=== PATIENT | female | born 1960 | race Caucasian/White ===

== ENCOUNTER → 2020-08-11 14:23 | Outpatient (BNV) | payer MEDICARE, MEDICAID, SELFPAY | PROVIDERS: PCP Internal Medicine; Visit Provider Internal Medicine | DX: C7A.00 Malignant carcinoid tumor of unspecified site (principal) | CPT/HCPCS: 99213; 99214; G2211 ==

== ENCOUNTER → 2020-09-01 15:14 | Outpatient (BNVA) | payer MEDICARE, MEDICAID, SELFPAY | PROVIDERS: PCP Internal Medicine; Referring Provider Internal Medicine; Visit Provider Internal Medicine Cardiovascular Disease | DX: B35.1 Tinea unguium (principal); M79.672 Pain in left foot; M79.671 Pain in right foot | CPT/HCPCS: 93005 ==

== ENCOUNTER 2020-09-09 13:19 | Outpatient (REF) | payer MEDICARE, MEDICAID, SELFPAY ==
[2020-09-09 17:18] LABS: Anion Gap 15 (12-20); Blood Urea Nitrogen 23 mg/dL (9-16); Calcium 8.1 mg/dL (8.4-10.2); Carbon Dioxide 27 mmol/L (22-29); Chloride 104 mmol/L (96-108); Estimated Glomerular Filt Rate > 60; Glucose Random 106 mg/dL (60-115); Sodium 141 mmol/L (135-145)
== END 2020-09-09 13:20 | disposition home or self-care (01) ==
LOC: HO.HMGCLDS 13:19
PROVIDERS: Absent Provider Internal Medicine; PCP Internal Medicine; Visit Provider Internal Medicine
DX: Z20.828 Contact with and (suspected) exposure to other viral communicable diseases (principal)
CPT/HCPCS: 80048; C9803; U0003

== ENCOUNTER 2020-09-09 23:33 | Emergency (ER) | payer MEDICARE, MEDICAID, SELFPAY ==
[2020-09-09 23:51] VITALS: BP 113/61; PULSE 72; RESP 16; TEMP 37.1; O2SAT 97; BMI 23.5
[2020-09-10] VITALS: PULSE 78; RESP 16; O2SAT 100
--- NOTE | 2020-09-10 00:23 | PC.NURSE ---
PT TO ROOM, CHG INTO GOWN AND MD AT BEDSIDE WITH PT. PT ARRIVES ALERT, RESPIRATIONS EASY, N/L. SKIN W/D. PT C/O TIGHTNESS TO MID STERNAL CHEST AREA, RATING PAIN 4/10. VS OBTAINED. PT WAS TESTED FOR COVID TODAY WITH RESULTS PENDING.
--- NOTE | 2020-09-10 00:25 | ECG_ITS ---
Test Reason : CHEST PAIN Blood Pressure : / mmHG Vent. Rate : 073 BPM Atrial Rate : 073 BPM P-R Int : 228 ms QRS Dur : 070 ms QT Int : 380 ms P-R-T Axes : 090 042 076 degrees QTc Int : 418 ms Sinus rhythm with 1st degree A-V block Otherwise normal ECG When compared with ECG of 25-JUL-2020 19:11, Premature atrial complexes are no longer Present Referred By: Maria Guadalupe Menchaca Electronically Signed By:EDUARDO LARKIN MD
--- NOTE | 2020-09-10 00:25 | XR_ITS ---
EXAMINATION: CHEST 1 VIEW CLINICAL INFORMATION: Chest pain. COMPARISON: 07/25/2020. TECHNIQUE: An AP view of the chest is provided. FINDINGS: The cardiac silhouette is not enlarged. The mediastinal and hilar contours are unremarkable. There are neither pleural effusions nor pneumothoraces. There are no consolidations. The osseous structures are stable. XR/XR chest 1V IMPRESSION: No evidence for acute disease.
--- NOTE | 2020-09-10 00:33 | ED.CHESTPAIN ---
HPI - Chest Pain General Chief Complaint: Chest Pain Stated Complaint: burning senstation in chest after covid testing Time Seen by Provider: 09/10/20 00:24 History of Present Illness HPI narrative: 60 years old history of high cholesterol presents today with having chest pain. The chest pain is sharp in nature is over middle of the chest. This been ongoing for about the last 2-1/2 hours. Patient denies any shortness of breath. No diaphoresis. No nausea no vomiting. Had not had a stress test in over last 5 years. Has not have any fever chills. No coughing. Related Data Home Medications Medication Instructions Recorded Confirmed albuterol mcg INHALATION 08/11/20 09/08/20 apixaban [Eliquis] 5 mg PO BID 08/11/20 09/08/20 cholecalciferol (vitamin D3) 25 mcg PO DAILY 08/11/20 09/08/20 [Vitamin D3] clonazepam 0.5 mg PO BID 08/11/20 09/08/20 docusate sodium [Colace] 100 mg PO DAILY 08/11/20 09/08/20 loperamide [Imodium] 2 mg PO Q6H PRN 08/11/20 09/08/20 omeprazole 20 mg PO DAILY 08/11/20 09/08/20 oxybutynin chloride 10 mg PO DAILY 08/11/20 09/08/20 oxycodone 5 mg PO Q4H PRN 08/11/20 09/08/20 simvastatin 20 mg PO QPM 08/11/20 09/08/20 dicyclomine 10 mg capsule 20 mg PO QID cap 09/08/20 09/08/20 meclizine 25 mg tablet 25 mg PO DAILY 09/08/20 09/08/20 Previous Rx's Medication Instructions Recorded loratadine 10 mg tablet 10 mg PO DAILY 90 Days #90 tab 08/25/20 montelukast 10 mg tablet 10 mg PO DAILY 90 Days #90 tab 08/25/20 dronedarone 400 mg tablet 400 mg PO BID 30 Days #60 tab 09/04/20 Allergies Allergy/AdvReac Type Severity Reaction Status Date / Time Erythromycin Allergy Unknown GI upset, Verified 08/19/20 11:03 increases pain erythromycin base AdvReac Intermediate GI UPSET Unverified 07/16/20 17:48 [Erythromycin Base] Motrin AdvReac Unknown GI Upset, Verified 08/19/20 11:03 increases pain Chocolate Allergy Mild RASH Uncoded 07/16/20 17:48 Environmental Allergy Unknown Unknown Uncoded 08/19/20 11:03 Review of Systems Review of Systems: Constitutional: No Weight loss, No Fever, No Chills, No Night Sweats, No Fatigue, No Malaise ENT/Mouth: No Hearing loss, No Ear Pain, No Nasal Congestion, No Sinus Pain, No Hoarseness, No sore throat, No Rhinorrhea, No Swallowing Difficulty Eyes: No Eye Pain, No Swelling, No Redness, No Foreign Body, No Discharge, No Vision Changes Cardiovascular: Positive Chest Pain, No SOB, No Dyspnea on Exertion, No Orthopnea, No Edema, No Palpitations Respiratory: No Cough, No Sputum, No Wheezing, No Smoke Exposure, No Dyspnea Gastrointestinal: No Nausea, No Vomiting, No Diarrhea, No Constipation, No abdominal Pain, No Hematochezia, No Melena Genitourinary: no irregular bleeding, No Dysuria, No Urinary Frequency, No Hematuria, No Urinary Incontinence, No Urgency, No Flank Pain, No Urinary Flow Changes, No Hesitancy Musculoskeletal: No joint pain, No Myalgias, No Joint Swelling Skin: No Skin Lesions, No rash Neuro: No Weakness, No Numbness, No Paresthesias, No Loss of Consciousness, No Dizziness, No Headache Psych: No Anxiety/Panic, No Depression, No SI/HI/AH/VH, No Social Issues, Heme/Lymph: No Bruising, No Bleeding,No Lymphadenopathy Endocrine: No Polyuria, No Polydipsia, No Temperature Intolerance Yes all other systems are reviewed and are negative [facility] Past Medical History Attestation statement: The following information was validated with the patient. Medical History Afib Anemia Arthritis Asthma Colon polyp Diabetes Environmental allergies Gastric polyp GERD (gastroesophageal reflux disease) Hyperlipemia IBS (irritable bowel syndrome) Lipid disorder Neuroendocrine neoplasm of gastrointestinal tract Overactive bladder Vitamin D deficiency Surgical History History of colonoscopy History of esophagogastroduodenoscopy Family History Family History Father Afib Pneumonia Brother Afib Heart disease Brother Heart disease Mother Unknown family medical history Social History Social History Housing: Assisted Living Facility Alcohol intake: never Smoking Status: Never smoker Advance Directives: No Advance Directives Information Provided: No Physical Exam Vital Signs: Vital Signs: Last Vital Signs Temp 98.8 F 09/09/20 23:51 Pulse 78 09/10/20 00:00 Resp 16 09/10/20 00:00 BP 113/61 09/09/20 23:51 Pulse Ox 100 09/10/20 00:00 Body Mass Index 23.5 Appearance: Alert. Oriented X3. No acute distress. Eyes: Pupils equal, round and reactive to light. ENT: Pharynx normal. Neck: Normal inspection. Neck supple. No lymph nodes noted. No crepitus CVS: Normal heart rate and rhythm. Pulses normal. Normal S1 and S2 Respiratory: No respiratory distress. Breath sounds normal. No Wheezing. No rales Abdomen: Soft and nontender. No rigidity. No distention. good BS x4 Skin: Skin warm and dry. Normal skin color. Normal skin turgor. Extremities: No lower extremity edema. Neurovascular intact to all extremities. No Lacerations. No Rash Neuro: Oriented X 3. No motor deficit. No sensory deficit. Moving all extermities. No slurred speech Discharge Plan Discharge Prescriptions: No Action montelukast [Singulair] 10 mg tablet 10 mg PO DAILY 90 Days Qty: 90 RF: 3 loratadine 10 mg tablet 10 mg PO DAILY 90 Days Qty: 90 RF: 3 Multaq 400 mg tablet 400 mg PO BID 30 Days Qty: 60 RF: 5 oxybutynin chloride 10 mg Tablet Extended Release 24hr 10 mg PO DAILY RF: 0 simvastatin 20 mg Tablet 20 mg PO QPM RF: 0 docusate sodium [Colace] 100 mg Capsule 100 mg PO DAILY RF: 0 albuterol 90 mcg/actuation Aerosol INHALATION RF: 0 cholecalciferol (vitamin D3) [Vitamin D3] 25 mcg (1,000 unit) Capsule 25 mcg PO DAILY RF: 0 omeprazole 20 mg Tablet,Delayed Release (Dr/Ec) 20 mg PO DAILY RF: 0 loperamide [Imodium] 2 mg Capsule 2 mg PO Q6H PRN (Reason: Diarrhea) RF: 0 clonazepam 0.5 mg Tablet 0.5 mg PO BID RF: 0 oxycodone 5 mg Capsule 5 mg PO Q4H PRN (Reason: Pain) RF: 0 Eliquis 5 mg Tablet 5 mg PO BID RF: 0 dicyclomine 10 mg capsule 20 mg PO QID RF: 0 meclizine 25 mg tablet 25 mg PO DAILY RF: 0
[2020-09-10 01:45] LABS: MANUAL DIFF FLAG NO
[2020-09-10 01:49] LABS: Basophils Percent Auto 0.3 % (0-2); Eosinophils Absolute Auto 0.1 X10*3/uL (0.0-0.4); Eosinophils Percent Auto 0.9 % (0-4); Hematocrit 33.8 % (37-47); Hemoglobin 10.8 g/dl (12.0-16.0); Imm Gran Abs Auto 0.02 X10*3/uL (0.00-0.03); Imm Gran Pct Auto 0.3 % (0.0-0.4); Lymphocytes Absolute Auto 2.1 X10*3/uL (1.2-4.9); Mean Corpuscular Hemoglobin 30.9 pg (27.0-33.0); Mean Corpuscular Volume 96.6 fL (80-98); Mean Platelet Volume 10.2 fL (9.4-12.3); Monocytes Absolute Auto 0.6 X10*3/uL (0.1-1.2); Monocytes Percent Auto 7.3 % (2-11); Neutrophils Percent Auto 64.2 % (45-73); Platelet Count 231 X10*3/uL (160-400); Red Cell Distribution Width 13.6 % (11.0-16.0); White Blood Count 7.7 X10*3/uL (4.8-10.8)
[2020-09-10 01:58] LABS: D Dimer < 200 NG/ML
[2020-09-10 02:13] LABS: Anion Gap 12 (12-20); Blood Urea Nitrogen 22 mg/dL (9-16); COVID-19 Test Negative (Negative); Calcium 8.2 mg/dL (8.4-10.2); Carbon Dioxide 28 mmol/L (22-29); Chloride 106 mmol/L (96-108); Creatinine Clr Calc Pharmacy 47.6; Estimated Glomerular Filt Rate > 60; Glucose Random 165 mg/dL (60-115); Potassium 4.5 mmol/l (3.3-5.1); Sodium 141 mmol/L (135-145)
[2020-09-10 02:14] LABS: Alanine Aminotransferase 12 U/L (0-31); Alkaline Phosphatase 59 U/L (39-117); Aspartate Amino Transferase 12 U/L (5-31); Bilirubin Direct < 0.2 mg/dL (0.0-0.5); Bilirubin Total 0.2 mg/dL (0.0-1.0); Lipase 54 U/L (8-78); Total Protein 6.5 g/dL (6.5-8.0)
[2020-09-10 02:21] LABS: Troponin-I High Sensitivity < 3.5 ng/L (<3.5-17.0)
[2020-09-10 04:00] VITALS: BP 107/53; PULSE 81; RESP 16
[2020-09-10 06:00] VITALS: BP 107/53; PULSE 67; RESP 16
[2020-09-10 07:11] LABS: Troponin-I High Sensitivity < 3.5 ng/L (<3.5-17.0)
--- NOTE | 2020-09-10 07:16 | PC.NURSE ---
PT RESTING IN THE STRETCHER ALERT AND ORIENTED, SKIN PWD, RESPIRATIONS EVEN AND UNLABORED, LS CLEAR. PT DENIES CHEST PAIN/SOB, AWAITING FOR BLOOD TEST RESULTS
--- NOTE | 2020-09-10 07:27 | PC.NURSE ---
PT'S WORKER FROM [facility] CALLED REQUESTING THAT THE HOSPITAL TRANSPORTS THE PT BACK [facility] THEY ARE UNABLE TO PICK THE PT UP AT THIS TIME, PT DOES HAVE SOME DEVELOPMENTAL DELAYS.
== END 2020-09-10 07:57 | disposition home or self-care (01) ==
PROVIDERS: Emergency Medicine Emergency Medical Services; Emergency Provider Emergency Medicine
DX: R07.9 Chest pain, unspecified (principal); E78.00 Pure hypercholesterolemia, unspecified; Z79.899 Other long term (current) drug therapy
CPT/HCPCS: 36415; 71045; 80048; 80076; 83690; 84484; 85025; 85379; 87635; 93005; 99284

== ENCOUNTER 2020-10-03 01:20 | Emergency (ER) | payer MEDICARE, MEDICAID, SELFPAY ==
[2020-10-03 01:23] VITALS: BP 116/67; PULSE 80; PULSE 82; RESP 18; TEMP 37.2; O2SAT 97; BMI 32.4
[2020-10-03 01:42] LABS: OBS Int Ctl Valid YES; OBS1 NEG (NEG)
--- NOTE | 2020-10-03 01:48 | ED.GENADULT ---
HPI - General Adult General Chief complaint: General Medical Stated complaint: BLOOD IN STOOL Time Seen by Provider: 10/03/20 01:34 Source: patient Mode of arrival: EMS Limitations: no limitations History of Present Illness HPI narrative: patient came in ambulance for seeing whitish stuff in the stool thought has a worm and slight reddish of thinking blood in the stool no abdominal pain stool was brown in color patient brought the stool sample which is well-formed brown color and with small whitish tissue no blood was seen Related Data Home Medications Medication Instructions Recorded Confirmed albuterol mcg INHALATION 08/11/20 09/19/20 cholecalciferol (vitamin D3) 25 mcg PO DAILY 08/11/20 09/19/20 [Vitamin D3] docusate sodium [Colace] 100 mg PO DAILY 08/11/20 09/19/20 loperamide [Imodium] 2 mg PO Q6H PRN 08/11/20 09/19/20 omeprazole 20 mg PO DAILY 08/11/20 09/19/20 oxybutynin chloride 10 mg PO DAILY 08/11/20 09/19/20 oxycodone 5 mg PO Q4H PRN 08/11/20 09/19/20 simvastatin 20 mg PO QPM 08/11/20 09/19/20 meclizine 25 mg tablet 25 mg PO DAILY 09/08/20 09/19/20 dicyclomine 20 mg tablet 20 mg PO TID PRN 09/18/20 09/19/20 loperamide 2 mg capsule 2 mg PO Q6H PRN 09/18/20 09/19/20 Previous Rx's Medication Instructions Recorded loratadine 10 mg tablet 10 mg PO DAILY 90 Days #90 tab 08/25/20 montelukast 10 mg tablet 10 mg PO DAILY 90 Days #90 tab 08/25/20 dronedarone 400 mg tablet 400 mg PO BID 30 Days #60 tab 09/04/20 apixaban 5 mg tablet 5 mg PO BID #60 tab 10/02/20 Allergies Allergy/AdvReac Type Severity Reaction Status Date / Time Erythromycin Allergy Unknown GI upset, Verified 09/18/20 14:28 increases pain erythromycin base AdvReac Intermediate GI UPSET Verified 09/18/20 14:28 [Erythromycin Base] Motrin AdvReac Unknown GI Upset, Verified 09/18/20 14:28 increases pain Chocolate Allergy Mild RASH Uncoded 07/16/20 17:48 Environmental Allergy Unknown Unknown Uncoded 08/19/20 11:03 Review of Systems Review of Systems: REVIEW OF SYSTEMS: Pertinent positives and negatives are stated above in the history. GEN: no fevers, chills, fatigue HEENT: no nasal congestion, sore throat, ear pain NEURO: no headache, dizziness, focal weakness PULM: no cough, shortness of breath CV: no chest pain, palpitations, LE edema ABD: no abdominal pain, nausea, vomiting, diarrhea : no dysuria, urgency, frequency SKIN: no rash ROS otherwise negative x 10 PMFSH Past Medical History Medical History Afib Anemia Arthritis Asthma Colon polyp Diabetes Environmental allergies Gastric polyp GERD (gastroesophageal reflux disease) Hyperlipemia IBS (irritable bowel syndrome) Lipid disorder Neuroendocrine neoplasm of gastrointestinal tract Overactive bladder Vitamin D deficiency Surgical History History of colonoscopy History of esophagogastroduodenoscopy Family History Family History Father Afib Pneumonia Brother Afib Heart disease Brother Heart disease Mother Unknown family medical history Social History Social History Housing: Assisted Living Facility Alcohol intake: never Smoking Status: Former smoker Smoked in Last 30 Days: No Use of substances other than those prescribed or required for medical reasons: No Any prior treatment program specific to substance use: No Advance Directives: No Advance Directives Information Provided: No Physical Exam Vital Signs: Vital Signs: Last Vital Signs Temp 99 F 10/03/20 01:23 Pulse 82 10/03/20 01:23 Resp 18 10/03/20 01:23 BP 116/67 10/03/20 01:23 Pulse Ox 97 10/03/20 01:23 Body Mass Index 32.4 Appearance: Alert. Oriented X3. No acute distress. Eyes: Pupils equal, round and reactive to light. ENT: Pharynx normal. Neck: Normal inspection. Neck supple. CVS: Normal heart rate and rhythm. Pulses normal. Respiratory: No respiratory distress. Breath sounds normal. Abdomen: Soft and nontender. rectal exam: brown stool Hemoccult negative no worm seen Skin: Skin warm and dry. Normal skin color. Normal skin turgor. Extremities: No lower extremity edema. Good range of movement Neuro: Oriented X 3. No motor deficit. No sensory deficit. Medical Decision Making Lab Data Lab results reviewed: Yes I reviewed the patient's lab results. Labs: Lab Results 10/03/20 Range/Units 01:34 Stool Occult Blood NEG (NEG) Discharge Plan Discharge Clinical Impression: Normal exam Patient Disposition: Home, Self-Care Instructions: Normal Exam (ED) Additional Instructions: no blood or worm seen in your stool today follow-up with PCP Prescriptions: No Action montelukast [Singulair] 10 mg tablet 10 mg PO DAILY 90 Days Qty: 90 RF: 3 loratadine 10 mg tablet 10 mg PO DAILY 90 Days Qty: 90 RF: 3 Multaq 400 mg tablet 400 mg PO BID 30 Days Qty: 60 RF: 5 apixaban [Eliquis] 5 mg tablet 5 mg PO BID Qty: 60 RF: 5 oxybutynin chloride 10 mg Tablet Extended Release 24hr 10 mg PO DAILY RF: 0 simvastatin 20 mg Tablet 20 mg PO QPM RF: 0 docusate sodium [Colace] 100 mg Capsule 100 mg PO DAILY RF: 0 albuterol 90 mcg/actuation Aerosol INHALATION RF: 0 cholecalciferol (vitamin D3) [Vitamin D3] 25 mcg (1,000 unit) Capsule 25 mcg PO DAILY RF: 0 omeprazole 20 mg Tablet,Delayed Release (Dr/Ec) 20 mg PO DAILY RF: 0 loperamide [Imodium] 2 mg Capsule 2 mg PO Q6H PRN (Reason: Diarrhea) RF: 0 oxycodone 5 mg Capsule 5 mg PO Q4H PRN (Reason: Pain) RF: 0 meclizine 25 mg tablet 25 mg PO DAILY RF: 0 dicyclomine 20 mg tablet 20 mg PO TID PRNRF: 0 loperamide [Imodium A-D] 2 mg capsule 2 mg PO Q6H PRNRF: 0
== END 2020-10-03 02:00 | disposition home or self-care (01) ==
LOC: HO.ED 01:52
PROVIDERS: Emergency Provider Internal Medicine
DX: Z03.89 Encounter for observation for other suspected diseases and conditions ruled out (principal); R19.5 Other fecal abnormalities; E11.9 Type 2 diabetes mellitus without complications; I48.91 Unspecified atrial fibrillation
CPT/HCPCS: 82272; 99283

== ENCOUNTER 2020-12-01 15:22 | Outpatient (REF) | payer MEDICARE, MEDICAID, SELFPAY ==
--- NOTE | 2020-12-01 15:25 | MM_ITS ---
EXAMINATION: MM SCREENING DIGITAL BREAST TOMOSYNTHESIS, BILATERAL CLINICAL INFORMATION: Screening. Asymptomatic. The lifetime risk of breast cancer based on the Tyrer-Cuzick Model is 8.3%. COMPARISON: Mammography: November 26, 2019 and studies dating back to May 17, 2012 TECHNIQUE: Digital breast tomosynthesis is performed in both the craniocaudal and mediolateral oblique views along with computer-aided detection (CAD). Synthesized 2D images are generated from the tomosynthesis. Bilateral exaggerated craniocaudal views performed. FINDINGS: There are scattered areas of fibroglandular density (ACR BI-RADS breast composition Category b). There are no significant masses, abnormal calcifications, or other abnormalities. MM/MM tomosynthesis screening BI IMPRESSION: There are no significant changes from prior study. ASSESSMENT: BI-RADS 1: Negative RECOMMENDATION: Routine annual mammography screening. This patient's information was entered into a reminder system with a target due date for their next mammogram.
== END 2020-12-01 15:23 | disposition home or self-care (01) ==
LOC: HO.MAMMO 15:22
PROVIDERS: PCP Internal Medicine; Visit Provider Internal Medicine
DX: Z12.31 Encounter for screening mammogram for malignant neoplasm of breast (principal)
CPT/HCPCS: 77063; 77067

== ENCOUNTER → 2020-12-10 15:15 | Outpatient (BNVA) | payer MEDICARE, MEDICAID, SELFPAY | PROVIDERS: PCP Internal Medicine; Visit Provider Internal Medicine Cardiovascular Disease | DX: I48.0 Paroxysmal atrial fibrillation (principal) | CPT/HCPCS: 93005; 99212 ==

== ENCOUNTER → 2021-03-09 15:02 | Outpatient (BNVA) | payer MEDICARE, MEDICAID, SELFPAY | PROVIDERS: PCP Internal Medicine; Visit Provider Internal Medicine Cardiovascular Disease | DX: I44.0 Atrioventricular block, first degree (principal) | CPT/HCPCS: 93005 ==

== ENCOUNTER 2021-03-16 16:18 | Emergency (ER) | payer MEDICARE, MEDICAID, SELFPAY ==
--- NOTE | ~2021-03-16 | XR_ITS ---
EXAMINATION: CR CHEST CLINICAL INFORMATION: Weakness. COMPARISON: Chest x-ray dated 09/10/2020, and 04/05/2019.. TECHNIQUE: AP portable upright view of the chest was obtained. FINDINGS: The cardiomediastinal silhouette is within normal limits in size. Lungs bilaterally are symmetrically hyperinflated. No focal consolidation, effusion or pneumothorax is seen. Bony structures are unremarkable. XR/XR chest 1V IMPRESSION: No acute cardiopulmonary process seen.
[2021-03-16 16:43] VITALS: BP 117/59; PULSE 74; RESP 18; TEMP 37.1; O2SAT 96; BMI 27.6
--- NOTE | 2021-03-16 21:36 | ED_ITS ---
HPI - Weakness General Chief complaint: Recheck/Abnormal Lab/Rx Stated complaint: low bp Time Seen by Provider: 03/16/21 21:36 Source: patient Mode of arrival: ambulatory Limitations: no limitations History of Present Illness Complaint: generalized weakness Onset (ago): day(s) (today at oncology clinic) Duration: constant Location: generalized Migration: none Severity: mild Quality: dull Relieving factors: rest Exacerbating factors: movement Context: history of similar Associated symptoms: denies other symptoms Related Data Home Medications Medication Instructions Recorded Confirmed albuterol 90 mcg INHALATION NEEDED PRN 08/11/20 01/05/21 docusate sodium [Colace] 100 mg PO DAILY 08/11/20 01/05/21 loperamide [Imodium] 2 mg PO Q6H PRN 08/11/20 01/05/21 meclizine 25 mg tablet 25 mg PO DAILY PRN 09/08/20 01/05/21 dicyclomine 20 mg tablet 20 mg PO QID PRN 09/18/20 01/12/21 dicyclomine 1 cap PO TID 12/15/20 01/05/21 ferrous sulfate 1 tab PO DAILY 12/15/20 01/05/21 Previous Rx's Medication Instructions Recorded loratadine 10 mg tablet 10 mg PO DAILY 90 Days #90 tab 08/25/20 montelukast 10 mg tablet 10 mg PO DAILY 90 Days #90 tab 08/25/20 apixaban 5 mg tablet 5 mg PO BID #60 tab 10/02/20 cholecalciferol (vitamin D3) 25 1,000 unit PO DAILY 90 Days #90 cap 11/20/20 mcg (1,000 unit) capsule oxybutynin chloride 10 mg 10 mg PO DAILY #90 tab 01/12/21 tablet,extended release 24 hr omeprazole 20 mg capsule,delayed 20 mg PO DAILY #30 cap 02/19/21 release simvastatin 20 mg tablet 20 mg PO QPM 90 Days #90 tab 03/02/21 dronedarone 400 mg tablet 400 mg PO BID 30 Days #60 tab 03/03/21 Allergies Allergy/AdvReac Type Severity Reaction Status Date / Time Erythromycin Allergy Unknown GI upset, Verified 03/16/21 16:43 increases pain erythromycin base AdvReac Intermediate GI UPSET Verified 03/16/21 16:43 [Erythromycin Base] Motrin AdvReac Unknown GI Upset, Verified 03/16/21 16:43 increases pain Chocolate Allergy Mild RASH Uncoded 07/16/20 17:48 Environmental Allergy Unknown Unknown Uncoded 08/19/20 11:03 Review of Systems Review of Systems: Constitutional : No Weight loss, No Fever, No Chills, No Fatigue, No Malaise ENT/Mouth : No sore throat, No Rhinorrhea Eyes: No Eye Pain, No Swelling, No Redness Cardiovascular : No Chest Pain, No SOB, No Dyspnea on Exertion, No Orthopnea, No Edema, No Palpitations Respiratory : No Cough, No Sputum, No Wheezing Gastrointestinal : No Nausea, No Vomiting, No Diarrhea, No Constipation, No abdominal Pain, No Hematochezia, No Melena Genitourinary : No Dysuria, No Urinary Frequency, No Hematuria, Musculoskeletal : No joint pain, No Myalgias, No Joint Swelling Skin : No Skin Lesions, No rash Neuro : pos Weakness, No Numbness, pos Dizziness, No Headache Psych : No Anxiety/Panic, No Depression Heme/Lymph: No Bruising, No Bleeding,No Lymphadenopathy Endocrine : No Polyuria, No Polydipsia All other systems reviewed and are negative [facility] Past Medical History Attestation statement: The following information was validated with the patient. Medical History Anemia Arthritis Asthma Colon polyp Diabetes Environmental allergies Gastric polyp GERD (gastroesophageal reflux disease) Hyperlipemia IBS (irritable bowel syndrome) Lipid disorder Neuroendocrine neoplasm of gastrointestinal tract Overactive bladder Paroxysmal atrial fibrillation Vitamin D deficiency Surgical History History of colonoscopy History of esophagogastroduodenoscopy Family History Family History Father Afib Pneumonia Brother Afib Heart disease Brother Heart disease Mother Unknown family medical history Social History Social History Housing: Assisted Living Facility Alcohol intake: never Smoking Status: Former smoker Advance Directives: No Advance Directives Information Provided: No Physical Exam Vital Signs: Vital Signs: Last Vital Signs Temp 98.1 F 03/16/21 22:32 Pulse 66 03/16/21 23:36 Resp 16 03/16/21 23:36 BP 160/67 H 03/16/21 23:36 Pulse Ox 97 03/16/21 23:36 Body Mass Index 27.6 Appearance: Alert. Oriented X3. No acute distress. Eyes: Pupils equal, round and reactive to light. ENT: Pharynx normal. Neck: Normal inspection. Neck supple. CVS: Normal heart rate and rhythm. Pulses normal. Respiratory: No respiratory distress. Breath sounds normal. Abdomen: Soft and non-tender. Skin: Skin warm and dry. pale skin color. Normal skin turgor. Extremities: No lower extremity edema. No calf ttp Neuro: Oriented X 3. No motor deficit. No sensory deficit. Course Course Course Narrative: no UTI, BP up, stable h/h can be DC at this time, feels much better no acute findings at this time BP resolved MDM - Weakness MDM Narrative Medical decision making narrative: 60 yo female hx of carcinoid tumor receiving injections for it, PAF on AC therapy here with dizziness upon standing only and low BP at onc clinic 90s/60s no GIB symptoms, denies fevers will need labs, hydration, CXR and UA - possible poor PO intake vs anemia, dispo per results and findings Lab Data Result diagrams: 03/16/21 23:17 03/16/21 23:17 Labs: Lab Results 03/16/21 03/16/21 03/16/21 Range/Units 22:50 23:17 23:17 WBC 6.5 (4.8-10.8) X10*3/uL RBC 3.55 L (4.20-5.50) X10*6/uL Hgb 10.9 L (12.0-16.0) g/dl Hct 34.2 L (37-47) % MCV 96.3 (80-98) fL MCH 30.7 (27.0-33.0) pg MCHC 31.9 (31.0-35.0) g/dl RDW 14.3 (11.0-16.0) % Plt Count 243 (160-400) X10*3/uL MPV 9.9 (9.4-12.3) fL Immature Gran % (Auto) 0.3 (0.0-0.4) % Neut % (Auto) 55.5 (45-73) % Lymph % (Auto) 34.3 (20-40) % [place] % (Auto) 8.5 (2-11) % Eos % (Auto) 0.9 (0-4) % Baso % (Auto) 0.5 (0-2) % Lymph # (Auto) 2.2 (1.2-4.9) X10*3/uL [place] # (Auto) 0.6 (0.1-1.2) X10*3/uL Eos # (Auto) 0.1 (0.0-0.4) X10*3/uL Baso # (Auto) 0.0 (0.0-0.2) X10*3/uL Abs Immat Gran (auto) 0.02 (0.00-0.03) X10*3/uL Absolute Neuts (auto) 3.6 (2.0-8.3) X10*3/uL Absolute Nucleated RBC 0.000 (0.0-0.012) X10*3/uL Nucleated RBC % (auto) 0.0 (0.0-0.2) /100WBC Hold Blue Top SEE NOTE Sodium (135-145) mmol/L Potassium (3.3-5.1) mmol/L Chloride (96-108) mmol/L Carbon Dioxide (22-29) mmol/L Anion Gap (12-20) BUN (9-16) mg/dL Creatinine (0.5-1.4) mg/dL Estim Creat Clear Calc Estimated GFR Random Glucose (60-115) mg/dL Lactic Acid (0.5-2.0) mmol/L Calcium (8.4-10.2) mg/dL Magnesium (1.6-2.6) mg/dL Total Bilirubin (0.0-1.0) mg/dL Direct Bilirubin (0.0-0.5) mg/dL AST (5-31) U/L ALT (0-31) U/L Alkaline Phosphatase (39-117) U/L Total Protein (6.5-8.0) g/dL Albumin (3.5-5.0) g/dL Lipase (8-78) U/L Urine Color YELLOW Urine Appearance CLEAR Urine pH 5.5 (5.0-8.0) Ur Specific [place] 1.025 (1.005-1.025) Urine Protein NEG (NEG-TRACE) MG/DL Urine Glucose (UA) NEG (NEG) MG/DL Urine Ketones NEG (NEG) MG/DL Urine Blood NEG (NEG) Urine Nitrite NEG (NEG) Ur Leukocyte Esterase 1+ H (NEG) Urine RBC 1-4 (0) /HPF Urine WBC 1-4 (0-4) /HPF Ur Squamous Epith Cells 1+ /LPF Urine Bacteria 1+ /LPF 03/16/21 03/16/21 Range/Units 23:17 23:17 WBC (4.8-10.8) X10*3/uL RBC (4.20-5.50) X10*6/uL Hgb (12.0-16.0) g/dl Hct (37-47) % MCV (80-98) fL MCH (27.0-33.0) pg MCHC (31.0-35.0) g/dl RDW (11.0-16.0) % Plt Count (160-400) X10*3/uL MPV (9.4-12.3) fL Immature Gran % (Auto) (0.0-0.4) % Neut % (Auto) (45-73) % Lymph % (Auto) (20-40) % [place] % (Auto) (2-11) % Eos % (Auto) (0-4) % Baso % (Auto) (0-2) % Lymph # (Auto) (1.2-4.9) X10*3/uL [place] # (Auto) (0.1-1.2) X10*3/uL Eos # (Auto) (0.0-0.4) X10*3/uL Baso # (Auto) (0.0-0.2) X10*3/uL Abs Immat Gran (auto) (0.00-0.03) X10*3/uL Absolute Neuts (auto) (2.0-8.3) X10*3/uL Absolute Nucleated RBC (0.0-0.012) X10*3/uL Nucleated RBC % (auto) (0.0-0.2) /100WBC Hold Blue Top Sodium 143 (135-145) mmol/L Potassium 4.5 (3.3-5.1) mmol/L Chloride 106 (96-108) mmol/L Carbon Dioxide 29 (22-29) mmol/L Anion Gap 13 (12-20) BUN 20 H (9-16) mg/dL Creatinine 0.84 (0.5-1.4) mg/dL Estim Creat Clear Calc 53.9 Estimated GFR > 60 Random Glucose 114 (60-115) mg/dL Lactic Acid 1.9 (0.5-2.0) mmol/L Calcium 8.8 (8.4-10.2) mg/dL Magnesium 2.1 (1.6-2.6) mg/dL Total Bilirubin 0.3 (0.0-1.0) mg/dL Direct Bilirubin 0.2 (0.0-0.5) mg/dL AST 14 (5-31) U/L ALT 14 (0-31) U/L Alkaline Phosphatase 65 (39-117) U/L Total Protein 7.0 (6.5-8.0) g/dL Albumin 4.1 (3.5-5.0) g/dL Lipase 32 (8-78) U/L Urine Color Urine Appearance Urine pH (5.0-8.0) Ur Specific [place] (1.005-1.025) Urine Protein (NEG-TRACE) MG/DL Urine Glucose (UA) (NEG) MG/DL Urine Ketones (NEG) MG/DL Urine Blood (NEG) Urine Nitrite (NEG) Ur Leukocyte Esterase (NEG) Urine RBC (0) /HPF Urine WBC (0-4) /HPF Ur Squamous Epith Cells /LPF Urine Bacteria /LPF ECG Data Attestation: I personally reviewed and interpreted this ECG as follows: ECG interpretation date: 03/16/21 ECG interpretation time: 21:58 Interpretation: Rate: 78 Rhythm: NSR [place]: normal Normal P waves. 1st degree AVB Normal QRS complex. ST T wave : normal no ALIN qTC: normal prior studies: lin cute ischemia The study has been interpreted contemporaneously by me. . Discharge Plan Discharge Clinical Impression: Dizziness Hypotension Qualifiers: Hypotension type: other hypotension type Qualified Code(s): I95.89 - Other hypotension Patient Disposition: Home, Self-Care Instructions: Dizziness (ED), Hypotension (ED) Additional Instructions: return to ED for any worsening symptoms or concerns your blood work looked normal today Prescriptions: No Action montelukast [Singulair] 10 mg tablet 10 mg PO DAILY 90 Days Qty: 90 RF: 3 loratadine 10 mg tablet 10 mg PO DAILY 90 Days Qty: 90 RF: 3 apixaban [Eliquis] 5 mg tablet 5 mg PO BID Qty: 60 RF: 5 cholecalciferol (vitamin D3) 25 mcg (1,000 unit) capsule 1,000 unit PO DAILY 90 Days Qty: 90 RF: 3 oxybutynin chloride 10 mg tablet extended release 24hr 10 mg PO DAILY Qty: 90 RF: 0 omeprazole 20 mg capsule,delayed release(DR/EC) 20 mg PO DAILY Qty: 30 RF: 3 simvastatin 20 mg tablet 20 mg PO QPM 90 Days Qty: 90 RF: 1 Multaq 400 mg tablet 400 mg PO BID 30 Days Qty: 60 RF: 5 docusate sodium [Colace] 100 mg Capsule 100 mg PO DAILY RF: 0 albuterol 90 mcg/actuation Aerosol 90 mcg INHALATION NEEDED PRN (Reason: Bronchospasm) RF: 0 loperamide [Imodium] 2 mg Capsule 2 mg PO Q6H PRN (Reason: Diarrhea) RF: 0 dicyclomine 10 mg capsule 1 cap PO TID RF: 0 ferrous sulfate 324 mg (65 mg iron) tablet,delayed release (DR/EC) 1 tab PO DAILY RF: 0 meclizine 25 mg tablet 25 mg PO DAILY PRN (Reason: Dizziness) RF: 0 dicyclomine 20 mg tablet 20 mg PO QID PRN (Reason: Diarrhea) RF: 0 Referrals: Patti Crabtree MD [Primary Care Provider] - 2 days (if not better)
--- NOTE | 2021-03-16 21:40 | ECG_ITS ---
Test Reason : WEAKNESS Blood Pressure : / mmHG Vent. Rate : 078 BPM Atrial Rate : 078 BPM P-R Int : 244 ms QRS Dur : 060 ms QT Int : 384 ms P-R-T Axes : 081 023 059 degrees QTc Int : 437 ms Sinus rhythm with 1st degree A-V block Otherwise normal ECG When compared with ECG of 10-SEP-2020 01:32, No significant change was found Referred By: Paris Rodarte Electronically Signed By:ANIKA NIÑO MD
[2021-03-16 22:32] VITALS: BP 131/74; PULSE 72; RESP 18; TEMP 36.7; O2SAT 100
[2021-03-16 22:44] VITALS: BP 146/65; PULSE 66
[2021-03-16 22:47] VITALS: BP 160/67; PULSE 66
[2021-03-16 22:58] LABS: Glucose Urine UA NEG (NEG); Leukocyte Esterase Urine 1+ (NEG); Nitrite Urine NEG (NEG); PH 5.5 (5.0-8.0); Specific Gravity - Urine 1.025 (1.005-1.025); UACC Culture Trigger YES; Urine Blood NEG (NEG); Urine Ketones NEG (NEG); Urine Protein NEG (NEG-TRACE)
[2021-03-16 23:05] LABS: Appearance Urine CLEAR; Color Urine YELLOW
[2021-03-16 23:08] LABS: Bacteria Urine 1+ /LPF; Squamous Epithelial Cell Urine 1+ /LPF
[2021-03-16 23:26] LABS: MANUAL DIFF FLAG NO
[2021-03-16 23:28] LABS: Basophils Percent Auto 0.5 % (0-2); Eosinophils Absolute Auto 0.1 X10*3/uL (0.0-0.4); Eosinophils Percent Auto 0.9 % (0-4); Hematocrit 34.2 % (37-47); Hemoglobin 10.9 g/dl (12.0-16.0); Imm Gran Abs Auto 0.02 X10*3/uL (0.00-0.03); Imm Gran Pct Auto 0.3 % (0.0-0.4); Lymphocytes Absolute Auto 2.2 X10*3/uL (1.2-4.9); Lymphocytes Percent Auto 34.3 % (20-40); Mean Corpuscular HGB Conc 31.9 g/dl (31.0-35.0); Mean Corpuscular Hemoglobin 30.7 pg (27.0-33.0); Mean Corpuscular Volume 96.3 fL (80-98); Mean Platelet Volume 9.9 fL (9.4-12.3); Monocytes Absolute Auto 0.6 X10*3/uL (0.1-1.2); Monocytes Percent Auto 8.5 % (2-11); Neutrophils Absolute Auto 3.6 X10*3/uL (2.0-8.3); Neutrophils Percent Auto 55.5 % (45-73); Platelet Count 243 X10*3/uL (160-400); Red Blood Count 3.55 X10*6/uL (4.20-5.50); Red Cell Distribution Width 14.3 % (11.0-16.0); White Blood Count 6.5 X10*3/uL (4.8-10.8)
[2021-03-16 23:36] VITALS: BP 160/67; PULSE 66; RESP 16; O2SAT 97
[2021-03-16] MEDS: 0.9 % Sodium Chloride 1,000 ML 999 ML IVCONT (23:37)
[2021-03-16 23:49] LABS: Lactic Acid 1.9 mmol/L (0.5-2.0)
[2021-03-16 23:53] LABS: Alanine Aminotransferase 14 U/L (0-31); Albumin Level 4.1 g/dL (3.5-5.0); Alkaline Phosphatase 65 U/L (39-117); Anion Gap 13 (12-20); Aspartate Amino Transferase 14 U/L (5-31); Bilirubin Direct 0.2 mg/dL (0.0-0.5); Bilirubin Total 0.3 mg/dL (0.0-1.0); Blood Urea Nitrogen 20 mg/dL (9-16); Calcium 8.8 mg/dL (8.4-10.2); Carbon Dioxide 29 mmol/L (22-29); Chloride 106 mmol/L (96-108); Creatinine Clr Calc Pharmacy 53.9; Estimated Glomerular Filt Rate > 60; Glucose Random 114 mg/dL (60-115); Lipase 32 U/L (8-78); Magnesium 2.1 mg/dL (1.6-2.6); Potassium 4.5 mmol/L (3.3-5.1); Sodium 143 mmol/L (135-145)
== END 2021-03-17 01:59 | disposition home or self-care (01) ==
PROVIDERS: Emergency Provider Emergency Medicine; PCP Internal Medicine
DX: R42 Dizziness and giddiness (principal); I95.89 Other hypotension; R53.1 Weakness; D3A.8 Other benign 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 tumors; I48.0 Paroxysmal atrial fibrillation; E78.5 Hyperlipidemia, unspecified; E11.9 Type 2 diabetes mellitus without complications; K21.9 Gastro-esophageal reflux disease without esophagitis; Z79.01 Long term (current) use of anticoagulants; Z79.02 Long term (current) use of antithrombotics/antiplatelets; Z79.899 Other long term (current) drug therapy
CPT/HCPCS: 36415; 71045; 80048; 80076; 81001; 81003; 83605; 83690; 83735; 85025; 87040; 87086; 93005; 96360; 99284

== ENCOUNTER → 2021-04-08 15:30 | Outpatient (BNVA) | payer MEDICARE, MEDICAID, SELFPAY | PROVIDERS: PCP Internal Medicine; Referring Provider Internal Medicine; Visit Provider Nurse Practitioner Family | DX: I95.1 Orthostatic hypotension (principal); I48.0 Paroxysmal atrial fibrillation; R42 Dizziness and giddiness | CPT/HCPCS: 99212 ==

== ENCOUNTER 2021-05-13 14:28 | Emergency (ER) | payer MEDICARE, MEDICAID, SELFPAY ==
[2021-05-13 14:31] VITALS: BP 114/45; PULSE 88; RESP 16; TEMP 36.1; O2SAT 98; BMI 29.2
--- NOTE | 2021-05-13 16:35 | ECG_ITS ---
Test Reason : DIZZINESS Blood Pressure : / mmHG Vent. Rate : 056 BPM Atrial Rate : 056 BPM P-R Int : 220 ms QRS Dur : 078 ms QT Int : 418 ms P-R-T Axes : 093 016 054 degrees QTc Int : 403 ms Sinus bradycardia with 1st degree A-V block Otherwise normal ECG When compared with ECG of 16-MAR-2021 21:54, No significant change was found Referred By: Generic ED Physician Electronically Signed By:David Gomez
--- NOTE | 2021-05-13 18:11 | ED_ITS ---
HPI - Chest Pain General Chief Complaint: Dizziness Stated Complaint: cp Time Seen by Provider: 05/13/21 18:10 Source: patient Mode of arrival: ambulatory Limitations: no limitations History of Present Illness HPI narrative: Patient history of atrial fibrillation on Eliquis , diabetes, carcinoid tumor frequent chest pains been complaining of chest pain since yesterday night continues feels like pressure get worse on palpation feels anxious pain is similar to that in the past Related Data Home Medications Medication Instructions Recorded Confirmed albuterol 90 mcg INHALATION NEEDED PRN 08/11/20 04/20/21 docusate sodium [Colace] 100 mg PO DAILY 08/11/20 04/20/21 loperamide [Imodium] 2 mg PO Q6H PRN 08/11/20 04/20/21 meclizine 25 mg tablet 25 mg PO DAILY PRN 09/08/20 04/20/21 dicyclomine 20 mg tablet 20 mg PO QID PRN 09/18/20 04/20/21 dicyclomine 1 cap PO TID 12/15/20 04/20/21 ferrous sulfate 1 tab PO DAILY 12/15/20 04/20/21 Previous Rx's Medication Instructions Recorded loratadine 10 mg tablet 10 mg PO DAILY 90 Days #90 tab 08/25/20 montelukast 10 mg tablet 10 mg PO DAILY 90 Days #90 tab 08/25/20 cholecalciferol (vitamin D3) 25 1,000 unit PO DAILY 90 Days #90 cap 11/20/20 mcg (1,000 unit) capsule omeprazole 20 mg capsule,delayed 20 mg PO DAILY #30 cap 02/19/21 release simvastatin 20 mg tablet 20 mg PO QPM 90 Days #90 tab 03/02/21 dronedarone 400 mg tablet 400 mg PO BID 30 Days #60 tab 03/03/21 apixaban 5 mg tablet 5 mg PO BID #60 tab 03/22/21 oxybutynin chloride 10 mg 10 mg PO DAILY #90 tab 03/23/21 tablet,extended release 24 hr Allergies Allergy/AdvReac Type Severity Reaction Status Date / Time Erythromycin Allergy Unknown GI upset, Verified 03/30/21 14:04 increases pain erythromycin base AdvReac Intermediate GI UPSET Verified 03/30/21 14:04 [Erythromycin Base] Motrin AdvReac Unknown GI Upset, Verified 03/30/21 14:04 increases pain Chocolate Allergy Mild RASH Uncoded 03/30/21 14:04 Environmental Allergy Unknown Unknown Uncoded 03/30/21 14:04 Review of Systems Review of Systems: Yes all other systems are reviewed and are negative [facility] Past Medical History Medical History Anemia Arthritis Asthma Colon polyp Diabetes Environmental allergies Gastric polyp GERD (gastroesophageal reflux disease) Hyperlipemia IBS (irritable bowel syndrome) Lipid disorder Neuroendocrine neoplasm of gastrointestinal tract Overactive bladder Paroxysmal atrial fibrillation Vitamin D deficiency Surgical History History of colonoscopy History of esophagogastroduodenoscopy Family History Family History Father Afib Pneumonia Brother Afib Heart disease Brother Heart disease Mother Unknown family medical history Social History Social History Housing: Assisted Living Facility Housing Other:: [facility] Alcohol intake: never Advance Directives: No Advance Directives Information Provided: Yes Physical Exam Vital Signs: Vital Signs: Last Vital Signs Temp 97.0 F 05/13/21 14:31 Pulse 79 05/13/21 20:15 Resp 15 05/13/21 18:13 BP 124/69 05/13/21 20:15 Pulse Ox 99 05/13/21 18:13 Body Mass Index 29.2 Appearance: Alert. Oriented X3. No acute distress. Eyes: PERRLA, No Nystagmus ENT: Pharynx normal. Oral Mucosa moist Neck: Normal inspection. Neck supple. CVS: Normal heart rate and rhythm. Pulses normal. Chest wall tender to touch Respiratory: No respiratory distress. Equal air entry bilateral, no wheezing/rales/rhonchi Abdomen: Soft and nontender. Bowel sounds are present, no mass palpable, no CVA tenderness Skin: Skin warm and dry. Normal skin color. Normal skin turgor. Extremities: No lower extremity edema. No calf tenderness Neuro: Oriented X 3. No motor deficit. MDM - Chest Pain MDM Narrative Medical decision making narrative: Patient with atypical chest pain for longer than 24 hours negative high sensitive troponin EKG without any acute ischemic changes normal orthostatic will discharge patient home advised to follow with home office claims examiner as scheduled Medical Records Data Attestation: I reviewed the patient's medical records. Lab Data Attestation: I reviewed the patient's lab results. Result diagrams: 05/13/21 18:13 05/13/21 18:13 Labs: Lab Results 05/13/21 05/13/21 05/13/21 Range/Units 18:13 18:13 18:58 WBC 7.0 (4.8-10.8) X10*3/uL RBC 3.63 L (4.20-5.50) X10*6/uL Hgb 11.2 L (12.0-16.0) g/dl Hct 34.8 L (37-47) % MCV 95.9 (80-98) fL MCH 30.9 (27.0-33.0) pg MCHC 32.2 (31.0-35.0) g/dl RDW 13.4 (11.0-16.0) % Plt Count 271 (160-400) X10*3/uL MPV 9.9 (9.4-12.3) fL Immature Gran % (Auto) 0.3 (0.0-0.4) % Neut % (Auto) 52.3 (45-73) % Lymph % (Auto) 38.1 (20-40) % [place] % (Auto) 8.3 (2-11) % Eos % (Auto) 0.7 (0-4) % Baso % (Auto) 0.3 (0-2) % Lymph # (Auto) 2.7 (1.2-4.9) X10*3/uL [place] # (Auto) 0.6 (0.1-1.2) X10*3/uL Eos # (Auto) 0.1 (0.0-0.4) X10*3/uL Baso # (Auto) 0.0 (0.0-0.2) X10*3/uL Abs Immat Gran (auto) 0.02 (0.00-0.03) X10*3/uL Absolute Neuts (auto) 3.7 (2.0-8.3) X10*3/uL Absolute Nucleated RBC 0.000 (0.0-0.012) X10*3/uL Nucleated RBC % (auto) 0.0 (0.0-0.2) /100WBC PT 19.6 H (9.9-13.0) SEC INR 1.7 H (0.9-1.1) Sodium 141 (135-145) mmol/L Potassium 5.3 H (3.3-5.1) mmol/L Chloride 106 (96-108) mmol/L Carbon Dioxide 28 (22-29) mmol/L Anion Gap 12 (12-20) BUN 24 H (9-16) mg/dL Creatinine 1.04 (0.5-1.4) mg/dL Estim Creat Clear Calc 44.7 Estimated GFR 54 Random Glucose 139 H (60-115) mg/dL Calcium 9.1 (8.4-10.2) mg/dL Troponin I High Sens (<3.5-17.0) ng/L 05/13/21 Range/Units 18:58 WBC (4.8-10.8) X10*3/uL RBC (4.20-5.50) X10*6/uL Hgb (12.0-16.0) g/dl Hct (37-47) % MCV (80-98) fL MCH (27.0-33.0) pg MCHC (31.0-35.0) g/dl RDW (11.0-16.0) % Plt Count (160-400) X10*3/uL MPV (9.4-12.3) fL Immature Gran % (Auto) (0.0-0.4) % Neut % (Auto) (45-73) % Lymph % (Auto) (20-40) % [place] % (Auto) (2-11) % Eos % (Auto) (0-4) % Baso % (Auto) (0-2) % Lymph # (Auto) (1.2-4.9) X10*3/uL [place] # (Auto) (0.1-1.2) X10*3/uL Eos # (Auto) (0.0-0.4) X10*3/uL Baso # (Auto) (0.0-0.2) X10*3/uL Abs Immat Gran (auto) (0.00-0.03) X10*3/uL Absolute Neuts (auto) (2.0-8.3) X10*3/uL Absolute Nucleated RBC (0.0-0.012) X10*3/uL Nucleated RBC % (auto) (0.0-0.2) /100WBC PT (9.9-13.0) SEC INR (0.9-1.1) Sodium (135-145) mmol/L Potassium (3.3-5.1) mmol/L Chloride (96-108) mmol/L Carbon Dioxide (22-29) mmol/L Anion Gap (12-20) BUN (9-16) mg/dL Creatinine (0.5-1.4) mg/dL Estim Creat Clear Calc Estimated GFR Random Glucose (60-115) mg/dL Calcium (8.4-10.2) mg/dL Troponin I High Sens < 3.5 (<3.5-17.0) ng/L ECG Data ECG #1: Attestation: I personally reviewed and interpreted this ECG as follows: Interpretation: Sinus bradycardia with first-degree heart block heart rate 56 beats per minute no acute ST T wave changes no acute ischemia Discharge Plan Discharge Clinical Impression: Hyperkalemia Chest pain Qualifiers: Chest pain type: precordial pain Qualified Code(s): R07.2 - Precordial pain Patient Disposition: Home, Self-Care Instructions: Chest Pain (ED), Hyperkalemia (ED) Additional Instructions: Take Tylenol for pain Report to ER if worsening of chest pain avoid eating bananas /oranges Prescriptions: No Action montelukast [Singulair] 10 mg tablet 10 mg PO DAILY 90 Days Qty: 90 RF: 3 loratadine 10 mg tablet 10 mg PO DAILY 90 Days Qty: 90 RF: 3 cholecalciferol (vitamin D3) 25 mcg (1,000 unit) capsule 1,000 unit PO DAILY 90 Days Qty: 90 RF: 3 omeprazole 20 mg capsule,delayed release(DR/EC) 20 mg PO DAILY Qty: 30 RF: 3 simvastatin 20 mg tablet 20 mg PO QPM 90 Days Qty: 90 RF: 1 Multaq 400 mg tablet 400 mg PO BID 30 Days Qty: 60 RF: 5 Eliquis 5 mg tablet 5 mg PO BID Qty: 60 RF: 5 oxybutynin chloride 10 mg tablet extended release 24hr 10 mg PO DAILY Qty: 90 RF: 3 docusate sodium [Colace] 100 mg Capsule 100 mg PO DAILY RF: 0 albuterol 90 mcg/actuation Aerosol 90 mcg INHALATION NEEDED PRN (Reason: Bronchospasm) RF: 0 loperamide [Imodium] 2 mg Capsule 2 mg PO Q6H PRN (Reason: Diarrhea) RF: 0 dicyclomine 10 mg capsule 1 cap PO TID RF: 0 ferrous sulfate 324 mg (65 mg iron) tablet,delayed release (DR/EC) 1 tab PO DAILY RF: 0 meclizine 25 mg tablet 25 mg PO DAILY PRN (Reason: Dizziness) RF: 0 dicyclomine 20 mg tablet 20 mg PO QID PRN (Reason: Diarrhea) RF: 0 Interventions: ED Discharge Assessment Last Done: 05/13/21 20:23 Discharge Date/Time: 05/13/21 20:37
[2021-05-13 18:13] VITALS: BP 109/59; PULSE 61; RESP 15; O2SAT 99
[2021-05-13 18:24] LABS: MANUAL DIFF FLAG NO
[2021-05-13 18:29] LABS: Basophils Percent Auto 0.3 % (0-2); Eosinophils Absolute Auto 0.1 X10*3/uL (0.0-0.4); Eosinophils Percent Auto 0.7 % (0-4); Hematocrit 34.8 % (37-47); Hemoglobin 11.2 g/dl (12.0-16.0); Imm Gran Abs Auto 0.02 X10*3/uL (0.00-0.03); Imm Gran Pct Auto 0.3 % (0.0-0.4); Lymphocytes Absolute Auto 2.7 X10*3/uL (1.2-4.9); Lymphocytes Percent Auto 38.1 % (20-40); Mean Corpuscular HGB Conc 32.2 g/dl (31.0-35.0); Mean Corpuscular Hemoglobin 30.9 pg (27.0-33.0); Mean Corpuscular Volume 95.9 fL (80-98); Mean Platelet Volume 9.9 fL (9.4-12.3); Monocytes Absolute Auto 0.6 X10*3/uL (0.1-1.2); Monocytes Percent Auto 8.3 % (2-11); Neutrophils Absolute Auto 3.7 X10*3/uL (2.0-8.3); Neutrophils Percent Auto 52.3 % (45-73); Platelet Count 271 X10*3/uL (160-400); Red Blood Count 3.63 X10*6/uL (4.20-5.50); Red Cell Distribution Width 13.4 % (11.0-16.0)
[2021-05-13 18:50] LABS: Anion Gap 12 (12-20); Blood Urea Nitrogen 24 mg/dL (9-16); Calcium 9.1 mg/dL (8.4-10.2); Carbon Dioxide 28 mmol/L (22-29); Chloride 106 mmol/L (96-108); Creatinine Clr Calc Pharmacy 44.7; Estimated Glomerular Filt Rate 54; Glucose Random 139 mg/dL (60-115); Potassium 5.3 mmol/L (3.3-5.1); Sodium 141 mmol/L (135-145)
[2021-05-13 19:21] LABS: INTERNATIONAL NORM RATIO 1.7 (0.9-1.1); Prothrombin Time 19.6 SEC (9.9-13.0)
[2021-05-13 19:31] LABS: Troponin-I High Sensitivity < 3.5 ng/L (<3.5-17.0)
[2021-05-13 20:12] VITALS: BP 123/70; PULSE 65
[2021-05-13 20:13] VITALS: BP 137/76; PULSE 75
[2021-05-13 20:15] VITALS: BP 124/69; PULSE 79
[2021-05-13] MEDS: Sodium Polystyrene Sulfon/Sorb 15 GM/60 ML ORAL.SUSP 30 GM PO (20:19)
== END 2021-05-13 20:37 | disposition home or self-care (01) ==
PROVIDERS: Emergency Provider Internal Medicine; PCP Internal Medicine
DX: R07.2 Precordial pain (principal); E87.5 Hyperkalemia; I48.0 Paroxysmal atrial fibrillation; E11.9 Type 2 diabetes mellitus without complications; J45.909 Unspecified asthma, uncomplicated; Z79.01 Long term (current) use of anticoagulants; Z79.899 Other long term (current) drug therapy
CPT/HCPCS: 36415; 80048; 84484; 85025; 85610; 93005; 99284

== ENCOUNTER → 2021-06-10 15:04 | Outpatient (BNVA) | payer MEDICARE, MEDICAID, SELFPAY | PROVIDERS: PCP Internal Medicine; Visit Provider Nurse Practitioner Family | DX: R07.89 Other chest pain (principal); I95.1 Orthostatic hypotension; R42 Dizziness and giddiness; I48.0 Paroxysmal atrial fibrillation; E11.9 Type 2 diabetes mellitus without complications; E78.5 Hyperlipidemia, unspecified; E55.9 Vitamin D deficiency, unspecified | CPT/HCPCS: 93005; 99212 ==

== ENCOUNTER 2021-06-24 15:52 | Emergency (ER) | payer MEDICARE, MEDICAID, SELFPAY ==
[2021-06-24 15:56] VITALS: BP 108/51; PULSE 64; RESP 16; TEMP 36.6; O2SAT 98; BMI 27.1
--- NOTE | 2021-06-24 18:02 | ECG_ITS ---
Test Reason : DIZZY Blood Pressure : / mmHG Vent. Rate : 071 BPM Atrial Rate : 071 BPM P-R Int : 206 ms QRS Dur : 062 ms QT Int : 398 ms P-R-T Axes : 089 017 052 degrees QTc Int : 432 ms Sinus rhythm with occasional Premature ventricular complexes Otherwise normal ECG When compared with ECG of 13-MAY-2021 18:22, Premature ventricular complexes are now Present Referred By: Lacey Rubin Electronically Signed By:MIRELLA HATCH
--- NOTE | 2021-06-24 18:11 | ED_ITS ---
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 Admits to similar symptoms in the past. Also reports generalized fatigue/weakness. Wander es CP/SOB, headache, visual changes, nausea/vomiting, dysuria/hematuria, abdominal pain <RAVINDER Madrigal - Last Filed: 06/24/21 21:07> MD elicited complaint: dizziness <RAVINDER Madrigal - Last Filed: 06/24/21 21:07> Related Data Home Medications: Home Medications Medication Instructions Recorded Confirmed albuterol 90 mcg/actuation aerosol 90 mcg INHALATION NEEDED PRN 08/11/20 06/15/21 inhaler docusate sodium 100 mg capsule 100 mg PO DAILY 08/11/20 06/15/21 (Colace) loperamide 2 mg capsule 2 mg PO Q6H PRN 08/11/20 06/15/21 meclizine 25 mg tablet 25 mg PO DAILY PRN 09/08/20 06/15/21 dicyclomine 20 mg tablet 20 mg PO QID PRN 09/18/20 06/15/21 dicyclomine 10 mg capsule 1 cap PO TID 12/15/20 06/15/21 ferrous sulfate 324 mg (65 mg 1 tab PO DAILY 12/15/20 06/15/21 iron) tablet,delayed release dicyclomine 20 mg tablet 20 mg PO BID 06/15/21 06/15/21 Previous Rx's Medication Instructions Recorded loratadine 10 mg tablet 10 mg PO DAILY 90 Days #90 tab 08/25/20 montelukast 10 mg tablet 10 mg PO DAILY 90 Days #90 tab 08/25/20 (Singulair) cholecalciferol (vitamin D3) 25 1,000 unit PO DAILY 90 Days #90 cap 11/20/20 mcg (1,000 unit) capsule simvastatin 20 mg tablet 20 mg PO QPM 90 Days #90 tab 03/02/21 dronedarone 400 mg tablet (Multaq) 400 mg PO BID 30 Days #60 tab 03/03/21 apixaban 5 mg tablet (Eliquis) 5 mg PO BID #60 tab 03/22/21 oxybutynin chloride 10 mg 10 mg PO DAILY #90 tab 03/23/21 tablet,extended release 24 hr omeprazole 20 mg capsule,delayed 20 mg PO DAILY #90 cap 05/18/21 release cefuroxime axetil 250 mg tablet 250 mg PO BID 7 Days #14 tab 06/24/21 meclizine 25 mg tablet 25 mg PO TID PRN #14 tab 06/24/21 <RAVINDER Madrigal - Last Filed: 06/24/21 21:07> Allergies/Adverse Reactions: Allergies Allergy/AdvReac Type Severity Reaction Status Date / Time Erythromycin Allergy Unknown GI upset, Verified 06/10/21 15:17 increases pain erythromycin base AdvReac Intermediate GI UPSET Verified 06/10/21 15:17 [Erythromycin Base] Motrin AdvReac Unknown GI Upset, Verified 06/10/21 15:17 increases pain Chocolate Allergy Mild RASH Uncoded 03/30/21 14:04 Environmental Allergy Unknown Unknown Uncoded 03/30/21 14:04 <RAVINDER Madrigal - Last Filed: 06/24/21 21:07> Review of Systems Review of Systems: Constitutional: No Fever, No Chills, +Fatigue, No Malaise ENT/Mouth: No Ear Pain, No Nasal Congestion, No sore throat, No Rhinorrhea Eyes: No Eye Pain, No Vision Changes Cardiovascular: No Chest Pain, No SOB Respiratory: No Cough, No Sputum, No Dyspnea Gastrointestinal: No Nausea, No Vomiting, No Diarrhea, No Abdominal pain Genitourinary: No Dysuria, No Urinary Frequency, No Hematuria, No Urgency, No Flank Pain Musculoskeletal: No joint pain, No Myalgias Skin: No Skin Lesions, No rash Neuro: No Weakness, No Numbness, No Loss of Consciousness, + Dizziness, No Headache <RAVINDER Madrigal - Last Filed: 06/24/21 21:07> Yes all other systems are reviewed and are negative <RAVINDER Madrigal - Last Filed: 06/24/21 21:07> FORMERLY [facility] Past Medical History Attestation statement: The following information was validated with the patient. <RAVINDER Madrigal - Last Filed: 06/24/21 21:07> Medical History: Medical History Anemia Arthritis Asthma Colon polyp Diabetes Environmental allergies Gastric polyp GERD (gastroesophageal reflux disease) Hyperlipemia IBS (irritable bowel syndrome) Lipid disorder Neuroendocrine neoplasm of gastrointestinal tract Overactive bladder Paroxysmal atrial fibrillation Vitamin D deficiency <RAVINDER Madrigal - Last Filed: 06/24/21 21:07> Surgical History: Surgical History History of colonoscopy History of esophagogastroduodenoscopy <RAVINDER Madrigal - Last Filed: 06/24/21 21:07> Family History Family History: Family History Father Afib Pneumonia Brother Afib Heart disease Brother Heart disease Mother Unknown family medical history <RAVINDER Madrigal - Last Filed: 06/24/21 21:07> Social History Social History: Social History Housing: Assisted Living Facility Housing Other:: [facility] Alcohol intake: never Patient Tobacco Use Status: Never used Tobacco Advance Directives: No Advance Directives Information Provided: No <RAVINDER Madrigal - Last Filed: 06/24/21 21:07> Physical Exam Vital Signs: Vital Signs: Last Vital Signs Temp 97.9 F 06/24/21 23:17 Pulse 75 06/24/21 23:17 Resp 14 06/24/21 23:17 BP 113/70 06/24/21 23:17 Pulse Ox 97 06/24/21 23:17 Body Mass Index 27.1 <RAVINDER Madrigal Last Filed: 06/24/21 21:07> Vital Signs: Last Vital Signs Temp 97.9 F 06/24/21 23:17 Pulse 75 06/24/21 23:17 Resp 14 06/24/21 23:17 BP 113/70 06/24/21 23:17 Pulse Ox 97 06/24/21 23:17 Body Mass Index 27.1 <Rhiannon Cohen PA-C - Last Filed: 06/25/21 00:38> Course Course Course Narrative: -no leukocytosis, H&H to patient baseline, labs otherwise unremarkable -2029--on re-evaluation patient reports mild symptomatic improvement however got up for orthostatic vital signs felt dizzy upon position change, IV Benadryl/Ativan ordered >> orthostatic vital signs negative -UA infected > IV Rocephin given XR chest 1V IMPRESSION: No acute cardiopulmonary process seen. --2100--ED care transferred to RAVINDER John pending re-evaluation and anticipated discharge home <RAVINDER Madrigal Last Filed: 06/24/21 21:07> Reevaluation(s) Reevaluation #1: Ambulation trial performed, patient was able to take a few short steps but did not feel safe or stable per patient and per tech who performed the ambulation trial. Will give another 25 mg meclizine and reassess. <Rhiannon Cohen PA-C - Last Filed: 06/25/21 00:38> Time: 22:54 <Rhiannon Cohen PA-C - Last Filed: 06/25/21 00:38> Reevaluation #2: Patient did well with her ambulation trial and feels comfortable and safe to be discharged. She is requesting recall her worker to come pick her up. Will discharge. <Rhiannon Cohen PA-C - Last Filed: 06/25/21 00:38> Time: 00:38 <ARMAND Haywood Last Filed: 06/25/21 00:38> MDM - Dizziness Lab Data Result diagrams: : 06/24/21 18:47 06/24/21 18:47 <RAVINDER Madrigal Last Filed: 06/24/21 21:07> Labs: Lab Results 06/24/21 06/24/21 06/24/21 Range/Units 18:32 18:47 18:47 WBC 7.2 (4.8-10.8) X10*3/uL RBC 3.67 L (4.20-5.50) X10*6/uL Hgb 11.3 L (12.0-16.0) g/dl Hct 35.2 L (37-47) % MCV 95.9 (80-98) fL MCH 30.8 (27.0-33.0) pg MCHC 32.1 (31.0-35.0) g/dl RDW 13.2 (11.0-16.0) % Plt Count 222 (160-400) X10*3/uL MPV 10.5 (9.4-12.3) fL Immature Gran % (Auto) 0.4 (0.0-0.4) % Neut % (Auto) 53.9 (45-73) % Lymph % (Auto) 34.9 (20-40) % [place] % (Auto) 9.4 (2-11) % Eos % (Auto) 1.1 (0-4) % Baso % (Auto) 0.3 (0-2) % Lymph # (Auto) 2.5 (1.2-4.9) X10*3/uL [place] # (Auto) 0.7 (0.1-1.2) X10*3/uL Eos # (Auto) 0.1 (0.0-0.4) X10*3/uL Baso # (Auto) 0.0 (0.0-0.2) X10*3/uL Abs Immat Gran (auto) 0.03 (0.00-0.03) X10*3/uL Absolute Neuts (auto) 3.9 (2.0-8.3) X10*3/uL Absolute Nucleated RBC 0.000 (0.0-0.012) X10*3/uL Nucleated RBC % (auto) 0.0 (0.0-0.2) /100WBC Sodium 144 (135-145) mmol/L Potassium 5.0 (3.3-5.1) mmol/L Chloride 109 H (96-108) mmol/L Carbon Dioxide 26 (22-29) mmol/L Anion Gap 14 (12-20) BUN 23 H (9-16) mg/dL Creatinine 0.86 (0.5-1.4) mg/dL Estim Creat Clear Calc 52.2 Estimated GFR > 60 Random Glucose 107 (60-115) mg/dL Calcium 8.5 D (8.4-10.2) mg/dL Magnesium 2.2 (1.6-2.6) mg/dL Total Bilirubin 0.4 (0.0-1.0) mg/dL Direct Bilirubin < 0.2 (0.0-0.5) mg/dL AST 13 (5-31) U/L ALT 8 (0-31) U/L Alkaline Phosphatase 66 (39-117) U/L Troponin I High Sens (<3.5-17.0) ng/L Total Protein 7.0 (6.5-8.0) g/dL Albumin 4.1 (3.5-5.0) g/dL Urine Color YELLOW Urine Appearance CLEAR Urine pH 5.5 (5.0-8.0) Ur Specific [place] 1.010 (1.005-1.025) Urine Protein NEG (NEG-TRACE) MG/DL Urine Glucose (UA) NEG (NEG) MG/DL Urine Ketones NEG (NEG) MG/DL Urine Blood NEG (NEG) Urine Nitrite NEG (NEG) Ur Leukocyte Esterase 1+ H (NEG) Urine RBC 0 (0) /HPF Urine WBC 5-9 H (0-4) /HPF Ur Squamous Epith Cells TRACE /LPF Urine Bacteria TRACE /LPF 06/24/21 Range/Units 18:47 WBC (4.8-10.8) X10*3/uL RBC (4.20-5.50) X10*6/uL Hgb (12.0-16.0) g/dl Hct (37-47) % MCV (80-98) fL MCH (27.0-33.0) pg MCHC (31.0-35.0) g/dl RDW (11.0-16.0) % Plt Count (160-400) X10*3/uL MPV (9.4-12.3) fL Immature Gran % (Auto) (0.0-0.4) % Neut % (Auto) (45-73) % Lymph % (Auto) (20-40) % Carson % (Auto) (2-11) % Eos % (Auto) (0-4) % Baso % (Auto) (0-2) % Lymph # (Auto) (1.2-4.9) X10*3/uL Carson # (Auto) (0.1-1.2) X10*3/uL Eos # (Auto) (0.0-0.4) X10*3/uL Baso # (Auto) (0.0-0.2) X10*3/uL Abs Immat Gran (auto) (0.00-0.03) X10*3/uL Absolute Neuts (auto) (2.0-8.3) X10*3/uL Absolute Nucleated RBC (0.0-0.012) X10*3/uL Nucleated RBC % (auto) (0.0-0.2) /100WBC Sodium (135-145) mmol/L Potassium (3.3-5.1) mmol/L Chloride (96-108) mmol/L Carbon Dioxide (22-29) mmol/L Anion Gap (12-20) BUN (9-16) mg/dL Creatinine (0.5-1.4) mg/dL Estim Creat Clear Calc Estimated GFR Random Glucose (60-115) mg/dL Calcium (8.4-10.2) mg/dL Magnesium (1.6-2.6) mg/dL Total Bilirubin (0.0-1.0) mg/dL Direct Bilirubin (0.0-0.5) mg/dL AST (5-31) U/L ALT (0-31) U/L Alkaline Phosphatase (39-117) U/L Troponin I High Sens < 3.5 (<3.5-17.0) ng/L Total Protein (6.5-8.0) g/dL Albumin (3.5-5.0) g/dL Urine Color Urine Appearance Urine pH (5.0-8.0) Ur Specific [place] (1.005-1.025) Urine Protein (NEG-TRACE) MG/DL Urine Glucose (UA) (NEG) MG/DL Urine Ketones (NEG) MG/DL Urine Blood (NEG) Urine Nitrite (NEG) Ur Leukocyte Esterase (NEG) Urine RBC (0) /HPF Urine WBC (0-4) /HPF Ur Squamous Epith Cells /LPF Urine Bacteria /LPF <RAVINDER Madrigal - Last Filed: 06/24/21 21:07> Lab Results 06/24/21 06/24/21 06/24/21 Range/Units 18:32 18:47 18:47 WBC 7.2 (4.8-10.8) X10*3/uL RBC 3.67 L (4.20-5.50) X10*6/uL Hgb 11.3 L (12.0-16.0) g/dl Hct 35.2 L (37-47) % MCV 95.9 (80-98) fL MCH 30.8 (27.0-33.0) pg MCHC 32.1 (31.0-35.0) g/dl RDW 13.2 (11.0-16.0) % Plt Count 222 (160-400) X10*3/uL MPV 10.5 (9.4-12.3) fL Immature Gran % (Auto) 0.4 (0.0-0.4) % Neut % (Auto) 53.9 (45-73) % Lymph % (Auto) 34.9 (20-40) % Carson % (Auto) 9.4 (2-11) % Eos % (Auto) 1.1 (0-4) % Baso % (Auto) 0.3 (0-2) % Lymph # (Auto) 2.5 (1.2-4.9) X10*3/uL [place] # (Auto) 0.7 (0.1-1.2) X10*3/uL Eos # (Auto) 0.1 (0.0-0.4) X10*3/uL Baso # (Auto) 0.0 (0.0-0.2) X10*3/uL Abs Immat Gran (auto) 0.03 (0.00-0.03) X10*3/uL Absolute Neuts (auto) 3.9 (2.0-8.3) X10*3/uL Absolute Nucleated RBC 0.000 (0.0-0.012) X10*3/uL Nucleated RBC % (auto) 0.0 (0.0-0.2) /100WBC Sodium 144 (135-145) mmol/L Potassium 5.0 (3.3-5.1) mmol/L Chloride 109 H (96-108) mmol/L Carbon Dioxide 26 (22-29) mmol/L Anion Gap 14 (12-20) BUN 23 H (9-16) mg/dL Creatinine 0.86 (0.5-1.4) mg/dL Estim Creat Clear Calc 52.2 Estimated GFR > 60 Random Glucose 107 (60-115) mg/dL Calcium 8.5 D (8.4-10.2) mg/dL Magnesium 2.2 (1.6-2.6) mg/dL Total Bilirubin 0.4 (0.0-1.0) mg/dL Direct Bilirubin < 0.2 (0.0-0.5) mg/dL AST 13 (5-31) U/L ALT 8 (0-31) U/L Alkaline Phosphatase 66 (39-117) U/L Troponin I High Sens (<3.5-17.0) ng/L Total Protein 7.0 (6.5-8.0) g/dL Albumin 4.1 (3.5-5.0) g/dL Urine Color YELLOW Urine Appearance CLEAR Urine pH 5.5 (5.0-8.0) Ur Specific [place] 1.010 (1.005-1.025) Urine Protein NEG (NEG-TRACE) MG/DL Urine Glucose (UA) NEG (NEG) MG/DL Urine Ketones NEG (NEG) MG/DL Urine Blood NEG (NEG) Urine Nitrite NEG (NEG) Ur Leukocyte Esterase 1+ H (NEG) Urine RBC 0 (0) /HPF Urine WBC 5-9 H (0-4) /HPF Ur Squamous Epith Cells TRACE /LPF Urine Bacteria TRACE /LPF 06/24/21 Range/Units 18:47 WBC (4.8-10.8) X10*3/uL RBC (4.20-5.50) X10*6/uL Hgb (12.0-16.0) g/dl Hct (37-47) % MCV (80-98) fL MCH (27.0-33.0) pg MCHC (31.0-35.0) g/dl RDW (11.0-16.0) % Plt Count (160-400) X10*3/uL MPV (9.4-12.3) fL Immature Gran % (Auto) (0.0-0.4) % Neut % (Auto) (45-73) % Lymph % (Auto) (20-40) % [place] % (Auto) (2-11) % Eos % (Auto) (0-4) % Baso % (Auto) (0-2) % Lymph # (Auto) (1.2-4.9) X10*3/uL [place] # (Auto) (0.1-1.2) X10*3/uL Eos # (Auto) (0.0-0.4) X10*3/uL Baso # (Auto) (0.0-0.2) X10*3/uL Abs Immat Gran (auto) (0.00-0.03) X10*3/uL Absolute Neuts (auto) (2.0-8.3) X10*3/uL Absolute Nucleated RBC (0.0-0.012) X10*3/uL Nucleated RBC % (auto) (0.0-0.2) /100WBC Sodium (135-145) mmol/L Potassium (3.3-5.1) mmol/L Chloride (96-108) mmol/L Carbon Dioxide (22-29) mmol/L Anion Gap (12-20) BUN (9-16) mg/dL Creatinine (0.5-1.4) mg/dL Estim Creat Clear Calc Estimated GFR Random Glucose (60-115) mg/dL Calcium (8.4-10.2) mg/dL Magnesium (1.6-2.6) mg/dL Total Bilirubin (0.0-1.0) mg/dL Direct Bilirubin (0.0-0.5) mg/dL AST (5-31) U/L ALT (0-31) U/L Alkaline Phosphatase (39-117) U/L Troponin I High Sens < 3.5 (<3.5-17.0) ng/L Total Protein (6.5-8.0) g/dL Albumin (3.5-5.0) g/dL Urine Color Urine Appearance Urine pH (5.0-8.0) Ur Specific [place] (1.005-1.025) Urine Protein (NEG-TRACE) MG/DL Urine Glucose (UA) (NEG) MG/DL Urine Ketones (NEG) MG/DL Urine Blood (NEG) Urine Nitrite (NEG) Ur Leukocyte Esterase (NEG) Urine RBC (0) /HPF Urine WBC (0-4) /HPF Ur Squamous Epith Cells /LPF Urine Bacteria /LPF <Rhiannon Cohen PA-C - Last Filed: 06/25/21 00:38> Discharge Plan Discharge Clinical Impression: UTI (urinary tract infection), Dizziness <RAVINDER Madrigal - Last Filed: 06/24/21 21:07> Instructions: Dizziness (ED), Urinary Tract Infection in Older Adults (ED) <RAVINDER Madrigal - Last Filed: 06/24/21 21:07> Additional Instructions: Your blood work was reassuring today in the emergency department You do have a urinary tract infection, Ceftin as an antibiotic, was please take as prescribed Meclizine will help with dizziness Please stay hydrated at home If her symptoms persist or worsen, dizziness becomes unbearable or constant, high fevers, abdominal pain, on unable to eat or drink please return to the ED Please follow-up with your doctor <RAVINDER Madrigal - Last Filed: 06/24/21 21:07> Prescriptions: New cefuroxime axetil 250 mg tablet 250 mg PO BID 7 Days Qty: 14 RF: 0 meclizine 25 mg tablet 25 mg PO TID PRN (Reason: dizziness) Qty: 14 RF: 0 No Action montelukast [Singulair] 10 mg tablet 10 mg PO DAILY 90 Days Qty: 90 RF: 3 loratadine 10 mg tablet 10 mg PO DAILY 90 Days Qty: 90 RF: 3 cholecalciferol (vitamin D3) 25 mcg (1,000 unit) capsule 1,000 unit PO DAILY 90 Days Qty: 90 RF: 3 simvastatin 20 mg tablet 20 mg PO QPM 90 Days Qty: 90 RF: 1 Multaq 400 mg tablet 400 mg PO BID 30 Days Qty: 60 RF: 5 Eliquis 5 mg tablet 5 mg PO BID Qty: 60 RF: 5 oxybutynin chloride 10 mg tablet extended release 24hr 10 mg PO DAILY Qty: 90 RF: 3 omeprazole 20 mg capsule,delayed release(DR/EC) 20 mg PO DAILY Qty: 90 RF: 1 docusate sodium [Colace] 100 mg Capsule 100 mg PO DAILY RF: 0 albuterol 90 mcg/actuation Aerosol 90 mcg INHALATION NEEDED PRN (Reason: Bronchospasm) RF: 0 loperamide [Imodium] 2 mg Capsule 2 mg PO Q6H PRN (Reason: Diarrhea) RF: 0 dicyclomine 10 mg capsule 1 cap PO TID RF: 0 ferrous sulfate 324 mg (65 mg iron) tablet,delayed release (DR/EC) 1 tab PO DAILY RF: 0 dicyclomine [Bentyl] 20 mg Tablet 20 mg PO BID RF: 0 meclizine 25 mg tablet 25 mg PO DAILY PRN (Reason: Dizziness) RF: 0 dicyclomine 20 mg tablet 20 mg PO QID PRN (Reason: Diarrhea) RF: 0 <RAVINDER Madrigal - Last Filed: 06/24/21 21:07> Referrals: Patti Crabtree MD [Primary Care Provider] - 2 days <RAVINDER Madrigal - Last Filed: 06/24/21 21:07>
[2021-06-24 18:43] LABS: Glucose Urine UA NEG (NEG); Leukocyte Esterase Urine 1+ (NEG); Nitrite Urine NEG (NEG); PH 5.5 (5.0-8.0); UACC Culture Trigger YES; Urine Blood NEG (NEG); Urine Ketones NEG (NEG); Urine Protein NEG (NEG-TRACE)
[2021-06-24 18:44] LABS: Appearance Urine CLEAR; Color Urine YELLOW
[2021-06-24] MEDS: 0.9 % Sodium Chloride 1,000 ML 999 ML IVCONT (18:45)
[2021-06-24] MEDS: Meclizine HCl 25 MG TABLET PO ×2 (18:45→23:16)
[2021-06-24] MEDS: ondansetron HCL 4 MG/2 ML VIAL IVPUSH (18:45)
[2021-06-24 18:54] LABS: MANUAL DIFF FLAG NO
[2021-06-24 18:55] LABS: Basophils Percent Auto 0.3 % (0-2); Eosinophils Absolute Auto 0.1 X10*3/uL (0.0-0.4); Eosinophils Percent Auto 1.1 % (0-4); Hematocrit 35.2 % (37-47); Hemoglobin 11.3 g/dl (12.0-16.0); Imm Gran Abs Auto 0.03 X10*3/uL (0.00-0.03); Imm Gran Pct Auto 0.4 % (0.0-0.4); Lymphocytes Absolute Auto 2.5 X10*3/uL (1.2-4.9); Lymphocytes Percent Auto 34.9 % (20-40); Mean Corpuscular HGB Conc 32.1 g/dl (31.0-35.0); Mean Corpuscular Hemoglobin 30.8 pg (27.0-33.0); Mean Corpuscular Volume 95.9 fL (80-98); Mean Platelet Volume 10.5 fL (9.4-12.3); Monocytes Absolute Auto 0.7 X10*3/uL (0.1-1.2); Monocytes Percent Auto 9.4 % (2-11); Neutrophils Absolute Auto 3.9 X10*3/uL (2.0-8.3); Neutrophils Percent Auto 53.9 % (45-73); Platelet Count 222 X10*3/uL (160-400); Red Blood Count 3.67 X10*6/uL (4.20-5.50); Red Cell Distribution Width 13.2 % (11.0-16.0); White Blood Count 7.2 X10*3/uL (4.8-10.8)
[2021-06-24 18:55] LABS: Bacteria Urine TRACE /LPF; RBC Urine 0 /HPF (0); Squamous Epithelial Cell Urine TRACE /LPF
[2021-06-24 19:23] LABS: Alanine Aminotransferase 8 U/L (0-31); Albumin Level 4.1 g/dL (3.5-5.0); Alkaline Phosphatase 66 U/L (39-117); Anion Gap 14 (12-20); Aspartate Amino Transferase 13 U/L (5-31); Bilirubin Direct < 0.2 mg/dL (0.0-0.5); Bilirubin Total 0.4 mg/dL (0.0-1.0); Blood Urea Nitrogen 23 mg/dL (9-16); Calcium 8.5 mg/dL (8.4-10.2); Carbon Dioxide 26 mmol/L (22-29); Chloride 109 mmol/L (96-108); Creatinine Clr Calc Pharmacy 52.2; Estimated Glomerular Filt Rate > 60; Glucose Random 107 mg/dL (60-115); Magnesium 2.2 mg/dL (1.6-2.6); Sodium 144 mmol/L (135-145)
[2021-06-24 19:33] LABS: Troponin-I High Sensitivity < 3.5 ng/L (<3.5-17.0)
[2021-06-24 20:08] VITALS: BP 117/66; PULSE 68
[2021-06-24 20:10] VITALS: BP 136/81; PULSE 70
[2021-06-24 20:11] VITALS: BP 134/73; PULSE 70
[2021-06-24 20:13] VITALS: BP 117/68; PULSE 72; RESP 16; TEMP 36.6; O2SAT 99
[2021-06-24] MEDS: cefTRIAXone sodium 1 GM in 0.9 % Sodium Chloride 50 ML IV (21:12)
[2021-06-24] MEDS: diphenhydrAMINE HCL 50 MG/ML VIAL 12.5 MG IVPUSH (21:12)
[2021-06-24] MEDS: LORazepam 2 MG/ML VIAL 1 MG IVPUSH (21:13)
--- NOTE | 2021-06-24 21:16 | PC.NURSE ---
PT MEDICATED PER MAR, FOOD AND DRINK PROVIDED PER REQUEST. OFFERS NO COMPLAINTS AT THIS TIME. AWAITING IMPROVEMENT IN SYMPTOMS AND MD REEVAL.
[2021-06-24 23:17] VITALS: BP 113/70; PULSE 75; RESP 14; TEMP 36.6; O2SAT 97
--- NOTE | 2021-06-25 00:41 | PC.NURSE ---
PT REPORTS FEELING BETTER, CLEARED FOR DC HOME. ATTEMPTED TO CALL CONTACT, NO ANSWER. VOICEMAIL LEFT.
== END 2021-06-25 07:44 | disposition home or self-care (01) ==
PROVIDERS: Physician Assistant; Emergency Provider Emergency Medicine; PCP Internal Medicine
DX: N39.0 Urinary tract infection, site not specified (principal); R42 Dizziness and giddiness; R53.83 Other fatigue; E11.9 Type 2 diabetes mellitus without complications; E78.5 Hyperlipidemia, unspecified; I48.91 Unspecified atrial fibrillation; Z79.02 Long term (current) use of antithrombotics/antiplatelets; Z79.899 Other long term (current) drug therapy; Z79.01 Long term (current) use of anticoagulants
CPT/HCPCS: 36415; 80048; 80076; 81001; 83735; 84484; 85025; 87086; 93005; 96361; 96365; 96375; 99284; J0696; J1200; J2060; J2405

== ENCOUNTER → 2021-07-01 13:15 | Outpatient (BNVA) | payer MEDICARE, MEDICAID, SELFPAY | PROVIDERS: PCP Internal Medicine; Referring Provider Internal Medicine; Visit Provider Physician Assistant ==

== ENCOUNTER 2021-08-26 21:50 | Emergency (ER) | payer MEDICARE, MEDICAID, SELFPAY ==
--- NOTE | ~2021-08-26 | XR_ITS ---
EXAMINATION: XR CHEST CLINICAL INFORMATION: Chest pain. COMPARISON: Chest radiograph dated from 03/16/2021. TECHNIQUE: AP view of the chest was obtained. FINDINGS: Normal appearance of the cardiomediastinal silhouette. Clear lungs. No pleural effusion or pneumothorax. No acute osseous findings. XR/XR chest 1V IMPRESSION: No acute cardiopulmonary findings.
[2021-08-26 21:56] VITALS: BP 148/75; PULSE 78; RESP 20; TEMP 36.6; O2SAT 97; BMI 31.3
--- NOTE | 2021-08-26 22:06 | ECG_ITS ---
Test Reason : cp Blood Pressure : / mmHG Vent. Rate : 076 BPM Atrial Rate : 076 BPM P-R Int : 206 ms QRS Dur : 066 ms QT Int : 390 ms P-R-T Axes : 097 021 065 degrees QTc Int : 438 ms Sinus rhythm with sinus arrhythmia with occasional Premature ventricular complexes RSR' or QR pattern in V1 suggests right ventricular conduction delay Borderline ECG When compared with ECG of 24-JUN-2021 18:25, No significant change was found Referred By: Lacey Rubin Electronically Signed By:EDUARDO LARKIN MD
--- NOTE | 2021-08-26 22:13 | ED.CHESTPAIN ---
HPI - Chest Pain General Chief Complaint: Chest Pain Stated Complaint: chest pain Time Seen by Provider: 08/26/21 21:53 Source: patient and EMS Mode of arrival: EMS History of Present Illness HPI narrative: 61-year-old female with a past medical history of anemia, arthritis, asthma, diabetes, GERD, hyperlipidemia, IBS, carcinoid tumor, AFib on AC, presenting to the ED complaining of chest tightness waking her from sleep a couple hours ago with associated nausea. Admits CP mildly improved at present. Admits to similar symptoms in the past. Denies SOB, numbness, tingling, vomiting, abdominal pain, LE edema MD complaint: chest heaviness Related Data Home Medications Medication Instructions Recorded Confirmed albuterol 90 mcg/actuation aerosol 90 mcg INHALATION NEEDED PRN 08/11/20 07/01/21 inhaler loperamide 2 mg capsule 2 mg PO Q6H PRN 08/11/20 06/30/21 meclizine 25 mg tablet 25 mg PO DAILY PRN 09/08/20 07/01/21 dicyclomine 10 mg capsule 1 cap PO TID 12/15/20 06/30/21 ferrous sulfate 324 mg (65 mg 1 tab PO DAILY 12/15/20 07/01/21 iron) tablet,delayed release dicyclomine 20 mg tablet 20 mg PO BID 06/15/21 06/30/21 fluticasone propionate 50 1 spray INTRANASAL DAILY 07/01/21 07/13/21 mcg/actuation nasal spray,suspension Previous Rx's Medication Instructions Recorded loratadine 10 mg tablet 10 mg PO DAILY 90 Days #90 tab 08/25/20 cholecalciferol (vitamin D3) 25 1,000 unit PO DAILY 90 Days #90 cap 11/20/20 mcg (1,000 unit) capsule dronedarone 400 mg tablet (Multaq) 400 mg PO BID 30 Days #60 tab 03/03/21 apixaban 5 mg tablet (Eliquis) 5 mg PO BID #60 tab 03/22/21 oxybutynin chloride 10 mg 10 mg PO DAILY #90 tab 03/23/21 tablet,extended release 24 hr omeprazole 20 mg capsule,delayed 20 mg PO DAILY #90 cap 05/18/21 release docusate sodium 100 mg capsule 100 mg PO DAILY 30 Days #30 cap 07/01/21 (Colace) sennosides 8.6 mg-docusate sodium 2 tab-cap PO BEDTIME 14 Days #28 07/01/21 50 mg tablet (Senna with Docusate tab Sodium) montelukast 10 mg tablet 10 mg PO DAILY 90 Days #90 tab 08/18/21 (Singulair) simvastatin 20 mg tablet 20 mg PO QPM 90 Days #90 tab 08/18/21 Allergies Allergy/AdvReac Type Severity Reaction Status Date / Time Erythromycin Allergy Unknown GI upset, Verified 08/26/21 22:01 increases pain erythromycin base AdvReac Intermediate GI UPSET Verified 08/26/21 22:01 [Erythromycin Base] Motrin AdvReac Unknown GI Upset, Verified 08/26/21 22:01 increases pain Chocolate Allergy Mild RASH Uncoded 08/26/21 22:01 Environmental Allergy Unknown Unknown Uncoded 08/26/21 22:01 Review of Systems Review of Systems: Constitutional: No Fever, No Fatigue, No Malaise ENT/Mouth: No Ear Pain, No Nasal Congestion, No Hoarseness, No sore throat Eyes: No Eye Pain, No Swelling, No Redness, No Discharge Cardiovascular: + Chest Pain, No SOB, No Dyspnea on Exertion, No Edema, No Palpitations Respiratory: No Cough, No Sputum, No Dyspnea Gastrointestinal: + Nausea, No Vomiting, No Diarrhea, No Constipation, No Abdominal pain Genitourinary:No Dysuria, No Urinary Frequency, No Hematuria Musculoskeletal: No joint pain, No Myalgias, No Joint Swelling Skin: No Skin Lesions, No rash Neuro: No Weakness, No Numbness, No Paresthesias, No Dizziness, No Headache Yes all other systems are reviewed and are negative [facility] Past Medical History Attestation statement: The following information was validated with the patient. Medical History (Updated 08/27/21 @ 00:12 by RAVINDER Madrigal) Afib Anemia Arthritis Asthma Colon polyp Diabetes Environmental allergies Gastric polyp GERD (gastroesophageal reflux disease) Hyperlipemia IBS (irritable bowel syndrome) Lipid disorder Neuroendocrine neoplasm of gastrointestinal tract Overactive bladder Paroxysmal atrial fibrillation Vitamin D deficiency Surgical History History of colonoscopy History of esophagogastroduodenoscopy Family History Family History Father Afib Pneumonia Brother Afib Heart disease Brother Heart disease Mother Unknown family medical history Social History Social History Housing: Assisted Living Facility Housing Other:: [facility] Alcohol intake: never Patient Tobacco Use Status: Never used Tobacco Advance Directives: No Advance Directives Information Provided: No Patient : No Physical Exam Vital Signs: Vital Signs: Last Vital Signs Temp 98 F 08/26/21 21:56 Pulse 70 08/26/21 23:55 Resp 16 08/26/21 23:55 BP 140/74 H 08/26/21 23:55 Pulse Ox 97 08/26/21 21:56 Body Mass Index 31.3 Const: General: cooperative, healthy appearing and no acute distress Orientation/consciousness: patient oriented x3 Limitations: no limitations HENMT: Head: Yes normal to inspection Ears: hearing grossly normal bilaterally General nose exam: Normal external nose present Face and sinus: Yes normal facial exam Eyes: General: appearance normal, both eyes and all related structures EOM: EOMs intact bilaterally Neck: Neck: Yes normal visual inspection and Yes no meningeal signs Resp: Effort & Inspection: normal respiratory effort Auscultation: clear to auscultation bilaterally, no rales, no rhonchi and no wheezes Cardio: Rate: regular rate Heart sounds: S1 normal heart sound present and S2 normal heart sound present GI: Inspection: Yes normal to inspection Palpation (GI): Soft to palpation, nontender, no guarding and not rigid Skin: Rashes: no rashes Wounds: no wounds Neuro: General: patient oriented x3 and no meningeal signs Gait exam (Neuro): Normal gait present Extrem: General: Yes normal to inspection, Yes no pedal edema and Yes no calf tenderness Course Course Course Narrative: -0009--no leukocytosis, H&H stable, initial troponin negative > will obtain 3 hour repeat at 0130 XR chest 1V IMPRESSION: No acute cardiopulmonary findings -ED care transferred to Dr. Rodarte pending repeat troponin and anticipated DC MDM - Chest Pain MDM Narrative Medical decision making narrative: 61-year-old female with a past medical history of anemia, arthritis, asthma, diabetes, GERD, hyperlipidemia, IBS, carcinoid tumor, AFib on AC, presenting to the ED complaining of chest tightness waking her from sleep a couple hours ago with associated nausea. On exam vital signs stable, NAD, nontoxic appearing, lungs CTA, no pedal edema/calf tenderness. Concern for ACS. Lower concern for pneumonia, PE, CHF Plan: EKG, labs, CXR, troponin x2 Medical Records Data Attestation: I reviewed the patient's medical records. Lab Data Attestation: I reviewed the patient's lab results. Result diagrams: 08/26/21 22:30 08/26/21 22:30 Labs: Lab Results 08/26/21 08/26/21 08/26/21 Range/Units 22:30 22:30 22:30 WBC 7.0 (4.8-10.8) X10*3/uL RBC 3.55 L (4.20-5.50) X10*6/uL Hgb 11.1 L (12.0-16.0) g/dl Hct 33.9 L (37-47) % MCV 95.5 (80-98) fL MCH 31.3 (27.0-33.0) pg MCHC 32.7 (31.0-35.0) g/dl RDW 14.3 (11.0-16.0) % Plt Count 276 (160-400) X10*3/uL MPV 10.1 (9.4-12.3) fL Immature Gran % (Auto) 0.3 (0.0-0.4) % Neut % (Auto) 57.8 (45-73) % Lymph % (Auto) 30.7 (20-40) % [place] % (Auto) 9.2 (2-11) % Eos % (Auto) 1.7 (0-4) % Baso % (Auto) 0.3 (0-2) % Lymph # (Auto) 2.2 (1.2-4.9) X10*3/uL [place] # (Auto) 0.7 (0.1-1.2) X10*3/uL Eos # (Auto) 0.1 (0.0-0.4) X10*3/uL Baso # (Auto) 0.0 (0.0-0.2) X10*3/uL Abs Immat Gran (auto) 0.02 (0.00-0.03) X10*3/uL Absolute Neuts (auto) 4.1 (2.0-8.3) X10*3/uL Absolute Nucleated RBC 0.000 (0.0-0.012) X10*3/uL Nucleated RBC % (auto) 0.0 (0.0-0.2) /100WBC Sodium 142 (135-145) mmol/L Potassium 4.5 (3.3-5.1) mmol/L Chloride 110 H (96-108) mmol/L Carbon Dioxide 23 (22-29) mmol/L Anion Gap 14 (12-20) BUN 19 H (9-16) mg/dL Creatinine 0.85 (0.5-1.4) mg/dL Estim Creat Clear Calc 56.0 Estimated GFR > 60 Random Glucose 107 (60-115) mg/dL Calcium 8.3 L (8.4-10.2) mg/dL Magnesium 1.9 (1.6-2.6) mg/dL Total Bilirubin 0.2 (0.0-1.0) mg/dL Direct Bilirubin < 0.2 (0.0-0.5) mg/dL AST 16 D (5-31) U/L ALT 12 (0-31) U/L Alkaline Phosphatase 67 (39-117) U/L Troponin I High Sens < 3.5 (<3.5-17.0) ng/L B-Natriuretic Peptide 209 H (<100) pg/mL Total Protein 6.8 (6.5-8.0) g/dL Albumin 4.0 (3.5-5.0) g/dL ECG Data ECG #1: Attestation: I personally reviewed and interpreted this ECG as follows: ECG interpretation date: 08/27/21 ECG interpretation time: 22:20 Prior ECG tracings: available for review Interpretation: EKG normal sinus rhythm with sinus arrhythmia. Occasional PVCs. Rate of 77. QTC 438. No STEMI/nonischemic Discharge Plan Discharge Clinical Impression: Chest discomfort Instructions: Chest Pain (ED) Additional Instructions: Your blood work and chest x-ray were reassuring today in the ED Please follow-up with her doctor, and your contracts representative If your symptoms persist or worsen, chest pain becomes more constant, you develop shortness of breath, fever, or chills please return to the ED Prescriptions: No Action loratadine 10 mg tablet 10 mg PO DAILY 90 Days Qty: 90 RF: 3 cholecalciferol (vitamin D3) 25 mcg (1,000 unit) capsule 1,000 unit PO DAILY 90 Days Qty: 90 RF: 3 Multaq 400 mg tablet 400 mg PO BID 30 Days Qty: 60 RF: 5 Eliquis 5 mg tablet 5 mg PO BID Qty: 60 RF: 5 oxybutynin chloride 10 mg tablet extended release 24hr 10 mg PO DAILY Qty: 90 RF: 3 omeprazole 20 mg capsule,delayed release(DR/EC) 20 mg PO DAILY Qty: 90 RF: 1 montelukast [Singulair] 10 mg tablet 10 mg PO DAILY 90 Days Qty: 90 RF: 3 simvastatin 20 mg tablet 20 mg PO QPM 90 Days Qty: 90 RF: 1 albuterol 90 mcg/actuation Aerosol 90 mcg INHALATION NEEDED PRN (Reason: Bronchospasm) RF: 0 loperamide [Imodium] 2 mg Capsule 2 mg PO Q6H PRN (Reason: Diarrhea) RF: 0 dicyclomine 10 mg capsule 1 cap PO TID RF: 0 ferrous sulfate 324 mg (65 mg iron) tablet,delayed release (DR/EC) 1 tab PO DAILY RF: 0 dicyclomine [Bentyl] 20 mg Tablet 20 mg PO BID RF: 0 meclizine 25 mg tablet 25 mg PO DAILY PRN (Reason: Dizziness) RF: 0 fluticasone propionate 50 mcg/actuation spray,suspension 1 spray intranasal DAILY RF: 0 sennosides-docusate sodium [Senna with Docusate Sodium] 8.6-50 mg tablet 2 tab-cap PO BEDTIME 14 Days Qty: 28 RF: 0 docusate sodium [Colace] 100 mg capsule 100 mg PO DAILY 30 Days Qty: 30 RF: 1 Referrals: Destini Marie, PARLOR MAID-C [Nurse Practitioner] - 2 days Physician,Humza J [Primary Care Provider] - 2 days
[2021-08-26 22:36] LABS: Basophils Percent Auto 0.3 % (0-2); Eosinophils Absolute Auto 0.1 X10*3/uL (0.0-0.4); Eosinophils Percent Auto 1.7 % (0-4); Hematocrit 33.9 % (37-47); Hemoglobin 11.1 g/dl (12.0-16.0); Imm Gran Abs Auto 0.02 X10*3/uL (0.00-0.03); Imm Gran Pct Auto 0.3 % (0.0-0.4); Lymphocytes Absolute Auto 2.2 X10*3/uL (1.2-4.9); Lymphocytes Percent Auto 30.7 % (20-40); MANUAL DIFF FLAG NO; Mean Corpuscular HGB Conc 32.7 g/dl (31.0-35.0); Mean Corpuscular Hemoglobin 31.3 pg (27.0-33.0); Mean Corpuscular Volume 95.5 fL (80-98); Mean Platelet Volume 10.1 fL (9.4-12.3); Monocytes Absolute Auto 0.7 X10*3/uL (0.1-1.2); Monocytes Percent Auto 9.2 % (2-11); Neutrophils Absolute Auto 4.1 X10*3/uL (2.0-8.3); Neutrophils Percent Auto 57.8 % (45-73); Platelet Count 276 X10*3/uL (160-400); Red Blood Count 3.55 X10*6/uL (4.20-5.50); Red Cell Distribution Width 14.3 % (11.0-16.0)
[2021-08-26 22:52] LABS: Alanine Aminotransferase 12 U/L (0-31); Alkaline Phosphatase 67 U/L (39-117); Anion Gap 14 (12-20); Aspartate Amino Transferase 16 U/L (5-31); Bilirubin Direct < 0.2 mg/dL (0.0-0.5); Bilirubin Total 0.2 mg/dL (0.0-1.0); Blood Urea Nitrogen 19 mg/dL (9-16); Calcium 8.3 mg/dL (8.4-10.2); Carbon Dioxide 23 mmol/L (22-29); Chloride 110 mmol/L (96-108); Estimated Glomerular Filt Rate > 60; Glucose Random 107 mg/dL (60-115); Magnesium 1.9 mg/dL (1.6-2.6); Potassium 4.5 mmol/L (3.3-5.1); Sodium 142 mmol/L (135-145); Total Protein 6.8 g/dL (6.5-8.0)
[2021-08-26 22:58] LABS: B Type Natriuretic Peptide 209 pg/mL (<100); Troponin-I High Sensitivity < 3.5 ng/L (<3.5-17.0)
--- NOTE | 2021-08-26 23:15 | PC.NURSE ---
Report taken from mellissa Kearns RN resuming care. Pt resting in bed in POC, lights dim per request. Pt aware of plan to repeat Troponin @ 0130.
[2021-08-26 23:55] VITALS: BP 140/74; PULSE 70; RESP 16
[2021-08-27 01:34] VITALS: BP 123/71; PULSE 62; RESP 16; O2SAT 99
--- NOTE | 2021-08-27 01:42 | PC.NURSE ---
Hospitalist at bedside for primary eval.
--- NOTE | 2021-08-27 01:48 | PC.NURSE ---
Repeat Troponin obtained and sent by animal care technician. Plan to await results prior to discharge.
[2021-08-27 02:08] LABS: Troponin-I High Sensitivity < 3.5 ng/L (<3.5-17.0)
--- NOTE | 2021-08-27 02:53 | PC.NURSE ---
Discharge paperwork ready. Awaiting EMS transport home.
[2021-08-27 03:28] VITALS: BP 120/84; PULSE 64; RESP 16; O2SAT 98
--- NOTE | 2021-08-27 03:28 | PC.NURSE ---
EMS at bedside for transportation home.
== END 2021-08-27 03:32 | disposition home or self-care (01) ==
PROVIDERS: Physician Assistant; Emergency Provider Emergency Medicine
DX: R07.89 Other chest pain (principal); E11.9 Type 2 diabetes mellitus without complications; E78.5 Hyperlipidemia, unspecified; I48.0 Paroxysmal atrial fibrillation; Z79.01 Long term (current) use of anticoagulants
CPT/HCPCS: 36415; 71045; 80048; 80076; 83735; 83880; 84484; 85025; 93005; 99283; 99284

== ENCOUNTER → 2021-09-09 14:32 | Outpatient (BNVA) | payer MEDICARE, MEDICAID, SELFPAY | PROVIDERS: Referring Provider Internal Medicine; Visit Provider Internal Medicine Cardiovascular Disease | DX: I95.1 Orthostatic hypotension (principal); I48.0 Paroxysmal atrial fibrillation; R07.89 Other chest pain; R42 Dizziness and giddiness | CPT/HCPCS: 99212 ==

== ENCOUNTER → 2021-09-28 13:53 | Outpatient (BNVA) | payer MEDICARE, MEDICAID, SELFPAY | PROVIDERS: PCP Internal Medicine; Referring Provider Internal Medicine; Visit Provider Nurse Practitioner Family | DX: I95.1 Orthostatic hypotension (principal); I48.0 Paroxysmal atrial fibrillation; R07.89 Other chest pain; R42 Dizziness and giddiness | CPT/HCPCS: 99212 ==

== ENCOUNTER → 2021-10-05 10:30 | Outpatient (REF) | payer MEDICARE, MEDICAID, SELFPAY ==
--- NOTE | ~2021-10-05 | NM_ITS ---
Lexiscan Myocardial perfusion study Indication: Abnormal EKG, chest pain, assess for ischemia Technique: The patient was brought in for a Lexiscan perfusion study on 10/05/2021 and was injected 0.4 mg of Lexiscan intravenously. Within a minute of this injection 25 mCi of sestamibi was given intravenously. Images were obtained using the SPECT gamma camera interlaced with the gating device. Images were obtained in supine position. Resting perfusion study was performed on 10/06/2021. Patient was administered 25 mCi of sestamibi intravenously at rest. Images were then obtained in supine position. Total DLP 102mGy-cm. Images were processed with the software and compared side to side in short axis, horizontal long axis and vertical long axis views. Findings: Raw acquisition reviewed. Arms by the patient's side. The stress perfusion study showed mildly diminished tracer uptake in the distal part of anterolateral wall, lateral wall. With CT attenuation correction, there is improvement in the lateral aspect but there is perfusion defect in the distal part of anterior wall. The gated study shows normal LV systolic function with calculated LVEF of 66%. LV cavity is normal in size. The gated study shows normal wall thickening and contraction of segments. Resting study shows no significant perfusion abnormality. With CT attenuation correction, there is diminished uptake in the distal part of anterior wall. Gating at rest reveals normal wall motion with ejection fraction at > 70%. The findings are consistent with slight reversible defect in the distal part of anterolateral wall, lateral wall. NM/NM leroy perf SPECT rest & str Impression: 1. Myocardial perfusion imaging study shows mild reversible defect in the distal part of lateral wall and anterolateral wall. However, normal wall thickening and contractility. Hence likely artifactual. Less likely to be from ischemia. 2. Gated LVEF is 66% during stress and > 70% during rest. 3. Transient ischemic dilatation not present. EKG component of the test reported separately.
--- NOTE | 2021-10-05 10:33 | CA_ITS ---
Acquisition Time: 2021-10-05 11:30:44 Total Exercise Time: 00:02:00 Test Indications: Abnormal ECG Medications: ALBUTEROL ELIQUIS DOXYCYCLINE MULTAQ FLONASE LORATADINE Protocol: LEXISCAN Max HR: 122 BPM 77% of Pred: 158 BPM Max BP: 134/060 mmHG Max Work Load: 1.0 METS Pharmacological stress test with Lexiscan injection, while sitting and kicking her legs, with mild mid chest discomfort at baseline and no change during test, with isolated PVC and occassional ventricular cuplets, with normotensive response to injection, with nondiagnostic EKG for ischemia. At 4 min 30 sec recovery she reported lightheadedness and headache and was treated with Aminophylline 75mg IVP to reverse Lexiscan with resolution of symptoms. Nuclear images pending. Test reiewed with Dr Gomez. Referred By: Destini Marie Overread By: DESTINI MARIE
== END ==
LOC: HO.CARD 10:30
PROVIDERS: Visit Provider Nurse Practitioner Family
DX: R07.89 Other chest pain (principal); I48.0 Paroxysmal atrial fibrillation
CPT/HCPCS: 78452; 93017; A9500; J0280; J2785

== ENCOUNTER 2021-12-10 12:39 | Outpatient (REF) | payer MEDICARE, MEDICAID, SELFPAY ==
--- NOTE | ~2021-12-10 | MM_ITS ---
EXAMINATION: MM SCREENING DIGITAL BREAST TOMOSYNTHESIS, BILATERAL CLINICAL INFORMATION: Screening. Asymptomatic. The lifetime risk of breast cancer based on the Tyrer-Cuzick Model is 8%. COMPARISON: Mammography: 08/18/2021, 11/26/2019, 10/05/2018 TECHNIQUE: Digital breast tomosynthesis is performed in both the craniocaudal and mediolateral oblique views along with computer-aided detection (CAD). Synthesized 2D images are generated from the tomosynthesis. FINDINGS: There are scattered areas of fibroglandular density (ACR BI-RADS breast composition Category b). There are no significant masses, abnormal calcifications, or other abnormalities. Parenchymal pattern is similar to prior studies. There is no developing density or architectural abnormality. The axilla and skin contours are unremarkable. No significant changes. MM/MM tomosynthesis screening BI IMPRESSION: No mammographic evidence of malignancy. ASSESSMENT: BI-RADS 2: Benign RECOMMENDATION: Routine annual mammography screening. This patient's information was entered into a reminder system with a target due date for their next mammogram.
== END 2021-12-10 12:40 | disposition home or self-care (01) ==
LOC: HO.MAMMO 12:39
PROVIDERS: PCP Internal Medicine; Visit Provider Internal Medicine
DX: Z12.31 Encounter for screening mammogram for malignant neoplasm of breast (principal)
CPT/HCPCS: 77063; 77067

== ENCOUNTER → 2021-12-14 13:50 | Outpatient (BNVA) | payer MEDICARE, MEDICAID, SELFPAY | PROVIDERS: PCP Internal Medicine; Referring Provider Internal Medicine; Visit Provider Internal Medicine Cardiovascular Disease | DX: I48.0 Paroxysmal atrial fibrillation (principal) | CPT/HCPCS: 93005; 99212 ==

== ENCOUNTER 2021-12-23 13:33 | Outpatient (REF) | payer MEDICARE, MEDICAID, SELFPAY ==
--- NOTE | ~2021-12-23 | CT_ITS ---
EXAMINATION: CT ABDOMEN AND PELVIS WITH CONTRAST CLINICAL INFORMATION: Neuroendocrine tumor. Assess response to treatment. COMPARISON: Previous CT of the abdomen and pelvis 07/21/2020. TECHNIQUE: Multidetector volumetric images were obtained from the superior aspect of the liver through the pubic symphysis following administration 85 mL of Omnipaque 350 intravenous contrast. Sagittal and coronal reformatted images were obtained on the technologist's workstation. Oral contrast: Yes This CT examination was performed using dose optimization techniques as appropriate, variously including the following: *Automated exposure control. *Adjustment of mA and/or kV according to patient size (this includes techniques or standardized protocols for targeted exams where dose is matched to indication/reason for exam; i.e. extremities or head). *Use of iterative reconstruction technique. DLP: 311 mGy-cm FINDINGS: LUNG BASES: The visualized lung bases are unremarkable. LIVER, GALLBLADDER, AND BILIARY TREE: The liver is normal in size, shape, and attenuation. No focal hepatic lesion or biliary ductal dilatation is present. The gallbladder is unremarkable with no evidence of radiopaque gallstones, gallbladder wall thickening, or obvious pericholecystic inflammatory changes. PANCREAS: Unremarkable. SPLEEN: Unremarkable. ADRENAL GLANDS: Unremarkable. KIDNEYS AND URETERS: The kidneys are normal in size, shape, and attenuation. No hydronephrosis, hydroureter, or calculi seen. No perinephric stranding. BLADDER: Not optimally distended. GASTROINTESTINAL TRACT: Post right colectomy. The small and large bowel are otherwise unremarkable. Stable soft tissue around the SMA and SMV and its branches in the small bowel mesentery. ABDOMINAL WALL: Subcutaneous nodules in the buttock are stable probably representing injection sites. LYMPH NODES: Normal. VASCULAR: Unremarkable. PELVIC VISCERA: OSSEOUS STRUCTURES: Degenerative changes of the spine. CT/CT abdomen pelvis w con IMPRESSION: Postsurgical changes following right hemicolectomy. Stable abnormal soft tissue in the small bowel mesentery surrounding the SMA and SMV and its branches. Fleischner guidelines were followed.
[2021-12-23] MEDS: iohexoL 350 MG/ML 100 ML INFUS..BTL IV (14:28)
== END 2021-12-23 13:34 | disposition home or self-care (01) ==
LOC: HO.CT 13:33
PROVIDERS: PCP Internal Medicine; Visit Provider Internal Medicine
DX: D3A.8 Other benign 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 tumors (principal); Z90.49 Acquired absence of other specified parts of digestive tract
CPT/HCPCS: 74177; Q9967

== ENCOUNTER → 2021-12-30 13:49 | Outpatient (BNVA) | payer MEDICARE, MEDICAID, SELFPAY | PROVIDERS: PCP Internal Medicine; Referring Provider Internal Medicine; Visit Provider Physician Assistant | DX: K21.9 Gastro-esophageal reflux disease without esophagitis (principal); K59.00 Constipation, unspecified; C7B.00 Secondary carcinoid tumors, unspecified site | CPT/HCPCS: 99212 ==

== ENCOUNTER → 2022-03-17 14:59 | Outpatient (BNVA) | payer MEDICARE, MEDICAID, SELFPAY | PROVIDERS: PCP Internal Medicine; Referring Provider Internal Medicine; Visit Provider Internal Medicine Cardiovascular Disease | DX: Z13.89 Encounter for screening for other disorder (principal) | CPT/HCPCS: 93005 ==

== ENCOUNTER → 2022-03-24 12:39 | Outpatient (BNVA) | payer MEDICARE, MEDICAID, SELFPAY | PROVIDERS: PCP Internal Medicine; Visit Provider Physician Assistant | DX: K59.00 Constipation, unspecified (principal); K21.9 Gastro-esophageal reflux disease without esophagitis; D3A.8 Other benign 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 tumors | CPT/HCPCS: 99212 ==

== ENCOUNTER → 2022-06-21 14:45 | Outpatient (BNVA) | payer MEDICARE, MEDICAID, SELFPAY | PROVIDERS: PCP Internal Medicine; Referring Provider Internal Medicine; Visit Provider Internal Medicine Cardiovascular Disease | DX: R94.31 Abnormal electrocardiogram [ECG] [EKG] (principal) | CPT/HCPCS: 93005 ==

== ENCOUNTER → 2022-07-14 12:33 | Outpatient (BNVA) | payer MEDICARE, MEDICAID, SELFPAY | PROVIDERS: PCP Internal Medicine; Referring Provider Internal Medicine; Visit Provider Physician Assistant | DX: Z01.818 Encounter for other preprocedural examination (principal); C7B.00 Secondary carcinoid tumors, unspecified site; K58.1 Irritable bowel syndrome with constipation | CPT/HCPCS: 99212 ==

== ENCOUNTER 2022-09-17 20:28 | Inpatient (IN) | payer MEDICARE, MEDICAID, SELFPAY ==
--- NOTE | ~2022-09-17 | XR_ITS ---
EXAMINATION: XR ABDOMEN KUB CLINICAL INDICATION: Incorrect OR count COMPARISON: None TECHNIQUE: AP view of the abdomen. FINDINGS: There are no unexpected radiopaque foreign bodies. Surgical clips at the mid abdomen. Enteric tube in distal stomach. Surgical sutures peripheral at the right midabdomen. Mild gaseous distention of bowel loops. Nonobstructive bowel pattern. Multilevel degenerative spondylosis lumbar spine. Degenerative joint disease of hips. XR/XR abdomen 1V IMPRESSION: 1. No unexpected radiopaque foreign bodies. 2. Nonobstructive bowel pattern.
--- NOTE | ~2022-09-17 | XR_ITS ---
EXAMINATION: XR ABDOMEN KUB CLINICAL INDICATION: Nausea, postop COMPARISON: None TECHNIQUE: AP view of the abdomen. FINDINGS: There are postsurgical luther along the anterior abdominal wall. Scattered stool and gas seen in the colon without distention. Gaseous prominence of small bowel loops likely postop ileus. There is no organomegaly. No gross bony abnormality. The SI joints are symmetrical and normal. XR/XR KUB IMPRESSION: Postsurgical changes with stool in right colon nonspecific gas in the small bowel loops likely early postop ileus.
--- NOTE | ~2022-09-17 | FL_ITS ---
EXAMINATION: FL SMALL BOWEL SERIES CLINICAL INFORMATION: Postop ileus. COMPARISON: None TECHNIQUE: Following a pickling operator image of the abdomen, deviated Gastrografin contrast was administered orally, and interval abdominal radiographs were performed to assess for contrast progression through the small bowel. Following contrast transit through the small bowel and into the colon, the patient was placed on the fluoroscopy table, and multiple spot images were obtained. FINDINGS: [employer] image of the abdomen demonstrates a normal bowel gas pattern. There is normal transit time of Gastrografin contrast material through the small bowel, with contrast present in the colon by 1 hour 30 minutes. Small bowel loops are of normal caliber throughout the abdomen and pelvis. The jejunal and ileal fold patterns are normal, without evidence of abnormal thickening. No fixed regions of luminal narrowing are seen to suggest stricturing. The terminal ileum demonstrates a normal appearance. FLUOROSCOPY TIME: None DOSE AREA PRODUCT: None uGy-m2 (microgray-meter squared) FL/FL small bowel follow through IMPRESSION: Normal small bowel series.
--- NOTE | ~2022-09-17 | XR_ITS ---
EXAMINATION: XR ABDOMEN KUB CLINICAL INDICATION: NGTube placement verification COMPARISON: CT from the same date TECHNIQUE: AP view of the abdomen. FINDINGS: Enteric tube tip terminates in the stomach. Side-port is situated at the diaphragmatic hiatus. Multiple dilated loops of small bowel are present in the central abdomen. Contrast material is present within the renal collecting systems bilaterally. No pneumatosis or pneumoperitoneum. Lung bases are clear. XR/XR KUB IMPRESSION: 1. Enteric tube tip terminates in the stomach with side-port at the diaphragmatic hiatus. Consider advancing another 3 cm. 2. Dilated loops of small bowel in the central abdomen.
--- NOTE | ~2022-09-17 | XR_ITS ---
EXAMINATION: XR CHEST CLINICAL INFORMATION: NG tube placement. COMPARISON: 09/18/2022 (KUB and CT abdomen pelvis) TECHNIQUE: Frontal view of the chest was obtained. FINDINGS: NG tube tip terminates in the region of the gastric antrum in the right upper quadrant. Side-port is distal to the GE junction. Lungs are clear with normal lung volumes. No consolidation, pneumothorax, or pleural effusion. Cardiac and mediastinal contours are normal. No acute osseous findings. Pulmonary vasculature is normal. XR/XR chest 1V IMPRESSION: NG tube tip terminates in the region of the gastric antrum.
--- NOTE | ~2022-09-17 | CT_ITS ---
EXAMINATION: CT ABDOMEN AND PELVIS WITH CONTRAST CLINICAL INFORMATION: diffuse abd pain, hx carcinoid tumor COMPARISON: 12/23/2021 TECHNIQUE: Multidetector volumetric images were obtained from the superior aspect of the liver through the pubic symphysis following administration 85 mL of Omnipaque 350 intravenous contrast. Sagittal and coronal reformatted images were obtained on the technologist's workstation. Oral contrast: No This CT examination was performed using dose optimization techniques as appropriate, variously including the following: *Automated exposure control *Adjustment of mA and/or kV according to patient size (this includes techniques or standardized protocols for targeted exams where dose is matched to indication/reason for exam; i.e. extremities or head) *Use of iterative reconstruction technique DLP: 553 mGy-cm FINDINGS: LUNG BASES: Mild calcific at the sclerosis in the coronary arteries. There is a small 3 mm subpleural round solid pulmonary nodule in the anterobasal segment of the left lower lobe laterally near the major fissure (image 29 of series 502). This region was not included on multiple CTs of the abdomen and pelvis dating back to 2018. Lung bases are otherwise clear. Small sliding-type hiatal hernia. LIVER, GALLBLADDER, AND BILIARY TREE: The liver is normal in size, shape, and attenuation. No focal hepatic lesion or biliary ductal dilatation is present. The gallbladder is unremarkable with no evidence of radiopaque gallstones, gallbladder wall thickening, or obvious pericholecystic inflammatory changes. PANCREAS: Moderate fatty atrophy. No focal lesions. No pancreatic ductal dilatation. SPLEEN: Unremarkable. ADRENAL GLANDS: Unremarkable. KIDNEYS AND URETERS: The kidneys are normal in size, shape, and attenuation. No hydronephrosis, hydroureter, or calculi seen. No perinephric stranding. BLADDER: Unremarkable. GASTROINTESTINAL TRACT: There is marked small bowel dilatation in the central abdomen where small bowel loop passes the region of abnormal soft tissue in the central small bowel mesentery, possibly due to local tumor involvement or adhesions. The bowel in this region is dilated up to 4 cm in diameter with fecalization. Nearby anastomotic luther are present within the small bowel in the right upper quadrant, also adjacent to the region of abnormal soft tissue thickening in the central mesentery. The distal small bowel is decompressed. As seen in a loop of small bowel in the right upper quadrant on image 25/ of series 5 and /85 of series 3, there is a 1.5 x 2 cm focus of nodular wall thickening which may correspond to a small bowel lesion. Remaining left hemicolon is unremarkable. Trace amount of free fluid in the pelvis. Small hiatal hernia. ABDOMINAL WALL: Small fat-containing incisional hernias in the anterior abdomen without significant bowel involvement. LYMPH NODES: Normal. VASCULAR: As previously noted on prior studies, there is abnormal soft tissue surrounding the small bowel mesentery in the central abdomen involving the SMA, SMV, and the branches. No occlusion, though the SMV is markedly narrowed in this region. Upper s calcifications are present in the abdominal aorta. No aneurysmal dilatation. PELVIC VISCERA: The uterus and adnexa are unremarkable. OSSEOUS STRUCTURES: Mild multilevel degenerative spondylosis in the thoracolumbar spine. Mild osteoarthritis in the hips. No acute osseous findings. CT/CT abdomen pelvis w IV con IMPRESSION: 1. High-grade small bowel obstruction in the central abdomen where a loop of small bowel passes the region of abnormal soft tissue thickening in the central small bowel mesentery, potentially due to local tumor involvement or adhesions. 2. A 1.5 x 2 cm focus of nodular wall thickening in the small bowel in the right upper quadrant, potentially corresponding to a small bowel lesion. 3. A 3 mm solid pulmonary nodule in the left lower lobe. This region was not included on multiple CTs of the abdomen and pelvis dating back to 2018. Consider follow-up per oncology protocol. 4. Small sliding-type hiatal hernia. Fleischner guidelines were followed.
[2022-09-17 20:30] VITALS: BP 118/74; PULSE 96; RESP 18; TEMP 36.6; O2SAT 94; BMI 27.1
--- NOTE | 2022-09-17 20:32 | ED_ITS ---
HPI - Abdominal Pain General Chief Complaint: Abdominal Pain <RAVINDER Noonan - Last Filed: 09/17/22 20:37> Stated Complaint: nausea, abdominal pain <RAVINDER Noonan - Last Filed: 09/17/22 20:37> Time Seen by Provider: 09/17/22 21:52 <RAVINDER Noonan - Last Filed: 09/17/22 20:37> Related Data Home Medications: Home Medications Medication Instructions Recorded Confirmed albuterol 90 mcg/actuation aerosol 90 mcg inhalation NEEDED PRN 08/11/20 08/02/22 inhaler Bronchospasm loperamide 2 mg capsule 2 mg PO Q6H PRN Diarrhea 08/11/20 08/02/22 triamcinolone acetonide 0.1 % 1 appl dental QID 03/30/22 08/02/22 dental paste lorazepam 0.5 mg tablet 0.5 mg PO DIRECTED 07/14/22 08/02/22 Previous Rx's Medication Instructions Recorded meclizine 25 mg tablet 25 mg PO DAILY PRN motion sickness 10/26/21 90 days #90 tabs cholecalciferol (vitamin D3) 25 1,000 unit PO DAILY 90 days #90 12/03/21 mcg (1,000 unit) capsule caps loratadine 10 mg tablet 10 mg PO DAILY 90 days #90 tabs 12/24/21 tramadol 50 mg tablet 50 mg PO DAILY PRN Pain #30 tabs 02/08/22 sennosides 8.6 mg-docusate sodium 2 tab-cap PO BEDTIME 60 days #120 03/13/22 50 mg capsule (Senna Plus) caps oxybutynin chloride 10 mg 10 mg PO DAILY #90 tabs 03/17/22 tablet,extended release 24 hr omeprazole 20 mg capsule,delayed 20 mg PO DAILY #90 caps 06/14/22 release ferrous sulfate 325 mg (65 mg 325 mg PO BID #60 tabs 07/04/22 iron) tablet dicyclomine 20 mg tablet 20 mg PO TID PRN abdominal pain 30 07/07/22 days #60 tabs bisacodyl 5 mg tablet,delayed 10 mg PO ONCE colonoscopy prep 1 07/14/22 release (Dulcolax (bisacodyl)) day #2 tabs docusate sodium 100 mg capsule 200 mg PO BEDTIME PRN constipation 07/14/22 (Colace) 30 days #60 caps polyethylene glycol 3350 17 238 g PO ONCE 1 day #238 grams 07/14/22 gram/dose oral powder (Miralax) apixaban 5 mg tablet (Eliquis) 5 mg PO BID #60 tabs 08/03/22 simvastatin 20 mg tablet 20 mg PO QPM 90 days #90 tabs 08/29/22 montelukast 10 mg tablet 10 mg PO DAILY #90 tabs 09/07/22 dronedarone 400 mg tablet (Multaq) 400 mg PO BID 30 days #60 tabs 09/09/22 <RAVINDER Noonan - Last Filed: 09/17/22 20:37> Allergies/Adverse Reactions: Allergies Allergy/AdvReac Type Severity Reaction Status Date / Time Erythromycin Allergy Unknown GI upset, Verified 09/17/22 20:30 increases pain erythromycin base AdvReac Intermediate GI UPSET Verified 09/17/22 20:30 [Erythromycin Base] Motrin AdvReac Unknown GI Upset, Verified 09/17/22 20:30 increases pain Chocolate Allergy Mild RASH Uncoded 06/07/22 13:04 Environmental Allergy Unknown Unknown Uncoded 06/07/22 13:04 <RAVINDER Noonan - Last Filed: 09/17/22 20:37> [facility] Past Medical History Medical History: Medical History Afib Anemia Arthritis Asthma Colon polyp Constipation Diabetes Environmental allergies Gastric polyp GERD (gastroesophageal reflux disease) Hyperlipemia IBS (irritable bowel syndrome) Lipid disorder Neuroendocrine neoplasm of gastrointestinal tract Overactive bladder Paroxysmal atrial fibrillation Vitamin D deficiency <RAVINDER Noonan - Last Filed: 09/17/22 20:37> Surgical History: Surgical History History of colonoscopy History of esophagogastroduodenoscopy <RAVINDER Noonan - Last Filed: 09/17/22 20:37> Family History Family History: Family History Father Afib Pneumonia Brother Afib Heart disease Brother Heart disease Mother Unknown family medical history <RAVINDER Noonan - Last Filed: 09/17/22 20:37> Social History Social History: Social History Household Members: None Housing: House Housing Other:: [facility] Alcohol intake: never Patient Tobacco Use Status: Never used Tobacco e-Cigarette/Vaping Use: Never Used Advance Directives: No Advance Directives Information Provided: Yes service: No Current occupational status: disabled Cognitive needs: No Hearing needs: No Vision needs: Yes <RAVINDER Noonan - Last Filed: 09/17/22 20:37> Physical Exam ED Vital Signs: Vital Signs - 24 hr 09/17/22 20:30 09/18/22 01:31 Temperature 97.9 F 97.7 F Pulse Rate 96 89 Respiratory Rate 18 14 Blood Pressure 118/74 129/67 Pulse Oximetry 94 97 Oxygen Delivery Method Room Air Room Air BMI result Body Mass Index 27.1 <RAVINDER Noonan - Last Filed: 09/17/22 20:37> Vital Signs - 24 hr 09/17/22 20:30 09/18/22 01:31 Temperature 97.9 F 97.7 F Pulse Rate 96 89 Respiratory Rate 18 14 Blood Pressure 118/74 129/67 Pulse Oximetry 94 97 Oxygen Delivery Method Room Air Room Air BMI result Body Mass Index 27.1 <Trang Jean-Baptiste MD - Last Filed: 09/18/22 02:06> Course Course Course Narrative: RME--62yoF w/PMHx asthma, Afib, constipation, GERD, HLD, Neuroendocrine neoplasm c/o Abd pain & nausea x last night. Last BM last night. denies fever, chills, urinary sx, vomiting, diarrhea Abdomen is soft & nontender Labs, UA & SL Zofran ordered in triage <RAVINDER Noonan - Last Filed: 09/17/22 20:37> RME--62yoF w/PMHx asthma, Afib, constipation, GERD, HLD, Neuroendocrine neoplasm c/o Abd pain & nausea x last night. Last BM last night. denies fever, chills, urinary sx, vomiting, diarrhea Abdomen is soft & nontender Labs, UA & SL Zofran ordered in triage Patient's CT scan shows a high-grade small-bowel obstruction in the central abdomen. Patient currently vomiting, nausea gastric tube will be inserted. I discussed the patient with Dr. Johnson, who requests that internal medicine admit the patient and request to be consulted in the morning <Trang Jean-Baptiste MD - Last Filed: 09/18/22 02:06> Medications Administered Generic Name Dose Route Start Last Admin Trade Name Freq PRN Reason Stop Dose Admin Calcium Gluconate 2 gm in 100 mls @ 50 mls/hr 09/18/22 00:24 09/18/22 01:21 Calcium Gluconate IV 09/18/22 02:23 400 mls/hr ONCE ONE Administration Discontinued Medications Generic Name Dose Route Start Last Admin Trade Name Freq PRN Reason Stop Dose Admin Dextrose 50 gm 09/18/22 00:22 09/18/22 01:17 Dextrose 50 % 25 Gm/50 Ml Syringe IVPUSH 09/18/22 00:23 50 gm ONCE ONE Administration Insulin Human Regular 5 unit 09/18/22 00:22 09/18/22 01:15 Insulin Regular, Human 100 Unit/Ml 3 Ml Vial IVPUSH 09/18/22 00:23 5 unit ONCE ONE Administration Iohexol 85 ml 09/18/22 01:00 09/18/22 01:01 Iohexol 350 Mg/Ml 100 Ml Infus..Btl IV 09/18/22 01:01 85 ml ONCE ONE Administration Ondansetron HCl 4 mg 09/17/22 20:36 09/17/22 22:18 Ondansetron Odt 4 Mg Tab.Rapdis TRANSLINGU 09/17/22 20:37 4 mg ONCE ONE Administration Sodium Zirconium Cyclosilicate 10 gm 09/18/22 00:22 09/18/22 01:12 Sodium Zirconium Cyclosilicate 10 Gm Powd.Pack PO 09/18/22 00:23 10 gm ONCE ONE Administration <RAVINDER Noonan - Last Filed: 09/17/22 20:37> Medications Administered Generic Name Dose Route Start Last Admin Trade Name Freq PRN Reason Stop Dose Admin Calcium Gluconate 2 gm in 100 mls @ 50 mls/hr 09/18/22 00:24 09/18/22 01:21 Calcium Gluconate IV 09/18/22 02:23 400 mls/hr ONCE ONE Administration Discontinued Medications Generic Name Dose Route Start Last Admin Trade Name Freq PRN Reason Stop Dose Admin Dextrose 50 gm 09/18/22 00:22 09/18/22 01:17 Dextrose 50 % 25 Gm/50 Ml Syringe IVPUSH 09/18/22 00:23 50 gm ONCE ONE Administration Insulin Human Regular 5 unit 09/18/22 00:22 09/18/22 01:15 Insulin Regular, Human 100 Unit/Ml 3 Ml Vial IVPUSH 09/18/22 00:23 5 unit ONCE ONE Administration Iohexol 85 ml 09/18/22 01:00 09/18/22 01:01 Iohexol 350 Mg/Ml 100 Ml Infus..Btl IV 09/18/22 01:01 85 ml ONCE ONE Administration Ondansetron HCl 4 mg 09/17/22 20:36 09/17/22 22:18 Ondansetron Odt 4 Mg Tab.Rapdis TRANSLINGU 09/17/22 20:37 4 mg ONCE ONE Administration Sodium Zirconium Cyclosilicate 10 gm 09/18/22 00:22 09/18/22 01:12 Sodium Zirconium Cyclosilicate 10 Gm Powd.Pack PO 09/18/22 00:23 10 gm ONCE ONE Administration <Trang Jean-Baptiste MD - Last Filed: 09/18/22 02:06> MDM - Abdominal Pain Lab Data Result diagrams: : 09/17/22 20:39 09/17/22 22:32 <RAVINDER Noonan - Last Filed: 09/17/22 20:37> Labs: Lab Results 09/17/22 09/17/22 09/17/22 Range/Units 20:39 20:39 22:32 WBC 11.8 H (4.8-10.8) X10*3/uL RBC 4.02 L (4.20-5.50) X10*6/uL Hgb 12.0 (12.0-16.0) g/dl Hct 37.3 (37.0-47.0) % MCV 92.8 (80.0-98.0) fL MCH 29.9 (27.0-33.0) pg MCHC 32.2 (31.0-35.0) g/dl RDW 14.6 (11.0-16.0) % Plt Count 312 D (160-400) X10*3/uL MPV 10.2 (9.4-12.3) fL Immature Gran % (Auto) 0.5 H (0.0-0.4) % Neut % (Auto) 75.4 H (45-73) % Lymph % (Auto) 17.0 L (20-40) % [place] % (Auto) 6.5 (2-11) % Eos % (Auto) 0.3 (0-4) % Baso % (Auto) 0.3 (0-2) % Lymph # (Auto) 2.0 (1.2-4.9) X10*3/uL [place] # (Auto) 0.8 (0.1-1.2) X10*3/uL Eos # (Auto) 0.0 (0.0-0.4) X10*3/uL Baso # (Auto) 0.0 (0.0-0.2) X10*3/uL Abs Immat Gran (auto) 0.06 H (0.00-0.03) X10*3/uL Absolute Neuts (auto) 8.9 H (2.0-8.3) x10*3/uL Absolute Nucleated RBC 0.000 (0.0-0.012) X10*3/uL Nucleated RBC % (auto) 0.0 (0.0-0.2) /100WBC Sodium 141 (135-145) mmol/L Potassium 5.9 H D 5.7 H (3.3-5.1) mmol/L Chloride 105 (96-108) mmol/L Carbon Dioxide 24 (22-29) mmol/L Anion Gap 18 (12-20) BUN 22 H (9-16) mg/dL Creatinine 1.21 (0.5-1.4) mg/dL Estim Creat Clear Calc 36.1 Estimated GFR 45 Random Glucose 136 H (60-115) mg/dL Calcium 9.8 D (8.4-10.2) mg/dL Magnesium 2.1 (1.6-2.6) mg/dL Total Bilirubin 0.4 (0.0-1.0) mg/dL Direct Bilirubin 0.2 (0.0-0.5) mg/dL AST 17 D (5-31) U/L ALT 9 (0-31) U/L Alkaline Phosphatase 70 (39-117) U/L Total Protein 7.5 (6.5-8.0) g/dL Albumin 4.6 (3.5-5.0) g/dL Lipase 27 (8-78) U/L Urine Color Urine Appearance Urine pH (5.0-9.0) Ur Specific [place] (1.005-1.025) Urine Protein (Neg-Trace) mg/dL Urine Glucose (UA) (Negative) mg/dL Urine Ketones (Negative) mg/dL Urine Blood (Negative) Urine Nitrite (Negative) Ur Leukocyte Esterase (Negative) 09/18/22 Range/Units 00:15 WBC (4.8-10.8) X10*3/uL RBC (4.20-5.50) X10*6/uL Hgb (12.0-16.0) g/dl Hct (37.0-47.0) % MCV (80.0-98.0) fL MCH (27.0-33.0) pg MCHC (31.0-35.0) g/dl RDW (11.0-16.0) % Plt Count (160-400) X10*3/uL MPV (9.4-12.3) fL Immature Gran % (Auto) (0.0-0.4) % Neut % (Auto) (45-73) % Lymph % (Auto) (20-40) % [place] % (Auto) (2-11) % Eos % (Auto) (0-4) % Baso % (Auto) (0-2) % Lymph # (Auto) (1.2-4.9) X10*3/uL [place] # (Auto) (0.1-1.2) X10*3/uL Eos # (Auto) (0.0-0.4) X10*3/uL Baso # (Auto) (0.0-0.2) X10*3/uL Abs Immat Gran (auto) (0.00-0.03) X10*3/uL Absolute Neuts (auto) (2.0-8.3) x10*3/uL Absolute Nucleated RBC (0.0-0.012) X10*3/uL Nucleated RBC % (auto) (0.0-0.2) /100WBC Sodium (135-145) mmol/L Potassium (3.3-5.1) mmol/L Chloride (96-108) mmol/L Carbon Dioxide (22-29) mmol/L Anion Gap (12-20) BUN (9-16) mg/dL Creatinine (0.5-1.4) mg/dL Estim Creat Clear Calc Estimated GFR Random Glucose (60-115) mg/dL Calcium (8.4-10.2) mg/dL Magnesium (1.6-2.6) mg/dL Total Bilirubin (0.0-1.0) mg/dL Direct Bilirubin (0.0-0.5) mg/dL AST (5-31) U/L ALT (0-31) U/L Alkaline Phosphatase (39-117) U/L Total Protein (6.5-8.0) g/dL Albumin (3.5-5.0) g/dL Lipase (8-78) U/L Urine Color Yellow Urine Appearance Clear Urine pH 5.0 (5.0-9.0) Ur Specific [place] 1.025 (1.005-1.025) Urine Protein Negative (Neg-Trace) mg/dL Urine Glucose (UA) Negative (Negative) mg/dL Urine Ketones Trace (Negative) mg/dL Urine Blood Negative (Negative) Urine Nitrite Negative (Negative) Ur Leukocyte Esterase Negative (Negative) <RAVINDER Noonan - Last Filed: 09/17/22 20:37> Lab Results 09/17/22 09/17/22 09/17/22 Range/Units 20:39 20:39 22:32 WBC 11.8 H (4.8-10.8) X10*3/uL RBC 4.02 L (4.20-5.50) X10*6/uL Hgb 12.0 (12.0-16.0) g/dl Hct 37.3 (37.0-47.0) % MCV 92.8 (80.0-98.0) fL MCH 29.9 (27.0-33.0) pg MCHC 32.2 (31.0-35.0) g/dl RDW 14.6 (11.0-16.0) % Plt Count 312 D (160-400) X10*3/uL MPV 10.2 (9.4-12.3) fL Immature Gran % (Auto) 0.5 H (0.0-0.4) % Neut % (Auto) 75.4 H (45-73) % Lymph % (Auto) 17.0 L (20-40) % [place] % (Auto) 6.5 (2-11) % Eos % (Auto) 0.3 (0-4) % Baso % (Auto) 0.3 (0-2) % Lymph # (Auto) 2.0 (1.2-4.9) X10*3/uL [place] # (Auto) 0.8 (0.1-1.2) X10*3/uL Eos # (Auto) 0.0 (0.0-0.4) X10*3/uL Baso # (Auto) 0.0 (0.0-0.2) X10*3/uL Abs Immat Gran (auto) 0.06 H (0.00-0.03) X10*3/uL Absolute Neuts (auto) 8.9 H (2.0-8.3) x10*3/uL Absolute Nucleated RBC 0.000 (0.0-0.012) X10*3/uL Nucleated RBC % (auto) 0.0 (0.0-0.2) /100WBC Sodium 141 (135-145) mmol/L Potassium 5.9 H D 5.7 H (3.3-5.1) mmol/L Chloride 105 (96-108) mmol/L Carbon Dioxide 24 (22-29) mmol/L Anion Gap 18 (12-20) BUN 22 H (9-16) mg/dL Creatinine 1.21 (0.5-1.4) mg/dL Estim Creat Clear Calc 36.1 Estimated GFR 45 Random Glucose 136 H (60-115) mg/dL Calcium 9.8 D (8.4-10.2) mg/dL Magnesium 2.1 (1.6-2.6) mg/dL Total Bilirubin 0.4 (0.0-1.0) mg/dL Direct Bilirubin 0.2 (0.0-0.5) mg/dL AST 17 D (5-31) U/L ALT 9 (0-31) U/L Alkaline Phosphatase 70 (39-117) U/L Total Protein 7.5 (6.5-8.0) g/dL Albumin 4.6 (3.5-5.0) g/dL Lipase 27 (8-78) U/L Urine Color Urine Appearance Urine pH (5.0-9.0) Ur Specific [place] (1.005-1.025) Urine Protein (Neg-Trace) mg/dL Urine Glucose (UA) (Negative) mg/dL Urine Ketones (Negative) mg/dL Urine Blood (Negative) Urine Nitrite (Negative) Ur Leukocyte Esterase (Negative) 09/18/22 Range/Units 00:15 WBC (4.8-10.8) X10*3/uL RBC (4.20-5.50) X10*6/uL Hgb (12.0-16.0) g/dl Hct (37.0-47.0) % MCV (80.0-98.0) fL MCH (27.0-33.0) pg MCHC (31.0-35.0) g/dl RDW (11.0-16.0) % Plt Count (160-400) X10*3/uL MPV (9.4-12.3) fL Immature Gran % (Auto) (0.0-0.4) % Neut % (Auto) (45-73) % Lymph % (Auto) (20-40) % [place] % (Auto) (2-11) % Eos % (Auto) (0-4) % Baso % (Auto) (0-2) % Lymph # (Auto) (1.2-4.9) X10*3/uL [place] # (Auto) (0.1-1.2) X10*3/uL Eos # (Auto) (0.0-0.4) X10*3/uL Baso # (Auto) (0.0-0.2) X10*3/uL Abs Immat Gran (auto) (0.00-0.03) X10*3/uL Absolute Neuts (auto) (2.0-8.3) x10*3/uL Absolute Nucleated RBC (0.0-0.012) X10*3/uL Nucleated RBC % (auto) (0.0-0.2) /100WBC Sodium (135-145) mmol/L Potassium (3.3-5.1) mmol/L Chloride (96-108) mmol/L Carbon Dioxide (22-29) mmol/L Anion Gap (12-20) BUN (9-16) mg/dL Creatinine (0.5-1.4) mg/dL Estim Creat Clear Calc Estimated GFR Random Glucose (60-115) mg/dL Calcium (8.4-10.2) mg/dL Magnesium (1.6-2.6) mg/dL Total Bilirubin (0.0-1.0) mg/dL Direct Bilirubin (0.0-0.5) mg/dL AST (5-31) U/L ALT (0-31) U/L Alkaline Phosphatase (39-117) U/L Total Protein (6.5-8.0) g/dL Albumin (3.5-5.0) g/dL Lipase (8-78) U/L Urine Color Yellow Urine Appearance Clear Urine pH 5.0 (5.0-9.0) Ur Specific [place] 1.025 (1.005-1.025) Urine Protein Negative (Neg-Trace) mg/dL Urine Glucose (UA) Negative (Negative) mg/dL Urine Ketones Trace (Negative) mg/dL Urine Blood Negative (Negative) Urine Nitrite Negative (Negative) Ur Leukocyte Esterase Negative (Negative) <Trang Jean-Baptiste MD - Last Filed: 09/18/22 02:06> Imaging Data CT scan - abdomen: Radiologist's impression: FINDINGS: LUNG BASES: Mild calcific at the sclerosis in the coronary arteries. There is a small 3 mm subpleural round solid pulmonary nodule in the anterobasal segment of the left lower lobe laterally near the major fissure (image 29 of series 502). This region was not included on multiple CTs of the abdomen and pelvis dating back to 2018. Lung bases are otherwise clear. Small sliding-type hiatal hernia. LIVER, GALLBLADDER, AND BILIARY TREE: The liver is normal in size, shape, and attenuation. No focal hepatic lesion or biliary ductal dilatation is present. The gallbladder is unremarkable with no evidence of radiopaque gallstones, gallbladder wall thickening, or obvious pericholecystic inflammatory changes.? PANCREAS: Moderate fatty atrophy. No focal lesions. No pancreatic ductal dilatation. SPLEEN: Unremarkable.? ADRENAL GLANDS: Unremarkable.? KIDNEYS AND URETERS: The kidneys are normal in size, shape, and attenuation. No hydronephrosis, hydroureter, or calculi seen. No perinephric stranding. ? BLADDER: Unremarkable.? GASTROINTESTINAL TRACT: There is marked small bowel dilatation in the central abdomen where small bowel loop passes the region of abnormal soft tissue in the central small bowel mesentery, possibly due to local tumor involvement or adhesions. The bowel in this region is dilated up to 4 cm in diameter with fecalization. Nearby anastomotic luther are present within the small bowel in the right upper quadrant, also adjacent to the region of abnormal soft tissue thickening in the central mesentery. The distal small bowel is decompressed. As seen in a loop of small bowel in the right upper quadrant on image 25/ of series 5 and / of series 3, there is a 1.5 x 2 cm focus of nodular wall thickening which may correspond to a small bowel lesion. Remaining left hemicolon is unremarkable. Trace amount of free fluid in the pelvis. Small hiatal hernia. ABDOMINAL WALL: Small fat-containing incisional hernias in the anterior abdomen without significant bowel involvement.? LYMPH NODES: Normal. VASCULAR: As previously noted on prior studies, there is abnormal soft tissue surrounding the small bowel mesentery in the central abdomen involving the SMA, SMV, and the branches. No occlusion, though the SMV is markedly narrowed in this region. Upper s calcifications are present in the abdominal aorta. No aneurysmal dilatation. PELVIC VISCERA: The uterus and adnexa are unremarkable.? OSSEOUS STRUCTURES: Mild multilevel degenerative spondylosis in the thoracolumbar spine. Mild osteoarthritis in the hips. No acute osseous findings.? CT/CT abdomen pelvis w IV con IMPRESSION: 1.? High-grade small bowel obstruction in the central abdomen where a loop of small bowel passes the region of abnormal soft tissue thickening in the central small bowel mesentery, potentially due to local tumor involvement or adhesions. 2.? A 1.5 x 2 cm focus of nodular wall thickening in the small bowel in the right upper quadrant, potentially corresponding to a small bowel lesion. 3.? A 3 mm solid pulmonary nodule in the left lower lobe. This region was not included on multiple CTs of the abdomen and pelvis dating back to 2018. Consider follow-up per oncology protocol. 4.? Small sliding-type hiatal hernia. ? Fleischner guidelines were followed. <Trang Jean-Baptiste MD - Last Filed: 09/18/22 02:06> Discharge Plan Discharge Clinical Impression: Small bowel obstruction, Acute hyperkalemia <RAVINDER Noonan - Last Filed: 09/17/22 20:37> Patient Disposition: Admitted As Inpatient <RAVINDER Noonan - Last Filed: 09/17/22 20:37> Prescriptions: No Action meclizine 25 mg tablet 25 mg PO DAILY PRN (Reason: motion sickness) 90 Days Qty: 90 3RF cholecalciferol (vitamin D3) 25 mcg (1,000 unit) capsule 1,000 unit PO DAILY 90 Days Qty: 90 3RF loratadine 10 mg tablet 10 mg PO DAILY 90 Days Qty: 90 3RF Senna Plus 8.6-50 mg capsule 2 tab-cap PO BEDTIME 60 Days Qty: 120 3RF oxybutynin chloride 10 mg tablet extended release 24 hr 10 mg PO DAILY Qty: 90 3RF omeprazole 20 mg capsule,delayed release(DR/EC) 20 mg PO DAILY Qty: 90 1RF ferrous sulfate 325 mg (65 mg iron) Tablet 325 mg PO BID Qty: 60 4RF dicyclomine 20 mg tablet 20 mg PO TID PRN (Reason: abdominal pain) 30 Days Qty: 60 0RF Eliquis 5 mg tablet 5 mg PO BID Qty: 60 5RF simvastatin 20 mg tablet 20 mg PO QPM 90 Days Qty: 90 1RF montelukast 10 mg tablet 10 mg PO DAILY Qty: 90 0RF Multaq 400 mg tablet 400 mg PO BID 30 Days Qty: 60 5RF albuterol 90 mcg/actuation Aerosol 90 mcg INHALATION NEEDED PRN (Reason: Bronchospasm) loperamide [Imodium] 2 mg Capsule 2 mg PO Q6H PRN (Reason: Diarrhea) tramadol 50 mg Tablet 50 mg PO DAILY PRN (Reason: Pain) Qty: 30 0RF triamcinolone acetonide 0.1 % paste 1 appl dental QID lorazepam 0.5 mg tablet 0.5 mg PO DIRECTED bisacodyl [Dulcolax (bisacodyl)] 5 mg tablet,delayed release (DR/EC) 10 mg PO ONCE 1 Days Qty: 2 0RF Rx Instructions: Take 2 tablets by mouth at 12:00pm the day before your procedure. polyethylene glycol 3350 [Miralax] 17 gram/dose powder 238 g PO ONCE 1 Days Qty: 238 0RF Rx Instructions: Take as directed by mouth the day before your procedure. docusate sodium [Colace] 100 mg capsule 200 mg PO BEDTIME PRN (Reason: constipation) 30 Days Qty: 60 3RF Rx Instructions: as need for constipation- stop if diarrhea <RAVINDER Noonan - Last Filed: 09/17/22 20:37>
[2022-09-17 20:43] LABS: MANUAL DIFF FLAG NO
[2022-09-17 20:48] LABS: Basophils Percent Auto 0.3 % (0-2); Eosinophils Percent Auto 0.3 % (0-4); Hematocrit 37.3 % (37.0-47.0); Imm Gran Abs Auto 0.06 X10*3/uL (0.00-0.03); Imm Gran Pct Auto 0.5 % (0.0-0.4); Mean Corpuscular HGB Conc 32.2 g/dl (31.0-35.0); Mean Corpuscular Hemoglobin 29.9 pg (27.0-33.0); Mean Corpuscular Volume 92.8 fL (80.0-98.0); Mean Platelet Volume 10.2 fL (9.4-12.3); Monocytes Absolute Auto 0.8 X10*3/uL (0.1-1.2); Monocytes Percent Auto 6.5 % (2-11); Neutrophils Absolute Auto 8.9 x10*3/uL (2.0-8.3); Neutrophils Percent Auto 75.4 % (45-73); Platelet Count 312 X10*3/uL (160-400); Red Blood Count 4.02 X10*6/uL (4.20-5.50); Red Cell Distribution Width 14.6 % (11.0-16.0); White Blood Count 11.8 X10*3/uL (4.8-10.8)
[2022-09-17 21:41] LABS: Alanine Aminotransferase 9 U/L (0-31); Albumin Level 4.6 g/dL (3.5-5.0); Alkaline Phosphatase 70 U/L (39-117); Anion Gap 18 (12-20); Aspartate Amino Transferase 17 U/L (5-31); Bilirubin Direct 0.2 mg/dL (0.0-0.5); Bilirubin Total 0.4 mg/dL (0.0-1.0); Blood Urea Nitrogen 22 mg/dL (9-16); Calcium 9.8 mg/dL (8.4-10.2); Carbon Dioxide 24 mmol/L (22-29); Chloride 105 mmol/L (96-108); Creatinine Clr Calc Pharmacy 36.1; Estimated Glomerular Filt Rate 45; Glucose Random 136 mg/dL (60-115); Lipase 27 U/L (8-78); Magnesium 2.1 mg/dL (1.6-2.6); Potassium 5.9 mmol/L (3.3-5.1); Sodium 141 mmol/L (135-145); Total Protein 7.5 g/dL (6.5-8.0)
--- NOTE | 2022-09-17 22:01 | ECG_ITS ---
Test Reason : pain Blood Pressure : / mmHG Vent. Rate : 068 BPM Atrial Rate : 068 BPM P-R Int : 188 ms QRS Dur : 062 ms QT Int : 388 ms P-R-T Axes : 097 055 083 degrees QTc Int : 412 ms Sinus rhythm with occasional Premature ventricular complexes Nonspecific ST abnormality Abnormal ECG When compared with ECG of 26-AUG-2021 22:20, Non-specific change in ST segment in Lateral leads Referred By: Trang Jean-Baptiste Electronically Signed By:EDUARDO LARKIN MD
[2022-09-17] MEDS: Ondansetron ODT 4 MG TAB.RAPDIS TRANSLINGU (22:18)
--- OUTSIDE RECORDS SUMMARY | 2022-09-17 22:19 | XMS_ITS | Continuity of Care Document ---
:1960 Author Organization [facility] [address] Address [address] [place] [address]- Care Team Providers Name Role Phone Bro QUISPE, Asma Primary Care Physician Encounter [facility] Date(s): 02/12/20 - 02/22/20 [facility] [address] [place] [address]- [facility] Attending Physician: Jesu Negron Admitting Physician: Jesu Negron Referring Physician: AdmtrJesu Allergies, Adverse Reactions, Alerts Substance Reaction Severity Status Motrin gi upset Active Lipitor estion of Active Bactrim GI upset Active erythromycin ethylsuccinate gi upset Acti ve Chocolate rash Active Other Environmental Allergy Acti ve Immunizations Given and Recorded Vaccine Date Status Refusal Reason Pneumococcal Vaccine (oldterm) 12/28/06 Given Pneumococcal Vaccine (oldterm)1 12/28/06 Given 1Result Comment: lot # [id number] exp. date 07/23/08. Medications Amiodarone 200, mg, By Mouth, 2 times a day, 0, 0, 0, 12/26/06 17:50:58, [id number], Constant Indicator Start Date: 12/26/06 Status: OrderedEliquis 5 mg oral tablet 1 tablet = 5 mg, By Mouth, 2 times a day, # 60 tablet, 0 Refills, Maintenance, 02/12/20 18:03:00 EDT, Tablet Start Date: 02/12/20 Status: OrderedHycodan oral syrup 5, mL, By Mouth, Every 4 hours, 120, mL, 0, 0, 12/28/06 9:57:00, Print FAY Number, ADS OPPTHS, 51, Constant Indicator Start Date: 12/28/06 Status: OrderedImodium A-D EZ Chews 2 mg oral tablet, chewable 0.5 tablet = 1 mg, Chew, 2 times a day, PRN for loose stool, # 20 tablet, 0 Refills, Maintenance, 02/12/20 18:04:00 EDT, Chew Tablet Start Date: 02/12/20 Status: OrderedLevaquin 500 mg oral tablet 500, mg, 1, tablet, By Mouth, Every 24 hours, 8, tablet, 12/28/06 7:45:05, ADS OPPTHS, 46 Start Date: 12/28/06 Stop Date: 01/05/07 Status: Orderedloratadine 10 mg oral tablet 10, mg, 1, tablet, By Mouth, Daily, 0, 0, 01/12/06 11:42:11, Print FAY Number, [id number], Constant Indicator Start Date: 01/12/06 Status: Orderedmeclizine 25 mg oral tablet 1 tablet = 25 mg, By Mouth, Daily, # 60 tablet, 0 Refills, Maintenance, 02/12/20 18:03:00 EDT, Tablet Start Date: 02/12/20 Status: Orderedoxybutynin 10 mg/24 hr oral tablet, extended release 1 tablet = 10 mg, By Mouth, Daily, # 30 tablet, 0 Refills, Maintenance, 02/12/20 18:03:00 EDT, ER Tablet Start Date: 02/12/20 Status: OrderedoxyCODONE 5 mg oral capsule 1 capsule = 5 mg, By Mouth, Every 4 hours, PRN as needed for pain, 0 Refills, Maintenance, 02/12/20 18:05:00 EDT, Capsule, Partial fill upon patient request Start Date: 02/12/20 Status: OrderedPrilosec OTC 20 mg oral enteric coated tablet 20, mg, 1, tablet, By Mouth, Daily, 0, 0, 12/27/06 12:10:34, Print FAY Number, [id number], Constant Indicator Start Date: 12/27/06 Status: OrderedVytorin 10 mg-20 mg oral tablet 1, tablet, By Mouth, Daily, 0, 0, 12/27/06 12:10:55, Print FYA Number, [id number], Constant Indicator Start Date: 12/27/06 Status: OrderedWarfarin Tablet 1.5, mg, By Mouth, Daily, 0, 0, 12/27/06 19:56:36, Print FAY Number, [id number], Constant Indicator Start Date: 12/27/06 Status: Ordered Problem List Condition Effective Dates Status Health Status Informant Atrial fibrillation(Confirmed) Active Depression(Confirmed) Active Diabetes mellitus(Confirmed) Active Hyperlipidemia(Confirmed) Active Menstrual disorder(Confirmed) Active Vulvovaginitis(Confirmed) Active Social History Social History Type Response Smoking Status Never (less than 100 in life time) entered on: 02/12/20 Sex
--- OUTSIDE RECORDS SUMMARY | 2022-09-17 22:19 | XMS_ITS | Continuity of Care Document ---
:1960 Author Organization [facility] [place] Address [address] [place] [address]- Care Team Providers Name Role Phone Bro QUISPE, Patti Primary Care Physician En[place] [facility] [place]): 02/12/20 - 02/19/20 [facility] [address] [place] [address]- [facility] Attending Physician: Lacey Davies MD Referring Physician: Patti Crabtree MD Allergies, Adverse Reactions, Alerts Substance Reaction Severity Status Motrin gi upset Active Lipitor estion of Active Bactrim GI upset Active erythromycin ethylsuccinate gi upset Acti ve Chocolate rash Active Other Environmental Allergy Acti ve Immunizations Given and Recorded Vaccine Date Status Refusal Reason Pneumococcal Vaccine (oldterm) 12/28/06 Given Pneumococcal Vaccine (oldterm)1 12/28/06 Given 1Result Comment: lot # [id number] exp. date 07/23/08. Medications Amiodarone 200, mg, By Mouth, 2 times a day, 0, 0, 0, 12/26/06 17:50:58, [id number], Constant Indicator Start Date: 12/26/06 Status: OrderedEliquis [...] 0, 0, 01/12/06 11:42:11, Print FAY Number, [id number], Constant Indicator Start Date: 01/12/06 Status: Orderedmeclizine [...] 0, 0, 12/27/06 12:10:34, Print FAY Number, [id number], Constant Indicator Start Date: 12/27/06 Status: OrderedVytorin 10 mg-20 mg oral tablet 1, tablet, By Mouth, Daily, 0, 0, 12/27/06 12:10:55, Print FAY Number, [id number], Constant Indicator Start Date: 12/27/06 Status: OrderedWarfarin Tablet 1.5, mg, By Mouth, Daily, 0, 0, 12/27/06 19:56:36, Print FAY Number, [id number], Constant Indicator Start Date: 12/27/06 Status: Ordered Problem List Condition Effective Dates Status Health Status Informant Atrial fibrillation(Confirmed) Active Depression(Confirmed) Active Diabetes mellitus(Confirmed) Active Hyperlipidemia(Confirmed) Active Menstrual disorder(Confirmed) Active Vulvovaginitis(Confirmed) Active Vital Signs Most recent to oldest [Reference Range]: 1 Height 149.00 cm (02/12/20 6:00 PM) Weight 46.5 kg (02/12/20 6:00 PM) Oxygen Saturation [94-100 %] 98 % (02/12/20 6:00 PM) Pulse Rate [55-90 bpm] 78 bpm (02/12/20 6:00 PM) Body Mass Index [18.5-24.99] 20.95 (02/12/20 6:00 PM) Blood Pressure [90-138/55-84 mm Hg] 97/55 mm Hg (02/12/20 6:00 PM) Temperature [96.8-100.4 DegF] 98.8 DegF (02/12/20 6:00 PM) Blood pressure sites Arm, left (02/12/20 6:00 PM) Temperature Route Temporal (02/12/20 6:00 PM) Weight Obtained Via Standing scale (02/12/20 6:00 PM) Social History Social History Type Response Smoking Status Never (less than 100 in life time) entered on: 02/12/20 Sex
--- NOTE | 2022-09-17 22:25 | ED.ABDPAIN ---
HPI - Abdominal Pain General Chief Complaint: Abdominal Pain Stated Complaint: nausea, abdominal pain Time Seen by Provider: 09/17/22 21:52 Source: patient Mode of arrival: ambulatory Limitations: no limitations History of Present Illness HPI narrative: Patient comes to the emergency room complaining of diffuse abdominal pain. Patient states that the pain has been present for about 1 day, complaining of nausea, no vomiting or diarrhea, complaining of constipation, states she had a bowel movement yesterday but not today. Patient tried taking Colace without any affect. Patient has history of a carcinoid tumor. Patient is currently undergoing treatment with monthly IM injections. Patient denies URI or UTI symptoms. Related Data Home Medications Medication Instructions Recorded Confirmed albuterol 90 mcg/actuation aerosol 90 mcg inhalation NEEDED PRN 08/11/20 08/02/22 inhaler Bronchospasm loperamide 2 mg capsule 2 mg PO Q6H PRN Diarrhea 08/11/20 08/02/22 triamcinolone acetonide 0.1 % 1 appl dental QID 03/30/22 08/02/22 dental paste lorazepam 0.5 mg tablet 0.5 mg PO DIRECTED 07/14/22 08/02/22 Previous Rx's Medication Instructions Recorded meclizine 25 mg tablet 25 mg PO DAILY PRN motion sickness 10/26/21 90 days #90 tabs cholecalciferol (vitamin D3) 25 1,000 unit PO DAILY 90 days #90 12/03/21 mcg (1,000 unit) capsule caps loratadine 10 mg tablet 10 mg PO DAILY 90 days #90 tabs 12/24/21 tramadol 50 mg tablet 50 mg PO DAILY PRN Pain #30 tabs 02/08/22 sennosides 8.6 mg-docusate sodium 2 tab-cap PO BEDTIME 60 days #120 03/13/22 50 mg capsule (Senna Plus) caps oxybutynin chloride 10 mg 10 mg PO DAILY #90 tabs 03/17/22 tablet,extended release 24 hr omeprazole 20 mg capsule,delayed 20 mg PO DAILY #90 caps 06/14/22 release ferrous sulfate 325 mg (65 mg 325 mg PO BID #60 tabs 07/04/22 iron) tablet dicyclomine 20 mg tablet 20 mg PO TID PRN abdominal pain 30 07/07/22 days #60 tabs bisacodyl 5 mg tablet,delayed 10 mg PO ONCE colonoscopy prep 1 07/14/22 release (Dulcolax (bisacodyl)) day #2 tabs docusate sodium 100 mg capsule 200 mg PO BEDTIME PRN constipation 07/14/22 (Colace) 30 days #60 caps polyethylene glycol 3350 17 238 g PO ONCE 1 day #238 grams 07/14/22 gram/dose oral powder (Miralax) apixaban 5 mg tablet (Eliquis) 5 mg PO BID #60 tabs 08/03/22 simvastatin 20 mg tablet 20 mg PO QPM 90 days #90 tabs 08/29/22 montelukast 10 mg tablet 10 mg PO DAILY #90 tabs 09/07/22 dronedarone 400 mg tablet (Multaq) 400 mg PO BID 30 days #60 tabs 09/09/22 Allergies Allergy/AdvReac Type Severity Reaction Status Date / Time Erythromycin Allergy Unknown GI upset, Verified 09/17/22 20:30 increases pain erythromycin base AdvReac Intermediate GI UPSET Verified 09/17/22 20:30 [Erythromycin Base] Motrin AdvReac Unknown GI Upset, Verified 09/17/22 20:30 increases pain Chocolate Allergy Mild RASH Uncoded 06/07/22 13:04 Environmental Allergy Unknown Unknown Uncoded 06/07/22 13:04 Review of Systems Review of Systems Constitutional : No Weight loss, No Fever, No Chills, No Night Sweats, No Fatigue, No Malaise ENT/Mouth : No Hearing loss, No Ear Pain, No Nasal Congestion, No Sinus Pain, No Hoarseness, No sore throat, No Rhinorrhea, No Swallowing Difficulty Eyes: No Eye Pain, No Swelling, No Redness, No Foreign Body, No Discharge, No Vision Changes Cardiovascular : No Chest Pain, No SOB, No Dyspnea on Exertion, No Orthopnea, No Edema, No Palpitations Respiratory : No Cough, No Sputum, No Wheezing, No Smoke Exposure, No Dyspnea Gastrointestinal : Complaining of nausea, no vomiting or diarrhea, [place] of constipation, complaining of diffuse abdominal pain Genitourinary : no irregular bleeding, No Dysuria, No Urinary Frequency, No Hematuria, No Urinary Incontinence, No Urgency, No Flank Pain, No Urinary Flow Changes, No Hesitancy Musculoskeletal : No joint pain, No Myalgias, No Joint Swelling Skin : No Skin Lesions, No rash Neuro : No Weakness, No Numbness, No Paresthesias, No Loss of Consciousness, No Dizziness, No Headache Psych : No Anxiety/Panic, No Depression, No SI/HI/AH/VH, No Social Issues, Heme/Lymph: No Bruising, No Bleeding,No Lymphadenopathy Endocrine : No Polyuria, No Polydipsia, No Temperature Intolerance [facility] Past Medical History Medical History Afib Anemia Arthritis Asthma Colon polyp Constipation Diabetes Environmental allergies Gastric polyp GERD (gastroesophageal reflux disease) Hyperlipemia IBS (irritable bowel syndrome) Lipid disorder Neuroendocrine neoplasm of gastrointestinal tract Overactive bladder Paroxysmal atrial fibrillation Vitamin D deficiency Surgical History History of colonoscopy History of esophagogastroduodenoscopy Family History Family History Father Afib Pneumonia Brother Afib Heart disease Brother Heart disease Mother Unknown family medical history Social History Social History Household Members: None Housing: House Housing Other:: [facility] health [facility] Alcohol intake: never Patient Tobacco Use Status: Never used Tobacco e-Cigarette/Vaping Use: Never Used Advance Directives: No Advance Directives Information Provided: Yes service: No Current occupational status: disabled Cognitive needs: No Hearing needs: No Vision needs: Yes Physical Exam ED Vital Signs: Vital Signs - 24 hr 09/17/22 20:30 09/18/22 01:31 Temperature 97.9 F 97.7 F Pulse Rate 96 89 Respiratory Rate 18 14 Blood Pressure 118/74 129/67 Pulse Oximetry 94 97 Oxygen Delivery Method Room Air Room Air BMI result Body Mass Index 27.1 Const Other: Appearance: Alert. Oriented X3. No acute distress. Eyes: Pupils equal, round and reactive to light. ENT: Pharynx normal. Neck: Normal inspection. Neck supple. No lymph nodes noted. No crepitus CVS: Normal heart rate and rhythm. Pulses normal. Normal S1 and S2 Respiratory: No respiratory distress. Breath sounds normal. No Wheezing. No rales Abdomen: Soft normally distended, does not seem to be tender in any quadrant on deep palpation Skin: Skin warm and dry. Normal skin color. Normal skin turgor. Extremities: No lower extremity edema. No Lacerations. No Rash Neuro: Oriented X 3. No motor deficit. No sensory deficit. Moving all extremities. No slurred speech. CN 2 through 12 grossly intact Psych: calm, cooperative, normal affect Course Course Course Narrative: Patient's potassium was recheck, it is elevated, EKG does not show any peaked T-waves. Patient given D50 2 doses, insulin 5 units, Lokelma and calcium gluconate. CT scan pending CT scans shows a high-grade small-bowel obstruction in the center abdomen. I discussed the CT scan and labs with Dr. Johnson, who requests that the patient gets admitted by the medicine service. Requesting to be consulted in the morning Patient started vomiting, NG tube in place. Morphine given. Repeat labs to assess for hyperkalemia are pending Medications Administered Generic Name Dose Route Start Last Admin Trade Name Freq PRN Reason Stop Dose Admin Calcium Gluconate 2 gm in 100 mls @ 50 mls/hr 09/18/22 00:24 09/18/22 01:21 Calcium Gluconate IV 09/18/22 02:23 400 mls/hr ONCE ONE Administration Discontinued Medications Generic Name Dose Route Start Last Admin Trade Name Freq PRN Reason Stop Dose Admin Dextrose 50 gm 09/18/22 00:22 09/18/22 01:17 Dextrose 50 % 25 Gm/50 Ml Syringe IVPUSH 09/18/22 00:23 50 gm ONCE ONE Administration Insulin Human Regular 5 unit 09/18/22 00:22 09/18/22 01:15 Insulin Regular, Human 100 Unit/Ml 3 Ml Vial IVPUSH 09/18/22 00:23 5 unit ONCE ONE Administration Iohexol 85 ml 09/18/22 01:00 09/18/22 01:01 Iohexol 350 Mg/Ml 100 Ml Infus..Btl IV 09/18/22 01:01 85 ml ONCE ONE Administration Ondansetron HCl 4 mg 09/17/22 20:36 09/17/22 22:18 Ondansetron Odt 4 Mg Tab.Rapdis TRANSLINGU 09/17/22 20:37 4 mg ONCE ONE Administration Sodium Zirconium Cyclosilicate 10 gm 09/18/22 00:22 09/18/22 01:12 Sodium Zirconium Cyclosilicate 10 Gm Powd.Pack PO 09/18/22 00:23 10 gm ONCE ONE Administration MDM - Abdominal Pain Lab Data Result diagrams: 09/17/22 20:39 09/17/22 22:32 Labs: Lab Results 09/17/22 09/17/22 09/17/22 Range/Units 20:39 20:39 22:32 WBC 11.8 H (4.8-10.8) X10*3/uL RBC 4.02 L (4.20-5.50) X10*6/uL Hgb 12.0 (12.0-16.0) g/dl Hct 37.3 (37.0-47.0) % MCV 92.8 (80.0-98.0) fL MCH 29.9 (27.0-33.0) pg MCHC 32.2 (31.0-35.0) g/dl RDW 14.6 (11.0-16.0) % Plt Count 312 D (160-400) X10*3/uL MPV 10.2 (9.4-12.3) fL Immature Gran % (Auto) 0.5 H (0.0-0.4) % Neut % (Auto) 75.4 H (45-73) % Lymph % (Auto) 17.0 L (20-40) % Parmer % (Auto) 6.5 (2-11) % Eos % (Auto) 0.3 (0-4) % Baso % (Auto) 0.3 (0-2) % Lymph # (Auto) 2.0 (1.2-4.9) X10*3/uL Parmer # (Auto) 0.8 (0.1-1.2) X10*3/uL Eos # (Auto) 0.0 (0.0-0.4) X10*3/uL Baso # (Auto) 0.0 (0.0-0.2) X10*3/uL Abs Immat Gran (auto) 0.06 H (0.00-0.03) X10*3/uL Absolute Neuts (auto) 8.9 H (2.0-8.3) x10*3/uL Absolute Nucleated RBC 0.000 (0.0-0.012) X10*3/uL Nucleated RBC % (auto) 0.0 (0.0-0.2) /100WBC Sodium 141 (135-145) mmol/L Potassium 5.9 H D 5.7 H (3.3-5.1) mmol/L Chloride 105 (96-108) mmol/L Carbon Dioxide 24 (22-29) mmol/L Anion Gap 18 (12-20) BUN 22 H (9-16) mg/dL Creatinine 1.21 (0.5-1.4) mg/dL Estim Creat Clear Calc 36.1 Estimated GFR 45 Random Glucose 136 H (60-115) mg/dL Calcium 9.8 D (8.4-10.2) mg/dL Magnesium 2.1 (1.6-2.6) mg/dL Total Bilirubin 0.4 (0.0-1.0) mg/dL Direct Bilirubin 0.2 (0.0-0.5) mg/dL AST 17 D (5-31) U/L ALT 9 (0-31) U/L Alkaline Phosphatase 70 (39-117) U/L Total Protein 7.5 (6.5-8.0) g/dL Albumin 4.6 (3.5-5.0) g/dL Lipase 27 (8-78) U/L Urine Color Urine Appearance Urine pH (5.0-9.0) Ur Specific [place] (1.005-1.025) Urine Protein (Neg-Trace) mg/dL Urine Glucose (UA) (Negative) mg/dL Urine Ketones (Negative) mg/dL Urine Blood (Negative) Urine Nitrite (Negative) Ur Leukocyte Esterase (Negative) 09/18/22 Range/Units 00:15 WBC (4.8-10.8) X10*3/uL RBC (4.20-5.50) X10*6/uL Hgb (12.0-16.0) g/dl Hct (37.0-47.0) % MCV (80.0-98.0) fL MCH (27.0-33.0) pg MCHC (31.0-35.0) g/dl RDW (11.0-16.0) % Plt Count (160-400) X10*3/uL MPV (9.4-12.3) fL Immature Gran % (Auto) (0.0-0.4) % Neut % (Auto) (45-73) % Lymph % (Auto) (20-40) % Parmer % (Auto) (2-11) % Eos % (Auto) (0-4) % Baso % (Auto) (0-2) % Lymph # (Auto) (1.2-4.9) X10*3/uL Parmer # (Auto) (0.1-1.2) X10*3/uL Eos # (Auto) (0.0-0.4) X10*3/uL Baso # (Auto) (0.0-0.2) X10*3/uL Abs Immat Gran (auto) (0.00-0.03) X10*3/uL Absolute Neuts (auto) (2.0-8.3) x10*3/uL Absolute Nucleated RBC (0.0-0.012) X10*3/uL Nucleated RBC % (auto) (0.0-0.2) /100WBC Sodium (135-145) mmol/L Potassium (3.3-5.1) mmol/L Chloride (96-108) mmol/L Carbon Dioxide (22-29) mmol/L Anion Gap (12-20) BUN (9-16) mg/dL Creatinine (0.5-1.4) mg/dL Estim Creat Clear Calc Estimated GFR Random Glucose (60-115) mg/dL Calcium (8.4-10.2) mg/dL Magnesium (1.6-2.6) mg/dL Total Bilirubin (0.0-1.0) mg/dL Direct Bilirubin (0.0-0.5) mg/dL AST (5-31) U/L ALT (0-31) U/L Alkaline Phosphatase (39-117) U/L Total Protein (6.5-8.0) g/dL Albumin (3.5-5.0) g/dL Lipase (8-78) U/L Urine Color Yellow Urine Appearance Clear Urine pH 5.0 (5.0-9.0) Ur Specific [place] 1.025 (1.005-1.025) Urine Protein Negative (Neg-Trace) mg/dL Urine Glucose (UA) Negative (Negative) mg/dL Urine Ketones Trace (Negative) mg/dL Urine Blood Negative (Negative) Urine Nitrite Negative (Negative) Ur Leukocyte Esterase Negative (Negative) Imaging Data CT scan - abdomen: Radiologist's impression: FINDINGS: LUNG BASES: Mild calcific at the sclerosis in the coronary arteries. There is a small 3 mm subpleural round solid pulmonary nodule in the anterobasal segment of the left lower lobe laterally near the major fissure (image 29 of series 502). This region was not included on multiple CTs of the abdomen and pelvis dating back to 2018. Lung bases are otherwise clear. Small sliding-type hiatal hernia. LIVER, GALLBLADDER, AND BILIARY TREE: The liver is normal in size, shape, and attenuation. No focal hepatic lesion or biliary ductal dilatation is present. The gallbladder is unremarkable with no evidence of radiopaque gallstones, gallbladder wall thickening, or obvious pericholecystic inflammatory changes.? PANCREAS: Moderate fatty atrophy. No focal lesions. No pancreatic ductal dilatation. SPLEEN: Unremarkable.? ADRENAL GLANDS: Unremarkable.? KIDNEYS AND URETERS: The kidneys are normal in size, shape, and attenuation. No hydronephrosis, hydroureter, or calculi seen. No perinephric stranding. ? BLADDER: Unremarkable.? GASTROINTESTINAL TRACT: There is marked small bowel dilatation in the central abdomen where small bowel loop passes the region of abnormal soft tissue in the central small bowel mesentery, possibly due to local tumor involvement or adhesions. The bowel in this region is dilated up to 4 cm in diameter with fecalization. Nearby anastomotic luther are present within the small bowel in the right upper quadrant, also adjacent to the region of abnormal soft tissue thickening in the central mesentery. The distal small bowel is decompressed. As seen in a loop of small bowel in the right upper quadrant on image 25/ of series 5 and / of series 3, there is a 1.5 x 2 cm focus of nodular wall thickening which may correspond to a small bowel lesion. Remaining left hemicolon is unremarkable. Trace amount of free fluid in the pelvis. Small hiatal hernia. ABDOMINAL WALL: Small fat-containing incisional hernias in the anterior abdomen without significant bowel involvement.? LYMPH NODES: Normal. VASCULAR: As previously noted on prior studies, there is abnormal soft tissue surrounding the small bowel mesentery in the central abdomen involving the SMA, SMV, and the branches. No occlusion, though the SMV is markedly narrowed in this region. Upper s calcifications are present in the abdominal aorta. No aneurysmal dilatation. PELVIC VISCERA: The uterus and adnexa are unremarkable.? OSSEOUS STRUCTURES: Mild multilevel degenerative spondylosis in the thoracolumbar spine. Mild osteoarthritis in the hips. No acute osseous findings.? CT/CT abdomen pelvis w IV con IMPRESSION: 1.? High-grade small bowel obstruction in the central abdomen where a loop of small bowel passes the region of abnormal soft tissue thickening in the central small bowel mesentery, potentially due to local tumor involvement or adhesions. 2.? A 1.5 x 2 cm focus of nodular wall thickening in the small bowel in the right upper quadrant, potentially corresponding to a small bowel lesion. 3.? A 3 mm solid pulmonary nodule in the left lower lobe. This region was not included on multiple CTs of the abdomen and pelvis dating back to 2018. Consider follow-up per oncology protocol. 4.? Small sliding-type hiatal hernia. ? Fleischner guidelines were followed. Critical Care Time Critical Care Time Critical Care Time: Yes Total Critical Care Time: 60 Attestation: I have personally provided critical care time. Time includes review of lab data, radiology results, discussion with consultants, and monitoring for potential decompensation. Intervention performed as documented. Discharge Plan Discharge Clinical Impression: Small bowel obstruction, Acute hyperkalemia Patient Disposition: Admitted As Inpatient
[2022-09-17 22:50] LABS: Potassium 5.7 mmol/L (3.3-5.1)
[2022-09-18] VITALS (7 sets, daily range): BP systolic 122–135; BP diastolic 60–73; PULSE 66–94; RESP 13–20; TEMP 36.4–37.2; O2SAT 96–98
[2022-09-18 00:25] LABS: Appearance Urine Clear; Color Urine Yellow; Glucose Urine UA Negative (Negative); Leukocyte Esterase Urine Negative (Negative); Nitrite Urine Negative (Negative); Specific Gravity - Urine 1.025 (1.005-1.025); Urine Blood Negative (Negative); Urine Ketones Trace mg/dL (Negative); Urine Protein Negative (Neg-Trace)
[2022-09-18] MEDS: iohexoL 350 MG/ML 100 ML INFUS..BTL 85 ML IV (01:01)
[2022-09-18] MEDS: Sodium Zirconium Cyclosilicate 10 GM POWD.PACK PO (01:12)
[2022-09-18] MEDS: Insulin Regular, Human 100 UNIT/ML 3 ML VIAL IVPUSH (01:15)
[2022-09-18] MEDS: Dextrose 50 % 25 GM/50 ML SYRINGE IVPUSH (01:17)
[2022-09-18] MEDS: Calcium Gluconate/NaCl,Iso-Osm 2 GM/100 ML PLAST..BAG IV (01:21)
[2022-09-18] MEDS: Morphine Sulfate 4 MG/ML CARTRIDGE IVPUSH (01:59)
[2022-09-18] MEDS: ondansetron HCL 4 MG/2 ML VIAL IVPUSH (01:59)
[2022-09-18] MEDS: Prochlorperazine Edisylate 10 MG/2 ML VIAL IVPUSH (02:10)
--- NOTE | 2022-09-18 02:51 | PC.NURSE ---
p a&ox3, vss, med rec completed w pt at bedside.
[2022-09-18] MEDS: Lidocaine HCl 4 % MPF w/MADgic 5 ML AMPUL 1 APPL TOPICAL (02:58)
[2022-09-18] MEDS: Lactated Ringers 1,000 ML 100 ML IVCONT ×3 (02:59→23:43)
[2022-09-18 03:04] LABS: Potassium 4.1 mmol/L (3.3-5.1)
[2022-09-18 03:06] LABS: Lactic Acid 2.8 mmol/L (0.5-2.0)
--- NOTE | 2022-09-18 04:04 | PC.NURSE ---
NGTube placed at this mickie. Pt tolerated procedure well. Initial placement verified by xray and it was noted that the NGTube need ed to be advanced, per Dr. Jean-Baptiste. NGTube was advanced approximately 8 inches. Placement was re-verified by Xray and NGTube placed to low wall suctions, continuous.
[2022-09-18 04:46] LABS: Reflex Lactate? Lactic Acid Added
[2022-09-18 05:46] LABS: MANUAL DIFF FLAG NO
[2022-09-18 05:50] LABS: Basophils Percent Auto 0.1 % (0-2); Eosinophils Percent Auto 0.1 % (0-4); Hematocrit 36.8 % (37.0-47.0); Hemoglobin 11.6 g/dl (12.0-16.0); Imm Gran Abs Auto 0.04 X10*3/uL (0.00-0.03); Imm Gran Pct Auto 0.4 % (0.0-0.4); Lymphocytes Absolute Auto 0.8 X10*3/uL (1.2-4.9); Mean Corpuscular HGB Conc 31.5 g/dl (31.0-35.0); Mean Corpuscular Hemoglobin 30.2 pg (27.0-33.0); Mean Corpuscular Volume 95.8 fL (80.0-98.0); Mean Platelet Volume 11.1 fL (9.4-12.3); Monocytes Absolute Auto 0.4 X10*3/uL (0.1-1.2); Monocytes Percent Auto 4.3 % (2-11); Neutrophils Absolute Auto 8.9 x10*3/uL (2.0-8.3); Neutrophils Percent Auto 87.1 % (45-73); Platelet Count 284 X10*3/uL (160-400); Red Blood Count 3.84 X10*6/uL (4.20-5.50); Red Cell Distribution Width 14.6 % (11.0-16.0); White Blood Count 10.2 X10*3/uL (4.8-10.8)
[2022-09-18 05:58] LABS: ~Lactic Acid-LAB USE ONLY 1.8 mmol/L (0.5-2.0)
[2022-09-18 06:03] LABS: Anion Gap 19 (12-20); Blood Urea Nitrogen 18 mg/dL (9-16); Calcium 10.3 mg/dL (8.4-10.2); Carbon Dioxide 24 mmol/L (22-29); Chloride 103 mmol/L (96-108); Creatinine Clr Calc Pharmacy 42.8; Estimated Glomerular Filt Rate 55; Glucose Random 214 mg/dL (60-115); Potassium 5.3 mmol/L (3.3-5.1); Sodium 141 mmol/L (135-145)
[2022-09-18 06:06] LABS: COVID-19 Test Negative (Negative); IDNOW Serial# BCCEAD1C
--- NOTE | 2022-09-18 06:28 | PM.IMHP ---
History of Present Illness Date of Service: 09/18/22 Chief Complaint: Abdominal pain 62-year-old female with past medical history of metastatic carcinoid tumor/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 status post surgical intervention and currently on medications, GERD, paroxysmal AFib on Eliquis,-D deficiency, among others who presents to the hospital with complaints of significant abdominal pain that started the night prior. Patient reports severe, diffuse abdominal pain associated with nausea, vomiting, nonradiating. reports no fever no chills. Reports last BM was night prior,with no flatus. Denies any chest pain, no headache, no change in vision, no chest pain, no shortness of breath, no urinary symptoms and no lower extremity edema. On arrival to the ED patient hemodynamically stable to significant abnormal vitals Labs are significant for hemoglobin of 11.6, hematocrit of 36.8, potassium 5.9 with no EKG changes, lactic acid of 2.8 repeat of 1.8 after IV fluid. UA negative. Abdomen pelvic CT shows high-grade small-bowel obstruction in the central abdomen potentially due to local tumor involvement or adhesions. A 1.5 x 2 cm focus of nodular wall thickening in the small bowel in the right upper quadrant potentially corresponding to a small bowel lesion. Yaritza 3 mm solid pulmonary nodule in the left upper lobe Case was discussed with General surgery, recommends admitting to Medicine, place an NG tube and they will follow in consult Review of Systems Review of Systems: Yes all other systems are reviewed and are negative [facility] Medical History Afib Anemia Arthritis Asthma Colon polyp Constipation Diabetes Environmental allergies Gastric polyp GERD (gastroesophageal reflux disease) Hyperlipemia IBS (irritable bowel syndrome) Lipid disorder Neuroendocrine neoplasm of gastrointestinal tract Overactive bladder Paroxysmal atrial fibrillation Vitamin D deficiency Family History Father Afib Pneumonia Brother Afib Heart disease Brother Heart disease Mother Unknown family medical history Surgical History History of colonoscopy History of esophagogastroduodenoscopy Social History Household Members: None Housing: House Housing Other:: [facility] Alcohol intake: never Patient Tobacco Use Status: Never used Tobacco e-Cigarette/Vaping Use: Never Used Advance Directives: No Advance Directives Information Provided: Yes service: No Current occupational status: disabled Cognitive needs: No Hearing needs: No Vision needs: Yes Meds Allergies Allergy/AdvReac Type Severity Reaction Status Date / Time Erythromycin Allergy Unknown GI upset, Verified 09/17/22 20:30 increases pain erythromycin base AdvReac Intermediate GI UPSET Verified 09/17/22 20:30 [Erythromycin Base] Motrin AdvReac Unknown GI Upset, Verified 09/17/22 20:30 increases pain Chocolate Allergy Mild RASH Uncoded 06/07/22 13:04 Environmental Allergy Unknown Unknown Uncoded 06/07/22 13:04 Active Medications: Current Medications Acetaminophen (Acetaminophen Supp 650 Mg Supp.Rect) 650 mg NC Q6H PRN PRN Reason: Pain, Mild (Pain Scale 1-3) Lactated Ringer's (Lr) 1,000 mls @ 100 mls/hr IVCONT .Q10H [facility] Last Admin: 09/18/22 02:59 Dose: 100 mls/hr Morphine Sulfate (Morphine Sulfate 4 Mg/Ml Cartridge) 4 mg IVPUSH Q4H PRN; Protocol PRN Reason: Pain, Severe (Pain Scale 7-10) Ondansetron HCl (Ondansetron Hcl 4 Mg/2 Ml Vial) 4 mg IVPUSH Q8H PRN PRN Reason: Nausea and Vomiting Sodium Chloride (0.9 % Sodium Chloride Flush 3 Ml Syringe) 3 ml IVFLUSH QSHIFT [facility] Home Medications Medication Instructions Recorded Confirmed Last Taken Type albuterol 90 mcg/actuation aerosol 90 mcg inhalation NEEDED PRN 08/11/20 09/18/22 Unknown History inhaler Bronchospasm loperamide 2 mg capsule 2 mg PO Q6H PRN Diarrhea 08/11/20 09/18/22 Unknown History triamcinolone acetonide 0.1 % 1 appl dental QID 03/30/22 08/02/22 Unknown History dental paste lorazepam 0.5 mg tablet 0.5 mg PO DIRECTED 07/14/22 08/02/22 Unknown History Physical Exam Vital Signs and Narrative: Vital Signs: Last Vital Signs Temp 97.5 F 09/18/22 05:29 Pulse 66 09/18/22 05:29 Resp 13 09/18/22 05:29 BP 125/65 09/18/22 05:29 Pulse Ox 97 09/18/22 05:29 O2 Del Method 09/18/22 05:29 BMI result Body Mass Index 27.1 Const: General: cooperative and no acute distress Orientation/consciousness: patient oriented x3 Eyes: General: appearance normal, both eyes and all related structures Resp: Effort & Inspection: normal respiratory effort Auscultation: clear to auscultation bilaterally Cardio: Rate: regular rate Rhythm: regular rhythm GI: Other: Abdomen is soft, slightly distended, tender to palpation, hyperactive bowel sounds Palpation (GI): Soft to palpation Skin: General skin exam: no rashes or lesions noted Neuro: General: patient oriented x3 Cognition (Neuro): normal cognition Extrem: General: Yes normal to inspection and Yes no pedal edema Results Labs CBC and Chem 7: 09/18/22 05:09 09/18/22 05:09 Labs: Laboratory Results - last 24 hr 09/17/22 09/17/22 09/18/22 20:39 20:39 00:15 MCV 92.8 MCH 29.9 MCHC 32.2 RDW 14.6 Plt Count 312 D MPV 10.2 Immature Gran % (Auto) 0.5 H Neut % (Auto) 75.4 H Lymph % (Auto) 17.0 L [place] % (Auto) 6.5 Eos % (Auto) 0.3 Baso % (Auto) 0.3 Lymph # (Auto) 2.0 [place] # (Auto) 0.8 Eos # (Auto) 0.0 Baso # (Auto) 0.0 Abs Immat Gran (auto) 0.06 H Absolute Neuts (auto) 8.9 H Absolute Nucleated RBC 0.000 Nucleated RBC % (auto) 0.0 Anion Gap 18 Estim Creat Clear Calc 36.1 Estimated GFR 45 Random Glucose 136 H Lactic Acid Lactic Acid F/U @ 2Hr Calcium 9.8 D Magnesium 2.1 Total Bilirubin 0.4 Direct Bilirubin 0.2 AST 17 D ALT 9 Alkaline Phosphatase 70 Total Protein 7.5 Albumin 4.6 Lipase 27 Urine Color Yellow Urine Appearance Clear Urine pH 5.0 Ur Specific [place] 1.025 Urine Protein Negative Urine Glucose (UA) Negative Urine Ketones Trace Urine Blood Negative Urine Nitrite Negative Ur Leukocyte Esterase Negative COVID-19 (JANET) COVID-19 Clin Com 09/18/22 09/18/2209/18/22 02:39 05:09 05:09 MCV 95.8 MCH 30.2 MCHC 31.5 RDW 14.6 Plt Count 284 MPV 11.1 Immature Gran % (Auto) 0.4 Neut % (Auto) 87.1 H Lymph % (Auto) 8.0 L [place] % (Auto) 4.3 Eos % (Auto) 0.1 Baso % (Auto) 0.1 Lymph # (Auto) 0.8 L [place] # (Auto) 0.4 Eos # (Auto) 0.0 Baso # (Auto) 0.0 Abs Immat Gran (auto) 0.04 H Absolute Neuts (auto) 8.9 H Absolute Nucleated RBC 0.000 Nucleated RBC % (auto) 0.0 Anion Gap 19 Estim Creat Clear Calc 42.8 Estimated GFR 55 Random Glucose 214 H Lactic Acid 2.8 H* Lactic Acid F/U @ 2Hr Calcium 10.3 H Magnesium Total Bilirubin Direct Bilirubin AST ALT Alkaline Phosphatase Total Protein Albumin Lipase Urine Color Urine Appearance Urine pH Ur Specific [place] Urine Protein Urine Glucose (UA) Urine Ketones Urine Blood Urine Nitrite Ur Leukocyte Esterase COVID-19 (JANET) COVID-[employer] 09/18/22 09/18/22 05:09 05:48 MCV MCH MCHC RDW Plt Count MPV Immature Gran % (Auto) Neut % (Auto) Lymph % (Auto) [place] % (Auto) Eos % (Auto) Baso % (Auto) Lymph # (Auto) [place] # (Auto) Eos # (Auto) Baso # (Auto) Abs Immat Gran (auto) Absolute Neuts (auto) Absolute Nucleated RBC Nucleated RBC % (auto) Anion Gap Estim Creat Clear Calc Estimated GFR Random Glucose Lactic Acid Lactic Acid F/U @ 2Hr 1.8 Calcium Magnesium Total Bilirubin Direct Bilirubin AST ALT Alkaline Phosphatase Total Protein Albumin Lipase Urine Color Urine Appearance Urine pH Ur Specific [place] Urine Protein Urine Glucose (UA) Urine Ketones Urine Blood Urine Nitrite Ur Leukocyte Esterase COVID-19 (JANET) Negative COVID-19 [facility] Com See Note Imaging Radiologist's Impressions: Impressions Abdomen/Pelvis CT 09/18/22 01:00 IMPRESSION: 1. High-grade small bowel obstruction in the central abdomen where a loop of small bowel passes the region of abnormal soft tissue thickening in the central small bowel mesentery, potentially due to local tumor involvement or adhesions. 2. A 1.5 x 2 cm focus of nodular wall thickening in the small bowel in the right upper quadrant, potentially corresponding to a small bowel lesion. 3. A 3 mm solid pulmonary nodule in the left lower lobe. This region was not included on multiple CTs of the abdomen and pelvis dating back to 2018. Consider follow-up per oncology protocol. 4. Small sliding-type hiatal hernia. Fleischner guidelines were followed. KUB X-Ray 09/18/22 03:56 IMPRESSION: 1. Enteric tube tip terminates in the stomach with side-port at the diaphragmatic hiatus. Consider advancing another 3 cm. 2. Dilated loops of small bowel in the central abdomen. Assessment and Plan (1) Small bowel obstruction: Status: Acute (2) Acute hyperkalemia: Status: Acute Plan This is a 62-year-old female with past medical history of paroxysmal AFib, 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 of log chipper tract, history of carcinoid tumor presents to the hospital with complaints of abdominal pain found to have small-bowel obstruction # small-bowel obstruction - high-grade small-bowel obstruction likely in the setting of underlying gastrointestinal tumor - will make patient NPO - NG tube - general surgery consulted - antiemetics # acute hyperkalemia - asymptomatic, no EKG changes - treated in the ED - follow BMP # P. Afib - rate controlled - hold Eliquis for potential surgical intervention Will continue all her other chronic medications DVT prophylaxis: SCDs Given patient's small-bowel obstruction patient will be admitted require minimum 2 night inpatient hospital stay for further management and monitoring Quality Stroke Does the patient have a stroke diagnosis?: No VTE Prior VTE?: No VTE Risk Level:: Medical - moderate - high VTE Device Contraindication: N/A - Device Ordered VTE Drug Contraindication: Treatment Not Indicated
--- NOTE | 2022-09-18 08:01 | PM.CNGS ---
History of Present Illness Consult details Consult date: 09/18/22 Reason for consult: abdominal pain Narrative: The patient is a 62-year-old woman who underwent operative resection of a well-differentiated 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 tumor by Dr. Sanchez on 04/15/2019 that involved the small bowel mesentery and required a small bowel resection due to expected devascularization during resection of the mesentery. She has been followed by Dr. Ellis and having increasing issues of constipation and presented to the emergency room several hours ago with abdominal pain. CT showed a small-bowel obstruction and a nasogastric tube was placed. I was consulted to help coordinate her care. The patient reports chronic bowel issues and noted that they worsened yesterday and she began to experience severe cramping abdominal pain. While waiting in the emergency room and during her evaluation, she reports vomit. She notes her last bowel movement was on Monday and is unable to remember when she passed any gas. She notes that her pain is improved with NG tube drainage and otherwise denies any chest pain, difficulty breathing or shortness of breath. Review of Systems Review of Systems: Yes all other systems are reviewed and are negative Constitutional: Constitutional: Reports as per HPI [facility] Past Medical History Medical History Afib Anemia Arthritis Asthma Colon polyp Constipation Diabetes Environmental allergies Gastric polyp GERD (gastroesophageal reflux disease) Hyperlipemia IBS (irritable bowel syndrome) Lipid disorder Neuroendocrine neoplasm of gastrointestinal tract Overactive bladder Paroxysmal atrial fibrillation Vitamin D deficiency Family History Family History Father Afib Pneumonia Brother Afib Heart disease Brother Heart disease Mother Unknown family medical history Surgical History Surgical History History of colonoscopy History of esophagogastroduodenoscopy Social History Social History Household Members: None Housing: Apartment Housing Other:: [facility] Do you presently have 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 or 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 ([employer] for [employer] for laundry, and cleaning. [employer] for meal delivery.) Alcohol intake: never Patient Tobacco Use Status: Never used Tobacco e-Cigarette/Vaping Use: Never Used Second Hand Smoke Exposure: No service: No Current occupational status: disabled Cognitive needs: No Hearing needs: No Vision needs: Yes Meds Allergies Allergy/AdvReac Type Severity Reaction Status Date / Time Erythromycin Allergy Unknown GI upset, Verified 09/17/22 20:30 increases pain erythromycin base AdvReac Intermediate GI UPSET Verified 09/17/22 20:30 [Erythromycin Base] Motrin AdvReac Unknown GI Upset, Verified 09/17/22 20:30 increases pain Chocolate Allergy Mild RASH Uncoded 06/07/22 13:04 Environmental Allergy Unknown Unknown Uncoded 06/07/22 13:04 Active Medications: Current Medications Acetaminophen (Acetaminophen Supp 650 Mg Supp.Rect) 650 mg MS Q6H PRN PRN Reason: Pain, Mild (Pain Scale 1-3) Lactated Ringer's (Lr) 1,000 mls @ 100 mls/hr IVCONT .Q10H [facility] Last Admin: 09/18/22 02:59 Dose: 100 mls/hr Morphine Sulfate (Morphine Sulfate 4 Mg/Ml Cartridge) 4 mg IVPUSH Q4H PRN; Protocol PRN Reason: Pain, Severe (Pain Scale 7-10) Ondansetron HCl (Ondansetron Hcl 4 Mg/2 Ml Vial) 4 mg IVPUSH Q8H PRN PRN Reason: Nausea and Vomiting Sodium Chloride (0.9 % Sodium Chloride Flush 3 Ml Syringe) 3 ml IVFLUSH QSHIFT [facility] Home Medications Medication Instructions Recorded Confirmed Last Taken Type loperamide 2 mg capsule 2 mg PO Q6H PRN Diarrhea 08/11/20 09/18/22 Unknown History albuterol sulfate 90 mcg/actuation 2 puff inhalation Q4-6H PRN 09/18/22 09/18/22 Unknown History aerosol inhaler Shortness Of Breath Or Wheezing cholecalciferol (vitamin D3) 25 1,000 unit PO BEDTIME 09/18/22 09/18/22 09/16/22 History mcg (1,000 unit) capsule ferrous sulfate 325 mg (65 mg 325 mg PO BID 09/18/22 09/18/22 09/17/22 History iron) tablet loratadine 10 mg tablet 10 mg PO BEDTIME 09/18/22 09/18/22 09/16/22 History montelukast 10 mg tablet 10 mg PO BEDTIME 09/18/22 09/18/22 09/16/22 History omeprazole 20 mg capsule,delayed 20 mg PO DAILY@0630 09/18/22 09/18/22 09/16/22 History release oxybutynin chloride 10 mg 10 mg PO BEDTIME 09/18/22 09/18/22 09/16/22 History tablet,extended release 24 hr simvastatin 20 mg tablet 20 mg PO BEDTIME 09/18/22 09/18/22 09/16/22 History Physical Exam Vital Signs: Vital Signs: Last Vital Signs Temp 97.5 F 09/18/22 05:29 Pulse 66 09/18/22 05:29 Resp 13 09/18/22 05:29 BP 125/65 09/18/22 05:29 Pulse Ox 97 09/18/22 05:29 O2 Del Method 09/18/22 05:29 BMI result Body Mass Index 27.1 The patient is non-toxic & in good spirits NC/AT, PERRLA, EOMI Mood, affect & judgment all appear appropriate Sclera anicteric conjunctiva pink and moist Oropharynx is clear with no aphthous ulcers, Mallampati class 4, mucous membranes moist Neck is supple with no obvious adenopathy and no supraclavicular adenopathy is noted Heart is regular, normal S1-S2 no rubs or murmurs Lungs are clear and equal anteriorly with no audible wheezing, rubs or dullness to percussion Abdomen is overweight with no demonstrable hernias, no R/R/G is present, but diffuse tympany is noted with no peritoneal sign t percussion. No HSM, rebound, rigidity, guarding, masses or bruits are present. Rectal exam is deferred Skin has good turgor and is free of rashes Extremities free of cyanosis clubbing edema Results Labs Result diagrams: 09/18/22 05:09 09/18/22 05:09 Labs: Abnormal lab results 09/17/22 09/17/22 09/17/22 Range/Units 20:39 20:39 22:32 WBC 11.8 H (4.8-10.8) X10*3/uL RBC 4.02 L (4.20-5.50) X10*6/uL Hgb (12.0-16.0) g/dl Hct (37.0-47.0) % Immature Gran % (Auto) 0.5 H (0.0-0.4) % Neut % (Auto) 75.4 H (45-73) % Lymph % (Auto) 17.0 L (20-40) % Lymph # (Auto) (1.2-4.9) X10*3/uL Abs Immat Gran (auto) 0.06 H (0.00-0.03) X10*3/uL Absolute Neuts (auto) 8.9 H (2.0-8.3) x10*3/uL Potassium 5.9 H D 5.7 H (3.3-5.1) mmol/L BUN 22 H (9-16) mg/dL Random Glucose 136 H (60-115) mg/dL Lactic Acid (0.5-2.0) mmol/L Calcium (8.4-10.2) mg/dL 09/18/22 09/18/22 09/18/22 Range/Units 02:39 05:09 05:09 WBC (4.8-10.8) X10*3/uL RBC 3.84 L (4.20-5.50) X10*6/uL Hgb 11.6 L (12.0-16.0) g/dl Hct 36.8 L (37.0-47.0) % Immature Gran % (Auto) (0.0-0.4) % Neut % (Auto) 87.1 H (45-73) % Lymph % (Auto) 8.0 L (20-40) % Lymph # (Auto) 0.8 L (1.2-4.9) X10*3/uL Abs Immat Gran (auto) 0.04 H (0.00-0.03) X10*3/uL Absolute Neuts (auto) 8.9 H (2.0-8.3) x10*3/uL Potassium 5.3 H D (3.3-5.1) mmol/L BUN 18 H (9-16) mg/dL Random Glucose 214 H (60-115) mg/dL Lactic Acid 2.8 H* (0.5-2.0) mmol/L Calcium 10.3 H (8.4-10.2) mg/dL Short CBC 09/17/22 09/18/22 Range/Units 20:39 05:09 WBC 11.8 H 10.2 (4.8-10.8) X10*3/uL Hgb 12.0 11.6 L (12.0-16.0) g/dl Hct 37.3 36.8 L (37.0-47.0) % Plt Count 312 D 284 (160-400) X10*3/uL BMP 09/17/22 09/17/22 09/18/22 20:39 22:32 02:40 Sodium 141 Potassium 5.9 H D 5.7 H 4.1 D Chloride 105 Carbon Dioxide 24 BUN 22 H Creatinine 1.21 Calcium 9.8 D 09/18/22 05:09 Sodium 141 Potassium 5.3 H D Chloride 103 Carbon Dioxide 24 BUN 18 H Creatinine 1.02 Calcium 10.3 H Liver Function 09/17/22 Range/Units 20:39 Total Bilirubin 0.4 (0.0-1.0) mg/dL Direct Bilirubin 0.2 (0.0-0.5) mg/dL AST 17 D (5-31) U/L ALT 9 (0-31) U/L Alkaline Phosphatase 70 (39-117) U/L Albumin 4.6 (3.5-5.0) g/dL Urine 09/18/22 Range/Units 00:15 Urine Color Yellow Urine Appearance Clear Urine pH 5.0 (5.0-9.0) Ur Specific [place] 1.025 (1.005-1.025) Urine Protein Negative (Neg-Trace) mg/dL Urine Glucose (UA) Negative (Negative) mg/dL All other labs normal. Imaging Abdomen CT scan report/results: report reviewed and image reviewed CT scan - pelvis: report reviewed and image reviewed Additional studies: The patient has a high-grade partial small-bowel obstruction with feculization of stomach and small bowel contents and masses that likely represent recurrent and metastatic carcinoid in the mesentery & bowel. At this time, the NG is not draining much, so I have written an order for it to be advance and challenged regarding output to decompress the stomach and small bowel. There are findings on CT concerning for metastatic recurrence and the patient may require exploration and resection. Recommend getting input from Oncology and case there is an unexpected medical oncology option, but I believe this is unlikely. Will follow. Assessment and Plan (1) Metastatic carcinoid tumor: Status: Chronic (2) Small bowel obstruction: Status: Acute (3) Paroxysmal atrial fibrillation: Status: Acute (4) Neuroendocrine neoplasm of gastrointestinal tract: Status: Acute (5) Lipid disorder: Status: Acute Procedures Date of Service Date of Service: 09/18/22
--- NOTE | 2022-09-18 10:12 | PHA.MEDREC ---
Pharmacy Consult ? Medication Reconciliation Pharmacy has completed the medication reconciliation.
[2022-09-18] MEDS: Acetaminophen Supp 650 MG SUPP.RECT PR (11:41)
--- NOTE | 2022-09-18 15:40 | P.DS_ITS ---
DS: Providers Provider Date of admission: 09/18/22 02:26 Primary care physician: Unknown Physician Consults: 09/18/22 02:26 Consult to General Surgery Routine Consulting Provider: Manuel Johnson Reason for consultation: SBO Has provider been notified: Yes 09/18/22 15:16 Consult to Hematology / Oncology Routine Consulting Provider: Joshua Quinonez Reason for consultation: recurrent metastatic carcinoid Has provider been notified: No DS: Diagnosis Discharge Diagnosis (1) Metastatic carcinoid tumor: Status: Chronic (2) Small bowel obstruction: Status: Acute (3) Paroxysmal atrial fibrillation: Status: Acute (4) Neuroendocrine neoplasm of gastrointestinal tract: Status: Acute (5) Lipid disorder: Status: Acute DS: Summary Hospital Course Hospital Course: Chief Complaint: Abdominal pain 62-year-old female with past medical history of metastatic carcinoid tumor/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 status post surgical intervention and currently on medications, GERD, paroxysmal AFib on Eliquis,-D deficiency, among others who presents to the hospital with complaints of significant abdominal pain that started the night prior.? Patient reports severe, diffuse abdominal pain associated with nausea, vomiting, nonradiating.? reports no fever no chills.? Reports last BM was night prior,with no flatus. Denies any chest pain, no headache, no change in vision, no chest pain, no shortness of breath, no urinary symptoms and no lower extremity edema.? On arrival to the ED patient hemodynamically stable to significant abnormal vitals Labs are significant for hemoglobin of 11.6, hematocrit of 36.8, potassium 5.9 with no EKG changes, lactic acid of 2.8 repeat of 1.8 after IV fluid.? UA negative.? Abdomen pelvic CT shows high-grade small-bowel obstruction in the central abdomen potentially due to local tumor involvement or adhesions.? A 1.5 x 2 cm focus of nodular wall thickening in the small bowel in the right upper quadrant potentially corresponding to a small bowel lesion.? Yaritza 3 mm solid pulmonary nodule in the left upper lobe Case was discussed with General surgery, recommends admitting to Medicine, place an NG tube and they will follow in consult Hospital course: Time Spent with Patient Time attestation: Total time spent providing and/or coordinating discharge services: Discharge coordination time: Greater than 30 minutes Quality: Safe Use of Opioids Does Pt have an Active Cancer Diagnosis on the Problem List?: Yes Opioid Measure Date for [facility] Report: 08/19/22 Opioid Measure Time for [facility] Report: 16:22 Quality: Stroke Does the patient have a stroke diagnosis?: No Physical Exam Vital Signs: Vital Signs: Last Vital Signs Temp 99.0 F 09/18/22 15:29 Pulse 91 09/18/22 15:29 Resp 18 09/18/22 15:29 BP 125/66 09/18/22 15:29 Pulse Ox 96 09/18/22 15:29 O2 Del Method 09/18/22 15:29 BMI result Body Mass Index 27.1 DS: Data Data Completed and Pending Labs on day of discharge: Laboratory Results - last 24 hr 09/17/22 09/17/22 09/17/22 20:39 20:39 22:32 WBC 11.8 H RBC 4.02 L Hgb 12.0 Hct 37.3 MCV 92.8 MCH 29.9 MCHC 32.2 RDW 14.6 Plt Count 312 D MPV 10.2 Immature Gran % (Auto) 0.5 H Neut % (Auto) 75.4 H Lymph % (Auto) 17.0 L [place] % (Auto) 6.5 Eos % (Auto) 0.3 Baso % (Auto) 0.3 Lymph # (Auto) 2.0 [place] # (Auto) 0.8 Eos # (Auto) 0.0 Baso # (Auto) 0.0 Abs Immat Gran (auto) 0.06 H Absolute Neuts (auto) 8.9 H Absolute Nucleated RBC 0.000 Nucleated RBC % (auto) 0.0 Sodium 141 Potassium 5.9 H D 5.7 H Chloride 105 Carbon Dioxide 24 Anion Gap 18 BUN 22 H Creatinine 1.21 Estim Creat Clear Calc 36.1 Estimated GFR 45 Random Glucose 136 H Lactic Acid Lactic Acid F/U @ 2Hr Calcium 9.8 D Magnesium 2.1 Total Bilirubin 0.4 Direct Bilirubin 0.2 AST 17 D ALT 9 Alkaline Phosphatase 70 Total Protein 7.5 Albumin 4.6 Lipase 27 Urine Color Urine Appearance Urine pH Ur Specific Tensed Urine Protein Urine Glucose (UA) Urine Ketones Urine Blood Urine Nitrite Ur Leukocyte Esterase COVID-19 (JANET) COVID-19 Clin Com 09/18/22 09/18/22 09/18/22 00:15 02:39 02:40 WBC RBC Hgb Hct MCV MCH MCHC RDW Plt Count MPV Immature Gran % (Auto) Neut % (Auto) Lymph % (Auto) [place] % (Auto) Eos % (Auto) Baso % (Auto) Lymph # (Auto) [place] # (Auto) Eos # (Auto) Baso # (Auto) Abs Immat Gran (auto) Absolute Neuts (auto) Absolute Nucleated RBC Nucleated RBC % (auto) Sodium Potassium 4.1 D Chloride Carbon Dioxide Anion Gap BUN Creatinine Estim Creat Clear Calc Estimated GFR Random Glucose Lactic Acid 2.8 H* Lactic Acid F/U @ 2Hr Calcium Magnesium Total Bilirubin Direct Bilirubin AST ALT Alkaline Phosphatase Total Protein Albumin Lipase Urine Color Yellow Urine Appearance Clear Urine pH 5.0 Ur Specific Tensed 1.025 Urine Protein Negative Urine Glucose (UA) Negative Urine Ketones Trace Urine Blood Negative Urine Nitrite Negative Ur Leukocyte Esterase Negative COVID-19 (JANET) [employer] 09/18/22 09/18/22 09/18/22 05:09 05:09 05:09 WBC 10.2 RBC 3.84 L Hgb 11.6 L Hct 36.8 L MCV 95.8 MCH 30.2 MCHC 31.5 RDW 14.6 Plt Count 284 MPV 11.1 Immature Gran % (Auto) 0.4 Neut % (Auto) 87.1 H Lymph % (Auto) 8.0 L [place] % (Auto) 4.3 Eos % (Auto) 0.1 Baso % (Auto) 0.1 Lymph # (Auto) 0.8 L [place] # (Auto) 0.4 Eos # (Auto) 0.0 Baso # (Auto) 0.0 Abs Immat Gran (auto) 0.04 H Absolute Neuts (auto) 8.9 H Absolute Nucleated RBC 0.000 Nucleated RBC % (auto) 0.0 Sodium 141 Potassium 5.3 H D Chloride 103 Carbon Dioxide 24 Anion Gap 19 BUN 18 H Creatinine 1.02 Estim Creat Clear Calc 42.8 Estimated GFR 55 Random Glucose 214 H Lactic Acid Lactic Acid F/U @ 2Hr 1.8 Calcium 10.3 H Magnesium Total Bilirubin Direct Bilirubin AST ALT Alkaline Phosphatase Total Protein Albumin Lipase Urine Color Urine Appearance Urine pH Ur Specific Tensed Urine Protein Urine Glucose (UA) Urine Ketones Urine Blood Urine Nitrite Ur Leukocyte Esterase COVID-19 (JANET) [employer] 09/18/22 05:48 WBC RBC Hgb Hct MCV MCH MCHC RDW Plt Count MPV Immature Gran % (Auto) Neut % (Auto) Lymph % (Auto) [place] % (Auto) Eos % (Auto) Baso % (Auto) Lymph # (Auto) [place] # (Auto) Eos # (Auto) Baso # (Auto) Abs Immat Gran (auto) Absolute Neuts (auto) Absolute Nucleated RBC Nucleated RBC % (auto) Sodium Potassium Chloride Carbon Dioxide Anion Gap BUN Creatinine Estim Creat Clear Calc Estimated GFR Random Glucose Lactic Acid Lactic Acid F/U @ 2Hr Calcium Magnesium Total Bilirubin Direct Bilirubin AST ALT Alkaline Phosphatase Total Protein Albumin Lipase Urine Color Urine Appearance Urine pH Ur Specific Tensed Urine Protein Urine Glucose (UA) Urine Ketones Urine Blood Urine Nitrite Ur Leukocyte Esterase COVID-19 (JANET) Negative COVID-19 Clin Com See Note Imaging CT scan - abdomen: Radiologist's impression: ITS Impressions Abdomen/Pelvis CT 09/18/22 01:00 IMPRESSION: 1. High-grade small bowel obstruction in the central abdomen where a loop of small bowel passes the region of abnormal soft tissue thickening in the central small bowel mesentery, potentially due to local tumor involvement or adhesions. 2. A 1.5 x 2 cm focus of nodular wall thickening in the small bowel in the right upper quadrant, potentially corresponding to a small bowel lesion. 3. A 3 mm solid pulmonary nodule in the left lower lobe. This region was not included on multiple CTs of the abdomen and pelvis dating back to 2018. Consider follow-up per oncology protocol. 4. Small sliding-type hiatal hernia. Fleischner guidelines were followed. KUB X-Ray 09/18/22 03:56 IMPRESSION: 1. Enteric tube tip terminates in the stomach with side-port at the diaphragmatic hiatus. Consider advancing another 3 cm. 2. Dilated loops of small bowel in the central abdomen. Discharge Plan Discharge Anticipated Discharge Date/Time: 09/18/22 15:19 Patient Disposition: Xfer Acute Care Hospital Discharge Diagnosis: Small bowel obstruction, recurrent carcinoid tumor Referrals: Physician,Unknown J [Primary Care Provider] - 1 Week Discharge Medications: Continued albuterol sulfate 90 mcg/actuation Hfa Aerosol Inhaler 2 puff INHALATION Q4-6H PRN (Reason: Shortness Of Breath Or Wheezing) Held meclizine 25 mg tablet 25 mg PO DAILY PRN (Reason: motion sickness) 90 Days Qty: 90 3RF Hold Instructions: Resume on 09/21/22. dicyclomine 20 mg tablet 20 mg PO TID PRN (Reason: abdominal pain) 30 Days Qty: 60 0RF Hold Instructions: Resume on 09/21/22. Eliquis 5 mg tablet 5 mg PO BID Qty: 60 5RF Hold Instructions: Resume on 09/21/22. Multaq 400 mg tablet 400 mg PO BID 30 Days Qty: 60 5RF Hold Instructions: Resume on 09/21/22. loperamide 2 mg Capsule 2 mg PO Q6H PRN (Reason: Diarrhea) Hold Instructions: Resume on 09/21/22. tramadol 50 mg Tablet 50 mg PO DAILY PRN (Reason: Pain) Qty: 30 0RF Hold Instructions: Resume on 09/21/22. omeprazole 20 mg capsule,delayed release(DR/EC) 20 mg PO DAILY@0630 Hold Instructions: Resume on 09/21/22. oxybutynin chloride 10 mg tablet extended release 24hr 10 mg PO BEDTIME Hold Instructions: Resume on 09/21/22. simvastatin 20 mg tablet 20 mg PO BEDTIME Hold Instructions: Resume on 09/21/22. ferrous sulfate 325 mg (65 mg iron) tablet 325 mg PO BID Hold Instructions: Resume on 09/21/22. montelukast 10 mg tablet 10 mg PO BEDTIME Hold Instructions: Resume on 09/21/22. loratadine 10 mg tablet 10 mg PO BEDTIME Hold Instructions: Resume on 09/21/22. cholecalciferol (vitamin D3) 25 mcg (1,000 unit) capsule 1,000 unit PO BEDTIME Hold Instructions: Resume on 09/21/22. docusate sodium [Colace] 100 mg capsule 200 mg PO BEDTIME PRN (Reason: constipation) 30 Days Qty: 60 3RF Hold Instructions: Resume on 09/21/22. Rx Instructions: as need for constipation- stop if diarrhea Diet: NPO Activity on Discharge: Bedrest Stand Alone Forms: Patient Portal Discharge page
[2022-09-18 15:49] LABS: Estimated Average Glucose 131 mg/dL; Hemoglobin A1c % 6.2 %
--- NOTE | 2022-09-18 16:10 | PC.NURSE ---
advanced NG tube 10CM per order, flushed/irrigated with 30cc sterile water, returned to low wall suction intermittent.
[2022-09-19 03:54] VITALS: BP 128/67; PULSE 92; RESP 18; TEMP 37.1; O2SAT 97
[2022-09-19] MEDS: Morphine Sulfate 2 MG/ML CARTRIDGE 4 MG IVPUSH ×2 (04:31→15:25)
[2022-09-19 07:27] VITALS: BP 131/71; PULSE 85; RESP 17; TEMP 36.4; O2SAT 94
--- NOTE | 2022-09-19 07:45 | PM.HEMONCCN ---
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 She has had significant weight loss over the last year. No facial flushing, bronchospasm, cough or wheezing. A CT abdomen/pelvis in February 2019 showed mesenteric mass, measuring 4.4 x 3.6 x 3.6 cm encircling the superior mesenteric artery over a length of 4-5 cm. Tethering of the small bowel mesentery surrounding the mass with engorgement or infiltration along the vasa recta. Mild associated small bowel thickening, no obstruction. Chest x-ray was negative. Urine 24 hour showed no elevation of 5 HIAA, 2.5 mg/24 hours. Workup for normocytic anemia- Normal iron studies, vitamin B12 and folate levels. Retic count, serum protein electrophoresis and immunofixation in February 2020 showed no monoclonal protein. Initial chromogranin a level elevated at 11 78 NG/mL. She had symptoms of diarrhea/carcinoid symptoms. She started octreotide LAR 30 mg IM once a month from March 2019. HPI - Consult Narrative Reason for consult: history of carcinoid, small-bowel obstruction Narrative: Jack Urrutia is a 62 year old female who is admitted with symptoms of bowel obstruction. She says she developed symptoms of abdominal pain and constipation since Monday, this worsened over the weekend and she presented to the emergency department. She denies fever or chills. No headache or dizziness. No chest pain. Workup in the emergency department revealed a potassium of 5.9, CT of abdomen showed high-grade small bowel obstruction in the central abdomen, 1.5 x 2 cm focus of nodular wall thickening in the small bowel in the right upper quadrant potentially corresponding to a small bowel lesion. She has had an NG-tube placed and has been seen by surgeon. Review of Systems - Constitutional Reports as per HPI, Reports malaise, Reports poor appetite - Cardiovascular Reports no additional cardiovascular complaints - Respiratory Reports no additional respiratory complaints - Gastrointestinal Reports abdominal pain PMFSH Medical History: Medical History (Last Reviewed 09/18/22 @ 14:43 by Manuel Johnson MD) Afib Anemia Arthritis Asthma Colon polyp Constipation Diabetes Environmental allergies Gastric polyp GERD (gastroesophageal reflux disease) Hyperlipemia IBS (irritable bowel syndrome) Lipid disorder Neuroendocrine neoplasm of gastrointestinal tract Overactive bladder Paroxysmal atrial fibrillation Vitamin D deficiency Family History: Family History (Last Reviewed 09/18/22 @ 14:43 by Manuel Johnson MD) Father Afib Pneumonia Brother Afib Heart disease Brother Heart disease Mother Unknown family medical history Surgical History: Surgical History (Last Reviewed 09/18/22 @ 14:43 by Manuel Johnson MD) History of colonoscopy History of esophagogastroduodenoscopy Social History: Social History (Last Reviewed 09/18/22 @ 14:43 by Manuel Johnson MD) Living Situation History: Household Members: None Housing: Apartment Housing Other:: [facility] Do you presently have 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 or 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 Do you presently have 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 or other home services comment: [employer] for [employer] for laundry, and cleaning. 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 Tobacco History: Patient Tobacco Use Status: Never used Tobacco e-Cigarette/Vaping Use: Never Used Second Hand Smoke Exposure: No Occupation Assessmet: service: No Current occupational status: disabled Home Medications and Allergies Current Medications: Current Medications Acetaminophen (Acetaminophen Supp 650 Mg Supp.Rect) 650 mg DE Q6H PRN PRN Reason: Pain, Mild (Pain Scale 1-3) Last Admin: 09/18/22 11:41 Dose: 650 mg Lactated Ringer's (Lr) 1,000 mls @ 100 mls/hr IVCONT .Q10H HERBERT Last Admin: 09/18/22 23:43 Dose: 100 mls/hr Morphine Sulfate (Morphine Sulfate 2 Mg/Ml Cartridge) 4 mg IVPUSH Q4H PRN; Protocol PRN Reason: Pain, Severe (Pain Scale 7-10) Last Admin: 09/19/22 04:31 Dose: 4 mg Ondansetron HCl (Ondansetron Hcl 4 Mg/2 Ml Vial) 4 mg IVPUSH Q8H PRN PRN Reason: Nausea and Vomiting Sodium Chloride (0.9 % Sodium Chloride Flush 3 Ml Syringe) 3 ml IVFLUSH QSHIFT HERBERT Last Admin: 09/18/22 23:44 Dose: Not Given Home Medications Medication Instructions Recorded Confirmed Type loperamide 2 mg capsule 2 mg PO Q6H PRN Diarrhea 08/11/20 09/18/22 History albuterol sulfate 90 mcg/actuation 2 puff inhalation Q4-6H PRN 09/18/22 09/18/22 History aerosol inhaler Shortness Of Breath Or Wheezing cholecalciferol (vitamin D3) 25 1,000 unit PO BEDTIME 09/18/22 09/18/22 History mcg (1,000 unit) capsule ferrous sulfate 325 mg (65 mg 325 mg PO BID 09/18/22 09/18/22 History iron) tablet loratadine 10 mg tablet 10 mg PO BEDTIME 09/18/22 09/18/22 History montelukast 10 mg tablet 10 mg PO BEDTIME 09/18/22 09/18/22 History omeprazole 20 mg capsule,delayed 20 mg PO DAILY@0630 09/18/22 09/18/22 History release oxybutynin chloride 10 mg 10 mg PO BEDTIME 09/18/22 09/18/22 History tablet,extended release 24 hr simvastatin 20 mg tablet 20 mg PO BEDTIME 09/18/22 09/18/22 History Allergies Allergy/AdvReac Type Severity Reaction Status Date / Time Erythromycin Allergy Unknown GI upset, Verified 09/17/22 20:30 increases pain erythromycin base AdvReac Intermediate GI UPSET Verified 09/17/22 20:30 [Erythromycin Base] Motrin AdvReac Unknown GI Upset, Verified 09/17/22 20:30 increases pain Chocolate Allergy Mild RASH Uncoded 06/07/22 13:04 Environmental Allergy Unknown Unknown Uncoded 06/07/22 13:04 Physical Exam Vital signs: Vital Signs Temp 97.5 F 09/19/22 07:27 Pulse 85 09/19/22 07:27 Resp 17 09/19/22 07:27 BP 131/71 09/19/22 07:27 Pulse Ox 94 09/19/22 07:27 O2 Del Method 09/19/22 07:27 Intake & Output 09/18/22 09/19/22 09/19/22 18:59 06:59 18:59 Intake Total 1000 / 1600 600 / 1600 Output Total 200 / 200 Balance 1000 / 1400 400 / 1400 Intake: Intake, Oral Amount 0 / 0 Intake, IV Amount 1000 / 1600 600 / 1600 Lactated Ringers 1,000 ml @ 100 1000 / 1600 600 / 1600 mls/hr IVCONT .Q10H HERBERT Rx#: [id number] Output: Output, Gastric Drainage Amount 200 / 200 Right Nare 200 / 200 Other: NPO Yes Yes Number of Unmeasured Voids 1 3 Number of Bowel Movements 0 Urine Bedside Commode Bedside Commode Urine Color Yellow Last Bowel Movement 09/16/22 09/16/22 Weight 58.967 kg - Constitutional Present: no acute distress - Routine HEENT Exam Head: Present: normal inspection Eye: Present: EOMI - Routine Neck Exam Present: supple. Absent: lymphadenopathy - Routine Respiratory Exam Absent: accessory muscle use - Routine Cardiovascular Exam Cardiovascular: Present: S1, S2 - Routine Abdominal Exam Present: distended, hypoactive bowel sounds Hem/Onc Consult Result - Labs CBC & Chem 7: 09/18/22 05:09 09/18/22 05:09 Assessment and Plan Patient Active problem list reviewed?: Yes (1) Neuroendocrine neoplasm of gastrointestinal tract Status: Chronic Assessment and plan: 1. 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 Soft tissue mass in the small bowel mesentry measuring 4.4 x 3.6 x 3.6 cm encircling the superior mesenteric artery. Partial excision was performed 04/15/2019, well-differentiated 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 tumor extending to tissue margins. Tumor could not be entirely resected as it was encircling and adherent to superior mesenteric artery. Chromogranin a was elevated at 1178 NG/mL. She had symptoms of diarrhea, carcinoid symptoms. She is on octreotide LAR 30 mg IM once a month since March 2019. Her last CT scan in November 2021 showed no progression of disease. She was doing well until this past weekend when she presented with acute symptoms of bowel obstruction. I reviewed CT scans with radiologist, although the November CT scan images could not be pulled up, scan from 2019 was compared to the current scan and there has been no significant progression of tumor compared to the 2019 scan. However, even if there is tumor progression with symptoms of bowel obstruction from carcinoid tumor, surgical intervention would be necessary. Carcinoid tumors are not sensitive to chemotherapy, next available option would be a radiolabeled somatostatin analogs which cannot be administered in this setting of bowel obstruction. They do not shrink the tumor rapidly either. I thank you for this consultation, will follow with you. - Time Spent With Patient Time Spent with Patient (in minutes): 15
--- NOTE | 2022-09-19 07:53 | P.PNGS_ITS ---
Subjective Subjective Date of Service: 09/19/22 Patient reports: no new complaints and still having pain Interval history: Patient reports no changed. She is passing low but gas but is still having crampy abdominal pain. She expressed concern regarding her history of carcinoid in whether not there is no carcinoid on whether not she will require an operation. She otherwise denies chest pain, difficulty breathing or shortness of breath. Physical Exam Vital Signs: Vital Signs: Last Vital Signs Temp 97.5 F 09/19/22 07:27 Pulse 85 09/19/22 07:27 Resp 17 09/19/22 07:27 BP 131/71 09/19/22 07:27 Pulse Ox 94 09/19/22 07:27 O2 Del Method 09/19/22 07:27 BMI result Body Mass Index 27.1 On exam she is nontoxic NG aspirate appears as old stagnant bile PERRLA, EOMI Sclera remain anicteric Abdomen is soft with minimal lower abdominal tenderness with no rebound, rigidity or guarding. No peritoneal sign is present Objective Data Active Medications Acetaminophen (Acetaminophen Supp 650 Mg Supp.Rect) 650 mg [place] Q6H PRN PRN Reason: Pain, Mild (Pain Scale 1-3) Last Admin: 09/18/22 11:41 Dose: 650 mg Documented By: ANDREAS Lactated Ringer's (Lr) 1,000 mls @ 100 mls/hr IVCONT .Q10H HERBERT Last Admin: 09/18/22 23:43 Dose: 100 mls/hr Documented By: RICHY Morphine Sulfate (Morphine Sulfate 2 Mg/Ml Cartridge) 4 mg IVPUSH Q4H PRN; Pr otocol PRN Reason: Pain, Severe (Pain Scale 7-10) Last Admin: 09/19/22 04:31 Dose: 4 mg Documented By: RICHY Ondansetron HCl (Ondansetron Hcl 4 Mg/2 Ml Vial) 4 mg IVPUSH Q8H PRN PRN Reason: Nausea and Vomiting Sodium Chloride (0.9 % Sodium Chloride Flush 3 Ml Syringe) 3 ml IVFLUSH QSHIFT HERBERT Last Admin: 09/18/22 23:44 Dose: Not Given Documented By: RICHY Non-Admin Reason: IV Running Labs CBC & Chem 7: 09/18/22 05:09 09/18/22 05:09 Labs: Laboratory Results - last 24 hr 09/18/22 15:10 Estimat Average Glucose 131 Hemoglobin A1c % 6.2 Microbiology Microbiology Results: Microbiology 09/18/22 02:41 Blood Culture - Preliminary Blood - Venous No growth after 24 hours. 09/18/22 02:41 Blood Culture - Preliminary Blood - Venous No growth after 24 hours. Procedures Date of Service Date of Service: 09/19/22 Progress Note: A&P Assessment and plan (1) Small bowel obstruction: Status: Acute (2) Metastatic carcinoid tumor: Status: Chronic (3) Paroxysmal atrial fibrillation: Status: Acute (4) Neuroendocrine neoplasm of gastrointestinal tract: Status: Chronic (5) Lipid disorder: Status: Acute (6) Hogan syndrome: Status: Acute Plan Continue NPO, NGT, IV hydration Encourage incentive spirometry Trend labs Await oncology input. Concern re: possible carcinoid recurrence based on CT findings verses adhesive obstruction. 09/19/22 0920 Oncology input reviewed and appreciated. Will discuss timing of exploratory laparotomy with patient. Time Spent With Patient Time: Total time spent is greater than 50% in coordination of care (as documented) at patient's floor/unit and/or counseling patient: Quality Stroke Does the patient have a stroke diagnosis?: No VTE Prior VTE?: No VTE Risk Level:: Medical - moderate - high VTE Device Contraindication: N/A - Device Ordered VTE Drug Contraindication: Treatment Not Indicated
--- NOTE | 2022-09-19 09:27 | P.PNIM_ITS ---
Subjective Subjective Date of Service: 09/19/22 Interval History: Seen in f/u sbo, concern for recurrent carcinoid interval history: abd still distendended, NGT draining, no pain Review of Systems no fever +abd distention, Physical Exam Vital Signs: Vital Signs: Last Vital Signs Temp 97.5 F 09/19/22 07:27 Pulse 85 09/19/22 07:27 Resp 17 09/19/22 07:27 BP 131/71 09/19/22 07:27 Pulse Ox 94 09/19/22 07:27 O2 Del Method 09/19/22 07:27 BMI result Body Mass Index 27.1 Const: Other: General: AO X 3, no acute distress Resp: CTA bilateral CVS: S1,S2,RRR GI: -BS, NT, + distention Skin: No rash Neuro: motor grossly intact Psych: appropriate affect Objective Data Active Medications Acetaminophen (Acetaminophen Supp 650 Mg Supp.Rect) 650 mg ID Q6H PRN PRN Reason: Pain, Mild (Pain Scale 1-3) Last Admin: 09/18/22 11:41 Dose: 650 mg Documented By: ANDREAS Lactated Ringer's (Lr) 1,000 mls @ 100 mls/hr IVCONT .Q10H HERBERT Last Admin: 09/19/22 09:18 Dose: Not Given Documented By: PILLO Non-Admin Reason: previous bag running Morphine Sulfate (Morphine Sulfate 2 Mg/Ml Cartridge) 4 mg IVPUSH Q4H PRN; Protocol PRN Reason: Pain, Severe (Pain Scale 7-10) Last Admin: 09/19/22 04:31 Dose: 4 mg Documented By: RICHY Ondansetron HCl (Ondansetron Hcl 4 Mg/2 Ml Vial) 4 mg IVPUSH Q8H PRN PRN Reason: Nausea and Vomiting Sodium Chloride (0.9 % Sodium Chloride Flush 3 Ml Syringe) 3 ml IVFLUSH QSHIFT HERBERT Last Admin: 09/19/22 09:10 Dose: Not Given Documented By: PILLO Non-Admin Reason: IV Running Labs CBC & Chem 7: 09/18/22 05:09 09/18/22 05:09 Labs: Laboratory Results - last 24 hr 09/18/22 15:10 Estimat Average Glucose 131 Hemoglobin A1c % 6.2 Microbiology Microbiology Results: Microbiology 09/18/22 02:41 Blood Culture - Preliminary Blood - Venous No growth after 24 hours. 09/18/22 02:41 Blood Culture - Preliminary Blood - Venous No growth after 24 hours. Assessment and Plan (1) Small bowel obstruction: Status: Acute (2) Acute hyperkalemia: Status: Acute (3) Carcinoid tumor: Status: Acute Plan 62-year-old female with past medical history of paroxysmal AFib,? 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 of site medical director tract, history of carcinoid tumor presents to the hospital with complaints of abdominal pain found to have small-bowel obstruction # high grade small-bowel obstruction with concern scar vs recurrent carcinoid related. -continue NGT, NPO, and surgery considering exploration # acute hyperkalemia, last K 5.4, recheck # Permanent AFIB--rate controlled, holding eliquis in the event of intervention Will continue all her other chronic medications DVT prophylaxis:? SCDs Need for inpaitent: active high grade SBO that might need surgery Quality Stroke Does the patient have a stroke diagnosis?: No VTE Prior VTE?: No VTE Risk Level:: Medical - moderate - high VTE Device Contraindication: N/A - Device Ordered VTE Drug Contraindication: Treatment Not Indicated
[2022-09-19 10:15] LABS: Anion Gap 16 (12-20); Blood Urea Nitrogen 11 mg/dL (9-16); Carbon Dioxide 29 mmol/L (22-29); Chloride 102 mmol/L (96-108); Creatinine Clr Calc Pharmacy 54.7; Estimated Glomerular Filt Rate > 60; Glucose Random 124 mg/dL (60-115); Potassium 4.6 mmol/L (3.3-5.1); Sodium 142 mmol/L (135-145)
[2022-09-19 10:24] LABS: Calcium 8.9 mg/dL (8.4-10.2)
[2022-09-19 11:41] VITALS: BP 136/66; PULSE 75; RESP 18; TEMP 36.6; O2SAT 97
[2022-09-19] MEDS: Lactated Ringers 1,000 ML 100 ML IVCONT ×2 (12:03→22:28)
--- NOTE | 2022-09-19 13:29 | MHC.CM.PN ---
PT REPORTS SHE LIVES ALONE AND IS INDEPENDENT WITH SELF CARE PT REPORTS SHE HAS MEALS ON WHEELS AND A SUPPORT PERSON THROUGH A SHE REPORTS SHE HAS A CANE AND A WALKER SHE USES PRN OUTDOORS ONLY SHE SAYS SHE HAS HAD THE [employer] FOR COVID, NO BOOSTERS HCP ON FILE PCP: BOYD PATEL IMM DELIVERED CURRENT DC PLAN IS HOME WITH RESUMPTION OF SERVICES A SUPPORT PERSON VS SHUTTLE FOR TRANSPORT
--- NOTE | 2022-09-19 14:17 | PM.PNGS ---
Subjective Subjective Date of Service: 09/19/22 Interval history: 62-year-old female patient well known to me with a known carcinoid tumor involving the root of the mesentery now with small-bowel obstruction. Symptoms started on Monday and progressed over the weekend, necessitating a visit to the emergency department. CT abdomen and pelvis revealed markedly distended stomach and small bowel with evidence of a high-grade obstruction and decompressed distal small bowel. A 1.5 x 2 cm focus of nodular wall thickening is identified which may correspond to a small-bowel lesion. Physical Exam Vital Signs: Vital Signs: Last Vital Signs Temp 97.9 F 09/19/22 11:41 Pulse 75 09/19/22 11:41 Resp 18 09/19/22 11:41 BP 136/66 09/19/22 11:41 Pulse Ox 97 09/19/22 11:41 O2 Del Method 09/19/22 11:41 BMI result Body Mass Index 27.1 Const: General: cooperative and no acute distress Nutritional Appearance: well nourished Orientation/consciousness: patient oriented x3 Limitations: no limitations HEENT: Head: Yes normal to inspection, Yes normocephalic and Yes atraumatic Resp: Effort & Inspection: normal respiratory effort GI: Palpation (GI): Soft to palpation, nontender, no guarding and not rigid Percussion: Yes tympanic to percussion Auscultation: Absent bowel sounds Rectal Exam - Female: deferred Skin: General skin exam: no rashes or lesions noted Neuro: General: patient oriented x3 Extrem: General: Yes no clubbing, cyanosis or edema Objective Data Active Medications Acetaminophen (Acetaminophen Supp 650 Mg Supp.Rect) 650 mg DC Q6H PRN PRN Reason: Pain, Mild (Pain Scale 1-3) Last Admin: 09/18/22 11:41 Dose: 650 mg Documented By: ANDREAS Lactated Ringer's (Lr) 1,000 mls @ 100 mls/hr IVCONT .Q10H HERBERT Last Admin: 09/19/22 12:03 Dose: 100 mls/hr Documented By: PILLO Morphine Sulfate (Morphine Sulfate 2 Mg/Ml Cartridge) 4 mg IVPUSH Q4H PRN; Protocol PRN Reason: Pain, Severe (Pain Scale 7-10) Last Admin: 09/19/22 04:31 Dose: 4 mg Documented By: RICHY Ondansetron HCl (Ondansetron Hcl 4 Mg/2 Ml Vial) 4 mg IVPUSH Q8H PRN PRN Reason: Nausea and Vomiting Sodium Chloride (0.9 % Sodium Chloride Flush 3 Ml Syringe) 3 ml IVFLUSH QSHIFT [facility] Last Admin: 09/19/22 09:10 Dose: Not Given Documented By: PILLO Non-Admin Reason: IV Running Labs CBC & Chem 7: 09/18/22 05:09 09/19/22 09:45 Labs: Laboratory Results - last 24 hr 09/18/22 09/19/22 15:10 09:45 Anion Gap 16 Estim Creat Clear Calc 54.7 Estimated GFR > 60 Random Glucose 124 H Estimat Average Glucose 131 Hemoglobin A1c % 6.2 Calcium 8.9 D Microbiology Microbiology Results: Microbiology 09/18/22 02:41 Blood Culture - Preliminary Blood - Venous No growth after 24 hours. 09/18/22 02:41 Blood Culture - Preliminary Blood - Venous No growth after 24 hours. Procedures Date of Service Date of Service: 09/19/22 Progress Note: A&P Assessment and plan (1) Carcinoid tumor: Status: Acute (2) Hogan syndrome: Status: Acute (3) Small bowel obstruction: Status: Acute Plan 62-year-old female patient with a known history of carcinoid tumor now presenting with small-bowel obstruction presumably from carcinoid tumor invading the wall of the small bowel verses adhesions from prior surgery. Obstruction seems unlikely to improve without surgical exploration. She may require small-bowel resection or bypass. I reviewed the procedure, risks, and alternatives with the patient and her healthcare proxy (Lissa Urrutia [phone]). I recommended exploratory laparotomy, lysis of adhesions, possible bowel resection and they consent to the surgery. She will be added onto the OR schedule for tomorrow. Discussed with Dr. Durant Time Spent With Patient Time: Total time spent is greater than 50% in coordination of care (as documented) at patient's floor/unit and/or counseling patient: Quality Stroke Does the patient have a stroke diagnosis?: No VTE Prior VTE?: No VTE Risk Level:: Medical - moderate - high VTE Device Contraindication: N/A - Device Ordered VTE Drug Contraindication: Treatment Not Indicated
[2022-09-19 15:10] VITALS: BP 93/53; PULSE 89; RESP 17; TEMP 36.9; O2SAT 94
[2022-09-19 19:00] VITALS: BP 100/68; PULSE 74; RESP 17; TEMP 36.6; O2SAT 96
[2022-09-19 23:19] VITALS: BP 141/66; PULSE 84; RESP 14; TEMP 36.8; O2SAT 97
[2022-09-19] MEDS: 0.9 % Sodium Chloride Flush 3 ML SYRINGE IVFLUSH (23:25)
[2022-09-20] VITALS (15 sets, daily range): BP systolic 105–159; BP diastolic 56–78; PULSE 72–100; RESP 14–18; TEMP 36.4–37.3; O2SAT 95–100
[2022-09-20] MEDS: Acetaminophen Supp 650 MG SUPP.RECT PR (06:51)
[2022-09-20] MEDS: 0.9 % Sodium Chloride Flush 3 ML SYRINGE IVFLUSH ×2 (08:40→19:47)
--- NOTE | 2022-09-20 08:58 | HO.PM.IMPN ---
Subjective Subjective Date of Service: 09/20/22 Interval History: Seen in f/u sbo, concern for recurrent carcinoid interval history: persistent abdominal distention, NGT still draining Review of Systems no fever +abd distention, Physical Exam Vital Signs: Vital Signs: Last Vital Signs Temp 98.6 F 09/20/22 07:26 Pulse 86 09/20/22 07:26 Resp 16 09/20/22 07:26 BP 122/62 09/20/22 07:26 Pulse Ox 95 09/20/22 07:26 O2 Del Method 09/20/22 07:26 BMI result Body Mass Index 27.1 Const: Other: General: AO X 3, no acute distress Resp: CTA bilateral CVS: S1,S2,RRR GI: -BS, NT, + distention Skin: No rash Neuro: motor grossly intact Psych: appropriate affect Objective Data Active Medications Acetaminophen (Acetaminophen Supp 650 Mg Supp.Rect) 650 mg [place] Q6H PRN PRN Reason: Pain, Mild (Pain Scale 1-3) Last Admin: 09/20/22 06:51 Dose: 650 mg Documented By: BRAEDEN Cefazolin Sodium/Dextrose (Ancef) 2 gm in 50 mls @ 100 mls/hr IV PREOP ONE Stop: 09/20/22 15:14 Morphine Sulfate (Morphine Sulfate 2 Mg/Ml Cartridge) 4 mg IVPUSH Q4H PRN; Protocol PRN Reason: Pain, Severe (Pain Scale 7-10) Last Admin: 09/19/22 15:25 Dose: 4 mg Documented By: PILLO Ondansetron HCl (Ondansetron Hcl 4 Mg/2 Ml Vial) 4 mg IVPUSH Q8H PRN PRN Reason: Nausea and Vomiting Sodium Chloride (0.9 % Sodium Chloride Flush 3 Ml Syringe) [facility] Last Admin: 09/20/22 08:40 Dose: 3 ml Documented By: SANJUANITA Labs CBC & Chem 7: 09/18/22 05:09 09/19/22 09:45 Labs: Laboratory Results - last 24 hr 09/19/22 09:45 Anion Gap 16 Estim Creat Clear Calc 54.7 Estimated GFR > 60 Random Glucose 124 H Calcium 8.9 D Microbiology Microbiology Results: Microbiology 09/18/22 02:41 Blood Culture - Preliminary Blood - Venous No growth after 48 hours. 09/18/22 02:41 Blood Culture - Preliminary Blood - Venous No growth after 48 hours. Assessment and Plan (1) Small bowel obstruction: Status: Acute (2) Acute hyperkalemia: Status: Acute (3) Carcinoid tumor: Status: Acute Plan 62-year-old female with past medical history of paroxysmal AFib,? 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 -continue NGT, NPO, for ex-lap and possible lysis of adhesions today # acute hyperkalemia, last K 5.4, recheck # Permanent AFIB--rate controlled, holding eliquis in the event of intervention Will continue all her other chronic medications DVT prophylaxis:? SCDs Need for inpaitent: active high grade SBO that might need surgery Quality Stroke Does the patient have a stroke diagnosis?: No VTE Prior VTE?: No VTE Risk Level:: Medical - moderate - high VTE Device Contraindication: N/A - Device Ordered VTE Drug Contraindication: Treatment Not Indicated
[2022-09-20] MEDS: Lactated Ringers 1,000 ML 50 ML IVCONT (13:04)
--- NOTE | 2022-09-20 13:12 | P.CONAN_ITS ---
HPI - Anesthesia Eval Consult details Narrative: 62 F for ex lap paroxysmal AFib,? 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, history of carcinoid tumor , small-bowel obstruction , eliquis being held [facility] Active Problems Active Problems: All Active Problems (Updated 09/19/22 @ 09:33 by Dave Durant MD) Carcinoid tumor (Acute) Hogan syndrome (Acute) Small bowel obstruction (Acute) Acute hyperkalemia (Acute) IBS (irritable bowel syndrome) (Acute) Constipation (Acute) Upper respiratory tract infection (Acute) Non-cardiac chest pain (Acute) Hospital discharge follow-up (Acute) Metastatic carcinoid tumor (Chronic) Hyperkalemia (Acute) Vitamin D deficiency (Acute) Chronic vertigo (Acute) Hospital discharge follow-up (Acute) Orthostatic hypotension (Acute) Dizziness (Acute) Chest discomfort (Acute) Stomach upset (Acute) GERD (gastroesophageal reflux disease) (Acute) Paroxysmal atrial fibrillation (Acute) Overactive bladder (Acute) Environmental allergies (Acute) Neuroendocrine neoplasm of gastrointestinal tract (Chronic) Lipid disorder (Acute) Past Medical History Medical History Afib Anemia Arthritis Asthma Colon polyp Constipation Diabetes Environmental allergies Gastric polyp GERD (gastroesophageal reflux disease) Hyperlipemia IBS (irritable bowel syndrome) Lipid disorder Neuroendocrine neoplasm of gastrointestinal tract Overactive bladder Paroxysmal atrial fibrillation Vitamin D deficiency Functional capacity: uses cane/walker Family History Family History Father Afib Pneumonia Brother Afib Heart disease Brother Heart disease Mother Unknown family medical history Family history of problems with anesthesia: No Surgical History Surgical History History of colonoscopy History of esophagogastroduodenoscopy History of Problems with Anesthesia: No Social History Social History Household Members: None Housing: Apartment Housing Other:: mental health association [facility] Do you presently have 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 or 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 ([employer] for laundry, and cleaning. Me[employer] on Wheels for meal delivery.) Alcohol intake: never Patient Tobacco Use Status: Never used Tobacco e-Cigarette/Vaping Use: Never Used Second Hand Smoke Exposure: No service: No Current occupational status: disabled Cognitive needs: No Hearing needs: No Vision needs: Yes Meds Allergies Allergy/AdvReac Type Severity Reaction Status Date / Time Erythromycin Allergy Unknown GI upset, Verified 09/17/22 20:30 increases pain erythromycin base AdvReac Intermediate GI UPSET Verified 09/17/22 20:30 [Erythromycin Base] Motrin AdvReac Unknown GI Upset, Verified 09/17/22 20:30 increases pain Chocolate Allergy Mild RASH Uncoded 06/07/22 13:04 Environmental Allergy Unknown Unknown Uncoded 06/07/22 13:04 Active Medications: Current Medications Acetaminophen (Acetaminophen Supp 650 Mg Supp.Rect) 650 mg ND Q6H PRN PRN Reason: Pain, Mild (Pain Scale 1-3) Last Admin: 09/20/22 06:51 Dose: 650 mg Cefazolin Sodium/Dextrose (Ancef) 2 gm in 50 mls @ 100 mls/hr IV PREOP ONE Stop: 09/20/22 15:14 Lactated Ringer's (Lr) 1,000 mls @ 50 mls/hr IVCONT .Q20H HERBERT Last Admin: 09/20/22 13:04 Dose: 50 mls/hr Morphine Sulfate (Morphine Sulfate 2 Mg/Ml Cartridge) 4 mg IVPUSH Q4H PRN; Protocol PRN Reason: Pain, Severe (Pain Scale 7-10) Last Admin: 09/19/22 15:25 Dose: 4 mg Ondansetron HCl (Ondansetron Hcl 4 Mg/2 Ml Vial) 4 mg IVPUSH Q8H PRN PRN Reason: Nausea and Vomiting Sodium Chloride (0.9 % Sodium Chloride Flush 3 Ml Syringe) 3 ml IVFLUSH QSHIFT [facility] Last Admin: 09/20/22 08:40 Dose: 3 ml Home Medications Medication Instructions Recorded Confirmed Last Taken Type loperamide 2 mg capsule 2 mg PO Q6H PRN Diarrhea 08/11/20 09/18/22 Unknown History albuterol sulfate 90 mcg/actuation 2 puff inhalation Q4-6H PRN 09/18/22 09/18/22 Unknown History aerosol inhaler Shortness Of Breath Or Wheezing cholecalciferol (vitamin D3) 25 1,000 unit PO BEDTIME 09/18/22 09/18/22 09/16/22 History mcg (1,000 unit) capsule ferrous sulfate 325 mg (65 mg 325 mg PO BID 09/18/22 09/18/22 09/17/22 History iron) tablet loratadine 10 mg tablet 10 mg PO BEDTIME 09/18/22 09/18/22 09/16/22 History montelukast 10 mg tablet 10 mg PO BEDTIME 09/18/22 09/18/22 09/16/22 History omeprazole 20 mg capsule,delayed 20 mg PO DAILY@0630 09/18/22 09/18/22 09/16/22 History release oxybutynin chloride 10 mg 10 mg PO BEDTIME 09/18/22 09/18/22 09/16/22 History tablet,extended release 24 hr simvastatin 20 mg tablet 20 mg PO BEDTIME 09/18/22 09/18/22 09/16/22 History Exam Exam Date and Time: September 20, 2022 131 Height,Weight and Vital Signs: Height 4 ft 10 in Weight 58.967 kg Last Vital Signs Temp 98.6 F 09/20/22 12:49 Pulse 83 09/20/22 12:49 Resp 18 09/20/22 12:49 BP 105/57 L 09/20/22 12:49 Pulse Ox 95 09/20/22 12:49 O2 Del Method 09/20/22 12:49 Pertinent Lab Results Pertinent Lab Results: Laboratory Tests 09/17/22 09/17/22 09/17/22 20:39 20:39 22:32 WBC 11.8 H RBC 4.02 L Hgb 12.0 Hct 37.3 MCV 92.8 MCH 29.9 MCHC 32.2 RDW 14.6 Plt Count 312 D MPV 10.2 Immature Gran % (Auto) 0.5 H Neut % (Auto) 75.4 H Lymph % (Auto) 17.0 L [place] % (Auto) 6.5 Eos % (Auto) 0.3 Baso % (Auto) 0.3 Lymph # (Auto) 2.0 [place] # (Auto) 0.8 Eos # (Auto) 0.0 Baso # (Auto) 0.0 Abs Immat Gran (auto) 0.06 H Absolute Neuts (auto) 8.9 H Absolute Nucleated RBC 0.000 Nucleated RBC % (auto) 0.0 Sodium 141 Potassium 5.9 H D 5.7 H Chloride 105 Carbon Dioxide 24 Anion Gap 18 BUN 22 H Creatinine 1.21 Estim Creat Clear Calc 36.1 Estimated GFR 45 Random Glucose 136 H Estimat Average Glucose Hemoglobin A1c % Lactic Acid Lactic Acid F/U @ 2Hr Calcium 9.8 D Magnesium 2.1 Total Bilirubin 0.4 Direct Bilirubin 0.2 AST 17 D ALT 9 Alkaline Phosphatase 70 Total Protein 7.5 Albumin 4.6 Lipase 27 Urine Color Urine Appearance Urine pH Ur Specific [place] Urine Protein Urine Glucose (UA) Urine Ketones Urine Blood Urine Nitrite Ur Leukocyte Esterase COVID-19 (JANET) COVID-19 Clin Com 09/18/22 09/18/22 09/18/22 00:15 02:39 02:40 WBC RBC Hgb Hct MCV MCH MCHC RDW Plt Count MPV Immature Gran % (Auto) Neut % (Auto) Lymph % (Auto) [place] % (Auto) Eos % (Auto) Baso % (Auto) Lymph # (Auto) [place] # (Auto) Eos # (Auto) Baso # (Auto) Abs Immat Gran (auto) Absolute Neuts (auto) Absolute Nucleated RBC Nucleated RBC % (auto) Sodium Potassium 4.1 D Chloride Carbon Dioxide Anion Gap BUN Creatinine Estim Creat Clear Calc Estimated GFR Random Glucose Estimat Average Glucose Hemoglobin A1c % Lactic Acid 2.8 H* Lactic Acid F/U @ 2Hr Calcium Magnesium Total Bilirubin Direct Bilirubin AST ALT Alkaline Phosphatase Total Protein Albumin Lipase Urine Color Yellow Urine Appearance Clear Urine pH 5.0 Ur Specific [place] 1.025 Urine Protein Negative Urine Glucose (UA) Negative Urine Ketones Trace Urine Blood Negative Urine Nitrite Negative Ur Leukocyte Esterase Negative COVID-19 (JANET) COVID-19 Clin Com 09/18/22 09/18/22 09/18/22 05:09 05:09 05:09 WBC 10.2 RBC 3.84 L Hgb 11.6 L Hct 36.8 L MCV 95.8 MCH 30.2 MCHC 31.5 RDW 14.6 Plt Count 284 MPV 11.1 Immature Gran % (Auto) 0.4 Neut % (Auto) 87.1 H Lymph % (Auto) 8.0 L [place] % (Auto) 4.3 Eos % (Auto) 0.1 Baso % (Auto) 0.1 Lymph # (Auto) 0.8 L [place] # (Auto) 0.4 Eos # (Auto) 0.0 Baso # (Auto) 0.0 Abs Immat Gran (auto) 0.04 H Absolute Neuts (auto) 8.9 H Absolute Nucleated RBC 0.000 Nucleated RBC % (auto) 0.0 Sodium 141 Potassium 5.3 H D Chloride 103 Carbon Dioxide 24 Anion Gap 19 BUN 18 H Creatinine 1.02 Estim Creat Clear Calc 42.8 Estimated GFR 55 Random Glucose 214 H Estimat Average Glucose Hemoglobin A1c % Lactic Acid Lactic Acid F/U @ 2Hr 1.8 Calcium 10.3 H Magnesium Total Bilirubin Direct Bilirubin AST ALT Alkaline Phosphatase Total Protein Albumin Lipase Urine Color Urine Appearance Urine pH Ur Specific [place] Urine Protein Urine Glucose (UA) Urine Ketones Urine Blood Urine Nitrite Ur Leukocyte Esterase COVID-19 (JANET) COVID-19 [employer] 09/18/22 09/18/22 09/19/22 05:48 15:10 09:45 WBC RBC Hgb Hct MCV MCH MCHC RDW Plt Count MPV Immature Gran % (Auto) Neut % (Auto) Lymph % (Auto) [place] % (Auto) Eos % (Auto) Baso % (Auto) Lymph # (Auto) [place] # (Auto) Eos # (Auto) Baso # (Auto) Abs Immat Gran (auto) Absolute Neuts (auto) Absolute Nucleated RBC Nucleated RBC % (auto) Sodium 142 Potassium 4.6 Chloride 102 Carbon Dioxide 29 Anion Gap 16 BUN 11 Creatinine 0.80 Estim Creat Clear Calc 54.7 Estimated GFR > 60 Random Glucose 124 H Estimat Average Glucose 131 Hemoglobin A1c % 6.2 Lactic Acid Lactic Acid F/U @ 2Hr Calcium 8.9 D Magnesium Total Bilirubin Direct Bilirubin AST ALT Alkaline Phosphatase Total Protein Albumin Lipase Urine Color Urine Appearance Urine pH Ur Specific [place] Urine Protein Urine Glucose (UA) Urine Ketones Urine Blood Urine Nitrite Ur Leukocyte Esterase COVID-19 (JANET) Negative COVID-19 Clin Com See Note Airway Mallampati Class: IV TM Dist: <=3cm Neck ROM: Limited Loose/Missing/Broken Teeth: Yes (Poor dentition overall ) Heart: S1,S2 Lungs: b/l breath sounds Assessment and Plan Assessment Anesthesia Assessment: Anesthesia Plan Discussed and Chart Reviewed Final Anesthetic Review Family History of Problems with Anesthesia: No History of Problems with Anesthesia: No NPO: Yes ASA Class: Emergency Final Preanesthetic Review: Meds/Allgs Chart Reviewed, Consent Obtained/Reviewed and Anes Risks/Benef Reviewed Patient Risk: High Procedure Risk: Intermediate Anesthetic Plan Anesthetic Plan: GA Disposition: Inp. Admit - Standard Bed
[2022-09-20] MEDS: Acetaminophen 1,000 MG/100 ML PIGGYBACK 400 MG IV (15:27)
--- NOTE | 2022-09-20 15:28 | P.OP_ITS ---
Operative Note Operative Note Date of Service: 09/20/22 Narrative: Preoperative diagnosis: Small-bowel obstruction, history of carcinoid tumor Postoperative diagnosis: Small-bowel obstruction, history of carcinoid tumor Procedure: Exploratory laparotomy, lysis of adhesions Surgeon: Parish Sanchez MD Barrel Lathe Operator Inside: Lizbet Yee PA-C, B[employer]IR Power Anesthesia: General, endotracheal Indications for procedure: 62-year-old female patient with a prior carcinoid t umor involving small bowel mesentery, status post resection with small-bowel resection now presenting with small-bowel obstruction. Operative findings: Small-bowel obstruction due to adhesions adjacent to prior resection. Specimen: None Estimated blood loss: 10 mL Complications: None Procedure details: Patient was brought to the OR placed in a supine position. After administering general anesthesia the patient's abdomen was prepped with ChloraPrep and draped in a sterile fashion. A periumbilical midline incision was then created with a scalpel measuring approximately 7 cm. This was carried out through subcutaneous tissue, through linea alba into the peritoneum. A small umbilical hernia was noted in this location. Dilated small bowel was noted suggestive of a small-bowel obstruction. The cecum was identified which appeared normal with stool within it. Terminal ileum was then identified and run proximally. An area of adhesion was immediately found in the distal ileum which appeared to be adjacent to the prior area of small-bowel resection. A lysis of adhesions was performed using Metzenbaum scissors free the adherent loop. An area of narrowing was identified suggestive of the site of obstruction. No bowel resection was required however. The remainder of the small bowel was run from ligament Treitz down to the terminal ileum and no other area of obstruction could be identified. No evidence of carcinoid tumor was noted as a source of obstruction. A separation of the mesentery in the region of the previous bowel anastomosis was identified and reapproximated using interrupted 2 0 Surgilon sutures. The bowel was returned to the abdominal cavity. Fascia was then closed in the midline using a running looped 0 PDS suture. Dermis was then reapproximated using interrupted 3-0 Polysorb sutures. Skin was closed using skin luther. Sterile dressings were then applied. The patient tolerated the procedure well. An abdominal x-ray was performed due to a discrepancy in the surgical count. This x-ray was normal without evidence of a foreign body. The patient was transferred to PACU in stable condition.
[2022-09-20] MEDS: ondansetron HCL 4 MG/2 ML VIAL IVPUSH (15:40)
[2022-09-20] MEDS: HYDROmorphone HCl 1 MG/ML SYRINGE 0.25 MG IVPUSH ×2 (15:41→15:53)
[2022-09-20] MEDS: Morphine Sulfate 2 MG/ML CARTRIDGE 4 MG IVPUSH (18:23)
[2022-09-21] MEDS: Morphine Sulfate 2 MG/ML CARTRIDGE 4 MG IVPUSH ×4 (00:17→15:53)
[2022-09-21 03:48] VITALS: BP 122/60; PULSE 75; RESP 15; TEMP 36; O2SAT 97
[2022-09-21] MEDS: Acetaminophen 1,000 MG/100 ML PIGGYBACK 400 MG IV ×3 (08:13→20:38)
[2022-09-21] MEDS: Lactated Ringers 1,000 ML 50 ML IVCONT ×2 (08:13→20:45)
--- NOTE | 2022-09-21 08:20 | HO.POSTANES ---
Post Anesthesia Evaluation Post Anesthesia Evaluation Vital Signs: Vital Signs Temp Pulse Resp BP Pulse Ox O2 Del Method 09/21/22 03:48 96.8 F 75 15 122/60 97 Room Air 09/20/22 23:27 98.0 F 100 15 122/71 95 Room Air Anesthesia: General Endotracheal-GETA Mental Status: Awake Pain Control: Satisfactory Nausea/Vomiting: None Hydration: Adequate Anesthesia-Related Issues: No Anes. Related Issues
--- NOTE | 2022-09-21 08:29 | P.PNGS_ITS ---
Subjective Subjective Date of Service: 09/21/22 Interval history: She is feeling ok this morning. Has pain on and off that is relieved by medications but states it takes long to start working. She denies nausea, vomiting. Denies passing flatus. Has not been OOB yet. She c/o that the NGT tape is near her mouth and she cannot do the IS. Physical Exam Vital Signs: Vital Signs: Last Vital Signs Temp 96.8 F 09/21/22 03:48 Pulse 75 09/21/22 03:48 Resp 15 09/21/22 03:48 BP 122/60 09/21/22 03:48 Pulse Ox 97 09/21/22 03:48 O2 Del Method 09/21/22 03:48 O2 Flow Rate 2 09/20/22 16:07 BMI result Body Mass Index 27.1 Const: General: comfortable, no acute distress and alert Or ientation/consciousness: patient oriented x3 HEENT: Other: NGT in place right nare Resp: Effort & Inspection: normal respiratory effort GI: Inspection: Yes distended (minimal) and Yes incision (dressing intact) Palpation (GI): Soft to palpation and Tenderness to palpation present (GI) (mild, incisional) Percussion: Yes normal to percussion Skin: General skin exam: no rashes or lesions noted Neuro: General: patient oriented x3 Extrem: General: Yes no clubbing, cyanosis or edema Objective Data Active Medications Lactated Ringer's (Lr) 1,000 mls @ 80 mls/hr IVCONT .[id number] [facility] Last Admin: 09/21/22 08:13 Dose: 50 mls/hr Documented By: SANJUANITA Acetaminophen (Ofirmev) 1,000 mg in 100 mls @ 400 mls/hr IV Q6H [facility] Last Admin: 09/21/22 08:13 Dose: 400 mls/hr Documented By: SANJUANITA Morphine Sulfate (Morphine Sulfate 2 Mg/Ml Cartridge) 4 mg IVPUSH Q4H PRN; Protocol PRN Reason: Pain, Severe (Pain Scale 7-10) Last Admin: 09/21/22 08:25 Dose: 4 mg Documented By: SANJUANITA Ondansetron HCl (Ondansetron Hcl 4 Mg/2 Ml Vial) 4 mg IVPUSH Q8H PRN PRN Reason: Nausea and Vomiting Last Admin: 09/20/22 15:40 Dose: 4 mg Documented By: CALEB Sodium Chloride (0.9 % Sodium Chloride Flush 3 Ml Syringe) [facility] Admin: 09/21/22 08:28 Dose: Not Given Documented By: SANJUANITA Non-Admin Reason: IV Running Labs CBC & Chem 7: 09/18/22 05:09 09/19/22 09:45 Microbiology Microbiology Results: Microbiology 09/18/22 02:41 Blood Culture - Preliminary Blood - Venous No growth after 48 hours. 09/18/22 02:41 Blood Culture - Preliminary Blood - Venous No growth after 48 hours. Procedures Date of Service Date of Service: 09/21/22 Progress Note: A&P Assessment and plan (1) Carcinoid tumor: Status: Acute (2) Small bowel obstruction: Status: Acute (3) S/P exploratory laparotomy: Status: Acute Plan 62 year old female with hx of carcinoid tumor admitted with SBO now POD #1 s/p ex lap, lysis of adhesions. Found to have small bowel obstruction due to adhesions adjacent to prior resection. She is doing well this morning. NGT has had scanty output overnight. Her abdomen is soft with minimal distention, appropriate post op tenderness. Dressings c/d/i. Will clamp NGT this am for 4 hrs, check residual. Unclamp sooner if develops worsening abd pain, n/v. Possible d/c later today. Encouraged to get OOB today to recliner. Will continue IVF while NPO for now. She is comfortable with plan. Ofirmev added for analgesia. Time Spent With Patient Time: Total time spent is greater than 50% in coordination of care (as documented) at patient's floor/unit and/or counseling patient: Quality Stroke Does the patient have a stroke diagnosis?: No VTE Prior VTE?: No VTE Risk Level:: Medical - moderate - high VTE Device Contraindication: N/A - Device Ordered VTE Drug Contraindication: Treatment Not Indicated
--- NOTE | 2022-09-21 08:32 | HO.PM.IMPN ---
Subjective Subjective Date of Service: 09/21/22 Interval History: Seen in f/u sbo, concern for recurrent carcinoid interval history: doesn't feel worse , NGT in some abd discomfort. No BM, no flatus Review of Systems no fever +abd distention, Physical Exam Vital Signs: Vital Signs: Last Vital Signs Temp 96.8 F 09/21/22 03:48 Pulse 75 09/21/22 03:48 Resp 15 09/21/22 03:48 BP 122/60 09/21/22 03:48 Pulse Ox 97 09/21/22 03:48 O2 Del Method 09/21/22 03:48 O2 Flow Rate 2 09/20/22 16:07 BMI result Body Mass Index 27.1 Const: Other: General: AO X 3, no acute distress Resp: CTA bilateral CVS: S1,S2,RRR GI: -no BS, minimal tenderness Skin: No rash Neuro: motor grossly intact Psych: appropriate affect Objective Data Active Medications Lactated Ringer's (Lr) 1,000 mls @ 80 mls/hr IVCONT .[id number] [facility] Last Admin: 09/21/22 08:13 Dose: 50 mls/hr Documented By: SANJUANITA Acetaminophen (Ofirmev) 1,000 mg in 100 mls @ 400 mls/hr IV Q6H [facility] Last Infusion: 09/21/22 08:29 Dose: 0 mls/hr Documented By: SANJUANITA Morphine Sulfate (Morphine Sulfate 2 Mg/Ml Cartridge) 4 mg IVPUSH Q4H PRN; Protocol PRN Reason: Pain, Severe (Pain Scale 7-10) Last Admin: 09/21/22 08:25 Dose: 4 mg Documented By: SANJUANITA Ondansetron HCl (Ondansetron Hcl 4 Mg/2 Ml Vial) 4 mg IVPUSH Q8H PRN PRN Reason: Nausea and Vomiting Last Admin: 09/20/22 15:40 Dose: 4 mg Documented By: CALEB Sodium Chloride (0.9 % Sodium Chloride Flush 3 Ml Syringe) 3 ml IVFLUSH QSHIFT [facility] Last Admin: 09/21/22 08:28 Dose: Not Given Documented By: SANJUANITA Non-Admin Reason: IV Running Labs CBC & Chem 7: 09/18/22 05:09 09/19/22 09:45 Microbiology Microbiology Results: Microbiology 09/18/22 02:41 Blood Culture - Preliminary Blood - Venous No growth after 48 hours. 09/18/22 02:41 Blood Culture - Preliminary Blood - Venous No growth after 48 hours. Assessment and Plan (1) S/P exploratory laparotomy: Status: Acute (2) Small bowel obstruction: Status: Acute Plan 62-year-old female with past medical history of paroxysmal AFib,? 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 of funeral home associate tract, history of carcinoid tumor presents to the hospital with complaints of abdominal pain found to have small-bowel obstruction # high grade small-bowel obstruction d/t adhesion -s/p Exploratory laparotomy, lysis of adhesions on 09/20 -NGT stil in place -further management and diet advancement per surgery # acute hyperkalemia, recheck labs today # Permanent AFIB--rate controlled, holding eliquis for surgery. Will check with surgery when to restart DVT prophylaxis:? SCDs Need for inpaitent:Post of care after small bowell surgery Quality Stroke Does the patient have a stroke diagnosis?: No VTE Prior VTE?: No VTE Risk Level:: Medical - moderate - high VTE Device Contraindication: N/A - Device Ordered VTE Drug Contraindication: Treatment Not Indicated
--- NOTE | 2022-09-21 11:10 | PC.NURSE ---
Assessed proper placement by injecting air and auscultating + sounds over abdomen. Less than 5cc of gastric fluids aspirated. Intermittent suction reapplied
[2022-09-21 12:20] VITALS: BP 130/63; PULSE 76; RESP 16; TEMP 36.3; O2SAT 98
--- NOTE | 2022-09-21 12:44 | P.PNHO-ONC_ITS ---
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 She has had significant weight loss over the last year. No facial flushing, bronchospasm, cough or wheezing. A CT abdomen/pelvis in February 2019 showed mesenteric mass, measuring 4.4 x 3.6 x 3.6 cm encircling the superior mesenteric artery over a length of 4-5 cm. Tethering of the small bowel mesentery surrounding the mass with engorgement or infiltration along the vasa recta. Mild associated small bowel thickening, no obstruction. Chest x-ray was negative. Urine 24 hour showed no elevation of 5 HIAA, 2.5 mg/24 hours. Workup for normocytic anemia- Normal iron studies, vitamin B12 and folate levels. Retic count, serum protein electrophoresis and immunofixation in February 2020 showed no monoclonal protein. Initial chromogranin a level elevated at 11 78 NG/mL. She had symptoms of diarrhea/carcinoid symptoms. She started octreotide LAR 30 mg IM once a month from March 2019. Interval History Interval history: she is feeling better overall today. NG tube has been removed, she is going to try clear liquids. She has not yet passed gas. No fever or chills. Review of Systems - Constitutional Reports as per HPI, Reports no additional constitutional complaints [facility] Medical History: Medical History (Last Reviewed 09/20/22 @ 12:50 by Nia Jennings RN) Afib Anemia Arthritis Asthma Colon polyp Constipation Diabetes Environmental allergies Gastric polyp GERD (gastroesophageal reflux disease) Hyperlipemia IBS (irritable bowel syndrome) Lipid disorder Neuroendocrine neoplasm of gastrointestinal tract Overactive bladder Paroxysmal atrial fibrillation Vitamin D deficiency Functional capacity: uses cane/walker Family History: Family History (Last Reviewed 09/18/22 @ 14:43 by Manuel Johnson MD) Father Afib Pneumonia Brother Afib Heart disease Brother Heart disease Mother Unknown family medical history Surgical History: Surgical History (Last Reviewed 09/20/22 @ 12:50 by Nia Jennings RN) History of colonoscopy History of esophagogastroduodenoscopy Social History: Social History (Last Reviewed 09/18/22 @ 14:43 by Manuel Johnson MD) Living Situation History: Household Members: None Housing: Apartment Housing Other:: mental health association [facility] Do you presently have 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 or 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 Do you presently have 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 or other home services comment: [employer] for [employer] for laundry, and cleaning. 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 Tobacco History: Patient Tobacco Use Status: Never used Tobacco e-Cigarette/Vaping Use: Never Used Second Hand Smoke Exposure: No Occupation Assessmet: service: No Current occupational status: disabled Home Medications and Allergies Current Medications: Current Medications Lactated Ringer's (Lr) 1,000 mls @ 80 mls/hr IVCONT .[id number] [facility] Last Admin: 09/21/22 08:13 Dose: 50 mls/hr Acetaminophen (Ofirmev) 1,000 mg in 100 mls @ 400 mls/hr IV Q6H [facility] Last Infusion: 09/21/22 08:29 Dose: Infused Morphine Sulfate (Morphine Sulfate 2 Mg/Ml Cartridge) 4 mg IVPUSH Q4H PRN; Protocol PRN Reason: Pain, Severe (Pain Scale 7-10) Last Admin: 09/21/22 08:25 Dose: 4 mg Ondansetron HCl (Ondansetron Hcl 4 Mg/2 Ml Vial) 4 mg IVPUSH Q8H PRN PRN Reason: Nausea and Vomiting Last Admin: 09/20/22 15:40 Dose: 4 mg Oxycodone HCl (Oxycodone Hcl Immed Release 5 Mg Tablet) 5 mg PO Q4H PRN PRN Reason: Pain, Moderate (Pain Scale 4-6 Sodium Chloride (0.9 % Sodium Chloride Flush 3 Ml Syringe) 3 ml IVFLUSH QSHIFT [facility] Last Admin: 09/21/22 08:28 Dose: Not Given Home Medications Medication Instructions Recorded Confirmed Type loperamide 2 mg capsule 2 mg PO Q6H PRN Diarrhea 08/11/20 09/18/22 History albuterol sulfate 90 mcg/actuation 2 puff inhalation Q4-6H PRN 09/18/22 09/18/22 History aerosol inhaler Shortness Of Breath Or Wheezing cholecalciferol (vitamin D3) 25 1,000 unit PO BEDTIME 09/18/22 09/18/22 History mcg (1,000 unit) capsule ferrous sulfate 325 mg (65 mg 325 mg PO BID 09/18/22 09/18/22 History iron) tablet loratadine 10 mg tablet 10 mg PO BEDTIME 09/18/22 09/18/22 History montelukast 10 mg tablet 10 mg PO BEDTIME 09/18/22 09/18/22 History omeprazole 20 mg capsule,delayed 20 mg PO DAILY@0630 09/18/22 09/18/22 History release oxybutynin chloride 10 mg 10 mg PO BEDTIME 09/18/22 09/18/22 History tablet,extended release 24 hr simvastatin 20 mg tablet 20 mg PO BEDTIME 09/18/22 09/18/22 History Allergies Allergy/AdvReac Type Severity Reaction Status Date / Time Erythromycin Allergy Unknown GI upset, Verified 09/17/22 20:30 increases pain erythromycin base AdvReac Intermediate GI UPSET Verified 09/17/22 20:30 [Erythromycin Base] Motrin AdvReac Unknown GI Upset, Verified 09/17/22 20:30 increases pain Chocolate Allergy Mild RASH Uncoded 06/07/22 13:04 Environmental Allergy Unknown Unknown Uncoded 06/07/22 13:04 Exam Vital signs: Vital Signs Temp 97.3 F 09/21/22 12:20 Pulse 76 09/21/22 12:20 Resp 16 09/21/22 12:20 BP 130/63 09/21/22 12:20 Pulse Ox 98 09/21/22 12:20 O2 Del Method 09/21/22 12:20 O2 Flow Rate 2 09/20/22 16:07 Intake & Output 09/20/22 09/21/22 09/21/22 18:59 06:59 18:59 Intake Total 1100 / 1100 0 / 1100 1057.5 / 1057.5 Output Total 600 / 900 300 / 900 Balance 500 / 200 -300 / 200 1057.5 / 1057.5 Urine Output (Average ml/kg/hr) 0.42 0.42 Intake: Intake, Oral Amount 0 / 0 Intake, IV Amount 1100 / 1100 1057.5 / 1057.5 Acetaminophen 1,000 mg In 100 100 / 100 100 / 100 ml @ 400 mls/hr IV Q6H [facility] Rx#: [id number] Lactated Ringers 1,000 ml @ 50 1000 / 1000 957.5 / 957.5 mls/hr IVCONT .Q20H [facility] Rx#: [id number] Output: Output, Urine Amount 300 / 300 Output, Stool Amount 0 / 0 Output, Gastric Drainage Amount 600 / 600 Right Nare 600 / 600 Other: NPO Yes Yes Number of Incontinent Voids 1 Number of Unmeasured Voids 1 Urine Color Yellow Weight 58.967 kg BMI result Body Mass Index 27.1 - Constitutional Present: no acute distress - Routine HEENT Exam Head: Present: normal inspection - Routine Respiratory Exam Absent: accessory muscle use - Routine Cardiovascular Exam Cardiovascular: Present: S1, S2 - Routine Abdominal Exam Present: distended, hypoactive bowel sounds Data - Labs CBC & Chem 7: 09/18/22 05:09 09/19/22 09:45 Labs: 09/17/22 20:36 Ondansetron ODT [Zofran ODT] 4 mg TRANSLINGU ONCE ONE 09/17/22 20:39 Basic Metabolic Panel Stat Complete Blood Count Auto Diff Stat Lipase Stat Liver Panel Stat Magnesium Stat 09/17/22 22:01 ECG 12 lead EKG Stat EKG Documentation DIRECTED 09/17/22 22:16 ondansetron HCL [Zofran] 4 mg IVPUSH ONCE ONE 09/17/22 22:32 Potassium Stat 09/18/22 XR KUB Stat 09/18/22 00:03 CT abdomen pelvis w IV con Stat 09/18/22 00:15 UA CC w/rflx Micro + Cult Stat 09/18/22 00:22 Dextrose 50 % [D50] 50 gm IVPUSH ONCE ONE Insulin Regular, Human [Humulin R] 5 unit IVPUSH ONCE ONE Sodium Zirconium Cyclosilicate [Lokelma] 10 gm PO ONCE ONE 09/18/22 00:24 Calcium Gluconate/NaCl,Iso-Osm [Calcium Gluconate] 2 gm in 100 ml IV ONCE 09/18/22 01:00 iohexoL 350 MG/ML [Omnipaque 350 MG/ML] 85 ml IV ONCE ONE 09/18/22 01:27 Acetaminophen [Tylenol] 650 mg PO ONCE ONE 09/18/22 01:47 Morphine Sulfate 4 mg IVPUSH ONCE ONE 09/18/22 01:54 Lidocaine HCl 4 % MPF w/MADgic [Xylocaine 4 % MPF w/MADgic] 1 appl TOPICAL ONCE ONE Prochlorperazine Edisylate [Compazine] 10 mg IVPUSH ONCE ONE 09/18/22 02:25 Lidocaine HCl 2 % Urojet [Xylocaine 2 % Urojet] 10 ml .ROUTE .STK-MED ONE 09/18/22 02:26 Acetaminophen Supp [Tylenol Supp] 650 mg UT Q6H PRN Morphine Sulfate 4 mg IVPUSH Q4H PRN 09/18/22 02:30 NPO Diet 09/18/22 02:39 Lactic Acid Stat 09/18/22 02:40 Potassium Stat 09/18/22 02:45 Lactated Ringers [Lr] 1,000 ml IVCONT 100 mls/hr 09/18/22 05:09 Basic Metabolic Panel DAILY@0600 Complete Blood Count Auto Diff DAILY@0600 ~Lactic Acid-LAB USE ONLY Stat 09/18/22 05:48 COVID-19 ID NOW ([employer]) Stat 09/18/22 15:02 Nursing Notification [Communication Order] NOW 09/18/22 15:10 Hemoglobin A1c Routine 09/19/22 XR chest 1V Stat 09/19/22 09:45 BMP [Basic Metabolic Panel] Routine 09/20/22 XR abdomen 1V Stat 09/20/22 14:05 Rocuronium [place] [Zemuron] 100 mg IV .STK-MED ONE dexAMETHasone sod phosphate [Decadron] 4 mg .ROUTE .STK-MED ONE ondansetron HCL [Zofran] 4 mg .ROUTE .STK-MED ONE propofoL [Diprivan] 200 mg IVPUSH .STK-MED ONE 09/20/22 14:23 fentaNYL citrate/PF [Sublimaze] 100 mcg .ROUTE .STK-MED ONE 09/20/22 14:45 ceFAZolin Sodium/Dextrose,Iso [Ancef] 2 gm in 50 ml IV PREOP 09/20/22 14:51 Transfer Order Routine 09/20/22 15:04 Sugammadex Sodium [[place]] 200 mg IVPUSH .STK-MED ONE 09/20/22 15:20 Vital Signs Q1H Vital Signs Q5MIN 09/20/22 15:23 Acetaminophen [Ofirmev] 1,000 mg in 100 ml IV ONCE 09/20/22 15:25 HYDROmorphone HCl [Dilaudid] 0.25 mg IVPUSH Q5M PRN Laboratory Last Values WBC 10.2 X10*3/uL (4.8-10.8) 09/18/22 05:09 RBC 3.84 X10*6/uL (4.20-5.50) L 09/18/22 05:09 Hgb 11.6 g/dl (12.0-16.0) L 09/18/22 05:09 Hct 36.8 % (37.0-47.0) L 09/18/22 05:09 MCV 95.8 fL (80.0-98.0) 09/18/22 05:09 MCH 30.2 pg (27.0-33.0) 09/18/22 05:09 MCHC 31.5 g/dl (31.0-35.0) 09/18/22 05:09 RDW 14.6 % (11.0-16.0) 09/18/22 05:09 Plt Count 284 X10*3/uL (160-400) 09/18/22 05:09 MPV 11.1 fL (9.4-12.3) 09/18/22 05:09 Immature Gran % (Auto) 0.4 % (0.0-0.4) 09/18/22 05:09 Neut % (Auto) 87.1 % (45-73) H 09/18/22 05:09 Lymph % (Auto) 8.0 % (20-40) L 09/18/22 05:09 [place] % (Auto) 4.3 % (2-11) 09/18/22 05:09 Eos % (Auto) 0.1 % (0-4) 09/18/22 05:09 Baso % (Auto) 0.1 % (0-2) 09/18/22 05:09 Lymph # (Auto) 0.8 X10*3/uL (1.2-4.9) L 09/18/22 05:09 [place] # (Auto) 0.4 X10*3/uL (0.1-1.2) 09/18/22 05:09 Eos # (Auto) 0.0 X10*3/uL (0.0-0.4) 09/18/22 05:09 Baso # (Auto) 0.0 X10*3/uL (0.0-0.2) 09/18/22 05:09 Abs Immat Gran (auto) 0.04 X10*3/uL (0.00-0.03) H 09/18/22 05:09 Absolute Neuts (auto) 8.9 x10*3/uL (2.0-8.3) H 09/18/22 05:09 Absolute Nucleated RBC 0.000 X10*3/uL (0.0-0.012) 09/18/22 05:09 Nucleated RBC % (auto) 0.0 /100WBC (0.0-0.2) 09/18/22 05:09 Sodium 142 mmol/L (135-145) 09/19/22 09:45 Potassium 4.6 mmol/L (3.3-5.1) 09/19/22 09:45 Chloride 102 mmol/L (96-108) 09/19/22 09:45 Carbon Dioxide 29 mmol/L (22-29) 09/19/22 09:45 Anion Gap 16 (12-20) 09/19/22 09:45 BUN 11 mg/dL (9-16) 09/19/22 09:45 Creatinine 0.80 mg/dL (0.5-1.4) 09/19/22 09:45 Estim Creat Clear Calc 54.7 09/19/22 09:45 Estimated GFR > 60 09/19/22 09:45 Random Glucose 124 mg/dL (60-115) H 09/19/22 09:45 Estimat Average Glucose 131 mg/dL 09/18/22 15:10 Hemoglobin A1c % 6.2 % 09/18/22 15:10 Lactic Acid 2.8 mmol/L (0.5-2.0) H* 09/18/22 02:39 Lactic Acid F/U @ 2Hr 1.8 mmol/L (0.5-2.0) 09/18/22 05:09 Calcium 8.9 mg/dL (8.4-10.2) D 09/19/22 09:45 Magnesium 2.1 mg/dL (1.6-2.6) 09/17/22 20:39 Total Bilirubin 0.4 mg/dL (0.0-1.0) 09/17/22 20:39 Direct Bilirubin 0.2 mg/dL (0.0-0.5) 09/17/22 20:39 AST 17 U/L (5-31) D 09/17/22 20:39 ALT 9 U/L (0-31) 09/17/22 20:39 Alkaline Phosphatase 70 U/L (39-117) 09/17/22 20:39 Total Protein 7.5 g/dL (6.5-8.0) 09/17/22 20:39 Albumin 4.6 g/dL (3.5-5.0) 09/17/22 20:39 Lipase 27 U/L (8-78) 09/17/22 20:39 Urine Color Yellow 09/18/22 00:15 Urine Appearance Clear 09/18/22 00:15 Urine pH 5.0 (5.0-9.0) 09/18/22 00:15 Ur Specific [place] 1.025 (1.005-1.025) 09/18/22 00:15 Urine Protein Negative mg/dL (Neg-Trace) 09/18/22 00:15 Urine Glucose (UA) Negative mg/dL (Negative) 09/18/22 00:15 Urine Ketones Trace mg/dL (Negative) 09/18/22 00:15 Urine Blood Negative (Negative) 09/18/22 00:15 Urine Nitrite Negative (Negative) 09/18/22 00:15 Ur Leukocyte Esterase Negative (Negative) 09/18/22 00:15 COVID-19 (JANET) Negative (Negative) 09/18/22 05:48 COVID-19 Clin Com See Note 09/18/22 05:48 - Imaging Radiologist's impression: ITS Impressions Abdomen/Pelvis CT 09/18/22 01:00 IMPRESSION: 1. High-grade small bowel obstruction in the central abdomen where a loop of small bowel passes the region of abnormal soft tissue thickening in the central small bowel mesentery, potentially due to local tumor involvement or adhesions. 2. A 1.5 x 2 cm focus of nodular wall thickening in the small bowel in the right upper quadrant, potentially corresponding to a small bowel lesion. 3. A 3 mm solid pulmonary nodule in the left lower lobe. This region was not included on multiple CTs of the abdomen and pelvis dating back to 2018. Consider follow-up per oncology protocol. 4. Small sliding-type hiatal hernia. Fleischner guidelines were followed. KUB X-Ray 09/18/22 03:56 IMPRESSION: 1. Enteric tube tip terminates in the stomach with side-port at the diaphragmatic hiatus. Consider advancing another 3 cm. 2. Dilated loops of small bowel in the central abdomen. Chest X-Ray 09/19/22 05:03 IMPRESSION: NG tube tip terminates in the region of the gastric antrum. Abdomen X-Ray 09/20/22 15:19 IMPRESSION: 1. No unexpected radiopaque foreign bodies. 2. Nonobstructive bowel pattern. Assessment and Plan Patient Active problem list reviewed?: Yes (1) Neuroendocrine neoplasm of gastrointestinal tract Status: Chronic Assessment and plan: 1. 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 Soft tissue mass in the small bowel mese ntry measuring 4.4 x 3.6 x 3.6 cm encircling the superior mesenteric artery. Partial excision was performed 04/15/2019, well-differentiated 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 tumor extending to tissue margins. Tumor could not be entirely resected as it was encircling and adherent to superior mesenteric artery. Chromogranin a was elevated at 1178 NG/mL. She had symptoms of diarrhea, carcinoid symptoms. She is on octreotide LAR 30 mg IM once a month since March 2019. Her last CT scan in November 2021 showed no progression of disease. She was doing well until this past weekend when she presented with acute symptoms of bowel obstruction. Patient has undergone laparoscopic surgery and lysis of adhesions. No tumor progression noted. NG tube has been removed and clear liquid diet has been recommended. She follow-up with Oncology upon discharge. Thank you - Time Spent With Patient Time Spent with Patient (in minutes): 8
[2022-09-21 15:04] VITALS: BP 138/82; PULSE 68; RESP 18; TEMP 36.7; O2SAT 95
[2022-09-21] MEDS: 0.9 % Sodium Chloride Flush 3 ML SYRINGE IVFLUSH (15:55)
[2022-09-21 20:44] VITALS: BP 136/76; PULSE 86; RESP 16; TEMP 36.7; O2SAT 97
[2022-09-21 23:33] VITALS: BP 113/53; PULSE 82; RESP 18; TEMP 36.8; O2SAT 94
[2022-09-22] MEDS: Acetaminophen 1,000 MG/100 ML PIGGYBACK 400 MG IV ×4 (01:54→20:02)
[2022-09-22 03:51] VITALS: BP 112/57; PULSE 73; RESP 18; TEMP 36.3; O2SAT 95
[2022-09-22 08:00] VITALS: BP 120/59; PULSE 75; RESP 18; TEMP 36.4; O2SAT 96
--- NOTE | 2022-09-22 08:06 | P.PNGS_ITS ---
Subjective Subjective Date of Service: 09/22/22 Interval history: Jack reports no change in her symptoms; denies nausea or vomiting. Took some liquids yesterday but does not feel she could advance to solids today however. Reports maybe passing some flatus but denies any bowel movement. Physical Exam Vital Signs: Vital Signs: Last Vital Signs Temp 97.6 F 09/22/22 08:00 Pulse 75 09/22/22 08:00 Resp 18 09/22/22 08:00 BP 120/59 L 09/22/22 08:00 Pulse Ox 96 09/22/22 08:00 O2 Del Method 09/22/22 08:00 O2 Flow Rate 2 09/20/22 16:07 BMI result Body Mass Index 27.1 Const: General: comfortable Nutritional Appearance: well nourished Orientation/consciousness: patient oriented x3 Limitations: no limitations Resp: Other: Breathing comfortably on room air, no respiratory distress GI: Other: abdomen is soft and minimally distended. Bowel sounds are hypoactive. Midline incision is clean, dry, and intact without redness or discharge. Neuro: General: patient oriented x3 Extrem: General: No edema Objective Data Active Medications Lactated Ringer's (Lr) 1,000 mls @ 80 mls/hr IVCONT .[id number] [facility] Last Admin: 09/21/22 20:45 Dose: 50 mls/hr Documented By: GRIFFIN Acetaminophen (Ofirmev) 1,000 mg in 100 mls @ 400 mls/hr IV Q6H [facility] Last Infusion: 09/22/22 07:58 Dose: 0 mls/hr Documented By: PILLO Morphine Sulfate (Morphine Sulfate 2 Mg/Ml Cartridge) 4 mg IVPUSH Q4H PRN; Protocol PRN Reason: Pain, Severe (Pain Scale 7-10) Last Admin: 09/21/22 15:53 Dose: 4 mg Documented By: SANJUANITA Ondansetron HCl (Ondansetron Hcl 4 Mg/2 Ml Vial) 4 mg IVPUSH Q8H PRN PRN Reason: Nausea and Vomiting Last Admin: 09/20/22 15:40 Dose: 4 mg Documented By: CALEB Oxycodone HCl (Oxycodone Hcl Immed Release 5 Mg Tablet) 5 mg PO Q4H PRN PRN Reason: Pain, Moderate (Pain Scale 4-6 Sodium Chloride (0.9 % Sodium Chloride Flush 3 Ml Syringe) 3 ml IVFLUSH QSHIFT [facility] Last Admin: 09/22/22 07:39 Dose: Not Given Documented By: PILLO Non-Admin Reason: IV Running Labs CBC & Chem 7: 09/18/22 05:09 09/19/22 09:45 Procedures Date of Service Date of Service: 09/22/22 Progress Note: A&P Assessment and plan (1) S/P exploratory laparotomy: Status: Acute (2) Carcinoid tumor: Status: Acute (3) Small bowel obstruction: Status: Acute Plan POD#2 s/p Exploratory laparotomy and lysis of adhesions for small-bowel obstruction. She reports passing some flatus but no bowel movement. Nasogastric tube was removed yesterday and she was started on clear liquids. I will keep her on clear liquids for now and possibly advanced over the next several days if this is tolerated. She was encouraged to get out of bed and ambulate a performed breathing exercises. She expressed understanding and agrees with the plan. Time Spent With Patient Time: Total time spent is greater than 50% in coordination of care (as documented) at patient's floor/unit and/or counseling patient: Quality Stroke Does the patient have a stroke diagnosis?: No VTE Prior VTE?: No VTE Risk Level:: Medical - moderate - high VTE Device Contraindication: N/A - Device Ordered VTE Drug Contraindication: Treatment Not Indicated
--- NOTE | 2022-09-22 08:09 | HO.PM.IMPN ---
Subjective Subjective Date of Service: 09/22/22 Interval History: Seen in f/u sbo, concern for recurrent carcinoid interval history: feels better, tolerating liquid diet, pain is controlled Review of Systems no fever +mild abd pain Physical Exam Vital Signs: Vital Signs: Last Vital Signs Temp 97.6 F 09/22/22 08:00 Pulse 75 09/22/22 08:00 Resp 18 09/22/22 08:00 BP 120/59 L 09/22/22 08:00 Pulse Ox 96 09/22/22 08:00 O2 Del Method 09/22/22 08:00 O2 Flow Rate 2 09/20/22 16:07 BMI result Body Mass Index 27.1 Const: Other: General: AO X 3, no acute distress Resp: CTA bilateral CVS: S1,S2,RRR GI: + BS, minimal tenderness, no distention Skin: No rash Neuro: motor grossly intact Psych: appropriate affect Objective Data Active Medications Lactated Ringer's (Lr) 1,000 mls @ 80 mls/hr IVCONT .[id number] [facility] Last Admin: 09/21/22 20:45 Dose: 50 mls/hr Documented By: GRIFFIN Acetaminophen (Ofirmev) 1,000 mg in 100 mls @ 400 mls/hr IV Q6H [facility] Last Infusion: 09/22/22 07:58 Dose: 0 mls/hr Documented By: PILLO Morphine Sulfate (Morphine Sulfate 2 Mg/Ml Cartridge) 4 mg IVPUSH Q4H PRN; Protocol PRN Reason: Pain, Severe (Pain Scale 7-10) Last Admin: 09/21/22 15:53 Dose: 4 mg Documented By: SANJUANITA Ondansetron HCl (Ondansetron Hcl 4 Mg/2 Ml Vial) 4 mg IVPUSH Q8H PRN PRN Reason: Nausea and Vomiting Last Admin: 09/20/22 15:40 Dose: 4 mg Documented By: CALEB Oxycodone HCl (Oxycodone Hcl Immed Release 5 Mg Tablet) 5 mg PO Q4H PRN PRN Reason: Pain, Moderate (Pain Scale 4-6 Sodium Chloride (0.9 % Sodium Chloride Flush 3 Ml Syringe) 3 ml IVFLUSH QSHIFT [facility] Last Admin: 09/22/22 07:39 Dose: Not Given Documented By: PILLO Non-Admin Reason: IV Running Labs CBC & Chem 7: 09/18/22 05:09 09/19/22 09:45 Assessment and Plan (1) S/P exploratory laparotomy: Status: Acute (2) Small bowel obstruction: Status: Acute Plan 62-year-old female with past medical history of paroxysmal AFib,? 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 SCDs, eliquis as above Need for inpaitent:Post of care after small bowell surgery Quality Stroke Does the patient have a stroke diagnosis?: No VTE Prior VTE?: No VTE Risk Level:: Medical - moderate - high VTE Device Contraindication: N/A - Device Ordered VTE Drug Contraindication: Treatment Not Indicated
[2022-09-22] MEDS: Dronedarone HCl 400 MG TABLET PO ×2 (10:09→20:02)
[2022-09-22] MEDS: Omeprazole 20 MG CAPSULE.DR PO (10:09)
[2022-09-22] MEDS: Ferrous Sulfate 324 MG TABLET.DR PO ×2 (10:10→20:01)
[2022-09-22] MEDS: Apixaban 5 MG TABLET PO ×2 (10:10→20:01)
[2022-09-22] MEDS: Lactated Ringers 1,000 ML 50 ML IVCONT (10:11)
[2022-09-22] MEDS: Morphine Sulfate 2 MG/ML CARTRIDGE 4 MG IVPUSH ×2 (10:28→21:51)
--- NOTE | 2022-09-22 10:45 | PM.HEMONCPN ---
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 She has had significant weight loss over the last year. No facial flushing, bronchospasm, cough or wheezing. A CT abdomen/pelvis in February 2019 showed mesenteric mass, measuring 4.4 x 3.6 x 3.6 cm encircling the superior mesenteric artery over a length of 4-5 cm. Tethering of the small bowel mesentery surrounding the mass with engorgement or infiltration along the vasa recta. Mild associated small bowel thickening, no obstruction. Chest x-ray was negative. Urine 24 hour showed no elevation of 5 HIAA, 2.5 mg/24 hours. Workup for normocytic anemia- Normal iron studies, vitamin B12 and folate levels. Retic count, serum protein electrophoresis and immunofixation in February 2020 showed no monoclonal protein. Initial chromogranin a level elevated at 11 78 NG/mL. She had symptoms of diarrhea/carcinoid symptoms. She started octreotide LAR 30 mg IM once a month from March 2019. Interval History Interval history: She seems muh more comfortable. She is eating and conversing with ease. Review of Systems - Constitutional Reports anorexia - Eyes Reports irritation - ENT Reports system reviewed and no additional complaints, except as documented - Cardiovascular Reports fast heart rate - Respiratory Reports cough - Gastrointestinal Reports change in stools - Genitourinary Reports absent period - Musculoskeletal Reports muscle weakness PMF Medical History: Medical History (Last Reviewed 09/20/22 @ 12:50 by Nia Jennings RN) Afib Anemia Arthritis Asthma Colon polyp Constipation Diabetes Environmental allergies Gastric polyp GERD (gastroesophageal reflux disease) Hyperlipemia IBS (irritable bowel syndrome) Lipid disorder Neuroendocrine neoplasm of gastrointestinal tract Overactive bladder Paroxysmal atrial fibrillation Vitamin D deficiency Functional capacity: uses cane/walker Family History: Family History (Last Reviewed 09/18/22 @ 14:43 by Manuel Johnson MD) Father Afib Pneumonia Brother Afib Heart disease Brother Heart disease Mother Unknown family medical history Surgical History: Surgical History (Last Reviewed 09/20/22 @ 12:50 by Nia Jennings RN) History of colonoscopy History of esophagogastroduodenoscopy Social History: Social History (Last Reviewed 09/18/22 @ 14:43 by Manuel Johnson MD) Living Situation History: Household Members: None Housing: Apartment Housing Other:: [facility] health [facility] Do you presently have 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 or 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 Do you presently have 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 or other home services comment: [employer] for [employer] for laundry, and cleaning. 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 Tobacco History: Patient Tobacco Use Status: Never used Tobacco e-Cigarette/Vaping Use: Never Used Second Hand Smoke Exposure: No Occupation Assessmet: service: No Current occupational status: disabled Home Medications and Allergies Current Medications: Current Medications Albuterol Sulfate (Albuterol Sulfate 90 Mcg 8 Gm Inhaler) 2 puff INHALE Q4H PRN PRN Reason: Shortness Of Breath Or Wheezing Apixaban (Apixaban 5 Mg Tablet) 5 mg PO BID [facility] Last Admin: 09/22/22 10:10 Dose: 5 mg Atorvastatin Calcium (Atorvastatin Calcium 10 Mg Tablet) 10 mg PO BEDTIME [facility] Dicyclomine HCl (Dicyclomine Hcl 10 Mg Capsule) 20 mg PO TID PRN PRN Reason: abdominal pain Docusate Sodium (Docusate Sodium 100 Mg Capsule) 200 mg PO BEDTIME PRN PRN Reason: constipation Dronedarone (Dronedarone Hcl 400 Mg Tablet) 400 mg PO BID [facility] Last Admin: 09/22/22 10:09 Dose: 400 mg Ferrous Sulfate (Ferrous Sulfate 324 Mg Tablet.Dr) 324 mg PO BID [facility] Last Admin: 09/22/22 10:10 Dose: 324 mg Lactated Ringer's (Lr) 1,000 mls @ 80 mls/hr IVCONT .[id number] [facility] Last Infusion: 09/22/22 10:31 Dose: 0 mls/hr Acetaminophen (Ofirmev) 1,000 mg in 100 mls @ 400 mls/hr IV Q6H [facility] Last Infusion: 09/22/22 07:58 Dose: Infused Loperamide HCl (Loperamide Hcl 2 Mg Capsule) 2 mg PO Q6H PRN PRN Reason: Diarrhea Loratadine (Loratadine 10 Mg Tablet) 10 mg PO BEDTIME [facility] Meclizine HCl (Meclizine Hcl 25 Mg Tablet) 25 mg PO DAILY PRN PRN Reason: motion sickness Montelukast Sodium (Montelukast Sodium 10 Mg Tablet) 10 mg PO BEDTIME [facility] Morphine Sulfate (Morphine Sulfate 2 Mg/Ml Cartridge) 4 mg IVPUSH Q4H PRN; Protocol PRN Reason: Pain, Severe (Pain Scale 7-10) Last Admin: 09/22/22 10:28 Dose: 4 mg Omeprazole (Omeprazole 20 Mg Capsule.Dr) 20 mg PO DAILY@0630 [facility] Last Admin: 09/22/22 10:09 Dose: 20 mg Ondansetron HCl (Ondansetron Hcl 4 Mg/2 Ml Vial) 4 mg IVPUSH Q8H PRN PRN Reason: Nausea and Vomiting Last Admin: 09/20/22 15:40 Dose: 4 mg Oxybutynin Chloride (Oxybutynin Chloride Er 5 Mg Tab.Er.24) 10 mg PO BEDTIME [facility] Oxycodone HCl (Oxycodone Hcl Immed Release 5 Mg Tablet) 5 mg PO Q4H PRN PRN Reason: Pain, Moderate (Pain Scale 4-6 Sodium Chloride (0.9 % Sodium Chloride Flush 3 Ml Syringe) 3 ml IVFLUSH QSHIFT [facility] Last Admin: 09/22/22 07:39 Dose: Not Given Vitamin D (Cholecalciferol (Vitamin D3) 25 Mcg Tablet) 25 mcg PO BEDTIME [facility] Home Medications Medication Instructions Recorded Confirmed Type loperamide 2 mg capsule 2 mg PO Q6H PRN Diarrhea 08/11/20 09/18/22 History albuterol sulfate 90 mcg/actuation 2 puff inhalation Q4-6H PRN 09/18/22 09/18/22 History aerosol inhaler Shortness Of Breath Or Wheezing cholecalciferol (vitamin D3) 25 1,000 unit PO BEDTIME 09/18/22 09/18/22 History mcg (1,000 unit) capsule ferrous sulfate 325 mg (65 mg 325 mg PO BID 09/18/22 09/18/22 History iron) tablet loratadine 10 mg tablet 10 mg PO BEDTIME 09/18/22 09/18/22 History montelukast 10 mg tablet 10 mg PO BEDTIME 09/18/22 09/18/22 History omeprazole 20 mg capsule,delayed 20 mg PO DAILY@0630 09/18/22 09/18/22 History release oxybutynin chloride 10 mg 10 mg PO BEDTIME 09/18/22 09/18/22 History tablet,extended release 24 hr simvastatin 20 mg tablet 20 mg PO BEDTIME 09/18/22 09/18/22 History Allergies Allergy/AdvReac Type Severity Reaction Status Date / Time Erythromycin Allergy Unknown GI upset, Verified 09/17/22 20:30 increases pain erythromycin base AdvReac Intermediate GI UPSET Verified 09/17/22 20:30 [Erythromycin Base] Motrin AdvReac Unknown GI Upset, Verified 09/17/22 20:30 increases pain Chocolate Allergy Mild RASH Uncoded 06/07/22 13:04 Environmental Allergy Unknown Unknown Uncoded 06/07/22 13:04 Exam Vital signs: Vital Signs Temp 97.6 F 09/22/22 08:00 Pulse 75 09/22/22 08:00 Resp 18 09/22/22 08:00 BP 120/59 L 09/22/22 08:00 Pulse Ox 96 09/22/22 08:00 O2 Del Method 09/22/22 08:00 O2 Flow Rate 2 09/20/22 16:07 Intake & Output 09/21/22 09/22/22 09/22/22 18:59 06:59 18:59 Intake Total 1517.5 / 2704.167 1186.667 / 2704.167 788.334 / 788.334 Output Total 550 / 550 Balance 1517.5 / 2154.167 636.667 / 2154.167 788.334 / 788.334 Urine Output (Average ml/kg/hr) 0.78 0.78 Intake: Intake, Oral Amount 360 / 720 360 / 720 Intake, IV Amount 1157.5 / 1984.167 826.667 / 1983.167 788.334 / 788.334 Acetaminophen 1,000 mg In 100 200 / 400 200 / 400 100 / 100 ml @ 400 mls/hr IV Q6H [facility] Rx#: [id number] Lactated Ringers 1,000 ml @ 80 957.5 / 1584.167 626.667 / 1584.167 688.334 / 688.334 mls/hr IVCONT .[id number] [facility] Rx#: [id number] Output: Output, Urine Amount 0 / 0 Output, Urine Amount (Catheter) 550 / 550 Purewick 550 / 550 Other: Meal Refused No NPO No Lunch % Eaten <25 Dinner % Eaten 50% Number of Unmeasured Voids 1 Urine Bedpan Urine Color Yellow Yellow Weight 58.967 kg BMI result Body Mass Index 27.1 - Constitutional Present: no acute distress - Routine HEENT Exam Head: Present: atraumatic, normal inspection ENT: Present: mucous membranes moist - Routine Neck Exam Present: full ROM - Routine Respiratory Exam Present: decreased breath sounds. Absent: accessory muscle use - Routine Cardiovascular Exam Cardiovascular: Present: RRR, S1, S2 - Routine Abdominal Exam Present: diminished bowel sounds, distended, hypoactive bowel sounds - Routine Extremities Exam Present: nontender Data - Labs CBC & Chem 7: 09/18/22 05:09 09/19/22 09:45 - Imaging Radiologist's impression: ITS Impressions Abdomen/Pelvis CT 09/18/22 01:00 IMPRESSION: 1. High-grade small bowel obstruction in the central abdomen where a loop of small bowel passes the region of abnormal soft tissue thickening in the central small bowel mesentery, potentially due to local tumor involvement or adhesions. 2. A 1.5 x 2 cm focus of nodular wall thickening in the small bowel in the right upper quadrant, potentially corresponding to a small bowel lesion. 3. A 3 mm solid pulmonary nodule in the left lower lobe. This region was not included on multiple CTs of the abdomen and pelvis dating back to 2018. Consider follow-up per oncology protocol. 4. Small sliding-type hiatal hernia. Fleischner guidelines were followed. KUB X-Ray 09/18/22 03:56 IMPRESSION: 1. Enteric tube tip terminates in the stomach with side-port at the diaphragmatic hiatus. Consider advancing another 3 cm. 2. Dilated loops of small bowel in the central abdomen. Chest X-Ray 09/19/22 05:03 IMPRESSION: NG tube tip terminates in the region of the gastric antrum. Abdomen X-Ray 09/20/22 15:19 IMPRESSION: 1. No unexpected radiopaque foreign bodies. 2. Nonobstructive bowel pattern. Assessment and Plan Patient Active problem list reviewed?: Yes - Time Spent With Patient Time Spent with Patient (in minutes): 15
[2022-09-22 11:23] VITALS: BP 142/75; PULSE 66; RESP 18; TEMP 36.4; O2SAT 96
[2022-09-22 15:22] VITALS: BP 131/62; PULSE 65; RESP 18; TEMP 36.9; O2SAT 97
[2022-09-22 19:28] VITALS: BP 140/73; PULSE 82; RESP 18; TEMP 36.4; O2SAT 96
[2022-09-22] MEDS: Loratadine 10 MG TABLET PO (20:01)
[2022-09-22] MEDS: Atorvastatin Calcium 10 MG TABLET PO (20:01)
[2022-09-22] MEDS: Cholecalciferol (Vitamin D3) 25 MCG TABLET PO (20:01)
[2022-09-22] MEDS: Montelukast Sodium 10 MG TABLET PO (20:01)
[2022-09-22 23:28] VITALS: BP 134/75; PULSE 86; RESP 16; TEMP 36.8; O2SAT 97
[2022-09-23 02:37] VITALS: BP 150/85; PULSE 75; RESP 18; TEMP 36; O2SAT 96
[2022-09-23] MEDS: Omeprazole 20 MG CAPSULE.DR PO (05:53)
[2022-09-23] MEDS: Morphine Sulfate 2 MG/ML CARTRIDGE 4 MG IVPUSH ×2 (05:54→13:43)
[2022-09-23] MEDS: ondansetron HCL 4 MG/2 ML VIAL IVPUSH ×3 (06:32→22:54)
[2022-09-23 07:48] VITALS: BP 138/68; PULSE 67; RESP 18; TEMP 36.7; O2SAT 95
[2022-09-23] MEDS: Acetaminophen 1,000 MG/100 ML PIGGYBACK 400 MG IV ×3 (08:37→19:59)
[2022-09-23] MEDS: 0.9 % Sodium Chloride Flush 3 ML SYRINGE IVFLUSH ×3 (08:39→20:00)
[2022-09-23] MEDS: Apixaban 5 MG TABLET PO ×2 (08:41→19:59)
[2022-09-23] MEDS: Ferrous Sulfate 324 MG TABLET.DR PO ×2 (08:41→19:59)
[2022-09-23] MEDS: Dronedarone HCl 400 MG TABLET PO ×2 (08:41→19:59)
--- NOTE | 2022-09-23 08:43 | PM.PNGS ---
Subjective Subjective Date of Service: 09/23/22 Interval history: says she is some nausea, no vomitting states she does not recall passing flatus today incisional pain better Physical Exam Vital Signs: Vital Signs: Last Vital Signs Temp 98.1 F 09/23/22 07:48 Pulse 67 09/23/22 07:48 Resp 18 09/23/22 07:48 BP 138/68 09/23/22 07:48 Pulse Ox 95 09/23/22 07:48 O2 Del Method 09/23/22 07:48 O2 Flow Rate 2 09/20/22 16:07 BMI result Body Mass Index 27.1 Const: General: comfortable and no acute distress Resp: Effort & Inspection: normal respiratory effort Cardio: Rate: regular rate GI: Other: incision clean, no redness, with appropriate tenderness Palpation (GI): Soft to palpation, not firm and no guarding Objective Data Active Medications Albuterol Sulfate (Albuterol Sulfate 90 Mcg 8 Gm Inhaler) 2 puff INHALE Q4H PRN PRN Reason: Shortness Of Breath Or Wheezing Apixaban (Apixaban 5 Mg Tablet) 5 mg PO BID [facility] Last Admin: 09/22/22 20:01 Dose: 5 mg Documented By: URIEL Atorvastatin Calcium (Atorvastatin Calcium 10 Mg Tablet) 10 mg PO BEDTIME [facility] Last Admin: 09/22/22 20:01 Dose: 10 mg Documented By: URIEL Dicyclomine HCl (Dicyclomine Hcl 10 Mg Capsule) 20 mg PO TID PRN PRN Reason: abdominal pain Docusate Sodium (Docusate Sodium 100 Mg Capsule) 200 mg PO BEDTIME PRN PRN Reason: constipation Dronedarone (Dronedarone Hcl 400 Mg Tablet) 400 mg PO BID [facility] Last Admin: 09/22/22 20:02 Dose: 400 mg Documented By: URIEL Ferrous Sulfate (Ferrous Sulfate 324 Mg Tablet.Dr) 324 mg PO BID [facility] Last Admin: 09/22/22 20:01 Dose: 324 mg Documented By: URIEL Acetaminophen (Ofirmev) 1,000 mg in 100 mls @ 400 mls/hr IV Q6H [facility] Last Admin: 09/23/22 02:46 Dose: Not Given Documented By: URIEL Non-Admin Reason: over by max due Loperamide HCl (Loperamide Hcl 2 Mg Capsule) 2 mg PO Q6H PRN PRN Reason: Diarrhea Loratadine (Loratadine 10 Mg Tablet) 10 mg PO BEDTIME [facility] Last Admin: 09/22/22 20:01 Dose: 10 mg Documented By: URIEL Meclizine HCl (Meclizine Hcl 25 Mg Tablet) 25 mg PO DAILY PRN PRN Reason: motion sickness Montelukast Sodium (Montelukast Sodium 10 Mg Tablet) 10 mg PO BEDTIME [facility] Last Admin: 09/22/22 20:01 Dose: 10 mg Documented By: URIEL Morphine Sulfate (Morphine Sulfate 2 Mg/Ml Cartridge) 4 mg IVPUSH Q4H PRN; Protocol PRN Reason: Pain, Severe (Pain Scale 7-10) Last Admin: 09/23/22 05:54 Dose: 4 mg Documented By: URIEL Omeprazole (Omeprazole 20 Mg Capsule.Dr) 20 mg PO DAILY@0630 [facility] Last Admin: 09/23/22 05:53 Dose: 20 mg Documented By: URIEL Ondansetron HCl (Ondansetron Hcl 4 Mg/2 Ml Vial) 4 mg IVPUSH Q8H PRN PRN Reason: Nausea and Vomiting Last Admin: 09/23/22 06:32 Dose: 4 mg Documented By: URIEL Oxybutynin Chloride (Oxybutynin Chloride Er 5 Mg Tab.Er.24) 10 mg PO BEDTIME [facility] Last Admin: 09/22/22 20:01 Dose: 10 mg Documented By: URIEL Oxycodone HCl (Oxycodone Hcl Immed Release 5 Mg Tablet) 5 mg PO Q4H PRN PRN Reason: Pain, Moderate (Pain Scale 4-6 Sodium Chloride (0.9 % Sodium Chloride Flush 3 Ml Syringe) 3 ml IVFLUSH QSHIFT [facility] Last Admin: 09/22/22 23:06 Dose: Not Given Documented By: URIEL Non-Admin Reason: IV Running Vitamin D (Cholecalciferol (Vitamin D3) 25 Mcg Tablet) 25 mcg PO BEDTIME [facility] Last Admin: 09/22/22 20:01 Dose: 25 mcg Documented By: URIEL Labs CBC & Chem 7: 09/18/22 05:09 09/19/22 09:45 Microbiology Microbiology Results: Microbiology 09/18/22 02:41 Blood Culture - Final Blood - Venous No growth after 5 days. 09/18/22 02:41 Blood Culture - Final Blood - Venous No growth after 5 days. Procedures Date of Service Date of Service: 09/23/22 Progress Note: A&P Assessment and plan (1) S/P exploratory laparotomy: Status: Acute Assessment and Plan: keep on clears for today because of some nausea OOB to chair IVF pain mgt looks well otherwise Time Spent With Patient Time: Total time spent is greater than 50% in coordination of care (as documented) at patient's floor/unit and/or counseling patient: Quality Stroke Does the patient have a stroke diagnosis?: No VTE Prior VTE?: No VTE Risk Level:: Medical - moderate - high VTE Device Contraindication: N/A - Device Ordered VTE Drug Contraindication: Treatment Not Indicated
--- NOTE | 2022-09-23 09:11 | P.PNIM_ITS ---
Subjective Subjective Date of Service: 09/23/22 Interval History: Seen in f/u sbo, concern for recurrent carcinoid interval history: still on liquid diet, no bm or flatus, pain is controlled Review of Systems no fever +mild abd pain Physical Exam Vital Signs: Vital Signs: Last Vital Signs Temp 98.1 F 09/23/22 07:48 Pulse 67 09/23/22 07:48 Resp 18 09/23/22 07:48 BP 138/68 09/23/22 07:48 Pulse Ox 95 09/23/22 07:48 O2 Del Method 09/23/22 07:48 O2 Flow Rate 2 09/20/22 16:07 BMI result Body Mass Index 27.1 Const: Other: General: AO X 3, no acute distress Resp: CTA bilateral CVS: S1,S2,RRR GI: + BS, minimal tenderness, no distention Skin: No rash Neuro: motor grossly intact Psych: appropriate affect Objective Data Active Medications Albuterol Sulfate (Albuterol Sulfate 90 Mcg 8 Gm Inhaler) 2 puff INHALE Q4H PRN PRN Reason: Shortness Of Breath Or Wheezing Apixaban (Apixaban 5 Mg Tablet) 5 mg PO BID [facility] Last Admin: 09/23/22 08:41 Dose: 5 mg Documented By: TATIANA Atorvastatin Calcium (Atorvastatin Calcium 10 Mg Tablet) 10 mg PO BEDTIME [facility] Last Admin: 09/22/22 20:01 Dose: 10 mg Documented By: URIEL Dicyclomine HCl (Dicyclomine Hcl 10 Mg Capsule) 20 mg PO TID PRN PRN Reason: abdominal pain Docusate Sodium (Docusate Sodium 100 Mg Capsule) 200 mg PO BEDTIME PRN PRN Reason: constipation Dronedarone (Dronedarone Hcl 400 Mg Tablet) 400 mg PO BID [facility] Last Admin: 09/23/22 08:41 Dose: 400 mg Documented By: TATIANA Ferrous Sulfate (Ferrous Sulfate 324 Mg Tablet.Dr) 324 mg PO BID [facility] Last Admin: 09/23/22 08:41 Dose: 324 mg Documented By: TATIANA Acetaminophen (Ofirmev) 1,000 mg in 100 mls @ 400 mls/hr IV Q6H [facility] Last Admin: 09/23/22 08:37 Dose: 400 mls/hr Documented By: TATIANA Loperamide HCl (Loperamide Hcl 2 Mg Capsule) 2 mg PO Q6H PRN PRN Reason: Diarrhea Loratadine (Loratadine 10 Mg Tablet) 10 mg PO BEDTIME [facility] Last Admin: 09/22/22 20:01 Dose: 10 mg Documented By: URIEL Meclizine HCl (Meclizine Hcl 25 Mg Tablet) 25 mg PO DAILY PRN PRN Reason: motion sickness Montelukast Sodium (Montelukast Sodium 10 Mg Tablet) 10 mg PO BEDTIME [facility] Last Admin: 09/22/22 20:01 Dose: 10 mg Documented By: URIEL Morphine Sulfate (Morphine Sulfate 2 Mg/Ml Cartridge) 4 mg IVPUSH Q4H PRN; Protocol PRN Reason: Pain, Severe (Pain Scale 7-10) Last Admin: 09/23/22 05:54 Dose: 4 mg Documented By: URIEL Omeprazole (Omeprazole 20 Mg Capsule.Dr) 20 mg PO DAILY@0630 [facility] Last Admin: 09/23/22 05:53 Dose: 20 mg Documented By: URIEL Ondansetron HCl (Ondansetron Hcl 4 Mg/2 Ml Vial) 4 mg IVPUSH Q8H PRN PRN Reason: Nausea and Vomiting Last Admin: 09/23/22 06:32 Dose: 4 mg Documented By: URIEL Oxybutynin Chloride (Oxybutynin Chloride Er 5 Mg Tab.Er.24) 10 mg PO BEDTIME [facility] Last Admin: 09/22/22 20:01 Dose: 10 mg Documented By: URIEL Oxycodone HCl (Oxycodone Hcl Immed Release 5 Mg Tablet) 5 mg PO Q4H PRN PRN Reason: Pain, Moderate (Pain Scale 4-6 Sodium Chloride (0.9 % Sodium Chloride Flush 3 Ml Syringe) 3 ml IVFLUSH QSHIFT [facility] Last Admin: 09/23/22 08:39 Dose: 3 ml Documented By: TATIANA Vitamin D (Cholecalciferol (Vitamin D3) 25 Mcg Tablet) 25 mcg PO BEDTIME [facility] Last Admin: 09/22/22 20:01 Dose: 25 mcg Documented By: URIEL Labs CBC & Chem 7: 09/18/22 05:09 09/19/22 09:45 Microbiology Microbiology Results: Microbiology 09/18/22 02:41 Blood Culture - Final Blood - Venous No growth after 5 days. 09/18/22 02:41 Blood Culture - Final Blood - Venous No growth after 5 days. Assessment and Plan (1) S/P exploratory laparotomy: Status: Acute (2) Small bowel obstruction: Status: Acute Plan 62-year-old female with past medical history of paroxysmal AFib,? 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 SCDs, eliquis as above Need for inpaitent:Post of care after small bowell surgery Quality Stroke Does the patient have a stroke diagnosis?: No VTE Prior VTE?: No VTE Risk Level:: Medical - moderate - high VTE Device Contraindication: N/A - Device Ordered VTE Drug Contraindication: Treatment Not Indicated
--- NOTE | 2022-09-23 11:20 | P.PNHO-ONC_ITS ---
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 She has had significant weight loss over the last year. No facial flushing, bronchospasm, cough or wheezing. A CT abdomen/pelvis in February 2019 showed mesenteric mass, measuring 4.4 x 3.6 x 3.6 cm encircling the superior mesenteric artery over a length of 4-5 cm. Tethering of the small bowel mesentery surrounding the mass with engorgement or infiltration along the vasa recta. Mild associated small bowel thickening, no obstruction. Chest x-ray was negative. Urine 24 hour showed no elevation of 5 HIAA, 2.5 mg/24 hours. Workup for normocytic anemia- Normal iron studies, vitamin B12 and folate levels. Retic count, serum protein electrophoresis and immunofixation in February 2020 showed no monoclonal protein. Initial chromogranin a level elevated at 11 78 NG/mL. She had symptoms of diarrhea/carcinoid symptoms. She started octreotide LAR 30 mg IM once a month from March 2019. Interval History Interval history: She seems muh more comfortable. She is eating and conversing with ease.She states the pain is gone and she feels stronger. [facility] Medical History: Medical History (Last Reviewed 09/20/22 @ 12:50 by Nia Jennings RN) Afib Anemia Arthritis Asthma Colon polyp Constipation Diabetes Environmental allergies Gastric polyp GERD (gastroesophageal reflux disease) Hyperlipemia IBS (irritable bowel syndrome) Lipid disorder Neuroendocrine neoplasm of gastrointestinal tract Overactive bladder Paroxysmal atrial fibrillation Vitamin D deficiency Functional capacity: uses cane/walker Family History: Family History (Last Reviewed 09/18/22 @ 14:43 by Manuel Johnson MD) Father Afib Pneumonia Brother Afib Heart disease Brother Heart disease Mother Unknown family medical history Surgical History: Surgical History (Last Reviewed 09/20/22 @ 12:50 by Nia Jenninsg RN) History of colonoscopy History of esophagogastroduodenoscopy Social History: Social History (Last Reviewed 09/18/22 @ 14:43 by Manuel Johnson MD) Living Situation History: Household Members: None Housing: Apartment Housing Other:: [facility] Do you presently have 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 or 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 Do you presently have 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 or other home services comment: [employer] for [employer] for laundry, and cleaning. 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 Tobacco History: Patient Tobacco Use Status: Never used Tobacco e-Cigarette/Vaping Use: Never Used Second Hand Smoke Exposure: No Occupation Assessmet: service: No Current occupational status: disabled Home Medications and Allergies Current Medications: Current Medications Albuterol Sulfate (Albuterol Sulfate 90 Mcg 8 Gm Inhaler) 2 puff INHALE Q4H PRN PRN Reason: Shortness Of Breath Or Wheezing Apixaban (Apixaban 5 Mg Tablet) 5 mg PO BID [facility] Last Admin: 09/23/22 08:41 Dose: 5 mg Atorvastatin Calcium (Atorvastatin Calcium 10 Mg Tablet) 10 mg PO BEDTIME [facility] Last Admin: 09/22/22 20:01 Dose: 10 mg Dicyclomine HCl (Dicyclomine Hcl 10 Mg Capsule) 20 mg PO TID PRN PRN Reason: abdominal pain Docusate Sodium (Docusate Sodium 100 Mg Capsule) 200 mg PO BEDTIME PRN PRN Reason: constipation Dronedarone (Dronedarone Hcl 400 Mg Tablet) 400 mg PO BID [facility] Last Admin: 09/23/22 08:41 Dose: 400 mg Ferrous Sulfate (Ferrous Sulfate 324 Mg Tablet.Dr) 324 mg PO BID [facility] Last Admin: 09/23/22 08:41 Dose: 324 mg Acetaminophen (Ofirmev) 1,000 mg in 100 mls @ 400 mls/hr IV Q6H [facility] Last Infusion: 09/23/22 08:52 Dose: Infused Loperamide HCl (Loperamide Hcl 2 Mg Capsule) 2 mg PO Q6H PRN PRN Reason: Diarrhea Loratadine (Loratadine 10 Mg Tablet) 10 mg PO BEDTIME [facility] Last Admin: 09/22/22 20:01 Dose: 10 mg Meclizine HCl (Meclizine Hcl 25 Mg Tablet) 25 mg PO DAILY PRN PRN Reason: motion sickness Montelukast Sodium (Montelukast Sodium 10 Mg Tablet) 10 mg PO BEDTIME [facility] Last Admin: 09/22/22 20:01 Dose: 10 mg Morphine Sulfate (Morphine Sulfate 2 Mg/Ml Cartridge) 4 mg IVPUSH Q4H PRN; Protocol PRN Reason: Pain, Severe (Pain Scale 7-10) Last Admin: 09/23/22 05:54 Dose: 4 mg Omeprazole (Omeprazole 20 Mg Capsule.Dr) 20 mg PO DAILY@0630 [facility] Last Admin: 09/23/22 05:53 Dose: 20 mg Ondansetron HCl (Ondansetron Hcl 4 Mg/2 Ml Vial) 4 mg IVPUSH Q8H PRN PRN Reason: Nausea and Vomiting Last Admin: 09/23/22 06:32 Dose: 4 mg Oxybutynin Chloride (Oxybutynin Chloride Er 5 Mg Tab.Er.24) 10 mg PO BEDTIME [facility] Last Admin: 09/22/22 20:01 Dose: 10 mg Oxycodone HCl (Oxycodone Hcl Immed Release 5 Mg Tablet) 5 mg PO Q4H PRN PRN Reason: Pain, Moderate (Pain Scale 4-6 Sodium Chloride (0.9 % Sodium Chloride Flush 3 Ml Syringe) 3 ml IVFLUSH QSHIFT [facility] Last Admin: 09/23/22 08:39 Dose: 3 ml Vitamin D (Cholecalciferol (Vitamin D3) 25 Mcg Tablet) 25 mcg PO BEDTIME [facility] Last Admin: 09/22/22 20:01 Dose: 25 mcg Home Medications Medication Instructions Recorded Confirmed Type loperamide 2 mg capsule 2 mg PO Q6H PRN Diarrhea 08/11/20 09/18/22 History albuterol sulfate 90 mcg/actuation 2 puff inhalation Q4-6H PRN 09/18/22 09/18/22 History aerosol inhaler Shortness Of Breath Or Wheezing cholecalciferol (vitamin D3) 25 1,000 unit PO BEDTIME 09/18/22 09/18/22 History mcg (1,000 unit) capsule ferrous sulfate 325 mg (65 mg 325 mg PO BID 09/18/22 09/18/22 History iron) tablet loratadine 10 mg tablet 10 mg PO BEDTIME 09/18/22 09/18/22 History montelukast 10 mg tablet 10 mg PO BEDTIME 09/18/22 09/18/22 History omeprazole 20 mg capsule,delayed 20 mg PO DAILY@0630 09/18/22 09/18/22 History release oxybutynin chloride 10 mg 10 mg PO BEDTIME 09/18/22 09/18/22 History tablet,extended release 24 hr simvastatin 20 mg tablet 20 mg PO BEDTIME 09/18/22 09/18/22 History Allergies Allergy/AdvReac Type Severity Reaction Status Date / Time Erythromycin Allergy Unknown GI upset, Verified 09/17/22 20:30 increases pain erythromycin base AdvReac Intermediate GI UPSET Verified 09/17/22 20:30 [Erythromycin Base] Motrin AdvReac Unknown GI Upset, Verified 09/17/22 20:30 increases pain Chocolate Allergy Mild RASH Uncoded 06/07/22 13:04 Environmental Allergy Unknown Unknown Uncoded 06/07/22 13:04 Exam Vital signs: Vital Signs Temp 98.1 F 09/23/22 07:48 Pulse 67 09/23/22 07:48 Resp 18 09/23/22 07:48 BP 138/68 09/23/22 07:48 Pulse Ox 95 09/23/22 07:48 O2 Del Method 09/23/22 07:48 O2 Flow Rate 2 09/20/22 16:07 Intake & Output 09/22/22 09/23/22 09/23/22 18:59 06:59 18:59 Intake Total 1288.334 / 2587.667 1299.333 / 2587.667 100 / 100 Output Total 1500 / 1500 Balance 1288.334 / 1087.667 -200.667 / 1087.667 100 / 100 Urine Output (Average ml/kg/hr) 2.12 2.12 Intake: Intake, Oral Amount 400 / 880 480 / 880 Intake, IV Amount 888.334 / 1707.667 819.333 / 1707.667 100 / 100 Acetaminophen 1,000 mg In 100 200 / 300 100 / 300 100 / 100 ml @ 400 mls/hr IV Q6H [facility] Rx#: [id number] Lactated Ringers 1,000 ml @ 80 688.334 / 1407.667 719.333 / 1407.667 mls/hr IVCONT .[id number] [facility] Rx#: [id number] Output: Output, Urine Amount 1000 / 1000 Output, Urine Amount (Catheter) 500 / 500 Purewick 500 / 500 Other: Meal Refused No NPO No Dinner % Eaten 100% Urine purewhick Urine Color Yellow Last Bowel Movement 09/17/22 09/17/22 Weight 58.967 kg BMI result Body Mass Index 27.1 - Constitutional Present: no acute distress - Routine HEENT Exam Head: Present: atraumatic, normal inspection - Routine Neck Exam Present: full ROM - Routine Respiratory Exam Present: decreased breath sounds. Absent: accessory muscle use - Routine Cardiovascular Exam Cardiovascular: Present: RRR, S1, S2 - Routine Abdominal Exam Present: diminished bowel sounds, distended, hypoactive bowel sounds - Routine Extremities Exam Present: nontender Data - Labs CBC & Chem 7: 09/18/22 05:09 09/19/22 09:45 - Imaging Radiologist's impression: ITS Impressions Abdomen/Pelvis CT 09/18/22 01:00 IMPRESSION: 1. High-grade small bowel obstruction in the central abdomen where a loop of small bowel passes the region of abnormal soft tissue thickening in the central small bowel mesentery, potentially due to local tumor involvement or adhesions. 2. A 1.5 x 2 cm focus of nodular wall thickening in the small bowel in the right upper quadrant, potentially corresponding to a small bowel lesion. 3. A 3 mm solid pulmonary nodule in the left lower lobe. This region was not included on multiple CTs of the abdomen and pelvis dating back to 2018. Consider follow-up per oncology protocol. 4. Small sliding-type hiatal hernia. Fleischner guidelines were followed. KUB X-Ray 09/18/22 03:56 IMPRESSION: 1. Enteric tube tip terminates in the stomach with side-port at the diaphragmatic hiatus. Consider advancing another 3 cm. 2. Dilated loops of small bowel in the central abdomen. Chest X-Ray 09/19/22 05:03 IMPRESSION: NG tube tip terminates in the region of the gastric antrum. Abdomen X-Ray 09/20/22 15:19 IMPRESSION: 1. No unexpected radiopaque foreign bodies. 2. Nonobstructive bowel pattern. Assessment and Plan Patient Active problem list reviewed?: Yes (1) Carcinoid tumor Status: Acute Assessment and plan: I agree with current therapy and will follow over the long weekend - Time Spent With Patient Time Spent with Patient (in minutes): 15
[2022-09-23 11:40] VITALS: BP 141/60; PULSE 68; RESP 18; TEMP 36.7; O2SAT 95
--- NOTE | 2022-09-23 13:22 | MHC.CM.PN ---
DP: PER MD ROUNDS, PT NOT MEDICALLY CLEARED FOR DC(ADVANCING DIET, POST OP CARE SBO) CM WILL CONTINUE TO FOLLOW
[2022-09-23 15:15] VITALS: BP 126/71; PULSE 71; RESP 18; TEMP 36.4; O2SAT 96
[2022-09-23 19:13] VITALS: BP 117/66; PULSE 78; RESP 18; TEMP 36.6; O2SAT 93
[2022-09-23] MEDS: Montelukast Sodium 10 MG TABLET PO (19:59)
[2022-09-23] MEDS: Cholecalciferol (Vitamin D3) 25 MCG TABLET PO (19:59)
[2022-09-23] MEDS: Loratadine 10 MG TABLET PO (19:59)
[2022-09-23] MEDS: Atorvastatin Calcium 10 MG TABLET PO (19:59)
[2022-09-23] MEDS: oxyCODONE HCl Immed Release 5 MG TABLET PO (22:54)
[2022-09-24] VITALS: BP 142/76; PULSE 58; RESP 17; TEMP 36.8; O2SAT 95
[2022-09-24] MEDS: Acetaminophen 1,000 MG/100 ML PIGGYBACK 400 MG IV (02:01)
[2022-09-24 03:44] VITALS: BP 134/68; PULSE 56; RESP 17; TEMP 36.7; O2SAT 95
[2022-09-24] MEDS: Omeprazole 20 MG CAPSULE.DR PO (06:05)
[2022-09-24 07:47] VITALS: BP 146/78; PULSE 64; RESP 17; TEMP 36.4; O2SAT 96
[2022-09-24] MEDS: Apixaban 5 MG TABLET PO ×2 (08:35→20:25)
[2022-09-24] MEDS: Ferrous Sulfate 324 MG TABLET.DR PO ×2 (08:35→20:25)
[2022-09-24] MEDS: oxyCODONE HCl Immed Release 5 MG TABLET PO ×2 (08:35→19:16)
[2022-09-24] MEDS: ondansetron HCL 4 MG/2 ML VIAL IVPUSH ×2 (08:35→19:16)
[2022-09-24] MEDS: 0.9 % Sodium Chloride Flush 3 ML SYRINGE IVFLUSH ×3 (08:35→20:25)
[2022-09-24] MEDS: Dronedarone HCl 400 MG TABLET PO ×2 (08:35→20:25)
--- NOTE | 2022-09-24 08:50 | P.PNIM_ITS ---
Subjective Subjective Date of Service: 09/24/22 Interval History: Seen in f/u sbo, concern for recurrent carcinoid interval history: still on liquid diet, no bm or flatus, has nausea Review of Systems no fever +mild abd pain +nausea Physical Exam Vital Signs: Vital Signs: Last Vital Signs Temp 97.5 F 09/24/22 07:47 Pulse 64 09/24/22 07:47 Resp 17 09/24/22 07:47 BP 146/78 H 09/24/22 07:47 Pulse Ox 96 09/24/22 07:47 O2 Del Method 09/24/22 07:47 O2 Flow Rate 2 09/20/22 16:07 BMI result Body Mass Index 27.1 Const: Other: General: AO X 3, no acute distress Resp: CTA bilateral CVS: S1,S2,RRR GI: + BS, minimal tenderness, no distention Skin: No rash Neuro: motor grossly intact Psych: appropriate affect Objective Data Active Medications Albuterol Sulfate (Albuterol Sulfate 90 Mcg 8 Gm Inhaler) 2 puff INHALE Q4H PRN PRN Reason: Shortness Of Breath Or Wheezing Apixaban (Apixaban 5 Mg Tablet) 5 mg PO BID [facility] Last Admin: 09/24/22 08:35 Dose: 5 mg Documented By: FLEX Atorvastatin Calcium (Atorvastatin Calcium 10 Mg Tablet) 10 mg PO BEDTIME [facility] Last Admin: 09/23/22 19:59 Dose: 10 mg Documented By: ODRISM Dicyclomine HCl (Dicyclomine Hcl 10 Mg Capsule) 20 mg PO TID PRN PRN Reason: abdominal pain Docusate Sodium (Docusate Sodium 100 Mg Capsule) 200 mg PO BEDTIME PRN PRN Reason: constipation Dronedarone (Dronedarone Hcl 400 Mg Tablet) 400 mg PO BID [facility] Last Admin: 09/24/22 08:35 Dose: 400 mg Documented By: FLEX Ferrous Sulfate (Ferrous Sulfate 324 Mg Tablet.Dr) 324 mg PO BID [facility] Last Admin: 09/24/22 08:35 Dose: 324 mg Documented By: FLEX Loperamide HCl (Loperamide Hcl 2 Mg Capsule) 2 mg PO Q6H PRN PRN Reason: Diarrhea Loratadine (Loratadine 10 Mg Tablet) 10 mg PO BEDTIME [facility] Last Admin: 09/23/22 19:59 Dose: 10 mg Documented By: MINDY Meclizine HCl (Meclizine Hcl 25 Mg Tablet) 25 mg PO DAILY PRN PRN Reason: motion sickness Montelukast Sodium (Montelukast Sodium 10 Mg Tablet) 10 mg PO BEDTIME [facility] Last Admin: 09/23/22 19:59 Dose: 10 mg Documented By: MINDY Omeprazole (Omeprazole 20 Mg Capsule.Dr) 20 mg PO DAILY@0630 [facility] Last Admin: 09/24/22 06:05 Dose: 20 mg Documented By: MINDY Ondansetron HCl (Ondansetron Hcl 4 Mg/2 Ml Vial) 4 mg IVPUSH Q8H PRN PRN Reason: Nausea and Vomiting Last Admin: 09/24/22 08:35 Dose: 4 mg Documented By: FLEX Oxybutynin Chloride (Oxybutynin Chloride Er 5 Mg Tab.Er.24) 10 mg PO BEDTIME [facility] Last Admin: 09/23/22 19:59 Dose: 10 mg Documented By: MINDY Oxycodone HCl (Oxycodone Hcl Immed Release 5 Mg Tablet) 5 mg PO Q4H PRN PRN Reason: Pain, Moderate (Pain Scale 4-6 Last Admin: 09/24/22 08:35 Dose: 5 mg Documented By: FLEX Sodium Chloride (0.9 % Sodium Chloride Flush 3 Ml Syringe) 3 ml IVFLUSH QSHIFT [facility] Last Admin: 09/24/22 08:35 Dose: 3 ml Documented By: FLEX Vitamin D (Cholecalciferol (Vitamin D3) 25 Mcg Tablet) 25 mcg PO BEDTIME [facility] Last Admin: 09/23/22 19:59 Dose: 25 mcg Documented By: MINDY Labs CBC & Chem 7: 09/18/22 05:09 09/19/22 09:45 Microbiology Microbiology Results: Microbiology 09/18/22 02:41 Blood Culture - Final Blood - Venous No growth after 5 days. 09/18/22 02:41 Blood Culture - Final Blood - Venous No growth after 5 days. Assessment and Plan (1) S/P exploratory laparotomy: Status: Acute (2) Small bowel obstruction: Status: Acute Plan 62-year-old female with past medical history of paroxysmal AFib,? 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 SCDs, eliquis as above Need for inpaitent:Post of care after small bowell surgery Quality Stroke Does the patient have a stroke diagnosis?: No VTE Prior VTE?: No VTE Risk Level:: Medical - moderate - high VTE Device Contraindication: N/A - Device Ordered VTE Drug Contraindication: Treatment Not Indicated
--- NOTE | 2022-09-24 09:32 | PM.PNGS ---
Subjective Subjective Date of Service: 09/25/22 Interval history: states that she still has some nausea says she is not ready to eat denies recall in flatus has some pain, 03/08 Physical Exam Vital Signs: Vital Signs: Last Vital Signs Temp 97.5 F 09/24/22 07:47 Pulse 64 09/24/22 07:47 Resp 17 09/24/22 07:47 BP 146/78 H 09/24/22 07:47 Pulse Ox 96 09/24/22 07:47 O2 Del Method 09/24/22 07:47 O2 Flow Rate 2 09/20/22 16:07 BMI result Body Mass Index 27.1 Const: General: comfortable and no acute distress Resp: Effort & Inspection: normal respiratory effort Cardio: Rate: regular rate GI: Other: soft, mildly distended, no guarding rebound, incision clean and dry mild tenderness mostly on the incision Objective Data Active Medications Albuterol Sulfate (Albuterol Sulfate 90 Mcg 8 Gm Inhaler) 2 puff INHALE Q4H PRN PRN Reason: Shortness Of Breath Or Wheezing Apixaban (Apixaban 5 Mg Tablet) 5 mg PO BID [facility] Last Admin: 09/24/22 08:35 Dose: 5 mg Documented By: FLEX Atorvastatin Calcium (Atorvastatin Calcium 10 Mg Tablet) 10 mg PO BEDTIME [facility] Last Admin: 09/23/22 19:59 Dose: 10 mg Documented By: MINDY Dicyclomine HCl (Dicyclomine Hcl 10 Mg Capsule) 20 mg PO TID PRN PRN Reason: abdominal pain Docusate Sodium (Docusate Sodium 100 Mg Capsule) 200 mg PO BEDTIME PRN PRN Reason: constipation Dronedarone (Dronedarone Hcl 400 Mg Tablet) 400 mg PO BID [facility] Last Admin: 09/24/22 08:35 Dose: 400 mg Documented By: FLEX Ferrous Sulfate (Ferrous Sulfate 324 Mg Tablet.Dr) 324 mg PO BID [facility] Last Admin: 09/24/22 08:35 Dose: 324 mg Documented By: FLEX Loperamide HCl (Loperamide Hcl 2 Mg Capsule) 2 mg PO Q6H PRN PRN Reason: Diarrhea Loratadine (Loratadine 10 Mg Tablet) 10 mg PO BEDTIME [facility] Last Admin: 09/23/22 19:59 Dose: 10 mg Documented By: MINDY Meclizine HCl (Meclizine Hcl 25 Mg Tablet) 25 mg PO DAILY PRN PRN Reason: motion sickness Montelukast Sodium (Montelukast Sodium 10 Mg Tablet) 10 mg PO BEDTIME [facility] Last Admin: 09/23/22 19:59 Dose: 10 mg Documented By: MINDY Omeprazole (Omeprazole 20 Mg Capsule.Dr) 20 mg PO DAILY@0630 [facility] Last Admin: 09/24/22 06:05 Dose: 20 mg Documented By: MINDY Ondansetron HCl (Ondansetron Hcl 4 Mg/2 Ml Vial) 4 mg IVPUSH Q8H PRN PRN Reason: Nausea and Vomiting Last Admin: 09/24/22 08:35 Dose: 4 mg Documented By: FLEX Oxybutynin Chloride (Oxybutynin Chloride Er 5 Mg Tab.Er.24) 10 mg PO BEDTIME [facility] Last Admin: 09/23/22 19:59 Dose: 10 mg Documented By: MINDY Oxycodone HCl (Oxycodone Hcl Immed Release 5 Mg Tablet) 5 mg PO Q4H PRN PRN Reason: Pain, Moderate (Pain Scale 4-6 Last Admin: 09/24/22 08:35 Dose: 5 mg Documented By: FLEX Sodium Chloride (0.9 % Sodium Chloride Flush 3 Ml Syringe) 3 ml IVFLUSH QSHIFT [facility] Last Admin: 09/24/22 08:35 Dose: 3 ml Documented By: FLEX Vitamin D (Cholecalciferol (Vitamin D3) 25 Mcg Tablet) 25 mcg PO BEDTIME [facility] Last Admin: 09/23/22 19:59 Dose: 25 mcg Documented By: MINDY Labs CBC & Chem 7: 09/18/22 05:09 09/19/22 09:45 Microbiology Microbiology Results: Microbiology 09/18/22 02:41 Blood Culture - Final Blood - Venous No growth after 5 days. 09/18/22 02:41 Blood Culture - Final Blood - Venous No growth after 5 days. Procedures Date of Service Date of Service: 09/24/22 Progress Note: A&P Assessment and plan (1) S/P exploratory laparotomy: Status: Acute Assessment and Plan: still with some nausea likely from postop ileus will check KUB keep on clear liquids only for now encouraged to get out of bed, increased activity looks well otherwise Time Spent With Patient Time: Total time spent is greater than 50% in coordination of care (as documented) at patient's floor/unit and/or counseling patient: Quality Stroke Does the patient have a stroke diagnosis?: No VTE Prior VTE?: No VTE Risk Level:: Medical - moderate - high VTE Device Contraindication: N/A - Device Ordered VTE Drug Contraindication: Treatment Not Indicated
[2022-09-24 11:48] VITALS: BP 101/56; PULSE 94; RESP 17; TEMP 36.7; O2SAT 94
--- NOTE | 2022-09-24 12:48 | PM.HEMONCPN ---
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 She has had significant weight loss over the last year. No facial flushing, bronchospasm, cough or wheezing. A CT abdomen/pelvis in February 2019 showed mesenteric mass, measuring 4.4 x 3.6 x 3.6 cm encircling the superior mesenteric artery over a length of 4-5 cm. Tethering of the small bowel mesentery surrounding the mass with engorgement or infiltration along the vasa recta. Mild associated small bowel thickening, no obstruction. Chest x-ray was negative. Urine 24 hour showed no elevation of 5 HIAA, 2.5 mg/24 hours. Workup for normocytic anemia- Normal iron studies, vitamin B12 and folate levels. Retic count, serum protein electrophoresis and immunofixation in February 2020 showed no monoclonal protein. Initial chromogranin a level elevated at 11 78 NG/mL. She had symptoms of diarrhea/carcinoid symptoms. She started octreotide LAR 30 mg IM once a month from March 2019. Interval History Interval history: She seems muh more comfortable. She is eating and conversing with ease.She states the pain is gone and she feels stronger.She denies nausea, vomiting, diarrhea or anorexia. [facility] Medical History: Medical History (Last Reviewed 09/20/22 @ 12:50 by Nia Jennings RN) Afib Anemia Arthritis Asthma Colon polyp Constipation Diabetes Environmental allergies Gastric polyp GERD (gastroesophageal reflux disease) Hyperlipemia IBS (irritable bowel syndrome) Lipid disorder Neuroendocrine neoplasm of gastrointestinal tract Overactive bladder Paroxysmal atrial fibrillation Vitamin D deficiency Functional capacity: uses cane/walker Family History: Family History (Last Reviewed 09/18/22 @ 14:43 by Manuel Johnson MD) Father Afib Pneumonia Brother Afib Heart disease Brother Heart disease Mother Unknown family medical history Surgical History: Surgical History (Last Reviewed 09/20/22 @ 12:50 by Nia Jennings RN) History of colonoscopy History of esophagogastroduodenoscopy Social History: Social History (Last Reviewed 09/18/22 @ 14:43 by Manuel Johnson MD) Living Situation History: Household Members: None Housing: Apartment Housing Other:: [facility] health [facility] Do you presently have 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 or 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 Do you presently have 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 or other home services comment: [employer] for [employer] for laundry, and cleaning. 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 Tobacco History: Patient Tobacco Use Status: Never used Tobacco e-Cigarette/Vaping Use: Never Used Second Hand Smoke Exposure: No Occupation Assessmet: service: No Current occupational status: disabled Home Medications and Allergies Current Medications: Current Medications Albuterol Sulfate (Albuterol Sulfate 90 Mcg 8 Gm Inhaler) 2 puff INHALE Q4H PRN PRN Reason: Shortness Of Breath Or Wheezing Apixaban (Apixaban 5 Mg Tablet) 5 mg PO BID [facility] Last Admin: 09/24/22 08:35 Dose: 5 mg Atorvastatin Calcium (Atorvastatin Calcium 10 Mg Tablet) 10 mg PO BEDTIME [facility] Last Admin: 09/23/22 19:59 Dose: 10 mg Dicyclomine HCl (Dicyclomine Hcl 10 Mg Capsule) 20 mg PO TID PRN PRN Reason: abdominal pain Docusate Sodium (Docusate Sodium 100 Mg Capsule) 200 mg PO BEDTIME PRN PRN Reason: constipation Dronedarone (Dronedarone Hcl 400 Mg Tablet) 400 mg PO BID [facility] Last Admin: 09/24/22 08:35 Dose: 400 mg Ferrous Sulfate (Ferrous Sulfate 324 Mg Tablet.) 324 mg PO BID [facility] Last Admin: 09/24/22 08:35 Dose: 324 mg Loperamide HCl (Loperamide Hcl 2 Mg Capsule) 2 mg PO Q6H PRN PRN Reason: Diarrhea Loratadine (Loratadine 10 Mg Tablet) 10 mg PO BEDTIME [facility] Last Admin: 09/23/22 19:59 Dose: 10 mg Meclizine HCl (Meclizine Hcl 25 Mg Tablet) 25 mg PO DAILY PRN PRN Reason: motion sickness Montelukast Sodium (Montelukast Sodium 10 Mg Tablet) 10 mg PO BEDTIME [facility] Last Admin: 09/23/22 19:59 Dose: 10 mg Omeprazole (Omeprazole 20 Mg Capsule.) 20 mg PO DAILY@0630 [facility] Last Admin: 09/24/22 06:05 Dose: 20 mg Ondansetron HCl (Ondansetron Hcl 4 Mg/2 Ml Vial) 4 mg IVPUSH Q8H PRN PRN Reason: Nausea and Vomiting Last Admin: 09/24/22 08:35 Dose: 4 mg Oxybutynin Chloride (Oxybutynin Chloride Er 5 Mg Tab.Er.24) 10 mg PO BEDTIME [facility] Last Admin: 09/23/22 19:59 Dose: 10 mg Oxycodone HCl (Oxycodone Hcl Immed Release 5 Mg Tablet) 5 mg PO Q4H PRN PRN Reason: Pain, Moderate (Pain Scale 4-6 Last Admin: 09/24/22 08:35 Dose: 5 mg Sodium Chloride (0.9 % Sodium Chloride Flush 3 Ml Syringe) 3 ml IVFLUSH QSHIFT [facility] Last Admin: 09/24/22 08:35 Dose: 3 ml Vitamin D (Cholecalciferol (Vitamin D3) 25 Mcg Tablet) 25 mcg PO BEDTIME [facility] Last Admin: 09/23/22 19:59 Dose: 25 mcg Home Medications Medication Instructions Recorded Confirmed Type loperamide 2 mg capsule 2 mg PO Q6H PRN Diarrhea 08/11/20 09/18/22 History albuterol sulfate 90 mcg/actuation 2 puff inhalation Q4-6H PRN 09/18/22 09/18/22 History aerosol inhaler Shortness Of Breath Or Wheezing cholecalciferol (vitamin D3) 25 1,000 unit PO BEDTIME 09/18/22 09/18/22 History mcg (1,000 unit) capsule ferrous sulfate 325 mg (65 mg 325 mg PO BID 09/18/22 09/18/22 History iron) tablet loratadine 10 mg tablet 10 mg PO BEDTIME 09/18/22 09/18/22 History montelukast 10 mg tablet 10 mg PO BEDTIME 09/18/22 09/18/22 History omeprazole 20 mg capsule,delayed 20 mg PO DAILY@0630 09/18/22 09/18/22 History release oxybutynin chloride 10 mg 10 mg PO BEDTIME 09/18/22 09/18/22 History tablet,extended release 24 hr simvastatin 20 mg tablet 20 mg PO BEDTIME 09/18/22 09/18/22 History Allergies Allergy/AdvReac Type Severity Reaction Status Date / Time Erythromycin Allergy Unknown GI upset, Verified 09/17/22 20:30 increases pain erythromycin base AdvReac Intermediate GI UPSET Verified 09/17/22 20:30 [Erythromycin Base] Motrin AdvReac Unknown GI Upset, Verified 09/17/22 20:30 increases pain Chocolate Allergy Mild RASH Uncoded 06/07/22 13:04 Environmental Allergy Unknown Unknown Uncoded 06/07/22 13:04 Exam Vital signs: Vital Signs Temp 98.0 F 09/24/22 11:48 Pulse 94 09/24/22 11:48 Resp 17 09/24/22 11:48 BP 101/56 L 09/24/22 11:48 Pulse Ox 94 09/24/22 11:48 O2 Del Method 09/24/22 11:48 O2 Flow Rate 2 09/20/22 16:07 Intake & Output 09/23/22 09/24/22 09/24/22 18:59 06:59 18:59 Intake Total 680 / 1360 680 / 1360 Output Total 800 / 800 Balance 680 / 560 -120 / 560 Urine Output (Average ml/kg/hr) 1.13 1.13 Intake: Intake, Oral Amount 480 / 960 480 / 960 Intake, IV Amount 200 / 400 200 / 400 Acetaminophen 1,000 mg In 100 200 / 400 200 / 400 ml @ 400 mls/hr IV Q6H [facility] Rx#: [id number] Output: Output, Urine Amount (Catheter) 800 / 800 Purewick 800 / 800 Other: Meal Refused No NPO No Breakfast % Eaten 50% Lunch % Eaten 75% Number of Incontinent Voids 2 Urine Color Yellow Yellow Last Bowel Movement 09/17/22 09/17/22 Continuous Bladder Irrigation Fluid - Amount Drained Purewick 250 Weight 58.967 kg BMI result Body Mass Index 27.1 - Constitutional Present: no acute distress - Routine HEENT Exam Head: Present: atraumatic, normal inspection - Routine Neck Exam Present: full ROM - Routine Respiratory Exam Present: decreased breath sounds. Absent: accessory muscle use - Routine Cardiovascular Exam Cardiovascular: Present: RRR, S1, S2 - Routine Abdominal Exam Present: diminished bowel sounds, distended, hypoactive bowel sounds - Routine Extremities Exam Present: nontender Data - Labs CBC & Chem 7: 09/18/22 05:09 09/19/22 09:45 - Imaging Radiologist's impression: ITS Impressions Abdomen/Pelvis CT 09/18/22 01:00 IMPRESSION: 1. High-grade small bowel obstruction in the central abdomen where a loop of small bowel passes the region of abnormal soft tissue thickening in the central small bowel mesentery, potentially due to local tumor involvement or adhesions. 2. A 1.5 x 2 cm focus of nodular wall thickening in the small bowel in the right upper quadrant, potentially corresponding to a small bowel lesion. 3. A 3 mm solid pulmonary nodule in the left lower lobe. This region was not included on multiple CTs of the abdomen and pelvis dating back to 2018. Consider follow-up per oncology protocol. 4. Small sliding-type hiatal hernia. Fleischner guidelines were followed. KUB X-Ray 09/18/22 03:56 IMPRESSION: 1. Enteric tube tip terminates in the stomach with side-port at the diaphragmatic hiatus. Consider advancing another 3 cm. 2. Dilated loops of small bowel in the central abdomen. Chest X-Ray 09/19/22 05:03 IMPRESSION: NG tube tip terminates in the region of the gastric antrum. Abdomen X-Ray 09/20/22 15:19 IMPRESSION: 1. No unexpected radiopaque foreign bodies. 2. Nonobstructive bowel pattern. KUB X-Ray 09/24/22 10:43 IMPRESSION: Postsurgical changes with stool in right colon nonspecific gas in the small bowel loops likely early postop ileus. Assessment and Plan Patient Active problem list reviewed?: Yes (1) Carcinoid tumor Status: Acute Assessment and plan: I agree with current therapy and will follow over the long weekend She continues to improve. No changes indicated. - Time Spent With Patient Time Spent with Patient (in minutes): 15
[2022-09-24 15:22] VITALS: BP 104/63; PULSE 106; RESP 18; TEMP 36.7; O2SAT 94
[2022-09-24 19:15] VITALS: BP 98/56; PULSE 91; RESP 18; TEMP 36.8; O2SAT 95
[2022-09-24] MEDS: Atorvastatin Calcium 10 MG TABLET PO (20:25)
[2022-09-24] MEDS: Montelukast Sodium 10 MG TABLET PO (20:25)
[2022-09-24] MEDS: Loratadine 10 MG TABLET PO (20:25)
[2022-09-24] MEDS: Cholecalciferol (Vitamin D3) 25 MCG TABLET PO (20:25)
[2022-09-25] VITALS (8 sets, daily range): BP systolic 92–101; BP diastolic 55–62; PULSE 70–96; RESP 14–18; TEMP 36.2–36.9; O2SAT 93–98
[2022-09-25] MEDS: Omeprazole 20 MG CAPSULE.DR PO (06:01)
[2022-09-25] MEDS: oxyCODONE HCl Immed Release 5 MG TABLET PO ×3 (07:02→18:24)
[2022-09-25] MEDS: Ferrous Sulfate 324 MG TABLET.DR PO ×2 (07:03→19:43)
[2022-09-25] MEDS: Apixaban 5 MG TABLET PO ×2 (07:03→19:43)
[2022-09-25] MEDS: Dronedarone HCl 400 MG TABLET PO ×2 (07:03→19:42)
[2022-09-25] MEDS: 0.9 % Sodium Chloride Flush 3 ML SYRINGE IVFLUSH ×2 (07:06→15:49)
--- NOTE | 2022-09-25 08:41 | HO.PM.IMPN ---
Subjective Subjective Date of Service: 09/25/22 Interval History: Seen in f/u sbo, concern for recurrent carcinoid interval history: no bm, no flatus, tolerating liquid diet Review of Systems no fever +mild abd pain +nausea Physical Exam Vital Signs: Vital Signs: Last Vital Signs Temp 98.4 F 09/25/22 07:24 Pulse 80 09/25/22 07:24 Resp 17 09/25/22 07:24 BP 101/59 L 09/25/22 07:24 Pulse Ox 96 09/25/22 07:24 O2 Del Method 09/25/22 07:24 O2 Flow Rate 2 09/20/22 16:07 BMI result Body Mass Index 27.1 Const: Other: General: AO X 3, no acute distress Resp: CTA bilateral CVS: S1,S2,RRR GI: + BS, minimal tenderness, no distention Skin: No rash Neuro: motor grossly intact Psych: appropriate affect Objective Data Active Medications Albuterol Sulfate (Albuterol Sulfate 90 Mcg 8 Gm Inhaler) 2 puff INHALE Q4H PRN PRN Reason: Shortness Of Breath Or Wheezing Apixaban (Apixaban 5 Mg Tablet) 5 mg PO BID [facility] Last Admin: 09/25/22 07:03 Dose: 5 mg Documented By: ADAM Atorvastatin Calcium (Atorvastatin Calcium 10 Mg Tablet) 10 mg PO BEDTIME [facility] Last Admin: 09/24/22 20:25 Dose: 10 mg Documented By: ODRISFlori Dicyclomine HCl (Dicyclomine Hcl 10 Mg Capsule) 20 mg PO TID PRN PRN Reason: abdominal pain Docusate Sodium (Docusate Sodium 100 Mg Capsule) 200 mg PO BEDTIME PRN PRN Reason: constipation Dronedarone (Dronedarone Hcl 400 Mg Tablet) 400 mg PO BID [facility] Last Admin: 09/25/22 07:03 Dose: 400 mg Documented By: ADAM Ferrous Sulfate (Ferrous Sulfate 324 Mg Tablet.Dr) 324 mg PO BID [facility] Last Admin: 09/25/22 07:03 Dose: 324 mg Documented By: ADAM Loperamide HCl (Loperamide Hcl 2 Mg Capsule) 2 mg PO Q6H PRN PRN Reason: Diarrhea Loratadine (Loratadine 10 Mg Tablet) 10 mg PO BEDTIME [facility] Last Admin: 09/24/22 20:25 Dose: 10 mg Documented By: MINDY Meclizine HCl (Meclizine Hcl 25 Mg Tablet) 25 mg PO DAILY PRN PRN Reason: motion sickness Montelukast Sodium (Montelukast Sodium 10 Mg Tablet) 10 mg PO BEDTIME [facility] Last Admin: 09/24/22 20:25 Dose: 10 mg Documented By: MINDY Omeprazole (Omeprazole 20 Mg Capsule.Dr) 20 mg PO DAILY@0630 [facility] Last Admin: 09/25/22 06:01 Dose: 20 mg Documented By: MINDY Ondansetron HCl (Ondansetron Hcl 4 Mg/2 Ml Vial) 4 mg IVPUSH Q8H PRN PRN Reason: Nausea and Vomiting Last Admin: 09/24/22 19:16 Dose: 4 mg Documented By: MINDY Oxybutynin Chloride (Oxybutynin Chloride Er 5 Mg Tab.Er.24) 10 mg PO BEDTIME [facility] Last Admin: 09/24/22 20:25 Dose: 10 mg Documented By: MINDY Oxycodone HCl (Oxycodone Hcl Immed Release 5 Mg Tablet) 5 mg PO Q4H PRN PRN Reason: Pain, Moderate (Pain Scale 4-6 Last Admin: 09/25/22 07:02 Dose: 5 mg Documented By: ADAM Sodium Chloride (0.9 % Sodium Chloride Flush 3 Ml Syringe) 3 ml IVFLUSH QSHIFT [facility] Last Admin: 09/25/22 07:06 Dose: 3 ml Documented By: ADAM Vitamin D (Cholecalciferol (Vitamin D3) 25 Mcg Tablet) 25 mcg PO BEDTIME [facility] Last Admin: 09/24/22 20:25 Dose: 25 mcg Documented By: MINDY Labs CBC & Chem 7: 09/18/22 05:09 09/19/22 09:45 Assessment and Plan (1) S/P exploratory laparotomy: Status: Acute (2) Small bowel obstruction: Status: Acute Plan 62-year-old female with past medical history of paroxysmal AFib,? 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 of spray cementer tract, history of carcinoid tumor presents to the hospital with complaints of abdominal pain found to have small-bowel obstruction # high grade small-bowel obstruction d/t adhesion -s/p Exploratory laparotomy, lysis of adhesions on 09/20 -NGT removed 09/21 and diet advanced to liquid and so far tolerating to be advanced by surgery -further management and diet advancement per surgery # acute hyperkalemia, resolved # Permanent AFIB--rate controlled, eliquis DVT prophylaxis:? SCDs, eliquis as above Need for inpaitent:Post of care after small bowell surgery Quality Stroke Does the patient have a stroke diagnosis?: No VTE Prior VTE?: No VTE Risk Level:: Medical - moderate - high VTE Device Contraindication: N/A - Device Ordered VTE Drug Contraindication: Treatment Not Indicated
[2022-09-25] MEDS: ondansetron HCL 4 MG/2 ML VIAL IVPUSH ×2 (08:51→16:51)
--- NOTE | 2022-09-25 10:34 | PM.PNGS ---
Subjective Subjective Date of Service: 09/25/22 Interval history: has been tolerating liquids well denies vomiting she does state that she still has a little bit of nausea no significant abdominal pain she denies recall of flatus Physical Exam Vital Signs: Vital Signs: Last Vital Signs Temp 98.4 F 09/25/22 07:24 Pulse 80 09/25/22 07:24 Resp 17 09/25/22 07:24 BP 101/59 L 09/25/22 07:24 Pulse Ox 96 09/25/22 07:24 O2 Del Method 09/25/22 07:24 O2 Flow Rate 2 09/20/22 16:07 BMI result Body Mass Index 27.1 Const: General: comfortable and no acute distress Resp: Effort & Inspection: normal respiratory effort Cardio: Rate: regular rate GI: Other: incision clean and dry, well healing Inspection: No distended Palpation (GI): Soft to palpation, not firm and nontender Objective Data Active Medications Albuterol Sulfate (Albuterol Sulfate 90 Mcg 8 Gm Inhaler) 2 puff INHALE Q4H PRN PRN Reason: Shortness Of Breath Or Wheezing Apixaban (Apixaban 5 Mg Tablet) 5 mg PO BID [facility] Last Admin: 09/25/22 07:03 Dose: 5 mg Documented By: ADAM Atorvastatin Calcium (Atorvastatin Calcium 10 Mg Tablet) 10 mg PO BEDTIME [facility] Last Admin: 09/24/22 20:25 Dose: 10 mg Documented By: OLGA LIDIARISFlori Dicyclomine HCl (Dicyclomine Hcl 10 Mg Capsule) 20 mg PO TID PRN PRN Reason: abdominal pain Docusate Sodium (Docusate Sodium 100 Mg Capsule) 200 mg PO BEDTIME PRN PRN Reason: constipation Dronedarone (Dronedarone Hcl 400 Mg Tablet) 400 mg PO BID [facility] Last Admin: 09/25/22 07:03 Dose: 400 mg Documented By: ADAM Ferrous Sulfate (Ferrous Sulfate 324 Mg Tablet.Dr) 324 mg PO BID [facility] Last Admin: 09/25/22 07:03 Dose: 324 mg Documented By: ADAM Loperamide HCl (Loperamide Hcl 2 Mg Capsule) 2 mg PO Q6H PRN PRN Reason: Diarrhea Loratadine (Loratadine 10 Mg Tablet) 10 mg PO BEDTIME [facility] Last Admin: 09/24/22 20:25 Dose: 10 mg Documented By: MINDY Meclizine HCl (Meclizine Hcl 25 Mg Tablet) 25 mg PO DAILY PRN PRN Reason: motion sickness Montelukast Sodium (Montelukast Sodium 10 Mg Tablet) 10 mg PO BEDTIME [facility] Last Admin: 09/24/22 20:25 Dose: 10 mg Documented By: MINDY Omeprazole (Omeprazole 20 Mg Capsule.Dr) 20 mg PO DAILY@0630 [facility] Last Admin: 09/25/22 06:01 Dose: 20 mg Documented By: MINDY Ondansetron HCl (Ondansetron Hcl 4 Mg/2 Ml Vial) 4 mg IVPUSH Q8H PRN PRN Reason: Nausea and Vomiting Last Admin: 09/25/22 08:51 Dose: 4 mg Documented By: ADAM Oxybutynin Chloride (Oxybutynin Chloride Er 5 Mg Tab.Er.24) 10 mg PO BEDTIME [facility] [place] Last Admin: 09/24/22 20:25 Dose: 10 mg Documented By: MINDY Oxycodone HCl (Oxycodone Hcl Immed Release 5 Mg Tablet) 5 mg PO Q4H PRN PRN Reason: Pain, Moderate (Pain Scale 4-6 Last Admin: 09/25/22 07:02 Dose: 5 mg Documented By: ADAM Sodium Chloride (0.9 % Sodium Chloride Flush 3 Ml Syringe) 3 ml IVFLUSH QSHIFT [facility] [place] Last Admin: 09/25/22 07:06 Dose: 3 ml Documented By: ADAM Vitamin D (Cholecalciferol (Vitamin D3) 25 Mcg Tablet) 25 mcg PO BEDTIME [facility] Last Admin: 09/24/22 20:25 Dose: 25 mcg Documented By: MINDY Labs CBC & Chem 7: 09/18/22 05:09 09/19/22 09:45 Procedures Date of Service Date of Service: 09/25/22 Progress Note: A&P Assessment and plan (1) S/P exploratory laparotomy: Status: Acute Assessment and Plan: she describes a little nausea but has no vomiting tolerating clear liquids well does not recall flatus I am uncertain how reliable she is as a historian she looks well otherwise so okay to advance diet slowly as tolerated KUB be from yesterday does not suggest obstruction Time Spent With Patient Time: Total time spent is greater than 50% in coordination of care (as documented) at patient's floor/unit and/or counseling patient: Quality Stroke Does the patient have a stroke diagnosis?: No VTE Prior VTE?: No VTE Risk Level:: Medical - moderate - high VTE Device Contraindication: N/A - Device Ordered VTE Drug Contraindication: Treatment Not Indicated
--- NOTE | 2022-09-25 11:56 | P.PNHO-ONC_ITS ---
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 She has had significant weight loss over the last year. No facial flushing, bronchospasm, cough or wheezing. A CT abdomen/pelvis in February 2019 showed mesenteric mass, measuring 4.4 x 3.6 x 3.6 cm encircling the superior mesenteric artery over a length of 4-5 cm. Tethering of the small bowel mesentery surrounding the mass with engorgement or infiltration along the vasa recta. Mild associated small bowel thickening, no obstruction. Chest x-ray was negative. Urine 24 hour showed no elevation of 5 HIAA, 2.5 mg/24 hours. Workup for normocytic anemia- Normal iron studies, vitamin B12 and folate levels. Retic count, serum protein electrophoresis and immunofixation in February 2020 showed no monoclonal protein. Initial chromogranin a level elevated at 11 78 NG/mL. She had symptoms of diarrhea/carcinoid symptoms. She started octreotide LAR 30 mg IM once a month from March 2019. Interval History Interval history: She seems much more comfortable. She is eating and conversing with ease. She states the pain is gone and she feels stronger.She denies nausea, vomiting, diarrhea or anorexia. She was very loquacious today tell me all about her nurses and the iv's and the food here. [facility] Medical History: Medical History (Last Reviewed 09/20/22 @ 12:50 by Nia Jennings RN) Afib Anemia Arthritis Asthma Colon polyp Constipation Diabetes Environmental allergies Gastric polyp GERD (gastroesophageal reflux disease) Hyperlipemia IBS (irritable bowel syndrome) Lipid disorder Neuroendocrine neoplasm of gastrointestinal tract Overactive bladder Paroxysmal atrial fibrillation Vitamin D deficiency Functional capacity: uses cane/walker Family History: Family History (Last Reviewed 09/18/22 @ 14:43 by Manuel Johnson MD) Father Afib Pneumonia Brother Afib Heart disease Brother Heart disease Mother Unknown family medical history Surgical History: Surgical History (Last Reviewed 09/20/22 @ 12:50 by Nia Jennings RN) History of colonoscopy History of esophagogastroduodenoscopy Social History: Social History (Last Reviewed 09/18/22 @ 14:43 by Manuel Johnson MD) Living Situation History: Household Members: None Housing: Apartment Housing Other:: [facility] Do you presently have 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 or 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 Do you presently have 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 or other home services comment: [employer] for laundry, and cleaning. 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 Tobacco History: Patient Tobacco Use Status: Never used Tobacco e-Cigarette/Vaping Use: Never Used Second Hand Smoke Exposure: No Occupation Assessmet: service: No Current occupational status: disabled Home Medications and Allergies Current Medications: Current Medications Albuterol Sulfate (Albuterol Sulfate 90 Mcg 8 Gm Inhaler) 2 puff INHALE Q4H PRN PRN Reason: Shortness Of Breath Or Wheezing Apixaban (Apixaban 5 Mg Tablet) 5 mg PO BID REPLACED BY [facility] Last Admin: 09/25/22 07:03 Dose: 5 mg Atorvastatin Calcium (Atorvastatin Calcium 10 Mg Tablet) 10 mg PO BEDTIME REPLACED BY [facility] Last Admin: 09/24/22 20:25 Dose: 10 mg Dicyclomine HCl (Dicyclomine Hcl 10 Mg Capsule) 20 mg PO TID PRN PRN Reason: abdominal pain Docusate Sodium (Docusate Sodium 100 Mg Capsule) 200 mg PO BEDTIME PRN PRN Reason: constipation Dronedarone (Dronedarone Hcl 400 Mg Tablet) 400 mg PO BID REPLACED BY [facility] Last Admin: 09/25/22 07:03 Dose: 400 mg Ferrous Sulfate (Ferrous Sulfate 324 Mg Tablet.) 324 mg PO BID REPLACED BY [facility] Last Admin: 09/25/22 07:03 Dose: 324 mg Loperamide HCl (Loperamide Hcl 2 Mg Capsule) 2 mg PO Q6H PRN PRN Reason: Diarrhea Loratadine (Loratadine 10 Mg Tablet) 10 mg PO BEDTIME REPLACED BY [facility] Last Admin: 09/24/22 20:25 Dose: 10 mg Meclizine HCl (Meclizine Hcl 25 Mg Tablet) 25 mg PO DAILY PRN PRN Reason: motion sickness Montelukast Sodium (Montelukast Sodium 10 Mg Tablet) 10 mg PO BEDTIME REPLACED BY [facility] Last Admin: 09/24/22 20:25 Dose: 10 mg Omeprazole (Omeprazole 20 Mg Capsule.) 20 mg PO DAILY@0630 REPLACED BY [facility] Last Admin: 09/25/22 06:01 Dose: 20 mg Ondansetron HCl (Ondansetron Hcl 4 Mg/2 Ml Vial) 4 mg IVPUSH Q8H PRN PRN Reason: Nausea and Vomiting Last Admin: 09/25/22 08:51 Dose: 4 mg Oxybutynin Chloride (Oxybutynin Chloride Er 5 Mg Tab.Er.24) 10 mg PO BEDTIME REPLACED BY [facility] Last Admin: 09/24/22 20:25 Dose: 10 mg Oxycodone HCl (Oxycodone Hcl Immed Release 5 Mg Tablet) 5 mg PO Q4H PRN PRN Reason: Pain, Moderate (Pain Scale 4-6 Last Admin: 09/25/22 07:02 Dose: 5 mg Sodium Chloride (0.9 % Sodium Chloride Flush 3 Ml Syringe) 3 ml IVFLUSH QSHIFT REPLACED BY [facility] Last Admin: 09/25/22 07:06 Dose: 3 ml Vitamin D (Cholecalciferol (Vitamin D3) 25 Mcg Tablet) 25 mcg PO BEDTIME REPLACED BY [facility] Last Admin: 09/24/22 20:25 Dose: 25 mcg Home Medications Medication Instructions Recorded Confirmed Type loperamide 2 mg capsule 2 mg PO Q6H PRN Diarrhea 08/11/20 09/18/22 History albuterol sulfate 90 mcg/actuation 2 puff inhalation Q4-6H PRN 09/18/22 09/18/22 History aerosol inhaler Shortness Of Breath Or Wheezing cholecalciferol (vitamin D3) 25 1,000 unit PO BEDTIME 09/18/22 09/18/22 History mcg (1,000 unit) capsule ferrous sulfate 325 mg (65 mg 325 mg PO BID 09/18/22 09/18/22 History iron) tablet loratadine 10 mg tablet 10 mg PO BEDTIME 09/18/22 09/18/22 History montelukast 10 mg tablet 10 mg PO BEDTIME 09/18/22 09/18/22 History omeprazole 20 mg capsule,delayed 20 mg PO DAILY@0630 09/18/22 09/18/22 History release oxybutynin chloride 10 mg 10 mg PO BEDTIME 09/18/22 09/18/22 History tablet,extended release 24 hr simvastatin 20 mg tablet 20 mg PO BEDTIME 09/18/22 09/18/22 History Allergies Allergy/AdvReac Type Severity Reaction Status Date / Time Erythromycin Allergy Unknown GI upset, Verified 09/17/22 20:30 increases pain erythromycin base AdvReac Intermediate GI UPSET Verified 09/17/22 20:30 [Erythromycin Base] Motrin AdvReac Unknown GI Upset, Verified 09/17/22 20:30 increases pain Chocolate Allergy Mild RASH Uncoded 06/07/22 13:04 Environmental Allergy Unknown Unknown Uncoded 06/07/22 13:04 Exam Vital signs: Vital Signs Temp 98.0 F 09/25/22 11:49 Pulse 96 09/25/22 11:49 Resp 16 09/25/22 11:49 BP 82/56 L 09/25/22 11:49 Pulse Ox 93 09/25/22 11:49 O2 Del Method 09/25/22 11:49 O2 Flow Rate 2 09/20/22 16:07 Intake & Output 09/24/22 09/25/22 09/25/22 18:59 06:59 18:59 Intake Total 480 / 1080 600 / 1080 Output Total 400 / 400 Balance 480 / 680 200 / 680 Urine Output (Average ml/kg/hr) 0.57 0.57 Intake: Intake, Oral Amount 480 / 1080 600 / 1080 Output: Output, Urine Amount 400 / 400 Other: Meal Refused No NPO No Breakfast % Eaten 25% Lunch % Eaten 50% Dinner % Eaten 50% Number of Incontinent Voids 1 Urine purewick Urine Color Yellow Yellow Last Bowel Movement 09/17/22 09/17/22 Continuous Bladder Irrigation Fluid - Amount Drained Purewick 200 Weight 58.967 kg BMI result Body Mass Index 27.1 - Constitutional Present: no acute distress - Routine HEENT Exam Head: Present: atraumatic, normal inspection - Routine Neck Exam Present: full ROM - Routine Respiratory Exam Present: decreased breath sounds. Absent: accessory muscle use - Routine Cardiovascular Exam Cardiovascular: Present: RRR, S1, S2 - Routine Abdominal Exam Present: diminished bowel sounds, distended, hypoactive bowel sounds - Routine Extremities Exam Present: nontender Data - Labs CBC & Chem 7: 09/18/22 05:09 09/19/22 09:45 - Imaging Radiologist's impression: ITS Impressions Abdomen/Pelvis CT 09/18/22 01:00 IMPRESSION: 1. High-grade small bowel obstruction in the central abdomen where a loop of small bowel passes the region of abnormal soft tissue thickening in the central small bowel mesentery, potentially due to local tumor involvement or adhesions. 2. A 1.5 x 2 cm focus of nodular wall thickening in the small bowel in the right upper quadrant, potentially corresponding to a small bowel lesion. 3. A 3 mm solid pulmonary nodule in the left lower lobe. This region was not included on multiple CTs of the abdomen and pelvis dating back to 2018. Consider follow-up per oncology protocol. 4. Small sliding-type hiatal hernia. Fleischner guidelines were followed. KUB X-Ray 09/18/22 03:56 IMPRESSION: 1. Enteric tube tip terminates in the stomach with side-port at the diaphragmatic hiatus. Consider advancing another 3 cm. 2. Dilated loops of small bowel in the central abdomen. Chest X-Ray 09/19/22 05:03 IMPRESSION: NG tube tip terminates in the region of the gastric antrum. Abdomen X-Ray 09/20/22 15:19 IMPRESSION: 1. No unexpected radiopaque foreign bodies. 2. Nonobstructive bowel pattern. KUB X-Ray 09/24/22 10:43 IMPRESSION: Postsurgical changes with stool in right colon nonspecific gas in the small bowel loops likely early postop ileus. Assessment and Plan Patient Active problem list reviewed?: Yes (1) Carcinoid tumor Status: Acute Assessment and plan: I agree with current therapy and will follow over the long weekend She continues to improve. No changes indicated.She seems to be slowly but steadily improving. - Time Spent With Patient Time Spent with Patient (in minutes): 15
--- NOTE | 2022-09-25 16:20 | PC.NURSE ---
Addendum entered by Lilia Laird RN 09/25/22 17:33: Dr Durant notified, IV fluids ordered, no other action is required. Patient states no pressure discomfort. Original Note: patient did not void since morning. bladder scan for 165 ml. no discomfort stated by patient
[2022-09-25] MEDS: Dicyclomine HCl 10 MG CAPSULE 20 MG PO (17:15)
[2022-09-25] MEDS: Dextrose 5 % and 0.45 % NaCl 1,000 ML 125 ML IVCONT (17:44)
[2022-09-25] MEDS: Loratadine 10 MG TABLET PO (19:42)
[2022-09-25] MEDS: Cholecalciferol (Vitamin D3) 25 MCG TABLET PO (19:42)
[2022-09-25] MEDS: Montelukast Sodium 10 MG TABLET PO (19:43)
[2022-09-25] MEDS: Atorvastatin Calcium 10 MG TABLET PO (19:43)
[2022-09-26] VITALS (7 sets, daily range): BP systolic 103–121; BP diastolic 52–71; PULSE 71–97; RESP 16–18; TEMP 36.1–37; O2SAT 96–98
[2022-09-26] MEDS: oxyCODONE HCl Immed Release 5 MG TABLET PO ×2 (00:14→05:37)
[2022-09-26] MEDS: ondansetron HCL 4 MG/2 ML VIAL IVPUSH ×2 (00:15→19:50)
[2022-09-26] MEDS: Dextrose 5 % and 0.45 % NaCl 1,000 ML 125 ML IVCONT ×3 (00:17→15:30)
[2022-09-26] MEDS: Omeprazole 20 MG CAPSULE.DR PO (05:37)
--- NOTE | 2022-09-26 07:53 | P.PNGS_ITS ---
Subjective Subjective Date of Service: 09/26/22 Interval history: Reports some nausea after taking pain meds; has not ambulated. Physical Exam Vital Signs: Vital Signs: Last Vital Signs Temp 97.5 F 09/26/22 03:05 Pulse 74 09/26/22 03:05 Resp 16 09/26/22 03:05 BP 103/52 L 09/26/22 03:05 Pulse Ox 97 09/26/22 03:05 O2 Del Method 09/26/22 03:05 O2 Flow Rate 2 09/20/22 16:07 BMI result Body Mass Index 27.1 Const: General: comfortable Nutritional Appearance: well nourished Orientation/consciousness: patient oriented x3 Resp: Effort & Inspection: normal respiratory effort GI: Other: midline incision is clean, dry and intact without redness or discharge Inspection: Yes normal to inspection Palpation (GI): Soft to palpation, nontender and no guarding Neuro: General: patient oriented x3 Extrem: Other: no edema Objective Data Active Medications Albuterol Sulfate (Albuterol Sulfate 90 Mcg 8 Gm Inhaler) 2 puff INHALE Q4H PRN PRN Reason: Shortness Of Breath Or Wheezing Apixaban (Apixaban 5 Mg Tablet) 5 mg PO BID [facility] Last Admin: 09/25/22 19:43 Dose: 5 mg Documented By: CAROLEE Atorvastatin Calcium (Atorvastatin Calcium 10 Mg Tablet) 10 mg PO BEDTIME [facility] Last Admin: 09/25/22 19:43 Dose: 10 mg Documented By: CAROLEE Dicyclomine HCl (Dicyclomine Hcl 10 Mg Capsule) 20 mg PO TID PRN PRN Reason: abdominal pain Last Admin: 09/25/22 17:15 Dose: 20 mg Documented By: ADAM Docusate Sodium (Docusate Sodium 100 Mg Capsule) 200 mg PO BEDTIME PRN PRN Reason: constipation Dronedarone (Dronedarone Hcl 400 Mg Tablet) 400 mg PO BID [facility] Last Admin: 09/25/22 19:42 Dose: 400 mg Documented By: CAROLEE Ferrous Sulfate (Ferrous Sulfate 324 Mg Tablet.Dr) 324 mg PO BID [facility] Last Admin: 09/25/22 19:43 Dose: 324 mg Documented By: CAROLEE Dextrose/Sodium Chloride (D51/2ns) 1,000 mls @ 125 mls/hr IVCONT .Q8H [facility] Last Admin: 09/26/22 00:17 Dose: 125 mls/hr Documented By: CAROLEE Loperamide HCl (Loperamide Hcl 2 Mg Capsule) 2 mg PO Q6H PRN PRN Reason: Diarrhea Loratadine (Loratadine 10 Mg Tablet) 10 mg PO BEDTIME [facility] Last Admin: 09/25/22 19:42 Dose: 10 mg Documented By: CAROLEE Meclizine HCl (Meclizine Hcl 25 Mg Tablet) 25 mg PO DAILY PRN PRN Reason: motion sickness Montelukast Sodium (Montelukast Sodium 10 Mg Tablet) 10 mg PO BEDTIME [facility] Last Admin: 09/25/22 19:43 Dose: 10 mg Documented By: CAROLEE Omeprazole (Omeprazole 20 Mg Capsule.Dr) 20 mg PO DAILY@0630 [facility] Last Admin: 09/26/22 05:37 Dose: 20 mg Documented By: CAROLEE Ondansetron HCl (Ondansetron Hcl 4 Mg/2 Ml Vial) 4 mg IVPUSH Q8H PRN PRN Reason: Nausea and Vomiting Last Admin: 09/26/22 00:15 Dose: 4 mg Documented By: CAROLEE Oxybutynin Chloride (Oxybutynin Chloride Er 5 Mg Tab.Er.24) 10 mg PO BEDTIME [facility] Last Admin: 09/25/22 19:42 Dose: 10 mg Documented By: CAROLEE Sodium Chloride (0.9 % Sodium Chloride Flush 3 Ml Syringe) 3 ml IVFLUSH QSHIFT [facility] Last Admin: 09/26/22 07:13 Dose: Not Given Documented By: ABDON Non-Admin Reason: See Note Tramadol HCl (Tramadol Hcl 50 Mg Tablet) 25 mg PO Q6H PRN PRN Reason: Pain, Moderate (Pain Scale 4-6 Vitamin D (Cholecalciferol (Vitamin D3) 25 Mcg Tablet) 25 mcg PO BEDTIME [facility] Last Admin: 09/25/22 19:42 Dose: 25 mcg Documented By: CAROLEE Labs CBC & Chem 7: 09/18/22 05:09 09/19/22 09:45 Procedures Date of Service Date of Service: 09/26/22 Progress Note: A&P Assessment and plan (1) S/P exploratory laparotomy: Status: Acute (2) Small bowel obstruction: Status: Acute Plan SBO, s/p enterolysis, now with post op ileus. Stool in right colon noted on X- ray. Will need to ambulate in hallways. PT consulted. Time Spent With Patient Time: Total time spent is greater than 50% in coordination of care (as documented) at patient's floor/unit and/or counseling patient: Quality Stroke Does the patient have a stroke diagnosis?: No VTE Prior VTE?: No VTE Risk Level:: Medical - moderate - high VTE Device Contraindication: N/A - Device Ordered VTE Drug Contraindication: Treatment Not Indicated
--- NOTE | 2022-09-26 08:13 | P.PNIM_ITS ---
Subjective Subjective Date of Service: 09/26/22 Interval History: Seen in f/u sbo, concern for recurrent carcinoid interval history: no bm, no flatus, tolerating full liquid diet Review of Systems no fever +mild abd pain +nausea Physical Exam Vital Signs: Vital Signs: Last Vital Signs Temp 97.1 F 09/26/22 07:54 Pulse 89 09/26/22 07:54 Resp 18 09/26/22 07:54 BP 121/62 09/26/22 07:54 Pulse Ox 97 09/26/22 07:54 O2 Del Method 09/26/22 07:54 O2 Flow Rate 2 09/20/22 16:07 BMI result Body Mass Index 27.1 Const: Other: General: AO X 3, no acute distress Resp: CTA bilateral CVS: S1,S2,RRR GI: + BS, minimal tenderness, no distention Skin: No rash Neuro: motor grossly intact Psych: appropriate affect Objective Data Active Medications Albuterol Sulfate (Albuterol Sulfate 90 Mcg 8 Gm Inhaler) 2 puff INHALE Q4H PRN PRN Reason: Shortness Of Breath Or Wheezing Apixaban (Apixaban 5 Mg Tablet) 5 mg PO BID [facility] Last Admin: 09/25/22 19:43 Dose: 5 mg Documented By: CAROLEE Atorvastatin Calcium (Atorvastatin Calcium 10 Mg Tablet) 10 mg PO BEDTIME [facility] Last Admin: 09/25/22 19:43 Dose: 10 mg Documented By: CAROLEE Dicyclomine HCl (Dicyclomine Hcl 10 Mg Capsule) 20 mg PO TID PRN PRN Reason: abdominal pain Last Admin: 09/25/22 17:15 Dose: 20 mg Documented By: ADAM Docusate Sodium (Docusate Sodium 100 Mg Capsule) 200 mg PO BEDTIME PRN PRN Reason: constipation Dronedarone (Dronedarone Hcl 400 Mg Tablet) 400 mg PO BID [facility] Last Admin: 09/25/22 19:42 Dose: 400 mg Documented By: CAROLEE Ferrous Sulfate (Ferrous Sulfate 324 Mg Tablet.Dr) 324 mg PO BID [facility] Last Admin: 09/25/22 19:43 Dose: 324 mg Documented By: CAROLEE Dextrose/Sodium Chloride (D51/2ns) 1,000 mls @ 125 mls/hr IVCONT .Q8H [facility] Last Admin: 09/26/22 00:17 Dose: 125 mls/hr Documented By: CAROLEE Loperamide HCl (Loperamide Hcl 2 Mg Capsule) 2 mg PO Q6H PRN PRN Reason: Diarrhea Loratadine (Loratadine 10 Mg Tablet) 10 mg PO BEDTIME [facility] Last Admin: 09/25/22 19:42 Dose: 10 mg Documented By: CAROLEE Meclizine HCl (Meclizine Hcl 25 Mg Tablet) 25 mg PO DAILY PRN PRN Reason: motion sickness Montelukast Sodium (Montelukast Sodium 10 Mg Tablet) 10 mg PO BEDTIME [facility] Last Admin: 09/25/22 19:43 Dose: 10 mg Documented By: CAROLEE Omeprazole (Omeprazole 20 Mg Capsule.Dr) 20 mg PO DAILY@0630 [facility] Last Admin: 09/26/22 05:37 Dose: 20 mg Documented By: CAROLEE Ondansetron HCl (Ondansetron Hcl 4 Mg/2 Ml Vial) 4 mg IVPUSH Q8H PRN PRN Reason: Nausea and Vomiting Last Admin: 09/26/22 00:15 Dose: 4 mg Documented By: CAROLEE Oxybutynin Chloride (Oxybutynin Chloride Er 5 Mg Tab.Er.24) 10 mg PO BEDTIME [facility] Last Admin: 09/25/22 19:42 Dose: 10 mg Documented By: CAROLEE Sodium Chloride (0.9 % Sodium Chloride Flush 3 Ml Syringe) 3 ml IVFLUSH QSHIFT [facility] Last Admin: 09/26/22 07:13 Dose: Not Given Documented By: ABDON Non-Admin Reason: See Note Tramadol HCl (Tramadol Hcl 50 Mg Tablet) 25 mg PO Q6H PRN PRN Reason: Pain, Moderate (Pain Scale 4-6 Vitamin D (Cholecalciferol (Vitamin D3) 25 Mcg Tablet) 25 mcg PO BEDTIME [facility] Last Admin: 09/25/22 19:42 Dose: 25 mcg Documented By: CAROLEE Labs CBC & Chem 7: 09/18/22 05:09 09/19/22 09:45 Assessment and Plan (1) S/P exploratory laparotomy: Status: Acute (2) Small bowel obstruction: Status: Acute Plan 62-year-old female with past medical history of paroxysmal AFib,? 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 of kier pleater tract, history of carcinoid tumor presents to the hospital with complaints of abdominal pain found to have small-bowel obstruction # high grade small-bowel obstruction d/t adhesion -s/p Exploratory laparotomy, lysis of adhesions on 09/20 -NGT removed 09/21 and diet advanced to liquid and so far tolerating to be advanced by surgery -further management and diet advancement per surgery # acute hyperkalemia, resolved # Permanent AFIB--rate controlled, eliquis DVT prophylaxis:? SCDs, eliquis as above Need for inpaitent:Post of care after small bowell surgery out of bed, ambulate Quality Stroke Does the patient have a stroke diagnosis?: No VTE Prior VTE?: No VTE Risk Level:: Medical - moderate - high VTE Device Contraindication: N/A - Device Ordered VTE Drug Contraindication: Treatment Not Indicated
[2022-09-26] MEDS: Ferrous Sulfate 324 MG TABLET.DR PO ×2 (08:33→19:40)
[2022-09-26] MEDS: Apixaban 5 MG TABLET PO ×2 (08:33→19:40)
[2022-09-26] MEDS: Dronedarone HCl 400 MG TABLET PO ×2 (08:33→19:41)
--- NOTE | 2022-09-26 09:25 | MHC.CLN ---
NUTRITION DIET ADVANCED TO FULL LIQUIDS 09/25. ADDING ENSURE TID TO INCREASE NUTRITIONAL INTAKE. PROVIDES 1050 KCALS, 60 G PROTEIN.
--- NOTE | 2022-09-26 14:27 | MHC.CM.PN ---
EMR REVIEWED. PER MD ROUNDS, PT NOT MEDICALLY CLEARED FOR DISCHARGE (POST OP CARE S/P SMALL BOWEL SURGERY)CM WILL CONTINUE TO FOLLOW
--- NOTE | 2022-09-26 14:28 | PC.NURSE ---
Addendum entered by Eddie Antunez RN 09/26/22 18:09: pt bladder scan around noon was 200cc Original Note: pt encouraged to void, ambulating to restroom, bladder scan Q6 performed. pt noted to be retaining but emptying bladder down to 100-200cc of urine. informed pt is not passing gas, hasnt had BM and has hypoactive BSx4. PT at bedside evaluating pt.
[2022-09-26] MEDS: traMADoL HCL 50 MG TABLET 25 MG PO (15:29)
[2022-09-26] MEDS: Dicyclomine HCl 10 MG CAPSULE 20 MG PO (15:29)
[2022-09-26] MEDS: Atorvastatin Calcium 10 MG TABLET PO (19:41)
[2022-09-26] MEDS: Loratadine 10 MG TABLET PO (19:41)
[2022-09-26] MEDS: Cholecalciferol (Vitamin D3) 25 MCG TABLET PO (19:41)
[2022-09-26] MEDS: Montelukast Sodium 10 MG TABLET PO (19:41)
[2022-09-27] VITALS (7 sets, daily range): BP systolic 104–119; BP diastolic 49–74; PULSE 72–91; RESP 15–18; TEMP 36–36.7; O2SAT 96–98
[2022-09-27] MEDS: Dextrose 5 % and 0.45 % NaCl 1,000 ML 125 ML IVCONT ×2 (01:26→09:29)
[2022-09-27] MEDS: Dronedarone HCl 400 MG TABLET PO ×2 (07:11→20:25)
[2022-09-27] MEDS: Apixaban 5 MG TABLET PO ×2 (07:11→20:25)
[2022-09-27] MEDS: Omeprazole 20 MG CAPSULE.DR PO (07:11)
[2022-09-27] MEDS: Ferrous Sulfate 324 MG TABLET.DR PO ×2 (07:11→20:25)
--- NOTE | 2022-09-27 07:19 | HO.PM.IMPN ---
Subjective Subjective Date of Service: 09/27/22 Interval History: Seen in f/u sbo, concern for recurrent carcinoid interval history: feels the same no bm, up and ambulating Review of Systems no fever +mild abd pain +nausea Physical Exam Vital Signs: Vital Signs: Last Vital Signs Temp 96.8 F 09/27/22 07:13 Pulse 78 09/27/22 07:13 Resp 15 09/27/22 07:13 BP 104/49 L 09/27/22 07:13 Pulse Ox 98 09/27/22 07:13 O2 Del Method 09/27/22 07:13 O2 Flow Rate 2 09/27/22 07:13 BMI result Body Mass Index 27.1 Const: Other: General: AO X 3, no acute distress Resp: CTA bilateral CVS: S1,S2,RRR GI: hypoactive sounds, minimal tenderness, no distention Skin: No rash Neuro: motor grossly intact Psych: appropriate affect Objective Data Active Medications Albuterol Sulfate (Albuterol Sulfate 90 Mcg 8 Gm Inhaler) 2 puff INHALE Q4H PRN PRN Reason: Shortness Of Breath Or Wheezing Apixaban (Apixaban 5 Mg Tablet) 5 mg PO BID [facility] Last Admin: 09/27/22 07:11 Dose: 5 mg Documented By: PIETRO Atorvastatin Calcium (Atorvastatin Calcium 10 Mg Tablet) 10 mg PO BEDTIME [facility] Last Admin: 09/26/22 19:41 Dose: 10 mg Documented By: CAROLEE Dicyclomine HCl (Dicyclomine Hcl 10 Mg Capsule) 20 mg PO TID PRN PRN Reason: abdominal pain Last Admin: 09/26/22 15:29 Dose: 20 mg Documented By: SHADE-SOFFA Docusate Sodium (Docusate Sodium 100 Mg Capsule) 200 mg PO BEDTIME PRN PRN Reason: constipation Dronedarone (Dronedarone Hcl 400 Mg Tablet) 400 mg PO BID [facility] Last Admin: 09/27/22 07:11 Dose: 400 mg Documented By: PIETRO Ferrous Sulfate (Ferrous Sulfate 324 Mg Tablet.) 324 mg PO BID [facility] Last Admin: 09/27/22 07:11 Dose: 324 mg Documented By: PIETRO Dextrose/Sodium Chloride (D51/2ns) 1,000 mls @ 125 mls/hr IVCONT .Q8H [facility] Last Admin: 09/27/22 01:26 Dose: 125 mls/hr Documented By: CAROLEE Loperamide HCl (Loperamide Hcl 2 Mg Capsule) 2 mg PO Q6H PRN PRN Reason: Diarrhea Loratadine (Loratadine 10 Mg Tablet) 10 mg PO BEDTIME [facility] Last Admin: 09/26/22 19:41 Dose: 10 mg Documented By: CAROLEE Meclizine HCl (Meclizine Hcl 25 Mg Tablet) 25 mg PO DAILY PRN PRN Reason: motion sickness Montelukast Sodium (Montelukast Sodium 10 Mg Tablet) 10 mg PO BEDTIME [facility] Last Admin: 09/26/22 19:41 Dose: 10 mg Documented By: CAROLEE Omeprazole (Omeprazole 20 Mg Capsule.Dr) 20 mg PO DAILY@0630 [facility] Last Admin: 09/27/22 07:11 Dose: 20 mg Documented By: PIETRO Ondansetron HCl (Ondansetron Hcl 4 Mg/2 Ml Vial) 4 mg IVPUSH Q8H PRN PRN Reason: Nausea and Vomiting Last Admin: 09/26/22 19:50 Dose: 4 mg Documented By: CAROLEE Oxybutynin Chloride (Oxybutynin Chloride Er 5 Mg Tab.Er.24) 10 mg PO BEDTIME [facility] Last Admin: 09/26/22 19:40 Dose: 10 mg Documented By: CAROLEE Sodium Chloride (0.9 % Sodium Chloride Flush 3 Ml Syringe) 3 ml IVFLUSH QSHIFT [facility] Last Admin: 09/27/22 07:15 Dose: Not Given Documented By: PIETRO Non-Admin Reason: IV Running Tramadol HCl (Tramadol Hcl 50 Mg Tablet) 25 mg PO Q6H PRN PRN Reason: Pain, Moderate (Pain Scale 4-6 Last Admin: 09/26/22 15:29 Dose: 25 mg Documented By: SHADE-OLGA Vitamin D (Cholecalciferol (Vitamin D3) 25 Mcg Tablet) 25 mcg PO BEDTIME [facility] Last Admin: 09/26/22 19:41 Dose: 25 mcg Documented By: CAROLEE Labs CBC & Chem 7: 09/18/22 05:09 09/19/22 09:45 Assessment and Plan (1) S/P exploratory laparotomy: Status: Acute (2) Small bowel obstruction: Status: Acute Plan 62-year-old female with past medical history of paroxysmal AFib,? 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 of teaching pastor tract, history of carcinoid tumor presents to the hospital with complaints of abdominal pain found to have small-bowel obstruction # high grade small-bowel obstruction d/t adhesion -s/p Exploratory laparotomy, lysis of adhesions on 09/20, bm yet -NGT removed 09/21 and diet advanced to full liquid and so far tolerating to be advanced by surgery -further management and diet advancement per surgery # Acute hyperkalemia, resolved # Permanent AFIB--rate controlled, eliquis DVT prophylaxis:? SCDs, eliquis as above Need for inpaitent:Post of care after small bowell surgery out of bed, ambulate Quality Stroke Does the patient have a stroke diagnosis?: No VTE Prior VTE?: No VTE Risk Level:: Medical - moderate - high VTE Device Contraindication: N/A - Device Ordered VTE Drug Contraindication: Treatment Not Indicated
[2022-09-27] MEDS: traMADoL HCL 50 MG TABLET 25 MG PO ×3 (07:34→20:33)
--- NOTE | 2022-09-27 08:10 | P.PNGS_ITS ---
Subjective Subjective Date of Service: 09/27/22 Interval history: Patient reports ambulating yesterday with a walker. She continues to pass flatus in urine but denies a bowel movement. Her nausea is slightly improved with the change of pain medications. Physical Exam Vital Signs: Vital Signs: Last Vital Signs Temp 96.8 F 09/27/22 07:13 Pulse 78 09/27/22 07:13 Resp 15 09/27/22 07:13 BP 104/49 L 09/27/22 07:13 Pulse Ox 98 09/27/22 07:13 O2 Del Method 09/27/22 07:13 O2 Flow Rate 2 09/27/22 07:13 BMI result Body Mass Index 27.1 Const: General: no acute distress Nutritional Appearance: well nourished Orientation/consciousness: patient oriented x3 Resp: Effort & Inspection: normal respiratory effort GI: Other: Distended, midline incision is clean and intact. Few bowel sounds are audible. Alana-incisional tenderness. Tympany to percussion. Skin: General skin exam: no rashes or lesions noted Neuro: General: patient oriented x3 Extrem: General: No edema Objective Data Active Medications Albuterol Sulfate (Albuterol Sulfate 90 Mcg 8 Gm Inhaler) 2 puff INHALE Q4H PRN PRN Reason: Shortness Of Breath Or Wheezing Apixaban (Apixaban 5 Mg Tablet) 5 mg PO BID [facility] Last Admin: 09/27/22 07:11 Dose: 5 mg Documented By: PIETRO Atorvastatin Calcium (Atorvastatin Calcium 10 Mg Tablet) 10 mg PO BEDTIME [facility] Last Admin: 09/26/22 19:41 Dose: 10 mg Documented By: CAROLEE Dicyclomine HCl (Dicyclomine Hcl 10 Mg Capsule) 20 mg PO TID PRN PRN Reason: abdominal pain Last Admin: 09/26/22 15:29 Dose: 20 mg Documented By: SHADE-SOFFA Docusate Sodium (Docusate Sodium 100 Mg Capsule) 200 mg PO BEDTIME PRN PRN Reason: constipation Dronedarone (Dronedarone Hcl 400 Mg Tablet) 400 mg PO BID [facility] Last Admin: 09/27/22 07:11 Dose: 400 mg Documented By: PIETRO Ferrous Sulfate (Ferrous Sulfate 324 Mg Tablet.) 324 mg PO BID [facility] Last Admin: 09/27/22 07:11 Dose: 324 mg Documented By: PIETRO Dextrose/Sodium Chloride (D51/2ns) 1,000 mls @ 125 mls/hr IVCONT .Q8H [facility] Last Admin: 09/27/22 01:26 Dose: 125 mls/hr Documented By: CAROLEE Loperamide HCl (Loperamide Hcl 2 Mg Capsule) 2 mg PO Q6H PRN PRN Reason: Diarrhea Loratadine (Loratadine 10 Mg Tablet) 10 mg PO BEDTIME [facility] Last Admin: 09/26/22 19:41 Dose: 10 mg Documented By: CAROLEE Meclizine HCl (Meclizine Hcl 25 Mg Tablet) 25 mg PO DAILY PRN PRN Reason: motion sickness Montelukast Sodium (Montelukast Sodium 10 Mg Tablet) 10 mg PO BEDTIME [facility] Last Admin: 09/26/22 19:41 Dose: 10 mg Documented By: CAROLEE Omeprazole (Omeprazole 20 Mg Capsule.Dr) 20 mg PO DAILY@0630 [facility] Last Admin: 09/27/22 07:11 Dose: 20 mg Documented By: PIETRO Ondansetron HCl (Ondansetron Hcl 4 Mg/2 Ml Vial) 4 mg IVPUSH Q8H PRN PRN Reason: Nausea and Vomiting Last Admin: 09/26/22 19:50 Dose: 4 mg Documented By: CAROLEE Oxybutynin Chloride (Oxybutynin Chloride Er 5 Mg Tab.Er.24) 10 mg PO BEDTIME [facility] Last Admin: 09/26/22 19:40 Dose: 10 mg Documented By: CAROLEE Sodium Chloride (0.9 % Sodium Chloride Flush 3 Ml Syringe) 3 ml IVFLUSH QSHIFT [facility] Last Admin: 09/27/22 07:15 Dose: Not Given Documented By: PIETRO Non-Admin Reason: IV Running Tramadol HCl (Tramadol Hcl 50 Mg Tablet) 25 mg PO Q6H PRN PRN Reason: Pain, Moderate (Pain Scale 4-6 Last Admin: 09/27/22 07:34 Dose: 25 mg Documented By: PIETRO Vitamin D (Cholecalciferol (Vitamin D3) 25 Mcg Tablet) 25 mcg PO BEDTIME [facility] Last Admin: 09/26/22 19:41 Dose: 25 mcg Documented By: CAROLEE Labs CBC & Chem 7: 09/18/22 05:09 09/19/22 09:45 Procedures Date of Service Date of Service: 09/27/22 Progress Note: A&P Assessment and plan (1) S/P exploratory laparotomy: Status: Acute (2) Carcinoid tumor: Status: Acute (3) Small bowel obstruction: Status: Acute Plan 62-year-old female patient with prior history of carcinoid tumor, recently admitted with small-bowel obstruction. She is 1 week post exploratory laparotomy and lysis of adhesions. She continues to have a postoperative ileus although she is passing flatus. Continue liquid diet; encouraged continued ambulation. Small-bowel follow-through may be helpful. Time Spent With Patient Time: Total time spent is greater than 50% in coordination of care (as documented) at patient's floor/unit and/or counseling patient: Quality Stroke Does the patient have a stroke diagnosis?: No VTE Prior VTE?: No VTE Risk Level:: Medical - moderate - high VTE Device Contraindication: N/A - Device Ordered VTE Drug Contraindication: Treatment Not Indicated
[2022-09-27] MEDS: ondansetron HCL 4 MG/2 ML VIAL IVPUSH (13:46)
--- NOTE | 2022-09-27 15:32 | MHC.CM.ED ---
P.T. REC STR, REFERRALS SENT. CM WILL CONTINUE TO FOLLOW.
[2022-09-27] MEDS: Atorvastatin Calcium 10 MG TABLET PO (20:25)
[2022-09-27] MEDS: Montelukast Sodium 10 MG TABLET PO (20:25)
[2022-09-27] MEDS: Cholecalciferol (Vitamin D3) 25 MCG TABLET PO (20:25)
[2022-09-27] MEDS: Loratadine 10 MG TABLET PO (20:25)
[2022-09-27] MEDS: 0.9 % Sodium Chloride Flush 3 ML SYRINGE IVFLUSH (20:25)
[2022-09-28 04:00] VITALS: BP 104/55; PULSE 83; RESP 18; TEMP 36.5; O2SAT 96
[2022-09-28] MEDS: Omeprazole 20 MG CAPSULE.DR PO (05:45)
[2022-09-28 07:57] VITALS: BP 107/65; PULSE 86; RESP 17; TEMP 36.3; O2SAT 97
[2022-09-28] MEDS: Ferrous Sulfate 324 MG TABLET.DR PO ×2 (07:58→19:14)
[2022-09-28] MEDS: Dronedarone HCl 400 MG TABLET PO ×2 (07:58→19:14)
[2022-09-28] MEDS: 0.9 % Sodium Chloride Flush 3 ML SYRINGE IVFLUSH ×3 (07:58→19:15)
[2022-09-28] MEDS: Apixaban 5 MG TABLET PO ×2 (07:58→19:14)
--- NOTE | 2022-09-28 09:20 | P.PNGS_ITS ---
Subjective Subjective Date of Service: 09/28/22 Interval history: Says she is fair this morning. Denies pain. Reports occasional nausea. Tolerating full liquids. Does not think she has passed flatus. Ambulated in halls yesterday multiple times. Physical Exam Vital Signs: Vital Signs: Last Vital Signs Temp 97.3 F 09/28/22 07:57 Pulse 86 09/28/22 07:57 Resp 17 09/28/22 07:57 BP 107/65 09/28/22 07:57 Pulse Ox 97 09/28/22 07:57 O2 Del Method 09/28/22 07:57 O2 Flow Rate 2 09/27/22 07:13 BMI result Body Mass Index 27.1 Const: General: comfortable, no acute distress and alert Orientation/consciousness: patient oriented x3 Resp: Effort & Inspection: normal respiratory effort GI: Inspection: Yes distended and Yes incision (clean) Palpation (GI): Soft to palpation, Tenderness to palpation present (GI) (mild, incisional), no guarding and not rigid Percussion: Yes tympanic to percussion Skin: General skin exam: no rashes or lesions noted Neuro: General: patient oriented x3 and moves all extremities Objective Data Active Medications Albuterol Sulfate (Albuterol Sulfate 90 Mcg 8 Gm Inhaler) 2 puff INHALE Q4H PRN PRN Reason: Shortness Of Breath Or Wheezing Apixaban (Apixaban 5 Mg Tablet) 5 mg PO BID [facility] Last Admin: 09/28/22 07:58 Dose: 5 mg Documented By: PIETRO Atorvastatin Calcium (Atorvastatin Calcium 10 Mg Tablet) 10 mg PO BEDTIME [facility] Last Admin: 09/27/22 20:25 Dose: 10 mg Documented By: TALI Dicyclomine HCl (Dicyclomine Hcl 10 Mg Capsule) 20 mg PO TID PRN PRN Reason: abdominal pain Last Admin: 09/26/22 15:29 Dose: 20 mg Documented By: SHADE-SOFFA Docusate Sodium (Docusate Sodium 100 Mg Capsule) 200 mg PO BEDTIME PRN PRN Reason: constipation Dronedarone (Dronedarone Hcl 400 Mg Tablet) 400 mg PO BID [facility] Last Admin: 09/28/22 07:58 Dose: 400 mg Documented By: PIETRO Ferrous Sulfate (Ferrous Sulfate 324 Mg Tablet.Dr) 324 mg PO BID [facility] Last Admin: 09/28/22 07:58 Dose: 324 mg Documented By: PIETRO Loperamide HCl (Loperamide Hcl 2 Mg Capsule) 2 mg PO Q6H PRN PRN Reason: Diarrhea Loratadine (Loratadine 10 Mg Tablet) 10 mg PO BEDTIME [facility] Last Admin: 09/27/22 20:25 Dose: 10 mg Documented By: TALI Meclizine HCl (Meclizine Hcl 25 Mg Tablet) 25 mg PO DAILY PRN PRN Reason: motion sickness Montelukast Sodium (Montelukast Sodium 10 Mg Tablet) 10 mg PO BEDTIME [facility] Last Admin: 09/27/22 20:25 Dose: 10 mg Documented By: TALI Omeprazole (Omeprazole 20 Mg Capsule.) 20 mg PO DAILY@0630 [facility] Last Admin: 09/28/22 05:45 Dose: 20 mg Documented By: TALI Comments: downtime Ondansetron HCl (Ondansetron Hcl 4 Mg/2 Ml Vial) 4 mg IVPUSH Q8H PRN PRN Reason: Nausea and Vomiting Last Admin: 09/27/22 13:46 Dose: 4 mg Documented By: PIETRO Oxybutynin Chloride (Oxybutynin Chloride Er 5 Mg Tab.Er.24) 10 mg PO BEDTIME [facility] Last Admin: 09/27/22 20:25 Dose: 10 mg Documented By: TALI Sodium Chloride (0.9 % Sodium Chloride Flush 3 Ml Syringe) [facility] Last Admin: 09/28/22 07:58 Dose: 3 ml Documented By: PIETRO Tramadol HCl (Tramadol Hcl 50 Mg Tablet) 25 mg PO Q6H PRN PRN Reason: Pain, Moderate (Pain Scale 4-6 Last Admin: 09/27/22 20:33 Dose: 25 mg Documented By: TALI Vitamin D (Cholecalciferol (Vitamin D3) 25 Mcg Tablet) 25 mcg PO BEDTIME [facility] Last Admin: 09/27/22 20:25 Dose: 25 mcg Documented By: TALI Labs CBC & Chem 7: 09/18/22 05:09 09/19/22 09:45 Procedures Date of Service Date of Service: 09/28/22 Progress Note: A&P Assessment and plan (1) S/P exploratory laparotomy: Status: Acute (2) Carcinoid tumor: Status: Acute (3) Small bowel obstruction: Status: Acute Plan 62-year-old female patient with prior history of carcinoid tumor, recently admitted with small-bowel obstruction. She is 1 week post exploratory laparotomy and lysis of adhesions. Has persistent post op ileus, abd remains distended. Continue liquid diet; encouraged continued ambulation. Will order small bowel follow through today. Await GI function. Time Spent With Patient Time: Total time spent is greater than 50% in coordination of care (as documented) at patient's floor/unit and/or counseling patient: Quality Stroke Does the patient have a stroke diagnosis?: No VTE Prior VTE?: No VTE Risk Level:: Medical - moderate - high VTE Device Contraindication: N/A - Device Ordered VTE Drug Contraindication: Treatment Not Indicated
--- NOTE | 2022-09-28 09:43 | P.PNIM_ITS ---
Subjective Subjective Date of Service: 09/28/22 Interval History: Seen in f/u sbo, concern for recurrent carcinoid interval history:Still no BM, no pain Review of Systems no fever +mild abd pain +nausea Physical Exam Vital Signs: Vital Signs: Last Vital Signs Temp 97.3 F 09/28/22 07:57 Pulse 86 09/28/22 07:57 Resp 17 09/28/22 07:57 BP 107/65 09/28/22 07:57 Pulse Ox 97 09/28/22 07:57 O2 Del Method 09/28/22 07:57 O2 Flow Rate 2 09/27/22 07:13 BMI result Body Mass Index 27.1 Const: Other: General: AO X 3, no acute distress Resp: CTA bilateral CVS: S1,S2,RRR GI: hypoactive sounds, minimal tenderness, no distention Skin: No rash Neuro: motor grossly intact Psych: appropriate affect Objective Data Active Medications Albuterol Sulfate (Albuterol Sulfate 90 Mcg 8 Gm Inhaler) 2 puff INHALE Q4H PRN PRN Reason: Shortness Of Breath Or Wheezing Apixaban (Apixaban 5 Mg Tablet) 5 mg PO BID [facility] Last Admin: 09/28/22 07:58 Dose: 5 mg Documented By: PIETRO Atorvastatin Calcium (Atorvastatin Calcium 10 Mg Tablet) 10 mg PO BEDTIME [facility] Last Admin: 09/27/22 20:25 Dose: 10 mg Documented By: TALI Dicyclomine HCl (Dicyclomine Hcl 10 Mg Capsule) 20 mg PO TID PRN PRN Reason: abdominal pain Last Admin: 09/26/22 15:29 Dose: 20 mg Documented By: SHADE-SOFFA Docusate Sodium (Docusate Sodium 100 Mg Capsule) 200 mg PO BEDTIME PRN PRN Reason: constipation Dronedarone (Dronedarone Hcl 400 Mg Tablet) 400 mg PO BID [facility] Last Admin: 09/28/22 07:58 Dose: 400 mg Documented By: PIETRO Ferrous Sulfate (Ferrous Sulfate 324 Mg Tablet.Dr) 324 mg PO BID [facility] Last Admin: 09/28/22 07:58 Dose: 324 mg Documented By: PIETRO Loperamide HCl (Loperamide Hcl 2 Mg Capsule) 2 mg PO Q6H PRN PRN Reason: Diarrhea Loratadine (Loratadine 10 Mg Tablet) 10 mg PO BEDTIME [facility] Last Admin: 09/27/22 20:25 Dose: 10 mg Documented By: TALI Meclizine HCl (Meclizine Hcl 25 Mg Tablet) 25 mg PO DAILY PRN PRN Reason: motion sickness Montelukast Sodium (Montelukast Sodium 10 Mg Tablet) 10 mg PO BEDTIME [facility] Last Admin: 09/27/22 20:25 Dose: 10 mg Documented By: TALI Omeprazole (Omeprazole 20 Mg Capsule.Dr) 20 mg PO DAILY@0630 [facility] Last Admin: 09/28/22 05:45 Dose: 20 mg Documented By: TALI Comments: downtime Ondansetron HCl (Ondansetron Hcl 4 Mg/2 Ml Vial) 4 mg IVPUSH Q8H PRN PRN Reason: Nausea and Vomiting Last Admin: 09/27/22 13:46 Dose: 4 mg Documented By: PIETRO Oxybutynin Chloride (Oxybutynin Chloride Er 5 Mg Tab.Er.24) 10 mg PO BEDTIME S Last Admin: 09/27/22 20:25 Dose: 10 mg Documented By: TALI Sodium Chloride (0.9 % Sodium Chloride Flush 3 Ml Syringe) 3 ml IVFLUSH QSHIFT [facility] Last Admin: 09/28/22 07:58 Dose: 3 ml Documented By: PIETRO Tramadol HCl (Tramadol Hcl 50 Mg Tablet) 25 mg PO Q6H PRN PRN Reason: Pain, Moderate (Pain Scale 4-6 Last Admin: 09/27/22 20:33 Dose: 25 mg Documented By: TALI Vitamin D (Cholecalciferol (Vitamin D3) 25 Mcg Tablet) 25 mcg PO BEDTIME [facility] Last Admin: 09/27/22 20:25 Dose: 25 mcg Documented By: TLAI Labs CBC & Chem 7: 09/18/22 05:09 09/19/22 09:45 Assessment and Plan (1) S/P exploratory laparotomy: Status: Acute (2) Small bowel obstruction: Status: Acute Plan 62-year-old female with past medical history of paroxysmal AFib,? 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 of blacksmith assistant tract, history of carcinoid tumor presents to the hospital with complaints of abdominal pain found to have small-bowel obstruction # high grade small-bowel obstruction d/t adhesion--no BM yet, maybe developping ileus -s/p Exploratory laparotomy, lysis of adhesions on 09/20, bm yet -NGT removed 09/21 and diet advanced to full liquid and so far tolerating to be advanced by surgery -further management and diet advancement per surgery -CT today to rule ileus -Check CBC and BMP # Acute hyperkalemia, resolved # Permanent AFIB--rate controlled, eliquis DVT prophylaxis:? SCDs, eliquis as above Need for inpaitent:Post of care after small bowell surgery out of bed, ambulate Quality Stroke Does the patient have a stroke diagnosis?: No VTE Prior VTE?: No VTE Risk Level:: Medical - moderate - high VTE Device Contraindication: N/A - Device Ordered VTE Drug Contraindication: Treatment Not Indicated
[2022-09-28 10:13] LABS: Hematocrit 32.2 % (37.0-47.0); Hemoglobin 10.5 g/dl (12.0-16.0); Mean Corpuscular HGB Conc 32.6 g/dl (31.0-35.0); Mean Corpuscular Hemoglobin 30.3 pg (27.0-33.0); Mean Corpuscular Volume 92.8 fL (80.0-98.0); Mean Platelet Volume 9.8 fL (9.4-12.3); Platelet Count 314 X10*3/uL (160-400); Red Blood Count 3.47 X10*6/uL (4.20-5.50); Red Cell Distribution Width 16.3 % (11.0-16.0); White Blood Count 7.2 X10*3/uL (4.8-10.8)
[2022-09-28 10:29] LABS: Anion Gap 17 (12-20); Blood Urea Nitrogen 8 mg/dL (9-16); Calcium 7.9 mg/dL (8.4-10.2); Carbon Dioxide 28 mmol/L (22-29); Chloride 103 mmol/L (96-108); Estimated Glomerular Filt Rate > 60; Glucose Random 184 mg/dL (60-115); Potassium 4.8 mmol/L (3.3-5.1); Sodium 143 mmol/L (135-145)
[2022-09-28 10:59] VITALS: BP 109/68; PULSE 89; RESP 17; TEMP 36.3; O2SAT 96
[2022-09-28] MEDS: traMADoL HCL 50 MG TABLET 25 MG PO ×2 (11:33→20:21)
--- NOTE | 2022-09-28 14:11 | MHC.CM.PN ---
PER PREVIOUS CM PT/FAMILY PREFER [facility] FOR STR ONCE PT IS MEDICALLY CLEARED.
[2022-09-28] MEDS: Diatrizoate Meglumine, Sodium 120 ML SOLUTION 100 ML PO (15:20)
[2022-09-28] MEDS: ondansetron HCL 4 MG/2 ML VIAL IVPUSH (15:41)
[2022-09-28 15:44] VITALS: BP 130/73; PULSE 95; RESP 18; TEMP 36.2; O2SAT 97
[2022-09-28] MEDS: Montelukast Sodium 10 MG TABLET PO (19:14)
[2022-09-28] MEDS: Loratadine 10 MG TABLET PO (19:14)
[2022-09-28] MEDS: Cholecalciferol (Vitamin D3) 25 MCG TABLET PO (19:14)
[2022-09-28] MEDS: Atorvastatin Calcium 10 MG TABLET PO (19:14)
[2022-09-28 20:00] VITALS: BP 136/72; PULSE 95; RESP 18; TEMP 36.5; O2SAT 98
[2022-09-29] VITALS (7 sets, daily range): BP systolic 108–125; BP diastolic 60–77; PULSE 73–91; RESP 16–18; TEMP 36–36.6; O2SAT 94–99
[2022-09-29] MEDS: Omeprazole 20 MG CAPSULE.DR PO (05:36)
[2022-09-29] MEDS: 0.9 % Sodium Chloride Flush 3 ML SYRINGE IVFLUSH ×3 (07:43→19:32)
[2022-09-29] MEDS: Dronedarone HCl 400 MG TABLET PO ×2 (07:44→19:31)
[2022-09-29] MEDS: Ferrous Sulfate 324 MG TABLET.DR PO ×2 (07:44→19:32)
[2022-09-29] MEDS: Apixaban 5 MG TABLET PO ×2 (07:44→19:31)
--- NOTE | 2022-09-29 08:55 | HO.PM.IMPN ---
Subjective Subjective Date of Service: 09/29/22 Interval History: Seen in f/u sbo, concern for recurrent carcinoid interval history:Doing well, finally has had a BM , no pain Review of Systems no fever +mild abd pain +nausea Physical Exam Vital Signs: Vital Signs: Last Vital Signs Temp 97.7 F 09/29/22 08:00 Pulse 91 09/29/22 08:19 Resp 18 09/29/22 08:00 BP 125/68 09/29/22 08:19 Pulse Ox 98 09/29/22 08:19 O2 Del Method 09/29/22 08:00 O2 Flow Rate 2 09/27/22 07:13 BMI result Body Mass Index 27.1 Const: Other: General: AO X 3, no acute distress Resp: CTA bilateral CVS: S1,S2,RRR GI: hypoactive sounds, minimal tenderness, no distention Skin: No rash Neuro: motor grossly intact Psych: appropriate affect Objective Data Active Medications Albuterol Sulfate (Albuterol Sulfate 90 Mcg 8 Gm Inhaler) 2 puff INHALE Q4H PRN PRN Reason: Shortness Of Breath Or Wheezing Apixaban (Apixaban 5 Mg Tablet) 5 mg PO BID [facility] Last Admin: 09/29/22 07:44 Dose: 5 mg Documented By: PIETRO Atorvastatin Calcium (Atorvastatin Calcium 10 Mg Tablet) 10 mg PO BEDTIME [facility] Last Admin: 09/28/22 19:14 Dose: 10 mg Documented By: TALI Dicyclomine HCl (Dicyclomine Hcl 10 Mg Capsule) 20 mg PO TID PRN PRN Reason: abdominal pain Last Admin: 09/26/22 15:29 Dose: 20 mg Documented By: SHADE-SOFFA Docusate Sodium (Docusate Sodium 100 Mg Capsule) 200 mg PO BEDTIME PRN PRN Reason: constipation Dronedarone (Dronedarone Hcl 400 Mg Tablet) 400 mg PO BID [facility] Last Admin: 09/29/22 07:44 Dose: 400 mg Documented By: PIETRO Ferrous Sulfate (Ferrous Sulfate 324 Mg Tablet.) 324 mg PO BID [facility] Last Admin: 09/29/22 07:44 Dose: 324 mg Documented By: PIETRO Loperamide HCl (Loperamide Hcl 2 Mg Capsule) 2 mg PO Q6H PRN PRN Reason: Diarrhea Loratadine (Loratadine 10 Mg Tablet) 10 mg PO BEDTIME [facility] Last Admin: 09/28/22 19:14 Dose: 10 mg Documented By: TALI Meclizine HCl (Meclizine Hcl 25 Mg Tablet) 25 mg PO DAILY PRN PRN Reason: motion sickness Montelukast Sodium (Montelukast Sodium 10 Mg Tablet) 10 mg PO BEDTIME [facility] Last Admin: 09/28/22 19:14 Dose: 10 mg Documented By: TALI Omeprazole (Omeprazole 20 Mg Capsule.Dr) 20 mg PO DAILY@0630 [facility] Last Admin: 09/29/22 05:36 Dose: 20 mg Documented By: TALI Ondansetron HCl (Ondansetron Hcl 4 Mg/2 Ml Vial) 4 mg IVPUSH Q8H PRN PRN Reason: Nausea and Vomiting Last Admin: 09/28/22 15:41 Dose: 4 mg Documented By: PIETRO Oxybutynin Chloride (Oxybutynin Chloride Er 5 Mg Tab.Er.24) 10 mg PO BEDTIME [facility] Last Admin: 09/28/22 19:14 Dose: 10 mg Documented By: TALI Sodium Chloride (0.9 % Sodium Chloride Flush 3 Ml Syringe) 3 ml IVFLUSH QSHI Last Admin: 09/29/22 07:43 Dose: 3 ml Documented By: PIETRO Tramadol HCl (Tramadol Hcl 50 Mg Tablet) 25 mg PO Q6H PRN PRN Reason: Pain, Moderate (Pain Scale 4-6 Last Admin: 09/28/22 20:21 Dose: 25 mg Documented By: TALI Vitamin D (Cholecalciferol (Vitamin D3) 25 Mcg Tablet) 25 mcg PO BEDTIME [facility] Last Admin: 09/28/22 19:14 Dose: 25 mcg Documented By: TALI Labs CBC & Chem 7: 09/28/22 09:52 09/28/22 09:52 Labs: Laboratory Results - last 24 hr 09/28/22 09/28/22 09:52 09:52 MCV 92.8 MCH 30.3 MCHC 32.6 RDW 16.3 H Plt Count 314 MPV 9.8 Absolute Nucleated RBC 0.000 Nucleated RBC % (auto) 0.0 Anion Gap 17 Estim Creat Clear Calc 48.0 Estimated GFR > 60 Random Glucose 184 H Calcium 7.9 L D Assessment and Plan (1) Small bowel obstruction: Status: Acute Plan 62-year-old female with past medical history of paroxysmal AFib,? 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 SCDs, eliquis as above Need for inpaitent:Post of care after small bowell surgery out of bed, ambulate Quality Stroke Does the patient have a stroke diagnosis?: No VTE Prior VTE?: No VTE Risk Level:: Medical - moderate - high VTE Device Contraindication: N/A - Device Ordered VTE Drug Contraindication: Treatment Not Indicated
--- NOTE | 2022-09-29 10:51 | PM.PNGS ---
Subjective Subjective Date of Service: 09/29/22 <Lizbet Yee PA-C - Last Filed: 09/29/22 10:55> 09/29/22 <Parish Sanchez MD - Last Filed: 09/29/22 14:43> Interval history: Feels pretty good this morning, no complaints. Had BM and passed some flatus. Tolerating fulls, denies nausea. Continues to ambulate in halls multiple times per day. <Lizbet Yee PA-C - Last Filed: 09/29/22 10:55> Physical Exam Vital Signs: Vital Signs: Last Vital Signs Temp 97.7 F 09/29/22 08:00 Pulse 91 09/29/22 08:19 Resp 18 09/29/22 08:00 BP 125/68 09/29/22 08:19 Pulse Ox 98 09/29/22 08:19 O2 Del Method 09/29/22 08:00 O2 Flow Rate 2 09/27/22 07:13 BMI result Body Mass Index 27.1 <Lizbet Yee PA-C - Last Filed: 09/29/22 10:55> Const: General: comfortable, no acute distress and alert <Lizbet Yee PA-C - Last Filed: 09/29/22 10:55> Orientation/consciousness: patient oriented x3 <Lizbet Yee PA-C - Last Filed: 09/29/22 10:55> Resp: Effort & Inspection: normal respiratory effort <Lizbet Yee PA-C - Last Filed: 09/29/22 10:55> GI: Inspection: Yes distended (mild) and Yes incision (clean, luther intact) <Lizbet Yee PA-C - Last Filed: 09/29/22 10:55> Palpation (GI): Soft to palpation, nontender, no guarding and not rigid <ARMAND Basilio Last Filed: 09/29/22 10:55> Skin: General skin exam: no rashes or lesions noted <ARMAND Basilio Last Filed: 09/29/22 10:55> Neuro: General: patient oriented x3 and moves all extremities <ARMAND Basilio Last Filed: 09/29/22 10:55> Objective Data Active Medications Albuterol Sulfate (Albuterol Sulfate 90 Mcg 8 Gm Inhaler) 2 puff INHALE Q4H PRN PRN Reason: Shortness Of Breath Or Wheezing Apixaban (Apixaban 5 Mg Tablet) 5 mg PO BID [facility] Last Admin: 09/29/22 07:44 Dose: 5 mg Documented By: PIETRO Atorvastatin Calcium (Atorvastatin Calcium 10 Mg Tablet) 10 mg PO BEDTIME [facility] Last Admin: 09/28/22 19:14 Dose: 10 mg Documented By: TALI Dicyclomine HCl (Dicyclomine Hcl 10 Mg Capsule) 20 mg PO TID PRN PRN Reason: abdominal pain Last Admin: 09/26/22 15:29 Dose: 20 mg Documented By: SHADE-SOFFA Docusate Sodium (Docusate Sodium 100 Mg Capsule) 200 mg PO BEDTIME PRN PRN Reason: constipation Dronedarone (Dronedarone Hcl 400 Mg Tablet) 400 mg PO BID [facility] Last Admin: 09/29/22 07:44 Dose: 400 mg Documented By: PIETRO Ferrous Sulfate (Ferrous Sulfate 324 Mg Tablet.) 324 mg PO BID [facility] Last Admin: 09/29/22 07:44 Dose: 324 mg Documented By: PIETRO Loperamide HCl (Loperamide Hcl 2 Mg Capsule) 2 mg PO Q6H PRN PRN Reason: Diarrhea Loratadine (Loratadine 10 Mg Tablet) 10 mg PO BEDTIME [facility] Last Admin: 09/28/22 19:14 Dose: 10 mg Documented By: TALI Meclizine HCl (Meclizine Hcl 25 Mg Tablet) 25 mg PO DAILY PRN PRN Reason: motion sickness Montelukast Sodium (Montelukast Sodium 10 Mg Tablet) 10 mg PO BEDTIME [facility] Last Admin: 09/28/22 19:14 Dose: 10 mg Documented By: TALI Omeprazole (Omeprazole 20 Mg Capsule.) 20 mg PO DAILY@0630 [facility] Last Admin: 09/29/22 05:36 Dose: 20 mg Documented By: TALI Ondansetron HCl (Ondansetron Hcl 4 Mg/2 Ml Vial) 4 mg IVPUSH Q8H PRN PRN Reason: Nausea and Vomiting Last Admin: 09/28/22 15:41 Dose: 4 mg Documented By: PIETRO Oxybutynin Chloride (Oxybutynin Chloride Er 5 Mg Tab.Er.24) 10 mg PO BEDTIME [facility] Last Admin: 09/28/22 19:14 Dose: 10 mg Documented By: TALI Sodium Chloride (0.9 % Sodium Chloride Flush 3 Ml Syringe) 3 ml IVFLUSH QSHIFT [facility] Last Admin: 09/29/22 07:43 Dose: 3 ml Documented By: PIETRO Tramadol HCl (Tramadol Hcl 50 Mg Tablet) 25 mg PO Q6H PRN PRN Reason: Pain, Moderate (Pain Scale 4-6 Last Admin: 09/28/22 20:21 Dose: 25 mg Documented By: TALI Vitamin D (Cholecalciferol (Vitamin D3) 25 Mcg Tablet) 25 mcg PO BEDTIME [facility] Last Admin: 09/28/22 19:14 Dose: 25 mcg Documented By: TLAI <Lizbet Yee PA-C - Last Filed: 09/29/22 10:55> Labs CBC & Chem 7: : 09/28/22 09:52 09/28/22 09:52 <Lizbet Yee PA-C - Last Filed: 09/29/22 10:55> Procedures Date of Service Date of Service: 09/29/22 <Lizbet Yee PA-C - Last Filed: 09/29/22 10:55> Progress Note: A&P Assessment and plan (1) S/P exploratory laparotomy: Status: Acute <ARMAND Basilio Last Filed: 09/29/22 10:55> (2) Small bowel obstruction: Status: Acute <ARMAND Basilio Last Filed: 09/29/22 10:55> Assessment and Plan: 62-year-old female patient with prior history of carcinoid tumor, recently admitted with small-bowel obstruction. She is over 1 week status post exploratory laparotomy and lysis of adhesions. SB follow through yesterday was normal and she is now moving her bowels. Abd remains softly distended with clean incision. Will advance to solid diet, if tolerating, stable for discharge from surgical standpoint. Can f/u with Dr. Sanchez in 1 week in office. <Lizbet Yee PA-C - Last Filed: 09/29/22 10:55> 62-year-old female patient with prior history of carcinoid tumor, recently admitted with small-bowel obstruction. She is over 1 week status post exploratory laparotomy and lysis of adhesions. SB follow through yesterday was normal and she is now moving her bowels. Abd remains softly distended with clean incision. Will advance to solid diet, if tolerating, stable for discharge from surgical standpoint. Can f/u with Dr. Sanchez in 1 week in office. Agree with the above assessment and plan, postoperative ileus is now resolved. Small-bowel follow-through shows prompt passage of contrast into colon without obstruction. Agree with advancing to a solid diet and discharge if tolerated. <Parish Sanchez MD - Last Filed: 09/29/22 14:43> Time Spent With Patient Time: Total time spent is greater than 50% in coordination of care (as documented) at patient's floor/unit and/or counseling patient: <Lizbet Yee PA-C - Last Filed: 09/29/22 10:55> Quality Stroke Does the patient have a stroke diagnosis?: No <Lizbet Yee PA-C - Last Filed: 09/29/22 10:55> VTE Prior VTE?: No <Lizbet Yee PA-C - Last Filed: 09/29/22 10:55> VTE Risk Level:: Medical - moderate - high <Lizbet Yee PA-C - Last Filed: 09/29/22 10:55> VTE Device Contraindication: N/A - Device Ordered <Lizbet Yee PA-C - Last Filed: 09/29/22 10:55> VTE Drug Contraindication: Treatment Not Indicated <Lizbet Yee PA-C - Last Filed: 09/29/22 10:55>
[2022-09-29] MEDS: traMADoL HCL 50 MG TABLET 25 MG PO (19:31)
[2022-09-29] MEDS: Loratadine 10 MG TABLET PO (19:32)
[2022-09-29] MEDS: Atorvastatin Calcium 10 MG TABLET PO (19:32)
[2022-09-29] MEDS: Cholecalciferol (Vitamin D3) 25 MCG TABLET PO (19:32)
[2022-09-29] MEDS: Montelukast Sodium 10 MG TABLET PO (19:32)
[2022-09-30 03:16] VITALS: BP 117/67; PULSE 85; RESP 16; TEMP 36.5; O2SAT 95
[2022-09-30] MEDS: Omeprazole 20 MG CAPSULE.DR PO (05:39)
[2022-09-30 07:47] VITALS: BP 109/64; PULSE 85; RESP 18; TEMP 37.7; O2SAT 96
[2022-09-30] MEDS: Apixaban 5 MG TABLET PO (08:18)
[2022-09-30] MEDS: Ferrous Sulfate 324 MG TABLET.DR PO (08:18)
[2022-09-30] MEDS: Dronedarone HCl 400 MG TABLET PO (08:18)
[2022-09-30] MEDS: 0.9 % Sodium Chloride Flush 3 ML SYRINGE IVFLUSH (08:19)
--- NOTE | 2022-09-30 08:24 | HO.PM.IMPN ---
Subjective Subjective Date of Service: 09/30/22 Interval History: Seen in f/u sbo, concern for recurrent carcinoid interval history:Doing well, finally has had a BM , toelerating regular diet Review of Systems no fever +mild abd pain +nausea Physical Exam Vital Signs: Vital Signs: Last Vital Signs Temp 99.8 F 09/30/22 07:47 Pulse 85 09/30/22 07:47 Resp 18 09/30/22 07:47 BP 109/64 09/30/22 07:47 Pulse Ox 96 09/30/22 07:47 O2 Del Method 09/30/22 07:47 O2 Flow Rate 2 09/27/22 07:13 BMI result Body Mass Index 27.1 Objective Data Active Medications Albuterol Sulfate (Albuterol Sulfate 90 Mcg 8 Gm Inhaler) 2 puff INHALE Q4H PRN PRN Reason: Shortness Of Breath Or Wheezing Apixaban (Apixaban 5 Mg Tablet) 5 mg PO BID [facility] Last Admin: 09/29/22 19:31 Dose: 5 mg Documented By: TALI Atorvastatin Calcium (Atorvastatin Calcium 10 Mg Tablet) 10 mg PO BEDTIME [facility] Last Admin: 09/29/22 19:32 Dose: 10 mg Documented By: TALI Dicyclomine HCl (Dicyclomine Hcl 10 Mg Capsule) 20 mg PO TID PRN PRN Reason: abdominal pain Last Admin: 09/26/22 15:29 Dose: 20 mg Documented By: ABDON Docusate Sodium (Docusate Sodium 100 Mg Capsule) 200 mg PO BEDTIME PRN PRN Reason: constipation Dronedarone (Dronedarone Hcl 400 Mg Tablet) 400 mg PO BID [facility] Last Admin: 09/29/22 19:31 Dose: 400 mg Documented By: TALI Ferrous Sulfate (Ferrous Sulfate 324 Mg Tablet.Dr) 324 mg PO BID [facility] Last Admin: 09/29/22 19:32 Dose: 324 mg Documented By: TALI Loperamide HCl (Loperamide Hcl 2 Mg Capsule) 2 mg PO Q6H PRN PRN Reason: Diarrhea Loratadine (Loratadine 10 Mg Tablet) 10 mg PO BEDTIME [facility] Last Admin: 09/29/22 19:32 Dose: 10 mg Documented By: TALI Meclizine HCl (Meclizine Hcl 25 Mg Tablet) 25 mg PO DAILY PRN PRN Reason: motion sickness Montelukast Sodium (Montelukast Sodium 10 Mg Tablet) 10 mg PO BEDTIME [facility] Last Admin: 09/29/22 19:32 Dose: 10 mg Documented By: TALI Omeprazole (Omeprazole 20 Mg Capsule.Dr) 20 mg PO DAILY@0630 [facility] Last Admin: 09/30/22 05:39 Dose: 20 mg Documented By: TALI Ondansetron HCl (Ondansetron Hcl 4 Mg/2 Ml Vial) 4 mg IVPUSH Q8H PRN PRN Reason: Nausea and Vomiting Last Admin: 09/28/22 15:41 Dose: 4 mg Documented By: PIETRO Oxybutynin Chloride (Oxybutynin Chloride Er 5 Mg Tab.Er.24) 10 mg PO BEDTIME [facility] Last Admin: 09/29/22 19:32 Dose: 10 mg Documented By: TALI Sodium Chloride (0.9 % Sodium Chloride Flush 3 Ml Syringe) 3 ml IVFLUSH QSHIFT [facility] Last Admin: 09/29/22 19:32 Dose: 3 ml Documented By: TALI Tramadol HCl (Tramadol Hcl 50 Mg Tablet) 25 mg PO Q6H PRN PRN Reason: Pain, Moderate (Pain Scale 4-6 Last Admin: 09/29/22 19:31 Dose: 25 mg Documented By: TALI Vitamin D (Cholecalciferol (Vitamin D3) 25 Mcg Tablet) 25 mcg PO BEDTIME [facility] Last Admin: 09/29/22 19:32 Dose: 25 mcg Documented By: TALI Labs CBC & Chem 7: 09/28/22 09:52 09/28/22 09:52 Assessment and Plan (1) Small bowel obstruction: Status: Acute Plan 62-year-old female with past medical history of paroxysmal AFib,? 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 SCDs, eliquis as above Need for inpaitent:Post of care after small bowell surgery out of bed, ambulate Discharge when ok with surgery Quality Stroke Does the patient have a stroke diagnosis?: No VTE Prior VTE?: No VTE Risk Level:: Medical - moderate - high VTE Device Contraindication: N/A - Device Ordered VTE Drug Contraindication: Treatment Not Indicated
--- NOTE | 2022-09-30 10:07 | P.PNGS_ITS ---
Subjective Subjective Date of Service: 09/30/22 Interval history: Feels much better. Had some discomfort with BM/gas but tolerating solid diet without worsening pain, nausea or vomiting. Has had multiple bowel movements and passing continuous flatus now. Has some mild toe pain but ambulating with walker without difficulty. Feels ready for discharge. Physical Exam Vital Signs: Vital Signs: Last Vital Signs Temp 99.8 F 09/30/22 07:47 Pulse 85 09/30/22 07:47 Resp 18 09/30/22 07:47 BP 109/64 09/30/22 07:47 Pulse Ox 96 09/30/22 07:47 O2 Del Method 09/30/22 07:47 O2 Flow Rate 2 09/27/22 07:13 BMI result Body Mass Index 27.1 Const: General: comfortable, no acute distress and alert Orientation/consciousness: patient oriented x3 Resp: Effort & Inspection: normal respiratory effort GI: Inspection: Yes distended (mild, decreasing) and Yes incision (clean) Palpation (GI): Soft to palpation, nontender, no guarding and not rigid Percussion: Yes normal to percussion Skin: General skin exam: no rashes or lesions noted Neuro: General: patient oriented x3 and moves all extremities Objective Data Active Medications Albuterol Sulfate (Albuterol Sulfate 90 Mcg 8 Gm Inhaler) 2 puff INHALE Q4H PRN PRN Reason: Shortness Of Breath Or Wheezing Apixaban (Apixaban 5 Mg Tablet) 5 mg PO BID [facility] Last Admin: 09/30/22 08:18 Dose: 5 mg Documented By: BEULAH Atorvastatin Calcium (Atorvastatin Calcium 10 Mg Tablet) 10 mg PO BEDTIME [facility] Last Admin: 09/29/22 19:32 Dose: 10 mg Documented By: TALI Dicyclomine HCl (Dicyclomine Hcl 10 Mg Capsule) 20 mg PO TID PRN PRN Reason: abdominal pain Last Admin: 09/26/22 15:29 Dose: 20 mg Documented By: SHADE-SOFFA Docusate Sodium (Docusate Sodium 100 Mg Capsule) 200 mg PO BEDTIME PRN PRN Reason: constipation Dronedarone (Dronedarone Hcl 400 Mg Tablet) 400 mg PO BID [facility] Last Admin: 09/30/22 08:18 Dose: 400 mg Documented By: BEULAH Ferrous Sulfate (Ferrous Sulfate 324 Mg Tablet.) 324 mg PO BID [facility] Last Admin: 09/30/22 08:18 Dose: 324 mg Documented By: BEULAH Loperamide HCl (Loperamide Hcl 2 Mg Capsule) 2 mg PO Q6H PRN PRN Reason: Diarrhea Loratadine (Loratadine 10 Mg Tablet) 10 mg PO BEDTIME [facility] Last Admin: 09/29/22 19:32 Dose: 10 mg Documented By: TALI Meclizine HCl (Meclizine Hcl 25 Mg Tablet) 25 mg PO DAILY PRN PRN Reason: motion sickness Montelukast Sodium (Montelukast Sodium 10 Mg Tablet) 10 mg PO BEDTIME [facility] Last Admin: 09/29/22 19:32 Dose: 10 mg Documented By: TALI Omeprazole (Omeprazole 20 Mg Capsule.) 20 mg PO DAILY@0630 [facility] Last Admin: 09/30/22 05:39 Dose: 20 mg Documented By: TALI Ondansetron HCl (Ondansetron Hcl 4 Mg/2 Ml Vial) 4 mg IVPUSH Q8H PRN PRN Reason: Nausea and Vomiting Last Admin: 09/28/22 15:41 Dose: 4 mg Documented By: PIETRO Oxybutynin Chloride (Oxybutynin Chloride Er 5 Mg Tab.Er.24) 10 mg PO BEDTIME [facility] Last Admin: 09/29/22 19:32 Dose: 10 mg Documented By: TALI Sodium Chloride (0.9 % Sodium Chloride Flush 3 Ml Syringe) 3 ml IVFLUSH [facility] Last Admin: 09/30/22 08:19 Dose: 3 ml Documented By: BEULAH Tramadol HCl (Tramadol Hcl 50 Mg Tablet) 25 mg PO Q6H PRN PRN Reason: Pain, Moderate (Pain Scale 4-6 Last Admin: 09/29/22 19:31 Dose: 25 mg Documented By: TALI Vitamin D (Cholecalciferol (Vitamin D3) 25 Mcg Tablet) 25 mcg PO BEDTIME [facility] Last Admin: 09/29/22 19:32 Dose: 25 mcg Documented By: TALI Labs CBC & Chem 7: 09/28/22 09:52 09/28/22 09:52 Procedures Date of Service Date of Service: 09/30/22 Progress Note: A&P Assessment and plan (1) S/P exploratory laparotomy: Status: Acute (2) Small bowel obstruction: Status: Acute Plan 62-year-old female patient with prior history of carcinoid tumor, recently admitted with small-bowel obstruction. She is status post exploratory laparotomy and lysis of adhesions. She is tolerating solid diet without nausea or vomiting and has good GI function. Abd remains softly distended with clean incision. She is ready for discharge to [facility] today. Can f/u with Dr. Sanchez in 1 week in office. Time Spent With Patient Time: Total time spent is greater than 50% in coordination of care (as documented) at patient's floor/unit and/or counseling patient: Quality Stroke Does the patient have a stroke diagnosis?: No VTE Prior VTE?: No VTE Risk Level:: Medical - moderate - high VTE Device Contraindication: N/A - Device Ordered VTE Drug Contraindication: Treatment Not Indicated
--- NOTE | 2022-09-30 10:11 | PM.DS ---
DS: Providers Provider Date of Service: 09/30/22 Date of admission: 09/18/22 02:26 Primary care physician: Patti Crabtree MD Attending physician on admission: Julián Rangel Consults: 09/18/22 02:26 Consult to General Surgery Routine Consulting Provider: Manuel Johnson Reason for consultation: SBO Has provider been notified: Yes 09/18/22 15:16 Consult to Hematology / Oncology Routine Consulting Provider: Joshua Quinonez Reason for consultation: recurrent metastatic carcinoid Has provider been notified: No Attending physician on discharge: Parish Sanchez DS: Transfer Hospital Acceptance Reason for Transfer: s/p exploratory laparotomy for SBO; deconditioned Name of Facility: [facility] DS: Diagnosis Discharge Diagnosis (1) S/P exploratory laparotomy: Status: Acute (2) Small bowel obstruction: Status: Acute DS: Summary Hospital Course Hospital Course: HPI from day of admission: 62-year-old female with past medical history of metastatic carcinoid tumor/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 status post surgical intervention and currently followed by oncology, GERD, paroxysmal AFib on Eliquis,-D deficiency, among others who presents to the hospital with complaints of significant abdominal pain that started the night prior.? Patient reports severe, diffuse abdominal pain associated with nausea, vomiting, nonradiating.? reports no fever no chills.? Reports last BM was night prior,with no flatus. Denies any chest pain, no headache, no change in vision, no chest pain, no shortness of breath, no urinary symptoms and no lower extremity edema.? On arrival to the ED patient hemodynamically stable to significant abnormal vitals Labs are significant for hemoglobin of 11.6, hematocrit of 36.8, potassium 5.9 with no EKG changes, lactic acid of 2.8 repeat of 1.8 after IV fluid.? UA negative.? Abdomen pelvic CT shows high-grade small-bowel obstruction in the central abdomen potentially due to local tumor involvement or adhesions.? A 1.5 x 2 cm focus of nodular wall thickening in the small bowel in the right upper quadrant potentially corresponding to a small bowel lesion.? Yaritza 3 mm solid pulmonary nodule in the left upper lobe Hospital course: The patient was admitted to the medical service. Her surgical history included operative resection of a well-differentiated 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 tumor by Dr. Sanchez on 04/15/2019 that involved the small bowel mesentery and required a small bowel resection due to expected devascularization during resection of the mesentery.?An NGT was inserted in the ED for treatment of the SBO and surgery was consulted. Her reynaquis was helf for possible surgical intervention. Her symptoms did not improve over the first few days and the obstruction seemed unlikely to improve without surgical exploration. It was therefore recommended to proceed with exploratory laparotomy, lysis of adhesions, possible bowel resection or bypass. She was added onto the OR schedule for the following day. On 09/20/22, a exploratory laparotomy lysis of adhesions was performed by Dr. Sanchez without complication. Operative findings included small bowel obstruction due to adhesions adjacent to prior small bowel resection. She tolerated the procedure well and was admitted back to the medical/surgical floor. She had an uncomplicated but lengthy post operative course due to a post op ileus. On POD #1, she felt fairly well with only mild incisional pain. She had very scanty NGT output. Her abdomen was not very distended and the small bowel was not significantly distended intraoperatively. The NGT was therefore clamped. She remained without nausea/vomiting or increasing abd pain and the NGT was removed. She was started on clear liquids which she tolerated. She was advanced to full liquids a couple days later. She was ambulated and PT was consulted for dispo planning who recommended STR. She was very slow to regain bowel function due to a prolonged ileus. A small bowel follow through was obtained when she was a week post op which showed normal passage of contrast into the colon. She began moving her bowels and passing continuous flatus following this. Her diet was advanced to solid. She was seen the following day and was tolerating the solid diet without nausea or vomiting. She continued to have good bowel function. Her pain was minimal. Her abdomen was benign and mildly distended with a clean incision, luther intact. She was surgically and medically stable for transfer to STR today, 09/30/22. She is to follow up in 1 week in office with Dr. Sanchez. She is to resume all home meds. Eliquis was resumed on post operative day 2 (09/22/22). Status at Discharge Functional status at discharge: uses cane/walker Overall status at discharge: patient is progressing back to baseline Time Spent with Patient Time attestation: Total time spent providing and/or coordinating discharge services: Discharge coordination time: Greater than 30 minutes Quality: Safe Use of Opioids Does Pt have an Active Cancer Diagnosis on the Problem List?: Yes Opioid Measure Date for [facility] Report: 08/31/22 Opioid Measure Time for [facility] Report: 10:34 Quality: Stroke Does the patient have a stroke diagnosis?: No Physical Exam Vital Signs: Vital Signs: Last Vital Signs Temp 99.8 F 09/30/22 07:47 Pulse 85 09/30/22 07:47 Resp 18 09/30/22 07:47 BP 109/64 09/30/22 07:47 Pulse Ox 96 09/30/22 07:47 O2 Del Method 09/30/22 07:47 O2 Flow Rate 2 09/27/22 07:13 BMI result Body Mass Index 27.1 Const: General: comfortable, no acute distress and alert Orientation/consciousness: patient oriented x3 Resp: Effort & Inspection: normal respiratory effort Cardio: Rate: regular rate GI: Inspection: Yes distended (mild, softly) and Yes incision (clean, luther intact) Palpation (GI): Soft to palpation, nontender, no guarding and not rigid Percussion: Yes normal to percussion Skin: General skin exam: no rashes or lesions noted Neuro: General: patient oriented x3 and moves all extremities Discharge Plan Discharge Anticipated Discharge Date/Time: 09/30/22 08:27 Patient Disposition: er [facility] Discharge Diagnosis: Small bowel obstruction, recurrent carcinoid tumor Referrals: Parish Sanchez MD [Physician] - 1 Week Physician,Humza Adam [Physician] - 1 Week Discharge Medications: Continued meclizine 25 mg tablet 25 mg PO DAILY PRN (Reason: motion sickness) 90 Days Qty: 90 3RF Hold Instructions: Resume on 09/21/22. dicyclomine 20 mg tablet 20 mg PO TID PRN (Reason: abdominal pain) 30 Days Qty: 60 0RF Hold Instructions: Resume on 09/21/22. Eliquis 5 mg tablet 5 mg PO BID Qty: 60 5RF Hold Instructions: Resume on 09/21/22. Multaq 400 mg tablet 400 mg PO BID 30 Days Qty: 60 5RF Hold Instructions: Resume on 09/21/22. loperamide 2 mg Capsule 2 mg PO Q6H PRN (Reason: Diarrhea) Hold Instructions: Resume on 09/21/22. tramadol 50 mg Tablet 50 mg PO DAILY PRN (Reason: Pain) Qty: 30 0RF Hold Instructions: Resume on 09/21/22. albuterol sulfate 90 mcg/actuation Hfa Aerosol Inhaler 2 puff INHALATION Q4-6H PRN (Reason: Shortness Of Breath Or Wheezing) omeprazole 20 mg capsule,delayed release(DR/EC) 20 mg PO DAILY@0630 Hold Instructions: Resume on 09/21/22. oxybutynin chloride 10 mg tablet extended release 24hr 10 mg PO BEDTIME Hold Instructions: Resume on 09/21/22. simvastatin 20 mg tablet 20 mg PO BEDTIME Hold Instructions: Resume on 09/21/22. ferrous sulfate 325 mg (65 mg iron) tablet 325 mg PO BID Hold Instructions: Resume on 09/21/22. montelukast 10 mg tablet 10 mg PO BEDTIME Hold Instructions: Resume on 09/21/22. loratadine 10 mg tablet 10 mg PO BEDTIME Hold Instructions: Resume on 09/21/22. cholecalciferol (vitamin D3) 25 mcg (1,000 unit) capsule 1,000 unit PO BEDTIME Hold Instructions: Resume on 09/21/22. docusate sodium [Colace] 100 mg capsule 200 mg PO BEDTIME PRN (Reason: constipation) 30 Days Qty: 60 3RF Hold Instructions: Resume on 09/21/22. Rx Instructions: as need for constipation- stop if diarrhea Discharge Orders: Discharge Order (Routine); Ordered 09/30/22 Ordered By: Lizbet Yee Diet: Advance to usual diet Activity on Discharge: As tolerated Stand Alone Forms: Patient Portal Discharge page Activity Restrictions/Additional Instructions: If the incision area is tender, you may apply an ice pack for short intervals (No more than 20 minutes on, followed by at least 20 minutes off). Do not apply heat. Do not use creams, lotions, or topical antibiotics unless instructed to do so by your surgeon. These can cause infection or allergic reaction. Ok to shower. You have luther closing your incision and these will be removed approximately 10-14 days after surgery. NO HEAVY LIFTING (>10lbs) or strenuous activity. Follow up in office with Dr. Sanchez in 1 week. ([phone]) Call Your Doctor If: -Your temperature exceeds 101.5? F -You experience excessive pain or swelling -You have an unexpected reaction to medication -You have excessive bleeding -You experience continued vomiting/nausea -Your incision begins to separate -Your incision shows signs of infection such as increased redness, swelling, excessive pain, drainage (light blood or clear fluid is normal) or heat Care Plan Goals: Return to baseline health and gradual return to activity following recovery period. Health Concerns: carcinoid tumor SBO afib Plan of Treatment: s/p ex lap, QI Assessment: DOing well post op
--- NOTE | 2022-09-30 11:49 | MHC.CM.PN ---
PT MEDICALLY CLEARED FOR D/C TO [facility] FOR STR, GREG FOR BLS TRANPORT
[2022-09-30 12:41] LABS: COVID-19 Test Negative (Negative); IDNOW Serial# 16C4AD1C
--- NOTE | 2022-09-30 14:13 | MHC.CM.PN ---
CM MET W/PT'S MHA WORKER CRYSTAL AFTER PT DISCHARGED FROM UNIT AND SHE REPORTED PT RECEIVES A MONTHLY SHOT W/COOLING PERIOD FOR ENDOMETRIAL NUERO SARCOMA AND IS NEXT DUE ON Sep AT 1PM, PER EAMON PT WILL BE THERE FOR APPROX 4HRS. PT HAD ALREADY LEFT BUILDING AND LIAISON AT [facility] MADE AWARE VIA PHONE CALL AT 2:12PM.
== END 2022-09-30 14:00 | disposition skilled nursing facility (03) | DRG 336 ==
LOC: HO.ED 22:18 → HO.EDOVER 09-18 02:06 → HO.S3 09-18 06:26
PROVIDERS: Physician Assistant; Surgery; Admitting Provider Internal Medicine; Emergency Provider Emergency Medicine; PCP Internal Medicine; Visit Provider Internal Medicine
PROC: 0DNW0ZZ Release Peritoneum, Open Approach (ICD-10-PCS; CPT 49000; principal; 2022-09-20 12:10)
DX: K56.50 Intestinal adhesions [bands], unspecified as to partial versus complete obstruction (principal); C7A.092 Malignant carcinoid tumor of the stomach; I48.21 Permanent atrial fibrillation; K56.7 Ileus, unspecified; E87.5 Hyperkalemia; I48.0 Paroxysmal atrial fibrillation; D63.0 Anemia in neoplastic disease; K21.9 Gastro-esophageal reflux disease without esophagitis; Q96.9 Turner's syndrome, unspecified; Z20.822 Contact with and (suspected) exposure to COVID-19; Z79.01 Long term (current) use of anticoagulants; Z79.899 Other long term (current) drug therapy
CPT/HCPCS: 36415; 71045; 74018; 74177; 74250; 80048; 80076; 81003; 83036; 83605; 83690; 83735; 84132; 85025; 85027; 87040; 87635; 93005; 97110; 97116; 97162; 99285; J0131; J0610; J0690; J1100; J1170; J2250; J2270; J2405; J2795; J3010; Q9967

== ENCOUNTER → 2022-10-07 14:28 | Outpatient (BNVA) | payer MEDICARE, MEDICAID, SELFPAY | PROVIDERS: PCP Internal Medicine; Visit Provider Surgery | DX: Z98.890 Other specified postprocedural states (principal); Z87.19 Personal history of other diseases of the digestive system | CPT/HCPCS: 99212 ==

== ENCOUNTER 2022-11-18 10:47 | Day surgery (SDC) | payer MEDICARE, MEDICAID, SELFPAY ==
[2022-11-04 12:28] VITALS: BMI 25.2
[2022-11-04 12:39] VITALS: BP 99/58; PULSE 70; RESP 20; O2SAT 97
[2022-11-18 13:03] VITALS: BP 112/60; PULSE 78; RESP 18; TEMP 36.1; O2SAT 99; BMI 26.7
[2022-11-18] MEDS: Lactated Ringers 1,000 ML 100 ML IVCONT (13:30)
--- NOTE | 2022-11-18 13:37 | HO.ANESPROP2 ---
HPI - Anesthesia Eval Consult details Narrative: 62 yr old for colon screen PMFSH Active Problems Active Problems: All Active Problems (Updated 11/04/22 @ 12:45 by Zuleyka Bourne RN) Metastatic carcinoid tumor (Chronic) Hyperkalemia (Acute) Vitamin D deficiency (Acute) Chronic vertigo (Acute) Hospital discharge follow-up (Acute) Orthostatic hypotension (Acute) Dizziness (Acute) Chest discomfort (Acute) Stomach upset (Acute) GERD (gastroesophageal reflux disease) (Acute) Hospital discharge follow-up (Acute) Non-cardiac chest pain (Acute) Upper respiratory tract infection (Acute) Small bowel obstruction (Acute) Hogan syndrome (Acute) Carcinoid tumor (Acute) S/P exploratory laparotomy (Acute) IBS (irritable bowel syndrome) (Acute) Constipation (Acute) Overactive bladder (Acute) Environmental allergies (Acute) Neuroendocrine neoplasm of gastrointestinal tract (Chronic) Past Medical History Medical History (Updated 11/04/22 @ 12:45 by Zuleyka Bourne RN) Afib Anemia Arthritis Asthma Colon polyp Constipation COVID-19 vaccine administered Diabetes Environmental allergies Gastric polyp GERD (gastroesophageal reflux disease) History of COVID-19 Hyperlipemia IBS (irritable bowel syndrome) Lipid disorder Neuroendocrine neoplasm of gastrointestinal tract Overactive bladder Vitamin D deficiency Family History Family History Father Afib Pneumonia Brother Afib Heart disease Brother Heart disease Mother Unknown family medical history Family history of problems with anesthesia: No Surgical History Surgical History (Updated 11/04/22 @ 12:26 by Zuleyka Bourne RN) H/O exploratory laparotomy (09/20/22) History of colonoscopy History of esophagogastroduodenoscopy Hx of resection of small bowel History of Problems with Anesthesia: No Social History Social History Household Members: None Housing: Apartment Housing Other:: mental health association [facility] Are you a primary healthcare technician to a significant other at home: No Do you presently have 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 or 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 (cleaning person, 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) Alcohol intake: never Patient Tobacco Use Status: Never used Tobacco e-Cigarette/Vaping Use: Never Used Second Hand Smoke Exposure: No Use of substances other than those prescribed or required for medical reasons: No Have you been hit, kicked, punched, or otherwise hurt by someone within the past year? If so, by whom?: No Advance Directives: Yes Advance Directives Information Provided: Yes Advance Directives on File: Yes Advance Directives Date on File: 12/01/21 Recently lost weight without trying: No Eating poorly because of decreased appetite: No Nutrition Risks: No Nutritional Risk Poor oral hygiene: No service: No Current occupational status: disabled Cognitive needs: No Hearing needs: No Vision needs: Yes Meds Allergies Allergy/AdvReac Type Severity Reaction Status Date / Time Chocolate Allergy Mild Rash Verified 11/03/22 10:01 erythromycin base AdvReac Intermediate GI UPSET Verified 10/07/22 14:41 [Erythromycin Base] Motrin AdvReac Intermediate GI Upset, Verified 11/03/22 10:00 increases pain Environmental Allergy Mild Itchy Eyes Uncoded 11/04/22 12:19 Active Medications: Current Medications Lactated Ringer's (Lr) 1,000 mls @ 100 mls/hr IVCONT .Q10H HERBERT Last Admin: 11/18/22 13:30 Dose: 100 mls/hr Home Medications Medication Instructions Recorded Confirmed Last Taken Type loperamide 2 mg capsule 2 mg PO Q6H PRN Diarrhea 08/11/20 11/04/22 Unknown History albuterol sulfate 90 mcg/actuation 2 puff inhalation Q4-6H PRN 09/18/22 11/04/22 Unknown History aerosol inhaler Shortness Of Breath Or Wheezing ferrous sulfate 325 mg (65 mg 325 mg PO BID 09/18/22 11/04/22 09/17/22 History iron) tablet loratadine 10 mg tablet 10 mg PO BEDTIME 09/18/22 11/04/22 09/16/22 History montelukast 10 mg tablet 10 mg PO BEDTIME 09/18/22 11/04/22 09/16/22 History omeprazole 20 mg capsule,delayed 20 mg PO DAILY@0630 09/18/22 11/04/22 11/18/22 History release oxybutynin chloride 10 mg 10 mg PO BEDTIME 09/18/22 11/04/22 09/16/22 History tablet,extended release 24 hr simvastatin 20 mg tablet 20 mg PO BEDTIME 09/18/22 11/04/22 09/16/22 History Exam Exam Date and Time: November 18, 2022 1337 Height,Weight and Vital Signs: Height 4 ft 10 in Weight 58.06 kg Last Vital Signs Temp 97.0 F 11/18/22 13:03 Pulse 78 11/18/22 13:03 Resp 18 11/18/22 13:03 BP 112/60 11/18/22 13:03 Pulse Ox 99 11/18/22 13:03 O2 Del Method 11/18/22 13:03 Airway Mallampati Class: II TM Dist: >3cm Neck ROM: Full Heart: rrr Lungs: cta Assessment and Plan Assessment Anesthesia Assessment: Anesthesia Plan Discussed and Chart Reviewed Final Anesthetic Review Family History of Problems with Anesthesia: No History of Problems with Anesthesia: No Final Preanesthetic Review: No Changes in Pt Med Stat, Meds/Allgs Chart Reviewed, Consent Obtained/Reviewed and Anes Risks/Benef Reviewed Patient Risk: Low Procedure Risk: Low Anesthetic Plan Anesthetic Plan: MAC: and Agree w/ Assess. and Plan Disposition: Standard PACU
--- NOTE | 2022-11-18 14:11 | P.HPSUR_ITS ---
Pre-Procedural Eval Section A Date of Service: 11/18/22 The patient is an INPATIENT: No The History & Physical has been completed within 30 days and I have reviewed it.: No Section B Chief Complaint: Irritable bowel syndrome without diarrhea Details of Present Illness: Colon cancer screening, IBS Relevant Family History (Specify if Yes): No Relevant Social History: None Present Medications: see Short Stay Collaborative assessment Medical History: Significant History (Afib Anemia Arthritis Asthma Colon polyp Constipation Diabetes Environmental allergies Gastric polyp GERD (gastroesophageal reflux disease) Hyperlipemia IBS (irritable bowel syndrome) Lipid disorder Neuroendocrine neoplasm of gastrointestinal tract Overactive b ladder Paroxysmal atrial fibrillation V) History of Previous Operations: Relevant previous surgery/procedure and date(s) (History of colonoscopy History of esophagogastroduodenoscopy) Allergies: Allergies Allergy/AdvReac Type Severity Reaction Status Date / Time Chocolate Allergy Mild Rash Verified 11/03/22 10:01 erythromycin base AdvReac Intermediate GI UPSET Verified 10/07/22 14:41 [Erythromycin Base] Motrin AdvReac Intermediate GI Upset, Verified 11/03/22 10:00 increases pain Environmental Allergy Mild Itchy Eyes Uncoded 11/04/22 12:19 Review of Systems Sugical H&P ROS: Negative: Constitution, Cardiovascular, Respiratory and Gastrointestinal Exam Surgical H&P Exam: Normal: Heart, Normal: Lungs, Normal: Extremities and Normal: Abdomen Plan Diagnosis/Plan: Unchanged I have reviewed the history and physical and performed a pertinent physical examination on my patient. No changes have occurred unless specified. Time Spent With Patient Time: Total time managing care of this patient today ____ minutes.
--- NOTE | 2022-11-18 14:24 | PM.OP ---
Brief Operative Note Date of Service: 11/18/22 Pre-op diagnosis: Colon cancer screening, IBS Post-op diagnosis: other (Diverticulosis) Procedure: COLONOSCOPY TO CECUM WITH BIOPSIES Surgeon: Samuel Watters MD Anesthesia: MAC Was an Neonatal Pediatric Nurse used for this Procedure?: Yes Neonatal Pediatric Nurse: Anahi Chavarria Estimated blood loss (mL): 0 Pathology: other ( A. random right colon bxs, R/O microscopic colitis B. random left colon bxs, R/O microscopic colitis) Condition: stable Disposition: PACU
--- NOTE | 2022-11-18 14:25 | W.PM.OPN ---
Operative Note Operative Note Date of Service: 11/18/22 Narrative: Pre-op diagnosis: Colon cancer screening, IBS Post-op diagnosis:?other (Diverticulosis) Surgeon: Samuel Watters MD Anesthesia:?MAC COLONOSCOPY TILL CECUM WITH BIOPSIES Consent: Indications for the procedure and potential complications of bleeding, perforation, reaction to medications and missed diagnosis were discussed with the patient and informed consent was obtained. Instrument: Olympus PCF H 190 L variable stiffness pediatric colonoscope Monitoring: Vital signs and clinical assessment, intermittent blood pressure monitoring, continuous EKG monitoring, Pulse oximetry and Carbon Dioxide monitoring were done throughout the procedure. Colon withdrawl time was 20 minutes. Procedure: The patient was placed in the left lateral decubitis position and pre-procedure medications were administered. After a digital rectal examination of the ano-rectum, the video colonoscope was inserted into the rectum and advanced through the colon to the cecum. The colonoscope was slowly withdrawn in a retrograde panoramic fashion and the colon mucosa was carefully examined including a retroflexed view of the rectum. Findings and interventions are described below. Procedure Difficulty: Colon was long and tortuous and there was recurrent loop formation. Patient was placed in the supine position and LLQ pressure was applied to intubate the ascending colon Findings: Terminal Ileum: Not evaluated Cecum: Normal Ascending Colon: Normal Transverse Colon: Normal Descending Colon: Normal Sigmoid Colon: Moderate diverticulosis Rectum: Normal Ano-rectum: Normal Colon preparation: Good after copious irrigation Impression and Post Procedure Diagnosis: Colonoscopy Findings: No polyps were detected. Random biopsies were obtained from the right and left colon to check for microscopic colitis Moderate diverticulosis seen in the sigmoid colon Plan: Await pathology results Patient has an appointment on 12/01/22 in the GI Clinic with RAVINDER Rivers. Repeat Colonoscopy in 10 years if biopsies are normal. Above findings were reviewed with the patient and diverticulosis handout was given in the discharge area
[2022-11-18 15:20] VITALS: BP 91/55; PULSE 66; RESP 20; TEMP 36.4; O2SAT 98
[2022-11-18 15:35] VITALS: BP 114/81; PULSE 83; RESP 18; TEMP 36.1; O2SAT 99
[2022-11-18 15:50] VITALS: BP 112/49; PULSE 75; RESP 16; TEMP 36.2; O2SAT 100
[2022-11-18 16:05] VITALS: BP 117/57; PULSE 74; RESP 16; TEMP 36.6; O2SAT 100
== END 2022-11-18 16:40 | disposition home or self-care (01) ==
PROVIDERS: PCP Internal Medicine; Visit Provider Internal Medicine Gastroenterology
PROC: 0DJD8ZZ Inspection of Lower Intestinal Tract, Via Natural or Artificial Opening Endoscopic (ICD-10-PCS; CPT 45378; principal; 2022-11-18 13:50)
DX: K58.9 Irritable bowel syndrome, unspecified (principal); K59.00 Constipation, unspecified; K57.30 Diverticulosis of large intestine without perforation or abscess without bleeding; K21.9 Gastro-esophageal reflux disease without esophagitis; C7B.8 Other secondary neuroendocrine tumors; K31.7 Polyp of stomach and duodenum; D64.9 Anemia, unspecified; I48.0 Paroxysmal atrial fibrillation; J45.909 Unspecified asthma, uncomplicated; Z79.01 Long term (current) use of anticoagulants; Z79.899 Other long term (current) drug therapy; Z86.16 Personal history of COVID-19
CPT/HCPCS: 45380; 88305

== ENCOUNTER → 2022-11-30 13:57 | Outpatient (REF) | payer MEDICARE, MEDICAID, SELFPAY ==
--- NOTE | 2022-11-30 14:01 | CA_ITS ---
Transthoracic Echocardiogram Patient (Last, First, Middle): Jack Urrutia N Gender: Female Date of : 1960 Age: 62 Procedure Date: 11/30/2022 Procedure Type: Transthoracic Echocardiogram Location: OP Height: 147.32 cm Weight: 56.7 kg BSA: 1.49 m2 Heart Rate: 84 bpm BP: 118 / 64 mmHg Engine Lathe Operator: SB Referring MD: Chapo Avelar MD Student Worker: Chapo Avelar MD Symptoms: I48.0 - Paroxysmal atrial fibrillation Study Quality: Adequate ECG Rhythm: Sinus Conclusions: - 1. Normal LV systolic function with LVEF of 60 65% 2. [id number] mitral regurgitation 3. Normal RV systolic pressure 4. No pericardial effusion Findings Left Ventricle Normal left ventricular size, thickness, and systolic function. The visually estimated ejection fraction is between 60-65%. Spectral Doppler is indicative of a normal filling pattern. Peak GLS is -17 %, borderline normal Right Ventricle Normal right ventricular cavity size and systolic function. Atria Both atria are normal in size. Interatrial shunt cannot be excluded. Aortic Valve Normal aortic valve structure and function. There is no aortic valve stenosis. There is no aortic valve regurgitation. Mitral Valve There is mild anterior mitral leaflet thickening. There is mild to moderate mitral valve regurgitation. There is no mitral valve stenosis. Pulmonic Valve The pulmonic valve was not well visualized. Tricuspid Valve Likely normal tricuspid valve structure and function. There is trace tricuspid valve regurgitation. The right ventricular systolic pressure is normal. The right ventricular systolic pressure is 18 mmHg. Normal right atrial pressure. There is no evidence of pulmonary hypertension. Great Vessels All visible segments of the aorta are normal in size. The pulmonary artery was not well visualized. Venous The inferior vena cava is normal in size and collapses greater than 50% with inspiration. Pericardium/Pleural There is no evidence of pericardial effusion. Measurements 2D Linear Measurements IVSd: 0.95 0.6-0.9/0.6-1.0 cm LVIDd: 4.32 3.9-5.3/4.2-5.9 cm LVIDd Index: 2.90 2.4-3.2/2.2-3.1 cm/m2 LVIDs: 3.11 2.0-3.6 cm LVPWd: 0.50 0.7-1.1 cm LA Diam: 3.10 2.7-3.8/3.0-4.0 cm LAIDs Index: 2.08 1.5-2.3 cm/m2 LV Mass: 116.04 67-162/88-224 g LV Mass Index: 77.88 43-95/49-115 g/m2 LVOT Diam: 1.70 3.0+(-)1.3 cm 2D Systolic Function EF 4C: 61.20 >55% EF 2C: 58.50 >55% EF BiP: 59.60 >55% Mitral Valve MV Pk E: 1.05 MV PK A: 0.61 MV Decel Time: 215.00 E/A: 1.70 E'Lateral: 6.85 E'Medial: 7.29 E/E' Med: 14.40 E/E' Lat: 15.30 PHT: 63.00 MVA PHT: 3.49 Decel Dukes: 4.89 MR Vol - PW Dopp: 13.76 MR VTI: 1.72 MR ERO: 8.00 MR Alias Gurjit: 0.39 MR RAD: 0.40 Aortic Valve AoV Pk Gurjit: 1.09 AoV Pk Grad: 5.00 NEVAEH: 1.88 LVOT LVOT Pk Gurjit: 0.91 LVOT Mn Gurjit: 0.64 LVOT VTI: 0.19 LVOT Pk Grad: 3.00 LVOT Mn Grad: 2.00 LVOT Diam: 1.70 LVOT Area: 2.27 Diastolic Function MV Pk E: 1.05 MV Pk A: 0.61 E/A: 1.70 E'Medial: 7.29 E/E' Med: 14.40 E' Laterial: 6.85 E/E' Lat: 15.30 Right Ventricle TAPSE (mm): 18.70 TVS' Gurjit: 11.20 Tricuspid Valve TR Pk Gurjit: 1.94 TR Pk Grad: 15.00 RA Press: 3.00 RVSP: 18.00 Great Vessels Aorta Sinus of Valsalva: 2.70 2.0-3.5 cm Ao Asc: 2.80 2.1-3.4 cm Pulmonary Valve PV Pk Gurjit: 0.95 Peak PV Grad: 4.00 Updated in Other Vendor System with Status of Final Chapo Avelar MD electronically signed on 11/30/2022 4:48:42 PM with status of Final
== END ==
LOC: HO.CARD 13:57
PROVIDERS: PCP Internal Medicine; Visit Provider Internal Medicine Cardiovascular Disease
DX: I48.0 Paroxysmal atrial fibrillation (principal)
CPT/HCPCS: 93306; 93356

== ENCOUNTER → 2022-12-01 12:59 | Outpatient (BNVA) | payer MEDICARE, MEDICAID, SELFPAY | PROVIDERS: PCP Internal Medicine; Visit Provider Physician Assistant | DX: D3A.8 Other benign 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 tumors (principal); K21.9 Gastro-esophageal reflux disease without esophagitis | CPT/HCPCS: 99212 ==

== ENCOUNTER → 2022-12-20 14:12 | Outpatient (BNVA) | payer MEDICARE, MEDICAID, SELFPAY | PROVIDERS: PCP Internal Medicine; Referring Provider Internal Medicine; Visit Provider Internal Medicine Cardiovascular Disease | DX: I48.0 Paroxysmal atrial fibrillation (principal); I95.9 Hypotension, unspecified; R00.1 Bradycardia, unspecified | CPT/HCPCS: 93005; 99212 ==

== ENCOUNTER 2023-01-04 13:15 | Outpatient (REF) | payer MEDICARE, MEDICAID, SELFPAY ==
--- NOTE | ~2023-01-04 | MM_ITS ---
EXAMINATION: MM SCREENING DIGITAL BREAST TOMOSYNTHESIS, BILATERAL CLINICAL INFORMATION: Screening. Asymptomatic. The lifetime risk of breast cancer based on the Tyrer-Cuzick Model is 8%. COMPARISON: Mammography: December 10, 2021 and studies dating back to September 01, 2016 TECHNIQUE: Digital breast tomosynthesis is performed in both the craniocaudal and mediolateral oblique views along with computer-aided detection (CAD). Synthesized 2D images are generated from the tomosynthesis. Additional right exaggerated craniocaudal view performed. FINDINGS: There are scattered areas of fibroglandular density (ACR BI-RADS breast composition Category b). There are no new significant masses, abnormal calcifications, or other abnormalities. Bilateral stable calcifications are again evident. MM/MM tomosynthesis screening BI IMPRESSION: No significant changes ASSESSMENT: BI-RADS 2: Benign RECOMMENDATION: Routine annual mammography screening. This patient's information was entered into a reminder system with a target due date for their next mammogram.
== END 2023-01-04 13:16 | disposition home or self-care (01) ==
LOC: HO.MAMMO 13:15
PROVIDERS: PCP Internal Medicine; Visit Provider Internal Medicine
DX: Z12.31 Encounter for screening mammogram for malignant neoplasm of breast (principal)
CPT/HCPCS: 77063; 77067

== ENCOUNTER → 2023-03-16 13:52 | Outpatient (BNVA) | payer MEDICARE, MEDICAID, SELFPAY | PROVIDERS: PCP Internal Medicine; Referring Provider Internal Medicine; Visit Provider Internal Medicine Cardiovascular Disease | DX: I49.1 Atrial premature depolarization (principal) | CPT/HCPCS: 93005 ==

== ENCOUNTER 2023-06-07 13:28 | Outpatient (REF) | payer MEDICARE, MEDICAID, SELFPAY ==
--- NOTE | ~2023-06-07 | CT_ITS ---
EXAMINATION: CT ABDOMEN AND PELVIS WITH CONTRAST CLINICAL INFORMATION: Neuroendocrine tumor COMPARISON: Previous CT scans most recent from August 2022 TECHNIQUE: Multidetector volumetric images were obtained from the superior aspect of the liver through the pubic symphysis following administration 85 mL of Omnipaque 350 intravenous contrast. Sagittal and coronal reformatted images were obtained on the technologist's workstation. Oral contrast: Yes This CT examination was performed using dose optimization techniques as appropriate, variously including the following: *Automated exposure control *Adjustment of mA and/or kV according to patient size (this includes techniques or standardized protocols for targeted exams where dose is matched to indication/reason for exam; i.e. extremities or head) *Use of iterative reconstruction technique DLP: mGy-cm FINDINGS: LUNG BASES: The visualized lung bases are unremarkable. LIVER, GALLBLADDER, AND BILIARY TREE: The liver is normal in size, shape, and attenuation. No focal hepatic lesion or biliary ductal dilatation is present. The gallbladder is unremarkable with no evidence of radiopaque gallstones, gallbladder wall thickening, or obvious pericholecystic inflammatory changes. PANCREAS: Atrophic changes. Otherwise unremarkable. SPLEEN: Unremarkable. ADRENAL GLANDS: Unremarkable. KIDNEYS AND URETERS: The kidneys are normal in size, shape, and attenuation. No hydronephrosis, hydroureter, or calculi seen. No perinephric stranding. BLADDER: Unremarkable. GASTROINTESTINAL TRACT: Postsurgical changes to the small bowel. Small large bowel is otherwise normal. Appendix not seen. No ascites. ABDOMINAL WALL: Umbilical and ventral hernias containing fat. LYMPH NODES: There is abnormal low-attenuation soft tissue seen in the small bowel mesentery surrounding the SMA and SMV. This does not appear appreciably changed from previous exams. No other adenopathy/evidence of peritoneal disease. VASCULAR: Unremarkable. PELVIC VISCERA: Unremarkable. OSSEOUS STRUCTURES: Degenerative changes of the spine. CT/CT abdomen pelvis w IV con IMPRESSION: Postsurgical changes to the small bowel. Stable low-attenuation soft tissue in the small bowel mesentery surrounding the SMA and SMV.. Fleischner guidelines were followed.
[2023-06-07] MEDS: iohexoL 350 MG/ML 100 ML INFUS..BTL IV (14:10)
== END 2023-06-07 13:29 | disposition home or self-care (01) ==
LOC: HO.CT 13:28
PROVIDERS: PCP Internal Medicine; Visit Provider Internal Medicine
DX: D3A.8 Other benign 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 tumors (principal)
CPT/HCPCS: 74177; Q9967

== ENCOUNTER 2023-06-15 13:55 | Outpatient (AMB) | payer MEDICARE, MEDICAID, SELFPAY ==
--- NOTE | 2023-06-15 14:20 | AM.OFFVISNUR ---
Intake Intake Visit Reasons: ekg Intake Note: Pt here for f/up EKG. H/O afib. Feels good. No complaints. Banking Teacher Required: No Accompanied by: Self / Same As Patient Allergies Chocolate Allergy (Mild, Verified 03/15/23 11:17) Rash environmental allergies Allergy (Mild, Verified 03/15/23 11:17) Itchy Eyes erythromycin base [Erythromycin Base] Adverse Reaction (Intermediate, Verified 03/15/23 11:17) GI UPSET ibuprofen [From Motrin] Adverse Reaction (Intermediate, Verified 03/15/23 11:17) Gastrointestinal Upset, increases pain Followed by:: Dr. Avelar Nursing Note EKG completed, EKG auto-reading shows sinus bradycardia at [address] Avelar's desk for review and signature. Office Procedures EKG 00854-[id number], Complete Coding Level of Care Code Est Pt Level 1 (72313) Diagnoses CPT Codes EKG - CPT: 42906-Dedddazjgwpazsufs, Complete ([id number]) Time Spent (min) 15 Comment EKG, Medication Reconciliation, Documentation, Education
== END 2023-06-15 14:38 | disposition home or self-care (01) ==
PROVIDERS: PCP Internal Medicine; Referring Provider Internal Medicine; Visit Provider Internal Medicine Cardiovascular Disease
DX: R00.1 Bradycardia, unspecified (principal)
CPT/HCPCS: 93010

== ENCOUNTER → 2023-06-15 13:55 | Outpatient (BNVA) | payer MEDICARE, MEDICAID, SELFPAY | PROVIDERS: PCP Internal Medicine; Referring Provider Internal Medicine; Visit Provider Internal Medicine Cardiovascular Disease | DX: R00.1 Bradycardia, unspecified (principal) | CPT/HCPCS: 93005 ==

== ENCOUNTER 2023-09-13 12:54 | Outpatient (AMB) | payer MEDICARE, MEDICAID, SELFPAY ==
--- NOTE | 2023-09-13 13:11 | A.OFFPC_ITS ---
Vital Signs 09/13/23 13:13 Height 4 ft 10 in Weight 128 lb BMI 26.7 BP 112/66 Blood Pressure Location Rt brachial Position Sitting Pulse 88 Pulse Source Pulse Oximeter Pulse Oximetry (%) 99 Oxygen Delivery Method Room Air Intake Visit Reasons: 6m follow up Accompanied by: staff Crystal Allergies Chocolate Allergy (Mild, Verified 09/13/23 13:13) Rash environmental allergies Allergy (Mild, Verified 09/13/23 13:13) Itchy Eyes erythromycin base [Erythromycin Base] Adverse Reaction (Intermediate, Verified 09/13/23 13:13) GI UPSET ibuprofen [From Motrin] Adverse Reaction (Intermediate, Verified 09/13/23 13:13) Gastrointestinal Upset, increases pain Medication List - Last Reconciled 09/13/23 by Patti Crabtree MD albuterol sulfate 90 mcg/actuation 2 puffs inhalation Q4-6H PRN apixaban (Eliquis) 5 mg PO BID 90 days cholecalciferol (vitamin D3) 1,000 units PO BEDTIME dicyclomine 20 mg PO TID PRN 30 days docusate sodium (Colace) 200 mg (2 x 100 mg) PO BEDTIME PRN 30 days dronedarone (Multaq) 400 mg PO BID 90 days ferrous sulfate 325 mg PO BID loperamide 2 mg PO Q6H PRN loratadine 10 mg PO BEDTIME meclizine 25 mg PO DAILY PRN 90 days methylcellulose (laxative) (Citrucel) 500 mg PO TID montelukast 10 mg PO BEDTIME omeprazole 20 mg PO DAILY oxybutynin chloride ER 10 mg PO BEDTIME simvastatin 20 mg PO BEDTIME Tobacco use date assessed: 09/13/23 Dental Screening Dental Screen Date: 09/13/23 Did you have a dental visit in the last 12 months?: Yes Did you have a dental problem in the last 6 months where you did not have access to dental care?: Yes Was dental information given to patient?: Patient has dentist HPI 6m follow up HPI Details Patient is 63-year-old female came in today for her regular follow-up visit. Patient is in her usual state of health Labs done this month reviewed with the patient, she is anemic however hemoglobin is stable Following are the providers she is seeing She has a 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, for that she is seeing Oncology [facility], [place]astroenterology, [facility] [place] Mendoza Neurology for chronic dizziness and orthostatic hypotension Dr. Avelar cardiology. For paroxysmal atrial fibrillation, today she is in a regular rhythm Patient have orthostatic hypotension treated by Cardiology for now she is instructed to add more salt to her diet Her allergies are stable she is taking singular. Patient have overactive bladder which is also stable with oxybutynin 10 mg once a day Lipid disorder continue simvastatin 20 mg once a day. Flu vaccine was given today Follow-up 4-6 months [facility] Medical History History of COVID-19 COVID-19 vaccine administered Constipation Afib Overactive bladder Environmental allergies Neuroendocrine neoplasm of gastrointestinal tract Lipid disorder Colon polyp Gastric polyp Anemia Vitamin D deficiency Hyperlipemia Diabetes Arthritis IBS (irritable bowel syndrome) GERD (gastroesophageal reflux disease) Asthma Surgical History Hx of resection of small bowel H/O exploratory laparotomy (09/20/22) History of colonoscopy History of esophagogastroduodenoscopy Family History Father Afib Pneumonia Brother Afib Heart disease Brother Heart disease Mother Unknown family medical history Social History Household Members: None Housing: Apartment Housing Other:: mental health association [facility] Are you a primary patient care associate to a significant other at home: No Do you presently have 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 or 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 (cleaning person, 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) Alcohol intake: never Patient Tobacco Use Status: Never used Tobacco e-Cigarette/Vaping Use: Never Used Second Hand Smoke Exposure: No Advance Directives Date on File: 12/01/21 service: No Current occupational status: disabled Cognitive needs: No Hearing needs: No Vision needs: Yes Questionnaire PHQ-9 Over the last 2 weeks, how often have you been bothered by any of the following problems? 1. Little interest or pleasure in doing things: not at all 2. Feeling down, depressed, or hopeless: not at all 3. Trouble falling or staying asleep, or sleeping too much: not at all 4. Feeling tired or having little energy: not at all 5. Poor appetite or overeating: not at all 6. Feeling bad about yourself - or that you are a failure or have let yourself or your family down: not at all 7. Trouble concentrating on things, such as reading the newspaper or watching television: not at all 8. Moving or speaking so slowly that other people could have noticed. Or the opposite - being so fidgety or restless that you have been moving around a lot more than usual: not at all 9. Thoughts that you would be better off or of hurting yourself in some way: not at all Total score: 0 Depression Screening Interpretation: Negative Depression Screening Done: Yes 73885 - PHQ-9 Billing: Yes Source: Developed by Drs. Teodoro Young, Glenna Jimenez, Ayo Ramesh and colleagues, with an educational manuel from [employer]. Thrive Questionnaire Date Thrive assessed: 09/13/23 I am a: Patient What is your living situation today?: I have a steady place to live Within the past 12 months, did the food you bought not last and you didn't have the money to get more?: Never true Within the past 12 months, did you worry whether your food would run out before you got money to buy more?: Never true Do you have trouble paying for medicines?: No Do you have trouble getting transportation to medical appointments?: No Do you have trouble paying your heating and electricity bill?: No Do you have trouble taking care of your child, family member or friend?: No Do you have trouble with day-to-day activities such as bathing, preparing meals, shopping, managing finances, etc.?: No Are you currently unemployed and looking for a job?: No Are you interested in more education?: No Please select the resources that you would like help with: None Currently or been in a relationship where the following occur: no concerns reported AUDIT C Alcohol Use Questionnaire (AUDIT-C) 1. How often do you have a drink containing alcohol?: Never Total Score: 0 LYLE-7 AMB Questionnaire LYLE-7 Date LYLE - 7 assessed: 09/13/23 Feeling nervous, anxious, or on edge: 0 = Not at all Not being able to stop or control worryin = Not at all Worrying too much about different things: 0 = Not at all Trouble relaxin = Not at all Being so restless that it is hard to sit still: 0 = Not at all Becoming easily annoyed or irritable: 0 = Not at all Feeling afraid as if something awful might happen: 0 = Not at all Total LYLE-7 score (0-4 normal; 5-9 mild; 10-14 moderate; 15-21 severe): 0 Source: Developed by Drs. Teodoro Young, Glenna Jimenez, Ayo Ramesh and colleagues, with an educational manuel from [employer]. LYLE-7 Assessment Billing LYLE-7 Assessment Tool: LYLE-7 Assessment 24147 Review of Systems Const Denies chills and Denies fever(s) ENT Denies epistaxis and Denies nasal discharge Card Denies chest pain Resp Denies chest congestion, Denies cough and Denies hemoptysis GI Denies diarrhea and Denies nausea Skin/Breast Denies rash Neuro Reports no additional complaints Psych Reports no additional complaints Endo Reports no additional complaints Physical exam (Primary Care) Vital Signs: Last Vital Signs Pulse 88 09/13/23 13:13 BP 112/66 09/13/23 13:13 Pulse Ox 99 09/13/23 13:13 Oxygen Delivery Method Room Air 09/13/23 13:13 BMI result Body Mass Index 26.7 Tobacco/Smoking Status: Tobacco use Status Tobacco use date assessed 09/13/23 09/13/23 13:15 Patient Tobacco Use Status Never used Tobacco 09/13/23 13:12 e-Cigarette/Vaping Use Never Used 09/13/23 13:12 PHQ-9: PHQ-9 Score PHQ-9: Total score 0 09/13/23 13:54 Depression Screening Interpretation: Negative Thrive Assessment: Date of Thrive Assessment Date Thrive assessed 09/13/23 09/13/23 13:19 Currently or been in a relationship where the following occur: no concerns reported Const General: cooperative, comfortable and no acute distress Orientation/consciousness: patient oriented x3 HENMT Head: Yes normocephalic Eyes General: appearance normal, both eyes and all related structures Neck Neck: Yes supple Resp Effort & Inspection: normal respiratory effort, no cough and no stridor Cardio Rhythm: regular rhythm Heart sounds: S1 normal heart sound present and S2 normal heart sound present Skin General skin exam: turgor normal Neuro General: patient oriented x3, tone normal and moves all extremities Extrem Right lower extremity: no edema Left lower extremity: no edema Office Procedures Flu Questionnaire Does the patient have a severe egg allergy?: No Does the patient have severe life threatening allergies?: No Does the patient have a fever or illness today?: No Has the patient ever had Guillain-Dover Syndrome?: No Has the patient ever had any past reaction to a flu shot?: No Immunizations flu vacc [id number] 6mos up(PF) 60 mcg(15 mcgx4)/0.5 mL IM syringe Performing Provider: Patti Crabtree MD Performing Location: [facility] [place] [facility] Administered by: Kayleigh Toribio CMA on 09/13/23 13:54 Dose Route Admin Location Dispensed Lot Number Expiration Date NDC Forensic Science Examiner 0.5 mL IM Left Deltoid 0.5 mL [id number] 04/28/24 [id number] Mis Descuentos VIS Given Date VIS Provided VIS Publication Date 09/13/23 Single Vaccine 21 Eligibility Eligibility Date Funding Source Not [facility] Eligible 09/13/23 Private Assessment and Plan Assessment & Plan (1) Overactive bladder: Code(s): N32.81 - Overactive bladder (2) Environmental allergies: Code(s): Z91.09 - Other allergy status, other than to drugs and biological substances (3) Chronic vertigo: Code(s): R42 - Dizziness and giddiness (4) Orthostatic hypotension: Code(s): I95.1 - Orthostatic hypotension (5) Lipid disorder: Code(s): E78.9 - Disorder of lipoprotein metabolism, unspecified (6) Paroxysmal atrial fibrillation: Code(s): I48.0 - Paroxysmal atrial fibrillation (7) Metastatic carcinoid tumor: Comment: -sees Onc next week-she is expecting to have labs Discuss colonoscopy previously however-wants to confirm Code(s): C7B.00 - Secondary carcinoid tumors, unspecified site (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 Patient is in her usual state of health Labs done this month reviewed with the patient, she is anemic however hemoglobin is stable Following are the providers she is seeing She has a 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, for that she is seeing Oncology [facility], [place]astroenterology, [facility] [place] Mendoza Neurology for chronic dizziness and orthostatic hypotension Dr. Avelar cardiology. For paroxysmal atrial fibrillation, today she is in a regular rhythm Patient have orthostatic hypotension treated by Cardiology for now she is instructed to add more salt to her diet Her allergies are stable she is taking singular. Patient have overactive bladder which is also stable with oxybutynin 10 mg once a day Lipid disorder continue simvastatin 20 mg once a day. 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
[2023-09-13 13:13] VITALS: BP 112/66; PULSE 88; O2SAT 99; BMI 26.7
== END 2023-09-13 13:59 | disposition home or self-care (01) ==
PROVIDERS: Visit Provider Internal Medicine
DX: I48.0 Paroxysmal atrial fibrillation (principal); C7B.00 Secondary carcinoid tumors, unspecified site; N32.81 Overactive bladder; Z91.09 Other allergy status, other than to drugs and biological substances; Z23 Encounter for immunization; R42 Dizziness and giddiness; I95.1 Orthostatic hypotension; E78.9 Disorder of lipoprotein metabolism, unspecified; Q96.9 Turner's syndrome, unspecified
CPT/HCPCS: 90471; 90686; 99214

== ENCOUNTER → 2023-09-14 14:06 | Outpatient (BNVA) | payer MEDICARE, MEDICAID, SELFPAY | PROVIDERS: PCP Internal Medicine; Visit Provider Internal Medicine Cardiovascular Disease ==

== ENCOUNTER 2023-12-14 13:45 | Outpatient (AMB) | payer MEDICARE, MEDICAID, SELFPAY ==
--- NOTE | 2023-12-14 13:46 | MHC.OFFVIS ---
Intake Vital Signs 12/14/23 13:48 Height 4 ft 10 in Weight 130 lb 1.164 oz BMI 27.2 BP 120/76 Blood Pressure Location Lt brachial Position Sitting Pulse 78 Intake Visit Reasons: 1 yr f/up w/ ekg Intake Note: 1 year follow-up with ekg felling out Mine Promotor Required: No Allergies Chocolate Allergy (Mild, Verified 10/18/23 13:44) Rash environmental allergies Allergy (Mild, Verified 10/18/23 13:44) Itchy Eyes erythromycin base [Erythromycin Base] Adverse Reaction (Intermediate, Verified 10/18/23 13:44) GI UPSET ibuprofen [From Motrin] Adverse Reaction (Intermediate, Verified 10/18/23 13:44) Gastrointestinal Upset, increases pain Medication List - Last Reconciled 12/14/23 by Chapo Avelar MD albuterol sulfate 90 mcg/actuation 2 puffs inhalation Q4-6H PRN apixaban (Eliquis) 5 mg PO BID 90 days cholecalciferol (vitamin D3) 1,000 units PO BEDTIME dicyclomine 20 mg PO TID PRN 30 days docusate sodium (Colace) 200 mg (2 x 100 mg) PO BEDTIME PRN 30 days dronedarone (Multaq) 400 mg PO BID 90 days ferrous sulfate 325 mg PO BID loperamide 2 mg PO Q6H PRN loratadine 10 mg PO BEDTIME meclizine 25 mg PO DAILY PRN 90 days melatonin 5 mg PO .qhs PRN 30 days methylcellulose (laxative) (Citrucel) 500 mg PO TID montelukast 10 mg PO BEDTIME omeprazole 20 mg PO DAILY oxybutynin chloride ER 10 mg PO BEDTIME simvastatin 20 mg PO BEDTIME HPI HPI Comments History of Present Illness Details Jack comes for follow-up. She has had some issues with vertigo recently but also has issues with imbalance and muscle weakness. He has not had any falls related to it. She has not had any episodes of prolonged palpitation irregular heartbeat. Has done well with current antiarrhythmic drug therapy and current blood thinners. She is denying any symptoms of heart failure. Denies any bleeding issues or neurologic events. Denies any exertional chest pain. [facility] Medical History History of COVID-19 COVID-19 vaccine administered Constipation Afib Overactive bladder Environmental allergies Neuroendocrine neoplasm of gastrointestinal tract Lipid disorder Colon polyp Gastric polyp Anemia Vitamin D deficiency Hyperlipemia Diabetes Arthritis IBS (irritable bowel syndrome) GERD (gastroesophageal reflux disease) Asthma Surgical History Hx of resection of small bowel H/O exploratory laparotomy (09/20/22) History of colonoscopy History of esophagogastroduodenoscopy Family History Father Afib Pneumonia Brother Afib Heart disease Brother Heart disease Mother Unknown family medical history Social History Household Members: None Housing: Apartment Housing Other:: mental health association [facility] Are you a primary youth career specialist to a significant other at home: No Do you presently have 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 or 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 (cleaning person, 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) Alcohol intake: never Patient Tobacco Use Status: Never used Tobacco e-Cigarette/Vaping Use: Never Used Second Hand Smoke Exposure: No Advance Directives Date on File: 12/01/21 service: No Current occupational status: disabled Cognitive needs: No Hearing needs: No Vision needs: Yes Review of Systems Const Denies chills, Denies fatigue, Denies fever(s), Denies frequent falls, Denies weakness, Denies weight gain and Denies weight loss ENT Denies dizziness Card Denies chest pain, Denies leg edema, Denies lightheadedness, Denies palpitations, Denies dyspnea, Denies dyspnea on exertion, Denies orthopnea and Denies other (loss of consciousness) Resp Denies cough, Denies dyspnea and Denies dyspnea on exertion GI Denies hematochezia and Denies change in stool character Musc Denies abnormal gait, Denies muscle weakness, Denies numbness, Denies radiating pain into limb and Denies tingling Neuro Denies abnormal gait, Denies dizziness, Denies frequent falls, Denies numbness, Denies tingling and Denies weakness Endo Denies fatigue and Denies palpitations Physical Exam Vital Signs: Last Vital Signs Pulse 78 12/14/23 13:48 BP 120/76 12/14/23 13:48 BMI result Body Mass Index 27.2 Const General: cooperative, comfortable, alert and awake Nutritional Appearance: average body habitus Orientation/consciousness: patient oriented x3 Limitations: no limitations Neck Neck: Yes trachea midline and Yes no JVD Resp Effort & Inspection: normal respiratory effort Auscultation: clear to auscultation bilaterally Cardio Jugular venous distension: no JVD Palpation: normal PMI Rate: regular rate Rhythm: regular rhythm Heart sounds: S1 normal heart sound present and S2 normal heart sound present GI Inspection: Yes normal to inspection Skin General skin exam: no rashes or lesions noted Neuro General: patient oriented x3 and no focal motor deficits Extrem General: Yes no clubbing, cyanosis or edema Office Procedures EKG Details: EKG shows normal sinus rhythm with first-degree AV block at 78 beats per minute 09002-[id number], Complete Assessment & Plan Assessment & Plan (1) Paroxysmal atrial fibrillation: Code(s): I48.0 - Paroxysmal atrial fibrillation Plan: Paroxysmal atrial fibrillation has remained suppressed on current antiarrhythmic drug therapy with Multaq. She is done extremely well with that therapy with improvement in her symptoms as well as avoidance of hospitalization. Management of atrial fibrillation was discussed in details. Continue Multaq therapy. EKGs to be done every 3 months. Continue full oral anticoagulation, currently on Eliquis 5 mg b.i.d.. At least semi annual renal function test should be pursued. (2) Low blood pressure: Code(s): I95.9 - Hypotension, unspecified Plan: Prior history of low blood pressure which has remained control with increase fluid intake. Advised to continue to increase fluid intake and liberalize his salt intake. Avoidance of diuretic therapy was discussed. Will follow up in the clinic in 1 year's time, sooner p.r.n.. Thank you for allowing me to partake in the care Coding Level of Care Code Est Pt Level 4 (87598) Diagnoses Paroxysmal atrial fibrillation I48.0 Low blood pressure I95.9 CPT Codes EKG - CPT: 19612-Otahdythxykwroxqm, Complete ([id number])
[2023-12-14 13:48] VITALS: BP 120/76; PULSE 78; BMI 27.2
== END 2023-12-14 14:27 | disposition home or self-care (01) ==
PROVIDERS: Visit Provider Internal Medicine Cardiovascular Disease
DX: I48.0 Paroxysmal atrial fibrillation (principal); I95.9 Hypotension, unspecified
CPT/HCPCS: 93010; 99214

== ENCOUNTER → 2023-12-14 13:45 | Outpatient (BNVA) | payer MEDICARE, MEDICAID, SELFPAY | PROVIDERS: Visit Provider Internal Medicine Cardiovascular Disease | DX: I48.0 Paroxysmal atrial fibrillation (principal); I95.9 Hypotension, unspecified | CPT/HCPCS: 93005; 99212 ==

== ENCOUNTER 2024-01-17 17:53 | Emergency (ER) | payer MEDICARE, MEDICAID, SELFPAY ==
--- NOTE | ~2024-01-17 | CT_ITS ---
EXAMINATION: CT head/brain wo IV con, CT cervical spine wo IV con INDICATION INFORMATION: Reason for Exam dizziness, fall +AC COMPARISON: CT head without contrast 04/08/2020 TECHNIQUE: Separate noncontrast CT examinations of the head and cervical spine were performed. Coronal and sagittal images were created for each examination at the technologist workstation. This CT examination was performed using dose optimization techniques as appropriate, variously including the following: *Automated exposure control *Adjustment of mA and/or kV according to patient size (this includes techniques or standardized protocols for targeted exams where dose is matched to indication/reason for exam; i.e. extremities or head) *Use of iterative reconstruction technique DLP: 975.87 mGy-cm FINDINGS: Head: No acute osseous or soft tissue abnormality. Hyperostosis frontalis interna. The mastoid air cells and visualized portions of the paranasal sinuses are well aerated. There is no evidence of acute intracranial hemorrhage or territorial infarction. No abnormal mass effect or midline shift is seen. [place] to white matter differentiation is well preserved. No extra-axial fluid collections are identified. No hydrocephalus. No significant volume loss. Patchy periventricular and deep white matter hypoattenuation is consistent with mild small vessel ischemic changes. Cervical spine: There is no evidence of acute cervical spine fracture. Vertebral bodies remain normal in height. Sagittal alignment is maintained. There is offset of the lateral masses of C1 and C2 related to head rotation/positioning. Moderate multilevel cervical spondylosis. No pre- or paravertebral soft tissue abnormality is identified. There is consolidation involving the right greater than left lung apices which appears somewhat masslike on the right. The thyroid gland is atrophic. CT/CT cervical spine wo IV con IMPRESSION: 1. No acute intracranial abnormality. 2. No cervical spine fracture or traumatic malalignment. 3. Consolidation involving the right greater than left lung apices which appears somewhat masslike on the right. While this most likely represents pulmonary scarring/fibrosis, lung mass is not excluded. Correlate with prior imaging if available and consider dedicated CT of the chest.
--- NOTE | ~2024-01-17 | CT_ITS ---
EXAMINATION: CT CHEST WITH IV CONTRAST CT ABDOMEN AND PELVIS WITH IV CONTRAST CLINICAL INFORMATION: Abdominal pain. Questionable mass. History of carcinoid tumor. COMPARISON: Abdomen-pelvis CT from 06/07/2023. CXR from 08/26/2021 and 01/18/2024. TECHNIQUE: Multidetector CT imaging examination of the chest, abdomen and pelvis was performed with intravenous administration of 85 mL Omnipaque 350. Axial images are displayed at 0.625 mm and 5 mm slice thickness. Coronal and sagittal reformatted images were generated at the technologist's workstation and submitted for review. This CT examination was performed using dose optimization techniques as appropriate, variously including the following: *Automated exposure control *Adjustment of mA and/or kV according to patient size (this includes techniques or standardized protocols for targeted exams where dose is matched to indication/reason for exam; i.e. extremities or head) *Use of iterative reconstruction technique DLP: 884 mGy-cm FINDINGS: CHEST - LUNGS AND PLEURA: Trachea and central airways are widely patent and normal in caliber. Chronic pleural-parenchymal opacity of scarring at lung apices (right more prominent than left). This is not significantly changed compared to prior chest radiographs. 0.2 cm calcified granuloma in the right upper lobe. Also, punctate granuloma is present in the superior segment of the right lower lobe. A solid 0.45 cm noncalcified left lower lobe nodule is in contact with the major fissure and adjacent lateral pleura. This is stable compared to 09/18/2022, which suggests that it is likely a benign nodule. No new lung nodule, mass or pleural effusion. CARDIOVASCULAR: The heart size is normal. No pericardial effusion. Pulmonary arteries and thoracic aorta are normal in caliber. MEDIASTINUM/LOWER NECK: No evidence of mediastinal mass. The esophagus has normal wall thickness. Thyroid gland is atrophied. LYMPHATICS: No pathologic sized axillary, hilar or mediastinal lymph nodes. CHEST WALL/BONES OF THORAX: Multilevel degenerative arthropathy of the visualized spine and hyperkyphosis of the thoracic spine. No acute or suspicious osseous abnormality within the thorax. ABDOMEN AND PELVIS - HEPATOBILIARY: Liver has normal size and contour. No acute hepatic abnormality. No liver mass or intrahepatic ductal dilatation. Gallbladder is well distended and has normal wall thickness. There are no radiopaque stones within the gallbladder lumen. No pericholecystic fluid or inflammatory changes within the pericholecystic fat. PANCREAS: Diffusely atrophied and otherwise unremarkable. SPLEEN: Normal. ADRENAL GLANDS: Normal. KIDNEYS AND URETERS: Kidneys have lobulated contour and enhance symmetrically. No suspicious renal lesion. No nephrolithiasis, hydronephrosis or perinephric edema. The ureters are unremarkable. BOWEL AND PERITONEUM: There is a very small sliding-type hiatal hernia. No dilated loops of bowel. No evidence of focal bowel wall thickening, mesenteric fat stranding or free fluid. Status post prior bowel surgery with intact enterocolonic anastomosis in the right abdomen. No pneumoperitoneum. Moderate amount fecal material is present in the sigmoid colon and rectum. There is no thickening of the rectal wall or inflammatory change in the perirectal/perianal region. ABDOMINAL WALL: There is diastases of rectus abdominis muscles. The two adjacent fat-containing ventral abdominal wall hernias are not significantly changed compared to 06/07/2023. VESSELS: Mild atherosclerosis of the abdominal aorta without aneurysm. In this patient with history of carcinoid tumor, there is chronic circumferential soft tissue thickening around the distal superior mesenteric artery (and its branches) and this has a stable appearance compared to 06/07/2023. LYMPH NODES: No retroperitoneal, iliac or inguinal lymphadenopathy. Again noted is the stable soft tissue thickening around the distal superior mesenteric artery and slightly patchy appearance of the soft tissue in the adjacent mesentery but this remains unchanged. BLADDER AND PELVIC VISCERA: Urinary bladder is normal. No uterine or adnexal mass. No pelvic free fluid. MUSCULOSKELETAL: There is multilevel osteophyte formation of the spine and facet arthropathy in the lower lumbar spine. There is chronic grade 1 anterolisthesis at L5-S1. Pelvic bones and proximal femurs are intact. The findings of partially visualized fat stranding and foci of gas in subcutaneous tissue of the left lateral gluteal area likely from recent injections. CT/CT abdomen pelvis w IV con IMPRESSION: * No acute imaging abnormalities in the chest, abdomen or pelvis. * Old calcified and noncalcified pulmonary nodules are detected. No new lung nodule, mass or pleural effusion. * In this patient with history of carcinoid tumor, there is chronic stable abnormal soft tissue thickening around the distal SMA and its branches. No acute abnormalities within the mesentery. No bowel obstruction. * There are chronic fat-containing ventral abdominal wall hernias.
--- NOTE | ~2024-01-17 | XR_ITS ---
EXAMINATION: XR ABDOMEN KUB CLINICAL INDICATION: Constipation and abdominal pain COMPARISON: CT abdomen pelvis 06/07/2023, KUB 09/24/2022 TECHNIQUE: AP view of the abdomen. FINDINGS: The bowel gas pattern is normal with no evidence of ileus or obstruction. Moderate stool is present in the rectum. No unusual soft tissue calcifications are noted. Marked degenerative changes are present in the spine. Mild degenerative changes are present in both hips as well as the SI joints. The lung bases appear normal. XR/XR KUB IMPRESSION: No evidence of bowel obstruction. Moderate stool in the rectum.
--- NOTE | ~2024-01-17 | XR_ITS ---
EXAMINATION: XR CHEST CLINICAL INFORMATION: Abnormal CT COMPARISON: 08/20/2021. TECHNIQUE: Frontal view of the chest was obtained. FINDINGS: The cardiomediastinal silhouette is stable. Biapical pleural thickening is again seen greater on the right grossly similar to previous. The lungs are otherwise clear. There are no significant pleural effusions. The bony structures and soft tissues are unremarkable. XR/XR chest 1V IMPRESSION: No acute cardiopulmonary process. Biapical pleural thickening greater on the right grossly similar to previous.
[2024-01-17 18:15] VITALS: BP 158/98; PULSE 75; O2SAT 100
[2024-01-17 18:48] VITALS: BP 100/57; PULSE 68; RESP 18; TEMP 36.6; O2SAT 98; BMI 27.0
--- NOTE | 2024-01-17 18:48 | ED_ITS ---
HPI - General Adult General Chief complaint: Abdominal Pain Stated complaint: FALL, ABD PAIN, -LOC,-HEADSTRIKE Time Seen by Provider: 01/17/24 18:07 Source: patient Mode of arrival: EMS History of Present Illness HPI narrative: 63-year-old female who arrives via EMS after reportedly having an episode of abdominal discomfort with associated lightheadedness while walking to the bathroom and she states that she passed out in the hallway and woke up on the floor. Patient reports that she was unable to get herself up off of the ground but was able to reach her cell phone and call 911. Patient is on Eliquis for known atrial fibrillation and does suffer from vertigo at baseline. Patient denies fever, chills, nausea, vomiting and states she has been eating and drinking normally and reports her last bowel movement was on Monday. Related Data Home Medications Medication Instructions Recorded Confirmed loperamide 2 mg capsule 2 mg PO Q6H PRN Diarrhea 08/11/20 01/10/24 albuterol sulfate 90 mcg/actuation 2 puff inhalation Q4-6H PRN 09/18/22 01/10/24 aerosol inhaler Shortness Of Breath Or Wheezing Previous Rx's Medication Instructions Recorded dicyclomine 20 mg tablet 20 mg PO TID PRN abdominal pain 30 07/07/22 days #60 tabs docusate sodium 100 mg capsule 200 mg (2 x 100 mg) PO BEDTIME PRN 07/14/22 (Colace) constipation 30 days #60 caps loratadine 10 mg tablet 10 mg PO BEDTIME #90 tabs 01/16/23 apixaban 5 mg tablet (Eliquis) 5 mg PO BID 90 days #180 tabs 02/03/23 ferrous sulfate 325 mg (65 mg 325 mg PO BID #60 tabs 05/29/23 iron) tablet dronedarone 400 mg tablet (Multaq) 400 mg PO BID 90 days #180 tabs 06/27/23 omeprazole 20 mg capsule,delayed 20 mg PO DAILY #90 caps 08/28/23 release simvastatin 20 mg tablet 20 mg PO BEDTIME #90 tabs 08/28/23 cholecalciferol (vitamin D3) 25 1,000 unit PO BEDTIME #90 caps 11/06/23 mcg (1,000 unit) capsule melatonin 5 mg capsule 5 mg PO .qhs PRN To sleep 30 days 11/06/23 #90 caps montelukast 10 mg tablet 10 mg PO BEDTIME #90 tabs 11/27/23 meclizine 25 mg tablet 25 mg PO DAILY PRN motion sickness 12/10/23 90 days #90 tabs methylcellulose (laxative) 500 mg 500 mg PO TID #90 tabs 01/15/24 tablet (Citrucel) oxybutynin chloride 10 mg 10 mg PO BEDTIME #90 tabs 01/17/24 tablet,extended release 24 hr docusate sodium 100 mg capsule 100 mg PO BID constipation #60 caps 01/18/24 (Colace) Allergies Allergy/AdvReac Type Severity Reaction Status Date / Time Chocolate Allergy Mild Rash Verified 01/17/24 18:53 environmental allergies Allergy Mild Itchy Eyes Verified 01/17/24 18:53 erythromycin base AdvReac Intermediate GI UPSET Verified 01/17/24 18:53 [Erythromycin Base] ibuprofen [From Motrin] AdvReac Intermediate Gastrointestinal Verified 01/17/24 18:53 Upset, increases pain Review of Systems 2 Review of Systems: Pertinent positives and negatives as stated in HPI [facility] Past Medical History Source: nursing notes reviewed Medical History History of COVID-19 COVID-19 vaccine administered Constipation Afib Overactive bladder Environmental allergies Neuroendocrine neoplasm of gastrointestinal tract Lipid disorder Colon polyp Gastric polyp Anemia Vitamin D deficiency Hyperlipemia Diabetes Arthritis IBS (irritable bowel syndrome) GERD (gastroesophageal reflux disease) Asthma Surgical History Hx of resection of small bowel H/O exploratory laparotomy (09/20/22) History of colonoscopy History of esophagogastroduodenoscopy Family History Family History Father Afib Pneumonia Brother Afib Heart disease Brother Heart disease Mother Unknown family medical history Social History Social History Household Members: None Housing: Apartment Housing Other:: [facility] Are you a primary transition of care specialist to a significant other at home: No Do you presently have 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 or 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 (cleaning person, 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) Alcohol intake: never Patient Tobacco Use Status: Never used Tobacco Smoked in Last 30 Days: No e-Cigarette/Vaping Use: Never Used Second Hand Smoke Exposure: No Use of substances other than those prescribed or required for medical reasons: No Advance Directives: Yes Advance Directives on File: Yes Advance Directives Date on File: 12/01/21 service: No Current occupational status: disabled Cognitive needs: No Hearing needs: No Vision needs: Yes Physical Exam ED Vital Signs: Vital Signs - 24 hr 01/17/24 18:48 01/18/24 01:05 01/18/24 03:45 Temperature 98 F 98.2 F 98.2 F Pulse Rate 68 68 58 Respiratory Rate 18 16 12 Blood Pressure 100/57 L 122/62 109/53 L Pulse Oximetry 98 100 98 Oxygen Delivery Method Room Air Room Air Room Air BMI result Body Mass Index 27.0 VITAL SIGNS: Reviewed. GENERAL: Well developed, well nourished, in no acute distress. HEAD: Normocephalic/atraumatic EYES: PERRLA, EOMI EARS: Ext canals without abnormality NOSE: Nares patent bilateral OROPHARYNX: no oral lesions noted, posterior pharynx clear NECK: Supple, no adenopathy LUNGS: Normal breath sounds. No adventitious sounds or accessory muscle use. SpO2<100> CARDIOVASCULAR: Regular rate and rhythm without noted murmurs, no JVD or lower extremity edema. ABDOMEN: Soft, non-tender, non-distended with bowel sounds. PELVIS: Stable, nontender MUSCULOSKELETAL: No tenderness, deformities, or effusions noted on gross inspection. EXTREMITIES: No cyanosis, clubbing or edema. SKIN: Inspection of the skin reveals no rashes NEUROLOGIC: Alert and oriented x 4. Strength and sensation to light touch were grossly intact x 4. Course Course Course Narrative: This is an RME: Additional HPI, ROS, PE not included below will be deferred to primary provider. This is a 14-sspv-bij-female, with a hx of 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 of GI tract in remission x 5 years, afib on eliquis, anemia, arthritis, constipation, diabetes, GERD, HLD, IBS, who presents to the ER with complaints of abdominal pain. Patient states that she was having abdominal pain and tried to get herself to the bathroom, felt dizzy, and ?passed out in the hallway?. Unsure if she lost consciousness, the abdominal pain and blurry vision has since resolved. She is on Eliquis, denies hitting her head. Baseline vertigo but states that the dizziness was different. She has a history of abdominal surgeries for cancer and history of bowel obstructions. Abdomen is soft, with tenderness palpation the periumbilical region. Vital signs within normal limits, patient nontoxic appearing Plan: Labs, EKG, CT head and neck, KUB, further ER evaluation needed Reevaluation(s) Reevaluation #1: negative CT scans for trauma, up and walking feels much better tells me she had sharp lower gas pain felt she had to have BM then felt weak and dizzy like she might pass out. back to baseline, suffers from chronic constipation Medications Administered Discontinued Medications Generic Name Dose Route Start Last Admin Trade Name Freq PRN Reason Stop Dose Admin Iohexol 85 ml 01/18/24 05:39 01/18/24 05:39 Iohexol 350 Mg/Ml 100 Ml Infus..Btl IV 01/18/24 05:40 85 ml ONCE ONE Administration Medical Decision Making Medical Decision Making MDM Narrative: 63-year-old female with history and clinical presentation, DDX: Will rule out infection/anemia/electrolyte abnormalities or arrhythmia for patient's syncopal episode, there are no focal findings. I reviewed all investigations and patient's hematologic indices demonstrate a stable normocytic anemia without thrombocytopenia there is a slight leukocytosis but patient is not febrile. Coagulation indices demonstrate chronic anticoagulation use. Chemistry indices are negative for ELY/electrolyte or liver enzyme derangements, I sensitivity troponin is undetectable without any acute changes on EKG. KUB does not demonstrate obstructive pattern and there is retained stool in the rectum, head CT is negative for intracranial hemorrhage or mass effect and cervical spine CT does not demonstrate any fracture or subluxation. Chest x-ray demonstrates by apical scarring that is similar to prior and otherwise no evidence of infiltrate or venous congestion. Patient has reported this intermittent abdominal discomfort previously and does have a history of prior small-bowel obstruction, however on history and current clinical exam as well as KUB there is no evidence of bowel obstruction at this time. In addition, there is no evidence of occult infection/anemia or electrolyte/arrhythmia etiology for patient's syncopal/near syncopal episode. Signed out to Dr Menchaca: - UA Differential Diagnosis Differential Diagnoses: The differential diagnosis associated with the presentation includes Please see the discussion above Admission/Observation Consideration of admission/observation: Escalation of care including admission/observation considered Please see the discussion above Lab Data MDM Lab Attestation statement: I reviewed the patient's lab results. Please see the discussion above 01/17/24 19:44 01/17/24 19:44 Labs: Lab Results 01/17/24 01/18/24 01/18/24 Range/Units 19:44 01:36 02:02 WBC 11.4 H (4.8-10.8) X10*3/uL RBC 3.73 L (4.20-5.50) X10*6/uL Hgb 11.9 L (12.0-16.0) g/dl Hct 35.8 L (37.0-47.0) % MCV 96.0 (80.0-98.0) fL MCH 31.9 (27.0-33.0) pg MCHC 33.2 (31.0-35.0) g/dl RDW 13.3 (11.0-16.0) % Plt Count 234 (160-400) X10*3/uL MPV 10.1 (9.4-12.3) fL Immature Gran % (Auto) 0.3 (0.0-0.4) % Neut % (Auto) 83.3 H (45-73) % Lymph % (Auto) 9.6 L (20-40) % [place] % (Auto) 6.3 (2-11) % Eos % (Auto) 0.2 (0-4) % Baso % (Auto) 0.3 (0-2) % Lymph # (Auto) 1.1 L (1.2-4.9) X10*3/uL [place] # (Auto) 0.7 (0.1-1.2) X10*3/uL Eos # (Auto) 0.0 (0.0-0.4) X10*3/uL Baso # (Auto) 0.0 (0.0-0.2) X10*3/uL Abs Immat Gran (auto) 0.03 (0.00-0.03) X10*3/uL Absolute Neuts (auto) 9.5 H (2.0-8.3) x10*3/uL Absolute Nucleated RBC 0.000 (0.0-0.012) X10*3/uL Nucleated RBC % (auto) 0.0 (0.0-0.2) /100WBC PT 21.3 H (11.1-13.3) SEC INR 1.8 H (0.9-1.1) APTT 32.4 (26.0-36.8) SEC Sodium 144 (135-145) mmol/L Potassium 4.9 (3.3-5.1) mmol/L Chloride 108 (96-108) mmol/L Carbon Dioxide 27 (22-29) mmol/L Anion Gap 14 (12-20) BUN 24 H (9-16) mg/dL Creatinine 1.00 (0.5-1.4) mg/dL Estim Creat Clear Calc 43.0 Estimated GFR 56 Random Glucose 121 H (60-115) mg/dL Calcium 9.2 D (8.4-10.2) mg/dL Magnesium 1.9 (1.6-2.6) mg/dL Total Bilirubin 0.5 (0.0-1.0) mg/dL Direct Bilirubin 0.2 (0.0-0.5) mg/dL AST 17 (5-31) U/L ALT 11 (0-31) U/L Alkaline Phosphatase 71 (39-117) U/L Troponin I High Sens < 2.7 < 2.7 (<3.5-17.0) ng/L Total Protein 7.1 (6.5-8.0) g/dL Albumin 4.1 (3.5-5.0) g/dL Lipase 8 (8-78) U/L Urine Color Yellow Urine Appearance Clear Urine pH 5.0 (5.0-9.0) Ur Specific [place] 1.020 (1.005-1.025) Urine Protein Negative (Neg-Trace) mg/dL Urine Glucose (UA) Negative (Negative) mg/dL Urine Ketones 15 (Negative) mg/dL Urine Blood Negative (Negative) Urine Nitrite Negative (Negative) Ur Leukocyte Esterase Negative (Negative) Independent Interpretation I performed an independent interpretation of an: EKG Interpretation: Normal sinus rhythm, HR-61, no STEMI, NC/QRS/QTC is within normal limits. Radiology Impression Discussion of test interpretation with radiology: I have reviewed the radiologist's reading. Radiologist Impression: Please see the discussion above External Record Review External record reviewed: Outpatient record, Prior outpatient labs and Prior outpatient radiology Chronic Conditions Paroxysmal atrial fibrillation, chronic anticoagulation Critical Care Time Critical Care Time Critical Care Time: Yes Total Critical Care Time: 30 Attestation: I personally attest to this time spent taking care of the patient. Discharge Plan Discharge Clinical Impression: Near syncope Constipation Qualifiers: Constipation type: unspecified constipation type Qualified Code(s): K59.00 - Constipation, unspecified Patient Disposition: Home, Self-Care Instructions: Constipation (ED), High Fiber Diet (ED), Near Syncope (ED) Additional Instructions: 1. Resume all home medications as prescribed. 2. Follow-up with primary care doctor in the next 1-2 days. Return to the ER for any worsening symptoms. follow up with your outpatient doctor return for any worsening symptoms or concerns no acute findings on your CT scans - all old scarring noted Prescriptions: New docusate sodium [Colace] 100 mg capsule 100 mg PO BID Qty: 60 1RF No Action dicyclomine 20 mg tablet 20 mg PO TID PRN (Reason: abdominal pain) 30 Days Qty: 60 0RF Hold Instructions: Resume on 09/21/22. loratadine 10 mg tablet 10 mg PO BEDTIME Qty: 90 3RF Hold Instructions: Resume on 09/21/22. Eliquis 5 mg tablet 5 mg PO BID 90 Days Qty: 180 3RF Hold Instructions: Resume on 11/19/22. Resume Eliquis on 11/19/22 ferrous sulfate 325 mg (65 mg iron) Tablet 325 mg PO BID Qty: 60 4RF Multaq 400 mg tablet 400 mg PO BID 90 Days Qty: 180 3RF Hold Instructions: Resume on 09/21/22. omeprazole 20 mg capsule,delayed release(DR/EC) 20 mg PO DAILY Qty: 90 2RF Hold Instructions: Resume on 09/21/22. simvastatin 20 mg tablet 20 mg PO BEDTIME Qty: 90 1RF Hold Instructions: Resume on 09/21/22. melatonin 5 mg capsule 5 mg PO .qhs PRN (Reason: To sleep) 30 Days Qty: 90 3RF cholecalciferol (vitamin D3) 25 mcg (1,000 unit) capsule 1,000 unit PO BEDTIME Qty: 90 3RF Hold Instructions: Resume on 09/21/22. montelukast 10 mg tablet 10 mg PO BEDTIME Qty: 90 1RF Hold Instructions: Resume on 09/21/22. meclizine 25 mg tablet 25 mg PO DAILY PRN (Reason: motion sickness) 90 Days Qty: 90 3RF Hold Instructions: Resume on 09/21/22. Citrucel 500 mg tablet 500 mg PO TID Qty: 90 5RF oxybutynin chloride 10 mg tablet extended release 24hr 10 mg PO BEDTIME Qty: 90 3RF Hold Instructions: Resume on 09/21/22. loperamide 2 mg Capsule 2 mg PO Q6H PRN (Reason: Diarrhea) Hold Instructions: Resume on 09/21/22. albuterol sulfate 90 mcg/actuation Hfa Aerosol Inhaler 2 puff INHALATION Q4-6H PRN (Reason: Shortness Of Breath Or Wheezing) docusate sodium [Colace] 100 mg capsule 200 mg PO BEDTIME PRN (Reason: constipation) 30 Days Qty: 60 3RF Hold Instructions: Resume on 09/21/22. Rx Instructions: as need for constipation- stop if diarrhea
--- NOTE | 2024-01-17 18:51 | ECG_ITS ---
Test Reason : DIZZINESS Blood Pressure : / mmHG Vent. Rate : 061 BPM Atrial Rate : 061 BPM P-R Int : 192 ms QRS Dur : 066 ms QT Int : 430 ms P-R-T Axes : 082 006 055 degrees QTc Int : 432 ms Normal sinus rhythm Normal ECG When compared with ECG of 17-SEP-2022 22:05, Premature ventricular complexes are no longer Present Referred By: Joaquina Peoples Electronically Signed By:BREONNA CAMPBELL
[2024-01-17 19:50] LABS: Basophils Percent Auto 0.3 % (0-2); Eosinophils Percent Auto 0.2 % (0-4); Hematocrit 35.8 % (37.0-47.0); Hemoglobin 11.9 g/dl (12.0-16.0); Imm Gran Abs Auto 0.03 X10*3/uL (0.00-0.03); Imm Gran Pct Auto 0.3 % (0.0-0.4); Lymphocytes Absolute Auto 1.1 X10*3/uL (1.2-4.9); Lymphocytes Percent Auto 9.6 % (20-40); MANUAL DIFF FLAG NO; Mean Corpuscular HGB Conc 33.2 g/dl (31.0-35.0); Mean Corpuscular Hemoglobin 31.9 pg (27.0-33.0); Mean Platelet Volume 10.1 fL (9.4-12.3); Monocytes Absolute Auto 0.7 X10*3/uL (0.1-1.2); Monocytes Percent Auto 6.3 % (2-11); Neutrophils Absolute Auto 9.5 x10*3/uL (2.0-8.3); Neutrophils Percent Auto 83.3 % (45-73); Platelet Count 234 X10*3/uL (160-400); Red Blood Count 3.73 X10*6/uL (4.20-5.50); Red Cell Distribution Width 13.3 % (11.0-16.0); White Blood Count 11.4 X10*3/uL (4.8-10.8)
[2024-01-17 19:55] LABS: INTERNATIONAL NORM RATIO 1.8 (0.9-1.1); Prothrombin Time 21.3 SEC (11.1-13.3)
[2024-01-17 19:58] LABS: Partial Thromboplastin Time 32.4 SEC (26.0-36.8)
[2024-01-17 20:03] LABS: Alanine Aminotransferase 11 U/L (0-31); Albumin Level 4.1 g/dL (3.5-5.0); Alkaline Phosphatase 71 U/L (39-117); Anion Gap 14 (12-20); Aspartate Amino Transferase 17 U/L (5-31); Bilirubin Direct 0.2 mg/dL (0.0-0.5); Bilirubin Total 0.5 mg/dL (0.0-1.0); Blood Urea Nitrogen 24 mg/dL (9-16); Calcium 9.2 mg/dL (8.4-10.2); Carbon Dioxide 27 mmol/L (22-29); Chloride 108 mmol/L (96-108); Estimated Glomerular Filt Rate 56; Glucose Random 121 mg/dL (60-115); Lipase 8 U/L (8-78); Magnesium 1.9 mg/dL (1.6-2.6); Potassium 4.9 mmol/L (3.3-5.1); Sodium 144 mmol/L (135-145); Total Protein 7.1 g/dL (6.5-8.0)
[2024-01-17 20:11] LABS: Troponin-I High Sensitivity < 2.7 ng/L (<3.5-17.0)
[2024-01-18 01:05] VITALS: BP 122/62; PULSE 68; RESP 16; TEMP 36.8; O2SAT 100
[2024-01-18 02:03] LABS: Troponin-I High Sensitivity < 2.7 ng/L (<3.5-17.0)
[2024-01-18 02:11] LABS: Appearance Urine Clear; Color Urine Yellow; Glucose Urine UA Negative (Negative); Leukocyte Esterase Urine Negative (Negative); Nitrite Urine Negative (Negative); Urine Blood Negative (Negative); Urine Ketones 15 mg/dL (Negative); Urine Protein Negative (Neg-Trace)
[2024-01-18 03:45] VITALS: BP 109/53; PULSE 58; RESP 12; TEMP 36.8; O2SAT 98
[2024-01-18] MEDS: iohexoL 350 MG/ML 100 ML INFUS..BTL 85 ML IV (05:39)
--- NOTE | 2024-01-18 07:08 | ED.ABDPAIN ---
HPI - Abdominal Pain General Chief Complaint: Abdominal Pain Stated Complaint: FALL, ABD PAIN, -LOC,-HEADSTRIKE Time Seen by Provider: 01/17/24 18:07 Source: patient Mode of arrival: EMS History of Present Illness HPI narrative: Patient is a 63-year-old female was trying to get herself to the bathroom while she was walking she felt lightheaded. Passed out in the hallway. Not 100% sure she actually had loss of consciousness. Patient had dizziness which subsequently resolved. Has a history of being on Eliquis question if she hit her head. Patient feels weak. Had previous history of abdominal surgery for cancer. History of bowel obstructions in the past. She currently denies any nausea vomiting diarrhea. Can move her hips well. Related Data Home Medications Medication Instructions Recorded Confirmed loperamide 2 mg capsule 2 mg PO Q6H PRN Diarrhea 08/11/20 01/10/24 albuterol sulfate 90 mcg/actuation 2 puff inhalation Q4-6H PRN 09/18/22 01/10/24 aerosol inhaler Shortness Of Breath Or Wheezing Previous Rx's Medication Instructions Recorded dicyclomine 20 mg tablet 20 mg PO TID PRN abdominal pain 30 07/07/22 days #60 tabs docusate sodium 100 mg capsule 200 mg (2 x 100 mg) PO BEDTIME PRN 07/14/22 (Colace) constipation 30 days #60 caps loratadine 10 mg tablet 10 mg PO BEDTIME #90 tabs 01/16/23 apixaban 5 mg tablet (Eliquis) 5 mg PO BID 90 days #180 tabs 02/03/23 ferrous sulfate 325 mg (65 mg 325 mg PO BID #60 tabs 05/29/23 iron) tablet dronedarone 400 mg tablet (Multaq) 400 mg PO BID 90 days #180 tabs 06/27/23 omeprazole 20 mg capsule,delayed 20 mg PO DAILY #90 caps 08/28/23 release simvastatin 20 mg tablet 20 mg PO BEDTIME #90 tabs 08/28/23 cholecalciferol (vitamin D3) 25 1,000 unit PO BEDTIME #90 caps 11/06/23 mcg (1,000 unit) capsule melatonin 5 mg capsule 5 mg PO .qhs PRN To sleep 30 days 11/06/23 #90 caps montelukast 10 mg tablet 10 mg PO BEDTIME #90 tabs 11/27/23 meclizine 25 mg tablet 25 mg PO DAILY PRN motion sickness 12/10/23 90 days #90 tabs methylcellulose (laxative) 500 mg 500 mg PO TID #90 tabs 01/15/24 tablet (Citrucel) oxybutynin chloride 10 mg 10 mg PO BEDTIME #90 tabs 01/17/24 tablet,extended release 24 hr Allergies Allergy/AdvReac Type Severity Reaction Status Date / Time Chocolate Allergy Mild Rash Verified 01/17/24 18:53 environmental allergies Allergy Mild Itchy Eyes Verified 01/17/24 18:53 erythromycin base AdvReac Intermediate GI UPSET Verified 01/17/24 18:53 [Erythromycin Base] ibuprofen [From Motrin] AdvReac Intermediate Gastrointestinal Verified 01/17/24 18:53 Upset, increases pain Review of Systems Review of Systems Positive abdominal pain Yes all other systems are reviewed and are negative PMFSH Past Medical History Attestation statement: The following information was validated with the patient. Medical History History of COVID-19 COVID-19 vaccine administered Constipation Afib Overactive bladder Environmental allergies Neuroendocrine neoplasm of gastrointestinal tract Lipid disorder Colon polyp Gastric polyp Anemia Vitamin D deficiency Hyperlipemia Diabetes Arthritis IBS (irritable bowel syndrome) GERD (gastroesophageal reflux disease) Asthma Surgical History Hx of resection of small bowel H/O exploratory laparotomy (09/20/22) History of colonoscopy History of esophagogastroduodenoscopy Family History Family History Father Afib Pneumonia Brother Afib Heart disease Brother Heart disease Mother Unknown family medical history Social History Social History Household Members: None Housing: Apartment Housing Other:: mental health association [facility] Are you a primary care program resident to a significant other at home: No Do you presently have 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 or 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 (cleaning person, 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) Alcohol intake: never Patient Tobacco Use Status: Never used Tobacco Smoked in Last 30 Days: No e-Cigarette/Vaping Use: Never Used Second Hand Smoke Exposure: No Use of substances other than those prescribed or required for medical reasons: No Advance Directives: Yes Advance Directives on File: Yes Advance Directives Date on File: 12/01/21 service: No Current occupational status: disabled Cognitive needs: No Hearing needs: No Vision needs: Yes Physical Exam ED Vital Signs: Vital Signs - 24 hr 01/17/24 18:48 01/18/24 01:05 01/18/24 03:45 Temperature 98 F 98.2 F 98.2 F Pulse Rate 68 68 58 Respiratory Rate 18 16 12 Blood Pressure 100/57 L 122/62 109/53 L Pulse Oximetry 98 100 98 Oxygen Delivery Method Room Air Room Air Room Air BMI result Body Mass Index 27.0 Appearance: Alert. Oriented X3. No acute distress. Eyes: Pupils equal, round and reactive to light. ENT: Pharynx normal. C-spine immobilized. There has no step-off. There is no point tenderness elicited on palpation Neck: Normal inspection. Neck supple. No lymph nodes noted. No crepitus CVS: Normal heart rate and rhythm. Pulses normal. Normal S1 and S2 Respiratory: No respiratory distress. Breath sounds normal. No Wheezing. No rales Abdomen: Soft and nontender. No rigidity. No distention. good BS x4 Skin: Skin warm and dry. Normal skin color. Normal skin turgor. Extremities: No lower extremity edema. Neurovascular intact to all extremities. No Lacerations. No Rash Neuro: Oriented X 3. No motor deficit. No sensory deficit. Moving all extermities. No slurred speech Medical Decision Making Medical Decision Making MDM Narrative: Patient is fair appearing not acute distress. Status post fall. [place] lightheaded. CT scan of the head and C-spine were negative for any acute evidence of bleeding. No acute evidence of fracture no malalignment. CT scan of the C-spine did show a question fibrosis in the lungs. A CT of the chest CTA of the abdomen pelvis was ordered for her abdominal pain and nonspecific finding in the CT scan of the C-spine. Patient's electrolytes are normal. Troponin is negative less than 2.7 urine showed no signs of infection my interpretation of her EKG showed a sinus rhythm heart rate is 60 [place] QRS QTC normal there is no acute ST segment elevation. KUB of the abdomen was grossly negative for any acute evidence of obstruction. Although limited. It did show signs of constipation. Differential Diagnosis Differential Diagnoses: The differential diagnosis associated with the presentation includes Obstruction, syncope, dehydration Admission/Observation Consideration of admission/observation: Escalation of care including admission/observation considered Lab Data MDM Lab Attestation statement: I reviewed the patient's lab results. 01/17/24 19:44 01/17/24 19:44 Labs: Lab Results 01/17/24 01/18/24 01/18/24 Range/Units 19:44 01:36 02:02 WBC 11.4 H (4.8-10.8) X10*3/uL RBC 3.73 L (4.20-5.50) X10*6/uL Hgb 11.9 L (12.0-16.0) g/dl Hct 35.8 L (37.0-47.0) % MCV 96.0 (80.0-98.0) fL MCH 31.9 (27.0-33.0) pg MCHC 33.2 (31.0-35.0) g/dl RDW 13.3 (11.0-16.0) % Plt Count 234 (160-400) X10*3/uL MPV 10.1 (9.4-12.3) fL Immature Gran % (Auto) 0.3 (0.0-0.4) % Neut % (Auto) 83.3 H (45-73) % Lymph % (Auto) 9.6 L (20-40) % [place] % (Auto) 6.3 (2-11) % Eos % (Auto) 0.2 (0-4) % Baso % (Auto) 0.3 (0-2) % Lymph # (Auto) 1.1 L (1.2-4.9) X10*3/uL [place] # (Auto) 0.7 (0.1-1.2) X10*3/uL Eos # (Auto) 0.0 (0.0-0.4) X10*3/uL Baso # (Auto) 0.0 (0.0-0.2) X10*3/uL Abs Immat Gran (auto) 0.03 (0.00-0.03) X10*3/uL Absolute Neuts (auto) 9.5 H (2.0-8.3) x10*3/uL Absolute Nucleated RBC 0.000 (0.0-0.012) X10*3/uL Nucleated RBC % (auto) 0.0 (0.0-0.2) /100WBC PT 21.3 H (11.1-13.3) SEC INR 1.8 H (0.9-1.1) APTT 32.4 (26.0-36.8) SEC Sodium 144 (135-145) mmol/L Potassium 4.9 (3.3-5.1) mmol/L Chloride 108 (96-108) mmol/L Carbon Dioxide 27 (22-29) mmol/L Anion Gap 14 (12-20) BUN 24 H (9-16) mg/dL Creatinine 1.00 (0.5-1.4) mg/dL Estim Creat Clear Calc 43.0 Estimated GFR 56 Random Glucose 121 H (60-115) mg/dL Calcium 9.2 D (8.4-10.2) mg/dL Magnesium 1.9 (1.6-2.6) mg/dL Total Bilirubin 0.5 (0.0-1.0) mg/dL Direct Bilirubin 0.2 (0.0-0.5) mg/dL AST 17 (5-31) U/L ALT 11 (0-31) U/L Alkaline Phosphatase 71 (39-117) U/L Troponin I High Sens < 2.7 < 2.7 (<3.5-17.0) ng/L Total Protein 7.1 (6.5-8.0) g/dL Albumin 4.1 (3.5-5.0) g/dL Lipase 8 (8-78) U/L Urine Color Yellow Urine Appearance Clear Urine pH 5.0 (5.0-9.0) Ur Specific [place] 1.020 (1.005-1.025) Urine Protein Negative (Neg-Trace) mg/dL Urine Glucose (UA) Negative (Negative) mg/dL Urine Ketones 15 (Negative) mg/dL Urine Blood Negative (Negative) Urine Nitrite Negative (Negative) Ur Leukocyte Esterase Negative (Negative) Independent Interpretation I performed an independent interpretation of an: EKG (Sinus heart rate is 60 [place] QRS QTC normal there is no acute ST segment elevation) and CT Scan (CT scan of the head was grossly negative for any acute evidence of bleeding. CT scan of the C-spine showed no acute fracture) Radiology Impression Discussion of test interpretation with radiology: I have reviewed the radiologist's reading. Independent Historian Clinical information obtained from an independent historian. History obtained from or confirmed by: EMS External Record Review Imaging from earlier in the day was reviewed Medications Administered Discontinued Medications Generic Name Dose Route Start Last Admin Trade Name Freq PRN Reason Stop Dose Admin Iohexol 85 ml 01/18/24 05:39 01/18/24 05:39 Iohexol 350 Mg/Ml 100 Ml Infus..Btl IV 01/18/24 05:40 85 ml ONCE ONE Administration Discharge Plan Discharge Clinical Impression: Near syncope, Constipation Patient Disposition: Still a Patient Instructions: Constipation (ED), High Fiber Diet (ED), Near Syncope (ED) Additional Instructions: 1. Resume all home medications as prescribed. 2. Follow-up with primary care doctor in the next 1-2 days. Return to the ER for any worsening symptoms. Prescriptions: No Action dicyclomine 20 mg tablet 20 mg PO TID PRN (Reason: abdominal pain) 30 Days Qty: 60 0RF Hold Instructions: Resume on 09/21/22. loratadine 10 mg tablet 10 mg PO BEDTIME Qty: 90 3RF Hold Instructions: Resume on 09/21/22. Eliquis 5 mg tablet 5 mg PO BID 90 Days Qty: 180 3RF Hold Instructions: Resume on 11/19/22. Resume Eliquis on 11/19/22 ferrous sulfate 325 mg (65 mg iron) Tablet 325 mg PO BID Qty: 60 4RF Multaq 400 mg tablet 400 mg PO BID 90 Days Qty: 180 3RF Hold Instructions: Resume on 09/21/22. omeprazole 20 mg capsule,delayed release(DR/EC) 20 mg PO DAILY Qty: 90 2RF Hold Instructions: Resume on 09/21/22. simvastatin 20 mg tablet 20 mg PO BEDTIME Qty: 90 1RF Hold Instructions: Resume on 09/21/22. melatonin 5 mg capsule 5 mg PO .qhs PRN (Reason: To sleep) 30 Days Qty: 90 3RF cholecalciferol (vitamin D3) 25 mcg (1,000 unit) capsule 1,000 unit PO BEDTIME Qty: 90 3RF Hold Instructions: Resume on 09/21/22. montelukast 10 mg tablet 10 mg PO BEDTIME Qty: 90 1RF Hold Instructions: Resume on 09/21/22. meclizine 25 mg tablet 25 mg PO DAILY PRN (Reason: motion sickness) 90 Days Qty: 90 3RF Hold Instructions: Resume on 09/21/22. Citrucel 500 mg tablet 500 mg PO TID Qty: 90 5RF oxybutynin chloride 10 mg tablet extended release 24hr 10 mg PO BEDTIME Qty: 90 3RF Hold Instructions: Resume on 09/21/22. loperamide 2 mg Capsule 2 mg PO Q6H PRN (Reason: Diarrhea) Hold Instructions: Resume on 09/21/22. albuterol sulfate 90 mcg/actuation Hfa Aerosol Inhaler 2 puff INHALATION Q4-6H PRN (Reason: Shortness Of Breath Or Wheezing) docusate sodium [Colace] 100 mg capsule 200 mg PO BEDTIME PRN (Reason: constipation) 30 Days Qty: 60 3RF Hold Instructions: Resume on 09/21/22. Rx Instructions: as need for constipation- stop if diarrhea
[2024-01-18 08:31] VITALS: BP 125/62; PULSE 67; RESP 16; TEMP 36.8; O2SAT 99
[2024-01-18 08:38] VITALS: BP 125/62; PULSE 67; RESP 16; TEMP 36.8; O2SAT 99
== END 2024-01-18 08:51 | disposition home or self-care (01) ==
PROVIDERS: Physician Assistant Medical; Student in an Organized Health Care Education/Training Program; Emergency Provider Emergency Medicine Emergency Medical Services; PCP Internal Medicine
DX: S09.90XA Unspecified injury of head, initial encounter (principal); R55 Syncope and collapse; K59.00 Constipation, unspecified; R07.89 Other chest pain; M54.2 Cervicalgia; R51.9 Headache, unspecified; R42 Dizziness and giddiness; R53.1 Weakness; W01.10XA Fall on same level from slipping, tripping and stumbling with subsequent striking against unspecified object, initial encounter; Y93.9 Activity, unspecified; Y92.9 Unspecified place or not applicable; Y99.8 Other external cause status; Z79.899 Other long term (current) drug therapy
CPT/HCPCS: 36415; 70450; 71045; 71260; 72125; 74018; 74177; 80048; 80076; 81003; 83690; 83735; 84484; 85025; 85610; 85730; 93005; 99285; Q9967

== ENCOUNTER → 2024-01-17 18:51 | Outpatient (BNV) | payer MEDICARE, MEDICAID, SELFPAY | PROVIDERS: Emergency Provider Emergency Medicine Emergency Medical Services; PCP Internal Medicine; Visit Provider Internal Medicine | DX: R42 Dizziness and giddiness (principal) | CPT/HCPCS: 93010 ==

== ENCOUNTER 2024-01-24 10:33 | Outpatient (AMB) | payer MEDICARE, MEDICAID, SELFPAY ==
--- NOTE | 2024-01-24 10:38 | A.OFFPC_ITS ---
Vital Signs 01/24/24 10:39 Height 4 ft 10 in Weight 129 lb 4 oz BMI 27.0 BP 122/62 Blood Pressure Location Rt brachial Position Sitting Pulse 73 Pulse Source Pulse Oximeter Pulse Oximetry (%) 100 Oxygen Delivery Method Room Air Intake Visit Reasons: HDF ~ Post hospital discharge FU Allergies Chocolate Allergy (Mild, Verified 01/24/24 10:39) Rash environmental allergies Allergy (Mild, Verified 01/24/24 10:39) Itchy Eyes erythromycin base [Erythromycin Base] Adverse Reaction (Intermediate, Verified 01/24/24 10:39) GI UPSET ibuprofen [From Motrin] Adverse Reaction (Intermediate, Verified 01/24/24 10:39) Gastrointestinal Upset, increases pain Medication List - Last Reconciled 01/24/24 by Patti Crabtree MD albuterol sulfate 90 mcg/actuation 2 puffs inhalation Q4-6H PRN apixaban (Eliquis) 5 mg PO BID 90 days cholecalciferol (vitamin D3) 1,000 units PO BEDTIME dicyclomine 20 mg PO TID PRN 30 days docusate sodium (Colace) 100 mg PO BID dronedarone (Multaq) 400 mg PO BID 90 days ferrous sulfate 325 mg PO BID loratadine 10 mg PO BEDTIME meclizine 25 mg PO DAILY PRN 90 days melatonin 5 mg PO .qhs PRN 30 days methylcellulose (laxative) (Citrucel) 500 mg PO TID montelukast 10 mg PO BEDTIME omeprazole 20 mg PO DAILY oxybutynin chloride ER 10 mg PO BEDTIME simvastatin 20 mg PO BEDTIME Tobacco use date assessed: 01/24/24 Fall risk assessment: 1 Fall in past year Last assessed Fall Risk: 01/24/24 Dental Screening Dental Screen Date: 01/24/24 Did you have a dental visit in the last 12 months?: Yes Did you have a dental problem in the last 6 months where you did not have access to dental care?: No Was dental information given to patient?: Patient has dentist HPI HDF ~ Post hospital discharge FU HPI Details Patient is 63-year-old female came in today for emergency room visit follow-up from of this month Patient says that she was walking to bathroom when she got lightheaded dizzy and passed out in the hallway. She has not sure if she lost her consciousness but she was taken to emergency room for evaluation. Patient have a chronic history of vertigo. She is on Eliquis from Cardiology Patient also have a 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 gastrointestinal tumor. Which causes diarrhea as well as constipation off and on. She had a CT scan abdomen scheduled for tomorrow She had a CT scan of head and neck in emergency room which was negative for any evidence of bleeding. There was no fracture or misalignment Tropes were negative, urine showed no signs of infection, EKG showed sinus rhythm with heart rate of 60 beats per minute no acute ST findings. KUB of abdomen was grossly negative for any acute evidence of obstruction. But it showed signs of constipation After evaluation patient was discharged home Was given Dulcolax and Citrucel for constipation Patient says that she is taking the medication and still not able to move her bowel for 2 or 3 days. I have sent lactulose syrup for her she is to start taking 15 mL at night as laxative We need to hold Imodium which is listed as p.r.n. for diarrhea [facility] Medical History History of COVID-19 COVID-19 vaccine administered Constipation Afib Overactive bladder Environmental allergies Neuroendocrine neoplasm of gastrointestinal tract Lipid disorder Colon polyp Gastric polyp Anemia Vitamin D deficiency Hyperlipemia Diabetes Arthritis IBS (irritable bowel syndrome) GERD (gastroesophageal reflux disease) Asthma Surgical History Hx of resection of small bowel H/O exploratory laparotomy (09/20/22) History of colonoscopy History of esophagogastroduodenoscopy Family History Father Afib Pneumonia Brother Afib Heart disease Brother Heart disease Mother Unknown family medical history Social History Household Members: None Housing: Apartment Housing Other:: mental health association [facility] Are you a primary long term care administrator to a significant other at home: No Do you presently have 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 or 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 (cleaning person, 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) Alcohol intake: never Patient Tobacco Use Status: Never used Tobacco e-Cigarette/Vaping Use: Never Used Second Hand Smoke Exposure: No Advance Directives Date on File: 12/01/21 service: No Current occupational status: disabled Cognitive needs: No Hearing needs: No Vision needs: Yes Questionnaire Thrive Questionnaire Date Thrive assessed: 09/13/23 AUDIT C Alcohol Use Questionnaire (AUDIT-C) 1. How often do you have a drink containing alcohol?: Never 3. How often do you have six or more drinks on one occasion?: Never Total Score: 0 Score Reviewed/Action Taken: Yes LYLE-7 AMB Questionnaire LYLE-7 Date LYLE - 7 assessed: 09/13/23 Source: Developed by Drs. Teodoro Young, Glenna Jimenez, Ayo Ramesh and colleagues, with an educational manuel from [employer]. Review of Systems Const Denies chills and Denies fever(s) ENT Denies epistaxis and Denies nasal discharge Card Denies chest pain Resp Denies chest congestion, Denies cough and Denies hemoptysis GI Denies diarrhea and Denies nausea Skin/Breast Denies rash Neuro Reports no additional complaints Psych Reports no additional complaints Endo Reports no additional complaints Physical exam (Primary Care) Vital Signs: Last Vital Signs Pulse 73 01/24/24 10:39 BP 122/62 01/24/24 10:39 Pulse Ox 100 01/24/24 10:39 Oxygen Delivery Method Room Air 01/24/24 10:39 BMI result Body Mass Index 27.0 Tobacco/Smoking Status: Tobacco use Status Tobacco use date assessed 01/24/24 01/24/24 10:40 Patient Tobacco Use Status Never used Tobacco 01/24/24 10:40 e-Cigarette/Vaping Use Never Used 01/24/24 10:40 Thrive Assessment: Date of Thrive Assessment Date Thrive assessed 09/13/23 01/24/24 10:40 Const General: cooperative, comfortable and no acute distress Orientation/consciousness: patient oriented x3 HENMT Other: Mild wax in both ears Head: Yes normocephalic Eyes General: appearance normal, both eyes and all related structures Neck Neck: Yes supple Resp Effort & Inspection: normal respiratory effort, no cough and no stridor Cardio Heart sounds: S1 normal heart sound present and S2 normal heart sound present GI Other: Soft nontender bowel sounds positive Skin General skin exam: turgor normal Neuro General: patient oriented x3, tone normal and moves all extremities Extrem Right lower extremity: no edema Left lower extremity: no edema Assessment and Plan Assessment & Plan (1) Near syncope: Code(s): R55 - Syncope and collapse (2) Constipation: Code(s): K59.00 - Constipation, unspecified Qualifiers: Constipation type: unspecified constipation type Qualified Code(s): K59.00 - Constipation, unspecified (3) Paroxysmal atrial fibrillation: Code(s): I48.0 - Paroxysmal atrial fibrillation (4) Metastatic carcinoid tumor: Comment: -sees Onc next week-she is expecting to have labs Discuss colonoscopy previously however-wants to confirm Code(s): C7B.00 - Secondary carcinoid tumors, unspecified site (5) Chronic vertigo: Code(s): R42 - Dizziness and giddiness Plan Patient is 63-year-old female came in today for emergency room visit follow-up from of this month Patient says that she was walking to bathroom when she got lightheaded dizzy and passed out in the hallway. She has not sure if she lost her consciousness but she was taken to emergency room for evaluation. Patient have a chronic history of vertigo. She is on Eliquis from Cardiology Patient also have a 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 gastrointestinal tumor. Which causes diarrhea as well as constipation off and on. She had a CT scan abdomen scheduled for tomorrow She had a CT scan of head and neck in emergency room which was negative for any evidence of bleeding. There was no fracture or misalignment Tropes were negative, urine showed no signs of infection, EKG showed sinus rhythm with heart rate of 60 beats per minute no acute ST findings. KUB of abdomen was grossly negative for any acute evidence of obstruction. But it showed signs of constipation After evaluation patient was discharged home Was given Dulcolax and Citrucel for constipation Patient says that she is taking the medication and still not able to move her bowel for 2 or 3 days. I have sent lactulose syrup for her she is to start taking 15 mL at night as laxative We need to hold Imodium which is listed as p.r.n. for diarrhea Medications: New lactulose 10 grams (15 mL) PO BEDTIME 450 mL 2RF constipation 30 days Coding Level of Care Code Est Pt Level 4 (24713) Diagnoses Near syncope R55 Constipation K59.00 Constipation type: unspecified constipation type Paroxysmal atrial fibrillation I48.0 Metastatic carcinoid tumor C7B.00 Chronic vertigo R42
[2024-01-24 10:39] VITALS: BP 122/62; PULSE 73; O2SAT 100; BMI 27.0
== END 2024-01-24 11:28 | disposition home or self-care (01) ==
PROVIDERS: PCP Internal Medicine; Visit Provider Internal Medicine
DX: R55 Syncope and collapse (principal); I48.0 Paroxysmal atrial fibrillation; C7B.00 Secondary carcinoid tumors, unspecified site; K59.00 Constipation, unspecified; R42 Dizziness and giddiness
CPT/HCPCS: 99214

== ENCOUNTER 2024-01-25 08:32 | Outpatient (REF) | payer MEDICARE, MEDICAID, SELFPAY | END 2024-01-25 08:33 | disposition home or self-care (01) | LOC: HO.CT 08:32 | PROVIDERS: PCP Internal Medicine; Visit Provider Internal Medicine | DX: Z13.89 Encounter for screening for other disorder (principal) ==

== ENCOUNTER 2024-02-02 13:38 | Outpatient (REF) | payer MEDICARE, MEDICAID, SELFPAY | END 2024-02-02 13:39 | disposition home or self-care (01) | LOC: HO.MAMMO 13:38 | PROVIDERS: PCP Internal Medicine; Visit Provider Internal Medicine | DX: Z12.31 Encounter for screening mammogram for malignant neoplasm of breast (principal) | CPT/HCPCS: 77063; 77067 ==

== ENCOUNTER → 2024-02-02 14:15 | Outpatient (BNV) | payer MEDICARE, MEDICAID, SELFPAY | PROVIDERS: PCP Internal Medicine; Visit Provider Radiology Diagnostic Radiology | DX: Z12.31 Encounter for screening mammogram for malignant neoplasm of breast (principal) | CPT/HCPCS: 77063; 77067 ==

== ENCOUNTER 2024-02-16 14:23 | Outpatient (AMB) | payer MEDICARE, MEDICAID, SELFPAY ==
[2024-02-16 14:27] VITALS: BP 110/66; PULSE 72; O2SAT 99; BMI 28.0
--- NOTE | 2024-02-16 14:27 | MHC.PC.OV ---
Vital Signs 02/16/24 14:27 Height 4 ft 10 in Weight 134 lb BMI 28.0 BP 110/66 Blood Pressure Location Rt brachial Position Sitting Pulse 72 Pulse Source Pulse Oximeter Pulse Oximetry (%) 99 Oxygen Delivery Method Room Air Intake Visit Reasons: dizziness Allergies Chocolate Allergy (Mild, Verified 02/16/24 14:27) Rash environmental allergies Allergy (Mild, Verified 02/16/24 14:27) Itchy Eyes erythromycin base [Erythromycin Base] Adverse Reaction (Intermediate, Verified 02/16/24 14:27) GI UPSET ibuprofen [From Motrin] Adverse Reaction (Intermediate, Verified 02/16/24 14:27) Gastrointestinal Upset, increases pain Medication List - Last Reconciled 02/16/24 by Patti Crabtree MD albuterol sulfate 90 mcg/actuation 2 puffs inhalation Q4-6H PRN apixaban (Eliquis) 5 mg PO BID cholecalciferol (vitamin D3) 1,000 units PO BEDTIME dicyclomine 20 mg PO TID PRN 30 days docusate sodium (Colace) 100 mg PO BID dronedarone (Multaq) 400 mg PO BID 90 days ferrous sulfate 325 mg PO BID lactulose 10 grams (15 mL) PO BEDTIME 30 days loratadine 10 mg PO BEDTIME meclizine 25 mg PO BID PRN 90 days melatonin 5 mg PO .qhs PRN 30 days methylcellulose (laxative) (Citrucel) 500 mg PO TID montelukast 10 mg PO BEDTIME omeprazole 20 mg PO DAILY oxybutynin chloride ER 10 mg PO BEDTIME simvastatin 20 mg PO BEDTIME Tobacco use date assessed: 01/24/24 Fall risk assessment: No Falls in past year Last assessed Fall Risk: 02/16/24 Dental Screening Dental Screen Date: 01/24/24 HPI dizziness HPI Details Patient's dizziness is getting worse, she a chronic vertigo, but that was managed with meclizine 25 mg Recently she started taking it 2 times a day and that is not enough Patient does have allergies as well she is on loratadine, with the arrival of spring allergies are worse I am increasing the meclizine to 3 times a day Patient is established with a neurologist Dr. Mendoza, I would recommend to give the office a call and book a follow-up appointment We will also start a vestibular physical therapy Patient is also a diet-controlled diabetic but has been off medication for a while Hemoglobin A1c done today is 5.8 Staff member wants a letter stating that she is no longer a diabetic Explained to them that once diabetic all visit diabetic but she does not need medication to control diabetes. [facility] Medical History History of COVID-19 COVID-19 vaccine administered Constipation Afib Overactive bladder Environmental allergies Neuroendocrine neoplasm of gastrointestinal tract Lipid disorder Colon polyp Gastric polyp Anemia Vitamin D deficiency Hyperlipemia Diabetes Arthritis IBS (irritable bowel syndrome) GERD (gastroesophageal reflux disease) Asthma Surgical History Hx of resection of small bowel H/O exploratory laparotomy (09/20/22) History of colonoscopy History of esophagogastroduodenoscopy Family History Father Afib Pneumonia Brother Afib Heart disease Brother Heart disease Mother Unknown family medical history Social History Household Members: None Housing: Apartment Housing Other:: mental health association [facility] Are you a primary manager care to a significant other at home: No Do you presently have 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 or 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 (cleaning person, 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) Alcohol intake: never Patient Tobacco Use Status: Never used Tobacco e-Cigarette/Vaping Use: Never Used Second Hand Smoke Exposure: No Advance Directives Date on File: 12/01/21 service: No Current occupational status: disabled Cognitive needs: No Hearing needs: No Vision needs: Yes Questionnaire PHQ-9 Over the last 2 weeks, how often have you been bothered by any of the following problems? 1. Little interest or pleasure in doing things: not at all 2. Feeling down, depressed, or hopeless: not at all 3. Trouble falling or staying asleep, or sleeping too much: not at all 4. Feeling tired or having little energy: not at all 5. Poor appetite or overeating: not at all 6. Feeling bad about yourself - or that you are a failure or have let yourself or your family down: not at all 7. Trouble concentrating on things, such as reading the newspaper or watching television: not at all 8. Moving or speaking so slowly that other people could have noticed. Or the opposite - being so fidgety or restless that you have been moving around a lot more than usual: not at all 9. Thoughts that you would be better off or of hurting yourself in some way: not at all Total score: 0 Depression Screening Interpretation: Negative Depression Screening Done: Yes 81394 - PHQ-9 Billing: Yes Source: Developed by Drs. Teodoro Young, Glenna Jimenez, Ayo Ramesh and colleagues, with an educational manuel from [employer]. Thrive Questionnaire Date Thrive assessed: 02/16/24 I am a: Patient What is your living situation today?: I have a steady place to live Within the past 12 months, did the food you bought not last and you didn't have the money to get more?: Never true Within the past 12 months, did you worry whether your food would run out before you got money to buy more?: Never true Do you have trouble paying for medicines?: No Do you have trouble getting transportation to medical appointments?: No Do you have trouble paying your heating and electricity bill?: No Do you have trouble taking care of your child, family member or friend?: No Do you have trouble with day-to-day activities such as bathing, preparing meals, shopping, managing finances, etc.?: No Are you currently unemployed and looking for a job?: No Are you interested in more education?: No Please select the resources that you would like help with: None Currently or been in a relationship where the following occur: no concerns reported THRIVE Score: 0 LYLE-7 AMB Questionnaire LYLE-7 Date LYLE - 7 assessed: 02/16/24 Feeling nervous, anxious, or on edge: 0 = Not at all Not being able to stop or control worryin = Not at all Worrying too much about different things: 0 = Not at all Trouble relaxin = Not at all Being so restless that it is hard to sit still: 0 = Not at all Becoming easily annoyed or irritable: 0 = Not at all Feeling afraid as if something awful might happen: 0 = Not at all Total LYLE-7 score (0-4 normal; 5-9 mild; 10-14 moderate; 15-21 severe): 0 Source: Developed by Drs. Teodoro Young, Glenna Jimenez, Ayo Ramesh and colleagues, with an educational manuel from [employer]. LYLE-7 Assessment Billing LYLE-7 Assessment Tool: LYLE-7 Assessment 13565 Review of Systems Const Denies chills and Denies fever(s) ENT Denies epistaxis Card Denies chest pain Resp Denies chest congestion, Denies cough and Denies hemoptysis GI Denies diarrhea and Denies nausea Skin/Breast Denies rash Neuro Reports no additional complaints Psych Reports no additional complaints Endo Reports no additional complaints Physical exam (Primary Care) Vital Signs: Last Vital Signs Pulse 72 02/16/24 14:27 BP 110/66 02/16/24 14:27 Pulse Ox 99 02/16/24 14:27 Oxygen Delivery Method Room Air 02/16/24 14:27 BMI result Body Mass Index 28.0 Tobacco/Smoking Status: Tobacco use Status Tobacco use date assessed 01/24/24 02/16/24 14:28 Patient Tobacco Use Status Never used Tobacco 02/16/24 14:28 e-Cigarette/Vaping Use Never Used 02/16/24 14:28 PHQ-9: PHQ-9 Score PHQ-9: Total score 0 02/16/24 14:28 Depression Screening Interpretation: Negative Thrive Assessment: Date of Thrive Assessment Date Thrive assessed 02/16/24 02/16/24 14:28 Currently or been in a relationship where the following occur: no concerns reported Const General: cooperative, comfortable and no acute distress Orientation/consciousness: patient oriented x3 HENMT Other: ears without any erythema or signs of infection bilateral Head: Yes normocephalic Eyes General: appearance normal, both eyes and all related structures Neck Neck: Yes supple Resp Effort & Inspection: normal respiratory effort, no cough and no stridor Cardio Rhythm: regular rhythm Heart sounds: S1 normal heart sound present and S2 normal heart sound present Skin General skin exam: turgor normal Neuro General: patient oriented x3, tone normal and moves all extremities Extrem Right lower extremity: no edema Left lower extremity: no edema Assessment and Plan Assessment & Plan (1) Vertigo: Code(s): R42 - Dizziness and giddiness (2) Use of cane as ambulatory aid: Code(s): Z99.89 - Dependence on other enabling machines and devices (3) Diet-controlled type 2 diabetes mellitus: Code(s): E11.9 - Type 2 diabetes mellitus without complications Plan Patient's dizziness is getting worse, she a chronic vertigo, but that was managed with meclizine 25 mg Recently she started taking it 2 times a day and that is not enough Patient does have allergies as well she is on loratadine, with the arrival of spring allergies are worse I am increasing the meclizine to 3 times a day Patient is established with a neurologist Dr. Mendoza, I would recommend to give the office a call and book a follow-up appointment We will also start a vestibular physical therapy Patient is also a diet-controlled diabetic but has been off medication for a while Hemoglobin A1c done today is 5.8 Staff member wants a letter stating that she is no longer a diabetic Explained to them that once diabetic all visit diabetic but she does not need medication to control diabetes. Orders: Orders PT Evaluation and Treatment Today R42 - Dizziness and giddiness Coding Level of Care Code Est Pt Level 3 (84400) Diagnoses Vertigo R42 Use of cane as ambulatory aid Z99.89 Diet-controlled type 2 diabetes mellitus E11.9 Additional Codes LYLE-7 Assessment Billing - LYLE-7 Assessment Tool: LYLE-7 Assessment 20067 ([id number])
== END 2024-02-16 15:12 | disposition home or self-care (01) ==
LOC: HO.HMGC 14:23
PROVIDERS: PCP Internal Medicine; Visit Provider Internal Medicine
DX: R42 Dizziness and giddiness (principal); Z99.89 Dependence on other enabling machines and devices; E11.9 Type 2 diabetes mellitus without complications
CPT/HCPCS: 83036; 99213

== ENCOUNTER → 2024-03-06 14:56 | Outpatient (BNVA) | payer MEDICARE, MEDICAID, SELFPAY | PROVIDERS: PCP Internal Medicine; Visit Provider Internal Medicine Cardiovascular Disease ==

== ENCOUNTER 2024-03-26 14:00 | Outpatient (RCR) | payer MEDICARE, MEDICAID, SELFPAY | END 2024-04-26 08:31 | disposition home or self-care (01) | LOC: HO.PT 14:00 | PROVIDERS: PCP Internal Medicine; Visit Provider Internal Medicine | DX: R42 Dizziness and giddiness (principal) | CPT/HCPCS: 97163 ==

== ENCOUNTER 2024-03-28 21:53 | Emergency (ER) | payer MEDICARE, MEDICAID, SELFPAY ==
--- NOTE | ~2024-03-28 | CT_ITS ---
EXAMINATION: CT ABDOMEN AND PELVIS WITH CONTRAST CLINICAL INFORMATION: Abdominal pain. COMPARISON: 01/18/2024 TECHNIQUE: Multidetector volumetric images were obtained from the superior aspect of the liver through the pubic symphysis following administration 85 mL of Omnipaque 350 intravenous contrast. Sagittal and coronal reformatted images were obtained on the technologist's workstation. Oral contrast: No This CT examination was performed using dose optimization techniques as appropriate, variously including the following: *Automated exposure control *Adjustment of mA and/or kV according to patient size (this includes techniques or standardized protocols for targeted exams where dose is matched to indication/reason for exam; i.e. extremities or head) *Use of iterative reconstruction technique DLP: 425 mGy-cm FINDINGS: Image quality is technically degraded by motion artifact. LUNG BASES: Small hiatal hernia. LIVER, GALLBLADDER, AND BILIARY TREE: The liver is normal in size and contour. No focal hepatic lesion or biliary ductal dilatation is present. The gallbladder is unremarkable with no evidence of radiopaque gallstones, gallbladder wall thickening, or obvious pericholecystic inflammatory changes. PANCREAS: Fatty infiltration. No ductal dilatation. SPLEEN: Not enlarged. ADRENAL GLANDS: No adrenal mass. KIDNEYS AND URETERS: The kidneys are lobulated. Homogeneous enhancement. No hydronephrosis. No perinephric stranding. BLADDER: Unremarkable. GASTROINTESTINAL TRACT: Patent enterocolonic anastomosis. No small bowel obstruction. Marked retained stool in the colon. ABDOMINAL WALL: Supraumbilical ventral hernia containing fat measures 8.0 x 4.0 cm with neck measuring 3.9 cm. There is mild inflammatory change within the hernia sac. Umbilical hernia containing fat measures 4.5 x 3.1 cm. Neck of the hernia measures 2.4 cm. LYMPH NODES: Mild soft tissue infiltration surrounding the mesenteric vasculature with narrowing of the SMA and SMV branches. Subcentimeter mesenteric lymph nodes in the right lower quadrant. The appearance is unchanged relative to 01/18/2024. VASCULAR: Normal caliber abdominal aorta. PELVIC VISCERA: Unremarkable. OSSEOUS STRUCTURES: No destructive bone lesions. CT/CT abdomen pelvis w IV con IMPRESSION: New mild inflammatory changes within the supraumbilical ventral hernia. Advise clinical correlation. Persistent soft tissue thickening in the mesentery around the branches of the SMA and SMV.
[2024-03-28 22:33] VITALS: BP 117/62; PULSE 73; RESP 16; TEMP 36.4; O2SAT 99; BMI 27.0
[2024-03-28 22:55] LABS: MANUAL DIFF FLAG NO
[2024-03-28 22:56] LABS: Basophils Percent Auto 0.4 % (0-2); Eosinophils Absolute Auto 0.1 X10*3/uL (0.0-0.4); Eosinophils Percent Auto 0.8 % (0-4); Hematocrit 33.6 % (37.0-47.0); Hemoglobin 11.1 g/dl (12.0-16.0); Imm Gran Abs Auto 0.03 X10*3/uL (0.00-0.03); Imm Gran Pct Auto 0.4 % (0.0-0.4); Lymphocytes Absolute Auto 1.7 X10*3/uL (1.2-4.9); Lymphocytes Percent Auto 22.9 % (20-40); Mean Corpuscular Hemoglobin 31.9 pg (27.0-33.0); Mean Corpuscular Volume 96.6 fL (80.0-98.0); Mean Platelet Volume 10.1 fL (9.4-12.3); Monocytes Absolute Auto 0.6 X10*3/uL (0.1-1.2); Monocytes Percent Auto 7.5 % (2-11); Neutrophils Absolute Auto 5.1 x10*3/uL (2.0-8.3); Platelet Count 227 X10*3/uL (160-400); Red Blood Count 3.48 X10*6/uL (4.20-5.50); Red Cell Distribution Width 13.4 % (11.0-16.0); White Blood Count 7.5 X10*3/uL (4.8-10.8)
[2024-03-28 23:09] LABS: Alanine Aminotransferase 9 U/L (0-31); Albumin Level 3.9 g/dL (3.5-5.0); Alkaline Phosphatase 61 U/L (39-117); Anion Gap 13 (12-20); Aspartate Amino Transferase 13 U/L (5-31); Bilirubin Total 0.2 mg/dL (0.0-1.0); Blood Urea Nitrogen 27 mg/dL (9-16); Carbon Dioxide 22 mmol/L (22-29); Chloride 112 mmol/L (96-108); Creatinine Clr Calc Pharmacy 45.2; Estimated Glomerular Filt Rate 59; Glucose Random 149 mg/dL (60-115); Lipase 15 U/L (8-78); Potassium 5.3 mmol/L (3.3-5.1); Sodium 142 mmol/L (135-145); Total Protein 6.8 g/dL (6.5-8.0)
[2024-03-29 04:33] VITALS: BP 99/60; PULSE 66; RESP 16; TEMP 36.8; O2SAT 98
[2024-03-29 05:54] VITALS: BP 114/52; PULSE 64; RESP 16; TEMP 36.4; O2SAT 97
[2024-03-29 05:57] LABS: Appearance Urine Clear; Color Urine Yellow; Glucose Urine UA Negative (Negative); Leukocyte Esterase Urine Negative (Negative); Nitrite Urine Negative (Negative); PH 5.5 (5.0-9.0); Urine Blood Negative (Negative); Urine Ketones Negative (Negative); Urine Protein Negative (Neg-Trace)
--- NOTE | 2024-03-29 07:09 | ED_ITS ---
HPI - Abdominal Pain General Chief Complaint: Abdominal Pain Stated Complaint: LOW ABD PAIN, N/D. Time Seen by Provider: 03/29/24 07:00 Source: patient and old records reviewed Mode of arrival: ambulatory Limitations: no limitations History of Present Illness ED Provider: TIERRA BAILEY narrative: 63 yo female with PMH of GERD, sampson syndrome, SBO, hypotension, carcinoind tumor, prior ex lap here with c/o having 4 loose stools around 830pm then developing nausea distention of abdomen and worried she has another SBO - similar presentation. Nausea improved now but stomach distended. MD elicited complaint: abdominal pain Pertinent past history: other (SBO) Onset (ago): day(s) (830pm last night) Pain Consistency: colicky Location: diffuse Severity: moderate Quality: aching Radiation: none Migration to: no migration Exacerbating factors: eating Relieving factors: nothing Context: history of similar episodes Associated symptoms: nausea and other (started after 4 loose BMs last night) Related Data Home Medications ?Medication ?Instructions ?Recorded ?Confirmed albuterol sulfate 90 mcg/actuation 2 puff inhalation Q4-6H PRN 09/18/22 03/06/24 aerosol inhaler Shortness Of Breath Or Wheezing Previous Rx's ?Medication ?Instructions ?Recorded dicyclomine 20 mg tablet 20 mg PO TID PRN abdominal pain 30 07/07/22 days #60 tabs ferrous sulfate 325 mg (65 mg 325 mg PO BID #60 tabs 05/29/23 iron) tablet dronedarone 400 mg tablet (Multaq) 400 mg PO BID 90 days #180 tabs 06/27/23 omeprazole 20 mg capsule,delayed 20 mg PO DAILY #90 caps 08/28/23 release cholecalciferol (vitamin D3) 25 1,000 unit PO BEDTIME #90 caps 11/06/23 mcg (1,000 unit) capsule melatonin 5 mg capsule 5 mg PO .qhs PRN To sleep 30 days 11/06/23 #90 caps montelukast 10 mg tablet 10 mg PO BEDTIME #90 tabs 11/27/23 methylcellulose (laxative) 500 mg 500 mg PO TID #90 tabs 01/15/24 tablet (Citrucel) oxybutynin chloride 10 mg 10 mg PO BEDTIME #90 tabs 01/17/24 tablet,extended release 24 hr docusate sodium 100 mg capsule 100 mg PO BID constipation #60 caps 01/18/24 (Colace) lactulose 10 gram/15 mL (15 mL) 10 g (15 mL) PO BEDTIME 01/24/24 oral solution constipation 30 days #450 mL apixaban 5 mg tablet (Eliquis) 5 mg PO BID #180 tabs 01/30/24 loratadine 10 mg tablet 10 mg PO BEDTIME #90 tabs 02/08/24 meclizine 25 mg tablet 25 mg PO BID PRN motion sickness 02/13/24 90 days #180 tabs simvastatin 20 mg tablet 20 mg PO BEDTIME #90 tabs 02/26/24 Allergies Allergy/AdvReac Type Severity Reaction Status Date / Time Chocolate Allergy Mild Rash Verified 03/28/24 22:38 environmental allergies Allergy Mild Itchy Eyes Verified 03/28/24 22:38 erythromycin base AdvReac Intermediate GI UPSET Verified 03/28/24 22:38 [Erythromycin Base] ibuprofen [From Motrin] AdvReac Intermediate Gastrointestinal Verified 03/28/24 22:38 Upset, increases pain Review of Systems Review of Systems Constitutional : No Weight loss, No Fever, No Chills ENT/Mouth : No sore throat, No Rhinorrhea Eyes: No Swelling, No Redness Cardiovascular : No Chest Pain, No SOB, NoEdema Respiratory : No Cough, No Sputum, No Wheezing Gastrointestinal : Positive Nausea, Positive Vomiting, no Diarrhea, positive abdominal Pain, No Hematochezia, No Melena Genitourinary : No Dysuria, No Urinary Frequency, No Hematuria, No Urgency Musculoskeletal : No joint pain, No Myalgias, No Joint Swelling Skin : No Skin Lesions, No rash Neuro : No Weakness, No Numbness, No Dizziness, No Headache Psych : No Anxiety/Panic, No Depression All other systems reviewed and are negative. [facility] Past Medical History Attestation statement: The following information was validated with the patient. Source: old records reviewed Medical History History of COVID-19 COVID-19 vaccine administered Constipation Afib Overactive bladder Environmental allergies Neuroendocrine neoplasm of gastrointestinal tract Lipid disorder Colon polyp Gastric polyp Anemia Vitamin D deficiency Hyperlipemia Diabetes Arthritis IBS (irritable bowel syndrome) GERD (gastroesophageal reflux disease) Asthma Surgical History Hx of resection of small bowel H/O exploratory laparotomy (09/20/22) History of colonoscopy History of esophagogastroduodenoscopy Family History Family History Father Afib Pneumonia Brother Afib Heart disease Brother Heart disease Mother Unknown family medical history Social History Social History Household Members: None Housing: Apartment Housing Other:: mental health association [facility] Are you a primary director career to a significant other at home: No Do you presently have 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 or 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 (cleaning person, 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) Alcohol intake: never Patient Tobacco Use Status: Never used Tobacco e-Cigarette/Vaping Use: Never Used Second Hand Smoke Exposure: No Use of substances other than those prescribed or required for medical reasons: No Advance Directives: Yes Advance Directives on File: Yes Advance Directives Date on File: 12/01/21 Do you have a plan to hurt others: No Plan Patient : No service: No Current occupational status: disabled Cognitive needs: No Hearing needs: No Vision needs: Yes Physical Exam ED Vital Signs: Vital Signs - 24 hr 03/28/24 22:33 03/29/24 04:33 03/29/24 05:54 Temperature 97.5 F 98.2 F 97.5 F Pulse Rate 73 66 64 Respiratory Rate 16 16 16 Blood Pressure 117/62 99/60 114/52 L Pulse Oximetry 99 98 97 Oxygen Delivery Method Room Air Room Air Room Air 03/29/24 07:22 Temperature 97.1 F Pulse Rate 67 Respiratory Rate 16 Blood Pressure 138/66 Pulse Oximetry 100 Oxygen Delivery Method Room Air BMI result Body Mass Index 27.0 Appearance: Alert. Oriented X3. No acute distress. Eyes: Pupils equal, round and reactive to light. ENT: Pharynx normal. Neck: Normal inspection. Neck supple. CVS: Normal heart rate and rhythm. Pulses normal. Respiratory: No respiratory distress. Breath sounds normal. Abdomen: sistended but still soft no rebound or guarding mild ttp Skin: Skin warm and dry. pale skin color. Normal skin turgor. Extremities: No lower extremity edema. Neuro: Oriented X 3. No motor deficit. No sensory deficit. Medical Decision Making Medical Decision Making [facility] Narrative: 63 yo female with PMH of GERD, sampson syndrome, SBO, hypotension, carcinoind tumor, prior ex lap here with c/o distention, nausea and pain after having 4 loose stools last night now no flatus and worried she has SBO at this time basic labs and CT scan ordered for SBO. Differential Diagnosis Differential Diagnoses: The differential diagnosis associated with the presentation includes constipation, SBO, enteritis Admission/Observation Consideration of admission/observation: Escalation of care including admission/observation considered no obstruction, repeat exam benign has no ttp on ventral hernia and no vomiting states she feels better and is ready go to home, no nausea will DC home with precautions Lab Data [facility] Lab Attestation statement: I reviewed the patient's lab results. 03/28/24 22:48 03/28/24 22:48 Labs: Lab Results 03/28/24 03/29/24 Range/Units 22:48 05:50 WBC 7.5 (4.8-10.8) X10*3/uL RBC 3.48 L (4.20-5.50) X10*6/uL Hgb 11.1 L (12.0-16.0) g/dl Hct 33.6 L (37.0-47.0) % MCV 96.6 (80.0-98.0) fL MCH 31.9 (27.0-33.0) pg MCHC 33.0 (31.0-35.0) g/dl RDW 13.4 (11.0-16.0) % Plt Count 227 (160-400) X10*3/uL MPV 10.1 (9.4-12.3) fL Immature Gran % (Auto) 0.4 (0.0-0.4) % Neut % (Auto) 68.0 (45-73) % Lymph % (Auto) 22.9 (20-40) % Worth % (Auto) 7.5 (2-11) % Eos % (Auto) 0.8 (0-4) % Baso % (Auto) 0.4 (0-2) % Lymph # (Auto) 1.7 (1.2-4.9) X10*3/uL [place] # (Auto) 0.6 (0.1-1.2) X10*3/uL Eos # (Auto) 0.1 (0.0-0.4) X10*3/uL Baso # (Auto) 0.0 (0.0-0.2) X10*3/uL Abs Immat Gran (auto) 0.03 (0.00-0.03) X10*3/uL Absolute Neuts (auto) 5.1 (2.0-8.3) x10*3/uL Absolute Nucleated RBC 0.000 (0.0-0.012) X10*3/uL Nucleated RBC % (auto) 0.0 (0.0-0.2) /100WBC Sodium 142 (135-145) mmol/L Potassium 5.3 H (3.3-5.1) mmol/L Chloride 112 H (96-108) mmol/L Carbon Dioxide 22 (22-29) mmol/L Anion Gap 13 (12-20) BUN 27 H (9-16) mg/dL Creatinine 0.95 (0.5-1.4) mg/dL Estim Creat Clear Calc 45.2 Estimated GFR 59 Random Glucose 149 H (60-115) mg/dL Calcium 9.0 D (8.4-10.2) mg/dL Total Bilirubin 0.2 (0.0-1.0) mg/dL AST 13 (5-31) U/L ALT 9 (0-31) U/L Alkaline Phosphatase 61 (39-117) U/L Total Protein 6.8 (6.5-8.0) g/dL Albumin 3.9 (3.5-5.0) g/dL Lipase 15 (8-78) U/L Urine Color Yellow Urine Appearance Clear Urine pH 5.5 (5.0-9.0) Ur Specific [place] 1.010 (1.005-1.025) Urine Protein Negative (Neg-Trace) mg/dL Urine Glucose (UA) Negative (Negative) mg/dL Urine Ketones Negative (Negative) mg/dL Urine Blood Negative (Negative) Urine Nitrite Negative (Negative) Ur Leukocyte Esterase Negative (Negative) Independent Interpretation I performed an independent interpretation of an: CT Scan (no SBO) Radiology Impression Discussion of test interpretation with radiology: I have reviewed the radiologist's reading. External Record Review External record reviewed: Inpatient record Medications Administered Discontinued Medications Generic Name Dose Route Start Last Admin Trade Name Freq PRN Reason Stop Dose Admin Sodium Chloride 500 mls @ 500 mls/hr 03/29/24 07:15 03/29/24 08:23 Ns IV 03/29/24 08:14 Infused .Q1H ONE Infusion Iohexol 85 ml 03/29/24 08:36 03/29/24 08:37 Iohexol 350 Mg/Ml 100 Ml Infus..Btl IV 03/29/24 08:37 85 ml ONCE ONE Administration Discharge Plan Discharge Clinical Impression: Constipation Qualifiers: Constipation type: unspecified constipation type Qualified Code(s): K59.00 - Constipation, unspecified Abdominal pain Qualifiers: Abdominal location: generalized Qualified Code(s): R10.84 - Generalized abdominal pain Patient Disposition: Home, Self-Care Instructions: Constipation (ED), Abdominal Pain (ED) Additional Instructions: return for worsening symptoms and concerns vomiting, pain, unable to have a bowel movement you have a hernia on the anterior abdomen Prescriptions: No Action dicyclomine 20 mg tablet 20 mg PO TID PRN (Reason: abdominal pain) 30 Days Qty: 60 0RF Hold Instructions: Resume on 09/21/22. ferrous sulfate 325 mg (65 mg iron) Tablet 325 mg PO BID Qty: 60 4RF Multaq 400 mg tablet 400 mg PO BID 90 Days Qty: 180 3RF Hold Instructions: Resume on 09/21/22. omeprazole 20 mg capsule,delayed release(DR/EC) 20 mg PO DAILY Qty: 90 2RF Hold Instructions: Resume on 09/21/22. melatonin 5 mg capsule 5 mg PO .qhs PRN (Reason: To sleep) 30 Days Qty: 90 3RF cholecalciferol (vitamin D3) 25 mcg (1,000 unit) capsule 1,000 unit PO BEDTIME Qty: 90 3RF Hold Instructions: Resume on 09/21/22. montelukast 10 mg tablet 10 mg PO BEDTIME Qty: 90 1RF Hold Instructions: Resume on 09/21/22. Citrucel 500 mg tablet 500 mg PO TID Qty: 90 5RF oxybutynin chloride 10 mg tablet extended release 24hr 10 mg PO BEDTIME Qty: 90 3RF Hold Instructions: Resume on 09/21/22. Eliquis 5 mg tablet 5 mg PO BID Qty: 180 3RF Hold Instructions: Resume on 11/19/22. Resume Eliquis on 11/19/22 loratadine 10 mg tablet 10 mg PO BEDTIME Qty: 90 3RF Hold Instructions: Resume on 09/21/22. meclizine 25 mg tablet 25 mg PO BID PRN (Reason: motion sickness) 90 Days Qty: 180 3RF Hold Instructions: Resume on 09/21/22. simvastatin 20 mg tablet 20 mg PO BEDTIME Qty: 90 1RF Hold Instructions: Resume on 09/21/22. albuterol sulfate 90 mcg/actuation Hfa Aerosol Inhaler 2 puff INHALATION Q4-6H PRN (Reason: Shortness Of Breath Or Wheezing) docusate sodium [Colace] 100 mg capsule 100 mg PO BID Qty: 60 1RF lactulose 10 gram/15 mL (15 mL) solution 10 g PO BEDTIME 30 Days Qty: 450 2RF Print Language: Togolese
[2024-03-29 07:22] VITALS: BP 138/66; PULSE 67; RESP 16; TEMP 36.2; O2SAT 100
--- NOTE | 2024-03-29 07:23 | PC.NURSE ---
Abd pain since yesterday. States nausea that has since resolved. No acute vomiting at this time. Abd appears distended, soft and non tender with +Bowel sounds. Skin pwd. VSS. Seen By Dr Rodarte, awaits CT scan
[2024-03-29] MEDS: 0.9 % Sodium Chloride 500 ML IV (07:35)
--- NOTE | 2024-03-29 08:23 | PC.NURSE ---
Pt to CT scan
[2024-03-29] MEDS: iohexoL 350 MG/ML 100 ML INFUS..BTL 85 ML IV (08:37)
[2024-03-29 09:51] VITALS: BP 107/59; PULSE 90; RESP 18; TEMP 36.2; O2SAT 97
== END 2024-03-29 09:52 | disposition home or self-care (01) ==
PROVIDERS: Emergency Provider Emergency Medicine; PCP Internal Medicine
DX: K59.00 Constipation, unspecified (principal); R10.84 Generalized abdominal pain; E11.9 Type 2 diabetes mellitus without complications
CPT/HCPCS: 36415; 74177; 80053; 81003; 83690; 85025; 96360; 99284; Q9967

== ENCOUNTER 2024-04-19 10:38 | Outpatient (AMB) | payer MEDICARE, MEDICAID, SELFPAY ==
--- NOTE | 2024-04-19 10:39 | MHC.OFFVIS ---
Vital Signs 04/19/24 10:56 Height 4 ft 10 in Weight 130 lb 6 oz BMI 27.2 BP 109/59 L Blood Pressure Location Lt brachial Position Sitting Pulse 80 Intake Visit Reasons: Abdominal hernia Intake Note: Patient is seen in office for follow up visit, following abdominal hernia. Pt c/o: admits to pain and nausea went to ED and was told she has a hernia, is able to see the lump, reducible, onset 03/29/24 Paint Spray Tender Required: No Accompanied by: Other Relationship Allergies Chocolate Allergy (Mild, Verified 04/03/24 15:11) Rash environmental allergies Allergy (Mild, Verified 04/03/24 15:11) Itchy Eyes erythromycin base [Erythromycin Base] Adverse Reaction (Intermediate, Verified 04/03/24 15:11) GI UPSET ibuprofen [From Motrin] Adverse Reaction (Intermediate, Verified 04/03/24 15:11) Gastrointestinal Upset, increases pain Medication List - Last Reconciled 04/19/24 by Parish Sanchez MD albuterol sulfate 90 mcg/actuation 2 puffs inhalation Q4-6H PRN apixaban (Eliquis) 5 mg PO BID cholecalciferol (vitamin D3) 1,000 units PO BEDTIME dicyclomine 20 mg PO TID PRN 30 days docusate sodium (Colace) 100 mg PO BID dronedarone (Multaq) 400 mg PO BID 90 days ferrous sulfate 325 mg PO BID lactulose 10 grams (15 mL) PO BEDTIME 30 days loratadine 10 mg PO BEDTIME meclizine 25 mg PO BID PRN 90 days melatonin 5 mg PO .qhs PRN 30 days montelukast 10 mg PO BEDTIME omeprazole 20 mg PO DAILY oxybutynin chloride ER 10 mg PO BEDTIME simvastatin 20 mg PO BEDTIME tramadol 10 mg HPI Comments Details: 63-year-old female patient well known to service with a prior history of small-bowel obstruction due to adhesions, status post exploratory laparotomy with lysis of adhesions. She now presents with pain and swelling in the upper abdomen over the last several months. She subsequently was evaluated in the emergency department and found by CT abdomen and pelvis to have an incisional hernia in the upper abdomen. She denies nausea, vomiting, fever or chills. The only lifting she performs is when she is bowling, using her 10 lb ball. Her bowels have been normal. She presents to discuss possible repair of this incisional hernia. [facility] Medical History History of COVID-19 COVID-19 vaccine administered Constipation Afib Overactive bladder Environmental allergies Neuroendocrine neoplasm of gastrointestinal tract Lipid disorder Colon polyp Gastric polyp Anemia Vitamin D deficiency Hyperlipemia Diabetes Arthritis IBS (irritable bowel syndrome) GERD (gastroesophageal reflux disease) Asthma Surgical History Hx of resection of small bowel H/O exploratory laparotomy (09/20/22) History of colonoscopy History of esophagogastroduodenoscopy Family History Father Afib Pneumonia Brother Afib Heart disease Brother Heart disease Mother Unknown family medical history Social History Household Members: None Housing: Apartment Housing Other:: mental health association [facility] Are you a primary critical care registered nurse to a significant other at home: No Do you presently have 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 or 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 (cleaning person, 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) Alcohol intake: never Patient Tobacco Use Status: Never used Tobacco e-Cigarette/Vaping Use: Never Used Second Hand Smoke Exposure: No Advance Directives Date on File: 12/01/21 service: No Current occupational status: disabled Cognitive needs: No Hearing needs: No Vision needs: Yes Review of Systems Const All systems reviewed & are unremarkable except as noted in HPI and below Physical Exam Vital Signs: Last Vital Signs Pulse 80 04/19/24 10:56 BP 109/59 L 04/19/24 10:56 BMI result Body Mass Index 27.2 Const General: no acute distress Nutritional Appearance: well nourished Orientation/consciousness: patient oriented x3 HEENT Head: Yes normocephalic and Yes atraumatic Resp Effort & Inspection: normal respiratory effort, no audible wheezes, no cough and no respiratory distress GI Inspection: Yes normal to inspection Palpation (GI): Soft to palpation, nontender, no guarding, not rigid and Hernia present (Upper midline incisional hernia, 4 cm diameter, reducible) Abdomen image: 1. 2. 4 cm fascial defect with 6 cm hernia sac palpable Skin Other: Warm, dry, no rash Neuro General: patient oriented x3 Extrem Other: No edema Assessment & Plan Assessment & Plan (1) Incisional hernia: Code(s): K43.2 - Incisional hernia without obstruction or gangrene Category: Medical Qualifiers: Obstruction and gangrene presence: without obstruction or gangrene Qualified Code(s): K43.2 - Incisional hernia without obstruction or gangrene Plan 63-year-old female patient with a history of Hogan syndrome and prior exploratory laparotomy for adhesions presenting now for a palpable hernia in the upper abdomen. This was evaluated in the emergency department and subsequent CT abdomen and pelvis confirmed a large upper abdominal incisional hernia. On examination the hernia is a proximally 4 cm fascial defect. We discussed the options including non operative management using abdominal binder with no heavy lifting versus surgical repair using mesh. The benefits and risks regarding mesh repairs were reviewed as well and the patient expressed understanding. After discussion of the risks, benefits and alternatives, she consents to repair of this incisional hernia with mesh. I recommended the surgery be performed as a short-stay admit due to her prior abdominal surgery for bowel obstruction, the large size of the hernia sac and the patient's underlying medical conditions, including Hogan syndrome and cardiac disease. She expressed understanding and agrees with the plan. Coding Level of Care Code Est Pt Level 4 (07212) Diagnoses Incisional hernia, without obstruction or gangrene K43.2 Obstruction and gangrene presence: without obstruction or gangrene
[2024-04-19 10:56] VITALS: BP 109/59; PULSE 80; BMI 27.2
== END 2024-04-19 11:23 | disposition home or self-care (01) ==
LOC: HO.HGS 10:38
PROVIDERS: PCP Internal Medicine; Visit Provider Surgery
DX: K43.2 Incisional hernia without obstruction or gangrene (principal)
CPT/HCPCS: 99214

== ENCOUNTER → 2024-04-19 10:38 | Outpatient (BNVA) | payer MEDICARE, MEDICAID, SELFPAY | PROVIDERS: PCP Internal Medicine; Visit Provider Surgery | DX: K43.2 Incisional hernia without obstruction or gangrene (principal) | CPT/HCPCS: 99212 ==

== ENCOUNTER → 2024-05-01 09:37 | Outpatient (REF) | payer MEDICARE, MEDICAID, SELFPAY ==
--- NOTE | ~2024-05-01 | NM_ITS ---
Myocardial perfusion study Indication: Preoperative cardiovascular risk stratification Technique: The patient was brought in for a Lexiscan perfusion study on 05/01/2024. Patient performed low-level exercise and was injected 0.4 mg of Lexiscan intravenously. Within a minute of injection, 25 mCi of sestamibi was given intravenously. Images were obtained using the SPECT gamma camera interlaced with the gating device. Images were obtained in supine position. Resting perfusion study was performed on 05/07/2024. Patient was administered 25 mCi of sestamibi intravenously at rest. Images were then obtained in supine position. Images obtained with and without CT attenuation. Total DLP 155 mGy-cm. Images were processed with the software and compared side to side in short axis, horizontal long axis and vertical long axis views. Findings: Both attenuated as well as non attenuated corrected images are of suboptimal quality due to intense subdiaphragmatic uptake interfering with inferior wall uptake The stress perfusion study showed non attenuated images show overall uniform uptake of Cardiolite in all segments of LV myocardium with diffusely minimally reduced uptake which is nonspecific. Attenuated corrected images show mildly reduced uptake in the septum and the apex of the LV myocardium.. The gated study shows normal LV systolic function with calculated LVEF of 62%. LV cavity is normal in size. The gated study shows normal systolic wall thickening and contraction of segments. Resting study shows non attenuated images show overall uniform uptake of tracer in all segments of LV myocardium. Gating at rest reveals normal systolic wall motion with ejection fraction at 66%. The findings are consistent with no clear reversible defect suggestive of ischemia. Likely normal myocardial perfusion. NM/NM cardiolite stress test Impression: 1. Myocardial perfusion imaging study shows likely normal myocardial perfusion 2. Gated LVEF is 62% 3. Transient ischemic dilatation not present EKG is nondiagnostic for ischemia
--- NOTE | 2024-05-01 09:39 | CA_ITS ---
Acquisition Time: 2024-05-01 10:13:07 Total Exercise Time: 00:02:00 Test Indications: AFIB, PREOP Medications: SEE H Protocol: LEXISCAN Max HR: 115 BPM 73% of Pred: 156 BPM Max BP: 122/060 mmHG Max Work Load: 1.0 METS Pharmacological stress test with Lexiscan injeciton while sitting and kicking her legs, without SOB, 2/10 chest pressure, with isolated PVCs, with normotenisve response to injection, with nondiagnoisitic EKGs. Aminophylline 75mg IVP given to reverse Lexiscan. Chest pain resolved. Nuclear images pending. Test reviewed with Dr. Grijalva. Referred By: Destini Marie Overread By: Patricia Lucio
== END ==
LOC: HO.CARD 09:37
PROVIDERS: PCP Internal Medicine; Visit Provider Nurse Practitioner Family
DX: Z01.810 Encounter for preprocedural cardiovascular examination (principal); I48.0 Paroxysmal atrial fibrillation; R42 Dizziness and giddiness
CPT/HCPCS: 78452; 93017; A9500; J0280; J2785

== ENCOUNTER → 2024-05-01 09:39 | Outpatient (BNV) | payer MEDICARE, MEDICAID, SELFPAY | PROVIDERS: PCP Internal Medicine; Visit Provider Nurse Practitioner | DX: I48.91 Unspecified atrial fibrillation (principal) | CPT/HCPCS: 78452; 93016; 93018 ==

== ENCOUNTER 2024-05-08 14:44 | Outpatient (AMB) | payer MEDICARE, MEDICAID, SELFPAY ==
[2024-05-08 14:47] VITALS: BP 126/64; PULSE 64; O2SAT 98; BMI 28.0
--- NOTE | 2024-05-08 14:47 | A.OFFPC_ITS ---
Vital Signs 05/08/24 14:47 Height 4 ft 10 in Weight 134 lb 2 oz BMI 28.0 BP 126/64 Blood Pressure Location Rt brachial Position Sitting Pulse 64 Pulse Source Pulse Oximeter Pulse Oximetry (%) 98 Oxygen Delivery Method Room Air Intake Visit Reasons: Pe Allergies Chocolate Allergy (Mild, Verified 05/08/24 14:51) Rash environmental allergies Allergy (Mild, Verified 05/08/24 14:51) Itchy Eyes erythromycin base [Erythromycin Base] Adverse Reaction (Intermediate, Verified 05/08/24 14:51) GI UPSET ibuprofen [From Motrin] Adverse Reaction (Intermediate, Verified 05/08/24 14:51) Gastrointestinal Upset, increases pain Medication List - Last Reconciled 05/08/24 by Patti Crabtree MD albuterol sulfate 90 mcg/actuation 2 puffs inhalation Q4-6H PRN apixaban (Eliquis) 5 mg PO BID cholecalciferol (vitamin D3) 1,000 units PO BEDTIME dicyclomine 20 mg PO TID PRN 30 days docusate sodium (Colace) 100 mg PO BID dronedarone (Multaq) 400 mg PO BID 90 days ferrous sulfate 325 mg PO BID lactulose 10 grams (15 mL) PO BEDTIME 30 days loratadine 10 mg PO BEDTIME meclizine 25 mg PO BID PRN 90 days melatonin 5 mg PO .qhs PRN 30 days montelukast 10 mg PO BEDTIME omeprazole 20 mg PO DAILY oxybutynin chloride ER 10 mg PO BEDTIME simvastatin 20 mg PO BEDTIME tramadol 10 mg PO BID PRN Tobacco use date assessed: 05/08/24 Fall risk assessment: No Falls in past year Last assessed Fall Risk: 05/08/24 Dental Screening Dental Screen Date: 05/08/24 Did you have a dental visit in the last 12 months?: Yes Did you have a dental problem in the last 6 months where you did not have access to dental care?: No Was dental information given to patient?: Patient has dentist HPI Pe HPI Details Physical exam appointment Patient has history of paroxysmal atrial fibrillation, diet-controlled diabetes, lipid disorder, chronic dizziness, metastatic carcinoid tumor Orthostatic hypotension, chronic GERD, irritable bowel syndrome, overactive bladder, environmental allergies Mammogram is up-to-date Patient is declining to see OBGYN Patient will be going in for ventral hernia repair by Dr. Sanchez next week Labs done recently reviewed I see that her sugar came back about 200 We did the hemoglobin A1c today which is 6.4 Patient offer no new complaints Albuterol inhaler refill sent Medication list reviewed Allergies are stable dizziness is stable [facility] Medical History History of COVID-19 COVID-19 vaccine administered Constipation Afib Overactive bladder Environmental allergies Neuroendocrine neoplasm of gastrointestinal tract Lipid disorder Colon polyp Gastric polyp Anemia Vitamin D deficiency Hyperlipemia Diabetes Arthritis IBS (irritable bowel syndrome) GERD (gastroesophageal reflux disease) Asthma Surgical History Hx of resection of small bowel H/O exploratory laparotomy (09/20/22) History of colonoscopy History of esophagogastroduodenoscopy Family History Father Afib Pneumonia Brother Afib Heart disease Brother Heart disease Mother Unknown family medical history Social History Household Members: None Housing: Apartment Housing Other:: mental health association [facility] Are you a primary youth care worker to a significant other at home: No Do you presently have 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 or 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 ([facility], home health aid) Alcohol intake: never Patient Tobacco Use Status: Never used Tobacco e-Cigarette/Vaping Use: Never Used Second Hand Smoke Exposure: No Advance Directives Date on File: 12/01/21 service: No Current occupational status: disabled Cognitive needs: No Hearing needs: No Vision needs: Yes Questionnaire Thrive Questionnaire Date Thrive assessed: 02/16/24 AUDIT C Alcohol Use Questionnaire (AUDIT-C) 1. How often do you have a drink containing alcohol?: Never 3. How often do you have six or more drinks on one occasion?: Never Total Score: 0 Score Reviewed/Action Taken: Yes LYLE-7 AMB Questionnaire LYLE-7 Date LYLE - 7 assessed: 02/16/24 Source: Developed by Drs. Teodoro Young, Glenna Jimenez, Ayo Ramesh and colleagues, with an educational manuel from [employer]. Review of Systems Const Denies chills, Denies fever(s) and Denies headache(s) ENT Denies headache(s), Denies nasal discharge, Denies nasal obstruction, Denies odynophagia and Denies sinus pain Card Denies chest pain at rest and Denies chest pain with activity Resp Denies cough and Denies hemoptysis GI Denies odynophagia, Denies vomiting and Denies hematemesis Reports as per HPI Skin/Breast Reports as per HPI Neuro Denies Neuro-related abnormal movements, Denies Abnormal speech present and Denies headache(s) Psych Denies mood swings and Denies paranoia Endo Reports as per HPI Emanuel/Lymph Reports as per HPI Aller/Immun Reports as per HPI Physical exam (Primary Care) Vital Signs: Last Vital Signs Pulse 64 05/08/24 14:47 BP 126/64 05/08/24 14:47 Pulse Ox 98 05/08/24 14:47 Oxygen Delivery Method Room Air 05/08/24 14:47 BMI result Body Mass Index 28.0 Tobacco/Smoking Status: Tobacco use Status Tobacco use date assessed 05/08/24 05/08/24 14:51 Patient Tobacco Use Status Never used Tobacco 05/08/24 14:51 e-Cigarette/Vaping Use Never Used 05/08/24 14:51 Thrive Assessment: Date of Thrive Assessment Date Thrive assessed 02/16/24 05/08/24 14:51 Const General: cooperative, comfortable and no acute distress Orientation/consciousness: patient oriented x3 HENMT Head: Yes normocephalic and Yes atraumatic Eyes General: appearance normal, both eyes and all related structures Pupils: Equal, round and reactive pupils present EOM: EOMs intact bilaterally Neck Neck: Yes supple and No lymphadenopathy Thyroid: Thyroid normal Lymphatic: no lymphadenopathy noted Chest Other: Breasts under developed, no lump felt Resp Effort & Inspection: normal respiratory effort and able to speak in complete sentences Auscultation: clear to auscultation bilaterally Cardio Heart sounds: S1 normal heart sound present and S2 normal heart sound present GI Other: Incisional hernia present, soft nontender bowel sounds positive General: Yes no CVA tenderness Back/Spine/Pelvis Back: no CVA tenderness Skin General skin exam: elasticity normal and turgor normal Neuro Other: Uses walker for ambulation General: patient oriented x3 and gait normal Cranial nerves: Yes Equal, round and reactive pupils present Speech: No Abnormal speech present Extrem General: Yes normal exam except as noted and No edema Assessment and Plan Assessment & Plan (1) Encounter for general adult medical examination with abnormal findings: Code(s): Z00.01 - Encounter for general adult medical examination with abnormal findings (2) Gait instability: Code(s): R26.81 - Unsteadiness on feet (3) Incisional hernia: Code(s): K43.2 - Incisional hernia without obstruction or gangrene Qualifiers: Obstruction and gangrene presence: without obstruction or gangrene Qualified Code(s): K43.2 - Incisional hernia without obstruction or gangrene (4) Diet-controlled type 2 diabetes mellitus: Code(s): E11.9 - Type 2 diabetes mellitus without complications (5) Vertigo: Code(s): R42 - Dizziness and giddiness (6) Lipid disorder: Code(s): E78.9 - Disorder of lipoprotein metabolism, unspecified (7) Paroxysmal atrial fibrillation: Code(s): I48.0 - Paroxysmal atrial fibrillation (8) Metastatic carcinoid tumor: Comment: -sees Onc next week-she is expecting to have labs Discuss colonoscopy previously however-wants to confirm Code(s): C7B.00 - Secondary carcinoid tumors, unspecified site (9) Orthostatic hypotension: Code(s): I95.1 - Orthostatic hypotension (10) Overactive bladder: Code(s): N32.81 - Overactive bladder (11) Environmental allergies: Code(s): Z91.09 - Other allergy status, other than to drugs and biological substances Plan Physical exam appointment Patient has history of paroxysmal atrial fibrillation, diet-controlled diabetes, lipid disorder, chronic dizziness, metastatic carcinoid tumor Orthostatic hypotension, chronic GERD, irritable bowel syndrome, overactive bladder, environmental allergies Mammogram is up-to-date Patient is declining to see OBGYN Patient will be going in for ventral hernia repair by Dr. Sanchez next week Labs done recently reviewed I see that her sugar came back about 200 We did the hemoglobin A1c today which is 6.4 Patient offer no new complaints Albuterol inhaler refill sent Medication list reviewed Allergies are stable dizziness is stable Medications: New albuterol sulfate 90 mcg/actuation 2 puffs inhalation Q4-6H PRN 8.5 grams 0RF Shortness Of Breath Or Wheezing Coding Level of Care Code Est Pt Level 3 (29274) Est Pt Prev Care 40-64y(49013) Diagnoses Encounter for general adult medical examination with abnormal findings Z00.01 Gait instability R26.81 Incisional hernia, without obstruction or gangrene K43.2 Obstruction and gangrene presence: without obstruction or gangrene Diet-controlled type 2 diabetes mellitus E11.9 Vertigo R42 Lipid disorder E78.9 Paroxysmal atrial fibrillation I48.0 Metastatic carcinoid tumor C7B.00 Orthostatic hypotension I95.1 Overactive bladder N32.81 Environmental allergies Z91.09
== END 2024-05-08 17:48 | disposition home or self-care (01) ==
PROVIDERS: PCP Internal Medicine; Visit Provider Internal Medicine
DX: Z00.00 Encounter for general adult medical examination without abnormal findings (principal); E11.9 Type 2 diabetes mellitus without complications; I48.0 Paroxysmal atrial fibrillation; C7B.00 Secondary carcinoid tumors, unspecified site; R26.81 Unsteadiness on feet; K43.2 Incisional hernia without obstruction or gangrene; R42 Dizziness and giddiness; E78.9 Disorder of lipoprotein metabolism, unspecified; I95.1 Orthostatic hypotension; N32.81 Overactive bladder; Z91.09 Other allergy status, other than to drugs and biological substances
CPT/HCPCS: 83036; 99396

== ENCOUNTER → 2024-05-15 07:21 | Outpatient (BNV) | payer MEDICARE, MEDICAID, SELFPAY | PROVIDERS: PCP Internal Medicine; Visit Provider Surgery | DX: K43.2 Incisional hernia without obstruction or gangrene (principal) | CPT/HCPCS: 49593; 99024; 99232; 99239; G0180 ==

== ENCOUNTER 2024-05-16 15:54 | Outpatient (BNV) | payer MEDICARE, MEDICAID, SELFPAY | END 2024-05-20 07:00 | PROVIDERS: Admitting Provider Surgery; PCP Internal Medicine; Visit Provider Internal Medicine | DX: I31.39 Other pericardial effusion (noninflammatory) (principal); I48.91 Unspecified atrial fibrillation; I49.3 Ventricular premature depolarization | CPT/HCPCS: 93010; 93306 ==

== ENCOUNTER 2024-05-16 15:54 | Inpatient (IN) | payer MEDICARE, MEDICAID, SELFPAY ==
[2024-05-07 12:14] VITALS: BP 101/58; PULSE 62; RESP 18; O2SAT 97; BMI 27.2
--- NOTE | 2024-05-07 12:21 | HO.ANESPROP2 ---
Documented by User: Sofia Garcia NP 05/13/24 14:37 HPI - Anesthesia Eval Consult details Narrative: 63yo F for Hernia Incisional Reducible with mesh, 05/15/24 No recent illness. Seasonal allergies with daily rx. No CP/SOB with bowling Afib: Eliquis. Follows [facility]. Stress test pending Gastrointestinal 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 tumor: Per oncology, 2019 Soft tissue mass in the small bowel mesentry measuring 4.4 x 3.6 x 3.6 cm encircling the superior mesenteric artery. Partial excision was performed 04/15/2019, well-differentiated 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 tumor extending to tissue margins. Tumor could not be entirely resected as it was encircling and adherent to superior mesenteric artery. 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 Problems Active Problems: All Active Problems Preop cardiovascular exam (Acute) Incisional hernia (Acute) Gait instability (Acute) Diet-controlled type 2 diabetes mellitus (Acute) Use of cane as ambulatory aid (Acute) Vertigo (Acute) Encounter for general adult medical examination with abnormal findings (Acute) Lipid disorder (Acute) Low blood pressure (Acute) Paroxysmal atrial fibrillation (Acute) Metastatic carcinoid tumor (Chronic) Hyperkalemia (Acute) Vitamin D deficiency (Acute) Chronic vertigo (Acute) Hospital discharge follow-up (Acute) Orthostatic hypotension (Acute) Dizziness (Acute) Chest discomfort (Acute) Stomach upset (Acute) GERD (gastroesophageal reflux disease) (Acute) Hospital discharge follow-up (Acute) Non-cardiac chest pain (Acute) Upper respiratory tract infection (Acute) Small bowel obstruction (Acute) Hogan syndrome (Acute) Carcinoid tumor (Acute) S/P exploratory laparotomy (Acute) IBS (irritable bowel syndrome) (Acute) Constipation (Acute) Overactive bladder (Acute) Environmental allergies (Acute) Neuroendocrine neoplasm of gastrointestinal tract (Chronic) Past Medical History Medical History History of COVID-19 COVID-19 vaccine administered Constipation Afib Overactive bladder Environmental allergies Neuroendocrine neoplasm of gastrointestinal tract Lipid disorder Colon polyp Gastric polyp Anemia Vitamin D deficiency Hyperlipemia Diabetes Arthritis IBS (irritable bowel syndrome) GERD (gastroesophageal reflux disease) Asthma Family History Family History Father Afib Pneumonia Brother Afib Heart disease Brother Heart disease Mother Unknown family medical history Family history of problems with anesthesia: No Surgical History Surgical History Hx of resection of small bowel H/O exploratory laparotomy (09/20/22) History of colonoscopy History of esophagogastroduodenoscopy History of Problems with Anesthesia: No Social History Social History Household Members: None Housing: Apartment Housing Other:: [facility] health association [facility] Are you a primary career services officer to a significant other at home: No Do you presently have 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 or 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 ([facility], home health aid) Alcohol intake: never Patient Tobacco Use Status: Never used Tobacco e-Cigarette/Vaping Use: Never Used Second Hand Smoke Exposure: No Use of substances other than those prescribed or required for medical reasons: No Have you been hit, kicked, punched, or otherwise hurt by someone within the past year? If so, by whom?: No Are you DNR?: No Advance Directives: Yes Advance Directives Information Provided: Yes Advance Directives on File: Yes Advance Directives Date on File: 12/01/21 Recently lost weight without trying: No Eating poorly because of decreased appetite: No Nutrition Risks: No Nutritional Risk Poor oral hygiene: No service: No Current occupational status: disabled Cognitive needs: No Hearing needs: No Vision needs: Yes Meds Allergies Allergy/AdvReac Type Severity Reaction Status Date / Time Chocolate Allergy Mild Rash Verified 05/08/24 14:51 environmental allergies Allergy Mild Itchy Eyes Verified 05/08/24 14:51 erythromycin base AdvReac Intermediate GI UPSET Verified 05/08/24 14:51 [Erythromycin Base] ibuprofen [From Motrin] AdvReac Intermediate Gastrointestinal Verified 05/08/24 14:51 Upset, increases pain Home Medications ?Medication ?Instructions ?Recorded ?Confirmed ?Last Taken ?Type tramadol 50 mg tablet 10 mg PO BID PRN Pain 04/03/24 05/08/24 Unknown History Exam Pertinent Lab Results Pertinent Lab Results: Laboratory Tests 05/01/24 14:35 WBC 7.9 Hgb 12.0 Hct 36.9 L Plt Count 230 Sodium 143 Potassium 4.1 D Chloride 109 H Carbon Dioxide 26 BUN 15 Creatinine 0.87 Narrative Narrative: EKG 12/2023 Vent. Rate : 061 BPM Atrial Rate : 061 BPM P-R Int : 192 ms QRS Dur : 066 ms QT Int : 430 ms P-R-T Axes : 082 006 055 degrees QTc Int : 432 ms Normal sinus rhythm Normal ECG When compared with ECG of 17-SEP-2022 22:05, Premature ventricular complexes are no longer Present ECHO 2022 Conclusions: - 1. Normal LV systolic function with LVEF of 60 65% 2. [id number] mitral regurgitation 3. Normal RV systolic pressure 4. No pericardial effusion NM cardiolite stress test 04/2024 Impression: 1. Myocardial perfusion imaging study shows likely normal myocardial perfusion 2. Gated LVEF is 62% 3. Transient ischemic dilatation not present EKG is nondiagnostic for ischemia Airway Mallampati Class: III TM Dist: <=3cm Neck ROM: Full Loose/Missing/Broken Teeth: Yes (broken crown/missing molar) Heart: RRR Lungs: CTAB Assessment and Plan Assessment Anesthesia Assessment: Anesthesia Plan Discussed and PAT Visit Final Anesthetic Review Family History of Problems with Anesthesia: No History of Problems with Anesthesia: No Documented by User: Shanika Howell MD 05/15/24 08:09 [facility] Past Medical History Medical History History of COVID-19 COVID-19 vaccine administered Constipation Afib Overactive bladder Environmental allergies Neuroendocrine neoplasm of gastrointestinal tract Lipid disorder Colon polyp Gastric polyp Anemia Vitamin D deficiency Hyperlipemia Diabetes Arthritis IBS (irritable bowel syndrome) GERD (gastroesophageal reflux disease) Asthma Family History Family History Father Afib Pneumonia Brother Afib Heart disease Brother Heart disease Mother Unknown family medical history Surgical History Surgical History Hx of resection of small bowel H/O exploratory laparotomy (09/20/22) History of colonoscopy History of esophagogastroduodenoscopy Social History Social History Household Members: None Housing: Apartment Housing Other:: [facility] Are you a primary career services officer to a significant other at home: No Do you presently have 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 or 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 ([facility], home health aid) Alcohol intake: never Patient Tobacco Use Status: Never used Tobacco e-Cigarette/Vaping Use: Never Used Second Hand Smoke Exposure: No Use of substances other than those prescribed or required for medical reasons: No Have you been hit, kicked, punched, or otherwise hurt by someone within the past year? If so, by whom?: No Are you DNR?: No Advance Directives: Yes Advance Directives Information Provided: Yes Advance Directives on File: Yes Advance Directives Date on File: 12/01/21 Recently lost weight without trying: No Eating poorly because of decreased appetite: No Nutrition Risks: No Nutritional Risk Poor oral hygiene: No service: No Current occupational status: disabled Cognitive needs: No Hearing needs: No Vision needs: Yes Meds Allergies Allergy/AdvReac Type Severity Reaction Status Date / Time Chocolate Allergy Mild Rash Verified 05/08/24 14:51 environmental allergies Allergy Mild Itchy Eyes Verified 05/08/24 14:51 erythromycin base AdvReac Intermediate GI UPSET Verified 05/08/24 14:51 [Erythromycin Base] ibuprofen [From Motrin] AdvReac Intermediate Gastrointestinal Verified 05/08/24 14:51 Upset, increases pain Home Medications ?Medication ?Instructions ?Recorded ?Confirmed ?Last Taken ?Type tramadol 50 mg tablet 10 mg PO BID PRN Pain 04/03/24 05/08/24 Unknown History Assessment and Plan Assessment Anesthesia Assessment: Chart Reviewed Final Anesthetic Review NPO: Yes ASA Class: III Final Preanesthetic Review: No Changes in Pt Med Stat, Meds/Allgs Chart Reviewed, Consent Obtained/Reviewed and Anes Risks/Benef Reviewed Patient Risk: Intermediate Procedure Risk: Intermediate Anesthetic Plan Anesthetic Plan: GA, Regional Block and Agree w/ Assess. and Plan Disposition: Standard PACU
[2024-05-15] VITALS (9 sets, daily range): BP systolic 110–150; BP diastolic 56–77; PULSE 67–89; RESP 16–20; TEMP 36.1–36.7; O2SAT 95–98; BMI 29.0
--- NOTE | 2024-05-15 07:20 | MHC.SHP ---
Pre-Procedural Eval Section A - 24 Hr Update-Section A only Date of Service: 05/15/24 The patient is an INPATIENT: No Changes since office visit: Yes Patient answered all questions; No Cold of Flu in the past 2 weeks, No New Medical Problems and No Changes in Medication The patient has been examined within 24 hours of the surgical procedure. The History & Physical has been completed within 30 days and I have reviewed it.: Yes Section B - Complete if H&P > 30 days Chief Complaint: Incisional hernia without obstruction or gangrene Allergies: Allergies Allergy/AdvReac Type Severity Reaction Status Date / Time Chocolate Allergy Mild Rash Verified 05/08/24 14:51 environmental allergies Allergy Mild Itchy Eyes Verified 05/08/24 14:51 erythromycin base AdvReac Intermediate GI UPSET Verified 05/08/24 14:51 [Erythromycin Base] ibuprofen [From Motrin] AdvReac Intermediate Gastrointestinal Verified 05/08/24 14:51 Upset, increases pain Plan Diagnosis/Plan: Unchanged I have reviewed the history and physical and performed a pertinent physical examination on my patient. No changes have occurred unless specified. Time Spent With Patient Time: Total time managing care of this patient today ____ minutes.
[2024-05-15] MEDS: Lactated Ringers 1,000 ML 100 ML IVCONT ×2 (07:32→11:10)
--- NOTE | 2024-05-15 09:29 | P.OP_ITS ---
Operative Note Operative Note Date of Service: 05/15/24 Narrative: Preoperative diagnosis: Incisional hernia upper abdomen, reducible Postoperative diagnosis: Same Procedure: Repair of reducible incisional hernia with mesh Surgeon: Parish Sanchez MD Pharmacy Affairs Assistant: Lizbet Yee PA-C Anesthesia: General endotracheal Indications for procedure: 63-year-old female patient with history of Hogan syndrome, carcinoid tumor, previous history of small-bowel obstruction, status post exploratory laparotomy, returning with a new incisional hernia in the upper abdomen. Hernias reducible with light pressure. Operative findings: Defect measures approximately 9 cm in diameter and was repaired using a 14 x 11 cm Ventrio mesh. Portion of the omentum was incarcerated within the hernia sac. Specimen: Hernia sac Estimated blood loss: 15 mL Complications: None Procedure details: Patient was brought to the OR and placed in a supine position. After administering general anesthesia and a rectus sheath block, the abdomen was then prepped with ChloraPrep and draped in a sterile fashion. A midline incision was made above the umbilicus and carried out through subcutaneous tissue down to the hernia sac. The hernia sac was then dissected down to the fascial edge. The sac was then entered and omental adherence noted, incarcerated within the hernia sac. This was taken down using combination of sharp dissection and electrocautery. This was reduced into the abdominal cavity. The excess hernia sac was then excised and sent for pathology. Fascial edges were then further identified and developed. A retro muscular plane was then developed circumferentially. The peritoneum and posterior rectus sheath were then closed using a running 0 Polysorb suture. An 11 x 14 cm Ventrio mesh was then obtained. This was secured to the posterior rectus sheath and a retro muscular fascia circumferentially using [id number] 0 Tycron sutures. Wounds were then irrigated with saline solution and suctioned dry. Fascia was closed over the mesh using [id number] 0 Tycron sutures. Additional local was infiltrated into a subcutaneous and retro muscular spaces. Wounds were again irrigated with saline solution and suctioned dry. Subcutaneous tissue and dermis were then reapproximated using interrupted 3-0 Polysorb sutures. Skin was closed using skin luther. Sterile dressings were then applied. The patient tolerated the procedure well. Sponge, instrument, and needle counts reported as correct. She was transferred to PACU in stable condition.
--- NOTE | 2024-05-15 11:17 | PHA.MEDREC ---
Addendum entered by Marta Chino [facility] 05/15/24 11:23: REVIEWED Original Note: Pharmacy Consult ? Medication Reconciliation Pharmacy has completed the medication reconciliation. Confirmed medications with patient. Patient stated they stopped their Eliquis 05/11/2024 for surgery and is waiting for Dr's orders to see if they are going back on or not.
[2024-05-15 11:24] LABS: Glucose, Whole Blood 155 mg/dL (60-115)
[2024-05-15 11:54] LABS: Glucose, Whole Blood 134 mg/dL (60-115)
[2024-05-15] MEDS: Acetaminophen 1,000 MG/100 ML PIGGYBACK 400 MG IV (13:49)
[2024-05-15] MEDS: oxyCODONE HCl Immed Release 5 MG TABLET PO (13:50)
[2024-05-15 16:34] LABS: Glucose, Whole Blood 212 mg/dL (60-115)
[2024-05-15 20:20] LABS: Glucose, Whole Blood 186 mg/dL (60-115)
[2024-05-15] MEDS: Morphine Sulfate 4 MG/ML CARTRIDGE 3 MG IVPUSH (21:55)
[2024-05-15] MEDS: Cholecalciferol (Vitamin D3) 25 MCG TABLET PO (21:56)
[2024-05-15] MEDS: oxyBUTYnin chloride ER 5 MG TAB.ER.24 10 MG PO (21:56)
[2024-05-15] MEDS: Atorvastatin Calcium 10 MG TABLET PO (21:56)
[2024-05-15] MEDS: Ferrous Sulfate 324 MG TABLET.DR PO (21:56)
[2024-05-15] MEDS: Montelukast Sodium 10 MG TABLET PO (21:56)
[2024-05-15] MEDS: Lactulose 20 GM/30 ML SOLUTION 10 GM PO (21:56)
[2024-05-15] MEDS: Loratadine 10 MG TABLET PO (21:56)
[2024-05-15] MEDS: Acetaminophen 1,000 MG/100 ML PIGGYBACK 100 MG IV (21:57)
--- NOTE | ~2024-05-16 | XR_ITS ---
EXAMINATION: XR ABDOMEN KUB CLINICAL INDICATION: Abdominal distention, pain COMPARISON: Abdomen CT from 03/19/2024 TECHNIQUE: AP view of the abdomen is obtained with the patient in upright position. FINDINGS: This patient has recently undergone abdominal wall hernia repair. There are skin luther of the abdominal wall. Loops of small bowel are dilated. Scattered air-fluid levels are present. The most dilated small bowel loops measure up to 4-5 cm. There is a paucity of gas in the colon, although gas is seen within colon and rectum. No overt pneumoperitoneum, although this examination is limited and lung bases are not completely included in the [id number]. XR/XR KUB IMPRESSION: The small bowel is distended and has air-fluid levels. In a postoperative setting, this could represent a small bowel ileus although currently unable to exclude small bowel obstruction which is considered less likely. Follow-up recommended.
--- NOTE | ~2024-05-16 | CT_ITS ---
EXAMINATION: CT ABDOMEN AND PELVIS WITH CONTRAST CLINICAL INFORMATION: Abdominal distention. Nausea. Status post hernia repair COMPARISON: Portions of a previous 03/29/24 TECHNIQUE: Multidetector volumetric images were obtained from the superior aspect of the liver through the pubic symphysis following administration 85 mL of Omnipaque 350 intravenous contrast. Sagittal and coronal reformatted images were obtained on the technologist's workstation. Oral contrast: No This CT examination was performed using dose optimization techniques as appropriate, variously including the following: *Automated exposure control *Adjustment of mA and/or kV according to patient size (this includes techniques or standardized protocols for targeted exams where dose is matched to indication/reason for exam; i.e. extremities or head) *Use of iterative reconstruction technique DLP: 761 mGy-cm FINDINGS: LUNG BASES: Fluid-filled dilated distal esophagus with an area of relative narrowing which may represent the GE junction. There is a moderate hiatal hernia. The stomach is distended with fluid. There is a small to moderate amount of bilateral pleural fluid not completely included. There are bibasilar lung opacities. At least some of this is related to atelectasis. LIVER, GALLBLADDER, AND BILIARY TREE: No suspicious focal liver lesion. There is no opaque gallstone. There is no biliary dilation. PANCREAS: Pancreatic atrophy. SPLEEN: No suspicious abnormality ADRENAL GLANDS: No suspicious mass KIDNEYS AND URETERS: There is no dilation of the urinary collecting system on either side. No suspicious renal mass. BLADDER: The bladder is moderately distended. No suspicious abnormality. GASTROINTESTINAL TRACT: Abnormal. The colon is decompressed. There is an anastomotic suture in the right lower quadrant. There are markedly dilated fluid-filled small bowel loops with mixed intermediate density and bubbles of gas. There are some areas of relative narrowing in the right lower mesentery. The bowel wall appears to enhance. There is no convincing pneumatosis. There is abnormality of the abdominal wall including linear collections of gas which could be postoperative. There is a hiatal hernia and the stomach is distended with fluid. There is no enteric tube demonstrated. The second and third portions of the duodenum are not well visualized. There is some swirling of the mesentery. There is some free intraperitoneal fluid. There are some mesenteric lymph nodes. ABDOMINAL WALL: Postoperative changes with gas present. LYMPH NODES: As described there are some mesenteric lymph nodes. There are no enlarged retroperitoneal lymph nodes. VASCULAR: There is no abdominal aortic aneurysm. The main portal vein enhances. As described there is some swirling of the mesenteric vessels. There is enhancement in the central portion of the SMA. PELVIC VISCERA: No suspicious abnormality. OSSEOUS STRUCTURES: No suspicious focal lesion. There are degenerative changes in the spine CT/CT abdomen pelvis w IV con IMPRESSION: The study is abnormal. There are markedly dilated fluid-filled loops of small bowel. There are postoperative changes. The colon is decompressed. Small bowel obstruction suspected. There is intraperitoneal fluid. The bowel wall does enhance. Bilateral pleural effusions with bibasilar lung disease. The patient may benefit by placement of a nasogastric tube. Postoperative changes in the abdominal wall Fleischner guidelines were followed.
[2024-05-16 03:22] VITALS: BP 116/61; PULSE 58; RESP 16; TEMP 36.1; O2SAT 96
[2024-05-16] MEDS: Acetaminophen 1,000 MG/100 ML PIGGYBACK 400 MG IV (05:18)
[2024-05-16] MEDS: Lactated Ringers 1,000 ML 100 ML IVCONT ×2 (05:19→21:27)
[2024-05-16] MEDS: ondansetron HCL 4 MG/2 ML VIAL IVPUSH ×3 (05:27→23:47)
[2024-05-16] MEDS: Omeprazole 20 MG CAPSULE.DR PO (07:00)
--- NOTE | 2024-05-16 07:23 | PM.PNGS ---
Subjective Subjective Date of Service: 05/16/24 <[facility] Last Filed: 05/16/24 07:35> 05/16/24 <Lizbet Yee PA-C - Last Filed: 05/16/24 07:50> 05/16/24 <Parish Sanchez MD - Last Filed: 05/16/24 15:59> Interval history: Pt states she is feelig fair this morning. Endorses 5/10 pain and some soreness when moving, but IV pain medication controlling pain well. Reports some nausea last night after trying to eat dinner, and also had some nausea this morning but has since resolved. Would like to try PO intake again this AM. She has been OOB with assistance and is urinating normally but has not passed gas or a bowel movement. <[facility] Last Filed: 05/16/24 07:35> Physical Exam Vital Signs: Vital Signs: Last Vital Signs Temp 96.9 F 05/16/24 03:22 Pulse 58 05/16/24 03:22 Resp 16 05/16/24 03:22 BP 116/61 05/16/24 03:22 Pulse Ox 96 05/16/24 03:22 O2 Del Method Room Air 05/16/24 03:22 BMI result Body Mass Index 29.0 <[facility] Last Filed: 05/16/24 07:35> Const: General: comfortable, no acute distress, alert and awake <[facility] Last Filed: 05/16/24 07:35> Orientation/consciousness: patient oriented x3 <[facility] Last Filed: 05/16/24 07:35> Resp: Other: Observed using incentive spirometer <[facility] Last Filed: 05/16/24 07:35> Effort & Inspection: normal respiratory effort and able to speak in complete sentences <[facility] Last Filed: 05/16/24 07:35> GI: Other: Abdomen with binder across mid section and dressing clean dry and intact. Mildly tender to light palpation over the incision. <[facility] Last Filed: 05/16/24 07:35> Neuro: General: patient oriented x3 <[facility] Last Filed: 05/16/24 07:35> Objective Data Active Medications Albuterol Sulfate (Albuterol Sulfate 90 Mcg 8 Gm Inhaler) 2 puff INHALE RQ4H PRN PRN Reason: Shortness Of Breath Or Wheezing Apixaban (Apixaban 5 Mg Tablet) 5 mg PO BID [facility] Atorvastatin Calcium (Atorvastatin Calcium 10 Mg Tablet) 10 mg PO BEDTIME [facility] Last Admin: 05/15/24 21:56 Dose: 10 mg Documented By: MARK Dicyclomine HCl (Dicyclomine Hcl 10 Mg Capsule) 20 mg PO TID PRN PRN Reason: abdominal pain Docusate Sodium (Docusate Sodium 100 Mg Capsule) 100 mg PO BID [facility] Dronedarone (Dronedarone Hcl 400 Mg Tablet) 400 mg PO BID [facility] Ferrous Sulfate (Ferrous Sulfate 324 Mg Tablet.Dr) 324 mg PO BID [facility] Last Admin: 05/15/24 21:56 Dose: 324 mg Documented By: MARK Lactated Ringer's (Lr) 1,000 mls @ 100 mls/hr IVCONT .Q10H [facility] Last Admin: 05/16/24 05:19 Dose: 100 mls/hr Documented By: MARK Acetaminophen (Ofirmev) 1,000 mg in 100 mls @ 400 mls/hr IV Q6H [facility] Stop: 05/16/24 08:19 Last Infusion: 05/16/24 06:13 Dose: Infused Documented By: MARK Lactulose (Lactulose 20 Gm/30 Ml Solution) 10 gm PO BEDTIME [facility] Last Admin: 05/15/24 21:56 Dose: 10 gm Documented By: MARK Loratadine (Loratadine 10 Mg Tablet) 10 mg PO BEDTIME [facility] Last Admin: 05/15/24 21:56 Dose: 10 mg Documented By: MARK Meclizine HCl (Meclizine Hcl 25 Mg Tablet) 25 mg PO BID PRN PRN Reason: motion sickness Melatonin (Melatonin 3 Mg Tablet) 6 mg PO BEDTIME PRN PRN Reason: To sleep Montelukast Sodium (Montelukast Sodium 10 Mg Tablet) 10 mg PO BEDTIME [facility] Last Admin: 05/15/24 21:56 Dose: 10 mg Documented By: MARK Morphine Sulfate (Morphine Sulfate 4 Mg/Ml Cartridge) 3 mg IVPUSH Q3H PRN; Protocol PRN Reason: Pain, Severe (Pain Scale 7-10) Last Admin: 05/15/24 21:55 Dose: 3 mg Documented By: MARK Omeprazole (Omeprazole 20 Mg Capsule.Dr) 20 mg PO DAILY@0630 [facility] Last Admin: 05/16/24 07:00 Dose: 20 mg Documented By: MARK Ondansetron HCl (Ondansetron Hcl 4 Mg/2 Ml Vial) 4 mg IVPUSH QID PRN PRN Reason: Nausea Last Admin: 05/16/24 05:27 Dose: 4 mg Documented By: MARK Oxybutynin Chloride (Oxybutynin Chloride Er 5 Mg Tab.Er.24) 10 mg PO BEDTIME [facility] Last Admin: 05/15/24 21:56 Dose: 10 mg Documented By: MARK Oxycodone HCl (Oxycodone Hcl Immed Release 5 Mg Tablet) 5 mg PO Q6H PRN PRN Reason: Pain, Moderate(Pain Scale 4-6) Last Admin: 05/15/24 13:50 Dose: 5 mg Documented By: BRI Vitamin D (Cholecalciferol (Vitamin D3) 25 Mcg Tablet) 25 mcg PO BEDTIME [facility] Last Admin: 05/15/24 21:56 Dose: 25 mcg Documented By: MARK <Lorraine Healy - Last Filed: 05/16/24 07:35> Labs Labs: Laboratory Results - last 24 hr 05/15/24 05/15/24 05/15/24 07:20 11:20 16:24 POC Glucose 134 H 155 H 212 H 05/15/24 20:14 POC Glucose 186 H <Lorraine Healy - Last Filed: 05/16/24 07:35> Procedures Date of Service Date of Service: 05/16/24 <Lorraine Healy - Last Filed: 05/16/24 07:35> 05/16/24 <Lizbet Yee PA-C - Last Filed: 05/16/24 07:50> 05/16/24 <Parish Sanchez MD - Last Filed: 05/16/24 15:59> Progress Note: A&P Assessment and plan (1) Incisional hernia: Status: Acute <Lorraine Healy - Last Filed: 05/16/24 07:35> Assessment and Plan: Pt doing well post op and pain is well controlled with current IV pain medication regimen Continue IV pain medication until tolerating PO intake, trial solids again this AM and if without nausea can continue PO diet Continue OOB with assistance to bathroom, initiate ambulation around room/salinas and order PT consult per Pt request, continue incentive spirometry Continue to monitor for passing flatus and bowel movement post operatively Plan for discharge once Pt tolerating PO pain medication with effect and passes flatus/BM <[facility] Last Filed: 05/16/24 07:35> Pt doing well post op and pain is well controlled with current IV pain medication regimen Continue IV pain medication until tolerating PO intake, trial solids again this AM and if without nausea can continue PO diet Continue OOB with assistance to bathroom, initiate ambulation around room/salinas and order PT consult per Pt request, continue incentive spirometry Continue to monitor for passing flatus and bowel movement post operatively Plan for discharge once Pt tolerating PO pain medication with effect and passes flatus/BM Seen independently and agree with Monet PINTO. Patient POD #1 s/p repair of large incisional hernia with mesh. Clinically appearing well this morning. Some nausea. Abd with clean/intact dressing, slightly distended, appropriate post op tenderness. Diet as tolerated. Pain control. Await return of GI function. Encouraged OOB/ambulation and IS use. Home when tolerating diet, pain controlled on PO analgesics. <Lizbet Yee PA-C - Last Filed: 05/16/24 07:50> Pt doing well post op and pain is well controlled with current IV pain medication regimen Continue IV pain medication until tolerating PO intake, trial solids again this AM and if without nausea can continue PO diet Continue OOB with assistance to bathroom, initiate ambulation around room/salinas and order PT consult per Pt request, continue incentive spirometry Continue to monitor for passing flatus and bowel movement post operatively Plan for discharge once Pt tolerating PO pain medication with effect and passes flatus/BM Seen independently and agree with Monet PINTO. Patient POD #1 s/p repair of large incisional hernia with mesh. Clinically appearing well this morning. Some nausea. Abd with clean/intact dressing, slightly distended, appropriate post op tenderness. Diet as tolerated. Pain control. Await return of GI function. Encouraged OOB/ambulation and IS use. Home when tolerating diet, pain controlled on PO analgesics. Patient also seen in examined independently and I concur with the above assessment and plan. Patient will need continued inpatient care due to her ongoing pain and nausea. <Parish Sanchez MD - Last Filed: 05/16/24 15:59> Time Spent With Patient Time: Total time managing care of this patient today ____ minutes. <Lorraine Healy - Last Filed: 05/16/24 07:35> Quality Stroke Does the patient have a stroke diagnosis?: No <Lizbet Yee PA-C - Last Filed: 05/16/24 07:50> VTE Prior VTE?: No <Lizbet Yee PA-C - Last Filed: 05/16/24 07:50> VTE Risk Level:: Surgical - high <Lizbet Yee PA-C - Last Filed: 05/16/24 07:50> VTE Device Contraindication: N/A - Device Ordered <Lizbet Yee PA-C - Last Filed: 05/16/24 07:50> VTE Drug Contraindication: N/A - Med Ordered <Lizbet Yee PA-C - Last Filed: 05/16/24 07:50>
[2024-05-16 07:39] VITALS: BP 120/63; PULSE 65; RESP 18; TEMP 36.5; O2SAT 97
[2024-05-16 07:45] LABS: Glucose, Whole Blood 139 mg/dL (60-115)
--- NOTE | 2024-05-16 08:08 | HO.POSTANES ---
Post Anesthesia Evaluation Post Anesthesia Evaluation Date of Service: 05/15/24 Vital Signs: Vital Signs Temp Pulse Resp BP Pulse Ox O2 Del Method 05/16/24 07:39 97.7 F 65 18 120/63 97 Room Air 05/16/24 03:22 96.9 F 58 16 116/61 96 Room Air Anesthesia: General Mental Status: Awake Pain Control: Satisfactory Nausea/Vomiting: None Hydration: Adequate Anesthesia-Related Issues: No Anes. Related Issues
[2024-05-16] MEDS: Docusate Sodium 100 MG CAPSULE PO ×2 (08:11→19:30)
[2024-05-16] MEDS: Ferrous Sulfate 324 MG TABLET.DR PO ×2 (08:11→19:30)
[2024-05-16] MEDS: Dronedarone HCl 400 MG TABLET PO ×2 (08:12→19:29)
[2024-05-16] MEDS: Acetaminophen 1,000 MG/100 ML PIGGYBACK 100 MG IV (08:12)
[2024-05-16 11:07] LABS: Glucose, Whole Blood 137 mg/dL (60-115)
--- NOTE | 2024-05-16 15:13 | MHC.CM.PN ---
IMM delivered. Patient lives in an apartment alone, [facility] housing. Has an [employer] support person, Leena. 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 MOW through [employer]. Ambulates independently most times, but uses cane/walker PRN. PCP Patti Crabtree HCP on file and verified. DP: Goal is home resume services. [employer] software support representative to transport. CM will continue to follow.
[2024-05-16 15:51] VITALS: BP 124/60; PULSE 65; RESP 18; TEMP 36.1; O2SAT 97
[2024-05-16] MEDS: Morphine Sulfate 4 MG/ML CARTRIDGE 3 MG IVPUSH ×2 (17:10→23:47)
[2024-05-16] MEDS: Promethazine HCL 25 MG TABLET PO (17:10)
[2024-05-16] MEDS: oxyBUTYnin chloride ER 5 MG TAB.ER.24 10 MG PO (19:28)
[2024-05-16] MEDS: Montelukast Sodium 10 MG TABLET PO (19:30)
[2024-05-16] MEDS: Loratadine 10 MG TABLET PO (19:30)
[2024-05-16] MEDS: Cholecalciferol (Vitamin D3) 25 MCG TABLET PO (19:30)
[2024-05-16] MEDS: Atorvastatin Calcium 10 MG TABLET PO (19:30)
[2024-05-16] MEDS: Lactulose 20 GM/30 ML SOLUTION 10 GM PO (19:31)
[2024-05-16 20:00] VITALS: BP 115/58; PULSE 76; RESP 18; TEMP 36.7; O2SAT 97
[2024-05-17 04:00] VITALS: BP 133/70; PULSE 83; RESP 16; TEMP 36.2; O2SAT 96
[2024-05-17] MEDS: ondansetron HCL 4 MG/2 ML VIAL IVPUSH ×4 (04:15→23:48)
[2024-05-17] MEDS: Promethazine HCL 25 MG TABLET PO (05:36)
[2024-05-17] MEDS: Omeprazole 20 MG CAPSULE.DR PO (05:37)
[2024-05-17 07:53] VITALS: BP 120/71; PULSE 65; RESP 16; TEMP 36.6; O2SAT 96
[2024-05-17 07:54] LABS: Glucose, Whole Blood 130 mg/dL (60-115)
--- NOTE | 2024-05-17 08:00 | PM.PNGS ---
Subjective Subjective Date of Service: 05/17/24 <Lizbet Yee PA-C - Last Filed: 05/17/24 08:04> 05/17/24 <Parish Sanchez MD - Last Filed: 05/17/24 13:50> Interval history: Had nausea and vomiting yesterday. Continues to c/o nausea this morning but has not vomited. Has not ambulated. Denies flatus. <Lizbet Yee PA-C - Last Filed: 05/17/24 08:04> Physical Exam Vital Signs: Vital Signs: Last Vital Signs Temp 97.8 F 05/17/24 07:53 Pulse 65 05/17/24 07:53 Resp 16 05/17/24 07:53 BP 120/71 05/17/24 07:53 Pulse Ox 96 05/17/24 07:53 O2 Del Method Room Air 05/17/24 07:53 BMI result Body Mass Index 29.0 <Lizbet Yee PA-C - Last Filed: 05/17/24 08:04> Const: General: comfortable, no acute distress and alert <Lizbet Yee PA-C - Last Filed: 05/17/24 08:04> Resp: Effort & Inspection: normal respiratory effort <ARMAND Basilio Last Filed: 05/17/24 08:04> GI: Inspection: Yes distended and Yes incision (clean) <Lizbet Yee PA-C - Last Filed: 05/17/24 08:04> Palpation (GI): Soft to palpation, Tenderness to palpation present (GI) and no guarding <Lizbet Yee PA-C - Last Filed: 05/17/24 08:04> Percussion: Yes tympanic to percussion <ARMAND Basilio Last Filed: 05/17/24 08:04> Skin: General skin exam: no rashes or lesions noted <ARMAND Basilio Last Filed: 05/17/24 08:04> Objective Data Active Medications Albuterol Sulfate (Albuterol Sulfate 90 Mcg 8 Gm Inhaler) 2 puff INHALE RQ4H PRN PRN Reason: Shortness Of Breath Or Wheezing Apixaban (Apixaban 5 Mg Tablet) 5 mg PO BID [facility] Atorvastatin Calcium (Atorvastatin Calcium 10 Mg Tablet) 10 mg PO BEDTIME [facility] Last Admin: 05/16/24 19:30 Dose: 10 mg Documented By: GILBERTO Dicyclomine HCl (Dicyclomine Hcl 10 Mg Capsule) 20 mg PO TID PRN PRN Reason: abdominal pain Docusate Sodium (Docusate Sodium 100 Mg Capsule) 100 mg PO BID [facility] Last Admin: 05/16/24 19:30 Dose: 100 mg Documented By: GILBERTO Dronedarone (Dronedarone Hcl 400 Mg Tablet) 400 mg PO BID [facility] Last Admin: 05/16/24 19:29 Dose: 400 mg Documented By: GILBERTO Ferrous Sulfate (Ferrous Sulfate 324 Mg Tablet.Dr) 324 mg PO BID [facility] Last Admin: 05/16/24 19:30 Dose: 324 mg Documented By: GILBERTO Lactated Ringer's (Lr) 1,000 mls @ 100 mls/hr IVCONT .Q10H [facility] Last Admin: 05/16/24 21:27 Dose: 100 mls/hr Documented By: TALI Acetaminophen (Ofirmev) 1,000 mg in 100 mls @ 400 mls/hr IV Q6H [facility] Lactulose (Lactulose 20 Gm/30 Ml Solution) 10 gm PO BEDTIME [facility] Last Admin: 05/16/24 19:31 Dose: 10 gm Documented By: GILBERTO Loratadine (Loratadine 10 Mg Tablet) 10 mg PO BEDTIME [facility] Last Admin: 05/16/24 19:30 Dose: 10 mg Documented By: GILBERTO Meclizine HCl (Meclizine Hcl 25 Mg Tablet) 25 mg PO BID PRN PRN Reason: motion sickness Melatonin (Melatonin 3 Mg Tablet) 6 mg PO BEDTIME PRN PRN Reason: To sleep Montelukast Sodium (Montelukast Sodium 10 Mg Tablet) 10 mg PO BEDTIME [facility] Last Admin: 05/16/24 19:30 Dose: 10 mg Documented By: GILBERTO Morphine Sulfate (Morphine Sulfate 4 Mg/Ml Cartridge) 3 mg IVPUSH Q3H PRN; Protocol PRN Reason: Pain, Severe (Pain Scale 7-10) Last Admin: 05/16/24 23:47 Dose: 3 mg Documented By: GILBERTO Omeprazole (Omeprazole 20 Mg Capsule.Dr) 20 mg PO DAILY@0630 [facility] Last Admin: 05/17/24 05:37 Dose: 20 mg Documented By: GILBERTO Ondansetron HCl (Ondansetron Hcl 4 Mg/2 Ml Vial) 4 mg IVPUSH QID PRN PRN Reason: Nausea Last Admin: 05/17/24 04:15 Dose: 4 mg Documented By: GILBERTO Oxybutynin Chloride (Oxybutynin Chloride Er 5 Mg Tab.Er.24) 10 mg PO BEDTIME [facility] Last Admin: 05/16/24 19:28 Dose: 10 mg Documented By: GILBERTO Oxycodone HCl (Oxycodone Hcl Immed Release 5 Mg Tablet) 5 mg PO Q6H PRN PRN Reason: Pain, Moderate(Pain Scale 4-6) Last Admin: 05/15/24 13:50 Dose: 5 mg Documented By: BRI Promethazine HCl (Promethazine Hcl 25 Mg/Ml Vial) 12.5 mg IM Q6H PRN PRN Reason: Nausea and Vomiting Vitamin D (Cholecalciferol (Vitamin D3) 25 Mcg Tablet) 25 mcg PO BEDTIME [facility] Last Admin: 05/16/24 19:30 Dose: 25 mcg Documented By: GILBERTO <Lizbet Yee PA-C - Last Filed: 05/17/24 08:04> Labs Labs: Laboratory Results - last 24 hr 05/16/24 05/17/24 11:00 07:49 POC Glucose 137 H 130 H <Lizbet Yee PA-C - Last Filed: 05/17/24 08:04> Procedures Date of Service Date of Service: 05/17/24 <Lizbet Yee PA-C - Last Filed: 05/17/24 08:04> 05/17/24 <Parish Sanchez MD - Last Filed: 05/17/24 13:50> Progress Note: A&P Assessment and plan (1) Incisional hernia: Status: Acute <Lizbet Yee PA-C - Last Filed: 05/17/24 08:04> Assessment and Plan: Patient POD #2 s/p repair of large incisional hernia with mesh. Continued nausea without evidence of GI function and abd distention on exam. Abd softly distended with clean incision. Will make NPO with sips/ice chips. Encouraged OOB/ambulation to promote GI function. Avoid narcotics if possible. Patient comfortable with plan. Home when tolerating diet, evidence of GI function, pain controlled on PO analgesics. <ARMAND Basilio Last Filed: 05/17/24 08:04> Time Spent With Patient Time: Total time managing care of this patient today ____ minutes. <Lizbet Yee PA-C - Last Filed: 05/17/24 08:04> Quality Stroke Does the patient have a stroke diagnosis?: No <Lizbet Yee PA-C - Last Filed: 05/17/24 08:04> VTE Prior VTE?: No <Lizbet Yee PA-C - Last Filed: 05/17/24 08:04> VTE Risk Level:: Surgical - high <ARMAND Basilio Last Filed: 05/17/24 08:04> VTE Device Contraindication: N/A - Device Ordered <ARMAND Basilio Last Filed: 05/17/24 08:04> VTE Drug Contraindication: N/A - Med Ordered <Lizbet Yee PA-C - Last Filed: 05/17/24 08:04>
[2024-05-17] MEDS: Apixaban 5 MG TABLET PO ×2 (08:49→19:53)
[2024-05-17] MEDS: Lactated Ringers 1,000 ML 100 ML IVCONT ×2 (08:49→18:41)
[2024-05-17] MEDS: Docusate Sodium 100 MG CAPSULE PO ×2 (08:49→19:53)
[2024-05-17] MEDS: Ferrous Sulfate 324 MG TABLET.DR PO ×2 (08:49→19:53)
[2024-05-17] MEDS: Dronedarone HCl 400 MG TABLET PO ×2 (08:49→19:54)
[2024-05-17] MEDS: Acetaminophen 1,000 MG/100 ML PIGGYBACK 400 MG IV ×3 (08:50→19:51)
[2024-05-17 09:00] VITALS: BP 120/71; PULSE 65; O2SAT 96
--- NOTE | 2024-05-17 10:32 | MHC.CM.PN ---
EMR reviewed. Patient not medically cleared for dc at this time. CM will continue to follow.
[2024-05-17] MEDS: Promethazine HCL 25 MG/ML VIAL 12.5 MG IM ×2 (14:36→20:29)
[2024-05-17 15:20] VITALS: BP 121/67; PULSE 75; RESP 16; TEMP 36.4; O2SAT 94
[2024-05-17] MEDS: oxyCODONE HCl Immed Release 5 MG TABLET PO ×2 (17:27→23:47)
[2024-05-17 19:15] VITALS: BP 122/61; PULSE 76; RESP 18; TEMP 36.7; O2SAT 96
[2024-05-17] MEDS: Lactulose 20 GM/30 ML SOLUTION 10 GM PO (19:52)
[2024-05-17] MEDS: Cholecalciferol (Vitamin D3) 25 MCG TABLET PO (19:53)
[2024-05-17] MEDS: oxyBUTYnin chloride ER 5 MG TAB.ER.24 10 MG PO (19:53)
[2024-05-17] MEDS: Loratadine 10 MG TABLET PO (19:53)
[2024-05-17] MEDS: Montelukast Sodium 10 MG TABLET PO (19:53)
[2024-05-17] MEDS: Atorvastatin Calcium 10 MG TABLET PO (19:53)
[2024-05-17 20:34] LABS: Glucose, Whole Blood 113 mg/dL (60-115)
[2024-05-18] MEDS: Acetaminophen 1,000 MG/100 ML PIGGYBACK 400 MG IV ×3 (02:27→13:09)
[2024-05-18] MEDS: Promethazine HCL 25 MG/ML VIAL 12.5 MG IM ×3 (02:27→16:13)
[2024-05-18 03:24] VITALS: BP 157/88; PULSE 77; RESP 18; TEMP 36.6; O2SAT 94
[2024-05-18] MEDS: Omeprazole 20 MG CAPSULE.DR PO (06:06)
[2024-05-18] MEDS: oxyCODONE HCl Immed Release 5 MG TABLET PO ×3 (06:06→19:45)
[2024-05-18] MEDS: ondansetron HCL 4 MG/2 ML VIAL IVPUSH ×3 (06:32→19:44)
[2024-05-18] MEDS: Lactated Ringers 1,000 ML 100 ML IVCONT ×2 (06:32→16:39)
[2024-05-18 06:48] VITALS: BP 121/80; PULSE 87; RESP 16; TEMP 36.6; O2SAT 95
[2024-05-18 07:17] LABS: Glucose, Whole Blood 118 mg/dL (60-115)
[2024-05-18] MEDS: Apixaban 5 MG TABLET PO ×2 (08:20→19:45)
[2024-05-18] MEDS: Ferrous Sulfate 324 MG TABLET.DR PO ×2 (08:20→19:45)
[2024-05-18] MEDS: Dronedarone HCl 400 MG TABLET PO ×2 (08:21→19:44)
[2024-05-18] MEDS: Docusate Sodium 100 MG CAPSULE PO ×2 (08:21→19:45)
--- NOTE | 2024-05-18 08:25 | P.PNGS_ITS ---
Subjective Subjective Date of Service: 05/18/24 Interval history: Continues to report nausea despite current medications. No bowel movement yet. Can not take oral med. Physical Exam Vital Signs: Vital Signs: Last Vital Signs Temp 98 F 05/18/24 06:48 Pulse 87 05/18/24 06:48 Resp 16 05/18/24 06:48 BP 121/80 05/18/24 06:48 Pulse Ox 95 05/18/24 06:48 O2 Del Method Room Air 05/18/24 06:48 BMI result Body Mass Index 29.0 Const: General: no acute distress Nutritional Appearance: well nourished Resp: Effort & Inspection: normal respiratory effort GI: Other: Midline incision is clean abdominal binder in place. Abdomen is otherwise soft with no palpable hernia with Valsalva maneuvers. Skin: Other: Warm, dry, no rash Extrem: Other: Left upper extremity edema from IV. Objective Data Active Medications Albuterol Sulfate (Albuterol Sulfate 90 Mcg 8 Gm Inhaler) 2 puff INHALE RQ4H PRN PRN Reason: Shortness Of Breath Or Wheezing Apixaban (Apixaban 5 Mg Tablet) 5 mg PO BID [facility] Last Admin: 05/18/24 08:20 Dose: 5 mg Documented By: EVELYN Atorvastatin Calcium (Atorvastatin Calcium 10 Mg Tablet) 10 mg PO BEDTIME [facility] Last Admin: 05/17/24 19:53 Dose: 10 mg Documented By: COTEMA Docusate Sodium (Docusate Sodium 100 Mg Capsule) 100 mg PO BID [facility] Last Admin: 05/18/24 08:21 Dose: 100 mg Documented By: EVELYN Dronedarone (Dronedarone Hcl 400 Mg Tablet) 400 mg PO BID [facility] Last Admin: 05/18/24 08:21 Dose: 400 mg Documented By: EVELYN Ferrous Sulfate (Ferrous Sulfate 324 Mg Tablet.Dr) 324 mg PO BID [facility] Last Admin: 05/18/24 08:20 Dose: 324 mg Documented By: EVELYN Lactated Ringer's (Lr) 1,000 mls @ 80 mls/hr IVCONT .[id number] [facility] Last Admin: 05/18/24 06:32 Dose: 100 mls/hr Documented By: ANDMIRIAM Acetaminophen (Ofirmev) 1,000 mg in 100 mls @ 400 mls/hr IV Q6H [facility] Last Admin: 05/18/24 08:21 Dose: 400 mls/hr Documented By: EVELYN Lactulose (Lactulose 20 Gm/30 Ml Solution) 10 gm PO BEDTIME [facility] Last Admin: 05/17/24 19:52 Dose: 10 gm Documented By: COTEMA Loratadine (Loratadine 10 Mg Tablet) 10 mg PO BEDTIME [facility] Last Admin: 05/17/24 19:53 Dose: 10 mg Documented By: COTEMA Meclizine HCl (Meclizine Hcl 25 Mg Tablet) 25 mg PO BID PRN PRN Reason: motion sickness Melatonin (Melatonin 3 Mg Tablet) 6 mg PO BEDTIME PRN PRN Reason: To sleep Montelukast Sodium (Montelukast Sodium 10 Mg Tablet) 10 mg PO BEDTIME [facility] Last Admin: 05/17/24 19:53 Dose: 10 mg Documented By: COTEMA Morphine Sulfate (Morphine Sulfate 4 Mg/Ml Cartridge) 3 mg IVPUSH Q3H PRN; Protocol PRN Reason: Pain, Severe (Pain Scale 7-10) Last Admin: 05/16/24 23:47 Dose: 3 mg Documented By: GILBERTO Omeprazole (Omeprazole 20 Mg Capsule.Dr) 20 mg PO DAILY@0630 [facility] Last Admin: 05/18/24 06:06 Dose: 20 mg Documented By: JOLIE Ondansetron HCl (Ondansetron Hcl 4 Mg/2 Ml Vial) 4 mg IVPUSH QID PRN PRN Reason: Nausea Last Admin: 05/18/24 06:32 Dose: 4 mg Documented By: JOLIE Oxybutynin Chloride (Oxybutynin Chloride Er 5 Mg Tab.Er.24) 10 mg PO BEDTIME [facility] Last Admin: 05/17/24 19:53 Dose: 10 mg Documented By: COTEMA Oxycodone HCl (Oxycodone Hcl Immed Release 5 Mg Tablet) 5 mg PO Q6H PRN PRN Reason: Pain, Moderate(Pain Scale 4-6) Last Admin: 05/18/24 06:06 Dose: 5 mg Documented By: JOLIE Promethazine HCl (Promethazine Hcl 25 Mg/Ml Vial) 12.5 mg IM Q6H PRN PRN Reason: Nausea and Vomiting Last Admin: 05/18/24 02:27 Dose: 12.5 mg Documented By: ANDERM Vitamin D (Cholecalciferol (Vitamin D3) 25 Mcg Tablet) 25 mcg PO BEDTIME [facility] Last Admin: 05/17/24 19:53 Dose: 25 mcg Documented By: COTEMA Labs Labs: Laboratory Results - last 24 hr 05/17/24 05/18/24 20:28 07:11 POC Glucose 113 118 H Procedures Date of Service Date of Service: 05/18/24 Progress Note: A&P Assessment and plan (1) Incisional hernia: Status: Acute Plan Patient POD #3 s/p repair of large incisional hernia with mesh. Continued nausea without evidence of GI function and abd distention on exam. Abd softly distended with clean incision. Will continue NPO with sips/ice chips. Encouraged OOB/ambulation to promote GI function. Avoid narcotics if possible. We will try Dulcolax suppository to induce bowel movement. Home when tolerating diet, evid ence of GI function, pain controlled on PO analgesics. Time Spent With Patient Time: Total time managing care of this patient today ____ minutes. Quality Stroke Does the patient have a stroke diagnosis?: No VTE Prior VTE?: No VTE Risk Level:: Surgical - high VTE Device Contraindication: N/A - Device Ordered VTE Drug Contraindication: N/A - Med Ordered
[2024-05-18 09:08] LABS: Anion Gap 18 (12-20); Blood Urea Nitrogen 13 mg/dL (9-16); Calcium 9.1 mg/dL (8.4-10.2); Carbon Dioxide 24 mmol/L (22-29); Chloride 103 mmol/L (96-108); Creatinine Clr Calc Pharmacy 54.4; Estimated Glomerular Filt Rate > 60; Glucose Fasting 104 mg/dL (60-99); Potassium 4.6 mmol/L (3.3-5.1); Sodium 140 mmol/L (135-145)
[2024-05-18] MEDS: bisacodyL 10 MG SUPP.RECT PR (09:27)
[2024-05-18 11:20] LABS: Glucose, Whole Blood 105 mg/dL (60-115)
[2024-05-18 15:23] VITALS: BP 123/61; PULSE 82; RESP 16; TEMP 36.3; O2SAT 98
[2024-05-18 19:32] VITALS: BP 117/76; PULSE 144; RESP 17; TEMP 36.2; O2SAT 96
[2024-05-18] MEDS: Montelukast Sodium 10 MG TABLET PO (19:44)
[2024-05-18] MEDS: oxyBUTYnin chloride ER 5 MG TAB.ER.24 10 MG PO (19:44)
[2024-05-18] MEDS: Cholecalciferol (Vitamin D3) 25 MCG TABLET PO (19:45)
[2024-05-18] MEDS: Atorvastatin Calcium 10 MG TABLET PO (19:45)
[2024-05-18] MEDS: Lactulose 20 GM/30 ML SOLUTION 10 GM PO (19:45)
[2024-05-18] MEDS: Loratadine 10 MG TABLET PO (19:45)
[2024-05-18 20:30] VITALS: PULSE 87
[2024-05-19] VITALS (7 sets, daily range): BP systolic 100–132; BP diastolic 55–79; PULSE 81–145; RESP 12–17; TEMP 36.1–36.6; O2SAT 92–96
[2024-05-19] MEDS: Promethazine HCL 25 MG/ML VIAL 12.5 MG IM (02:13)
[2024-05-19] MEDS: Acetaminophen 1,000 MG/100 ML PIGGYBACK 400 MG IV ×3 (02:13→15:58)
[2024-05-19] MEDS: Lactated Ringers 1,000 ML 100 ML IVCONT ×2 (02:34→15:58)
[2024-05-19] MEDS: ondansetron HCL 4 MG/2 ML VIAL IVPUSH ×3 (02:35→20:50)
[2024-05-19] MEDS: Meclizine HCl 25 MG TABLET PO ×2 (02:35→20:49)
--- NOTE | 2024-05-19 05:13 | ECG_ITS ---
Test Reason : chest pain Blood Pressure : / mmHG Vent. Rate : 148 BPM Atrial Rate : 296 BPM P-R Int : 000 ms QRS Dur : 060 ms QT Int : 284 ms P-R-T Axes : 000 004 113 degrees QTc Int : 445 ms Atrial flutter with 2:1 A-V conduction with Premature ventricular complexes Nonspecific T wave abnormality Abnormal ECG When compared with ECG of 17-JAN-2024 19:34, Atrial flutter has replaced Sinus rhythm Vent. rate has increased BY 87 BPM Nonspecific T wave abnormality, worse in Lateral leads Referred By: Parish Sanchez Electronically Signed By:ANIKA NIÑO MD
--- NOTE | 2024-05-19 05:43 | PM.EVENT ---
Event Note Date of Service: 05/19/24 Event Note: This is a 63-year-old female with pertinent history of permanent atrial fibrillation on Eliquis, mixed hyperlipidemia, gastroesophageal reflux disease, neoplasm of gastrointestinal tract, history of carcinoid tumor who underwent large incisional hernia with mesh repair on 05/[address] Sanchez. Patient developed chest discomfort overnight and hospital medicine team consulted. Patient states she felt sudden onset of midsternal chest pain, nonradiating. No palpitations, shortness of breath, sweating. Patient was resting when this happened. 97.8 degrees F 128/75, HR: 145 Satting 95% on room air Middle-aged female lying in bed in no distress Tachycardic with irregular rhythm No crackles or wheezing Abdomen with distention, binder in place She is awake, alert and oriented to self, time and place #. Chest pain: Obtaining EKG and troponin. Will place on cardiac monitoring #. AFib with RVR: Administering IV Lopressor push. Does have a history of permanent atrial fibrillation on Eliquis. Continue Multaq #. Postop day 4 status post incisional hernia repair: Has abdominal discomfort with distention. States has not had a bowel movement since surgery. Admits nausea. Obtaining KUB. Appreciate General surgery assistance #. Mixed hyperlipidemia: On statin #. Gastroesophageal reflux disease: Ppi DVT prophylaxis: Eliquis Full code Thank you for the consult. Will follow along. Time Spent With Patient Time: Total time managing care of this patient today ____ minutes.
[2024-05-19] MEDS: Metoprolol Tartrate 5 MG/5 ML VIAL IVPUSH (05:47)
--- NOTE | 2024-05-19 06:10 | PC.NURSE ---
@ 05:13 patient c/o crushing chest pain that is non-radiating along with unrelieved nausea after all ordered n/v medications were administered. RN notified general surgery, Daniel via [facility] and obtained vital signs and EKG. Per Dr. Sanchez RN to place consult to hospitalist on their behalf. Dr. Davison notified of situation. EKG, troponin, and continuous cardiac monitoring ordered and Dr. Davison at bedside with Emily Geronimo RN, Nursing puttying and calking supervisor. patient found to be in afib/flutter 140s - 5mg of IV metoprolol ordered and administered once patient on front desk monitor. HR in 80s now. KUB ordered - no bowel movement 4 days Post op, suppository given and lactulose with no effect. patient abdomen tender per exam by Dr. Davison. Start of shift no bowel sounds no flatus, this was known, RN reassess during event and patient had hypoactive bowel sounds in LUQ, LLQ, and RLQ, no bowel sounds in RUQ. distention present. pt currently states chest pain still present 02/06. Patient brought to radiology via wheelchair by Emily Geronimo, ELIZABETH, Nursing Portfolio Assistant.
[2024-05-19 06:39] LABS: Troponin-I High Sensitivity 15.9 ng/L (<3.5-17.0)
[2024-05-19 07:25] LABS: Glucose, Whole Blood 131 mg/dL (60-115)
[2024-05-19] MEDS: Dronedarone HCl 400 MG TABLET PO ×2 (07:58→20:49)
[2024-05-19] MEDS: Aspirin 325 MG TABLET PO (07:58)
[2024-05-19] MEDS: Apixaban 5 MG TABLET PO ×2 (07:59→20:49)
[2024-05-19] MEDS: iohexoL 350 MG/ML 100 ML INFUS..BTL 85 ML IV (08:45)
--- NOTE | 2024-05-19 09:01 | HO.PM.IMPN ---
Subjective Subjective Date of Service: 05/19/24 Review of Systems Follow up consultation for chest pain reporting continued pressure like pain to chest no nausea or vomiting but reported no BM Physical Exam Vital Signs: Vital Signs: Last Vital Signs Temp 97.9 F 05/19/24 06:59 Pulse 81 05/19/24 06:59 Resp 17 05/19/24 06:59 BP 132/61 05/19/24 06:59 Pulse Ox 92 05/19/24 06:59 O2 Del Method Room Air 05/19/24 06:59 BMI result Body Mass Index 29.0 Appearing in no acute distress lung sounds are clear to auscultation heart regular rate rhythm, clear S1, S2 positive bowel sounds, abdomen is soft, nontender neuro patient is alert x3, no focal deficits Objective Data Active Medications Albuterol Sulfate (Albuterol Sulfate 90 Mcg 8 Gm Inhaler) 2 puff INHALE RQ4H PRN PRN Reason: Shortness Of Breath Or Wheezing Apixaban (Apixaban 5 Mg Tablet) 5 mg PO BID [facility] Last Admin: 05/19/24 07:59 Dose: 5 mg Documented By: EVELYN Atorvastatin Calcium (Atorvastatin Calcium 10 Mg Tablet) 10 mg PO BEDTIME [facility] Last Admin: 05/18/24 19:45 Dose: 10 mg Documented By: JESUS Docusate Sodium (Docusate Sodium 100 Mg Capsule) 100 mg PO BID [facility] Last Admin: 05/19/24 08:01 Dose: Not Given Documented By: EVELYN Non-Admin Reason: Patient Refused Dronedarone (Dronedarone Hcl 400 Mg Tablet) 400 mg PO BID [facility] Last Admin: 05/19/24 07:58 Dose: 400 mg Documented By: EVELYN Ferrous Sulfate (Ferrous Sulfate 324 Mg Tablet.Dr) 324 mg PO BID [facility] Last Admin: 05/19/24 08:05 Dose: Not Given Documented By: EVELYN Non-Admin Reason: Patient Refused Lactated Ringer's (Lr) 1,000 mls @ 80 mls/hr IVCONT .[id number] [facility] Last Admin: 05/19/24 02:34 Dose: 100 mls/hr Documented By: JESUS Acetaminophen (Ofirmev) 1,000 mg in 100 mls @ 400 mls/hr IV Q6H [facility] Last Infusion: 05/19/24 08:56 Dose: Infused Documented By: EVELYN Lactulose (Lactulose 20 Gm/30 Ml Solution) 10 gm PO BEDTIME [facility] Last Admin: 05/18/24 19:45 Dose: 10 gm Documented By: JESUS Loratadine (Loratadine 10 Mg Tablet) 10 mg PO BEDTIME [facility] Last Admin: 05/18/24 19:45 Dose: 10 mg Documented By: JESUS Meclizine HCl (Meclizine Hcl 25 Mg Tablet) 25 mg PO BID PRN PRN Reason: motion sickness Last Admin: 05/19/24 02:35 Dose: 25 mg Documented By: JESUS Melatonin (Melatonin 3 Mg Tablet) 6 mg PO BEDTIME PRN PRN Reason: To sleep Montelukast Sodium (Montelukast Sodium 10 Mg Tablet) 10 mg PO BEDTIME [facility] Last Admin: 05/18/24 19:44 Dose: 10 mg Documented By: JESUS Morphine Sulfate (Morphine Sulfate 4 Mg/Ml Cartridge) 3 mg IVPUSH Q3H PRN; Protocol PRN Reason: Pain, Severe (Pain Scale 7-10) Last Admin: 05/16/24 23:47 Dose: 3 mg Documented By: GILBERTO Omeprazole (Omeprazole 20 Mg Capsule.Dr) 20 mg PO DAILY@0630 [facility] Last Admin: 05/19/24 05:55 Dose: Not Given Documented By: JESUS Non-Admin Reason: Patient Refused Ondansetron HCl (Ondansetron Hcl 4 Mg/2 Ml Vial) 4 mg IVPUSH QID PRN PRN Reason: Nausea Last Admin: 05/19/24 02:35 Dose: 4 mg Documented By: JESUS Oxybutynin Chloride (Oxybutynin Chloride Er 5 Mg Tab.Er.24) 10 mg PO BEDTIME [facility] Last Admin: 05/18/24 19:44 Dose: 10 mg Documented By: JESUS Oxycodone HCl (Oxycodone Hcl Immed Release 5 Mg Tablet) 5 mg PO Q6H PRN PRN Reason: Pain, Moderate(Pain Scale 4-6) Last Admin: 05/18/24 19:45 Dose: 5 mg Documented By: JESUS Promethazine HCl (Promethazine Hcl 25 Mg/Ml Vial) 12.5 mg IM Q6H PRN PRN Reason: Nausea and Vomiting Last Admin: 05/19/24 02:13 Dose: 12.5 mg Documented By: JESUS Vitamin D (Cholecalciferol (Vitamin D3) 25 Mcg Tablet) 25 mcg PO BEDTIME [facility] Last Admin: 05/18/24 19:45 Dose: 25 mcg Documented By: JESUS Labs 05/18/24 08:26 Labs: Laboratory Results - last 24 hr 05/18/24 05/18/24 05/19/24 08:26 11:13 05:42 Hold Purple Top SEE NOTE Anion Gap 18 Estim Creat Clear Calc 54.4 Estimated GFR > 60 POC Glucose 105 Fasting Glucose 104 H Calcium 9.1 Troponin I High Sens 15.9 D 05/19/24 06:58 Hold Purple Top Anion Gap Estim Creat Clear Calc Estimated GFR POC Glucose 131 H Fasting Glucose Calcium Troponin I High Sens Assessment and Plan (1) Incisional hernia: Status: Acute Plan 63-year-old female with pertinent history of permanent atrial fibrillation on Eliquis, mixed hyperlipidemia, gastroesophageal reflux disease, neoplasm of gastrointestinal tract, history of carcinoid tumor who underwent large incisional hernia with mesh repair on 05/[address] Sanchez. Patient developed chest discomfort overnight and hospital medicine team consulted. Patient states she felt sudden onset of midsternal chest pain, nonradiating. No palpitations, shortness of breath, sweating. Patient was resting when this happened. Chest pain EKG aflutter without ischemic changes troponin flat cardiac monitoring cardiology consultation AFib with RVR. RVR resolved Administered IV Lopressor Does have a history of permanent atrial fibrillation on Eliquis. Continue Multaq Postop day 4 status post incisional hernia repair Has abdominal discomfort with distention. States has not had a bowel movement since surgery. KUB showing ileus abd ct pending Mixed hyperlipidemia On statin Gastroesophageal reflux disease Ppi DVT prophylaxis: Estefania Attending Dr. Durant Full code Quality Stroke Does the patient have a stroke diagnosis?: No VTE Prior VTE?: No VTE Risk Level:: Surgical - high VTE Device Contraindication: N/A - Device Ordered VTE Drug Contraindication: N/A - Med Ordered
[2024-05-19 09:47] LABS: Troponin-I High Sensitivity 16.2 ng/L (<3.5-17.0)
--- NOTE | 2024-05-19 09:50 | P.PNGS_ITS ---
Subjective Subjective Date of Service: 05/19/24 Interval history: Patient reports substernal chest pain this morning. She continues to have nausea with no bowel movement or flatus. Abdominal pain is okay. Physical Exam 2 Vital Signs: Vital Signs: Last Vital Signs Temp 97.9 F 05/19/24 06:59 Pulse 81 05/19/24 06:59 Resp 17 05/19/24 06:59 BP 132/61 05/19/24 06:59 Pulse Ox 92 05/19/24 06:59 O2 Del Method Room Air 05/19/24 06:59 BMI result Body Mass Index 29.0 Const: General: tired appearing Nutritional Appearance: well nourished O rientation/consciousness: patient oriented x3 Resp: Effort & Inspection: normal respiratory effort GI: Other: Midline incision is clean abdominal binder in place. Abdomen is otherwise soft with no palpable hernia with Valsalva maneuvers. Skin: Other: Warm, dry, no rash Neuro: General: patient oriented x3 Extrem: Other: Left upper extremity edema from IV. Objective Data Active Medications Albuterol Sulfate (Albuterol Sulfate 90 Mcg 8 Gm Inhaler) 2 puff INHALE RQ4H PRN PRN Reason: Shortness Of Breath Or Wheezing Apixaban (Apixaban 5 Mg Tablet) 5 mg PO BID [facility] Last Admin: 05/19/24 07:59 Dose: 5 mg Documented By: EVELYN Atorvastatin Calcium (Atorvastatin Calcium 10 Mg Tablet) 10 mg PO BEDTIME [facility] Last Admin: 05/18/24 19:45 Dose: 10 mg Documented By: JESUS Docusate Sodium (Docusate Sodium 100 Mg Capsule) 100 mg PO BID [facility] Last Admin: 05/19/24 08:01 Dose: Not Given Documented By: EVELYN Non-Admin Reason: Patient Refused Dronedarone (Dronedarone Hcl 400 Mg Tablet) 400 mg PO BID [facility] Last Admin: 05/19/24 07:58 Dose: 400 mg Documented By: EVELYN Ferrous Sulfate (Ferrous Sulfate 324 Mg Tablet.) 324 mg PO BID [facility] Last Admin: 05/19/24 08:05 Dose: Not Given Documented By: EVELYN Non-Admin Reason: Patient Refused Lactated Ringer's (Lr) 1,000 mls @ 80 mls/hr IVCONT .[id number] [facility] Last Admin: 05/19/24 02:34 Dose: 100 mls/hr Documented By: JESUS Acetaminophen (Ofirmev) 1,000 mg in 100 mls @ 400 mls/hr IV Q6H [facility] Last Infusion: 05/19/24 08:56 Dose: Infused Documented By: EVELYN Lactulose (Lactulose 20 Gm/30 Ml Solution) 10 gm PO BEDTIME [facility] Last Admin: 05/18/24 19:45 Dose: 10 gm Documented By: JESUS Loratadine (Loratadine 10 Mg Tablet) 10 mg PO BEDTIME [facility] Last Admin: 05/18/24 19:45 Dose: 10 mg Documented By: JESUS Meclizine HCl (Meclizine Hcl 25 Mg Tablet) 25 mg PO BID PRN PRN Reason: motion sickness Last Admin: 05/19/24 02:35 Dose: 25 mg Documented By: JESUS Melatonin (Melatonin 3 Mg Tablet) 6 mg PO BEDTIME PRN PRN Reason: To sleep Montelukast Sodium (Montelukast Sodium 10 Mg Tablet) 10 mg PO BEDTIME [facility] Last Admin: 05/18/24 19:44 Dose: 10 mg Documented By: JESUS Morphine Sulfate (Morphine Sulfate 4 Mg/Ml Cartridge) 3 mg IVPUSH Q3H PRN; Protocol PRN Reason: Pain, Severe (Pain Scale 7-10) Last Admin: 05/16/24 23:47 Dose: 3 mg Documented By: GILBERTO Omeprazole (Omeprazole 20 Mg Capsule.Dr) 20 mg PO DAILY@0630 [facility] Last Admin: 05/19/24 05:55 Dose: Not Given Documented By: JESUS Non-Admin Reason: Patient Refused Ondansetron HCl (Ondansetron Hcl 4 Mg/2 Ml Vial) 4 mg IVPUSH QID PRN PRN Reason: Nausea Last Admin: 05/19/24 02:35 Dose: 4 mg Documented By: JESUS Oxybutynin Chloride (Oxybutynin Chloride Er 5 Mg Tab.Er.24) 10 mg PO BEDTIME [facility] Last Admin: 05/18/24 19:44 Dose: 10 mg Documented By: JESUS Oxycodone HCl (Oxycodone Hcl Immed Release 5 Mg Tablet) 5 mg PO Q6H PRN PRN Reason: Pain, Moderate(Pain Scale 4-6) Last Admin: 05/18/24 19:45 Dose: 5 mg Documented By: JESUS Promethazine HCl (Promethazine Hcl 25 Mg/Ml Vial) 12.5 mg IM Q6H PRN PRN Reason: Nausea and Vomiting Last Admin: 05/19/24 02:13 Dose: 12.5 mg Documented By: JESUS Vitamin D (Cholecalciferol (Vitamin D3) 25 Mcg Tablet) 25 mcg PO BEDTIME [facility] Last Admin: 05/18/24 19:45 Dose: 25 mcg Documented By: JESUS Labs 05/18/24 08:26 Labs: Laboratory Results - last 24 hr 05/18/24 05/19/24 05/19/24 11:13 05:42 06:58 Hold Purple Top SEE NOTE POC Glucose 105 131 H Troponin I High Sens 15.9 D 05/19/24 09:00 Hold Purple Top POC Glucose Troponin I High Sens 16.2 Procedures Date of Service Date of Service: 05/19/24 Progress Note: A&P Assessment and plan (1) Incisional hernia: Status: Acute Plan 63-year-old female patient status post repair of a large incisional hernia with persistent nausea postoperatively. Abdominal x-ray revealed several loops of dilated small bowel with air-fluid levels. CT abdomen and pelvis confirms dilated stomach and small bowel with air-fluid levels suggestive of a delay of motility. Hernia repair is intact with expected subcutaneous air from prior surgery. Patient may require hyperalimentation if persistent delayed motility. Patient developed substernal chest pain. Appreciate hospitalist's input. Cardiology consultation requested. We will continue to monitor. Time Spent With Patient Time: Total time managing care of this patient today ____ minutes. Quality Stroke Does the patient have a stroke diagnosis?: No VTE Prior VTE?: No VTE Risk Level:: Surgical - high VTE Device Contraindication: N/A - Device Ordered VTE Drug Contraindication: N/A - Med Ordered
[2024-05-19 11:10] LABS: Glucose, Whole Blood 153 mg/dL (60-115)
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
[2024-05-19] MEDS: Melatonin 3 MG TABLET 6 MG PO (20:49)
[2024-05-19] MEDS: Docusate Sodium 100 MG CAPSULE PO (20:49)
[2024-05-19] MEDS: oxyBUTYnin chloride ER 5 MG TAB.ER.24 10 MG PO (20:49)
[2024-05-19] MEDS: Loratadine 10 MG TABLET PO (20:49)
[2024-05-19] MEDS: Ferrous Sulfate 324 MG TABLET.DR PO (20:49)
[2024-05-19] MEDS: Atorvastatin Calcium 10 MG TABLET PO (20:49)
[2024-05-19] MEDS: Montelukast Sodium 10 MG TABLET PO (20:49)
[2024-05-19] MEDS: Cholecalciferol (Vitamin D3) 25 MCG TABLET PO (20:49)
[2024-05-19] MEDS: Lactulose 20 GM/30 ML SOLUTION 10 GM PO (20:50)
[2024-05-20] MEDS: Lactated Ringers 1,000 ML 80 ML IVCONT ×2 (00:31→12:53)
[2024-05-20 02:46] VITALS: BP 124/55; PULSE 89; RESP 18; TEMP 36.7; O2SAT 96
[2024-05-20] MEDS: Acetaminophen 1,000 MG/100 ML PIGGYBACK 400 MG IV ×3 (06:03→21:09)
[2024-05-20] MEDS: Omeprazole 20 MG CAPSULE.DR PO (06:03)
--- NOTE | 2024-05-20 07:00 | CA_ITS ---
Transthoracic Echocardiogram Patient (Last, First, Middle): Jack Urrutia N Gender: Female Date of : 1960 Age: 63 Procedure Date: 05/20/2024 Procedure Type: Transthoracic Echocardiogram Location: S3E Height: 147.32 cm Weight: 62.6 kg BSA: 1.56 m2 Heart Rate: bpm BP: 124 / 55 mmHg Char Conveyor Tender: Referring MD: Jad Davison MD Symptoms: eleavted troponin Study Quality: Good ECG Rhythm: Sinus Conclusions: - The left ventricular systolic function is normal. The calculated ejection fraction is 68% by biplane method. - No obvious valvular pathology seen on this study. Findings Left Ventricle Normal left ventricular cavity size. There is mildly increased left ventricular wall thickness. The left ventricular systolic function is normal. The calculated ejection fraction is 68% by biplane method. There is no evidence of regional wall motion abnormalities. Diastolic function is normal for age. Right Ventricle Normal right ventricular cavity size and systolic function. Atria Both atria are normal in size. Aortic Valve There is a normal trileaflet aortic valve. There is no aortic valve stenosis. There is no aortic valve regurgitation. Mitral Valve The mitral valve appears normal. There is trace mitral valve regurgitation. There is no mitral valve stenosis. Pulmonic Valve The pulmonic valve is likely normal. Tricuspid Valve Normal tricuspid valve structure. There is trace tricuspid valve regurgitation. There is no evidence of pulmonary hypertension. Great Vessels The aortic annulus, sinuses of valsalva, and asc aorta are normal in size. Venous The inferior vena cava was not well visualized. Pericardium/Pleural Very small localized pericardial effusion over the right atrium. Prior Study Comparison Changes noted compared to prior study dated: 11/30/2022. Small pericardial effusion not described previously. Recommendations, Care & Conclusions No obvious valvular pathology seen on this study. Measurements 2D Linear Measurements IVSd: 1.14 0.6-0.9/0.6-1.0 cm LVIDd: 3.86 3.9-5.3/4.2-5.9 cm LVIDd Index: 2.47 2.4-3.2/2.2-3.1 cm/m2 LVIDs: 2.46 2.0-3.6 cm LVPWd: 1.02 0.7-1.1 cm Ao Root: 2.70 2.1-3.5 cm LA Diam: 3.80 2.7-3.8/3.0-4.0 cm LAIDs Index: 2.44 1.5-2.3 cm/m2 LV Mass: 167.08 67-162/88-224 g LV Mass Index: 107.10 43-95/49-115 g/m2 LVOT Diam: 1.90 3.0+(-)1.3 cm 2D Systolic Function EF 4C: 66.30 >55% EF 2C: 68.70 >55% EF BiP: 67.60 >55% Mitral Valve MV Pk E: 0.85 MV PK A: 0.75 MV Decel Time: 220.00 E/A: 1.10 E'Lateral: 9.03 E'Medial: 8.70 E/E' Med: 9.70 E/E' Lat: 9.40 PHT: 64.00 MVA PHT: 3.44 Decel Perry: 3.84 Aortic Valve AoV Pk Gurjit: 1.40 AoV Pk Grad: 8.00 LVOT LVOT Pk Gurjit: 0.96 LVOT Mn Gurjit: 0.59 LVOT VTI: 0.20 LVOT Pk Grad: 4.00 LVOT Mn Grad: 2.00 LVOT Diam: 1.90 LVOT Area: 2.84 Diastolic Function MV Pk E: 0.85 MV Pk A: 0.75 E/A: 1.10 E'Medial: 8.70 E/E' Med: 9.70 E' Laterial: 9.03 E/E' Lat: 9.40 Right Ventricle TAPSE (mm): 19.00 TVS' Gurjit: 15.00 Tricuspid Valve TR Pk Gurjit: 2.27 TR Pk Grad: 21.00 RA Press: 3.00 RVSP: 24.00 Great Vessels Aorta Ao Root-2D: 2.70 2.0-3.7 cm Pulmonary Valve PV Pk Gurjit: 1.29 Peak PV Grad: 7.00 Updated in Other Vendor System with Status of Final Andrew Grijalva MD electronically signed on 05/20/2024 11:08:57 AM with status of Final
[2024-05-20 07:53] VITALS: BP 104/51; PULSE 85; RESP 20; TEMP 36.1; O2SAT 96
--- NOTE | 2024-05-20 07:56 | P.PNGS_ITS ---
Subjective Subjective Date of Service: 05/20/24 <Lizbet Yee PA-C - Last Filed: 05/20/24 08:00> 05/20/24 <Parish Sanchez MD - Last Filed: 05/20/24 09:45> Interval history: Chest pain resolved. Had some mild nausea last night after taking all her meds but this resolved quickly. She would like clear liquids. Has not been OOB since Monday. Passing flatus, no BM yet. <Lizbet Yee PA-C - Last Filed: 05/20/24 08:00> Physical Exam 2 Vital Signs: Vital Signs: Last Vital Signs Temp 97.0 F 05/20/24 07:53 Pulse 85 05/20/24 07:53 Resp 20 05/20/24 07:53 BP 104/51 L 05/20/24 07:53 Pulse Ox 96 05/20/24 07:53 O2 Del Method Room Air 05/20/24 07:53 BMI result Body Mass Index 29.0 <Lizbet Yee PA-C - Last Filed: 05/20/24 08:00> Const: General: comfortable, no acute distress and alert <Lizbet Yee PA-C - Last Filed: 05/20/24 08:00> Orientation/consciousness: patient oriented x3 <ARMAND Basilio Last Filed: 05/20/24 08:00> Resp: Effort & Inspection: normal respiratory effort <Lizbet Yee PA-C - Last Filed: 05/20/24 08:00> Cardio: Rate: regular rate <Lizbet Yee PA-C - Last Filed: 05/20/24 08:00> GI: Inspection: Yes distended (softly, mildly improved ) and Yes incision (clean) <ARMAND Basilio Last Filed: 05/20/24 08:00> Palpation (GI): Soft to palpation, Tenderness to palpation present (GI) and no guarding <ARMAND Basilio Last Filed: 05/20/24 08:00> Percussion: Yes tympanic to percussion <ARMAND Basilio Last Filed: 05/20/24 08:00> Skin: General skin exam: no rashes or lesions noted <Lizbet Yee PA-C - Last Filed: 05/20/24 08:00> Neuro: General: patient oriented x3 and moves all extremities <Lizbet Yee PA-C - Last Filed: 05/20/24 08:00> Objective Data Active Medications Albuterol Sulfate (Albuterol Sulfate 90 Mcg 8 Gm Inhaler) 2 puff INHALE RQ4H PRN PRN Reason: Shortness Of Breath Or Wheezing Apixaban (Apixaban 5 Mg Tablet) 5 mg PO BID [facility] Last Admin: 05/19/24 20:49 Dose: 5 mg Documented By: JESUS Atorvastatin Calcium (Atorvastatin Calcium 10 Mg Tablet) 10 mg PO BEDTIME [facility] Last Admin: 05/19/24 20:49 Dose: 10 mg Documented By: JESUS Docusate Sodium (Docusate Sodium 100 Mg Capsule) 100 mg PO BID [facility] Last Admin: 05/19/24 20:49 Dose: 100 mg Documented By: JESUS Dronedarone (Dronedarone Hcl 400 Mg Tablet) 400 mg PO BID [facility] Last Admin: 05/19/24 20:49 Dose: 400 mg Documented By: JESUS Ferrous Sulfate (Ferrous Sulfate 324 Mg Tablet.Dr) 324 mg PO BID [facility] Last Admin: 05/19/24 20:49 Dose: 324 mg Documented By: JESUS Lactated Ringer's (Lr) 1,000 mls @ 80 mls/hr IVCONT .[id number] [facility] Last Admin: 05/20/24 00:31 Dose: 80 mls/hr Documented By: JESUS Acetaminophen (Ofirmev) 1,000 mg in 100 mls @ 400 mls/hr IV Q6H PRN PRN Reason: Pain, Mild (Pain Scale 1-3) Last Infusion: 05/20/24 07:10 Dose: Infused Documented By: COTBEKAH Lactulose (Lactulose 20 Gm/30 Ml Solution) 10 gm PO BEDTIME [facility] Last Admin: 05/19/24 20:50 Dose: 10 gm Documented By: JESUS Loratadine (Loratadine 10 Mg Tablet) 10 mg PO BEDTIME [facility] Last Admin: 05/19/24 20:49 Dose: 10 mg Documented By: JESUS Meclizine HCl (Meclizine Hcl 25 Mg Tablet) 25 mg PO BID PRN PRN Reason: motion sickness Last Admin: 05/19/24 20:49 Dose: 25 mg Documented By: JESUS Melatonin (Melatonin 3 Mg Tablet) 6 mg PO BEDTIME PRN PRN Reason: To sleep Last Admin: 05/19/24 20:49 Dose: 6 mg Documented By: JESUS Montelukast Sodium (Montelukast Sodium 10 Mg Tablet) 10 mg PO BEDTIME [facility] Last Admin: 05/19/24 20:49 Dose: 10 mg Documented By: JESUS Morphine Sulfate (Morphine Sulfate 4 Mg/Ml Cartridge) 3 mg IVPUSH Q3H PRN; Protocol PRN Reason: Pain, Severe (Pain Scale 7-10) Last Admin: 05/16/24 23:47 Dose: 3 mg Documented By: GILBERTO Omeprazole (Omeprazole 20 Mg Capsule.Dr) 20 mg PO DAILY@0630 [facility] Last Admin: 05/20/24 06:03 Dose: 20 mg Documented By: JESUS Ondansetron HCl (Ondansetron Hcl 4 Mg/2 Ml Vial) 4 mg IVPUSH QID PRN PRN Reason: Nausea Last Admin: 05/19/24 20:50 Dose: 4 mg Documented By: JESUS Oxybutynin Chloride (Oxybutynin Chloride Er 5 Mg Tab.Er.24) 10 mg PO BEDTIME [facility] Last Admin: 05/19/24 20:49 Dose: 10 mg Documented By: JESUS Oxycodone HCl (Oxycodone Hcl Immed Release 5 Mg Tablet) 5 mg PO Q6H PRN PRN Reason: Pain, Moderate(Pain Scale 4-6) Last Admin: 05/18/24 19:45 Dose: 5 mg Documented By: JESUS Promethazine HCl (Promethazine Hcl 25 Mg/Ml Vial) 12.5 mg IM Q6H PRN PRN Reason: Nausea and Vomiting Last Admin: 05/19/24 02:13 Dose: 12.5 mg Documented By: JESUS Vitamin D (Cholecalciferol (Vitamin D3) 25 Mcg Tablet) 25 mcg PO BEDTIME [facility] Last Admin: 05/19/24 20:49 Dose: 25 mcg Documented By: JESUS <Lizbet Yee PA-C - Last Filed: 05/20/24 08:00> Labs CBC & Chem 7: 05/18/24 08:26 <Lizbet Yee PA-C - Last Filed: 05/20/24 08:00> Labs: Laboratory Results - last 24 hr 05/19/24 05/19/24 09:00 11:01 POC Glucose 153 H Troponin I High Sens 16.2 <Lizbet Yee PA-C - Last Filed: 05/20/24 08:00> Procedures Date of Service Date of Service: 05/20/24 <Lizbet Yee PA-C - Last Filed: 05/20/24 08:00> 05/20/24 <Parish Sanchez MD - Last Filed: 05/20/24 09:45> Progress Note: A&P Assessment and plan (1) Incisional hernia: Status: Acute <Lizbet Yee PA-C - Last Filed: 05/20/24 08:00> Assessment and Plan: CT scan over the weekend consistent with an ileus. Began to pass flatus yesterday and feels improved. Will advance to clear liquids as tolerated. Encouraged OOB/ambulation. Avoid narcotics if possible. Home when tolerating solid diet, good GI function. Chest pain yesterday and atrial flutter with rapid ventricular response - seen by cardiology, most likely related to stress of surgery as well as withdrawal of her antiarrhythmic drug. Back in NSR. No further symptoms. No further intervetion. <Lizbet Yee PA-C - Last Filed: 05/20/24 08:00> CT scan over the weekend consistent with delayed peristasis post op. Began to pass flatus yesterday and feels improved. Will advance to clear liquids as tolerated. Encouraged OOB/ambulation. Avoid narcotics if possible. Home when tolerating solid diet, good GI function. Chest pain yesterday and atrial flutter with rapid ventricular response - seen by cardiology, most likely related to stress of surgery as well as withdrawal of her antiarrhythmic drug. Back in NSR. No further symptoms. No further intervetion. If patient has persistent nausea and vomiting, she may need NGT decompression and TPN. <Parish Sanchez MD - Last Filed: 05/20/24 09:45> Time Spent With Patient Time: Total time managing care of this patient today ____ minutes. <Lizbet Yee PA-C - Last Filed: 05/20/24 08:00> Quality Stroke Does the patient have a stroke diagnosis?: No <Lizbet Yee PA-C - Last Filed: 05/20/24 08:00> VTE Prior VTE?: No <Lizbet Yee PA-C - Last Filed: 05/20/24 08:00> VTE Risk Level:: Surgical - high <Lizbet Yee PA-C - Last Filed: 05/20/24 08:00> VTE Device Contraindication: N/A - Device Ordered <Lizbet Yee PA-C - Last Filed: 05/20/24 08:00> VTE Drug Contraindication: N/A - Med Ordered <Lizbet Yee PA-C - Last Filed: 05/20/24 08:00>
--- NOTE | 2024-05-20 08:20 | ECG_ITS ---
Test Reason : chest pain Blood Pressure : / mmHG Vent. Rate : 137 BPM Atrial Rate : 000 BPM P-R Int : 000 ms QRS Dur : 064 ms QT Int : 294 ms P-R-T Axes : 000 007 102 degrees QTc Int : 443 ms Atrial fibrillation with rapid ventricular response with premature ventricular or aberrantly conducted complexes Nonspecific ST and T wave abnormality Abnormal ECG When compared with ECG of 19-MAY-2024 05:17, Atrial fibrillation has replaced Atrial flutter Referred By: Parish Sanchez Electronically Signed By:BREONNA CAMPBELL
[2024-05-20] MEDS: Docusate Sodium 100 MG CAPSULE PO (08:30)
[2024-05-20] MEDS: Apixaban 5 MG TABLET PO ×2 (08:30→21:10)
[2024-05-20] MEDS: Dronedarone HCl 400 MG TABLET PO ×2 (08:30→21:10)
[2024-05-20] MEDS: Ferrous Sulfate 324 MG TABLET.DR PO (08:30)
[2024-05-20] MEDS: Meclizine HCl 25 MG TABLET PO ×2 (08:30→21:10)
--- NOTE | 2024-05-20 11:47 | MHC.CM.PN ---
Addendum entered by Shraddha Velez 05/20/24 11:48: PER PHYSICAL THERAPY NOTE, PT WILL ALSO NEED HOME PT REFERRAL MADE TO [facility] WHO ALSO PROVIDE HER PAPER DELIVERER SERVICES Original Note: PT NOT YET MEDICALLY CLEARED TO DC DCP REMAINS HOME WITH RESUMPTION OF SERVICES VIA [facility]
[2024-05-20 15:55] VITALS: BP 112/57; PULSE 92; RESP 18; TEMP 36.2; O2SAT 95
[2024-05-20 19:38] VITALS: BP 120/70; PULSE 87; RESP 18; TEMP 36.9; O2SAT 98
[2024-05-20] MEDS: Loratadine 10 MG TABLET PO (21:09)
[2024-05-20] MEDS: Cholecalciferol (Vitamin D3) 25 MCG TABLET PO (21:09)
[2024-05-20] MEDS: Montelukast Sodium 10 MG TABLET PO (21:10)
[2024-05-20] MEDS: oxyBUTYnin chloride ER 5 MG TAB.ER.24 10 MG PO (21:10)
[2024-05-20] MEDS: Atorvastatin Calcium 10 MG TABLET PO (21:10)
[2024-05-20] MEDS: Melatonin 3 MG TABLET 6 MG PO (21:10)
[2024-05-21] VITALS: BP 113/57; PULSE 85; RESP 16; TEMP 37; O2SAT 93
[2024-05-21] MEDS: Lactated Ringers 1,000 ML 80 ML IVCONT (02:01)
[2024-05-21] MEDS: Acetaminophen 1,000 MG/100 ML PIGGYBACK 400 MG IV ×3 (03:15→21:16)
[2024-05-21 04:00] VITALS: BP 108/55; PULSE 81; RESP 16; TEMP 36.4; O2SAT 94
[2024-05-21] MEDS: Omeprazole 20 MG CAPSULE.DR PO (05:21)
--- NOTE | 2024-05-21 07:33 | P.PNGS_ITS ---
Subjective Subjective Date of Service: 05/21/24 <Lizbet Yee PA-C - Last Filed: 05/21/24 07:35> 05/21/24 <Parish Sanchez MD - Last Filed: 05/21/24 07:58> Interval history: Feels improved this morning. Tolerated clear liquids yesterday. Nausea resolved. Passing flatus and had numerous loose BMs yesterday. Feels hungry and wants to eat. Ambulated the halls yesterday. <Lizbet Yee PA-C - Last Filed: 05/21/24 07:35> Physical Exam 2 Vital Signs: Vital Signs: Last Vital Signs Temp 97.6 F 05/21/24 04:00 Pulse 81 05/21/24 04:00 Resp 16 05/21/24 04:00 BP 108/55 L 05/21/24 04:00 Pulse Ox 94 05/21/24 04:00 O2 Del Method Room Air 05/21/24 04:00 BMI result Body Mass Index 29.0 <Lizbet Yee PA-C - Last Filed: 05/21/24 07:35> Const: General: comfortable, no acute distress and alert <Lizbet Yee PA-C - Last Filed: 05/21/24 07:35> Orientation/consciousness: patient oriented x3 <Lizbet Yee PA-C - Last Filed: 05/21/24 07:35> Resp: Effort & Inspection: normal respiratory effort <Lizbet Yee PA-C - Last Filed: 05/21/24 07:35> GI: Inspection: Yes distended (mild, improved ) and Yes incision (clean) < Lizbet Yee PA-C - Last Filed: 05/21/24 07:35> Palpation (GI): Soft to palpation, Tenderness to palpation present (GI) (mild incisional) and no guarding <ARMAND Basilio Last Filed: 05/21/24 07:35> Skin: General skin exam: no rashes or lesions noted <ARMAND Basilio Last Filed: 05/21/24 07:35> Neuro: General: patient oriented x3 <ARMAND Basilio Last Filed: 05/21/24 07:35> Objective Data Active Medications Albuterol Sulfate (Albuterol Sulfate 90 Mcg 8 Gm Inhaler) 2 puff INHALE RQ4H PRN PRN Reason: Shortness Of Breath Or Wheezing Apixaban (Apixaban 5 Mg Tablet) 5 mg PO BID [facility] Last Admin: 05/20/24 21:10 Dose: 5 mg Documented By: JESUS Atorvastatin Calcium (Atorvastatin Calcium 10 Mg Tablet) 10 mg PO BEDTIME [facility] Last Admin: 05/20/24 21:10 Dose: 10 mg Documented By: JESUS Docusate Sodium (Docusate Sodium 100 Mg Capsule) 100 mg PO BID [facility] Last Admin: 05/20/24 21:08 Dose: Not Given Documented By: JESUS Non-Admin Reason: Diarrhea x 3 Dronedarone (Dronedarone Hcl 400 Mg Tablet) 400 mg PO BID [facility] Last Admin: 05/20/24 21:10 Dose: 400 mg Documented By: JESUS Ferrous Sulfate (Ferrous Sulfate 324 Mg Tablet.Dr) 324 mg PO BID [facility] Last Admin: 05/20/24 21:07 Dose: Not Given Documented By: JESUS Non-Admin Reason: Patient Refused Acetaminophen (Ofirmev) 1,000 mg in 100 mls @ 400 mls/hr IV Q6H PRN PRN Reason: Pain, Mild (Pain Scale 1-3) Last Infusion: 05/21/24 03:32 Dose: Infused Documented By: JESUS Lactulose (Lactulose 20 Gm/30 Ml Solution) 10 gm PO BEDTIME [facility] Last Admin: 05/20/24 21:07 Dose: Not Given Documented By: JESUS Non-Admin Reason: Diarrhea x 3 Loratadine (Loratadine 10 Mg Tablet) 10 mg PO BEDTIME [facility] Last Admin: 05/20/24 21:09 Dose: 10 mg Documented By: JESUS Meclizine HCl (Meclizine Hcl 25 Mg Tablet) 25 mg PO BID PRN PRN Reason: motion sickness Last Admin: 05/20/24 21:10 Dose: 25 mg Documented By: JESUS Melatonin (Melatonin 3 Mg Tablet) 6 mg PO BEDTIME PRN PRN Reason: To sleep Last Admin: 05/20/24 21:10 Dose: 6 mg Documented By: JESUS Montelukast Sodium (Montelukast Sodium 10 Mg Tablet) 10 mg PO BEDTIME [facility] Last Admin: 05/20/24 21:10 Dose: 10 mg Documented By: JESUS Morphine Sulfate (Morphine Sulfate 4 Mg/Ml Cartridge) 3 mg IVPUSH Q3H PRN; Protocol PRN Reason: Pain, Severe (Pain Scale 7-10) Last Admin: 05/16/24 23:47 Dose: 3 mg Documented By: GILBETRO Omeprazole (Omeprazole 20 Mg Capsule.Dr) 20 mg PO DAILY@0630 [facility] Last Admin: 05/21/24 05:21 Dose: 20 mg Documented By: JESUS Ondansetron HCl (Ondansetron Hcl 4 Mg/2 Ml Vial) 4 mg IVPUSH QID PRN PRN Reason: Nausea Last Admin: 05/19/24 20:50 Dose: 4 mg Documented By: JESUS Oxybutynin Chloride (Oxybutynin Chloride Er 5 Mg Tab.Er.24) 10 mg PO BEDTIME [facility] Last Admin: 05/20/24 21:10 Dose: 10 mg Documented By: JESUS Oxycodone HCl (Oxycodone Hcl Immed Release 5 Mg Tablet) 5 mg PO Q6H PRN PRN Reason: Pain, Moderate(Pain Scale 4-6) Last Admin: 05/18/24 19:45 Dose: 5 mg Documented By: JESUS Promethazine HCl (Promethazine Hcl 25 Mg/Ml Vial) 12.5 mg IM Q6H PRN PRN Reason: Nausea and Vomiting Last Admin: 05/19/24 02:13 Dose: 12.5 mg Documented By: JESUS Vitamin D (Cholecalciferol (Vitamin D3) 25 Mcg Tablet) 25 mcg PO BEDTIME [facility] Last Admin: 05/20/24 21:09 Dose: 25 mcg Documented By: JESUS <Lizbet Yee PA-C - Last Filed: 05/21/24 07:35> Labs CBC & Chem 7: 05/18/24 08:26 <Lizbet Yee PA-C - Last Filed: 05/21/24 07:35> Procedures Date of Service Date of Service: 05/21/24 <Lizbet Yee PA-C - Last Filed: 05/21/24 07:35> 05/21/24 <Parish Sanchez MD - Last Filed: 05/21/24 07:58> Progress Note: A&P Assessment and plan (1) Incisional hernia: Status: Acute <Lizbet Yee PA-C - Last Filed: 05/21/24 07:35> Assessment and Plan: Clinically appearing well. Will advance to solid diet. If tolerating, possible dc later today. Patient comfortable with plan. Discussed with RN. < Lizbet Yee PA-C - Last Filed: 05/21/24 07:35> Clinically appearing well. Will advance to solid diet. If tolerating, possible dc later today. Patient comfortable with plan. Discussed with RN. Patient now much improved after starting to move her bowels. Still has some incisional pain which is controlled. Plan for discharge to home if diet as tolerated. <Parish Sanchez MD - Last Filed: 05/21/24 07:58> Time Spent With Patient Time: Total time managing care of this patient today ____ minutes. <Lizbet Yee PA-C - Last Filed: 05/21/24 07:35> Quality Stroke Does the patient have a stroke diagnosis?: No <Lizbet Yee PA-C - Last Filed: 05/21/24 07:35> VTE Prior VTE?: No <Lizbet Yee PA-C - Last Filed: 05/21/24 07:35> VTE Risk Level:: Surgical - high <Lizbet Yee PA-C - Last Filed: 05/21/24 07:35> VTE Device Contraindication: N/A - Device Ordered <Lizbet Yee PA-C - Last Filed: 05/21/24 07:35> VTE Drug Contraindication: N/A - Med Ordered <Lizbet Yee PA-C - Last Filed: 05/21/24 07:35>
[2024-05-21 07:38] VITALS: BP 114/58; PULSE 85; RESP 16; TEMP 36.2; O2SAT 97
[2024-05-21] MEDS: Dronedarone HCl 400 MG TABLET PO ×2 (07:52→21:20)
[2024-05-21] MEDS: Ferrous Sulfate 324 MG TABLET.DR PO ×2 (07:52→21:21)
[2024-05-21] MEDS: Apixaban 5 MG TABLET PO ×2 (07:52→21:20)
[2024-05-21] MEDS: Docusate Sodium 100 MG CAPSULE PO ×2 (07:52→21:20)
[2024-05-21 12:00] VITALS: BP 115/66; PULSE 84; TEMP 36.5; O2SAT 96
[2024-05-21 15:15] VITALS: BP 134/74; PULSE 94; RESP 18; TEMP 36.3; O2SAT 97
[2024-05-21 19:03] VITALS: BP 123/74; PULSE 109; RESP 18; TEMP 36.4; O2SAT 97
[2024-05-21] MEDS: Atorvastatin Calcium 10 MG TABLET PO (21:20)
[2024-05-21] MEDS: oxyBUTYnin chloride ER 5 MG TAB.ER.24 10 MG PO (21:20)
[2024-05-21] MEDS: Montelukast Sodium 10 MG TABLET PO (21:20)
[2024-05-21] MEDS: Loratadine 10 MG TABLET PO (21:21)
[2024-05-21] MEDS: Cholecalciferol (Vitamin D3) 25 MCG TABLET PO (21:21)
[2024-05-21] MEDS: ondansetron HCL 4 MG/2 ML VIAL IVPUSH (21:28)
[2024-05-21] MEDS: Melatonin 3 MG TABLET 6 MG PO (21:28)
[2024-05-22] VITALS (7 sets, daily range): BP systolic 116–131; BP diastolic 56–66; PULSE 76–91; RESP 16–18; TEMP 36–36.6; O2SAT 94–96
[2024-05-22] MEDS: Acetaminophen 1,000 MG/100 ML PIGGYBACK 400 MG IV ×4 (01:19→21:52)
--- NOTE | 2024-05-22 03:38 | PC.NURSE ---
Pt AOx3, able to make needs own, scheduled IV Tylenol administered (see MAR for administration). C/o pain in ABD midline from surgical incision. Pt in recliner for sleep, stated she's afraid of choking on own emesis. Call meza within reach. Chair alarm on.
[2024-05-22] MEDS: Omeprazole 20 MG CAPSULE.DR PO (05:35)
--- NOTE | 2024-05-22 08:12 | PM.PNGS ---
Subjective Subjective Date of Service: 05/22/24 <Lizbet Yee PA-C - Last Filed: 05/22/24 08:15> 05/22/24 <Parish Sanchez MD - Last Filed: 05/22/24 08:23> Interval history: Tolerating some solid intake. Nausea with some others. OOB and ambulated once. Passing flatus and had another BM yesterday. <Lizbet Yee PA-C - Last Filed: 05/22/24 08:15> Physical Exam Vital Signs: Vital Signs: Last Vital Signs Temp 97.1 F 05/22/24 07:34 Pulse 83 05/22/24 07:34 Resp 16 05/22/24 07:34 BP 120/56 L 05/22/24 07:34 Pulse Ox 94 05/22/24 07:34 O2 Del Method Room Air 05/22/24 07:34 BMI result Body Mass Index 29.0 <Lizbet Yee PA-C - Last Filed: 05/22/24 08:15> Const: General: comfortable, no acute distress and alert <Lizbet Yee PA-C - Last Filed: 05/22/24 08:15> Resp: Effort & Inspection: normal respiratory effort <Lizbet Yee PA-C - Last Filed: 05/22/24 08:15> GI: Inspection: Yes distended (mild, improved ) and No incision <Lizbet Yee PA-C - Last Filed: 05/22/24 08:15> Palpation (GI): Soft to palpation, nontender and no guarding <Lizbet Yee PA-C - Last Filed: 05/22/24 08:15> Skin: General skin exam: no rashes or lesions noted <ARMAND Basilio Last Filed: 05/22/24 08:15> Objective Data Active Medications Albuterol Sulfate (Albuterol Sulfate 90 Mcg 8 Gm Inhaler) 2 puff INHALE RQ4H PRN PRN Reason: Shortness Of Breath Or Wheezing Apixaban (Apixaban 5 Mg Tablet) 5 mg PO BID [facility] Last Admin: 05/21/24 21:20 Dose: 5 mg Documented By: GEORGE Atorvastatin Calcium (Atorvastatin Calcium 10 Mg Tablet) 10 mg PO BEDTIME [facility] Last Admin: 05/21/24 21:20 Dose: 10 mg Documented By: GEORGE Docusate Sodium (Docusate Sodium 100 Mg Capsule) 100 mg PO BID [facility] Last Admin: 05/21/24 21:20 Dose: 100 mg Documented By: GEORGE Dronedarone (Dronedarone Hcl 400 Mg Tablet) 400 mg PO BID [facility] Last Admin: 05/21/24 21:20 Dose: 400 mg Documented By: GEORGE Ferrous Sulfate (Ferrous Sulfate 324 Mg Tablet.) 324 mg PO BID [facility] Last Admin: 05/21/24 21:21 Dose: 324 mg Documented By: GEORGE Acetaminophen (Ofirmev) 1,000 mg in 100 mls @ 400 mls/hr IV Q6H [facility] Last Infusion: 05/22/24 01:50 Dose: Infused Documented By: GEORGE Lactulose (Lactulose 20 Gm/30 Ml Solution) 10 gm PO BEDTIME [facility] Last Admin: 05/21/24 21:22 Dose: Not Given Documented By: GEORGE Non-Admin Reason: Pt had BM today, pt declined Loratadine (Loratadine 10 Mg Tablet) 10 mg PO BEDTIME [facility] Last Admin: 05/21/24 21:21 Dose: 10 mg Documented By: GEORGE Meclizine HCl (Meclizine Hcl 25 Mg Tablet) 25 mg PO BID PRN PRN Reason: motion sickness Last Admin: 05/20/24 21:10 Dose: 25 mg Documented By: JESUS Melatonin (Melatonin 3 Mg Tablet) 6 mg PO BEDTIME PRN PRN Reason: To sleep Last Admin: 05/21/24 21:28 Dose: 6 mg Documented By: GEORGE Montelukast Sodium (Montelukast Sodium 10 Mg Tablet) 10 mg PO BEDTIME [facility] Last Admin: 05/21/24 21:20 Dose: 10 mg Documented By: GEORGE Morphine Sulfate (Morphine Sulfate 4 Mg/Ml Cartridge) 3 mg IVPUSH Q3H PRN; Protocol PRN Reason: Pain, Severe (Pain Scale 7-10) Last Admin: 05/16/24 23:47 Dose: 3 mg Documented By: GILBERTO Omeprazole (Omeprazole 20 Mg Capsule.) 20 mg PO DAILY@0630 [facility] Last Admin: 05/22/24 05:35 Dose: 20 mg Documented By: GEORGE Ondansetron HCl (Ondansetron Hcl 4 Mg/2 Ml Vial) 4 mg IVPUSH QID PRN PRN Reason: Nausea Last Admin: 05/21/24 21:28 Dose: 4 mg Documented By: GEORGE Oxybutynin Chloride (Oxybutynin Chloride Er 5 Mg Tab.Er.24) 10 mg PO BEDTIME [facility] Last Admin: 05/21/24 21:20 Dose: 10 mg Documented By: GEORGE Oxycodone HCl (Oxycodone Hcl Immed Release 5 Mg Tablet) 5 mg PO Q6H PRN PRN Reason: Pain, Moderate(Pain Scale 4-6) Last Admin: 05/18/24 19:45 Dose: 5 mg Documented By: JESUS Promethazine HCl (Promethazine Hcl 25 Mg/Ml Vial) 12.5 mg IM Q6H PRN PRN Reason: Nausea and Vomiting Last Admin: 05/19/24 02:13 Dose: 12.5 mg Documented By: JESUS Vitamin D (Cholecalciferol (Vitamin D3) 25 Mcg Tablet) 25 mcg PO BEDTIME [facility] Last Admin: 05/21/24 21:21 Dose: 25 mcg Documented By: GEORGE <Lizbet Yee PA-C - Last Filed: 05/22/24 08:15> Labs CBC & Chem 7: 05/18/24 08:26 <Lizbet Yee PA-C - Last Filed: 05/22/24 08:15> Procedures Date of Service Date of Service: 05/22/24 <Lizbet Yee PA-C - Last Filed: 05/22/24 08:15> 05/22/24 <Parish Sanchez MD - Last Filed: 05/22/24 08:23> Progress Note: A&P Assessment and plan (1) Incisional hernia: Status: Acute <Lizbet Yee PA-C - Last Filed: 05/22/24 08:15> Assessment and Plan: Encouraged small meals throughout the day. Encouraged OOB and ambulation of halls at least 3 times today. Abd overall benign with clean incision, distention improved. Plan home tomorrow if remains stable. <Lizbet Yee PA-C - Last Filed: 05/22/24 08:15> Encouraged small meals throughout the day. Encouraged OOB and ambulation of halls at least 3 times today. Abd overall benign with clean incision, distention improved. Plan home tomorrow if remains stable. Patient seen and examined; agree with the above assessment and plan. If does well today, plan home tomorrow. <Parish Sanchez MD - Last Filed: 05/22/24 08:23> Time Spent With Patient Time: Total time managing care of this patient today ____ minutes. <Lizbet Yee PA-C - Last Filed: 05/22/24 08:15> Quality Stroke Does the patient have a stroke diagnosis?: No <Lizbet Yee PA-C - Last Filed: 05/22/24 08:15> VTE Prior VTE?: No <Lizbet Yee PA-C - Last Filed: 05/22/24 08:15> VTE Risk Level:: Surgical - high <Lizbet Yee PA-C - Last Filed: 05/22/24 08:15> VTE Device Contraindication: N/A - Device Ordered <Lizbet Yee PA-C - Last Filed: 05/22/24 08:15> VTE Drug Contraindication: N/A - Med Ordered <Lizbet Yee PA-C - Last Filed: 05/22/24 08:15>
[2024-05-22] MEDS: Docusate Sodium 100 MG CAPSULE PO ×2 (08:56→21:58)
[2024-05-22] MEDS: Ferrous Sulfate 324 MG TABLET.DR PO ×2 (08:56→21:59)
[2024-05-22] MEDS: Dronedarone HCl 400 MG TABLET PO ×2 (08:56→22:00)
[2024-05-22] MEDS: Apixaban 5 MG TABLET PO ×2 (08:56→21:58)
--- NOTE | 2024-05-22 10:45 | MHC.CM.PN ---
Patient not medically cleared for dc at this time. CM will continue to follow.
[2024-05-22] MEDS: Lactulose 20 GM/30 ML SOLUTION 10 GM PO (21:57)
[2024-05-22] MEDS: Loratadine 10 MG TABLET PO (21:59)
[2024-05-22] MEDS: Montelukast Sodium 10 MG TABLET PO (21:59)
[2024-05-22] MEDS: Cholecalciferol (Vitamin D3) 25 MCG TABLET PO (21:59)
[2024-05-22] MEDS: Atorvastatin Calcium 10 MG TABLET PO (21:59)
[2024-05-22] MEDS: oxyBUTYnin chloride ER 5 MG TAB.ER.24 10 MG PO (22:00)
[2024-05-22] MEDS: Throat Lozenge, Medicated LOZENGE 1 LOZENGE MUCOUS MEM (22:20)
[2024-05-23] VITALS (7 sets, daily range): BP systolic 121–131; BP diastolic 58–74; PULSE 76–119; RESP 12–19; TEMP 35.8–36.3; O2SAT 95–97
--- NOTE | 2024-05-23 | ECG_ITS ---
Test Reason : rhythm check Blood Pressure : / mmHG Vent. Rate : 079 BPM Atrial Rate : 079 BPM P-R Int : 192 ms QRS Dur : 084 ms QT Int : 404 ms P-R-T Axes : 084 007 034 degrees QTc Int : 463 ms Normal sinus rhythm Normal ECG When compared with ECG of 19-MAY-2024 05:18, Sinus rhythm has replaced Atrial fibrillation Vent. rate has decreased BY 58 BPM Nonspecific T wave abnormality no longer evident in Lateral leads Referred By: Cholo Rodriguez Electronically Signed By:BREONNA CAMPBELL
[2024-05-23] MEDS: Acetaminophen 325 MG TABLET 975 MG PO ×4 (05:48→23:05)
[2024-05-23] MEDS: Omeprazole 20 MG CAPSULE.DR PO (05:48)
--- NOTE | 2024-05-23 06:26 | PM.EVENT ---
Event Note Date of Service: 05/23/24 Event Note: 6:05 AM - Contacted to notify patient has develiped rapid a-fib, HR is fluctuating between 130-140s. Blood pressure is 131/64. Patient evaluated. Denied chest pain, shortness of breath or palpitations. Cardiopulmonary exam is remarkable for irregular heart rate and tachycardia; lungs clear. ECG stat obtained and showed rapid a-fib without ischemic changes, heart rate 108 bpm. Will give metoprolol 5 mg IV X1 and give Multaq earlier this morning. Time Spent With Patient Time: Total time managing care of this patient today ____ minutes.
[2024-05-23] MEDS: Dronedarone HCl 400 MG TABLET PO ×2 (06:27→22:35)
[2024-05-23] MEDS: Metoprolol Tartrate 5 MG/5 ML VIAL IVPUSH (06:40)
--- NOTE | 2024-05-23 07:38 | PC.NURSE ---
Approximately around 06:00 this morning, pt cardiac rhythm via monitor went into A. fib, HR 130-140s. Earlier in shift, pt's cardiac rhythm was SR, HR 90s, occasional PVCs. During assessment pt AxOx4, asymptomatic,no c/o chest pain or SOB, just finished using bedside commode. MD Osman Dorantes notified of the change in pt's status. MD at bedside, EKG ordered. New IV #22 placed in R AC. One time dose of Metoprolol 5mg IV was ordered and HERBERT Multaq given earleir, see MAR. After administration of medication HR went down to 80-90s, A.fib. This RN gave report to oncoming RN. Will continue to monitor.
[2024-05-23] MEDS: Ferrous Sulfate 324 MG TABLET.DR PO ×2 (07:46→22:36)
[2024-05-23] MEDS: Docusate Sodium 100 MG CAPSULE PO ×2 (07:46→22:36)
[2024-05-23] MEDS: Apixaban 5 MG TABLET PO ×2 (07:46→22:35)
--- NOTE | 2024-05-23 09:11 | PM.PNGS ---
Subjective Subjective Date of Service: 05/23/24 Interval history: Episode of RVR early this morning. Converted back to sinus. Tolerating diet. Physical Exam Vital Signs: Vital Signs: Last Vital Signs Temp 96.4 F L 05/23/24 07:45 Pulse 76 05/23/24 07:45 Resp 12 05/23/24 07:45 BP 125/69 05/23/24 07:45 Pulse Ox 96 05/23/24 07:45 O2 Del Method Room Air 05/23/24 07:45 BMI result Body Mass Index 29.0 Const: General: comfortable, no acute distress and alert Orientation/consciousness: patient oriented x3 Resp: Effort & Inspection: normal respiratory effort Cardio: Rate: regular rate GI: Inspection: No distended and Yes incision (clean) Skin: General skin exam: no rashes or lesions noted Neuro: General: patient oriented x3 Objective Data Active Medications Acetaminophen (Acetaminophen 325 Mg Tablet) 975 mg PO Q6H [facility] Last Admin: 05/23/24 05:48 Dose: 975 mg Documented By: TESHA Albuterol Sulfate (Albuterol Sulfate 90 Mcg 8 Gm Inhaler) 2 puff INHALE RQ4H PRN PRN Reason: Shortness Of Breath Or Wheezing Apixaban (Apixaban 5 Mg Tablet) 5 mg PO BID [facility] Last Admin: 05/23/24 07:46 Dose: 5 mg Documented By: ANDRAE Atorvastatin Calcium (Atorvastatin Calcium 10 Mg Tablet) 10 mg PO BEDTIME [facility] Last Admin: 05/22/24 21:59 Dose: 10 mg Documented By: TESHA Benzocaine (Throat Lozenge, Medicated Lozenge) 1 lozenge MUCOUS MEM Q2H PRN PRN Reason: Sore Throat or cough Last Admin: 05/22/24 22:20 Dose: 1 lozenge Documented By: TESHA Docusate Sodium (Docusate Sodium 100 Mg Capsule) 100 mg PO BID [facility] Last Admin: 05/23/24 07:46 Dose: 100 mg Documented By: ANDRAE Dronedarone (Dronedarone Hcl 400 Mg Tablet) 400 mg PO BID [facility] Last Admin: 05/23/24 06:27 Dose: 400 mg Documented By: TESHA Comments: per MD Brewer give early due to change of HR A.fib Ferrous Sulfate (Ferrous Sulfate 324 Mg Tablet.) 324 mg PO BID [facility] Last Admin: 05/23/24 07:46 Dose: 324 mg Documented By: ANDRAE Lactulose (Lactulose 20 Gm/30 Ml Solution) 10 gm PO BEDTIME [facility] Last Admin: 05/22/24 21:57 Dose: 10 gm Documented By: TESHA Loratadine (Loratadine 10 Mg Tablet) 10 mg PO BEDTIME [facility] Last Admin: 05/22/24 21:59 Dose: 10 mg Documented By: TESHA Meclizine HCl (Meclizine Hcl 25 Mg Tablet) 25 mg PO BID PRN PRN Reason: motion sickness Last Admin: 05/20/24 21:10 Dose: 25 mg Documented By: JESUS Melatonin (Melatonin 3 Mg Tablet) 6 mg PO BEDTIME PRN PRN Reason: To sleep Last Admin: 05/21/24 21:28 Dose: 6 mg Documented By: GEORGE Montelukast Sodium (Montelukast Sodium 10 Mg Tablet) 10 mg PO BEDTIME [facility] Last Admin: 05/22/24 21:59 Dose: 10 mg Documented By: TESHA Morphine Sulfate (Morphine Sulfate 4 Mg/Ml Cartridge) 3 mg IVPUSH Q3H PRN; Protocol PRN Reason: Pain, Severe (Pain Scale 7-10) Last Admin: 05/16/24 23:47 Dose: 3 mg Documented By: GILBERTO Omeprazole (Omeprazole 20 Mg Capsule.) 20 mg PO DAILY@0630 [facility] Last Admin: 05/23/24 05:48 Dose: 20 mg Documented By: TESHA Ondansetron HCl (Ondansetron Hcl 4 Mg/2 Ml Vial) 4 mg IVPUSH QID PRN PRN Reason: Nausea Last Admin: 05/21/24 21:28 Dose: 4 mg Documented By: GEORGE Oxybutynin Chloride (Oxybutynin Chloride Er 5 Mg Tab.Er.24) 10 mg PO BEDTIME [facility] Last Admin: 05/22/24 22:00 Dose: 10 mg Documented By: TESHA Oxycodone HCl (Oxycodone Hcl Immed Release 5 Mg Tablet) 5 mg PO Q6H PRN PRN Reason: Pain, Moderate(Pain Scale 4-6) Last Admin: 05/18/24 19:45 Dose: 5 mg Documented By: JESUS Promethazine HCl (Promethazine Hcl 25 Mg/Ml Vial) 12.5 mg IM Q6H PRN PRN Reason: Nausea and Vomiting Last Admin: 05/19/24 02:13 Dose: 12.5 mg Documented By: JESUS Vitamin D (Cholecalciferol (Vitamin D3) 25 Mcg Tablet) 25 mcg PO BEDTIME [facility] Last Admin: 05/22/24 21:59 Dose: 25 mcg Documented By: TESHA Labs 05/18/24 08:26 Procedures Date of Service Date of Service: 05/23/24 Progress Note: A&P Assessment and plan (1) Incisional hernia: Status: Acute Plan Went into a fib with RVR, now in sinus. Hospitalists reconsulted, monitor today and stable for dc tomorrow if not tachycardic. Diet as tolerated, continue to increase activity. Time Spent With Patient Time: Total time managing care of this patient today ____ minutes. Quality Stroke Does the patient have a stroke diagnosis?: No VTE Prior VTE?: No VTE Risk Level:: Surgical - high VTE Device Contraindication: N/A - Device Ordered VTE Drug Contraindication: N/A - Med Ordered
[2024-05-23] MEDS: Promethazine HCL 25 MG/ML VIAL 12.5 MG IM (09:42)
--- NOTE | 2024-05-23 14:07 | HO.PM.IMPN ---
Subjective Subjective Date of Service: 05/23/24 Interval History: afib with rvr episode last night denies any chest pain or sob Review of Systems no new c/o Physical Exam Vital Signs: Vital Signs: Last Vital Signs Temp 96.6 F L 05/23/24 12:00 Pulse 82 05/23/24 12:00 Resp 14 05/23/24 12:00 BP 121/69 05/23/24 12:00 Pulse Ox 97 05/23/24 12:00 O2 Del Method Room Air 05/23/24 12:00 BMI result Body Mass Index 29.0 Appearance: Alert.? Oriented X3.es. cvs: rrr, [id number]. res: clear to auscultation ,no rhonchii . abd: no rebound or guarding ,nt, bs present. ext pulses present , no cyanosis . neuro: axo3 , nonfocal. Objective Data Active Medications Acetaminophen (Acetaminophen 325 Mg Tablet) 975 mg PO Q6H [facility] Last Admin: 05/23/24 13:28 Dose: 975 mg Documented By: ANDRAE Albuterol Sulfate (Albuterol Sulfate 90 Mcg 8 Gm Inhaler) 2 puff INHALE RQ4H PRN PRN Reason: Shortness Of Breath Or Wheezing Apixaban (Apixaban 5 Mg Tablet) 5 mg PO BID [facility] Last Admin: 05/23/24 07:46 Dose: 5 mg Documented By: ANDRAE Atorvastatin Calcium (Atorvastatin Calcium 10 Mg Tablet) 10 mg PO BEDTIME [facility] Last Admin: 05/22/24 21:59 Dose: 10 mg Documented By: TESHA Benzocaine (Throat Lozenge, Medicated Lozenge) 1 lozenge MUCOUS MEM Q2H PRN PRN Reason: Sore Throat or cough Last Admin: 05/22/24 22:20 Dose: 1 lozenge Documented By: TESHA Docusate Sodium (Docusate Sodium 100 Mg Capsule) 100 mg PO BID [facility] Last Admin: 05/23/24 07:46 Dose: 100 mg Documented By: ANDRAE Dronedarone (Dronedarone Hcl 400 Mg Tablet) 400 mg PO BID [facility] Last Admin: 05/23/24 06:27 Dose: 400 mg Documented By: TESHA Comments: per MD Brewer give early due to change of HR A.fib Ferrous Sulfate (Ferrous Sulfate 324 Mg Tablet.) 324 mg PO BID [facility] Last Admin: 05/23/24 07:46 Dose: 324 mg Documented By: ANDRAE Lactulose (Lactulose 20 Gm/30 Ml Solution) 10 gm PO BEDTIME [facility] Last Admin: 05/22/24 21:57 Dose: 10 gm Documented By: TESHA Loratadine (Loratadine 10 Mg Tablet) 10 mg PO BEDTIME [facility] Last Admin: 05/22/24 21:59 Dose: 10 mg Documented By: TESHA Meclizine HCl (Meclizine Hcl 25 Mg Tablet) 25 mg PO BID PRN PRN Reason: motion sickness Last Admin: 05/20/24 21:10 Dose: 25 mg Documented By: JESUS Melatonin (Melatonin 3 Mg Tablet) 6 mg PO BEDTIME PRN PRN Reason: To sleep Last Admin: 05/21/24 21:28 Dose: 6 mg Documented By: GEORGE Montelukast Sodium (Montelukast Sodium 10 Mg Tablet) 10 mg PO BEDTIME [facility] Last Admin: 05/22/24 21:59 Dose: 10 mg Documented By: TESHA Morphine Sulfate (Morphine Sulfate 4 Mg/Ml Cartridge) 3 mg IVPUSH Q3H PRN; Protocol PRN Reason: Pain, Severe (Pain Scale 7-10) Last Admin: 05/16/24 23:47 Dose: 3 mg Documented By: GILBERTO Omeprazole (Omeprazole 20 Mg Capsule.) 20 mg PO DAILY@0630 [facility] Last Admin: 05/23/24 05:48 Dose: 20 mg Documented By: TESHA Ondansetron HCl (Ondansetron Hcl 4 Mg/2 Ml Vial) 4 mg IVPUSH QID PRN PRN Reason: Nausea Last Admin: 05/21/24 21:28 Dose: 4 mg Documented By: GEORGE Oxybutynin Chloride (Oxybutynin Chloride Er 5 Mg Tab.Er.24) 10 mg PO BEDTIME [facility] Last Admin: 05/22/24 22:00 Dose: 10 mg Documented By: TESHA Oxycodone HCl (Oxycodone Hcl Immed Release 5 Mg Tablet) 5 mg PO Q6H PRN PRN Reason: Pain, Moderate(Pain Scale 4-6) Last Admin: 07/20/24 19:45 Dose: 5 mg Documented By: JESUS Promethazine HCl (Promethazine Hcl 25 Mg/Ml Vial) 12.5 mg IM Q6H PRN PRN Reason: Nausea and Vomiting Last Admin: 05/23/24 09:42 Dose: 12.5 mg Documented By: ANDRAE Vitamin D (Cholecalciferol (Vitamin D3) 25 Mcg Tablet) 25 mcg PO BEDTIME [facility] Last Admin: 05/22/24 21:59 Dose: 25 mcg Documented By: TESHA Labs 05/18/24 08:26 Assessment and Plan (1) Incisional hernia: Status: Acute Plan 63-year-old female with pertinent history of permanent atrial fibrillation on Eliquis, mixed hyperlipidemia, gastroesophageal reflux disease, neoplasm of gastrointestinal tract, history of carcinoid tumor who underwent large incisional hernia with mesh repair on 05/[address] Sanchez. Patient developed chest discomfort overnight and hospital medicine team consulted. Patient states she felt sudden onset of midsternal chest pain, nonradiating. No palpitations, shortness of breath, sweating. Patient was resting when this happened. episode of afib( has ch afib) given metoprolol iv x1 dose patient seems to be in nsr this morning asymptomatic continue eliquis/multaq ,tele monitering Postop day 4 status post incisional hernia repair Has abdominal discomfort with distention. States has not had a bowel movement since surgery. KUB showing ileus abd ct pending Mixed hyperlipidemia On statin Gastroesophageal reflux disease Ppi DVT prophylaxis: Eliquis Full code Quality Stroke Does the patient have a stroke diagnosis?: No VTE Prior VTE?: No VTE Risk Level:: Surgical - high VTE Device Contraindication: N/A - Device Ordered VTE Drug Contraindication: N/A - Med Ordered
[2024-05-23] MEDS: ondansetron HCL 4 MG/2 ML VIAL IVPUSH (22:31)
[2024-05-23] MEDS: Lactulose 20 GM/30 ML SOLUTION 10 GM PO (22:33)
[2024-05-23] MEDS: oxyBUTYnin chloride ER 5 MG TAB.ER.24 10 MG PO (22:34)
[2024-05-23] MEDS: Cholecalciferol (Vitamin D3) 25 MCG TABLET PO (22:36)
[2024-05-23] MEDS: Montelukast Sodium 10 MG TABLET PO (22:37)
[2024-05-23] MEDS: Loratadine 10 MG TABLET PO (22:37)
[2024-05-23] MEDS: Atorvastatin Calcium 10 MG TABLET PO (22:37)
[2024-05-24 02:41] VITALS: BP 134/68; PULSE 90; RESP 18; TEMP 36.1; O2SAT 96
[2024-05-24] MEDS: ondansetron HCL 4 MG/2 ML VIAL IVPUSH (06:37)
[2024-05-24] MEDS: Omeprazole 20 MG CAPSULE.DR PO (06:43)
[2024-05-24] MEDS: Acetaminophen 325 MG TABLET 975 MG PO (06:43)
[2024-05-24 06:46] VITALS: BP 125/65; PULSE 72; RESP 16; O2SAT 96
[2024-05-24 07:44] VITALS: BP 125/64; PULSE 72; RESP 14; TEMP 36.2; O2SAT 96
[2024-05-24] MEDS: Apixaban 5 MG TABLET PO (07:59)
[2024-05-24] MEDS: Docusate Sodium 100 MG CAPSULE PO (07:59)
[2024-05-24] MEDS: Ferrous Sulfate 324 MG TABLET.DR PO (07:59)
[2024-05-24] MEDS: Dronedarone HCl 400 MG TABLET PO (07:59)
--- NOTE | 2024-05-24 08:44 | PM.PNGS ---
Subjective Subjective Date of Service: 05/24/24 Interval history: Patient feels improved today, abdominal pain improved. Had a large bowel movement yesterday. Heart rate back to normal. Physical Exam Vital Signs: Vital Signs: Last Vital Signs Temp 97.1 F 05/24/24 07:44 Pulse 72 05/24/24 07:44 Resp 14 05/24/24 07:44 BP 125/64 05/24/24 07:44 Pulse Ox 96 05/24/24 07:44 O2 Del Method Room Air 05/24/24 07:44 BMI result Body Mass Index 29.0 Const: General: comfortable Nutritional Appearance: well nourished Orientation/consciousness: patient oriented x3 Resp: Effort & Inspection: normal respiratory effort, no audible wheezes, no cough and no respiratory distress GI: Inspection: Yes normal to inspection Palpation (GI): Soft to palpation, nontender, no guarding and not rigid Neuro: General: patient oriented x3 Extrem: General: No edema Objective Data Active Medications Acetaminophen (Acetaminophen 325 Mg Tablet) 975 mg PO Q6H [facility] Last Admin: 05/24/24 06:43 Dose: 975 mg Documented By: TESHA Albuterol Sulfate (Albuterol Sulfate 90 Mcg 8 Gm Inhaler) 2 puff INHALE RQ4H PRN PRN Reason: Shortness Of Breath Or Wheezing Apixaban (Apixaban 5 Mg Tablet) 5 mg PO BID [facility] Last Admin: 05/24/24 07:59 Dose: 5 mg Documented By: ANDRAE Atorvastatin Calcium (Atorvastatin Calcium 10 Mg Tablet) 10 mg PO BEDTIME [facility] Last Admin: 05/23/24 22:37 Dose: 10 mg Documented By: TESHA Benzocaine (Throat Lozenge, Medicated Lozenge) 1 lozenge MUCOUS MEM Q2H PRN PRN Reason: Sore Throat or cough Last Admin: 05/22/24 22:20 Dose: 1 lozenge Documented By: TESHA Docusate Sodium (Docusate Sodium 100 Mg Capsule) 100 mg PO BID [facility] Last Admin: 05/24/24 07:59 Dose: 100 mg Documented By: ANDRAE Dronedarone (Dronedarone Hcl 400 Mg Tablet) 400 mg PO BID [facility] Last Admin: 05/24/24 07:59 Dose: 400 mg Documented By: ANDRAE Ferrous Sulfate (Ferrous Sulfate 324 Mg Tablet.) 324 mg PO BID [facility] Last Admin: 05/24/24 07:59 Dose: 324 mg Documented By: ANDRAE Lactulose (Lactulose 20 Gm/30 Ml Solution) 10 gm PO BEDTIME [facility] Last Admin: 05/23/24 22:33 Dose: 10 gm Documented By: TESHA Loratadine (Loratadine 10 Mg Tablet) 10 mg PO BEDTIME [facility] Last Admin: 05/23/24 22:37 Dose: 10 mg Documented By: TESHA Meclizine HCl (Meclizine Hcl 25 Mg Tablet) 25 mg PO BID PRN PRN Reason: motion sickness Last Admin: 05/20/24 21:10 Dose: 25 mg Documented By: JESUS Melatonin (Melatonin 3 Mg Tablet) 6 mg PO BEDTIME PRN PRN Reason: To sleep Last Admin: 05/21/24 21:28 Dose: 6 mg Documented By: GEORGE Montelukast Sodium (Montelukast Sodium 10 Mg Tablet) 10 mg PO BEDTIME [facility] Last Admin: 05/23/24 22:37 Dose: 10 mg Documented By: TESHA Morphine Sulfate (Morphine Sulfate 4 Mg/Ml Cartridge) 3 mg IVPUSH Q3H PRN; Protocol PRN Reason: Pain, Severe (Pain Scale 7-10) Last Admin: 05/16/24 23:47 Dose: 3 mg Documented By: GILBERTO Omeprazole (Omeprazole 20 Mg Capsule.) 20 mg PO DAILY@0630 [facility] Last Admin: 05/24/24 06:43 Dose: 20 mg Documented By: TESHA Ondansetron HCl (Ondansetron Hcl 4 Mg/2 Ml Vial) 4 mg IVPUSH QID PRN PRN Reason: Nausea Last Admin: 05/24/24 06:37 Dose: 4 mg Documented By: TESHA Oxybutynin Chloride (Oxybutynin Chloride Er 5 Mg Tab.Er.24) 10 mg PO BEDTIME [facility] Last Admin: 05/23/24 22:34 Dose: 10 mg Documented By: TESHA Oxycodone HCl (Oxycodone Hcl Immed Release 5 Mg Tablet) 5 mg PO Q6H PRN PRN Reason: Pain, Moderate(Pain Scale 4-6) Last Admin: 05/18/24 19:45 Dose: 5 mg Documented By: JESUS Promethazine HCl (Promethazine Hcl 25 Mg/Ml Vial) 12.5 mg IM Q6H PRN PRN Reason: Nausea and Vomiting Last Admin: 05/23/24 09:42 Dose: 12.5 mg Documented By: ANDRAE Vitamin D (Cholecalciferol (Vitamin D3) 25 Mcg Tablet) 25 mcg PO BEDTIME [facility] Last Admin: 05/23/24 22:36 Dose: 25 mcg Documented By: TESHA Labs 05/18/24 08:26 Procedures Date of Service Date of Service: 05/24/24 Progress Note: A&P Assessment and plan (1) Incisional hernia: Status: Acute Plan 63-year-old female patient status post repair of a large incisional hernia with mesh, developed rapid AFib but has now resolved. Her abdomen is soft and nondistended, wounds are clean and intact. She will be discharged to home today with follow-up with the office in approximately 1 week. She should continue to avoid lifting greater than 10 lb. She may shower. Time Spent With Patient Time: Total time managing care of this patient today ____ minutes. Quality Stroke Does the patient have a stroke diagnosis?: No VTE Prior VTE?: No VTE Risk Level:: Surgical - high VTE Device Contraindication: N/A - Device Ordered VTE Drug Contraindication: N/A - Med Ordered
--- NOTE | 2024-05-24 09:12 | MHC.CM.PN ---
Patient medically cleared for dc home w/ resump of [employer] [facility] via [employer] and addition of [facility] services ([employer] unable to provide PT). [facility] learning support specialist Leena will provide transport 1230-1pm. RN aware. IMM delivered.
--- NOTE | 2024-05-24 10:55 | HO.PM.IMPN ---
Subjective Subjective Date of Service: 05/24/24 Interval History: hx of afib Review of Systems Patient denies any chest pain or shortness of breath or any new palpitations. Patient is currently in sinus rhythm Physical Exam Vital Signs: Vital Signs: Last Vital Signs Temp 97.1 F 05/24/24 07:44 Pulse 72 05/24/24 07:44 Resp 14 05/24/24 07:44 BP 125/64 05/24/24 07:44 Pulse Ox 96 05/24/24 07:44 O2 Del Method Room Air 05/24/24 07:44 BMI result Body Mass Index 29.0 Appearance: Alert.? Oriented X3 cvs: rrr, [id number]. res: clear to auscultation ,no rhonchii . abd: no rebound or guarding ,nt, bs present. ext pulses present , no cyanosis . neuro: axo3 , nonfocal. Objective Data Active Medications Acetaminophen (Acetaminophen 325 Mg Tablet) 975 mg PO Q6H [facility] Last Admin: 05/24/24 06:43 Dose: 975 mg Documented By: TESHA Albuterol Sulfate (Albuterol Sulfate 90 Mcg 8 Gm Inhaler) 2 puff INHALE RQ4H PRN PRN Reason: Shortness Of Breath Or Wheezing Apixaban (Apixaban 5 Mg Tablet) 5 mg PO BID [facility] Last Admin: 05/24/24 07:59 Dose: 5 mg Documented By: ANDRAE Atorvastatin Calcium (Atorvastatin Calcium 10 Mg Tablet) 10 mg PO BEDTIME [facility] Last Admin: 05/23/24 22:37 Dose: 10 mg Documented By: TESHA Benzocaine (Throat Lozenge, Medicated Lozenge) 1 lozenge MUCOUS MEM Q2H PRN PRN Reason: Sore Throat or cough Last Admin: 05/22/24 22:20 Dose: 1 lozenge Documented By: TESHA Docusate Sodium (Docusate Sodium 100 Mg Capsule) 100 mg PO BID [facility] Last Admin: 05/24/24 07:59 Dose: 100 mg Documented By: ANDRAE Dronedarone (Dronedarone Hcl 400 Mg Tablet) 400 mg PO BID [facility] Last Admin: 05/24/24 07:59 Dose: 400 mg Documented By: ANDRAE Ferrous Sulfate (Ferrous Sulfate 324 Mg Tablet.) 324 mg PO BID [facility] Last Admin: 05/24/24 07:59 Dose: 324 mg Documented By: ANDRAE Lactulose (Lactulose 20 Gm/30 Ml Solution) 10 gm PO BEDTIME [facility] Last Admin: 05/23/24 22:33 Dose: 10 gm Documented By: TESHA Loratadine (Loratadine 10 Mg Tablet) 10 mg PO BEDTIME [facility] Last Admin: 05/23/24 22:37 Dose: 10 mg Documented By: TESHA Meclizine HCl (Meclizine Hcl 25 Mg Tablet) 25 mg PO BID PRN PRN Reason: motion sickness Last Admin: 05/20/24 21:10 Dose: 25 mg Documented By: JESUS Melatonin (Melatonin 3 Mg Tablet) 6 mg PO BEDTIME PRN PRN Reason: To sleep Last Admin: 05/21/24 21:28 Dose: 6 mg Documented By: GEORGE Montelukast Sodium (Montelukast Sodium 10 Mg Tablet) 10 mg PO BEDTIME [facility] Last Admin: 05/23/24 22:37 Dose: 10 mg Documented By: TESHA Morphine Sulfate (Morphine Sulfate 4 Mg/Ml Cartridge) 3 mg IVPUSH Q3H PRN; Protocol PRN Reason: Pain, Severe (Pain Scale 7-10) Last Admin: 05/16/24 23:47 Dose: 3 mg Documented By: GILBERTO Omeprazole (Omeprazole 20 Mg Capsule.Dr) 20 mg PO DAILY@0630 [facility] Last Admin: 05/24/24 06:43 Dose: 20 mg Documented By: TESHA Ondansetron HCl (Ondansetron Hcl 4 Mg/2 Ml Vial) 4 mg IVPUSH QID PRN PRN Reason: Nausea Last Admin: 05/24/24 06:37 Dose: 4 mg Documented By: TESHA Oxybutynin Chloride (Oxybutynin Chloride Er 5 Mg Tab.Er.24) 10 mg PO BEDTIME [facility] Last Admin: 05/23/24 22:34 Dose: 10 mg Documented By: TESHA Oxycodone HCl (Oxycodone Hcl Immed Release 5 Mg Tablet) 5 mg PO Q6H PRN PRN Reason: Pain, Moderate(Pain Scale 4-6) Last Admin: 05/18/24 19:45 Dose: 5 mg Documented By: HO.PERUSSN Promethazine HCl (Promethazine Hcl 25 Mg/Ml Vial) 12.5 mg IM Q6H PRN PRN Reason: Nausea and Vomiting Last Admin: 05/23/24 09:42 Dose: 12.5 mg Documented By: ANDRAE Vitamin D (Cholecalciferol (Vitamin D3) 25 Mcg Tablet) 25 mcg PO BEDTIME [facility] Last Admin: 05/23/24 22:36 Dose: 25 mcg Documented By: TESHA Labs 05/18/24 08:26 Assessment and Plan (1) Incisional hernia: Status: Acute Plan 63-year-old female with pertinent history of permanent atrial fibrillation on Eliquis, mixed hyperlipidemia, gastroesophageal reflux disease, neoplasm of gastrointestinal tract, history of carcinoid tumor who underwent large incisional hernia with mesh repair on 05/[address] Sanchez. Patient developed chest discomfort overnight and hospital medicine team consulted. Patient states she felt sudden onset of midsternal chest pain, nonradiating. No palpitations, shortness of breath, sweating. Patient was resting when this happened. episode of afib( has ch afib)-likely postop. given metoprolol iv x1 dose tele and ekg nsr afterwards (since 05/23/24),asymptomatic continue eliquis/multaq Postop day 9 status post incisional hernia repair patient abd pain seems improving passing laine also had bm, no distension surgery following Mixed hyperlipidemia On statin Gastroesophageal reflux disease Ppi DVT prophylaxis: Eliquis Full code will singn off now -please call us if any questions. Quality Stroke Does the patient have a stroke diagnosis?: No VTE Prior VTE?: No VTE Risk Level:: Surgical - high VTE Device Contraindication: N/A - Device Ordered VTE Drug Contraindication: N/A - Med Ordered
[2024-05-24 12:00] VITALS: BP 127/74; PULSE 91; RESP 12; TEMP 36.1; O2SAT 96
--- NOTE | 2024-05-24 14:08 | P.F2F_ITS ---
Service Date Service Date: 05/24/24 Encounter Date of encounter: 05/24/24 Reasons for Services Signs and symptoms assessed: abdominal pain, PO intake, incision appearance Reason for senior care: postoperative assessment and/or care Homebound: Leaving the home is medically contraindicated at this time without the asist of a device and/or another person due th the listed conditions above and below. Reason homebound: weakness related to hospital stay and unable to drive Homebound supporting statement: Ms. Urrutia is s/p repair of large incisional hernia with mesh. She will need VNA services for post op assessment. Certification: Based on the above findings, I certify that this patient is confined to the home and needs intermittent senior care care, physical therapy and/or speech therapy, or continues to need occupational therapy. The patient is under my care, and I have initiated the establishment of the plan of care. The patient will be followed by a physician who will periodically review the plan of care. Time Spent With Patient Time: Total time managing care of this patient today ____ minutes.
--- NOTE | 2024-05-24 14:11 | P.DS_ITS ---
DS: Providers Provider Date of Service: 05/24/24 Date of admission: 05/16/24 15:54 Date of discharge: 05/24/24 Primary care physician: Patti Crabtree MD Attending physician on admission: Parish Sanchez Consults: 05/19/24 05:23 Consult to Hospitalist Stat Comment: Consulting Provider: Hospitalist Reason For Exam: new onset chest pain 05/19/24 06:51 Consult to Cardiology Routine Consulting Provider: [facility] Reason for consultation: Elevated troponin Has provider been notified: Yes 05/23/24 08:18 Consult to Hospitalist Routine Comment: Consulting Provider: Hospitalist Reason For Exam: Follow up, rapid afib Attending physician on discharge: Parish Sanchez DS: Diagnosis Discharge Diagnosis (1) Incisional hernia: Status: Acute DS: Summary Hospital Course Hospital Course: HPI AT ADMISSION: 63-year-old female patient with history of Hogan syndrome, carcinoid tumor, previous history of small-bowel obstruction, status post exploratory laparotomy, returning with a new incisional hernia in the upper abdomen. Hernias reducible with light pressure. HOSPITAL COURSE: On 05/15/24, repair of reducible incisional hernia with mesh was performed by Dr. Sanchez without complication. Defect measures approximately 9 cm in diameter and was repaired using a 14 x 11 cm Ventrio mesh. The patient tolerated the procedure well. She initially was doing well post operatively and her diet was advanced. She was ambulated. Her eliquis was resumed POD #2. She however developed nausea and vomiting which persisted for several days post operatively. Her GI function was delayed to return. Her activity was increased. She eventually began to pass flatus and have bowel movements. Her diet was slowly advanced. On the day of discharge she was tolerating a solid diet, had pain controlled on oral analgesics, had good GI function. She was ambulating without difficulty. Her abdomen was benign with a clean incision. She felt ready for discharge. She was discharged to home on 05/24/24 in stable condition. She is to follow up in the office in 1 week. She did develop two episodes of rapid A fib however converted back to sinus. Cardiology and hospitalists were consulted. This was deemed secondary to stress of surgery and no changes were made. She remained hemodynamically stable with controlled HR at discharge. Status at Discharge Functional status at discharge: independent ambulation Time Attestation Discharge Coordination Time (in mins): 40 Quality: Safe Use of Opioids Does Pt have an Active Cancer Diagnosis on the Problem List?: No Quality: Stroke Does the patient have a stroke diagnosis?: No Physical Exam Vital Signs: Vital Signs: Last Vital Signs Temp 97 F 05/24/24 12:00 Pulse 91 05/24/24 12:00 Resp 12 05/24/24 12:00 BP 127/74 05/24/24 12:00 Pulse Ox 96 05/24/24 12:00 O2 Del Method Room Air 05/24/24 12:00 BMI result Body Mass Index 29.0 Const: General: comfortable, no acute distress and alert Orientation/consciousness: patient oriented x3 Resp: Effort & Inspection: normal respiratory effort Cardio: Rate: regular rate GI: Inspection: No distended and Yes incision (clean, luther intact) Palpation (GI): Soft to palpation, nontender and no guarding Skin: General skin exam: no rashes or lesions noted Neuro: General: patient oriented x3 DS: Data Data Completed and Pending Completed studies during hospitalization [Text1]: 05/15/24 08:34 Surgical [PTH] Routine Hernia sac, incisional, herniorrhaphy: Fibromembranous tissue with mesothelial lining, focal fibroplasia, focal chronic inflammation, and attached hemorrhagic adipose tissue, consistent with hernia sac. Procedures Release Peritoneum, Open Approach (09/18/22) Discharge Plan Discharge Anticipated Discharge Date/Time: 05/21/24 15:17 Patient Disposition: Home Health Service Discharge Diagnosis: s/p repair of incisional hernia with mesh Referrals: [facility] [Outside] - 3-5 Days (resume [facility] services) [facility] [Outside] - 3-5 Days ([facility] will call you to schedule PT appointments) Patti Crabtree MD [Primary Care Provider] - 1 Week Parish Sanchez MD [Physician] - 1 Week Discharge Medications: New oxycodone 5 mg tablet 5 mg PO Q4H PRN (Reason: pain (scale score 7-10)) Qty: 20 0RF Rx Instructions: Partial Fill upon patient request. Continued dicyclomine 20 mg tablet 20 mg PO TID PRN (Reason: abdominal pain) 30 Days Qty: 60 0RF Hold Instructions: Resume on 09/21/22. ferrous sulfate 325 mg (65 mg iron) Tablet 325 mg PO BID Qty: 60 4RF Multaq 400 mg tablet 400 mg PO BID 90 Days Qty: 180 3RF Hold Instructions: Resume on 09/21/22. omeprazole 20 mg capsule,delayed release(DR/EC) 20 mg PO DAILY Qty: 90 2RF Hold Instructions: Resume on 09/21/22. melatonin 5 mg capsule 5 mg PO .qhs PRN (Reason: To sleep) 30 Days Qty: 90 3RF cholecalciferol (vitamin D3) 25 mcg (1,000 unit) capsule 1,000 unit PO BEDTIME Qty: 90 3RF Hold Instructions: Resume on 09/21/22. oxybutynin chloride 10 mg tablet extended release 24hr 10 mg PO BEDTIME Qty: 90 3RF Hold Instructions: Resume on 09/21/22. Eliquis 5 mg tablet 5 mg PO BID Qty: 180 3RF Hold Instructions: Resume on 11/19/22. Resume Eliquis on 11/19/22 loratadine 10 mg tablet 10 mg PO BEDTIME Qty: 90 3RF Hold Instructions: Resume on 09/21/22. meclizine 25 mg tablet 25 mg PO BID PRN (Reason: motion sickness) 90 Days Qty: 180 3RF Hold Instructions: Resume on 09/21/22. simvastatin 20 mg tablet 20 mg PO BEDTIME Qty: 90 1RF Hold Instructions: Resume on 09/21/22. montelukast 10 mg tablet 10 mg PO BEDTIME Qty: 90 1RF Hold Instructions: Resume on 09/21/22. tramadol 50 mg Tablet 10 mg PO BID PRN (Reason: Pain) docusate sodium [Colace] 100 mg capsule 100 mg PO BID Qty: 60 1RF lactulose 10 gram/15 mL solution 15 ml PO BEDTIME PRN (Reason: Constipation) albuterol sulfate 90 mcg/actuation HFA aerosol inhaler 2 puff INHALATION Q4-6H PRN (Reason: Shortness Of Breath Or Wheezing) Qty: 8.5 0RF Discharge Orders: Discharge Order (Routine); Ordered 05/24/24 Ordered By: Parish Sanchez Diet: Advance to usual diet Activity on Discharge: No heavy lifting Stand Alone Forms: Patient Portal Discharge page Print Language: Uzbek Activity Restrictions/Additional Instructions: If the incision area is tender, you may apply an ice pack for short intervals (No more than 20 minutes on, followed by at least 20 minutes off). Do not apply heat. Do not use creams, lotions, or topical antibiotics. These can cause infection or allergic reaction. Ok to shower. You have luther closing your incision and these will be removed approximately 10-14 days after surgery. NO HEAVY LIFTING (>10lbs) or strenuous activity. Wear your abdominal binder daily. Follow up in office. ([phone]) Call Your Doctor If: -Your temperature exceeds 101.5? F -You experience excessive pain or swelling -You have an unexpected reaction to medication -You have excessive bleeding -You experience continued vomiting/nausea -Your incision begins to separate -Your incision shows signs of infection such as increased redness, swelling, excessive pain, drainage (light blood or clear fluid is normal) or heat Care Plan Goals: Return to baseline health and resume normal activities following recovery period. Health Concerns: incisional hernia Plan of Treatment: s/p repair of incisional hernia with mesh f/u in office in 1 week home with services abdominal binder daily Assessment: Improved Discharge Date/Time: 05/24/24 13:30
== END 2024-05-24 13:30 | disposition home health service (06) | DRG 354 ==
LOC: HO.SSS 17:30 → HO.S3 17:37
PROVIDERS: Physician Assistant Surgical; Student in an Organized Health Care Education/Training Program; Admitting Provider Surgery; PCP Internal Medicine; Visit Provider Surgery
PROC: 0WUF0JZ Supplement Abdominal Wall with Synthetic Substitute, Open Approach (ICD-10-PCS; principal; 2024-05-15 07:30)
DX: K43.2 Incisional hernia without obstruction or gangrene (principal); I48.92 Unspecified atrial flutter; K56.7 Ileus, unspecified; I48.0 Paroxysmal atrial fibrillation; E78.2 Mixed hyperlipidemia; K21.9 Gastro-esophageal reflux disease without esophagitis; G89.18 Other acute postprocedural pain; Q96.9 Turner's syndrome, unspecified; Z79.01 Long term (current) use of anticoagulants; Z79.899 Other long term (current) drug therapy
CPT/HCPCS: 36415; 74018; 74177; 80048; 82947; 84484; 88302; 92950; 93005; 93306; 97161; C1781; J0131; J0665; J0690; J1100; J1885; J2270; J2405; J2550; J2704; J2795; J3010; J7120; Q9957; Q9967

== ENCOUNTER 2024-05-16 15:54 | Outpatient (BNV) | payer MEDICARE, MEDICAID, SELFPAY | END 2024-05-23 11:23 | PROVIDERS: Admitting Provider Surgery; PCP Internal Medicine; Visit Provider Internal Medicine | DX: I48.91 Unspecified atrial fibrillation (principal) | CPT/HCPCS: 93010 ==

== ENCOUNTER 2024-05-16 15:54 | Outpatient (BNV) | payer MEDICARE, MEDICAID, SELFPAY | END 2024-05-19 05:13 | PROVIDERS: Admitting Provider Surgery; PCP Internal Medicine; Visit Provider Internal Medicine Cardiovascular Disease | DX: R94.31 Abnormal electrocardiogram [ECG] [EKG] (principal) | CPT/HCPCS: 93010 ==

== ENCOUNTER → 2024-05-16 15:54 | Outpatient (BNV) | payer MEDICARE, MEDICAID, SELFPAY | PROVIDERS: Admitting Provider Surgery; PCP Internal Medicine; Visit Provider Internal Medicine Cardiovascular Disease | DX: I48.0 Paroxysmal atrial fibrillation (principal) | CPT/HCPCS: 99222 ==

== ENCOUNTER → 2024-05-16 15:54 | Outpatient (BNV) | payer MEDICARE, MEDICAID, SELFPAY | PROVIDERS: Admitting Provider Surgery; PCP Internal Medicine; Visit Provider Nurse Practitioner Acute Care | DX: K43.2 Incisional hernia without obstruction or gangrene (principal) | CPT/HCPCS: 99231; 99232; 99499 ==

== ENCOUNTER 2024-05-30 14:14 | Outpatient (AMB) | payer MEDICARE, MEDICAID, SELFPAY ==
--- NOTE | 2024-05-30 14:15 | MHC.OFFVIS ---
Vital Signs 05/30/24 14:28 Height 4 ft 10 in Weight 138 lb 14.259 oz BMI 29.0 BP 120/80 Blood Pressure Location Lt brachial Position Sitting Intake Visit Reasons: staple removal, Repair incisional hernia with mesh Intake Note: Patient is seen in office for post op assessment post incisional hernia repair. 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 She reports some skin irritation from the abdominal binder being placed too tight. She is unable to adjusted herself and has to wait for an aide to place it. [facility] Medical History History of COVID-19 COVID-19 vaccine administered Constipation Afib Overactive bladder Environmental allergies Neuroendocrine neoplasm of gastrointestinal tract Lipid disorder Colon polyp Gastric polyp Anemia Vitamin D deficiency Hyperlipemia Diabetes Arthritis IBS (irritable bowel syndrome) GERD (gastroesophageal reflux disease) Asthma Surgical History History of incisional hernia repair (05/15/24) Hx of resection of small bowel H/O exploratory laparotomy (09/20/22) History of colonoscopy History of esophagogastroduodenoscopy Family History Father Afib Pneumonia Brother Afib Heart disease Brother Heart disease Mother Unknown family medical history Social History Household Members: None Housing: Apartment Housing Other:: [facility] Are you a primary day care director to a significant other at home: No Do you presently have 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 or 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) Alcohol intake: never Comment: TAB alarm Patient Tobacco Use Status: Never used Tobacco e-Cigarette/Vaping Use: Never Used Second Hand Smoke Exposure: No Advance Directives Date on File: 12/01/21 service: No Current occupational status: disabled Cognitive needs: No Hearing needs: No Vision needs: Yes Physical Exam Vital Signs: Last Vital Signs BP 120/80 05/30/24 14:28 BMI result Body Mass Index 29.0 Const General: no acute distress Nutritional Appearance: well nourished Orientation/consciousness: patient oriented x3 Resp Effort & Inspection: normal respiratory effort GI Other: Midline incision is clean, dry, and intact. Luther removed and Steri-Strips applied. There is area of bruising from the abdominal binder noted lateral to the incision. I recommended stopping the abdominal binder Neuro General: patient oriented x3 Extrem Other: Bilateral pedal edema Assessment & Plan Assessment & Plan (1) Incisional hernia: Code(s): K43.2 - Incisional hernia without obstruction or gangrene Category: Medical Qualifiers: Obstruction and gangrene presence: without obstruction or gangrene Qualified Code(s): K43.2 - Incisional hernia without obstruction or gangrene (2) Gait instability: Code(s): R26.81 - Unsteadiness on feet Category: Medical Plan 63-year-old female patient status post repair of incisional hernia with mesh. Her wounds are clean, dry, and intact without redness or discharge. [place] removed and Steri-Strips applied. Patient may shower as normal. She does not need to wear the abdominal binder any further. I placed an order for physical therapy for home PT.. She will follow up in 1 month for final wound check. Orders: Orders PT Evaluation and Treatment Today K43.2 - Incisional hernia without obstruction or gangrene, R26.81 - Unsteadiness on feet Coding Level of Care Code Global (84585) Diagnoses Incisional hernia, without obstruction or gangrene K43.2 Obstruction and gangrene presence: without obstruction or gangrene Gait instability R26.81
[2024-05-30 14:28] VITALS: BP 120/80; BMI 29.0
== END 2024-05-30 14:37 | disposition home or self-care (01) ==
PROVIDERS: PCP Internal Medicine; Visit Provider Surgery
DX: K43.2 Incisional hernia without obstruction or gangrene (principal); R26.81 Unsteadiness on feet
CPT/HCPCS: 99212

== ENCOUNTER → 2024-05-30 14:14 | Outpatient (BNVA) | payer MEDICARE, MEDICAID, SELFPAY | PROVIDERS: PCP Internal Medicine; Visit Provider Surgery | DX: R26.81 Unsteadiness on feet (principal); Z48.02 Encounter for removal of sutures; Z87.19 Personal history of other diseases of the digestive system | CPT/HCPCS: 99212 ==

== ENCOUNTER 2024-06-04 13:11 | Outpatient (AMB) | payer MEDICARE, MEDICAID, SELFPAY ==
[2024-06-04 13:34] VITALS: BP 120/72; PULSE 86; O2SAT 98; BMI 26.6
--- NOTE | 2024-06-04 13:34 | MHC.PC.OV ---
Vital Signs 06/04/24 13:34 Height 4 ft 10 in Weight 127 lb 8 oz BMI 26.6 BP 120/72 Blood Pressure Location Rt brachial Position Sitting Pulse 86 Pulse Source Pulse Oximeter Pulse Oximetry (%) 98 Oxygen Delivery Method Room Air Intake Visit Reasons: Post Op f/u Allergies Chocolate Allergy (Mild, Verified 06/04/24 13:38) Rash environmental allergies Allergy (Mild, Verified 06/04/24 13:38) Itchy Eyes erythromycin base [Erythromycin Base] Adverse Reaction (Intermediate, Verified 06/04/24 13:38) GI UPSET ibuprofen [From Motrin] Adverse Reaction (Intermediate, Verified 06/04/24 13:38) Gastrointestinal Upset, increases pain Medication List - Last Reconciled 06/04/24 by Patti Crabtree MD albuterol sulfate 90 mcg/actuation 2 puffs inhalation Q4-6H PRN apixaban (Eliquis) 5 mg PO BID cholecalciferol (vitamin D3) 1,000 units PO BEDTIME dicyclomine 20 mg PO TID PRN 30 days docusate sodium (Colace) 100 mg PO BID dronedarone (Multaq) 400 mg PO BID 90 days ferrous sulfate 325 mg PO BID lactulose 15 mL PO BEDTIME PRN loratadine 10 mg PO BEDTIME meclizine 25 mg PO BID PRN 90 days melatonin 5 mg PO .qhs PRN 30 days montelukast 10 mg PO BEDTIME omeprazole 20 mg PO DAILY oxybutynin chloride ER 10 mg PO BEDTIME simvastatin 20 mg PO BEDTIME Tobacco use date assessed: 06/04/24 Fall risk assessment: No Falls in past year Last assessed Fall Risk: 06/04/24 Dental Screening Dental Screen Date: 06/04/24 Did you have a dental visit in the last 12 months?: No Did you have a dental problem in the last 6 months where you did not have access to dental care?: No Was dental information given to patient?: No HPI Post Op f/u HPI Details Patient is 63-year-old female with a history of Hogan syndrome, carcinoid tumor, previous history of small-bowel obstruction, status post exploratory laparotomy, had surgery for incisional hernia 05/15/2024. She had a repair of reducible incisional hernia with mesh placement by Dr. Sanchez without complication Defect was 9 cm in diameter and was repaired with 14 x 11 cm Ventrio mesh. Initially patient did well but then developed nausea and vomiting postoperatively which persisted 4 days Her physical activity was increased and then she was able to pass flatus and have bowel movements. Her diet was slowly advanced. Eventually patient was discharged home with few tablets oxycodone for pain She came in today for post discharge follow-up appointment Patient is doing well, she is moving her bowels eating Nausea no vomiting She did developed rash on her abdomen due to wrapping Which is also getting better and is no longer painful. No signs of infection She has already had appointment with Dr. Sanchez and has another appointment coming up in a week [place] are out, incision wound is healing well. Patient have Steri-Strips on [facility] Medical History (Updated 06/04/24 @ 13:59 by Patti Crabtree MD) History of COVID-19 COVID-19 vaccine administered Constipation Afib Overactive bladder Environmental allergies Neuroendocrine neoplasm of gastrointestinal tract Lipid disorder Colon polyp Gastric polyp Anemia Vitamin D deficiency Hyperlipemia Diabetes Arthritis IBS (irritable bowel syndrome) GERD (gastroesophageal reflux disease) Asthma Surgical History (Updated 06/04/24 @ 13:59 by Patti Crabtree MD) History of incisional hernia repair (05/15/24) Hx of resection of small bowel H/O exploratory laparotomy (09/20/22) History of colonoscopy History of esophagogastroduodenoscopy Family History Father Afib Pneumonia Brother Afib Heart disease Brother Heart disease Mother Unknown family medical history Social History Household Members: None Housing: Apartment Housing Other:: [facility] Are you a primary home care coordinator to a significant other at home: No Do you presently have 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 or 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 1. Little interest or pleasure in doing things: not at all 2. Feeling down, depressed, or hopeless: not at all 3. Trouble falling or staying asleep, or sleeping too much: more than half the days 4. Feeling tired or having little energy: more than half the days 5. Poor appetite or overeating: not at all 6. Feeling bad about yourself - or that you are a failure or have let yourself or your family down: not at all 7. Trouble concentrating on things, such as reading the newspaper or watching television: not at all 8. Moving or speaking so slowly that other people could have noticed. Or the opposite - being so fidgety or restless that you have been moving around a lot more than usual: not at all 9. Thoughts that you would be better off or of hurting yourself in some way: not at all Total score: 4 Depression Screening Interpretation: Negative Depression Screening Done: Yes 37459 - PHQ-9 Billing: Yes Source: Developed by Drs. Teodoro Young, Glenna Jimenez, Ayo Ramesh and colleagues, with an educational manuel from [employer]. Thrive Questionnaire Date Thrive assessed: 06/04/24 I am a: Patient What is your living situation today?: I have a steady place to live Within the past 12 months, did the food you bought not last and you didn't have the money to get more?: Never true Within the past 12 months, did you worry whether your food would run out before you got money to buy more?: Never true Do you have trouble paying for medicines?: No Do you have trouble getting transportation to medical appointments?: No Do you have trouble paying your heating and electricity bill?: No Do you have trouble taking care of your child, family member or friend?: No Do you have trouble with day-to-day activities such as bathing, preparing meals, shopping, managing finances, etc.?: No Are you currently unemployed and looking for a job?: No Are you interested in more education?: No Please select the resources that you would like help with: Housing/Fci Currently or been in a relationship where the following occur: No concerns reported THRIVE Score: 0 AUDIT C Alcohol Use Questionnaire (AUDIT-C) 1. How often do you have a drink containing alcohol?: Never 3. How often do you have six or more drinks on one occasion?: Never Total Score: 0 Score Reviewed/Action Taken: Yes LYLE-7 AMB Questionnaire LYLE-7 Date LYLE - 7 assessed: 06/04/24 Feeling nervous, anxious, or on edge: 0 = Not at all Not being able to stop or control worryin = Not at all Worrying too much about different things: 0 = Not at all Trouble relaxin = Several days Being so restless that it is hard to sit still: 0 = Not at all Becoming easily annoyed or irritable: 0 = Not at all Feeling afraid as if something awful might happen: 0 = Not at all Total LYLE-7 score (0-4 normal; 5-9 mild; 10-14 moderate; 15-21 severe): 1 Source: Developed by Drs. Teodoro Young, Glenna Jimenez, Ayo Ramesh and colleagues, with an educational manuel from [employer]. LYLE-7 Assessment Billing LYLE-7 Assessment Tool: LYLE-7 Assessment 60485 Review of Systems Const Denies chills and Denies fever(s) ENT Denies epistaxis and Denies nasal discharge Card Denies chest pain Resp Denies chest congestion, Denies cough and Denies hemoptysis Skin/Breast Denies rash Neuro Reports no additional complaints Psych Reports no additional complaints Endo Reports no additional complaints Physical exam (Primary Care) Vital Signs: Last Vital Signs Pulse 86 06/04/24 13:34 BP 120/72 06/04/24 13:34 Pulse Ox 98 06/04/24 13:34 Oxygen Delivery Method Room Air 06/04/24 13:34 BMI result Body Mass Index 26.6 Tobacco/Smoking Status: Tobacco use Status Tobacco use date assessed 06/04/24 06/04/24 13:39 Patient Tobacco Use Status Never used Tobacco 06/04/24 13:39 e-Cigarette/Vaping Use Never Used 06/04/24 13:39 PHQ-9: PHQ-9 Score PHQ-9: Total score 4 06/04/24 13:39 Depression Screening Interpretation: Negative Thrive Assessment: Date of Thrive Assessment Date Thrive assessed 06/04/24 06/04/24 13:39 Currently or been in a relationship where the following occur: No concerns reported Const General: cooperative, comfortable and no acute distress Orientation/consciousness: patient oriented x3 HENNJ Head: Yes normocephalic Eyes General: appearance normal, both eyes and all related structures Neck Neck: Yes supple Resp Effort & Inspection: normal respiratory effort, no cough and no stridor Cardio Rhythm: regular rhythm Heart sounds: S1 normal heart sound present and S2 normal heart sound present GI Abdomen image: 1. Steri-Strips on, mood is healing well, abdomen is nontender bowel sound positive dose superficial palpation, some sensitivities there with deep palpation 2. Superficial excoriated rash, healing well no signs of infection Skin General skin exam: turgor normal Neuro General: patient oriented x3, tone normal and moves all extremities Extrem Right lower extremity: no edema Left lower extremity: no edema Assessment and Plan Assessment & Plan (1) Hospital discharge follow-up: Code(s): Z09 - Encounter for follow-up examination after completed treatment for conditions other than malignant neoplasm (2) History of incisional hernia repair: Onset Date: 05/15/24 Comment: Reducible with mesh- Parish Sanchez MD Code(s): Z98.890 - Other specified postprocedural states; Z87.19 - Personal history of other diseases of the digestive system (3) Rash: Code(s): R21 - Rash and other nonspecific skin eruption (4) Diet-controlled type 2 diabetes mellitus: Code(s): E11.9 - Type 2 diabetes mellitus without complications Plan Patient is 63-year-old female with a history of Hogan syndrome, carcinoid tumor, previous history of small-bowel obstruction, status post exploratory laparotomy, had surgery for incisional hernia 05/15/2024. She had a repair of reducible incisional hernia with mesh placement by Dr. Sanchez without complication Defect was 9 cm in diameter and was repaired with 14 x 11 cm Ventrio mesh. Initially patient did well but then developed nausea and vomiting postoperatively which persisted 4 days Her physical activity was increased and then she was able to pass flatus and have bowel movements. Her diet was slowly advanced. Eventually patient was discharged home with few tablets oxycodone for pain She came in today for post discharge follow-up appointment Patient is doing well, she is moving her bowels, eating Nausea no vomiting She did developed rash on her abdomen due to wrapping Which is also getting better and is no longer painful. No signs of infection She has already had appointment with Dr. Sanchez and has another appointment coming up in a week [place] are out, incision wound is healing well. Patient have Steri-Strips on Patient is not taking only Tylenol as needed which is rare Coding Level of Care Code Est Pt Level 4 (55173) Diagnoses Hospital discharge follow-up Z09 History of incisional hernia repair Z98.890; Z87.19 Rash R21 Diet-controlled type 2 diabetes mellitus E11.9 Additional Codes LYLE-7 Assessment Billing - LYLE-7 Assessment Tool: LYLE-7 Assessment 72431 ([id number])
== END 2024-06-04 14:02 | disposition home or self-care (01) ==
PROVIDERS: PCP Internal Medicine; Visit Provider Internal Medicine
DX: R21 Rash and other nonspecific skin eruption (principal); E11.9 Type 2 diabetes mellitus without complications; Z09 Encounter for follow-up examination after completed treatment for conditions other than malignant neoplasm; Z98.890 Other specified postprocedural states; Z87.19 Personal history of other diseases of the digestive system
CPT/HCPCS: 99214

== ENCOUNTER 2024-06-27 12:40 | Outpatient (AMB) | payer MEDICARE, MEDICAID, SELFPAY ==
[2024-06-27 13:09] VITALS: BMI 26.4
--- NOTE | 2024-06-27 13:09 | A.OFFVIS_ITS ---
Vital Signs 06/27/24 13:09 Height 4 ft 10 in Weight 126 lb 5.198 oz BMI 26.4 Intake Visit Reasons: 1 month follow up Repair incisional hernia Intake Note: Patient is seen in office for one month follow up visit, post incisional hernia repair. Pt c/o; reports no complaints. Derrick Boat Runner Required: No Accompanied by: Other Relationship Allergies Chocolate Allergy (Mild, Verified 06/27/24 13:16) Rash environmental allergies Allergy (Mild, Verified 06/27/24 13:16) Itchy Eyes erythromycin base [Erythromycin Base] Adverse Reaction (Intermediate, Verified 06/27/24 13:16) GI UPSET ibuprofen [From Motrin] Adverse Reaction (Intermediate, Verified 06/27/24 13:16) Gastrointestinal Upset, increases pain Medication List - Last Reconciled 06/27/24 by Jose Elias Marie MD albuterol sulfate 90 mcg/actuation 2 puffs inhalation Q4-6H PRN apixaban (Eliquis) 5 mg PO BID cholecalciferol (vitamin D3) 1,000 units PO BEDTIME dicyclomine 20 mg PO TID PRN 30 days docusate sodium (Colace) 100 mg PO BID dronedarone (Multaq) 400 mg PO BID 90 days ferrous sulfate 325 mg PO BID lactulose 15 mL PO BEDTIME PRN loratadine 10 mg PO BEDTIME meclizine 25 mg PO BID PRN 90 days melatonin 5 mg PO .qhs PRN 30 days montelukast 10 mg PO BEDTIME omeprazole 20 mg PO DAILY oxybutynin chloride ER 10 mg PO BEDTIME simvastatin 20 mg PO BEDTIME HPI Comments Details: Patient was postop. She presents with her resident surgeon. Patient is doing well. She is tolerating a diet. Having regular bowel habits. She is quite active, and has resumed bowling. I am seeing her because after Jolantaberny is in the operating detained. [facility] Medical History History of COVID-19 COVID-19 vaccine administered Constipation Afib Overactive bladder Environmental allergies Neuroendocrine neoplasm of gastrointestinal tract Lipid disorder Colon polyp Gastric polyp Anemia Vitamin D deficiency Hyperlipemia Diabetes Arthritis IBS (irritable bowel syndrome) GERD (gastroesophageal reflux disease) Asthma Surgical History History of incisional hernia repair (05/15/24) Hx of resection of small bowel H/O exploratory laparotomy (09/20/22) History of colonoscopy History of esophagogastroduodenoscopy Family History Father Afib Pneumonia Brother Afib Heart disease Brother Heart disease Mother Unknown family medical history Social History Household Members: None Housing: Apartment Housing Other:: mental health association [facility] Are you a primary acute care occupational therapist to a significant other at home: No Do you presently have 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 or 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 Incision clean dry intact healing very well Assessment & Plan Assessment & Plan (1) Postop check: Code(s): Z09 - Encounter for follow-up examination after completed treatment for conditions other than malignant neoplasm Category: Medical Plan Patient was been given local instructions including avoiding strenuous activities for next few weeks time and will otherwise follow-up p.r.n.. All questions answered. Follow up office visit noted and appreciated. Coding Level of Care Code Global (53733) Diagnoses Postop check Z09
== END 2024-06-27 13:34 | disposition home or self-care (01) ==
PROVIDERS: PCP Internal Medicine; Visit Provider Surgery
DX: K43.2 Incisional hernia without obstruction or gangrene (principal); Z09 Encounter for follow-up examination after completed treatment for conditions other than malignant neoplasm
CPT/HCPCS: 99212

== ENCOUNTER → 2024-06-27 12:40 | Outpatient (BNVA) | payer MEDICARE, MEDICAID, SELFPAY | PROVIDERS: PCP Internal Medicine; Visit Provider Surgery | DX: Z09 Encounter for follow-up examination after completed treatment for conditions other than malignant neoplasm (principal); Z98.890 Other specified postprocedural states | CPT/HCPCS: 99212 ==

== ENCOUNTER 2024-08-07 12:20 | Outpatient (AMB) | payer MEDICARE, MEDICAID, SELFPAY ==
--- NOTE | 2024-08-07 12:54 | MHC.OFFWIV ---
Intake Vital Signs 08/07/24 12:59 Height 4 ft 10 in Weight 125 lb 6 oz BMI 26.2 BP 130/84 Blood Pressure Location Lt brachial Position Sitting Pulse 79 Pulse Source Pulse Oximeter Pulse Oximetry (%) 98 Oxygen Delivery Method Room Air Intake Visit Reasons: EP-f/up Covid, missed 12pm appt dr Mcknight Intake Note: Patient here to f/u after having covid, she states she is feeling better but still has the cough present. Patient Tobacco Use Status: Never used Tobacco Allergies Chocolate Allergy (Mild, Verified 08/07/24 12:59) Rash environmental allergies Allergy (Mild, Verified 08/07/24 12:59) Itchy Eyes erythromycin base [Erythromycin Base] Adverse Reaction (Intermediate, Verified 08/07/24 12:59) GI UPSET ibuprofen [From Motrin] Adverse Reaction (Intermediate, Verified 08/07/24 12:59) Gastrointestinal Upset, increases pain Do you need a note to return to daycare/school/sports/work: No HPI HPI Comments History of Present Illness Details Is a 64-year-old female complaining of lingering cough after having COVID. 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 She states that she was diagnosed with COVID on July 26 and use [id number] medications to feel better. She states she is feeling better overall but she has a lingering dry cough. She denies any shortness of breath, trouble breathing, headaches, sinus pain or ear pain. [facility] Medical History History of COVID-19 COVID-19 vaccine administered Constipation Afib Overactive bladder Environmental allergies Neuroendocrine neoplasm of gastrointestinal tract Lipid disorder Colon polyp Gastric polyp Anemia Vitamin D deficiency Hyperlipemia Diabetes Arthritis IBS (irritable bowel syndrome) GERD (gastroesophageal reflux disease) Asthma Surgical History History of incisional hernia repair (05/15/24) Hx of resection of small bowel H/O exploratory laparotomy (09/20/22) History of colonoscopy History of esophagogastroduodenoscopy Family History Father Afib Pneumonia Brother Afib Heart disease Brother Heart disease Mother Unknown family medical history Social History Household Members: None Housing: Apartment Housing Other:: mental health association [facility] Are you a primary home health aide caregiver to a significant other at home: No Do you presently have 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 or 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 (LABELER) Alcohol intake: never Comment: TAB alarm Patient Tobacco Use Status: Never used Tobacco e-Cigarette/Vaping Use: Never Used Second Hand Smoke Exposure: No Advance Directives Date on File: 12/01/21 service: No Current occupational status: disabled Cognitive needs: No Hearing needs: No Vision needs: Yes Review of Systems Const All systems reviewed & are unremarkable except as noted in HPI and below Physical Exam Vital Signs: Last Vital Signs Pulse 79 08/07/24 12:59 BP 130/84 08/07/24 12:59 Pulse Ox 98 08/07/24 12:59 Oxygen Delivery Method Room Air 08/07/24 12:59 BMI result Body Mass Index 26.2 Const General: cooperative, healthy appearing, comfortable and no acute distress Orientation/consciousness: patient oriented x3 Limitations: no limitations HEENT Head: Yes normal to inspection Ears: hearing grossly normal bilaterally, external ears normal and TM's normal bilaterally General nose exam: Normal external nose present, Normal nares present and No nasal discharge present Face and sinus: Yes normal facial exam and Yes sinuses nontender Mouth: Normal oral and palatal mucosa present and moist mucous membranes Throat: Yes tonsils normal, Yes uvula midline and Yes posterior oropharynx abnormal (Erythema) Eyes General: appearance normal, both eyes and all related structures Neck Neck: Yes normal visual inspection Resp Effort & Inspection: normal respiratory effort, able to speak in complete sentences, no respiratory distress, not tachypneic, no tripod positioning and no use of accessory muscles Auscultation: clear to auscultation bilaterally Cardio Rate: regular rate Rhythm: regular rhythm Heart sounds: normal S1 and S2 Skin General skin exam: no rashes or lesions noted Neuro General: patient oriented x3 Extrem General: Yes normal to inspection and Yes no clubbing, cyanosis or edema Assessment & Plan Assessment & Plan (1) Atypical pneumonia: Code(s): J18.9 - Pneumonia, unspecified organism Plan: Vital signs are stable, patient is well-appearing in her lung sounds are clear, likely atypical pneumonia so I will send a Z-Philip to patient's pharmacy, it does say there is an it contraindication with one of her medications because of QT prolongation however patient's QT in April 2024 was 404ms. As it as a one time order, I will send the prescription. Plan see above Medications: New azithromycin For 250 mg dose pack: take 500 mg today (day 1), then 250 mg for 4 days (days 2-5) PO 6 tabs 0RF Coding Level of Care Code Est Pt Level 3 (51435) Diagnoses Atypical pneumonia J18.9
[2024-08-07 12:59] VITALS: BP 130/84; PULSE 79; O2SAT 98; BMI 26.2
== END 2024-08-07 13:53 | disposition home or self-care (01) ==
PROVIDERS: PCP Internal Medicine; Visit Provider Physician Assistant
DX: J18.9 Pneumonia, unspecified organism (principal)

== ENCOUNTER → 2024-08-07 12:20 | Outpatient (BNVA) | payer MEDICARE, MEDICAID, SELFPAY | PROVIDERS: PCP Internal Medicine; Visit Provider Physician Assistant | DX: J18.9 Pneumonia, unspecified organism (principal) | CPT/HCPCS: 99212 ==

== ENCOUNTER → 2024-09-04 14:42 | Outpatient (BNVA) | payer MEDICARE, MEDICAID, SELFPAY | PROVIDERS: PCP Internal Medicine; Visit Provider Internal Medicine Cardiovascular Disease ==

== ENCOUNTER 2024-09-20 12:50 | Outpatient (AMB) | payer MEDICARE, MEDICAID, SELFPAY ==
[2024-09-20 12:53] VITALS: BP 130/76; PULSE 73; O2SAT 96; BMI 26.8
--- NOTE | 2024-09-20 12:53 | MHC.PC.OV ---
Vital Signs 09/20/24 12:53 Height 4 ft 10 in Weight 128 lb 2 oz BMI 26.8 BP 130/76 Blood Pressure Location Rt brachial Position Sitting Pulse 73 Pulse Source Pulse Oximeter Pulse Oximetry (%) 96 Oxygen Delivery Method Room Air Intake Visit Reasons: walk-in follow up Allergies Chocolate Allergy (Mild, Verified 09/20/24 12:54) Rash environmental allergies Allergy (Mild, Verified 09/20/24 12:54) Itchy Eyes erythromycin base [Erythromycin Base] Adverse Reaction (Intermediate, Verified 09/20/24 12:54) GI UPSET ibuprofen [From Motrin] Adverse Reaction (Intermediate, Verified 09/20/24 12:54) Gastrointestinal Upset, increases pain Medication List - Last Reconciled 09/20/24 by Patti Crabtree MD albuterol sulfate 90 mcg/actuation 2 puffs inhalation Q4-6H PRN apixaban (Eliquis) 5 mg PO BID cholecalciferol (vitamin D3) 1,000 units PO BEDTIME docusate sodium (Colace) 100 mg PO BID dronedarone (Multaq) 400 mg PO BID 90 days ferrous sulfate 325 mg PO BID guaifenesin ER (Mucinex) 600 mg PO Q12H 7 days lactulose 15 mL PO BEDTIME PRN loratadine 10 mg PO BEDTIME meclizine 25 mg PO BID PRN 90 days melatonin 5 mg PO .qhs PRN 30 days montelukast 10 mg PO BEDTIME omeprazole 20 mg PO DAILY oxybutynin chloride ER 10 mg PO BEDTIME simvastatin 20 mg PO BEDTIME Tobacco use date assessed: 09/20/24 Fall risk assessment: No Falls in past year Last assessed Fall Risk: 09/20/24 Dental Screening Dental Screen Date: 09/20/24 Did you have a dental visit in the last 12 months?: Yes Did you have a dental problem in the last 6 months where you did not have access to dental care?: No Was dental information given to patient?: Patient has dentist HPI walk-in follow up HPI Details Patient is 64-year-old female who was seen end of last month for respiratory illness Was diagnosed with walking pneumonia and given azithromycin She is feeling better still have slight dry cough at night Patient have a hearing impairment, last hearing test was more than a year ago We need an updated hearing test, referral placed She offer no other complaints [facility] Medical History History of COVID-19 COVID-19 vaccine administered Constipation Afib Overactive bladder Environmental allergies Neuroendocrine neoplasm of gastrointestinal tract Lipid disorder Colon polyp Gastric polyp Anemia Vitamin D deficiency Hyperlipemia Diabetes Arthritis IBS (irritable bowel syndrome) GERD (gastroesophageal reflux disease) Asthma Surgical History History of incisional hernia repair (05/15/24) Hx of resection of small bowel H/O exploratory laparotomy (09/20/22) History of colonoscopy History of esophagogastroduodenoscopy Family History Father Afib Pneumonia Brother Afib Heart disease Brother Heart disease Mother Unknown family medical history Social History Household Members: None Housing: Apartment Housing Other:: mental health association [facility] Are you a primary home care consultant to a significant other at home: No Do you presently have 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 or 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 (RN REHAB) Alcohol intake: never Comment: TAB alarm Patient Tobacco Use Status: Never used Tobacco e-Cigarette/Vaping Use: Never Used Second Hand Smoke Exposure: No Advance Directives Date on File: 12/01/21 service: No Current occupational status: disabled Cognitive needs: No Hearing needs: No Vision needs: Yes Questionnaire Thrive Questionnaire Date Thrive assessed: 09/20/24 I am a: Patient What is your living situation today?: I have a steady place to live Within the past 12 months, did the food you bought not last and you didn't have the money to get more?: Never true Within the past 12 months, did you worry whether your food would run out before you got money to buy more?: Never true Do you have trouble paying for medicines?: No Do you have trouble getting transportation to medical appointments?: No Do you have trouble paying your heating and electricity bill?: No Do you have trouble taking care of your child, family member or friend?: No Do you have trouble with day-to-day activities such as bathing, preparing meals, shopping, managing finances, etc.?: No Are you currently unemployed and looking for a job?: No Are you interested in more education?: No Please select the resources that you would like help with: None Currently or been in a relationship where the following occur: No concerns reported THRIVE Score: 0 AUDIT C Alcohol Use Questionnaire (AUDIT-C) 1. How often do you have a drink containing alcohol?: Never 3. How often do you have six or more drinks on one occasion?: Never Total Score: 0 Score Reviewed/Action Taken: Yes LYLE-7 AMB Questionnaire LYLE-7 Date LYLE - 7 assessed: 06/04/24 Source: Developed by Drs. Teodoro Young, Glenna Jimenez, Ayo Ramesh and colleagues, with an educational manuel from [employer]. Review of Systems Const Denies chills and Denies fever(s) ENT Denies epistaxis and Denies nasal discharge Card Denies chest pain Resp Denies chest congestion and Denies hemoptysis GI Denies diarrhea and Denies nausea Skin/Breast Denies rash Neuro Reports no additional complaints Psych Reports no additional complaints Endo Reports no additional complaints Physical exam (Primary Care) Vital Signs: Last Vital Signs Pulse 73 09/20/24 12:53 BP 130/76 09/20/24 12:53 Pulse Ox 96 09/20/24 12:53 Oxygen Delivery Method Room Air 09/20/24 12:53 BMI result Body Mass Index 26.8 Tobacco/Smoking Status: Tobacco use Status Tobacco use date assessed 09/20/24 09/20/24 13:04 Patient Tobacco Use Status Never used Tobacco 09/20/24 12:56 e-Cigarette/Vaping Use Never Used 09/20/24 12:56 Thrive Assessment: Date of Thrive Assessment Date Thrive assessed 09/20/24 09/20/24 13:09 Currently or been in a relationship where the following occur: No concerns reported Const General: cooperative, comfortable and no acute distress Orientation/consciousness: patient oriented x3 HENMT Other: Both ears within normal limit Head: Yes normocephalic Eyes General: appearance normal, both eyes and all related structures Neck Neck: Yes supple Resp Effort & Inspection: normal respiratory effort, no cough and no stridor Cardio Rhythm: regular rhythm Heart sounds: S1 normal heart sound present and S2 normal heart sound present Skin General skin exam: turgor normal Neuro General: patient oriented x3, tone normal and moves all extremities Extrem Right lower extremity: no edema Left lower extremity: no edema Coding Level of Care Code Est Pt Level 3 (01757) Diagnoses Hearing difficulty, unspecified laterality H91.90 Laterality: unspecified laterality Assessment & Plan Assessment & Plan (1) Difficulty hearing: Code(s): H91.90 - Unspecified hearing loss, unspecified ear Category: Medical Qualifiers: Laterality: unspecified laterality Qualified Code(s): H91.90 - Unspecified hearing loss, unspecified ear Plan Patient is 64-year-old female who was seen end of last month for respiratory illness Was diagnosed with walking pneumonia and given azithromycin She is feeling better still have slight dry cough at night Patient have a hearing impairment, last hearing test was more than a year ago We need an updated hearing test, referral placed She offer no other complaints Orders: Referrals Audiology Referral H91.90 - Unspecified hearing loss, unspecified ear
== END 2024-09-20 14:40 | disposition home or self-care (01) ==
PROVIDERS: PCP Internal Medicine; Visit Provider Internal Medicine
DX: H91.90 Unspecified hearing loss, unspecified ear (principal)

== ENCOUNTER → 2024-09-20 12:50 | Outpatient (BNVA) | payer MEDICARE, MEDICAID, SELFPAY | PROVIDERS: PCP Internal Medicine; Visit Provider Internal Medicine | DX: H91.93 Unspecified hearing loss, bilateral (principal); R05.9 Cough, unspecified | CPT/HCPCS: 99212 ==

== ENCOUNTER 2024-10-17 13:01 | Outpatient (REF) | payer MEDICARE, MEDICAID, SELFPAY | END 2024-10-17 13:02 | disposition home or self-care (01) | LOC: HO.SH 13:01 | PROVIDERS: Visit Provider Internal Medicine | DX: Z01.118 Encounter for examination of ears and hearing with other abnormal findings (principal); H91.93 Unspecified hearing loss, bilateral | CPT/HCPCS: 92557; 92567 ==

== ENCOUNTER 2024-11-07 14:35 | Outpatient (REF) | payer MEDICARE, MEDICAID, SELFPAY ==
[2024-11-07 14:52] LABS: MANUAL DIFF FLAG NO
[2024-11-07 14:59] LABS: Basophils Percent Auto 0.6 % (0-2); Eosinophils Absolute Auto 0.1 X10*3/uL (0.0-0.4); Eosinophils Percent Auto 0.8 % (0-4); Hematocrit 31.6 % (37.0-47.0); Hemoglobin 10.4 g/dl (12.0-16.0); Imm Gran Abs Auto 0.03 X10*3/uL (0.00-0.03); Imm Gran Pct Auto 0.4 % (0.0-0.4); Lymphocytes Absolute Auto 1.9 X10*3/uL (1.2-4.9); Mean Corpuscular HGB Conc 32.9 g/dl (31.0-35.0); Mean Corpuscular Hemoglobin 31.2 pg (27.0-33.0); Mean Corpuscular Volume 94.9 fL (80.0-98.0); Mean Platelet Volume 10.2 fL (9.4-12.3); Monocytes Absolute Auto 0.5 X10*3/uL (0.1-1.2); Monocytes Percent Auto 7.2 % (2-11); Neutrophils Absolute Auto 4.7 x10*3/uL (2.0-8.3); Platelet Count 233 X10*3/uL (160-400); Red Blood Count 3.33 X10*6/uL (4.20-5.50); Red Cell Distribution Width 13.7 % (11.0-16.0); White Blood Count 7.2 X10*3/uL (4.8-10.8)
[2024-11-07 15:29] LABS: Alanine Aminotransferase 7 U/L (0-31); Anion Gap 11 (12-20); Aspartate Amino Transferase 19 U/L (5-31); Bilirubin Total 0.5 mg/dL (0.0-1.0); Blood Urea Nitrogen 23 mg/dL (9-16); Calcium 8.8 mg/dL (8.4-10.2); Carbon Dioxide 25 mmol/L (22-29); Chloride 109 mmol/L (96-108); Estimated Glomerular Filt Rate 56; Glucose Random 128 mg/dL (60-115); Potassium 4.4 mmol/L (3.3-5.1); Sodium 141 mmol/L (135-145); Total Protein 6.9 g/dL (6.5-8.0)
[2024-11-07 15:53] LABS: Alkaline Phosphatase 70 U/L (39-117)
== END 2024-11-07 14:36 | disposition home or self-care (01) ==
LOC: HO.LAB 14:35
PROVIDERS: PCP Internal Medicine; Visit Provider Internal Medicine
DX: C7B.00 Secondary carcinoid tumors, unspecified site (principal)
CPT/HCPCS: 36415; 80053; 85025

== ENCOUNTER 2024-11-20 15:42 | Outpatient (REF) | payer MEDICARE, MEDICAID, SELFPAY ==
--- NOTE | ~2024-11-20 | CT_ITS ---
CLINICAL HISTORY: Assess response to treatment CT of the abdomen and pelvis utilizing intravenous contrast. Comparison 05/19/2024. Findings: The liver and gallbladder are unremarkable. Mild prominence of the renal pelvis bilaterally is likely incidental. The spleen is unremarkable. Diffuse pancreatic atrophy is noted. No abdominal aortic aneurysm. Small hiatal hernia. 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 This is indeterminate but similar to previous when allowing for difference in technique. Moderate stool is seen within the colon. There is a focally dilated loop of small bowel in the right abdomen with associated sutures. This appearance may relate to prior surgery. No definite bowel obstruction is seen. There is a small amount of free fluid. There is mild nonspecific bladder wall thickening. The bladder is nondilated. Hysterectomy. Impression: Small hiatal hernia. 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 This is similar to previous. Small amount of free fluid. Bladder wall thickening could relate to incomplete distention however mild cystitis is a possibility. Small nodules in the lower lungs are similar to previous and technically indeterminate. These measure under 5 mm. Focally dilated loop of small bowel in the right abdomen may relate to prior surgery. This document has been electronically signed by: Rohith Ma MD on 11/20/2024 17:30:56
[2024-11-20] MEDS: iohexoL 350 MG/ML 100 ML INFUS..BTL 85 ML IV (16:44)
== END 2024-11-20 15:43 | disposition home or self-care (01) ==
LOC: HO.CT 15:42
PROVIDERS: PCP Internal Medicine; Visit Provider Internal Medicine
DX: D3A.8 Other benign 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 tumors (principal)
CPT/HCPCS: 74177; Q9967

== ENCOUNTER → 2024-11-20 15:45 | Outpatient (BNV) | payer MEDICARE, MEDICAID, SELFPAY | PROVIDERS: PCP Internal Medicine; Visit Provider Radiology Diagnostic Radiology | DX: K46.9 Unspecified abdominal hernia without obstruction or gangrene (principal); R91.1 Solitary pulmonary nodule | CPT/HCPCS: 74177 ==

== ENCOUNTER 2024-12-12 15:00 | Outpatient (AMB) | payer MEDICARE, MEDICAID, SELFPAY ==
--- NOTE | 2024-12-12 15:01 | A.OFFVIS_ITS ---
Vital Signs 12/12/24 15:15 Height 4 ft 10 in Weight 132 lb 4.438 oz BMI 27.6 BP 120/74 Blood Pressure Location Lt brachial Position Sitting Pulse 67 Intake Visit Reasons: 1 yr follow up w EKG Intake Note: 1 year follow-up with ekg c/o chest pain in center of chest 90 minute ago Maternal Child Nurse Required: No Allergies Chocolate Allergy (Mild, Verified 09/20/24 12:54) Rash environmental allergies Allergy (Mild, Verified 09/20/24 12:54) Itchy Eyes erythromycin base [Erythromycin Base] Adverse Reaction (Intermediate, Verified 09/20/24 12:54) GI UPSET ibuprofen [From Motrin] Adverse Reaction (Intermediate, Verified 09/20/24 12:54) Gastrointestinal Upset, increases pain Medication List - Last Reconciled 12/12/24 by Chapo Avelar MD albuterol sulfate 90 mcg/actuation 2 puffs inhalation Q4-6H PRN apixaban (Eliquis) 5 mg PO BID cholecalciferol (vitamin D3) 1,000 units PO BEDTIME docusate sodium (Colace) 100 mg PO BID dronedarone (Multaq) 400 mg PO BID 90 days ferrous sulfate 325 mg PO BID guaifenesin ER (Mucinex) 600 mg PO Q12H 7 days lactulose 15 mL PO BEDTIME PRN loratadine 10 mg PO BEDTIME meclizine 25 mg PO BID PRN 90 days melatonin 5 mg PO .qhs PRN 30 days montelukast 10 mg PO BEDTIME omeprazole 20 mg PO DAILY oxybutynin chloride ER 10 mg PO BEDTIME simvastatin 20 mg PO BEDTIME HPI Comments Details: Deshawn comes for follow-up of atrial fibrillation. Overall she has been doing well with no recurrent episodes of atrial fibrillation. She complains of symptoms of right-sided chest pain not exertional in nature. The symptoms happens after food. She had some symptoms about an hour ago. Comes for follow- up. Denies any orthopnea, PND, leg edema. No bleeding issues or neurologic events. Takes all her medications. [facility] Medical History History of COVID-19 COVID-19 vaccine administered Constipation Afib Overactive bladder Environmental allergies Neuroendocrine neoplasm of gastrointestinal tract Lipid disorder Colon polyp Gastric polyp Anemia Vitamin D deficiency Hyperlipemia Diabetes Arthritis IBS (irritable bowel syndrome) GERD (gastroesophageal reflux disease) Asthma Surgical History History of incisional hernia repair (05/15/24) Hx of resection of small bowel H/O exploratory laparotomy (09/20/22) History of colonoscopy History of esophagogastroduodenoscopy Family History Father Afib Pneumonia Brother Afib Heart disease Brother Heart disease Mother Unknown family medical history Social History Household Members: None Housing: Apartment Housing Other:: [facility] Are you a primary care administrative tech to a significant other at home: No Do you presently have 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) Alcohol intake: never Comment: TAB alarm Patient Tobacco Use Status: Never used Tobacco e-Cigarette/Vaping Use: Never Used Second Hand Smoke Exposure: No Advance Directives Date on File: 12/01/21 service: No Current occupational status: disabled Cognitive needs: No Hearing needs: No Vision needs: Yes Review of Systems Const Denies chills, Denies fatigue, Denies fever(s), Denies frequent falls, Denies weakness, Denies weight gain and Denies weight loss ENT Denies dizziness Card Denies chest pain, Denies leg edema, Denies lightheadedness, Denies palpitations, Denies dyspnea, Denies dyspnea on exertion, Denies orthopnea and Denies other (loss of consciousness) Resp Denies cough, Denies dyspnea and Denies dyspnea on exertion GI Denies hematochezia and Denies change in stool character Musc Denies abnormal gait, Denies muscle weakness, Denies numbness, Denies radiating pain into limb and Denies tingling Neuro Denies abnormal gait, Denies dizziness, Denies frequent falls, Denies numbness, Denies tingling and Denies weakness Endo Denies fatigue and Denies palpitations Physical Exam Vital Signs: Last Vital Signs Pulse 67 12/12/24 15:15 BP 120/74 12/12/24 15:15 BMI result Body Mass Index 27.6 Last Vital Signs Temp 97.9 F 05/19/24 06:59 Pulse 81 05/19/24 06:59 Resp 17 07/21/24 06:59 BP 132/61 05/19/24 06:59 Pulse Ox 92 05/19/24 06:59 O2 Del Method Room Air 05/19/24 06:59 BMI result Body Mass Index 29.0 Const General: cooperative, comfortable, no acute distress, alert and awake Nutritional Appearance: average body habitus Orientation/consciousness: patient oriented x3 HEENT Head: Yes normocephalic and Yes atraumatic Neck Neck: Yes trachea midline, Yes supple and Yes no JVD Resp Effort & Inspection: decreased respiratory effort Auscultation: no rales, no wheezes and diminished lung sounds Cardio Jugular venous distension: no JVD Palpation: normal PMI Rate: regular rate Rhythm: regular rhythm Heart sounds: S1 normal heart sound present, S2 normal heart sound present, no click, no gallops, no murmurs and no rubs GI Inspection: Yes distended Auscultation: Hypoactive bowel sounds present Skin General skin exam: no rashes or lesions noted Neuro General: patient oriented x3 and no focal motor deficits Extrem General: No clubbing, No cyanosis and Yes edema Office Procedures EKG Details: EKG shows normal sinus rhythm with first-degree AV block otherwise normal EKG [id number], Complete Assessment & Plan Assessment & Plan (1) Paroxysmal atrial fibrillation: Code(s): I48.0 - Paroxysmal atrial fibrillation Category: Medical Plan: Patient was highly symptomatic paroxysmal atrial fibrillation which has remained suppressed with Multaq therapy. She was done well with the same. Continue Multaq therapy. Will need EKGs every 3 months. Continue full oral anticoagulation, currently on Eliquis 5 mg b.i.d.. Semi annual renal function test should be pursued. Stress mitigation strategies were discussed. Avoidance of stimulants was discussed. (2) Orthostatic hypotension: Code(s): I95.1 - Orthostatic hypotension Category: Medical Plan: No more symptoms suggestive of orthostatic hypotension at this point time. Advised to continue to maintain adequate hydration. She understands agrees. No change in therapy. (3) Non-cardiac chest pain: Code(s): R07.89 - Other chest pain Category: Medical Plan: Her chest pain appears to be noncardiac in origin. She had a myocardial perfusion imaging within last year which is within normal limits. No further cardiac workup is indicated. Consider GI workup and/or GI treatment. Will follow up in the clinic every 3 months for EKG. Follow-up with me in 1 yea r's time. Coding Level of Care Code Est Pt Level 4 (86193) Complex EM visit Add On G2211 Diagnoses Paroxysmal atrial fibrillation I48.0 Orthostatic hypotension I95.1 Non-cardiac chest pain R07.89 CPT Codes EKG - CPT: 84961-[id number], Complete ([id number])
[2024-12-12 15:15] VITALS: BP 120/74; PULSE 67; BMI 27.6
== END 2024-12-12 15:55 | disposition home or self-care (01) ==
LOC: HO.HCS 15:00
PROVIDERS: PCP Internal Medicine; Visit Provider Internal Medicine Cardiovascular Disease
DX: I48.0 Paroxysmal atrial fibrillation (principal); I95.1 Orthostatic hypotension; R07.89 Other chest pain
CPT/HCPCS: 93010; 99214; G2211

== ENCOUNTER → 2024-12-12 15:00 | Outpatient (BNVA) | payer MEDICARE, MEDICAID, SELFPAY | PROVIDERS: PCP Internal Medicine; Visit Provider Internal Medicine Cardiovascular Disease | DX: I48.0 Paroxysmal atrial fibrillation (principal); I44.0 Atrioventricular block, first degree; I95.1 Orthostatic hypotension; R07.89 Other chest pain | CPT/HCPCS: 93005; 99212 ==

== ENCOUNTER 2025-01-04 14:16 | Emergency (ER) | payer MEDICARE, MEDICAID, SELFPAY ==
--- NOTE | ~2025-01-04 | XR_ITS ---
CLINICAL HISTORY: lower abd pain, ?constipation, hx SBO Abdominal radiographs Comparison: CT/SR - CT ABDOMEN PELVIS W IV CON - 11/20/24 16:08 EST CR/SR - XR KUB - 05/19/24 06:17 EDT Findings: There is a nonobstructive bowel gas pattern. Stool quantity is within normal limits. No pneumoperitoneum or pneumatosis. Bowel anastomotic sutures in the right lower quadrant. No acute osseous or soft tissue abnormality. Impression: No acute findings. This document has been electronically signed by: Clarisse Amaral MD on 01/04/2025 15:18:39
--- NOTE | ~2025-01-04 | CT_ITS ---
CLINICAL HISTORY: mid lower ABD pain and nausea CT abdomen and pelvis with contrast Comparison: CR - XR KUB - 01/04/25 14:[address]/SR - CT ABDOMEN PELVIS W IV CON - 11/20/24 16:[address]/SR - CT ABDOMEN PELVIS W IV CON - 05/19/24 08:[address] - CT ABDOMEN PELVIS W IV CON - 05/19/24 08:32 EDT Findings: No consolidation at the lung bases. Pulmonary nodules measure up to 4 mm, unchanged. No gallstones visible on CT. There is gallbladder wall thickening. Lobular contour of the kidneys could be secondary to multifocal scarring. Bilateral extrarenal pelvises. No hydronephrosis or nephrolithiasis. The kidneys enhance normally and excrete contrast symmetrically. Subcentimeter low attenuating lesion in the left kidney which is too small to characterize. Unremarkable bladder. The other solid organs are unremarkable. No bowel wall thickening or dilation. Small bowel anastomotic sutures in the right lower quadrant with a wpxk-go-eete anastomosis. The appendix is not visualized. No secondary signs of acute appendicitis. Moderately increased stool quantity. No aneurysm. Mild calcified atherosclerotic disease. There is persistent wall thickening of the distal superior mesenteric artery (see series 3 images 25 through 45). No lymphadenopathy. No ascites. No acute osseous abnormality. Grade 1 anterolisthesis of L5 on S1, degenerative. Impression: No gallstones visible on CT. There is gallbladder wall thickening. If there is clinical concern for acute cholecystitis evaluate further with a right upper quadrant ultrasound. Persistent wall thickening of the superior mesenteric artery could be inflammatory. Moderately increased stool quantity may indicate constipation. This document has been electronically signed by: Clarisse Amaral MD on 01/04/2025 18:59:23
--- NOTE | ~2025-01-04 | US_ITS ---
CLINICAL HISTORY: ABD pain, nausea, GB wall thickening on CT Limited abdominal ultrasound Comparison: CT/SR - CT ABDOMEN PELVIS W IV CON - 01/04/25 17:25 EST Findings: The common bile duct is normal in diameter, measuring 0.5 cm. No cholelithiasis. There is thickening of the gallbladder wall, measuring up to 0.5 cm. Negative sonographic Sutton sign. Impression: Negative for acute cholecystitis. Gallbladder wall thickening could be secondary to systemic pathology. This document has been electronically signed by: Clarisse Amaral MD on 01/04/2025 20:21:56
[2025-01-04 14:17] VITALS: BP 133/75; PULSE 90; RESP 20; TEMP 37.1; O2SAT 97; BMI 21.7
--- NOTE | 2025-01-04 14:20 | ED_ITS ---
HPI - Abdominal Pain General Chief Complaint: Abdominal Pain Stated Complaint: abd pain Time Seen by Provider: 01/04/25 15:25 Source: patient Mode of arrival: ambulatory Limitations: no limitations History of Present Illness ED Provider: Kezia Gotti NP HPI narrative: Patient is a 64-year-old female who presents emergency department for evaluation endorsing mid lower abdominal pain with onset earlier this morning associated nausea but no vomiting. Pain at times radiates to the right lower quadrant but not always. patient reports that she has experienced similar feeling pain in a similar location in the past on 3 occasions; one time she had a small bowel obstruction, another she had a hernia, and another was due to a cancerous tumor. Denies fevers, chills, chest pain, vomiting, hematemesis, diarrhea, constipation, hematochezia, melena, dysuria, urinary frequency, urinary urgency, urinary hesitancy, hematuria. denies pelvic pain or abnormal vaginal discharge Denies concern for sexually transmitted infection. Related Data Home Medications ?Medication ?Instructions ?Recorded ?Confirmed lactulose 10 gram/15 mL oral 15 ml PO BEDTIME PRN Constipation 05/15/24 12/12/24 solution Previous Rx's ?Medication ?Instructions ?Recorded ferrous sulfate 325 mg (65 mg 325 mg PO BID #60 tabs 05/29/23 iron) tablet dronedarone 400 mg tablet (Multaq) 400 mg PO BID 90 days #180 tabs 06/27/23 melatonin 5 mg capsule 5 mg PO .qhs PRN To sleep 30 days 11/06/23 #90 caps oxybutynin chloride 10 mg 10 mg PO BEDTIME #90 tabs 01/17/24 tablet,extended release 24 hr apixaban 5 mg tablet (Eliquis) 5 mg PO BID #180 tabs 01/30/24 loratadine 10 mg tablet 10 mg PO BEDTIME #90 tabs 02/08/24 meclizine 25 mg tablet 25 mg PO BID PRN motion sickness 02/13/24 90 days #180 tabs albuterol sulfate 90 mcg/actuation 2 puff inhalation Q4-6H PRN 05/08/24 aerosol inhaler Shortness Of Breath Or Wheezing #8.5 grams omeprazole 20 mg capsule,delayed 20 mg PO DAILY #90 caps 05/27/24 release docusate sodium 100 mg capsule 100 mg PO BID constipation #60 caps 07/10/24 (Colace) guaifenesin 600 mg tablet, 600 mg PO Q12H congestion 7 days 07/29/24 extended release 12 hr (Mucinex) #14 tabs simvastatin 20 mg tablet 20 mg PO BEDTIME #90 tabs 08/26/24 cholecalciferol (vitamin D3) 25 1,000 unit PO BEDTIME #90 caps 10/18/24 mcg (1,000 unit) capsule montelukast 10 mg tablet 10 mg PO BEDTIME #90 tabs 12/10/24 Allergies Allergy/AdvReac Type Severity Reaction Status Date / Time Chocolate Allergy Mild Rash Verified 01/04/25 14:22 environmental allergies Allergy Mild Itchy Eyes Verified 01/04/25 14:22 erythromycin base AdvReac Intermediate GI UPSET Verified 01/04/25 14:22 [Erythromycin Base] ibuprofen [From Motrin] AdvReac Intermediate Gastrointestinal Verified 01/04/25 14:22 Upset, increases pain Review of Systems Review of Systems Yes all other systems are reviewed and are negative [facility] Past Medical History Attestation statement: The following information was validated with the patient. Source: old records reviewed Medical History History of COVID-19 COVID-19 vaccine administered Constipation Afib Overactive bladder Environmental allergies Neuroendocrine neoplasm of gastrointestinal tract Lipid disorder Colon polyp Gastric polyp Anemia Vitamin D deficiency Hyperlipemia Diabetes Arthritis IBS (irritable bowel syndrome) GERD (gastroesophageal reflux disease) Asthma Surgical History History of incisional hernia repair (05/15/24) Hx of resection of small bowel H/O exploratory laparotomy (09/20/22) History of colonoscopy History of esophagogastroduodenoscopy Family History Family History Father Afib Pneumonia Brother Afib Heart disease Brother Heart disease Mother Unknown family medical history Social History Social History Household Members: None Housing: Apartment Housing Other:: [facility] Are you a primary critical care unit manager to a significant other at home: No 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) Alcohol intake: never Comment: TAB 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 Patient Tobacco Use Status: Never used Tobacco Smoked in Last 30 Days: No e-Cigarette/Vaping Use: Never Used Second Hand Smoke Exposure: No Use of substances other than those prescribed or required for medical reasons: No Advance Directives: Yes Advance Directives on File: Yes Advance Directives Date on File: 12/01/21 service: No Current occupational status: disabled Cognitive needs: No Hearing needs: No Vision needs: Yes Physical Exam ED Vital Signs: Vital Signs - 24 hr 01/04/25 14:17 01/04/25 16:27 01/04/25 18:34 Temperature 98.7 F Pulse Rate 90 61 80 Respiratory Rate 20 12 14 Blood Pressure 133/75 124/66 124/68 Pulse Oximetry 97 98 97 Oxygen Delivery Method Room Air Room Air Room Air 01/04/25 20:03 Temperature 97.9 F Pulse Rate 66 Respiratory Rate 18 Blood Pressure 128/68 Pulse Oximetry 96 Oxygen Delivery Method Room Air BMI result Body Mass Index 21.7 Appearance: Alert.?Oriented to person, place and time. No acute distress.?Normal affect.?? Neck: Normal inspection.? Neck supple.?? CVS: Heart sounds normal. Normal heart rate and rhythm.? Pulses normal.?? Respiratory: No respiratory distress.? Lung sounds clear to auscultation bilaterally?? Abdomen: Soft Semifirm with diffuse abdominal tenderness upon palpation, worse to the mid lower abdominal, with wincing but no guarding. No rebound tenderness at McBurney's point. Negative psoas sign. Negative Rovsing sign. Negative Sutton sign. No CVAT. Normoactive bowel sounds. No pulsatile mass.?? Skin: Skin warm and dry.? Normal skin color.? Extremities: No lower extremity edema.? Neuro: Moves all extremities spontaneously. Sensation intact bilaterally. Ambulates with normal steady gait. Course Course Course Narrative: This is a Rapid Medical Examination (RME) performed by Mary Otero PA-C in triage. Full HPI, ROS, assessment and treatment plan per primary provider in the Main ED. 64 yo female hx of GERD, sampson syndrome, SBO, hypotension, carcinoind tumor, prior ex lap here for eval of lower abd pain and nausea which began this morning. 02/06 present no V/D. last BM yesterday morning. not passing flatus. no blood in stools. Plan: labs, UA KUB +/- advanced imaging per primary provider Reevaluation(s) Reevaluation #1: CT of the abdomen and pelvis is revealing gallbladder wall thickening, no visible stones on CT, although she presented with reports of lower abdominal pain she is diffusely tender throughout the abdomen, negative Sutton sign, unremarkable LFTs, will obtain right upper quadrant ultrasound to evaluate for stones/acute cholecystitis. CT revealing persistent wall thickening of the superior mesenteric artery in addition to moderate stool burden. On my interpretation bladder is also noted to be distended, is unclear whether she voided prior to or after CT scan, had a bladder scan of 260 mL, was able to urinate with PVR of 0. patient to be signed out to Cheryl CASTELLON pending right upper quadrant ultrasound, if negative I anticipate that she may be discharged home Reevaluation #2: I Zuleyka Herndon PA-C have accepted care of the patient at signed out pending ultrasound and final disposition Ultrasound right upper quadrant:Findings: The common bile duct is normal in diameter, measuring 0.5 cm. No cholelithiasis. There is thickening of the gallbladder wall, measuring up to 0.5 cm. Negative sonographic Sutton sign. Impression: Negative for acute cholecystitis. Gallbladder wall thickening could be secondary to systemic pathology. 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 On examination she is tender diffusely but with notable tenderness to the mid lower abdomen. Prior to my assumption of care she had a KUB obtained which revealed a nonobstructive bowel gas pattern no significant stool burden. CMP is without electrolyte derangement, no evidence of ELY, LFTs and lipase are unremarkable. CBC is without leukocytosis anemia or thrombocytopenia. Will obtain CT of the abdomen and pelvis for further evaluation. Differential to include IBS, UTI, appendicitis, diverticulitis, bowel obstruction, intra-abdominal mass, no appreciable hernia to suggest incarceration. currently she is without signs of systemic toxicity afebrile without tachycardia no hypotension. Differential Diagnosis Differential Diagnoses: The differential diagnosis associated with the presentation includes (See narrative above) Admission/Observation Consideration of admission/observation: Escalation of care including admission/observation considered (See narrative above ) Lab Data MDM Lab Attestation statement: I reviewed the patient's lab results. ( See narrative above) 01/04/25 14:29 01/04/25 14:29 Labs: Lab Results 01/04/25 01/04/25 Range/Units 14:29 18:06 WBC 7.0 (4.8-10.8) X10*3/uL RBC 4.01 L (4.20-5.50) X10*6/uL Hgb 12.5 D (12.0-16.0) g/dl Hct 37.6 (37.0-47.0) % MCV 93.8 (80.0-98.0) fL MCH 31.2 (27.0-33.0) pg MCHC 33.2 (31.0-35.0) g/dl RDW 13.2 (11.0-16.0) % Plt Count 242 (160-400) X10*3/uL MPV 10.6 (9.4-12.3) fL Immature Gran % (Auto) 0.3 (0.0-0.4) % Neut % (Auto) 62.1 (45-73) % Lymph % (Auto) 29.7 (20-40) % Power % (Auto) 7.2 (2-11) % Eos % (Auto) 0.4 (0-4) % Baso % (Auto) 0.3 (0-2) % Lymph # (Auto) 2.1 (1.2-4.9) X10*3/uL Power # (Auto) 0.5 (0.1-1.2) X10*3/uL Eos # (Auto) 0.0 (0.0-0.4) X10*3/uL Baso # (Auto) 0.0 (0.0-0.2) X10*3/uL Abs Immat Gran (auto) 0.02 (0.00-0.03) X10*3/uL Absolute Neuts (auto) 4.4 (2.0-8.3) x10*3/uL Absolute Nucleated RBC 0.000 (0.0-0.012) X10*3/uL Nucleated RBC % (auto) 0.0 (0.0-0.2) /100WBC Sodium 141 (135-145) mmol/L Potassium 5.0 (3.3-5.1) mmol/L Chloride 107 (96-108) mmol/L Carbon Dioxide 26 (22-29) mmol/L Anion Gap 13 (12-20) BUN 29 H (9-16) mg/dL Creatinine 1.20 (0.5-1.4) mg/dL Estim Creat Clear Calc 40.3 Estimated GFR 45 Random Glucose 191 H (60-115) mg/dL Calcium 9.5 (8.4-10.2) mg/dL Magnesium 2.1 (1.6-2.6) mg/dL Total Bilirubin 0.3 (0.0-1.0) mg/dL AST 22 (5-31) U/L ALT 14 (0-31) U/L Alkaline Phosphatase 81 (39-117) U/L Total Protein 7.9 (6.5-8.0) g/dL Albumin 4.3 (3.5-5.0) g/dL Lipase 11 (8-78) U/L Urine Color Yellow Urine Appearance Clear Urine pH 6.0 (5.0-9.0) Ur Specific [place] 1.020 (1.005-1.025) Urine Protein Negative (Neg-Trace) mg/dL Urine Glucose (UA) Negative (Negative) mg/dL Urine Ketones Negative (Negative) mg/dL Urine Blood Negative (Negative) Urine Nitrite Negative (Negative) Ur Leukocyte Esterase Moderate (2+) H (Negative) Urine RBC 0-2 (0-2) /HPF Urine WBC 0-5 (0-5) /HPF Ur Squamous Epith Cells 0-2 (0-2) /HPF Urine Bacteria None Seen (None Seen) Hyaline Casts 0-2 (0-2) /LPF Independent Interpretation I performed an independent interpretation of an: Plain X-Ray ( sees narrative above) Radiology Impression Discussion of test interpretation with radiology: I have reviewed the radiologist's reading. Radiologist Impression: Abdominal radiographs Comparison: CT/SR - CT ABDOMEN PELVIS W IV CON - 11/20/24 16:08 EST CR/SR - XR KUB - 05/19/24 06:17 EDT Findings: There is a nonobstructive bowel gas pattern. Stool quantity is within normal limits. No pneumoperitoneum or pneumatosis. Bowel anastomotic sutures in the right lower quadrant. No acute osseous or soft tissue abnormality. Impression: No acute findings. Impression: CT AP w/ IV contrast No gallstones visible on CT. There is gallbladder wall thickening. If there is clinical concern for acute cholecystitis evaluate further with a right upper quadrant ultrasound. Persistent wall thickening of the superior mesenteric artery could be inflammatory. Moderately increased stool quantity may indicate constipation. External Record Review External record reviewed: Outpatient record Prescription Management I considered prescription management with: Pain Medication Medications Administered Discontinued Medications Generic Name Dose Route Start Last Admin Trade Name Freq PRN Reason Stop Dose Admin Sodium Chloride 1,000 mls @ 999 mls/hr 01/04/25 16:30 01/04/25 18:02 Ns IV 01/04/25 17:30 Infused .Q1H1M HERBERT Infusion Iohexol 100 ml 01/04/25 17:41 01/04/25 17:42 Iohexol 350 Mg/Ml 100 Ml Infus..Btl IV 01/04/25 17:42 85 ml ONCE ONE Administration Morphine Sulfate 2 mg 01/04/25 16:24 01/04/25 17:08 Morphine Sulfate 2 Mg/Ml Cartridge IVPUSH 01/04/25 16:25 2 mg ONCE ONE Administration Protocol Ondansetron HCl 4 mg 01/04/25 16:24 01/04/25 17:08 Ondansetron Hcl 4 Mg/2 Ml Vial IVPUSH 01/04/25 16:25 4 mg ONCE ONE Administration Discharge Plan Discharge Clinical Impression: Abdominal pain, Constipation Patient Disposition: Home, Self-Care Instructions: Constipation (ED) Additional Instructions: The ultrasound of the abdomen was normal, you had no lab abnormalities. The CT scan revealed that you were considerably constipated, this is the cause of your discomfort. See home care instructions. The Colace that you take, the stool softener, you need to start taking twice a day. In addition, use [id number] MiraLax, 2 to 3 times a day, until you begin having multiple large volume bowel movements. Follow up with your primary care provider as needed. Prescriptions: No Action ferrous sulfate 325 mg (65 mg iron) Tablet 325 mg PO BID Qty: 60 4RF Multaq 400 mg tablet 400 mg PO BID 90 Days Qty: 180 3RF melatonin 5 mg capsule 5 mg PO .qhs PRN (Reason: To sleep) 30 Days Qty: 90 3RF oxybutynin chloride 10 mg tablet extended release 24hr 10 mg PO BEDTIME Qty: 90 3RF Eliquis 5 mg tablet 5 mg PO BID Qty: 180 3RF loratadine 10 mg tablet 10 mg PO BEDTIME Qty: 90 3RF meclizine 25 mg tablet 25 mg PO BID PRN (Reason: motion sickness) 90 Days Qty: 180 3RF omeprazole 20 mg capsule,delayed release(DR/EC) 20 mg PO DAILY Qty: 90 2RF docusate sodium [Colace] 100 mg capsule 100 mg PO BID Qty: 60 1RF guaifenesin [Mucinex] 600 mg tablet extended release 12hr 600 mg PO Q12H 7 Days Qty: 14 0RF simvastatin 20 mg tablet 20 mg PO BEDTIME Qty: 90 1RF cholecalciferol (vitamin D3) 25 mcg (1,000 unit) capsule 1,000 unit PO BEDTIME Qty: 90 3RF montelukast 10 mg tablet 10 mg PO BEDTIME Qty: 90 1RF lactulose 10 gram/15 mL solution 15 ml PO BEDTIME PRN (Reason: Constipation) albuterol sulfate 90 mcg/actuation HFA aerosol inhaler 2 puff INHALATION Q4-6H PRN (Reason: Shortness Of Breath Or Wheezing) Qty: 8.5 0RF Print Language: Maori
[2025-01-04 14:33] LABS: MANUAL DIFF FLAG NO
[2025-01-04 14:36] LABS: Basophils Percent Auto 0.3 % (0-2); Eosinophils Percent Auto 0.4 % (0-4); Hematocrit 37.6 % (37.0-47.0); Hemoglobin 12.5 g/dl (12.0-16.0); Imm Gran Abs Auto 0.02 X10*3/uL (0.00-0.03); Imm Gran Pct Auto 0.3 % (0.0-0.4); Lymphocytes Absolute Auto 2.1 X10*3/uL (1.2-4.9); Lymphocytes Percent Auto 29.7 % (20-40); Mean Corpuscular HGB Conc 33.2 g/dl (31.0-35.0); Mean Corpuscular Hemoglobin 31.2 pg (27.0-33.0); Mean Corpuscular Volume 93.8 fL (80.0-98.0); Mean Platelet Volume 10.6 fL (9.4-12.3); Monocytes Absolute Auto 0.5 X10*3/uL (0.1-1.2); Monocytes Percent Auto 7.2 % (2-11); Neutrophils Absolute Auto 4.4 x10*3/uL (2.0-8.3); Neutrophils Percent Auto 62.1 % (45-73); Platelet Count 242 X10*3/uL (160-400); Red Blood Count 4.01 X10*6/uL (4.20-5.50); Red Cell Distribution Width 13.2 % (11.0-16.0)
[2025-01-04 15:08] LABS: Alanine Aminotransferase 14 U/L (0-31); Albumin Level 4.3 g/dL (3.5-5.0); Alkaline Phosphatase 81 U/L (39-117); Anion Gap 13 (12-20); Aspartate Amino Transferase 22 U/L (5-31); Bilirubin Total 0.3 mg/dL (0.0-1.0); Blood Urea Nitrogen 29 mg/dL (9-16); Calcium 9.5 mg/dL (8.4-10.2); Carbon Dioxide 26 mmol/L (22-29); Chloride 107 mmol/L (96-108); Creatinine Clr Calc Pharmacy 40.3; Estimated Glomerular Filt Rate 45; Glucose Random 191 mg/dL (60-115); Lipase 11 U/L (8-78); Magnesium 2.1 mg/dL (1.6-2.6); Sodium 141 mmol/L (135-145); Total Protein 7.9 g/dL (6.5-8.0)
[2025-01-04 16:27] VITALS: BP 124/66; PULSE 61; RESP 12; O2SAT 98
[2025-01-04] MEDS: 0.9 % Sodium Chloride 1,000 ML 999 ML IV (17:01)
[2025-01-04] MEDS: ondansetron HCL 4 MG/2 ML VIAL IVPUSH (17:08)
[2025-01-04] MEDS: Morphine Sulfate 2 MG/ML CARTRIDGE IVPUSH (17:08)
--- NOTE | 2025-01-04 17:09 | PC.NURSE ---
pt difficult stick, multiple nurses to obtain IV, iv was inserted, labs were previously drawn, pt medicated per orders, awaiting radiology, plan of care ongoing
[2025-01-04] MEDS: iohexoL 350 MG/ML 100 ML INFUS..BTL IV (17:42)
[2025-01-04 18:19] LABS: Appearance Urine Clear; Color Urine Yellow; Glucose Urine UA Negative (Negative); Leukocyte Esterase Urine Moderate (2+) (Negative); Nitrite Urine Negative (Negative); UMIC TRIGGER UACC YES; Urine Blood Negative (Negative); Urine Ketones Negative (Negative); Urine Protein Negative (Neg-Trace)
[2025-01-04 18:32] LABS: RBC Urine 0-2 /HPF (0-2); WBC Urine 0-5 /HPF (0-5)
[2025-01-04 18:33] LABS: Bacteria Urine None Seen (None Seen); Hyaline Casts Urine 0-2 /LPF (0-2); Squamous Epithelial Cell Urine 0-2 /HPF (0-2); UACC Culture Trigger YES
[2025-01-04 18:34] VITALS: BP 124/68; PULSE 80; RESP 14; O2SAT 97
--- NOTE | 2025-01-04 19:47 | PC.NURSE ---
US being performed at bedside
--- NOTE | 2025-01-04 19:52 | MHC.EDTECH ---
This etch took over care of pt at 1900, rounded and introduced self to pt ,patient appears comfortable call meza in reach
[2025-01-04 20:03] VITALS: BP 128/68; PULSE 66; RESP 18; TEMP 36.6; O2SAT 96
[2025-01-04 22:01] VITALS: BP 128/68; PULSE 66; RESP 18; TEMP 36.6; O2SAT 96
== END 2025-01-04 21:30 | disposition home or self-care (01) ==
PROVIDERS: Physician Assistant Medical; Emergency Provider Emergency Medicine Emergency Medical Services; PCP Internal Medicine
DX: K59.00 Constipation, unspecified (principal); R10.30 Lower abdominal pain, unspecified; E11.9 Type 2 diabetes mellitus without complications; E78.5 Hyperlipidemia, unspecified; I48.91 Unspecified atrial fibrillation; J45.909 Unspecified asthma, uncomplicated; Z79.02 Long term (current) use of antithrombotics/antiplatelets; Z79.899 Other long term (current) drug therapy; Z79.01 Long term (current) use of anticoagulants
CPT/HCPCS: 36415; 74018; 74177; 76705; 80053; 81001; 83690; 83735; 85025; 87086; 96361; 96374; 96375; 99284; J2270; J2405; Q9967

== ENCOUNTER → 2025-01-04 14:22 | Outpatient (BNV) | payer MEDICARE, MEDICAID, SELFPAY | PROVIDERS: PCP Internal Medicine; Visit Provider Radiology Diagnostic Radiology | DX: K56.41 Fecal impaction (principal); R10.30 Lower abdominal pain, unspecified; R11.0 Nausea; K59.00 Constipation, unspecified; Z87.09 Personal history of other diseases of the respiratory system | CPT/HCPCS: 74018; 74177; 76705 ==

== ENCOUNTER → 2025-03-21 14:47 | Outpatient (BNVA) | payer MEDICARE, MEDICAID, SELFPAY | PROVIDERS: PCP Internal Medicine; Visit Provider Internal Medicine | DX: Z13.89 Encounter for screening for other disorder (principal) ==

== ENCOUNTER 2025-03-27 12:26 | Outpatient (AMB) | payer MEDICARE, MEDICAID, SELFPAY ==
[2025-03-27 12:27] VITALS: BP 111/53; PULSE 69; BMI 26.7
--- NOTE | 2025-03-27 12:27 | MHC.OFFVIS ---
Vital Signs 03/27/25 12:27 Height 4 ft 10 in Weight 127 lb 13.89 oz BMI 26.7 BP 111/53 L Blood Pressure Location Lt brachial Position Sitting Pulse 69 Intake Visit Reasons: jm pt GERD, ibs-refill omeprazole Intake Note: Jack presents in the office as a follow up Michelle patient for GERD and IBS. CC: She states that she has acid reflux a lot and she is not sure that omeprazole works. Allergies Chocolate Allergy (Mild, Verified 03/27/25 12:33) Rash environmental allergies Allergy (Mild, Verified 03/27/25 12:33) Itchy Eyes erythromycin base [Erythromycin Base] Adverse Reaction (Intermediate, Verified 03/27/25 12:33) GI UPSET ibuprofen [From Motrin] Adverse Reaction (Intermediate, Verified 03/27/25 12:33) Gastrointestinal Upset, increases pain Medication List - Last Reconciled 03/27/25 by Christina Lynch CNP albuterol sulfate 90 mcg/actuation 2 puffs inhalation Q4-6H PRN apixaban (Eliquis) 5 mg PO BID cholecalciferol (vitamin D3) 25 mcg PO DAILY docusate sodium (Colace) 100 mg PO BID PRN dronedarone (Multaq) 400 mg PO BID 90 days ferrous sulfate 325 mg PO BID guaifenesin ER (Mucinex) 600 mg PO Q12H PRN lactulose 15 mL PO BEDTIME PRN loratadine 10 mg PO BEDTIME meclizine 25 mg PO BID PRN 90 days melatonin 5 mg PO .qhs PRN 30 days montelukast 10 mg PO BEDTIME octreotide,microspheres ER 30 mg IM Q4W omeprazole 40 mg PO DAILY oxybutynin chloride ER 10 mg PO BEDTIME simvastatin 20 mg PO BEDTIME HPI HPI jm pt GERD, ibs-refill omeprazole: Details: Patient is a 64-year-old femal with PMH of developmental delayed, vitamin d deficiency, hyperlipidemia, overactive bladder and GERD. Last visit with RAVINDER Villar 12/01/2022 for follow-up after colonoscopy. She is here today for further evaluation of acid reflux and medication management. Jack reports dealing with acid reflux for several years, currently managed with 20 mg Omeprazole taken once daily in the morning on an empty stomach. Jack experiences periods when symptoms are controlled, but occasionally has exacerbations even with the same diet. For example, some days consuming the same meal, such as [place] fries, can lead to symptoms, while other days it does not. Jack takes Omeprazole as needed but still has episodes of discomfort. The patient is uncertain whether symptoms occur daily but takes the medication daily to manage condition. Various foods seem to trigger symptoms inconsistently. Reports episodic constipation managed well with current as needed bowel regimen. Patient denies: fever/chills, n/v, appetite changes, regurgitation,dysphasia, unintentional wt loss, ab pain or melena/hematochezia. Social History: - Diet: Receives Meals on Wheels, supplemented with home-bought fruits and vegetables. Occasionally dines out at restaurants like [employer]. Drinks milk, water, tea, juice, and Gatorade. Supplements diet with Ensure and breakfast bars. 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 [facility] Medical History History of COVID-19 COVID-19 vaccine administered Constipation Afib Overactive bladder Environmental allergies Neuroendocrine neoplasm of gastrointestinal tract Lipid disorder Colon polyp Gastric polyp Anemia Vitamin D deficiency Hyperlipemia Diabetes Arthritis IBS (irritable bowel syndrome) GERD (gastroesophageal reflux disease) Asthma Surgical History History of incisional hernia repair (05/15/24) Hx of resection of small bowel H/O exploratory laparotomy (09/20/22) History of colonoscopy History of esophagogastroduodenoscopy Family History Father Afib Pneumonia Brother Afib Heart disease Brother Heart disease Mother Unknown family medical history Social History Household Members: None Housing: Apartment Housing Other:: mental health association [facility] Are you a primary wound care rn to a significant other at home: No Do you presently have 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 or 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 ([employer]) Alcohol intake: never Comment: TAB alarm Patient Tobacco Use Status: Never used Tobacco e-Cigarette/Vaping Use: Never Used Second Hand Smoke Exposure: No Advance Directives Date on File: 12/01/21 service: No Current occupational status: disabled Cognitive needs: No Hearing needs: No Vision needs: Yes Review of Systems Const Reports as per HPI ENT Reports as per HPI Card Reports as per HPI Resp Reports as per HPI GI Reports as per HPI Reports as per HPI Physical Exam Vital Signs: Last Vital Signs Pulse 69 03/27/25 12:27 BP 111/53 L 03/27/25 12:27 BMI result Body Mass Index 26.7 Const General: healthy appearing, no acute distress and well developed Nutritional Appearance: well nourished Orientation/consciousness: patient oriented x3 HEENT Head: Yes normal to inspection, Yes normocephalic and Yes atraumatic Face and sinus: Yes normal facial exam Eyes General: appearance normal, both eyes and all related structures Neck Neck: Yes normal visual inspection Resp Effort & Inspection: normal respiratory effort, able to speak in complete sentences, no tracheal deviation and symmetric chest movement Auscultation: clear to auscultation bilaterally Cardio Jugular venous distension: no JVD Rate: regular rate Rhythm: regular rhythm Heart sounds: S1 normal heart sound present, S2 normal heart sound present, no gallops and no murmurs GI Inspection: Yes normal to inspection, No distended and Yes scar (mid ab surgical scar ) Palpation (GI): Soft to palpation, not firm, nontender and No hepatosplenomegaly present Auscultation: normal bowel sounds Neuro General: patient oriented x3 Gait exam (Neuro): Normal gait present Psych Appearance: grossly normal Mental Status: mental status grossly normal Speech and movement: Normal speech and movement present Affect: normal affect Attitude: cooperative Thought process: Normal thought process present Thought content: Normal thought content present Insight: Good insight present (Psych) Judgement: Good judgement present (Psych) Results Reviewed Results Reviewed: Operative Note Date of Service: 11/18/22 Narrative: Pre-op diagnosis: Colon cancer screening, IBS Post-op diagnosis: other (Diverticulosis) Surgeon: Samuel Watters MD COLONOSCOPY TILL CECUM WITH BIOPSIES Procedure: The patient was placed in the left lateral decubitis position and pre-procedure medications were administered. After a digital rectal examination of the ano-rectum, the video colonoscope was inserted into the rectum and advanced through the colon to the cecum. The colonoscope was slowly withdrawn in a retrograde panoramic fashion and the colon mucosa was carefully examined including a retroflexed view of the rectum. Findings and interventions are described below. Procedure Difficulty: Colon was long and tortuous and there was recurrent loop formation. Patient was placed in the supine position and LLQ pressure was applied to intubate the ascending colon Findings: Terminal Ileum: Not evaluated Cecum: Normal Ascending Colon: Normal Transverse Colon: Normal Descending Colon: Normal Sigmoid Colon: Moderate diverticulosis Rectum: Normal Ano-rectum: Normal Colon preparation: Good after copious irrigation Impression and Post Procedure Diagnosis: Colonoscopy Findings: No polyps were detected. Random biopsies were obtained from the right and left colon to check for microscopic colitis Moderate diverticulosis seen in the sigmoid colon Plan: Await pathology results Patient has an appointment on 12/01/22 in the GI Clinic with RAVINDER Rivers. Repeat Colonoscopy in 10 years if biopsies are normal. Above findings were reviewed with the patient and diverticulosis handout was given in the discharge area PATHOLOGY Collected: 11/18/22 Location: [facility] Received: 11/18/22 Diagnosis A. Colon, random right, biopsy: Colonic mucosa within normal limits; negative for microscopic colitis. B. Colon, random left, biopsy: Colonic mucosa within normal limits; negative for microscopic colitis. Clinical History Pre-Op Dx: Colon cancer screening, IBS Post-Op Dx: Diverticulosis, r/o microscopic colitis EGD with biopsy, colonoscopy 01/13/2010 gastric polyp; hyperplastic polyp with focal erosion, inflammation and edema. postop diagnosis: Large, gastric polyp, hiatal hernia and normal colon Assessment & Plan Assessment & Plan (1) GERD (gastroesophageal reflux disease): Comment: EGD with biopsy, colonoscopy 01/13/2010 -gastric polyp; hyperplastic polyp with focal erosion, inflammation and edema. Code(s): K21.9 - Gastro-esophageal reflux disease without esophagitis Category: Medical Qualifiers: Esophagitis presence: esophagitis presence not specified Qualified Code(s): K21.9 - Gastro-esophageal reflux disease without esophagitis Plan: last EGD as above. Discussed repeating upper endoscopy, however deferred due to subjective reports of prior intolerance, may reconsider if symptoms worsen or alarm features develop. Medications: Increase Omeprazole to 40 mg QD (may use two 20 mg tabs until supply exhausted, then switch to 40 mg tab). Encouraged to take omeprazole as prescribed, taken at least 30-60 minutes before a meal. Education on GERD prevention : -Advised against heavy meals; encouraged small, frequent meals instead of large ones. - Instructed to remain upright for 2?3 hours after eating. - Advised to avoid late-night meals, spicy foods, caffeine, alcohol, known dietary triggers, and tight-fitting clothing. - Emphasis placed on gradual implementation of lifestyle changes to improve adherence and symptom control. (2) Constipation: Code(s): K59.00 - Constipation, unspecified Category: Medical Qualifiers: Constipation type: unspecified constipation type Qualified Code(s): K59.00 - Constipation, unspecified Plan: intermittent and stable. Medications: Continue Colace PRN at first sign of decreased BM; lactulose PRN as backup if needed. Reinforced lifestyle modifications to promote regularity: -higher fiber diet, examples provided -adequate hydration with water -150 minutes of moderate intensity exercise per week, as tolerated Plan follow-up in 8 weeks or sooner as needed Time: I spent a total of 60 minutes on the date of encounter which includes: Preparing to see the patient (reviewed previous documentation, test results and medical history) Performing a medically appropriate exam and/or evaluation Ordering medications, tests, and procedures Documenting clinical information in the health record Medications: New omeprazole 40 mg PO DAILY 90 caps 1RF Christina Lynch CNP Changed From docusate sodium (Colace) 100 mg PO BID 60 caps 1RF constipation To docusate sodium (Colace) 100 mg PO BID PRN Michelle Savage PA-C From guaifenesin ER (Mucinex) 600 mg PO Q12H 7 days 14 tabs 0RF congestion To guaifenesin ER (Mucinex) 600 mg PO Q12H PRN Patti Crabtree MD Discontinued omeprazole Take one tablet daily, best taken 30-60 minutes before meals. Discontinued Reason: Doctor's Order 20 mg PO DAILY 30 caps 0RF Coding Level of Care Code Established Pt Est Pt Level 5 (83655) Patient Type Established Diagnoses Gastroesophageal reflux disease, unspecified whether esophagitis present K21.9 Esophagitis presence: esophagitis presence not specified Constipation K59.00 Constipation type: unspecified constipation type
--- OUTSIDE RECORDS SUMMARY | 2025-03-27 12:28 | XMS_ITS | Clinical Summary ---
Author Organization [address] [facility] Address [address] [place] [address] Phone Care Team Providers Care Folder Tier Name Role Phone Patti Crabtree MD Primary Care Provider [phone] Allergies Active Allergy Reactions Criticality Noted Date Comments Chocolate 01/18/2012 Erythromycin 01/18/2012 Ibuprofen 01/18/2012 Medications hydrocodone/sangeeta taminophen (LORCET HD ORAL) Take 1 capsule by mouth every 6 hours as needed. Active ascorbic acid, vitamin C, 500 mg capsule Take by mouth. Active dabigatran etexilate (PRADAXA) 150 mg capsule Take 150 mg by mouth 2 times daily. Active dronedarone (MULTAQ) 400 mg tablet Take 400 mg by mouth 2 times daily. Active meclizine (ANTIVERT) 25 mg tablet Take by mouth. Active medroxyPROGESTE Larry (PROVERA) 10 mg tablet Take 10 mg by mouth daily. Active metFORMIN (FORTAMET) 500 mg 24 hr tablet Take 500 mg by mouth daily (with breakfast). Active montelukast (SINGULAIR) 10 mg tablet Take 10 mg by mouth at bedtime. Active omeprazole (PriLOSEC) [address] capsule Take 20 mg by mouth daily. Active oxyBUTYnin XL (DITROPAN-XL) 10 mg 24 hr tablet Take 10 mg by mouth daily. Active simvastatin (ZOCOR) 20 mg tablet Take 20 mg by mouth at bedtime. 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 Paroxysmal A-fib ([facility], [facility] [place]) 12/29 Overview (12/25/2024): suppressed on Multaq Medical History Medical History Date Comments Hypertension 01/18/2012 DX:Hypertension Historical Medical DX 01/18/2012 DX:Hyperli pidemia LDL goal < 70 DM type 2 (diabetes mellitus , type 2) ([facility] [place], [facility] [place]) 01/18/2012 DX:DM type 2 (diabetes naya itus, type 2) ([facility]) Paroxysmal A-fib ([facility] V2 4, [facility] V28) 01/18/2012 DX:Paroxysmal A-fib ([facility]) Esophageal reflux 01/18/2012 DX:Esophageal reflux H/O: GI bleed 01/18/2012 DX:H/O: GI bleed Anemia 01/18/2012 DX:Anemia Dysfunctional uterine bleeding 01/18/2012 D X:Dysfunctional uterine bleeding Down syndrome 01/18/2012 DX:Down syndrome 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) Family History Medical History Relation Name Comments Other: afib Father Relation Name Status Comments Father Social History Tobacco Use Types Packs/Day Years Used Date Smoking Tobacco: Never Alcohol Use Standard Drinks/Week Comments Not Asked 0 (1 standard drink = 0.6 oz pur e alcohol) Comments Unknown Sex and Gender Information Value Date Recorded Sex Assigned at Not on file Legal Sex Female 10:29 PM EST Gender Identity Not on file Sexual Orientation Not on file Obstetrics History Plan of Treatment Upcoming Encounters Date Type Department Care Team ([facility] st Contact Info) Description 05/21/2025 2:30 PM EDT Consult Orthopedic Surgery - [place] [address] [address] Venancio Vásquez, DPM [address] [address] Health Maintenance Due Date Last Done Comments Breast Cancer Screening 1959 Diabetes: Annual GFR (Glomer ular Filtration Rate) 1959 Diabetes: Annual Foot Exam 1969 Diabetes: Annual Retina Eye Exam 1969 DTaP,Tdap,and Td Vaccines (1 - Tdap) 1978 Pneumococcal Vaccine: 50+ Ye ars (1 of 2 - PCV) 1978 Pneumococcal Vaccine: Pediat rics (0 to 5 Years) and At-Risk Patients (6 to 64 Years) (1 of 2 - PCV) 1978 Cervical Cancer Screening: P ap Smear 1980 Zoster Vaccines (1 of 2) 2009 COVID-19 Vaccine (2023-2 5 season) 2024 Cholesterol Screening (Lipid Panel) 12/19/2024 Colorectal Cancer Screening: Colonoscopy 12/19/2024 Depression Screening 12/19/2024 Diabetes: Annual Urine Albumin-Creatinine Ratio (uACR) 12/19/2024 Diabetes: Blood Sugar Contro l Test (HGBA1C) 12/19/2024 Falls Risk Assessment 12/19/2024 Hepatitis C Screening 12/19/2024 Hypertension/CHF/CAD Annual BMP Blood Test 12/19/2024 Medicare Annual Wellness Visit 12/19/2024 Osteoporosis Screening (Bone Density Screening) 12/19/2024 Social Influencers of Health Screening 12/19/2024 Influenza Vaccine (Season Ended) 2025 RSV Immunization Adult Patie nts (1 - 1-dose 75+ series) 2034 HIB Vaccines Aged Out No longer eligi ble based on patient's age to complete this topic HPV Vaccines Aged Out No longer eligi ble based on patient's age to complete this topic Hepatitis A Vaccines Aged Out No long er eligible based on patient's age to complete this topic Hepatitis B Vaccines Aged Out No long er eligible based on patient's age to complete this topic IPV Vaccines Aged Out No longer eligi ble based on patient's age to complete this topic MMR Vaccines Aged Out No longer eligi ble based on patient's age to complete this topic Meningococcal ACWY Vaccine Aged Out N o longer eligible based on patient's age to complete this topic Meningococcal B Vaccine Aged Out No l onger eligible based on patient's age to complete this topic RSV Immunization Patients Un rafi 20 months Aged Out No longer eligible b ased on patient's age to complete this topic Varicella Vaccines Aged Out No longer eligible based on patient's age to complete this topic Insurance MEDICARE MEDICAID - [place] Care Teams Folder Tier Relationship Specialty Start Date End Date Patti Crabtree MD [address] [place] [phone] PCP - General Internal Medicine 12/19/24
== END 2025-03-27 13:20 | disposition home or self-care (01) ==
PROVIDERS: PCP Internal Medicine; Visit Provider Nurse Practitioner Family
DX: K21.9 Gastro-esophageal reflux disease without esophagitis (principal); K59.00 Constipation, unspecified
CPT/HCPCS: 99215

== ENCOUNTER → 2025-03-27 12:26 | Outpatient (BNVA) | payer MEDICARE, MEDICAID, SELFPAY | PROVIDERS: PCP Internal Medicine; Visit Provider Nurse Practitioner Family | DX: K21.9 Gastro-esophageal reflux disease without esophagitis (principal); K59.00 Constipation, unspecified | CPT/HCPCS: 99212 ==

== ENCOUNTER 2025-04-01 16:12 | Outpatient (REF) | payer MEDICARE, MEDICAID, SELFPAY ==
--- OUTSIDE RECORDS SUMMARY | 2025-04-01 17:09 | XMS_ITS | Clinical Summary ---
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/18/2012 Paroxysmal A-fib [place] [place] [facility] [place] 12/29 Overview (12/25/2024): suppressed on Multaq Medical History Medical History Date Comments Hypertension 01/18/2012 DX:Hypertension Historical Medical DX 01/18/2012 DX:Hyperli pidemia LDL goal < 70 DM type 2 (diabetes mellitus , type 2) [place] [place] [facility] [place] 01/18/2012 DX:DM type 2 (diabetes naya itus, type 2) ([facility]) Paroxysmal A-fib [place] [place] 4, [facility] [place] 01/18/2012 DX:Paroxysmal A-fib ([facility]) Esophageal reflux 01/18/2012 DX:Esophageal reflux [...] Upcoming Encounters Date Type Department Care Team ([facility] st Contact Info) Description 05/21/2025 2:30 PM EDT Consult Orthopedic Surgery - [place] [address] [address] Venancio Vásquez, DPM [address] [address] Health Maintenance Due Date Last Done Comments [...] Insurance MEDICARE MEDICAID - [place] Care Teams Yarn Salvager Relationship Specialty Start Date End Date Patti Crabtree MD [address] [place] [phone] PCP - General Internal Medicine 12/19/24
== END 2025-04-01 16:13 | disposition home or self-care (01) ==
LOC: HO.MAMMO 16:12
PROVIDERS: PCP Internal Medicine; Visit Provider Internal Medicine
DX: Z12.31 Encounter for screening mammogram for malignant neoplasm of breast (principal)
CPT/HCPCS: 77063; 77067

== ENCOUNTER → 2025-04-01 16:30 | Outpatient (BNV) | payer MEDICARE, MEDICAID, SELFPAY | PROVIDERS: PCP Internal Medicine; Visit Provider Internal Medicine | DX: Z12.31 Encounter for screening mammogram for malignant neoplasm of breast (principal) | CPT/HCPCS: 77063; 77067 ==

== ENCOUNTER 2025-05-21 12:34 | Outpatient (REF) | payer MEDICARE, MEDICAID, SELFPAY ==
--- NOTE | ~2025-05-21 | MM_ITS ---
EXAMINATION: MM DIAGNOSTIC DIGITAL MAMMOGRAPHY, RIGHT CLINICAL INFORMATION: Call back from screening for grouped calcifications in the upper central breast anterior depth. COMPARISON: Mammography: relevant priors on PACS. TECHNIQUE: Digital mammography is performed in craniocaudal and mediolateral oblique views along with computer-aided detection (CAD). FINDINGS: There are scattered areas of fibroglandular density (ACR BI-RADS breast composition Category b). Grouped punctate calcifications in the upper central breast anterior depth. No suspicious masses or other abnormal findings. Results are provided to the patient at time of visit by the technologist. MM/MM added views RT IMPRESSION: Grouped punctate calcifications in the upper central breast anterior depth some of which have been seen on prior mammograms without magnification views. Probably benign. Recommend six-month follow-up with magnification views for further evaluation of stability. ASSESSMENT: BI-RADS BI-RADS 3 - Probably benign finding(s) - 6 month follow-up suggested RECOMMENDATION: 6 Month F/U This patient's information was entered into a reminder system with a target due date for their next mammogram. Electronically signed by: Lashay Gusman DO 05/21/2025 01:30 PM EDT
--- OUTSIDE RECORDS SUMMARY | 2025-05-21 12:57 | XMS_ITS | Clinical Summary ---
Author Organization [facility] Address [address] [facility] [address] [place] [id number] Phone Care Team Providers Care Door Framer Name Role Phone Patti Crabtree MD Primary Care Provider [phone] Allergies Active Allergy Reactions Criticality Noted Date Comments Chocolate Rash Low 01/26/2023 Erythromycin GI Upset 01/30/2021 Sulfamethoxazole-Trimethoprim GI Upset 2022 Medications ELIQUIS 5 mg tablet Take 5 mg by mouth 2 (two) times a day. 3 Active VITAMIN D3 25 mcg (1,000 unit) capsule Take by mouth nightly at bedtime. 3 Active docusate sodium (COLACE) 100 MG capsule TAKE TWO CAPSULE BY MOUTH AT BEDTIME NEEDED FOR CONSTIPATION STOP IF DIARREHA 2 Active MULTAQ 400 mg tablet Take 400 mg by mouth 2 (two) times a day. 3 Active FEROSUL 325 mg (65 mg iron) tablet Take 1 tablet by mouth 2 (two) times a day. 3 Active loratadine (CLARITIN) 10 mg tablet Take 10 mg by mouth nightly at bedtime. at bedtime. 3 Active meclizine (ANTIVERT) 25 mg tablet TAKE 1 TABLET BY MOUTH DAILY NEEDED FOR MOTION SICKNESS 3 Active oxybutynin (DITROPAN-XL) 10 MG 24 hr tablet Take 10 mg by mouth daily. 3 Active omeprazole (PRILOSEC) 20 MG capsule Take 20 mg by mouth daily. 3 Active simvastatin (ZOCOR) 20 MG tablet Take 20 mg by mouth nightly at bedtime. Active Active Problems No known active problems Immunizations Immunization Administration Dates Next Due Pneumococcal polysaccharide PPSV23 12/28/2006, Social History Tobacco Use Types Packs/Day Years Used Date Smoking Tobacco: Never Passive Smoke Exposure: Never Smokeless Tobacco: Never Education Answer Date Recorded Are you interested in more education? Not on brad e 02/25/2023 Are you concerned about learning? Not on file 02/25/2023 No 02/25/2023 No 02/25/2023 Digital Access Answer Date Recorded No 03/26/2023 No 03/26/2023 No 03/26/2023 Reliable internet access at home? Not on file 03/26/2023 Device with a working camera? Not on file Comments Unknown Sex and Gender Information Value Date Recorded Sex Assigned at Not on file Legal Sex Female 12:27 PM EDT Gender Identity Not on file Sexual Orientation Not on file Last Filed Vital Signs Vital Sign Reading Time Taken Comments Blood Pressure 117/73 01/26/2023 12:50 PM EDT Pulse 74 01/26/2023 12:50 PM EDT Temperature 36.6 C (97.8 F) 01/26/2023 12:50 PM EDT Respiratory Rate 18 01/26/2023 12:50 PM EDT Oxygen Saturation 98% 01/26/2023 12:50 PM EDT Inhaled Oxygen Concentration - - Weight 56.2 kg (124 lb) 01/26/2023 12:50 PM EDT Height 147.3 cm (4' 10 ) 01/26/2023 12:50 PM EDT Body Mass Index 25.92 01/26/2023 12:50 PM EDT Plan of Treatment Health Maintenance Due Date Last Done Comments Adult Td,Tdap Booster 1959 CREATININE LEVEL 1959 LIPID PANEL 1959 DEPRESSION SCREENING 1971 HEPATITIS C SCREENING 1977 HIV ONE-TIME SCREENING (18-6 5 YEARS) 1977 SCREENING FOR DIABETES 1994 MAMMOGRAM 1999 COLOGUARD 2004 COLONOSCOPY 2004 COLORECTAL CANCER SCREENING 2004 FIT TEST 2004 FOBT 2004 SIGMOIDOSCOPY 2004 VIRTUAL COLONOSCOPY 2004 PNEUMOCOCCAL VACCINES (50+ years) (2 of 2 - PCV) 2009 12/28/2006, 12/28/2006 ZOSTER VACCINES (1 of 2) 2009 COVID-19 VACCINE ( - 2023-2 5 season) 2024 OSTEOPOROSIS SCREENING INITI AL (ONE-TIME) 2024 RSV VACCINE (1 - 1-dose 75+ series) 2034 SMOKING STATUS SCREENING (On ce After 26 Yrs) Completed 01/26/2023 HEPATITIS A VACCINES Aged Out No long er eligible based on patient's age to complete this topic HIB VACCINES Aged Out No longer eligi ble based on patient's age to complete this topic MENINGOCOCCAL VACCINES (ACWY) Aged Out No longer eligible based on patient's age to complete this topic MENINGOCOCCAL VACCINES (B) Aged Out N o longer eligible based on patient's age to complete this topic Medical Devices Not on file Insurance MEDICARE PART A & B [facility] MEDICARE PART A & [place] B [facility] MEDICARE PART A & [place] B [facility] Care Teams Door Framer Relationship Specialty Start Date End Date Patti Crabtree MD [address] [address] PCP - General Internal Medicine 01/26/23 Additional Source Comments The information contained in this document represents components of the legal health record. It is not the complete legal health record.[facility]
--- OUTSIDE RECORDS SUMMARY | 2025-05-21 12:57 | XMS_ITS | Clinical Summary ---
Author Organization [address] [facility] Address [address] [place] [address] Phone Care Team Providers Care Powerhouse Helper Name Role Phone Patti Crabtree MD Primary Care Provider [phone] Allergies Active Allergy Reactions Criticality Noted Date [...] type 2 (diabetes mellitus , type 2) ([facility] V24, [facility] V28) 01/18/2012 Down syndrome 01/18/2012 Dysfunctional uterine bleeding 01/18/2012 Anemia 01/18/2012 Esophageal reflux 01/18/2012 Mild intellectual disability 01/18/2012 Paroxysmal A-fib ([facility] V24, [facility] V28) 12/29 Overview (12/25/2024): suppressed on Multaq Medical History Medical History Date Comments Hypertension 01/18/2012 DX:Hypertension Historical Medical DX 01/18/2012 DX:Hyperli pidemia LDL goal < 70 DM type 2 (diabetes mellitus , type 2) ([facility] V24, [facility] V28) 01/18/2012 DX:DM type 2 (diabetes naya itus, type 2) ([facility]) Paroxysmal A-fib ([facility] V2 4, [facility] V28) 01/18/2012 DX:Paroxysmal A-fib ([facility]) Esophageal reflux 01/18/2012 DX:Esophageal reflux H/O: GI [...] Upcoming Encounters Date Type Department Care Team ([facility] st Contact Info) Description 05/21/2025 2:30 PM EDT Consult Orthopedic Surgery - [place] [address] [phone] Venancio Vásquez, DPM [address] [address] Health Maintenance Due Date Last Done Comments Breast Cancer Screening 1959 Diabetes: Annual GFR (Glomer ular Filtration Rate) 1959 Diabetes: Annual Foot Exam 1969 Diabetes: Annual Retina Eye Exam 1969 DTaP,Tdap,and Td Vaccines (1 - Tdap) 1978 Pneumococcal Vaccine: 50+ Ye ars (1 of 2 - PCV) 1978 Cervical Cancer Screening: P ap Smear 1980 Zoster Vaccines (1 of 2) 2009 COVID-19 Vaccine ( - 2023-2 5 season) 2024 Depression Screening 10/30/2024 Cholesterol Screening (Lipid Panel) 12/19/2024 Colorectal Cancer Screening: Colonoscopy 12/19/2024 Diabetes: Annual Urine Albumin-Creatinine Ratio (uACR) 12/19/2024 Diabetes: Blood Sugar Contro l Test (HGBA1C) 12/19/2024 Falls Risk Assessment 12/19/2024 Hepatitis C Screening 12/19/2024 Hypertension/CHF/CAD Annual BMP Blood Test 12/19/2024 Medicare Annual Wellness Visit 12/19/2024 Osteoporosis Screening (Bone Density Screening) 12/19/2024 Social Influencers of Health Screening 12/19/2024 Influenza Vaccine (#1) 2025 RSV Immunization Adult Patie nts (1 [...] Insurance MEDICARE MEDICAID - [place] Care Teams Powerhouse Helper Relationship Specialty Start Date End Date Patti Crabtree MD [address] [place] [address] PCP - General Internal Medicine 12/19/24
== END 2025-05-21 12:35 | disposition home or self-care (01) ==
LOC: HO.MAMMO 12:34
PROVIDERS: Visit Provider Internal Medicine
DX: R92.1 Mammographic calcification found on diagnostic imaging of breast (principal)
CPT/HCPCS: 77065

== ENCOUNTER → 2025-05-21 13:00 | Outpatient (BNV) | payer MEDICARE, MEDICAID, SELFPAY | PROVIDERS: Visit Provider Internal Medicine | DX: R92.1 Mammographic calcification found on diagnostic imaging of breast (principal) | CPT/HCPCS: 77065; G0279 ==

== ENCOUNTER 2025-05-22 12:03 | Outpatient (AMB) | payer MEDICARE, MEDICAID, SELFPAY ==
--- NOTE | 2025-05-22 12:06 | A.OFFVIS_ITS ---
Vital Signs 05/22/25 12:08 05/22/25 12:52 Height 4 ft 10 in Weight 126 lb BMI 26.3 BP 104/51 L Blood Pressure Location Lt brachial Position Sitting Pulse 108 H 89 Pulse Source Pulse Oximeter Pulse Oximetry (%) 98 Oxygen Delivery Method Room Air Intake Visit Reasons: 8 week follow up GERD Intake Note: Patient 8 week follow up GERD and Constipation. Patient cc: swallowing difficulties on and off with med, GERD, denies any other GI issues. Hogshead Stock Clerk Required: No Accompanied by: Self / Same As Patient Allergies Chocolate Allergy (Mild, Verified 05/22/25 12:08) Rash environmental allergies Allergy (Mild, Verified 05/22/25 12:08) Itchy Eyes erythromycin base (Erythromycin Base) Adverse Reaction (Intermediate, Verified 05/22/25 12:08) GI UPSET ibuprofen (From Motrin) Adverse Reaction (Intermediate, Verified 05/22/25 12:08) Gastrointestinal Upset, increases pain HPI HPI 8 week follow up GERD: Details: Patient is a 64-year-old female with PMH of developmental delay, vitamin d deficiency, hyperlipidemia, overactive bladder and GERD. Last visit with RAVINDER Villar 12/01/2022 for follow-up after colonoscopy. Jack presents for follow-up eight weeks after initial evaluation for reflux and constipation. Previously on omeprazole 20mg daily, dose was increased to 40mg due to persistent symptoms. Jack has been adherent to the higher dose, reporting significant improvement in burning sensation and nausea, with fewer episodes overall. No current constipation; prior episodes were associated with straining and hemorrhoidal bleeding, which have resolved since bowel habits improved. No recent diarrhea or blood in stool. Jack describes ongoing difficulty swallowing large pills, despite attempts to cut them or use applesauce/pudding; this issue is specific to pills, as swallowing food and liquids is generally unproblematic except when food is not thoroughly chewed. Occasional coughing with eating, but no choking or frequent dysphagia with solids or liquids. Denies other acute GI or systemic symptoms. [facility] Medical History (Updated 05/22/25 @ 13:20 by Christina Lynch CNP) Dysphagia History of COVID-19 COVID-19 vaccine administered Constipation Afib Overactive bladder Environmental allergies Neuroendocrine neoplasm of gastrointestinal tract Lipid disorder Colon polyp Gastric polyp Anemia Vitamin D deficiency Hyperlipemia Diabetes Arthritis IBS (irritable bowel syndrome) GERD (gastroesophageal reflux disease) Asthma Surgical History History of incisional hernia repair (05/15/24) Hx of resection of small bowel H/O exploratory laparotomy (09/20/22) History of colonoscopy History of esophagogastroduodenoscopy Family History Father Afib Pneumonia Brother Afib Heart disease Brother Heart disease Mother Unknown family medical history Social History Household Members: None Housing: Apartment Housing Other:: mental health association [facility] Are you a primary hemodialysis patient care specialist to a significant other at home: No Do you presently have 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 or 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) Alcohol intake: never Comment: TAB alarm Patient Tobacco Use Status: Never used Tobacco e-Cigarette/Vaping Use: Never Used Second Hand Smoke Exposure: No Advance Directives Date on File: 12/01/21 service: No Current occupational status: disabled Cognitive needs: No Hearing needs: No Vision needs: Yes Review of Systems Const Reports as per HPI ENT Reports as per HPI Card Reports as per HPI Resp Reports as per HPI GI Reports as per HPI Reports as per HPI Physical Exam Vital Signs: Last Vital Signs Pulse 108 H 05/22/25 12:08 BP 104/51 L 05/22/25 12:08 Pulse Ox 98 05/22/25 12:08 Oxygen Delivery Method Room Air 05/22/25 12:08 BMI result Body Mass Index 26.3 Const General: healthy appearing, no acute distress and well developed Nutritional Appearance: average body habitus Orientation/consciousness: patient oriented x3 HEENT Head: Yes normal to inspection, Yes normocephalic and Yes atraumatic Face and sinus: Yes normal facial exam Eyes General: appearance normal, both eyes and all related structures Neck Neck: Yes normal visual inspection Resp Effort & Inspection: normal respiratory effort, able to speak in complete sentences, no tracheal deviation and symmetric chest movement Cardio Jugular venous distension: no JVD Neuro General: patient oriented x3 Gait exam (Neuro): Normal gait present Psych Appearance: grossly normal Mental Status: mental status grossly normal Speech and movement: Normal speech and movement present Affect: normal affect Attitude: cooperative Thought process: Normal thought process present Thought content: Normal thought content present Insight: Good insight present (Psych) Judgement: Good judgement present (Psych) Assessment & Plan Assessment & Plan (1) GERD (gastroesophageal reflux disease): Comment: EGD with biopsy, colonoscopy 01/13/2010 -gastric polyp; hyperplastic polyp with focal erosion, inflammation and edema. Code(s): K21.9 - Gastro-esophageal reflux disease without esophagitis Category: Medical Qualifiers: Esophagitis presence: esophagitis presence not specified Qualified Code(s): K21.9 - Gastro-esophageal reflux disease without esophagitis Plan: persistent reflux symptoms on omeprazole 20mg, which improved after increasing to 40mg daily. Symptoms are now well-controlled with medication and dietary modifications. No current alarm symptoms. Additional Testing: None indicated at this time; consider further workup if symptoms recur or worsen. Medications: Continue omeprazole 40mg PO daily. Encouraged to take omeprazole as prescribed, taken at least 30-60 minutes before a meal. Education on GERD prevention : -Advised against heavy meals; encouraged small, frequent meals instead of large ones. - Instructed to remain upright for 2?3 hours after eating. - Advised to avoid late-night meals, spicy foods, caffeine, alcohol, known dietary triggers, and tight-fitting clothing. - Emphasis placed on gradual implementation of lifestyle changes to improve adherence and symptom control. (2) Constipation: Code(s): K59.00 - Constipation, unspecified Category: Medical Qualifiers: Constipation type: unspecified constipation type Qualified Code(s): K59.00 - Constipation, unspecified Plan: intermittent and stable. Medications: Continue Colace PRN at first sign of decreased BM; lactulose PRN as backup if needed. Reinforced lifestyle modifications to promote regularity: -higher fiber diet, examples provided -adequate hydration with water -150 minutes of moderate intensity exercise per week, as tolerated (3) Dysphagia: Code(s): R13.10 - Dysphagia, unspecified Category: Medical Qualifiers: Dysphagia type: unspecified Qualified Code(s): R13.10 - Dysphagia, unspecified Plan: Difficulty swallowing large pills, not associated with solids or liquids, and no frequent choking or food impaction. Symptoms are intermittent and related to pill size/texture rather than true oropharyngeal or esophageal dysphagia. Additional Testing: Monitor for increased frequency or severity of swallowing difficulties; consider swallow study if frequent choking, food impaction, or difficulty with liquids develops. Lifestyle Changes: Continue to cut pills when possible; use applesauce or yogurt to aid swallowing; take small bites and chew food thoroughly. Follow-Up: Monitor symptoms; reassess if swallowing difficulties increase or become more frequen Plan Follow up in 6 months or sooner as needed Time: I spent a total of 25 minutes on the date of encounter which includes: Preparing to see the patient (reviewed previous documentation, test results and medical history) Performing a medically appropriate exam and/or evaluation Ordering medications, tests, and procedures Documenting clinical information in the health record Coding Level of Care Code Established Pt Est Pt Level 3 (87691) Patient Type Established Diagnoses Gastroesophageal reflux disease, unspecified whether esophagitis present K21.9 Esophagitis presence: esophagitis presence not specified Constipation K59.00 Constipation type: unspecified constipation type Dysphagia, unspecified type R13.10 Dysphagia type: unspecified
[2025-05-22 12:08] VITALS: BP 104/51; PULSE 108; O2SAT 98; BMI 26.3
--- OUTSIDE RECORDS SUMMARY | 2025-05-22 12:42 | XMS_ITS | Clinical Summary ---
Author Organization [facility] Address [address] [facility] [address] [place] [phone] Phone Care Team Providers Care Consolidator Name Role Phone Patti Crabtree MD Primary Care Provider [phone] Allergies Active Allergy Reactions Criticality Noted Date [...] file Insurance MEDICARE PART A & B [facility] MEDICARE PART A & [place] [facility] & [place] [facility] Care Teams Consolidator Relationship Specialty Start Date End Date Patti Crabtree MD [address] [facility] [facility] [address] PCP - General Internal Medicine 01/26/23 Additional Source Comments The information contained in this document represents components of the legal health record. It is not the complete legal health record.[facility]
--- OUTSIDE RECORDS SUMMARY | 2025-05-22 12:42 | XMS_ITS | Clinical Summary ---
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 Paroxysmal A-fib ([facility] V24, [facility] V28) 12/29 Overview (12/25/2024): suppressed on Multaq Encounters Date Type Department Care Team Description 05/21/2025 2:30 PM EDT Consult Orthopedic Surgery - [place] [address] [facility] [address] [place] [phone] Venancio Vásquez, DPM Dermatophytosis of nail (Primary Dx); Type 2 diabetes mellitus without complications ([facility] V24, [facility] V28); Hammer toe of left foot; Acquired hammer toe of right foot from Last 3 Months Medical History Medical History Date Comments Hypertension 01/18/2012 DX:Hypertension Historical Medical DX 01/18/2012 DX:Hyperli pidemia LDL goal < 70 DM type 2 (diabetes mellitus , type 2) ([facility] V24, [facility] V28) 01/18/2012 DX:DM type 2 (diabetes naya itus, type 2) ([facility]) Paroxysmal A-fib ([facility] V2 4, [facility] V28) 01/18/2012 DX:Paroxysmal A-fib ([facility]) Esophageal reflux 01/18/2012 DX:Esophageal reflux H/O: GI [...] Sexual Orientation Not on file Obstetrics History Last Filed Vital Signs Vital Sign Reading Time Taken Comments Blood Pressure - - Pulse - - Temperature - - Respiratory Rate - - Oxygen Saturation - - Inhaled Oxygen Concentration - - Weight 59 kg (130 lb) 05/21/2025 3:00 PM EDT Height 149.9 cm (4' 11 ) 05/21/2025 3:00 PM EDT Body Mass Index 26.26 05/21/2025 3:00 PM EDT Plan of Treatment Upcoming Encounters Date Type Department Care Team (Late st Contact Info) Description 08/21/2025 1:30 PM EDT Office Visit Orthopedic Surgery - [place] [address] [phone] Venancio Vásquez, DPM [address] [address] Health Maintenance Due Date Last Done Comments Breast Cancer Screening 1959 Diabetes: Annual GFR (Glomer ular Filtration Rate) 1959 Diabetes: Annual Foot Exam 1969 Diabetes: Annual Retina Eye Exam 1969 DTaP,Tdap,and Td Vaccines (1 - Tdap) 1978 Cervical Cancer Screening: P ap Smear 1980 Pneumococcal Vaccine: 50+ Ye ars (2 of 2 - PCV) 12/29/2007 12/28/2006 Zoster Vaccines (1 of 2) 2009 COVID-19 Vaccine (1 - 2023-2 5 season) 2024 Depression Screening [...] Insurance MEDICARE MEDICAID - [place] Care Teams Supplier Manager Relationship Specialty Start Date End Date Patti Crabtree MD [address] [place] [address] PCP - General Internal Medicine 12/19/24
[2025-05-22 12:52] VITALS: PULSE 89
== END 2025-05-22 13:08 | disposition home or self-care (01) ==
LOC: HO.HGI 12:04
PROVIDERS: PCP Internal Medicine; Visit Provider Nurse Practitioner Family
DX: K21.9 Gastro-esophageal reflux disease without esophagitis (principal); K59.00 Constipation, unspecified; R13.10 Dysphagia, unspecified
CPT/HCPCS: 99213

== ENCOUNTER → 2025-05-22 12:03 | Outpatient (BNVA) | payer MEDICARE, MEDICAID, SELFPAY | PROVIDERS: PCP Internal Medicine; Visit Provider Nurse Practitioner Family | DX: K21.9 Gastro-esophageal reflux disease without esophagitis (principal); K59.00 Constipation, unspecified; R13.10 Dysphagia, unspecified | CPT/HCPCS: 99212 ==

== ENCOUNTER 2025-06-18 11:19 | Outpatient (AMB) | payer MEDICARE, MEDICAID, SELFPAY ==
[2025-06-18 11:22] VITALS: BP 112/72; PULSE 76; O2SAT 97; BMI 26.5
--- NOTE | 2025-06-18 11:22 | A.OFFPC_ITS ---
Vital Signs 06/18/25 11:22 Height 4 ft 10 in Weight 127 lb BMI 26.5 BP 112/72 Blood Pressure Location Lt brachial Position Sitting Pulse 76 Pulse Source Pulse Oximeter Pulse Oximetry (%) 97 Oxygen Delivery Method Room Air Intake Visit Reasons: Medication review Medical Writer Required: No Accompanied by: Self / Same As Patient Allergies Chocolate Allergy (Mild, Verified 06/18/25 11:22) Rash environmental allergies Allergy (Mild, Verified 06/18/25 11:22) Itchy Eyes erythromycin base (Erythromycin Base) Adverse Reaction (Intermediate, Verified 06/18/25 11:22) GI UPSET ibuprofen (From Motrin) Adverse Reaction (Intermediate, Verified 06/18/25 11:22) Gastrointestinal Upset, increases pain Medication List - Last Reconciled 06/18/25 by Patti Crabtree MD albuterol sulfate 90 mcg/actuation 2 puffs inhalation Q4-6H PRN apixaban (Eliquis) 5 mg PO BID cholecalciferol (vitamin D3) 25 mcg PO DAILY docusate sodium (Colace) 100 mg PO BID PRN dronedarone (Multaq) 400 mg PO BID 90 days ferrous sulfate 325 mg PO BID guaifenesin ER (Mucinex) 600 mg PO Q12H PRN lactulose 15 mL PO BEDTIME PRN loratadine 10 mg PO BEDTIME meclizine 25 mg PO BID PRN 90 days melatonin 5 mg PO .qhs PRN 30 days montelukast 10 mg PO BEDTIME octreotide,microspheres ER 30 mg IM Q4W omeprazole 40 mg PO DAILY oxybutynin chloride ER 10 mg PO BEDTIME simvastatin 20 mg PO BEDTIME Tobacco use date assessed: 06/18/25 Fall risk assessment: No Falls in past year Last assessed Fall Risk: 06/18/25 Dental Screening Dental Screen Date: 06/18/25 Did you have a dental visit in the last 12 months?: Yes Did you have a dental problem in the last 6 months where you did not have access to dental care?: No Was dental information given to patient?: Patient has dentist HPI Medication review HPI Details Chief Complaint Patient presents for follow-up of chronic conditions and therapy cat letter renewal. History of Present Illness The patient is a 64-year-old female presenting for follow-up on chronic co nditions and therapy cat prescription renewal. Diet-controlled diabetes: - hemoglobin A1c is 6.5 today. - Patient manages diabetes with diet con trol and regular monitoring of glucose levels. Gait instability: - No specific timeline provided. - Patient experiences chronic vertigo th at may contribute to gait instability. Uses cane for stability Lipid disorder: - Managed by document control coordinator, currently on simvastatin 20 mg. Tolerating medication. Paroxysmal atrial fibrillation: - Managed by cardiology. - Patient currently on blood thinner (al iquis 0. mg). Metastatic carcinoid tumor: - Managed by oncology and gastroenterolo gy. Stable at this time Vitamin D deficiency: - continue supplement Chronic vertigo: - On meclizine 25 mg to manage dizziness . Orthostatic hypotension: - stable Overactive bladder: - Managed with oxybutynine 10 mg. - Still working well Environmental allergies: - Taking montelukast 10 mg daily for man agement. - Requires refill for the medication. Medical History: - Diet-controlled diabetes - Gait instability - Lipid disorder - Paroxysmal atrial fibrillation - Metastatic carcinoid tumor - Vitamin D deficiency - Chronic vertigo - Orthostatic hypotension - Chronic diarrhea syndrome - Overactive bladder - Environmental allergies Medications: - Guaifenesin as needed for respiratory infections - Meclizine 25 mg for dizziness - Melatonin 5 mg as a sleep aid - Montelukast 10 mg for allergies - Oxybutynin 10 mg for overactive bladde r - Simvastatin 20 mg for lipid disorder - Aliquis 0. mg for paroxysmal atrial fi brillation - Meltec 400 mg for metastatic carcinoid tumor - Iron supplement for chronic anemia - Omeprazole 140 mg for gastroesophageal reflux disease Social History: - Allergies to outdoor environments repo rted. Diagnostic Results: - Labs (March this year): - Compromised k idney function with GFR fluctuating between 57 to 47 - Creatinine level at 0.88 - Stable electrolytes - Random blood glucose at 147 - Stable liver enzyme levels - hemoglobin A1c 6.5 today Problem List - Diet-controlled diabetes - Gait instability - Lipid disorder - Paroxysmal atrial fibrillation - Metastatic carcinoid tumor - Vitamin D deficiency - Chronic vertigo - Orthostatic hypotension - Chronic diarrhea syndrome - Overactive bladder - Environmental allergies Patient Instructions - Continue current medications as prescr ibed. - Follow up in 4 months - letter provided to keep therapy cat Review of Systems - General: No fever no chills - Neurological: No headaches no dizziness - Ear nose throat: No sore throat no hearing difficulty no ear pain - Cardiovascular: No syncope, no chest pain, no palpitations - Gastrointestinal: No nausea vomiting or diarrhea Physical Exam General: No acute distress HEENT: No acute findings Neck: Supple Respiratory system: Able to talk in full sentences, no audible wheeze Cardiovascular: S1-S2 regular in rate and rhythm Extremities: No new findings LUBRICATING SPECIALIST: Alert awake oriented x3 Skin: Normal turgor PFSH Medical History Dysphagia History of COVID-19 COVID-19 vaccine administered Constipation Afib Overactive bladder Environmental allergies Neuroendocrine neoplasm of gastrointestinal tract Lipid disorder Colon polyp Gastric polyp Anemia Vitamin D deficiency Hyperlipemia Diabetes Arthritis IBS (irritable bowel syndrome) GERD (gastroesophageal reflux disease) Asthma Surgical History History of incisional hernia repair (05/15/24) Hx of resection of small bowel H/O exploratory laparotomy (09/20/22) History of colonoscopy History of esophagogastroduodenoscopy Family History Father Afib Pneumonia Brother Afib Heart disease Brother Heart disease Mother Unknown family medical history Social History Household Members: None Housing: Apartment Housing Other:: mental health association [facility] Are you a primary care advocate to a significant other at home: No Do you presently have 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 or 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 ([employer]) Alcohol intake: never Comment: TAB alarm Patient Tobacco Use Status: Never used Tobacco e-Cigarette/Vaping Use: Never Used Second Hand Smoke Exposure: No Advance Directives Date on File: 12/01/21 service: No Current occupational status: disabled Cognitive needs: No Hearing needs: No Vision needs: Yes Questionnaire PHQ-9 Over the last 2 weeks, how often have you been bothered by any of the following problems? 1. Little interest or pleasure in doing things: not at all 2. Feeling down, depressed, or hopeless: not at all 3. Trouble falling or staying asleep, or sleeping too much: more than half the days 4. Feeling tired or having little energy: more than half the days 5. Poor appetite or overeating: not at all 6. Feeling bad about yourself - or that you are a failure or have let yourself or your family down: not at all 7. Trouble concentrating on things, such as reading the newspaper or watching television: not at all 8. Moving or speaking so slowly that other people could have noticed. Or the opposite - being so fidgety or restless that you have been moving around a lot more than usual: not at all 9. Thoughts that you would be better off or of hurting yourself in some way: not at all Total score: 4 Depression Screening Interpretation: Negative Depression Screening Done: Yes 09832 - PHQ-9 Billing: Yes Source: Developed by Drs. Teodoro Young, Glenna Jimenez, Ayo Ramesh and colleagues, with an educational manuel from [employer]. Thrive Questionnaire Date Thrive assessed: 06/18/25 I am a: Patient What is your living situation today?: I have a steady place to live Within the past 12 months, did the food you bought not last and you didn't have the money to get more?: Never true Within the past 12 months, did you worry whether your food would run out before you got money to buy more?: Never true Do you have trouble paying for medicines?: No Do you have trouble getting transportation to medical appointments?: No Do you have trouble paying your heating and electricity bill?: No Do you have trouble taking care of your child, family member or friend?: No Do you have trouble with day-to-day activities such as bathing, preparing meals, shopping, managing finances, etc.?: No Are you currently unemployed and looking for a job?: No Are you interested in more education?: No Please select the resources that you would like help with: None Currently or been in a relationship where the following occur: No concerns reported THRIVE Score: 0 AUDIT C Alcohol Use Questionnaire (AUDIT-C) 1. How often do you have a drink containing alcohol?: Never 3. How often do you have six or more drinks on one occasion?: Never Total Score: 0 Score Reviewed/Action Taken: Yes LYLE-7 AMB Questionnaire LYLE-7 Date LYLE - 7 assessed: 06/18/25 Feeling nervous, anxious, or on edge: 0 = Not at all Not being able to stop or control worryin = Not at all Worrying too much about different things: 0 = Not at all Trouble relaxin = Several days Being so restless that it is hard to sit still: 0 = Not at all Becoming easily annoyed or irritable: 0 = Not at all Feeling afraid as if something awful might happen: 0 = Not at all Total LYLE-7 score (0-4 normal; 5-9 mild; 10-14 moderate; 15-21 severe): 1 Source: Developed by Drs. Teodoro Young, Glenna Jimenez, Ayo Ramesh and colleagues, with an educational manuel from [employer]. LYLE-7 Assessment Billing LYLE-7 Assessment Tool: LYLE-7 Assessment 47367 Physical exam (Primary Care) Vital Signs: Last Vital Signs Pulse 76 06/18/25 11:22 BP 112/72 06/18/25 11:22 Pulse Ox 97 06/18/25 11:22 Oxygen Delivery Method Room Air 06/18/25 11:22 BMI result Body Mass Index 26.5 Tobacco/Smoking Status: Tobacco use Status Tobacco use date assessed 06/18/25 06/18/25 11:23 Patient Tobacco Use Status Never used Tobacco 06/18/25 11:23 e-Cigarette/Vaping Use Never Used 06/18/25 11:23 PHQ-9: PHQ-9 Score PHQ-9: Total score 4 06/18/25 11:23 Depression Screening Interpretation: Negative Thrive Assessment: Date of Thrive Assessment Date Thrive assessed 06/18/25 06/18/25 11:23 Currently or been in a relationship where the following occur: No concerns reported Coding Level of Care Code Est Pt Level 4 (81232) Complex EM visit Add On G2211 Diagnoses Diet-controlled type 2 diabetes mellitus E11.9 Environmental allergies Z91.09 Paroxysmal atrial fibrillation I48.0 Orthostatic hypotension I95.1 Lipid disorder E78.9 Overactive bladder N32.81 Neuroendocrine neoplasm of gastrointestinal tract D3A.8 Gait instability R26.81 Use of cane as ambulatory aid Z99.89 Uses walker Z99.89 Additional Codes LYLE-7 Assessment Billing - LYLE-7 Assessment Tool: LYLE-7 Assessment 22156 ([id number]) PHQ-9 - 33783 - PHQ-9 Billing: Yes ([id number]) Assessment & Plan Assessment & Plan (1) Diet-controlled type 2 diabetes mellitus: Code(s): E11.9 - Type 2 diabetes mellitus without complications Category: Medical (2) Environmental allergies: Code(s): Z91.09 - Other allergy status, other than to drugs and biological substances Category: Medical (3) Paroxysmal atrial fibrillation: Code(s): I48.0 - Paroxysmal atrial fibrillation Category: Medical (4) Orthostatic hypotension: Code(s): I95.1 - Orthostatic hypotension Category: Medical (5) Lipid disorder: Code(s): E78.9 - Disorder of lipoprotein metabolism, unspecified Category: Medical (6) Overactive bladder: Code(s): N32.81 - Overactive bladder Category: Medical (7) Neuroendocrine neoplasm of gastrointestinal tract: Comment: w/resection 2019-some tumor remains and is receiving injections monthly to shrink tumor Code(s): D3A.8 - Other benign 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 tumors Category: Medical (8) Gait instability: Code(s): R26.81 - Unsteadiness on feet Category: Medical (9) Use of cane as ambulatory aid: Code(s): Z99.89 - Dependence on other enabling machines and devices Category: Medical (10) Uses walker: Code(s): Z99.89 - Dependence on other enabling machines and devices Category: Medical Plan Chief Complaint Patient presents for follow-up of chronic conditions and therapy cat letter renewal. History of Present Illness The patient is a 64-year-old female presenting for follow-up on chronic conditions and therapy cat prescription renewal. Diet-controlled diabetes: - hemoglobin A1c is 6.5 today. - Patient manages diabetes with diet control and regular monitoring of glucose levels. Gait instability: - No specific timeline provided. - Patient experiences chronic vertigo that may contribute to gait instability. Uses cane for stability Lipid disorder: - Managed by document control coordinator, currently on simvastatin 20 mg. Tolerating medication. Paroxysmal atrial fibrillation: - Managed by cardiology. - Patient currently on blood thinner (aliquis 0. mg). Metastatic carcinoid tumor: - Managed by oncology and gastroenterology. Stable at this time Vitamin D deficiency: - continue supplement Chronic vertigo: - On meclizine 25 mg to manage dizziness. Orthostatic hypotension: - stable Overactive bladder: - Managed with oxybutynine 10 mg. - Still working well Environmental allergies: - Taking montelukast 10 mg daily for management. - Requires refill for the medication. Medical History: - Diet-controlled diabetes - Gait instability - Lipid disorder - Paroxysmal atrial fibrillation - Metastatic carcinoid tumor - Vitamin D deficiency - Chronic vertigo - Orthostatic hypotension - Chronic diarrhea syndrome - Overactive bladder - Environmental allergies Medications: - Guaifenesin as needed for respiratory infections - Meclizine 25 mg for dizziness - Melatonin 5 mg as a sleep aid - Montelukast 10 mg for allergies - Oxybutynin 10 mg for overactive bladder - Simvastatin 20 mg for lipid disorder - Aliquis 0. mg for paroxysmal atrial fibrillation - Meltec 400 mg for metastatic carcinoid tumor - Iron supplement for chronic anemia - Omeprazole 140 mg for gastroesophageal reflux disease Social History: - Allergies to outdoor environments reported. Diagnostic Results: - Labs (March this year): - Compromised kidney function with GFR fluctuating between 57 to 47 - Creatinine level at 0.88 - Stable electrolytes - Random blood glucose at 147 - Stable liver enzyme levels - hemoglobin A1c 6.5 today Problem List - Diet-controlled diabetes - Gait instability - Lipid disorder - Paroxysmal atrial fibrillation - Metastatic carcinoid tumor - Vitamin D deficiency - Chronic vertigo - Orthostatic hypotension - Chronic diarrhea syndrome - Overactive bladder - Environmental allergies Patient Instructions - Continue current medications as prescribed. - Follow up in 4 months - letter provided to keep therapy cat Orders: Orders AMB Hemoglobin A1c Today Z13.9 - Encounter for screening, unspecified
--- OUTSIDE RECORDS SUMMARY | 2025-06-18 12:42 | XMS_ITS | Clinical Summary ---
Author Organization [facility] Address [address] [place] [id number] Phone Care Team Providers Care Motor Checker Name Role Phone Patti Crabtree MD Primary Care Provider [phone] Allergies Active Allergy Reactions Criticality Noted Date [...] file Insurance MEDICARE PART A & B [facility] MEDICARE PART A & B [place] [facility]IC[facility] PART A & [place] B [facility] Care Teams Motor Checker Relationship Specialty Start Date End Date Patti Crabtree MD [address] [facility] [place] [address] PCP - General Internal Medicine 01/26/23 Additional Source Comments The information contained in this document represents components of the legal health record. It is not the complete legal health record.[facility]
--- OUTSIDE RECORDS SUMMARY | 2025-06-18 12:42 | XMS_ITS | Clinical Summary ---
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 Paroxysmal A-fib ([facility] V24, [facility] V28) 12/29 Overview (12/25/2024): suppressed on Multaq Encounters Date Type Department Care Team Description 05/21/2025 2:30 PM EDT Consult Orthopedic Surgery - [place] [address] [facility] [address] [place] [phone] Venancio Vásquez, DPM Dermatophytosis of nail (Primary Dx); Type 2 diabetes mellitus without complications ([facility] V24, [facility] V28); Hammer toe of left foot; Acquired hammer toe of right foot from Last 3 Months Medical History Medical History Date Comments Hypertension 01/18/2012 DX:Hypertension Historical Medical DX 01/18/2012 DX:Hyperli pidemia LDL goal < 70 DM type 2 (diabetes mellitus , type 2) ([facility] V24, [facility] V28) 01/18/2012 DX:DM type 2 (diabetes naya itus, type 2) ([facility]) Paroxysmal A-fib ([facility] V2 4, [facility] V28) 01/18/2012 DX:Paroxysmal A-fib ([facility]) Esophageal reflux 01/18/2012 DX:Esophageal reflux H/O: [...] PM EDT Office Visit Orthopedic Surgery - [place] [address] [phone] Venancio Vásquez, DPM [address] [address] Health Maintenance Due Date Last Done Comments [...] Insurance MEDICARE [place]ICAID - [place] Care Teams Sign Fabricator Relationship Specialty Start Date End Date Patti Crabtree MD [address] [place] [address] PCP - General Internal Medicine 12/19/24
== END 2025-06-18 11:45 | disposition home or self-care (01) ==
LOC: HO.HMCC 11:20
PROVIDERS: PCP Internal Medicine; Visit Provider Internal Medicine
DX: E11.9 Type 2 diabetes mellitus without complications (principal); I48.0 Paroxysmal atrial fibrillation; D3A.8 Other benign 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 tumors; Z91.09 Other allergy status, other than to drugs and biological substances; I95.1 Orthostatic hypotension; E78.9 Disorder of lipoprotein metabolism, unspecified; N32.81 Overactive bladder; R26.81 Unsteadiness on feet; Z99.89 Dependence on other enabling machines and devices

== ENCOUNTER → 2025-06-18 11:19 | Outpatient (BNVA) | payer MEDICARE, MEDICAID, SELFPAY | PROVIDERS: PCP Internal Medicine; Visit Provider Internal Medicine | DX: E11.9 Type 2 diabetes mellitus without complications (principal); I48.0 Paroxysmal atrial fibrillation; I95.1 Orthostatic hypotension; E78.9 Disorder of lipoprotein metabolism, unspecified; N32.81 Overactive bladder; D3A.8 Other benign 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 tumors; R26.81 Unsteadiness on feet; Z91.09 Other allergy status, other than to drugs and biological substances; Z99.89 Dependence on other enabling machines and devices | CPT/HCPCS: 83036; 96127; 99212 ==

== ENCOUNTER 2025-06-24 19:37 | Observation (INO) | payer MEDICARE, MEDICAID, SELFPAY ==
--- NOTE | ~2025-06-24 | CT_ITS ---
CLINICAL HISTORY: abd pain, hx SBO CT abdomen and pelvis with contrast Comparison: CT/SR - CT ABDOMEN PELVIS W IV CON - 01/04/25 17:[address]/SR - CT ABDOMEN PELVIS W IV CON - 11/20/24 16:08 EST Findings: There is minimal bibasilar atelectasis. There is nonspecific mild gallbladder wall edema. There is no biliary duct dilation. The liver, pancreas, spleen, adrenal glands, and kidneys are unremarkable. The appendix is not visualized. There are no findings of appendicitis. There is a moderate amount of stool in the colon. There is no bowel obstruction. There is a small bowel anastomosis in the right lower quadrant. There is no free fluid or free air. The aorta is normal in diameter. There is unchanged rim of soft tissue density surrounding the mid to distal superior mesenteric artery. The superior mesenteric artery is patent without significant stenosis. There are no enlarged lymph nodes. Uterus and adnexa are grossly unremarkable. The bladder is unremarkable. There is no fracture or suspicious lytic or sclerotic lesion. IMPRESSION: 1. Nonspecific mild gallbladder wall edema. Consider right upper quadrant ultrasound or hepatobiliary scintigraphy if cholecystitis is a clinical concern. 2. Chronic findings as above. This document has been electronically signed by: Wm Alves MD on 06/25/2025 04:30:43
--- NOTE | ~2025-06-24 | NM_ITS ---
CLINICAL HISTORY: r o acute acute cholecystitis NM HIDA SCAN WITH CHOLECYSTOKININ CHALLENGE Comparison: US/SR - US ABDOMEN LIMITED - 06/25/25 07:[address]/REG/SR - CT ABDOMEN PELVIS W IV CON - 06/25/25 03:43 EDT Technique: r o acute acute cholecystitis (Hx) / Dynamic 60-120 MIN (DICOM Hx) (DICOM Hx) Findings: 5.0 mCi technetium 99m Choletec was administered intravenously. 1.1 mcg synthetic cholecystokinin was given slowly intravenously in the appropriate interval. Normal liver uptake, distribution, and excretion. Gallbladder appears 18 minutes. Central bile ducts appear at 10 minutes. Duodenum visualized at 14 minutes. Probable enterogastric reflux of radiotracer. Gallbladder ejection fraction 31%. Less than 35% can indicate chronic cholecystitis or biliary dyskinesia. IMPRESSION: 1. No acute cholecystitis. 2. Decreased gallbladder ejection fraction. This document has been electronically signed by: Sherita Looney DO on 06/25/2025 18:39:56
--- NOTE | ~2025-06-24 | US_ITS ---
EXAMINATION: US ABDOMEN LIMITED CLINICAL INFORMATION: Abdominal pain. CT exam dated June 25, 2025 reported nonspecific gallbladder edema.. COMPARISON: Correlated to CT dated June 25, 2025. TECHNIQUE: Real-time ultrasound of the right upper quadrant abdomen/gallbladder is seen grayscale and color Doppler technique. FINDINGS: There is intraluminal isoechoic abnormality without flow on color Doppler interrogation. The gallbladder is nondistended. There is a 5 mm gallbladder wall. No pericholecystic fluid collection. The common bile duct measures 5 mm. US/US abdomen limited IMPRESSION: Gallbladder wall thickening. Differential diagnostic considerations include acalculous cholecystitis versus hepatitis versus prolonged fasting among other etiologies. Probable biliary sludge. No gross cholelithiasis or choledocholithiasis. Electronically signed by: Jose Manuel Mcintosh MD 06/25/2025 08:04 AM EDT
[2025-06-24 19:40] VITALS: BP 120/80; PULSE 66; O2SAT 99
[2025-06-24 19:58] VITALS: BP 104/63; PULSE 84; RESP 16; TEMP 36.7; O2SAT 98; BMI 26.5
--- NOTE | 2025-06-24 20:07 | ED.GENADULT ---
HPI - General Adult General Chief complaint: Abdominal Pain Stated complaint: ABD PAIN Time Seen by Provider: 06/25/25 02:14 Source: patient Mode of arrival: EMS Limitations: no limitations History of Present Illness ED Provider: Dr. 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 Admits that she was able to have lunch yesterday but developed symptoms afterwards. Was unable to eat dinner secondary to pain and nausea. No vomiting though. Denies bowel changes. No reported fever. Related Data Home Medications ?Medication ?Instructions ?Recorded ?Confirmed lactulose 10 gram/15 mL oral 15 ml PO BEDTIME PRN Constipation 05/15/24 06/18/25 solution cholecalciferol (vitamin D3) 25 25 mcg PO DAILY 03/27/25 06/18/25 mcg (1,000 unit) tablet docusate sodium 100 mg capsule 100 mg PO BID PRN constipation 03/27/25 06/18/25 (Colace) guaifenesin 600 mg tablet, 600 mg PO Q12H PRN congestion 03/27/25 06/18/25 extended release 12 hr (Mucinex) octreotide,microspheres 30 mg 30 mg IM Q4W 03/27/25 06/18/25 intramuscular susp, extended release Previous Rx's ?Medication ?Instructions ?Recorded melatonin 5 mg capsule 5 mg PO .qhs PRN To sleep 30 days 11/06/23 #90 caps apixaban 5 mg tablet (Eliquis) 5 mg PO BID #180 tabs 01/30/24 meclizine 25 mg tablet 25 mg PO BID PRN motion sickness 02/13/24 90 days #180 tabs albuterol sulfate 90 mcg/actuation 2 puff inhalation Q4-6H PRN 05/08/24 aerosol inhaler Shortness Of Breath Or Wheezing #8.5 grams montelukast 10 mg tablet 10 mg PO BEDTIME #90 tabs 12/10/24 dronedarone 400 mg tablet (Multaq) 400 mg PO BID 90 days #180 tabs 02/10/25 simvastatin 20 mg tablet 20 mg PO BEDTIME #90 tabs 02/26/25 omeprazole 40 mg capsule,delayed 40 mg PO DAILY #90 caps 03/27/25 release ferrous sulfate 325 mg (65 mg 325 mg PO BID #60 tabs 04/10/25 iron) tablet loratadine 10 mg tablet 10 mg PO BEDTIME #90 tabs 04/22/25 oxybutynin chloride 10 mg 10 mg PO BEDTIME #90 tabs 06/23/25 tablet,extended release 24 hr Allergies Allergy/AdvReac Type Severity Reaction Status Date / Time Chocolate Allergy Mild Rash Verified 06/24/25 20:01 environmental allergies Allergy Mild Itchy Eyes Verified 06/24/25 20:01 erythromycin base AdvReac Intermediate GI UPSET Verified 06/24/25 20:01 (Erythromycin Base) ibuprofen (From Motrin) AdvReac Intermediate Gastrointestinal Verified 06/24/25 20:01 Upset, increases pain Review of Systems Review of Systems: as per HPI, full review of systems performed and negative but for the above mentioned pertinent positives and negatives. [facility] Past Medical History Medical History Dysphagia History of COVID-19 COVID-19 vaccine administered Constipation Afib Overactive bladder Environmental allergies Neuroendocrine neoplasm of gastrointestinal tract Lipid disorder Colon polyp Gastric polyp Anemia Vitamin D deficiency Hyperlipemia Diabetes Arthritis IBS (irritable bowel syndrome) GERD (gastroesophageal reflux disease) Asthma Surgical History History of incisional hernia repair (05/15/24) Hx of resection of small bowel H/O exploratory laparotomy (09/20/22) History of colonoscopy History of esophagogastroduodenoscopy Family History Family History Father Afib Pneumonia Brother Afib Heart disease Brother Heart disease Mother Unknown family medical history Social History Social History Household Members: None Housing: Apartment Housing Other:: mental health association [facility] Are you a primary emergency care attendant to a significant other at home: No 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 SKIN: Normal skin color for ethnicity, warm, dry, no rashes noted. HEENT: Normocephalic, atraumatic, no stridor, dry mucous membranes, dentition intact, EOMI, PERRLA. NECK: Soft, supple, full ROM, midline structures nontender, no step-offs, no deformities, no lymphadenopathy. CHEST: Heart regular tachycardia, no murmurs, symmetric chest rise and fall. PULMONARY: Clear to auscultation bilaterally, diminished at the bases, no labored breathing, no wheezes/rhales/rhonchi. ABDOMINAL: Softly distended, diffusely tender to palpation with voluntary guarding, no palpable mass, positive bowel sounds in all quadrants. : Deferred. MUSCULOSKELETAL: Normal tone, full range of motion, no deformities, no peripheral edema. NEURO: Alert and oriented x3, CN II through XII intact, equal strength and sensation bilateral upper and lower extremities, no focal neurologic deficits. PSYCHIATRIC: Flat affect, fluid speech, good eye contact and appropriate demeanor. Vital Signs: Vital Signs - 24 hr 06/25/25 00:00 06/25/25 00:11 06/25/25 02:00 Temperature 98 F 97.8 F 97.8 F Pulse Rate 72 100 72 Respiratory Rate 20 21 H 18 Blood Pressure 110/70 120/53 L 120/60 Pulse Oximetry 98 100 99 Oxygen Delivery Method Room Air Room Air Room Air 06/25/25 03:39 06/25/25 05:22 06/25/25 05:40 Temperature 97.8 F 97.9 F Pulse Rate 82 86 109 H Respiratory Rate 12 14 22 H Blood Pressure 138/66 115/70 115/70 Pulse Oximetry 96 98 99 Oxygen Delivery Method Room Air Room Air Room Air 06/25/25 07:25 06/25/25 10:40 06/25/25 10:51 Temperature 97.6 F 97.8 F Pulse Rate 124 H 132 H 124 H Respiratory Rate 19 17 17 Blood Pressure 126/66 114/63 Pulse Oximetry 96 97 96 Oxygen Delivery Method Room Air Room Air Room Air 06/25/25 11:00 06/25/25 12:18 06/25/25 14:55 Temperature 98.0 F 98.5 F Pulse Rate 112 H 113 H 106 H Respiratory Rate 13 12 14 Blood Pressure 114/63 105/57 L 102/63 Pulse Oximetry 95 99 Oxygen Delivery Method Room Air Room Air Room Air BMI result Body Mass Index 26.5 Course Course Course Narrative: RME: 64 yold female presents to the ED for lower abdominal pain with diarrhea and nausea and referred back pain. Patient denies any hematuria, flank pain, fever, or chills. Patient denies any upper abdominal pain. Labs ordered Reevaluation(s) Reevaluation #1: I, Dr. Mcnally have take over the care of this patient, I reviewed pertinent blood work and imaging, re-evaluated the patient when appropriate. US/US abdomen limited IMPRESSION: Gallbladder wall thickening. Differential diagnostic considerations include acalculous cholecystitis versus hepatitis versus prolonged fasting among other etiologies. Probable biliary sludge. No gross cholelithiasis or choledocholithiasis. will consult surgery Time: 08:11 Reevaluation #2: Surgery recommends HIDA scan, patient had a similar presentation in December, gallbladder appears to be much the same, we will continue to monitor, but the time of my evaluation patient is looking better overall, still continues to have some abdominal tenderness Time: 08:45 Time: 15:00 Additional Reevaluation(s): pt admitted to surgery Medications Administered Generic Name Dose Route Start Last Admin Trade Name Freq PRN Reason Stop Dose Admin Lactated Ringer's 1,000 mls @ 100 mls/hr 06/25/25 11:15 06/25/25 11:44 Lr IVCONT 100 mls/hr .Q10H HERBERT Administration Piperacillin Sod/Tazobactam 50 mls @ 100 mls/hr 06/25/25 13:00 06/25/25 18:44 Sod 3.375 gm/ Sodium Chloride IV 100 mls/hr Q6H HERBERT Administration Sodium Chloride 3 ml 06/25/25 16:00 06/25/25 16:33 0.9 % Sodium Chloride Flush 3 Ml Syringe IVFLUSH Not Given QSHIFT HERBERT Discontinued Medications Generic Name Dose Route Start Last Admin Trade Name Freq PRN Reason Stop Dose Admin Ceftriaxone Sodium 2 gm 06/25/25 08:11 06/25/25 09:06 Ceftriaxone Sodium 2 Gm Vial IVPUSH 06/25/25 08:12 2 gm ONCE ONE Administration Lactated Ringer's 1,000 mls @ 999 mls/hr 06/25/25 02:31 06/25/25 05:22 Lr IV 06/25/25 03:31 Infused .Q1H1M ONE Infusion Sodium Chloride 1,728.18 mls @ 1,728.18 mls/hr 06/25/25 09:27 06/25/25 10:40 Ns 30 ml/kg infuse over 1 hr (1728.18 ml) 06/25/25 10:26 Infused IV Infusion .Q1H STA Iohexol 85 ml 06/25/25 03:41 06/25/25 03:42 Iohexol 350 Mg/Ml 100 Ml Infus..Btl IV 06/25/25 03:42 85 ml ONCE ONE Administration Morphine Sulfate 4 mg 06/25/25 02:31 06/25/25 03:04 Morphine Sulfate 4 Mg/Ml Cartridge IVPUSH 06/25/25 02:32 4 mg ONCE ONE Administration Protocol Ondansetron HCl 4 mg 06/25/25 02:31 06/25/25 03:04 Ondansetron Hcl 4 Mg/2 Ml Vial IVPUSH 06/25/25 02:32 4 mg ONCE ONE Administration Medical Decision Making Medical Decision Making MDM Narrative: This patient presents today with a chief complaint of abdominal pain. Differential diagnosis for this patient is broad. It includes appendicitis, cholecystitis, bowel obstruction, peptic ulcer disease, pyelonephritis, vascular pathology, among many others. A broad-based workup based on history and physical examination was obtained. Blood work is reassuring, patient's abdominal discomfort though is concerning. She is diffusely tender on exam without rebound or guarding. Plan for CT of the abdomen and pelvis to evaluate further. 6:47 AM 06/25/2025 (Dr. Gisele Reyes, D.O.) CT shows evidence of potential cholecystitis. We will add on an ultrasound of the gallbladder to evaluate further. Anticipate general surgery consult. She has no elevation in her LFTs, T bili or white blood cell count. No fever. Signing out to oncoming provider pending ultrasound results and surgical consultation. Differential Diagnosis Differential Diagnoses: The differential diagnosis associated with the presentation includes (As above) Admission/Observation Consideration of admission/observation: Escalation of care including admission/observation considered Lab Data 06/24/25 21:07 06/24/25 21:07 Labs: Lab Results 06/24/25 06/25/25 06/25/25 Range/Units 21:07 02:49 08:39 WBC 7.8 (4.8-10.8) X10*3/uL RBC 3.73 L (4.20-5.50) X10*6/uL Hgb 11.5 L (12.0-16.0) g/dl Hct 34.9 L (37.0-47.0) % MCV 93.6 (80.0-98.0) fL MCH 30.8 (27.0-33.0) pg MCHC 33.0 (31.0-35.0) g/dl RDW 13.2 (11.0-16.0) % Plt Count 227 (160-400) X10*3/uL MPV 10.0 (9.4-12.3) fL Immature Gran % (Auto) 0.3 (0.0-0.4) % Neut % (Auto) 73.5 H (45-73) % Lymph % (Auto) 18.9 L (20-40) % Harrison % (Auto) 6.7 (2-11) % Eos % (Auto) 0.3 (0-4) % Baso % (Auto) 0.3 (0-2) % Lymph # (Auto) 1.5 (1.2-4.9) X10*3/uL Harrison # (Auto) 0.5 (0.1-1.2) X10*3/uL Eos # (Auto) 0.0 (0.0-0.4) X10*3/uL Baso # (Auto) 0.0 (0.0-0.2) X10*3/uL Abs Immat Gran (auto) 0.02 (0.00-0.03) X10*3/uL Absolute Neuts (auto) 5.7 (2.0-8.3) x10*3/uL Absolute Nucleated RBC 0.000 (0.0-0.012) X10*3/uL Nucleated RBC % (auto) 0.0 (0.0-0.2) /100WBC Sodium 143 (135-145) mmol/L Potassium 5.1 (3.3-5.1) mmol/L Chloride 107 (96-108) mmol/L Carbon Dioxide 27 (22-29) mmol/L Anion Gap 14 (12-20) BUN 23 H (9-16) mg/dL Creatinine 1.22 (0.5-1.4) mg/dL Estim Creat Clear Calc 34.5 Estimated GFR 44 Random Glucose 111 (60-115) mg/dL Lactic Acid 2.5 H* (0.5-2.0) mmol/L Lactic Acid F/U @ 2Hr (0.5-2.0) mmol/L Lactic Acid F/U @ 4Hr (0.5-2.0) mmol/L Calcium 8.9 (8.4-10.2) mg/dL Total Bilirubin 0.5 (0.0-1.0) mg/dL AST 20 (5-31) U/L ALT 9 (0-31) U/L Alkaline Phosphatase 70 (39-117) U/L Total Protein 7.0 (6.5-8.0) g/dL Albumin 4.3 (3.5-5.0) g/dL Lipase 8 (8-78) U/L Urine Color Yellow Urine Appearance Clear Urine pH 6.0 (5.0-9.0) Ur Specific Sanders 1.010 (1.005-1.025) Urine Protein Negative (Neg-Trace) mg/dL Urine Glucose (UA) Negative (Negative) mg/dL Urine Ketones 15 (Negative) mg/dL Urine Blood Negative (Negative) Urine Nitrite Negative (Negative) Ur Leukocyte Esterase Negative (Negative) 06/25/25 06/25/25 Range/Units 11:24 13:40 WBC (4.8-10.8) X10*3/uL RBC (4.20-5.50) X10*6/uL Hgb (12.0-16.0) g/dl Hct (37.0-47.0) % MCV (80.0-98.0) fL MCH (27.0-33.0) pg MCHC (31.0-35.0) g/dl RDW (11.0-16.0) % Plt Count (160-400) X10*3/uL MPV (9.4-12.3) fL Immature Gran % (Auto) (0.0-0.4) % Neut % (Auto) (45-73) % Lymph % (Auto) (20-40) % Harrison % (Auto) (2-11) % Eos % (Auto) (0-4) % Baso % (Auto) (0-2) % Lymph # (Auto) (1.2-4.9) X10*3/uL Harrison # (Auto) (0.1-1.2) X10*3/uL Eos # (Auto) (0.0-0.4) X10*3/uL Baso # (Auto) (0.0-0.2) X10*3/uL Abs Immat Gran (auto) (0.00-0.03) X10*3/uL Absolute Neuts (auto) (2.0-8.3) x10*3/uL Absolute Nucleated RBC (0.0-0.012) X10*3/uL Nucleated RBC % (auto) (0.0-0.2) /100WBC Sodium (135-145) mmol/L Potassium (3.3-5.1) mmol/L Chloride (96-108) mmol/L Carbon Dioxide (22-29) mmol/L Anion Gap (12-20) BUN (9-16) mg/dL Creatinine (0.5-1.4) mg/dL Estim Creat Clear Calc Estimated GFR Random Glucose (60-115) mg/dL Lactic Acid (0.5-2.0) mmol/L Lactic Acid F/U @ 2Hr 3.5 H* (0.5-2.0) mmol/L Lactic Acid F/U @ 4Hr 1.1 (0.5-2.0) mmol/L Calcium (8.4-10.2) mg/dL Total Bilirubin (0.0-1.0) mg/dL AST (5-31) U/L ALT (0-31) U/L Alkaline Phosphatase (39-117) U/L Total Protein (6.5-8.0) g/dL Albumin (3.5-5.0) g/dL Lipase (8-78) U/L Urine Color Urine Appearance Urine pH (5.0-9.0) Ur Specific Sanders (1.005-1.025) Urine Protein (Neg-Trace) mg/dL Urine Glucose (UA) (Negative) mg/dL Urine Ketones (Negative) mg/dL Urine Blood (Negative) Urine Nitrite (Negative) Ur Leukocyte Esterase (Negative) Discharge Plan Discharge Clinical Impression: Acute abdominal pain Patient Disposition: Admitted As Inpatient
[2025-06-24 21:13] LABS: MANUAL DIFF FLAG NO
[2025-06-24 21:16] LABS: Hematocrit 34.9 % (37.0-47.0); Hemoglobin 11.5 g/dl (12.0-16.0); Imm Gran Abs Auto 0.02 X10*3/uL (0.00-0.03); Imm Gran Pct Auto 0.3 % (0.0-0.4); Lymphocytes Absolute Auto 1.5 X10*3/uL (1.2-4.9); Mean Corpuscular HGB Conc 33.0 g/dl (31.0-35.0); Mean Corpuscular Hemoglobin 30.8 pg (27.0-33.0); Mean Corpuscular Volume 93.6 fL (80.0-98.0); NRBC Abs Auto 0.000 X10*3/uL (0.0-0.012); NRBC Pct Auto 0.0 /100WBC (0.0-0.2); Platelet Count 227 X10*3/uL (160-400); Red Blood Count 3.73 X10*6/uL (4.20-5.50); White Blood Count 7.8 X10*3/uL (4.8-10.8)
[2025-06-24 21:38] LABS: Alanine Aminotransferase 9 U/L (0-31); Albumin Level 4.3 g/dL (3.5-5.0); Alkaline Phosphatase 70 U/L (39-117); Anion Gap 14 (12-20); Aspartate Amino Transferase 20 U/L (5-31); Blood Urea Nitrogen 23 mg/dL (9-16); Calcium 8.9 mg/dL (8.4-10.2); Carbon Dioxide 27 mmol/L (22-29); Chloride 107 mmol/L (96-108); Creatinine Clr Calc Pharmacy 34.5; Estimated Glomerular Filt Rate 44; Lipase 8 U/L (8-78); Potassium 5.1 mmol/L (3.3-5.1); Sodium 143 mmol/L (135-145); Total Protein 7.0 g/dL (6.5-8.0)
[2025-06-25] VITALS (16 sets, daily range): BP systolic 95–147; BP diastolic 53–82; PULSE 71–132; RESP 12–22; TEMP 36.4–36.9; O2SAT 94–100; BMI 27.5
--- NOTE | 2025-06-25 | ECG_ITS ---
Test Reason : TACHYCARDIA Blood Pressure : */* mmHG Vent. Rate : 129 BPM Atrial Rate : * BPM P-R Int : * ms QRS Dur : 60 ms QT Int : 328 ms P-R-T Axes : * -9 12 degrees QTcB Int : 480 ms Atrial fibrillation with rapid ventricular response with premature ventricular or aberrantly conducted complexes Nonspecific ST and T wave abnormality Abnormal ECG When compared with ECG of 23-May-2024 11:23, Atrial fibrillation has replaced Sinus rhythm Vent. rate has increased by 50 bpm Referred By: Lizbet Yee Electronically Signed By: BREONNA CAMPBELL
--- OUTSIDE RECORDS SUMMARY | 2025-06-25 00:28 | XMS_ITS | Clinical Summary ---
Author Organization [facility] Address [address] [place] [address] Phone Care Team Providers Care Returned Case Inspector Name Role Phone Patti Crabtree MD Primary Care Provider [phone] Allergies Active Allergy Reactions Criticality Noted Date [...] type 2 (diabetes mellitus , type 2) ([facility] V24, [facility] V28) 01/18/2012 Down syndrome 01/18/2012 Dysfunctional uterine bleeding 01/18/2012 Anemia 01/18/2012 Esophageal reflux 01/18/2012 Mild intellectual disability 01/18/2012 Paroxysmal A-fib ([facility] V24, [facility] V28) 12/29 Overview (12/25/2024): suppressed on Multaq Encounters Date Type Department Care Team Description 05/21/2025 2:30 PM EDT Consult Orthopedic Surgery - [place] [address] [facility] [address] [place] [phone] Venancio Vásquez, DPM Dermatophytosis of nail (Primary Dx); Type 2 diabetes mellitus without complications ([facility] V24, [facility] V28); Hammer toe of left foot; Acquired hammer toe of right foot from Last 3 Months Medical History Medical History Date Comments Hypertension 01/18/2012 DX:Hypertension Historical Medical DX 01/18/2012 DX:Hyperli pidemia LDL goal < 70 DM type 2 (diabetes mellitus , type 2) ([facility] V24, [facility] V28) 01/18/2012 DX:DM type 2 (diabetes naya itus, type 2) ([facility]) Paroxysmal A-fib ([facility] V2 4, [facility] V28) 01/18/2012 DX:Paroxysmal A-fib ([facility]) Esophageal reflux 01/18/2012 DX:Esophageal reflux H/O: GI [...] PM EDT Office Visit Orthopedic Surgery - [address] [phone] Venancio Vásquez, DPM [address] [place] [phone] Health Maintenance Due Date Last Done Comments [...] Insurance MEDICARE [place]ICA[place] - [place] Care Teams Returned Case Inspector Relationship Specialty Start Date End Date Patti Crabtree MD [address] [place] [id number] PCP - General Internal Medicine 12/19/24
--- OUTSIDE RECORDS SUMMARY | 2025-06-25 00:28 | XMS_ITS | Clinical Summary ---
Author Organization [facility] Address [address] [facility] [address] [place] [phone] Phone Care Team Providers Care Hearing Aid Assembly Supervisor Name Role Phone Patti Crabtree MD Primary Care Provider [phone] Allergies Active Allergy Reactions Criticality Noted Date [...] file Insurance MEDICARE PART A & B [facility] MEDICARE PART A & [place] [facility] [place] B [facility] Care Teams Hearing Aid Assembly Supervisor Relationship Specialty Start Date End Date Patti Crabtree MD [address] [place] [id number] PCP - General Internal Medicine 01/26/23 Additional Source Comments The information contained in this document represents components of the legal health record. It is not the complete legal health record.[facility]
[2025-06-25 02:57] LABS: Appearance Urine Clear; Glucose Urine UA Negative (Negative); PH 6.0 (5.0-9.0); Specific Gravity - Urine 1.010 (1.005-1.025)
[2025-06-25] MEDS: Lactated Ringers 1,000 ML 999 ML IV (03:02)
[2025-06-25] MEDS: iohexoL 350 MG/ML 100 ML INFUS..BTL 85 ML IV (03:42)
--- NOTE | 2025-06-25 08:51 | PM.CNGS ---
History of Present Illness Consult details Consult date: 06/25/25 <Lizbet Yee PA-C - Last Filed: 06/25/25 09:13> Reason for consult: other (possible acute cholecystitis) <ARMAND Basilio Last Filed: 06/25/25 09:13> Narrative: 64 year old female with PMH significant for Hogan syndrome, diet controlled diabetes mellitus, PAF, metastatic carcinoid tumor who presents for evaluation of abdominal pain. She reports she had been doing well until yesterday afternoon. She ate lunch without problem but developed RLQ abd pain around 4pm. This then migrated to her midabdomen and lower back. She was unable to eat dinner due to feeling poorly. The pain was associated with nausea without vomiting. Due to the persistence of pain, she was brought to the ED. Work up included CBC, BMP, LFTs which were really unremarkable. CT scan was performed which showed mild gallbladder wall thickening. ABD US was therefore obtained which again showed wall thickening without gallstones or pericholecystitic fluid, possible sludge. General surgery therefore asked to see for concern for possible acute cholecystitis. Her scan and US today appear similar to prior scan and ABD US performed on 01/21 on my review. Patient is well known to the surgical service with hx of resection carcinoid tumor involving small bowel mesentery with small bowel resection, ex laparotomy and enterolysis for SBO and hx of incisional hernia repair with mesh. She feels better after receiving pain meds this morning. She had a normal bowel movement on Monday and has been going daily. She is passing flatus. She denies fever, chills, diarrhea, constipation, change in skin or urine or stool color. <ARMAND Basilio Last Filed: 06/25/25 09:13> Review of Systems Constitutional: Constitutional: Denies chills, Denies fever(s) and Denies weight loss <ARMAND Basilio Last Filed: 06/25/25 09:13> ENT: Denies dizziness <ARMAND Basilio Last Filed: 06/25/25 09:13> Cardiovascular: Cardiovascular: Denies chest pain and Denies dyspnea <ARMAND Basilio Last Filed: 06/25/25 09:13> Respiratory: Respiratory: Denies dyspnea <Lizbet Yee PA-C Last Filed: 06/25/25 09:13> Gastrointestinal: Gastrointestinal: Reports as per HPI <Lizbet Yee PA-C Last Filed: 06/25/25 09:13> Genitourinary: Genitourinary: Denies hematuria and Denies dysuria <Lizbet Yee PA-C Last Filed: 06/25/25 09:13> Musculoskeletal: Musculoskeletal: Denies numbness <Lizbet Yee PA-C Last Filed: 06/25/25 09:13> Integumentary/Breasts: Skin/Breast: Denies jaundice <Lizbet Yee PA-C Last Filed: 06/25/25 09:13> Neurologic: Denies dizziness and Denies numbness <Lizbet Yee PA-C Last Filed: 06/25/25 09:13> [facility] Past Medical History Medical History: Medical History Dysphagia History of COVID-19 COVID-19 vaccine administered Constipation Afib Overactive bladder Environmental allergies Neuroendocrine neoplasm of gastrointestinal tract Lipid disorder Colon polyp Gastric polyp Anemia Vitamin D deficiency Hyperlipemia Diabetes Arthritis IBS (irritable bowel syndrome) GERD (gastroesophageal reflux disease) Asthma <ARMAND Basilio Last Filed: 06/25/25 09:13> Family History Family History: Family History Father Afib Pneumonia Brother Afib Heart disease Brother Heart disease Mother Unknown family medical history <ARMAND Basilio Last Filed: 06/25/25 09:13> Surgical History Surgical History: Surgical History History of incisional hernia repair (05/15/24) Hx of resection of small bowel H/O exploratory laparotomy (09/20/22) History of colonoscopy History of esophagogastroduodenoscopy <ARMAND Basilio Last Filed: 06/25/25 09:13> Social History Social History: Social History Household Members: None Housing: Apartment Housing Other:: mental health association [facility] Are you a primary rn long term care to a significant other at home: No 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) Alcohol intake: never Comment: TAB alarm Patient Tobacco Use Status: Never used Tobacco Smoked in Last 30 Days: No e-Cigarette/Vaping Use: Never Used Second Hand Smoke Exposure: No Use of substances other than those prescribed or required for medical reasons: No Advance Directives: Yes Advance Directives on File: Yes Advance Directives Date on File: 12/01/21 service: No Current occupational status: disabled Cognitive needs: No Hearing needs: No Vision needs: Yes <Lizbet Yee PA-C - Last Filed: 06/25/25 09:13> Meds Allergies/Adverse reactions: Allergies Allergy/AdvReac Type Severity Reaction Status Date / Time Chocolate Allergy Mild Rash Verified 06/24/25 20:01 environmental allergies Allergy Mild Itchy Eyes Verified 06/24/25 20:01 erythromycin base AdvReac Intermediate GI UPSET Verified 06/24/25 20:01 (Erythromycin Base) ibuprofen (From Motrin) AdvReac Intermediate Gastrointestinal Verified 06/24/25 20:01 Upset, increases pain <Lizbet Yee PA-C - Last Filed: 06/25/25 09:13> Home medications: Home Medications ?Medication ?Instructions ?Recorded ?Confirmed ?Last Taken ?Type lactulose 10 gram/15 mL oral 15 ml PO BEDTIME PRN Constipation 05/15/24 06/18/25 Unknown History solution cholecalciferol (vitamin D3) 25 25 mcg PO DAILY 03/27/25 06/18/25 Unknown History mcg (1,000 unit) tablet docusate sodium 100 mg capsule 100 mg PO BID PRN constipation 03/27/25 06/18/25 Unknown History (Colace) guaifenesin 600 mg tablet, 600 mg PO Q12H PRN congestion 03/27/25 06/18/25 Unknown History extended release 12 hr (Mucinex) octreotide,microspheres 30 mg 30 mg IM Q4W 03/27/25 06/18/25 Unknown History intramuscular susp, extended release <Lizbet Yee, PA-C Gibran Last Filed: 06/25/25 09:13> Physical Exam Vital Signs: Vital Signs: Last Vital Signs Temp 97.6 F 06/25/25 07:25 Pulse 124 H 06/25/25 07:25 Resp 19 06/25/25 07:25 BP 115/70 06/25/25 05:40 Pulse Ox 96 06/25/25 07:25 O2 Del Method Room Air 06/25/25 07:25 BMI result Body Mass Index 26.5 <Lizbet Yee PA-C Gibran Last Filed: 06/25/25 09:13> Const: General: cooperative, comfortable, no acute distress and alert; No ill appearing <Lizbet Yee PA-C Gibran Last Filed: 06/25/25 09:13> Resp: Effort & Inspection: normal respiratory effort, able to speak in complete sentences and no use of accessory muscles <Lizbet Yee PA-C Gibran Last Filed: 06/25/25 09:13> Cardio: Rate: tachycardic <ELAINE BasilioRitu Leary Last Filed: 06/25/25 09:13> GI: Inspection: No distended and Yes scar (well healed midline laparotomy scar) <Lizbet Yee PA-C Gibran Last Filed: 06/25/25 09:13> Palpation (GI): Soft to palpation, Tenderness to palpation present (GI) (mild diffuse tenderness) Sutton's sign negative, no guarding and not rigid <Lizbet Yee PA-C Gibran Last Filed: 06/25/25 09:13> Skin: General skin exam: no rashes or lesions noted and no jaundice <Lizbet Yee PA-C Gibran Last Filed: 06/25/25 09:13> Results Labs Result diagrams: 06/24/25 21:07 06/24/25 21:07 <Lizbet Yee PA-C Gibran Last Filed: 06/25/25 09:13> Labs: Abnormal lab results 06/24/25 Range/Units 21:07 RBC 3.73 L (4.20-5.50) X10*6/uL Hgb 11.5 L (12.0-16.0) g/dl Hct 34.9 L (37.0-47.0) % Neut % (Auto) 73.5 H (45-73) % Lymph % (Auto) 18.9 L (20-40) % BUN 23 H (9-16) mg/dL Short CBC 06/24/25 Range/Units 21:07 WBC 7.8 (4.8-10.8) X10*3/uL Hgb 11.5 L (12.0-16.0) g/dl Hct 34.9 L (37.0-47.0) % Plt Count 227 (160-400) X10*3/uL BMP 06/24/25 21:07 Sodium 143 Potassium 5.1 Chloride 107 Carbon Dioxide 27 BUN 23 H Creatinine 1.22 Calcium 8.9 Liver Function 06/24/25 Range/Units 21:07 Total Bilirubin 0.5 (0.0-1.0) mg/dL AST 20 (5-31) U/L ALT 9 (0-31) U/L Alkaline Phosphatase 70 (39-117) U/L Albumin 4.3 (3.5-5.0) g/dL Urine 06/25/25 Range/Units 02:49 Urine Color Yellow Urine Appearance Clear Urine pH 6.0 (5.0-9.0) Ur Specific [place] 1.010 (1.005-1.025) Urine Protein Negative (Neg-Trace) mg/dL Urine Glucose (UA) Negative (Negative) mg/dL All other labs normal. <Lizbet Yee PA-C - Last Filed: 06/25/25 09:13> Imaging Abdomen CT scan report/results: report reviewed and image reviewed <ARMAND Basilio Last Filed: 06/25/25 09:13> Abdominal ultrasound report/results: report reviewed and image reviewed <ARMAND Basilio Last Filed: 06/25/25 09:13> Additional studies: labs reviewed <ARMAND Basilio Last Filed: 06/25/25 09:13> Assessment and Plan (1) Acute abdominal pain: Status: Acute <ARMAND Basilio Last Filed: 06/25/25 09:13> 64 year old female with PMH significant for Hogan syndrome, diet controlled diabetes mellitus, PAF, metastatic carcinoid tumor, well known to surgical service for multiple abd surgeries who presents for evaluation of abdominal pain. Her pain started in the lower abd and migrated periumbilically, she is mildly tender to palpation diffusely. Her imaging does show a thickened gallbladder wall however this was present on previous imaging earlier this year and furthermore she does not have gallstones. All labs are WNL and she has no leukocytosis or elevated LFTs. Will therefore obtain HIDA with CCK to evaluate for possible acute cholecystitis or biilary dyskinesia as she did present with similar symptoms in December 2024. Further plan dependent on imaging. Patient comfortable with plan. Discussed with ED provider. <Lizbet Yee PA-C - Last Filed: 06/25/25 09:13> 64 year old female with PMH significant for Hogan syndrome, diet controlled diabetes mellitus, PAF, metastatic carcinoid tumor, well known to surgical service for multiple abd surgeries who presents for evaluation of abdominal pain. Her pain started in the lower abd and migrated periumbilically, she is mildly tender to palpation diffusely. Her imaging does show a thickened gallbladder wall however this was present on previous imaging earlier this year and furthermore she does not have gallstones. All labs are WNL and she has no leukocytosis or elevated LFTs. Will therefore obtain HIDA with CCK to evaluate for possible acute cholecystitis or biilary dyskinesia as she did present with similar symptoms in December 2024. Further plan dependent on imaging. Patient comfortable with plan. Discussed with ED provider. Patient seen and examined and agree with the above assessment and plan. We will await HIDA nuclear scan results to decide regarding further surgery. <Parish Sanchez MD - Last Filed: 06/25/25 14:36> Procedures Date of Service Date of Service: 06/25/25 <Lizbet Yee PA-C - Last Filed: 06/25/25 09:13> 06/25/25 <Parish Sanchez MD - Last Filed: 06/25/25 14:36>
[2025-06-25] MEDS: SODIUM CHLORIDE 1728.18 ML IV (09:40)
--- NOTE | 2025-06-25 10:29 | HO.ANESPROP2 ---
HPI - Anesthesia Eval Consult details Narrative: 64 yr old female for cholecystectomy laparoscopic, possible open, pending HIDA No recent illness No CP/SOB with doing ADLs around her house, periodic stair climbing She states she was due to see her oncologist & guest history clerk today at [facility] [place] [place] for EKG s/p hernia repair 04/2024 with GA, ETT 7.5 Afib: on eliquis (last dose was a.m. dose 06/24/25); rates are elevated in 120s, she has not received her Multaq since a.m. 06/24/25 [facility] Active Problems Active Problems: All Active Problems Acute abdominal pain (Acute) Uses walker (Acute) Dysphagia (Acute) Encounter for diabetic foot exam (Acute) Difficulty hearing (Acute) Atypical pneumonia (Acute) Postop check (Acute) Rash (Acute) History of incisional hernia repair (Acute 05/15/24) Preop cardiovascular exam (Acute) Incisional hernia (Acute) Gait instability (Acute) Diet-controlled type 2 diabetes mellitus (Acute) Use of cane as ambulatory aid (Acute) Vertigo (Acute) Encounter for general adult medical examination with abnormal findings (Acute) Lipid disorder (Acute) Low blood pressure (Acute) Paroxysmal atrial fibrillation (Acute) Metastatic carcinoid tumor (Chronic) Hyperkalemia (Acute) Vitamin D deficiency (Acute) Chronic vertigo (Acute) Hospital discharge follow-up (Acute) Orthostatic hypotension (Acute) Dizziness (Acute) Chest discomfort (Acute) Stomach upset (Acute) GERD (gastroesophageal reflux disease) (Acute) Hospital discharge follow-up (Acute) Non-cardiac chest pain (Acute) Upper respiratory tract infection (Acute) Small bowel obstruction (Acute) Hogan syndrome (Acute) Carcinoid tumor (Acute) S/P exploratory laparotomy (Acute) IBS (irritable bowel syndrome) (Acute) Constipation (Acute) Overactive bladder (Acute) Environmental allergies (Acute) Neuroendocrine neoplasm of gastrointestinal tract (Chronic) Past Medical History Medical History Dysphagia History of COVID-19 COVID-19 vaccine administered Constipation Afib Overactive bladder Environmental allergies Neuroendocrine neoplasm of gastrointestinal tract Lipid disorder Colon polyp Gastric polyp Anemia Vitamin D deficiency Hyperlipemia Diabetes Arthritis IBS (irritable bowel syndrome) GERD (gastroesophageal reflux disease) Asthma Family History Family History Father Afib Pneumonia Brother Afib Heart disease Brother Heart disease Mother Unknown family medical history Family history of problems with anesthesia: No Surgical History Surgical History History of incisional hernia repair (05/15/24) Hx of resection of small bowel H/O exploratory laparotomy (09/20/22) History of colonoscopy History of esophagogastroduodenoscopy History of Problems with Anesthesia: No Social History Social History Household Members: None Housing: Apartment Housing Other:: mental health association 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) Alcohol intake: never Comment: TAB alarm Patient Tobacco Use Status: Never used Tobacco Smoked in Last 30 Days: No e-Cigarette/Vaping Use: Never Used Second Hand Smoke Exposure: No Use of substances other than those prescribed or required for medical reasons: No Advance Directives: Yes Advance Directives on File: Yes Advance Directives Date on File: 12/01/21 service: No Current occupational status: disabled Cognitive needs: No Hearing needs: No Vision needs: Yes Meds Allergies Allergy/AdvReac Type Severity Reaction Status Date / Time Chocolate Allergy Mild Rash Verified 06/24/25 20:01 environmental allergies Allergy Mild Itchy Eyes Verified 06/24/25 20:01 erythromycin base AdvReac Intermediate GI UPSET Verified 06/24/25 20:01 (Erythromycin Base) ibuprofen (From Motrin) AdvReac Intermediate Gastrointestinal Verified 06/24/25 20:01 Upset, increases pain Home Medications ?Medication ?Instructions ?Recorded ?Confirmed ?Last Taken ?Type lactulose 10 gram/15 mL oral 15 ml PO BEDTIME PRN Constipation 05/15/24 06/18/25 Unknown History solution cholecalciferol (vitamin D3) 25 25 mcg PO DAILY 03/27/25 06/18/25 Unknown History mcg (1,000 unit) tablet docusate sodium 100 mg capsule 100 mg PO BID PRN constipation 03/27/25 06/18/25 Unknown History (Colace) guaifenesin 600 mg tablet, 600 mg PO Q12H PRN congestion 03/27/25 06/18/25 Unknown History extended release 12 hr (Mucinex) octreotide,microspheres 30 mg 30 mg IM Q4W 03/27/25 06/18/25 Unknown History intramuscular susp, extended release Exam Height,Weight and Vital Signs: Height 4 ft 10 in Weight 57.606 kg Last Vital Signs Temp 97.6 F 06/25/25 07:25 Pulse 124 H 06/25/25 07:25 Resp 19 06/25/25 07:25 BP 115/70 06/25/25 05:40 Pulse Ox 96 06/25/25 07:25 O2 Del Method Room Air 06/25/25 07:25 Pertinent Lab Results Pertinent Lab Results: Laboratory Tests 06/24/25 06/25/25 06/25/25 21:07 02:49 08:39 WBC 7.8 RBC 3.73 L Hgb 11.5 L Hct 34.9 L MCV 93.6 MCH 30.8 MCHC 33.0 RDW 13.2 Plt Count 227 MPV 10.0 Immature Gran % (Auto) 0.3 Neut % (Auto) 73.5 H Lymph % (Auto) 18.9 L Graham % (Auto) 6.7 Eos % (Auto) 0.3 Baso % (Auto) 0.3 Lymph # (Auto) 1.5 Graham # (Auto) 0.5 Eos # (Auto) 0.0 Baso # (Auto) 0.0 Abs Immat Gran (auto) 0.02 Absolute Neuts (auto) 5.7 Absolute Nucleated RBC 0.000 Nucleated RBC % (auto) 0.0 Sodium 143 Potassium 5.1 Chloride 107 Carbon Dioxide 27 Anion Gap 14 BUN 23 H Creatinine 1.22 Estim Creat Clear Calc 34.5 Estimated GFR 44 Random Glucose 111 Lactic Acid 2.5 H* Calcium 8.9 Total Bilirubin 0.5 AST 20 ALT 9 Alkaline Phosphatase 70 Total Protein 7.0 Albumin 4.3 Lipase 8 Urine Color Yellow Urine Appearance Clear Urine pH 6.0 Ur Specific [place] 1.010 Urine Protein Negative Urine Glucose (UA) Negative Urine Ketones 15 Urine Blood Negative Urine Nitrite Negative Ur Leukocyte Esterase Negative Narrative Narrative: Echo 04/2024 Conclusions: - The left ventricular systolic function is normal. The calculated ejection fraction is 68% by biplane method. - No obvious valvular pathology seen on this study. Airway Mallampati Class: III TM Dist: >3cm Neck ROM: Full Loose/Missing/Broken Teeth: No Heart: tachycardic Lungs: CTAB Assessment and Plan Final Anesthetic Review Family History of Problems with Anesthesia: No History of Problems with Anesthesia: No
--- NOTE | 2025-06-25 10:46 | PC.NURSE ---
report given to ELIZABETH Arevalo in short stay at this time.
[2025-06-25 11:03] LABS: Reflex Lactate? Lactic Acid Added
[2025-06-25] MEDS: Lactated Ringers 1,000 ML 100 ML IVCONT ×2 (11:44→22:27)
[2025-06-25 11:56] LABS: ~Lactic Acid-LAB USE ONLY 3.5 mmol/L (0.5-2.0)
--- NOTE | 2025-06-25 12:06 | PC.NURSE ---
pt continues to wait for HIDAA scan to be completed at this time. LR now infusing @ 100mls/hr. plan of care ongoing. call meza placed within reach.
[2025-06-25 13:28] LABS: Reflex Lactate? 2 Y
[2025-06-25 14:03] LABS: ~Lactic Acid-LAB USE ONLY 1.1 mmol/L (0.5-2.0)
--- NOTE | 2025-06-25 21:42 | HO.PM.IMCN ---
History of Present Illness Data of Consult Service Date: 06/25/25 Requesting physician: Parish Sanchez Primary Care Provider: MD LYNN Esquivel Reason for consult: medical management 64-year-old female with a past medical history of Hogan syndrome, diet controlled diabetes, paroxysmal AFib, metastatic carcinoid tumor status post surgery, history of small-bowel resection, history of SBO; presented to the hospital today with a chief complaint of right lower quadrant abdominal pain since 16:00 associated nausea. Denies any fevers and chills. Denies any chest pain or palpitations. Denies any urinary symptoms. Review of all other systems is limited. ER course: Patient noted to right sided abdominal pain. Ultrasound showed gallbladder wall thickening concerning for acute cholecystitis. Admitted to general surgery service. General surgery team as per medicine consult for medical management of her health conditions. Patient was started on antibiotics. HIDA scan was ordered which showed no evidence of acute cholecystitis. [facility], [facility] Medical History Dysphagia History of COVID-19 COVID-19 vaccine administered Constipation Afib Overactive bladder Environmental allergies Neuroendocrine neoplasm of gastrointestinal tract Lipid disorder Colon polyp Gastric polyp Anemia Vitamin D deficiency Hyperlipemia Diabetes Arthritis IBS (irritable bowel syndrome) GERD (gastroesophageal reflux disease) Asthma Family History Father Afib Pneumonia Brother Afib Heart disease Brother Heart disease Mother Unknown family medical history Surgical History History of incisional hernia repair (05/15/24) Hx of resection of small bowel H/O exploratory laparotomy (09/20/22) History of colonoscopy History of esophagogastroduodenoscopy Social History Household Members: None Housing: Apartment Housing Other:: mental health association [facility] Are you a primary senior care assistant to a significant other at home: No Do you presently have 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 or 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 (LEGAL DIRECTOR) Alcohol intake: never Comment: TAB alarm Patient Tobacco Use Status: Never used Tobacco Smoked in Last 30 Days: No e-Cigarette/Vaping Use: Never Used Second Hand Smoke Exposure: No Use of substances other than those prescribed or required for medical reasons: No Advance Directives: Yes Advance Directives on File: Yes Advance Directives Date on File: 12/01/21 Nutrition Risks: No Nutritional Risk service: No Current occupational status: disabled Cognitive needs: No Hearing needs: No Vision needs: Yes Meds Allergies Allergy/AdvReac Type Severity Reaction Status Date / Time Chocolate Allergy Mild Rash Verified 06/24/25 20:01 environmental allergies Allergy Mild Itchy Eyes Verified 06/24/25 20:01 erythromycin base AdvReac Intermediate GI UPSET Verified 06/24/25 20:01 (Erythromycin Base) ibuprofen (From Motrin) AdvReac Intermediate Gastrointestinal Verified 06/24/25 20:01 Upset, increases pain Active Medications: Current Medications Acetaminophen (Acetaminophen 325 Mg Tablet) 650 mg PO Q6H PRN PRN Reason: Pain, Mild 1-3,fever,headache Albuterol Sulfate (Albuterol Sulfate 90 Mcg 8 Gm Inhaler) 2 puff INHALE RQ4H PRN PRN Reason: Shortness of Breath/Wheezing Calcium Carbonate (Calcium Carbonate 750 Mg Tab.Chew) 750 mg PO Q4H PRN PRN Reason: Heartburn Lactated Ringer's (Lr) 1,000 mls @ 100 mls/hr IVCONT .Q10H [facility] Last Admin: 06/25/25 11:44 Dose: 100 mls/hr Piperacillin Sod/Tazobactam (Sod 3.375 gm/ Sodium Chloride) 50 mls @ 100 mls/hr IV Q6H [facility] Last Admin: 06/25/25 18:44 Dose: 100 mls/hr Magnesium Hydroxide (Milk Of Magnesia 30 Ml Oral.Susp) 30 ml PO DAILY PRN PRN Reason: Constipation Melatonin (Melatonin 3 Mg Tablet) 6 mg PO BEDTIME PRN PRN Reason: Insomnia Morphine Sulfate (Morphine Sulfate 4 Mg/Ml Cartridge) 3 mg IVPUSH Q4H PRN; Protocol PRN Reason: Pain, Severe (Pain Scale 7-10) Omeprazole (Omeprazole 40 Mg Capsule.Dr) 40 mg PO DAILY@0630 [facility] Ondansetron HCl (Ondansetron Hcl 4 Mg/2 Ml Vial) 4 mg IVPUSH Q8H PRN PRN Reason: Nausea and Vomiting Oxycodone HCl (Oxycodone Hcl Immed Release 5 Mg Tablet) 5 mg PO Q4H PRN PRN Reason: Pain, Moderate(Pain Scale 4-6) Senna (Sennosides 8.6 Mg Tablet) 17.2 mg PO BEDTIME [facility] Sodium Chloride (0.9 % Sodium Chloride Flush 3 Ml Syringe) 3 ml IVFLUSH QSHIFT [facility] Last Admin: 06/25/25 16:33 Dose: Not Given Home Medications ?Medication ?Instructions ?Recorded ?Confirmed ?Last Taken ?Type lactulose 10 gram/15 mL oral 15 ml PO BEDTIME PRN Constipation 05/15/24 06/25/25 Unknown History solution cholecalciferol (vitamin D3) 25 25 mcg PO DAILY 03/27/25 06/25/25 06/24/25 History mcg (1,000 unit) tablet docusate sodium 100 mg capsule 100 mg PO BID PRN constipation 03/27/25 06/25/25 Unknown History (Colace) octreotide,microspheres 30 mg 30 mg IM Q4W 03/27/25 06/25/25 05/28/25 History intramuscular susp, extended release melatonin 5 mg capsule 5 mg PO BEDTIME PRN To sleep 06/25/25 06/25/25 Unknown History omeprazole 40 mg capsule,delayed 40 mg PO DAILY@0630 06/25/25 06/25/25 06/24/25 History release Physical Exam Vital Signs and Narrative: Vital Signs: Last Vital Signs Temp 97.6 F 06/25/25 19:21 Pulse 71 06/25/25 19:21 Resp 12 06/25/25 19:21 BP 95/54 L 06/25/25 19:21 Pulse Ox 98 06/25/25 19:21 O2 Del Method Room Air 06/25/25 19:21 BMI result Body Mass Index 26.5 Gen: Appears be in no acute distress HEENT: NCAT, Moist mucosa. Pulmonary: Vesicular breath sounds, fair air entry CVS: Normal S1-S2 Abdomen: BS+, Soft, Nontender Extremities: Warm well perfused Neuro: Alert and awake. Results Labs 06/24/25 21:07 06/24/25 21:07 Labs: Laboratory Results - last 24 hr 06/25/25 06/25/25 06/25/25 02:49 08:39 11:24 Lactic Acid 2.5 H* Lactic Acid F/U @ 2Hr 3.5 H* Lactic Acid F/U @ 4Hr Urine Color Yellow Urine Appearance Clear Urine pH 6.0 Ur Specific [place] 1.010 Urine Protein Negative Urine Glucose (UA) Negative Urine Ketones 15 Urine Blood Negative Urine Nitrite Negative Ur Leukocyte Esterase Negative 06/25/25 13:40 Lactic Acid Lactic Acid F/U @ 2Hr Lactic Acid F/U @ 4Hr 1.1 Urine Color Urine Appearance Urine pH Ur Specific [place] Urine Protein Urine Glucose (UA) Urine Ketones Urine Blood Urine Nitrite Ur Leukocyte Esterase Imaging Radiologist's Impressions: Impressions Abdomen Ultrasound 06/25/25 07:49 IMPRESSION: Gallbladder wall thickening. Differential diagnostic considerations include acalculous cholecystitis versus hepatitis versus prolonged fasting among other etiologies. Probable biliary sludge. No gross cholelithiasis or choledocholithiasis. Electronically signed by: Jose Manuel Mcintosh MD 06/25/2025 08:04 AM EDT Assessment and Plan (1) Acute abdominal pain: Status: Acute Plan 64-year-old female with a past medical history of Hogan syndrome, diet controlled diabetes, paroxysmal AFib, metastatic carcinoid tumor status post surgery, history of small-bowel resection, history of SBO; presented to the hospital today with a chief complaint of right lower quadrant abdominal pain since 16:00 associated nausea. Concern for possible acute cholecystitis. Abdominal pain: Patient ultrasound showed gallbladder wall thickening. Concern for acute cholecystitis. Also biliary dyskinesia in the differential. HIDA scan negative for acute cholecystitis. Patient admitted to general surgery service-management per primary team. Pain control Diabetes: Insulin sliding scale Paroxysmal AFib: Rate controlled. If no intervention planned by surgery, to resume the Eliquis in a.m. Continue home dronedarone
--- NOTE | 2025-06-25 22:17 | PHA.MEDREC ---
Addendum entered by Master Zamorano RPh 06/25/25 22:32: MED REC REVIEWED BY [facility] Original Note: Pharmacy Consult ? Medication Reconciliation Pharmacy has completed the medication reconciliation. Spoke with pt and she was able to confirm her medications with me. Pt states she is still taking Eliquis 5mg BID and has been filling them at [facility]; I called [facility] and the last time Eliquis was filled 01/14/2025 for 90 days.
[2025-06-26] VITALS (7 sets, daily range): BP systolic 100–125; BP diastolic 53–71; PULSE 84–123; RESP 16–18; TEMP 36–36.8; O2SAT 96–98
--- NOTE | 2025-06-26 | ECG_ITS ---
Test Reason : tachycardia Blood Pressure : */* mmHG Vent. Rate : 116 BPM Atrial Rate : * BPM P-R Int : * ms QRS Dur : 64 ms QT Int : 324 ms P-R-T Axes : * 9 51 degrees QTcB Int : 450 ms Atrial fibrillation with rapid ventricular response Abnormal ECG When compared with ECG of 25-Jun-2025 15:27, No significant changes seen Referred By: Lizbet Yee Electronically Signed By: BREONNA CAMPBELL
[2025-06-26] MEDS: 0.9 % Sodium Chloride Flush 3 ML SYRINGE IVFLUSH ×4 (01:03→21:16)
[2025-06-26 06:33] LABS: MANUAL DIFF FLAG NO
[2025-06-26 06:51] LABS: Anion Gap 18 (12-20); Blood Urea Nitrogen 16 mg/dL (9-16); Calcium 8.2 mg/dL (8.4-10.2); Carbon Dioxide 21 mmol/L (22-29); Chloride 106 mmol/L (96-108); Creatinine Clr Calc Pharmacy 43.7; Estimated Glomerular Filt Rate 57; Potassium 5.2 mmol/L (3.3-5.1); Sodium 140 mmol/L (135-145)
[2025-06-26 07:07] LABS: Hematocrit 33.7 % (37.0-47.0); Hemoglobin 10.7 g/dl (12.0-16.0); Imm Gran Abs Auto 0.04 X10*3/uL (0.00-0.03); Imm Gran Pct Auto 0.5 % (0.0-0.4); Lymphocytes Absolute Auto 1.4 X10*3/uL (1.2-4.9); Mean Corpuscular HGB Conc 31.8 g/dl (31.0-35.0); Mean Corpuscular Hemoglobin 30.9 pg (27.0-33.0); Mean Corpuscular Volume 97.4 fL (80.0-98.0); NRBC Abs Auto 0.000 X10*3/uL (0.0-0.012); NRBC Pct Auto 0.0 /100WBC (0.0-0.2); Platelet Count 226 X10*3/uL (160-400); Red Blood Count 3.46 X10*6/uL (4.20-5.50); White Blood Count 8.1 X10*3/uL (4.8-10.8)
--- NOTE | 2025-06-26 07:48 | PM.PNGS ---
Subjective Subjective Date of Service: 06/26/25 <Lizbet Yee PA-C - Last Filed: 06/26/25 07:58> 06/26/25 <Parish Sanchez MD - Last Filed: 06/26/25 08:33> Interval history: Feels better overall, denies abd pain. Denies nausea. Passing flatus. <Lizbet Yee PA-C - Last Filed: 06/26/25 07:58> Physical Exam Vital Signs: Vital Signs: Last Vital Signs Temp 97.5 F 06/26/25 07:40 Pulse 123 H 06/26/25 07:40 Resp 18 06/26/25 07:40 BP 107/71 06/26/25 07:40 Pulse Ox 97 06/26/25 07:40 O2 Del Method Room Air 06/26/25 07:40 BMI result Body Mass Index 27.5 <Lizbet Yee PA-C - Last Filed: 06/26/25 07:58> Const: General: comfortable, no acute distress and alert <Lizbet Yee PA-C - Last Filed: 06/26/25 07:58> Orientation/consciousness: patient oriented x3 <Lizbet Yee PA-C - Last Filed: 06/26/25 07:58> Resp: Effort & Inspection: normal respiratory effort <Lizbet Yee PA-C - Last Filed: 06/26/25 07:58> GI: Palpation (GI): Soft to palpation, nontender and no guarding <Lizbet Yee PA-C - Last Filed: 06/26/25 07:58> Skin: General skin exam: no rashes or lesions noted and no jaundice <Lizbet Yee PA-C - Last Filed: 06/26/25 07:58> Neuro: General: patient oriented x3 and moves all extremities <ARMAND Basilio Last Filed: 06/26/25 07:58> Objective Data Active Medications Acetaminophen (Acetaminophen 325 Mg Tablet) 650 mg PO Q6H PRN PRN Reason: Pain, Mild 1-3,fever,headache Albuterol Sulfate (Albuterol Sulfate 90 Mcg 8 Gm Inhaler) 2 puff INHALE RQ4H PRN PRN Reason: Shortness of Breath/Wheezing Calcium Carbonate (Calcium Carbonate 750 Mg Tab.Chew) 750 mg PO Q4H PRN PRN Reason: Heartburn Dronedarone (Dronedarone Hcl 400 Mg Tablet) 400 mg PO BID [facility] Lactated Ringer's (Lr) 1,000 mls @ 100 mls/hr IVCONT .Q10H [facility] Last Admin: 06/25/25 22:27 Dose: 100 mls/hr Documented By: DREA Piperacillin Sod/Tazobactam (Sod 3.375 gm/ Sodium Chloride) 50 mls @ 100 mls/hr IV Q6H [facility] Last Infusion: 06/26/25 06:45 Dose: Infused Documented By: DREA Magnesium Hydroxide (Milk Of Magnesia 30 Ml Oral.Susp) 30 ml PO DAILY PRN PRN Reason: Constipation Melatonin (Melatonin 3 Mg Tablet) 6 mg PO BEDTIME PRN PRN Reason: Insomnia Morphine Sulfate (Morphine Sulfate 4 Mg/Ml Cartridge) 3 mg IVPUSH Q4H PRN; Protocol PRN Reason: Pain, Severe (Pain Scale 7-10) Omeprazole (Omeprazole 40 Mg Capsule.Dr) 40 mg PO DAILY@0630 [facility] Last Admin: 06/26/25 06:14 Dose: 40 mg Documented By: DREA Ondansetron HCl (Ondansetron Hcl 4 Mg/2 Ml Vial) 4 mg IVPUSH Q8H PRN PRN Reason: Nausea and Vomiting Oxybutynin Chloride (Oxybutynin Chloride Er 5 Mg Tab.Er.24) 10 mg PO BEDTIME [facility] Oxycodone HCl (Oxycodone Hcl Immed Release 5 Mg Tablet) 5 mg PO Q4H PRN PRN Reason: Pain, Moderate(Pain Scale 4-6) Senna (Sennosides 8.6 Mg Tablet) 17.2 mg PO BEDTIME [facility] Last Admin: 06/25/25 22:12 Dose: Not Given Documented By: DREA Non-Admin Reason: declined per pt, bm yesterday Sodium Chloride (0.9 % Sodium Chloride Flush 3 Ml Syringe) 3 ml IVFLUSH QSHIFT [facility] Last Admin: 06/26/25 01:03 Dose: 3 ml Documented By: DREA <Lizbet Yee PA-C - Last Filed: 06/26/25 07:58> Labs CBC & Chem 7: 06/26/25 06:10 06/26/25 06:10 <Lizbet Yee PA-C - Last Filed: 06/26/25 07:58> Labs: Laboratory Results - last 24 hr 06/25/25 06/25/25 06/25/25 08:39 11:24 13:40 MCV MCH MCHC RDW Plt Count MPV Immature Gran % (Auto) Neut % (Auto) Lymph % (Auto) [place] % (Auto) Eos % (Auto) Baso % (Auto) Lymph # (Auto) [place] # (Auto) Eos # (Auto) Baso # (Auto) Abs Immat Gran (auto) Absolute Neuts (auto) Absolute Nucleated RBC Nucleated RBC % (auto) Anion Gap Estim Creat Clear Calc Estimated GFR Random Glucose Lactic Acid 2.5 H* Lactic Acid F/U @ 2Hr 3.5 H* Lactic Acid F/U @ 4Hr 1.1 Calcium 06/26/25 06:10 MCV 97.4 MCH 30.9 MCHC 31.8 RDW 13.5 Plt Count 226 MPV 10.8 Immature Gran % (Auto) 0.5 H Neut % (Auto) 73.2 H Lymph % (Auto) 17.7 L [place] % (Auto) 8.1 Eos % (Auto) 0.1 Baso % (Auto) 0.4 Lymph # (Auto) 1.4 [place] # (Auto) 0.7 Eos # (Auto) 0.0 Baso # (Auto) 0.0 Abs Immat Gran (auto) 0.04 H Absolute Neuts (auto) 5.9 Absolute Nucleated RBC 0.000 Nucleated RBC % (auto) 0.0 Anion Gap 18 Estim Creat Clear Calc 43.7 Estimated GFR 57 Random Glucose 63 Lactic Acid Lactic Acid F/U @ 2Hr Lactic Acid F/U @ 4Hr Calcium 8.2 L D <Lizbet Yee PA-C - Last Filed: 06/26/25 07:58> Procedures Date of Service Date of Service: 06/26/25 <Lizbet Yee PA-C - Last Filed: 06/26/25 07:58> 06/26/25 <Parish Sanchez MD - Last Filed: 06/26/25 08:33> Progress Note: A&P Assessment and plan (1) Biliary dyskinesia: Status: Acute <Lizbet Yee PA-C - Last Filed: 06/26/25 07:58> Assessment and Plan: HIDA yesterday showed filling of GB going against acute cholecystitis however gallbladder ejection fraction 31% suggesting biliary dyskinesia. Discussed this with patient and given her symptoms don't really fit acalculous biliary colic it was recommended to advance her diet and if tolerating, she can be discharged with follow up in the office. She is in agreement. <Lizbet Yee PA-C - Last Filed: 06/26/25 07:58> HIDA yesterday showed filling of GB going against acute cholecystitis however gallbladder ejection fraction 31% suggesting biliary dyskinesia. Discussed this with patient and given her symptoms don't really fit acalculous biliary colic it was recommended to advance her diet and if tolerating, she can be discharged with follow up in the office. She is in agreement. Patient comfortable this morning. Reviewed the HIDA scan results detail with the patient. Agree with the above assessment and plan. We will discharge home today if p.o. tolerated. She should follow up in the office in 1-2 weeks. <Parish Sanchez MD - Last Filed: 06/26/25 08:33> Time Spent With Patient Time: Total time managing care of this patient today ____ minutes. <Lizbet Yee PA-C - Last Filed: 06/26/25 07:58> Quality Stroke Does the patient have a stroke diagnosis?: No <Lizbet Yee PA-C - Last Filed: 06/26/25 07:58> VTE Prior VTE?: No <Lizbet Yee PA-C - Last Filed: 06/26/25 07:58> VTE Risk Level:: Surgical - high <Lizbet Yee PA-C - Last Filed: 06/26/25 07:58> VTE Device Contraindication: N/A - Device Ordered <Lizbet Yee PA-C - Last Filed: 06/26/25 07:58> VTE Drug Contraindication: Treatment Not Indicated <Lizbet Yee PA-C - Last Filed: 06/26/25 07:58>
[2025-06-26] MEDS: Lactated Ringers 1,000 ML 100 ML IVCONT (09:49)
--- NOTE | 2025-06-26 10:17 | MHC.CM.PN ---
PT REPORTS SHE LIVES ALONE IN A [facility] SUPPORTED APARTMENT SHE TYPICALLY HAS [employer] AND [employer] [employer], BUT THEY ARE WORKING ON GETTING A NEW AIDE PT USES NO DME AT HOME, BUT HAS A CANE, ROLLATOR AND W/C PRN FOR OUTSIDE THE HOME HCP ON FILE PCP: [facility] OBSERV[facility] NOTICE DELIVERED DCP: [facility] TO TRANSPORT
--- NOTE | 2025-06-26 13:55 | P.PNIM_ITS ---
Subjective Subjective Date of Service: 06/26/25 Interval History: seen and examined this morning follow up for medical consult Patient noted to be in atrial fibrillation, denies chest pain, shortness of breath, racing heart Review of Systems Review of Systems: Yes all other systems are reviewed and are negative Constitutional Constitutional: Denies chills and Denies fever(s) Cardiovascular Cardiovascular: Denies chest pain, Denies palpitations and Denies dyspnea Respiratory Respiratory: Denies cough and Denies dyspnea Gastrointestinal Gastrointestinal: Denies abdominal pain, Denies nausea and Denies vomiting Endocrine Endocrine: Denies palpitations Physical Exam 2 Vital Signs: Vital Signs: Last Vital Signs Temp 97.5 F 06/26/25 07:40 Pulse 112 H 06/26/25 13:06 Resp 18 06/26/25 07:40 BP 107/71 06/26/25 07:40 Pulse Ox 97 06/26/25 07:40 O2 Del Method Room Air 06/26/25 07:40 BMI result Body Mass Index 27.5 Const: General: cooperative, comfortable, no acute distress, alert and awake Nutritional Appearance: average body habitus Orientation/consciousness: p atient oriented x3 Resp: Effort & Inspection: normal respiratory effort, able to speak in complete sentences, no respiratory distress and no use of accessory muscles Cardio: Rate: tachycardic Rhythm: abnormal rhythm irregularly irregular Neuro: General: patient oriented x3 Objective Data Active Medications Acetaminophen (Acetaminophen 325 Mg Tablet) 650 mg PO Q6H PRN PRN Reason: Pain, Mild 1-3,fever,headache Albuterol Sulfate (Albuterol Sulfate 90 Mcg 8 Gm Inhaler) 2 puff INHALE RQ4H PRN PRN Reason: Shortness of Breath/Wheezing Apixaban (Apixaban 5 Mg Tablet) 5 mg PO BID [facility] Calcium Carbonate (Calcium Carbonate 750 Mg Tab.Chew) 750 mg PO Q4H PRN PRN Reason: Heartburn Dronedarone (Dronedarone Hcl 400 Mg Tablet) 400 mg PO BID [facility] Last Admin: 06/26/25 09:49 Dose: 400 mg Documented By: WES Magnesium Hydroxide (Milk Of Magnesia 30 Ml Oral.Susp) 30 ml PO DAILY PRN PRN Reason: Constipation Melatonin (Melatonin 3 Mg Tablet) 6 mg PO BEDTIME PRN PRN Reason: Insomnia Morphine Sulfate (Morphine Sulfate 4 Mg/Ml Cartridge) 3 mg IVPUSH Q4H PRN; Protocol PRN Reason: Pain, Severe (Pain Scale 7-10) Omeprazole (Omeprazole 40 Mg Capsule.Dr) 40 mg PO DAILY@0630 [facility] Last Admin: 06/26/25 06:14 Dose: 40 mg Documented By: DREA Ondansetron HCl (Ondansetron Hcl 4 Mg/2 Ml Vial) 4 mg IVPUSH Q8H PRN PRN Reason: Nausea and Vomiting Oxybutynin Chloride (Oxybutynin Chloride Er 5 Mg Tab.Er.24) 10 mg PO BEDTIME [facility] Oxycodone HCl (Oxycodone Hcl Immed Release 5 Mg Tablet) 5 mg PO Q4H PRN PRN Reason: Pain, Moderate(Pain Scale 4-6) Senna (Sennosides 8.6 Mg Tablet) 17.2 mg PO BEDTIME [facility] Last Admin: 06/25/25 22:12 Dose: Not Given Documented By: DREA Non-Admin Reason: declined per pt, bm yesterday Sodium Chloride (0.9 % Sodium Chloride Flush 3 Ml Syringe) 3 ml IVFLUSH QSHIFT [facility] Last Admin: 06/26/25 10:08 Dose: 3 ml Documented By: WES Labs 06/26/25 06:10 06/26/25 06:10 Labs: Laboratory Results - last 24 hr 06/25/25 06/26/25 13:40 06:10 MCV 97.4 MCH 30.9 MCHC 31.8 RDW 13.5 Plt Count 226 MPV 10.8 Immature Gran % (Auto) 0.5 H Neut % (Auto) 73.2 H Lymph % (Auto) 17.7 L [place] % (Auto) 8.1 Eos % (Auto) 0.1 Baso % (Auto) 0.4 Lymph # (Auto) 1.4 [place] # (Auto) 0.7 Eos # (Auto) 0.0 Baso # (Auto) 0.0 Abs Immat Gran (auto) 0.04 H Absolute Neuts (auto) 5.9 Absolute Nucleated RBC 0.000 Nucleated RBC % (auto) 0.0 Anion Gap 18 Estim Creat Clear Calc 43.7 Estimated GFR 57 Random Glucose 63 Lactic Acid F/U @ 4Hr 1.1 Calcium 8.2 L D Microbiology Microbiology Results: Microbiology 06/25/25 08:39 Blood Culture - Preliminary Blood - Venous No growth after 24 hours. 06/25/25 08:58 Blood Culture - Preliminary Blood - Venous No growth after 24 hours. Assessment and Plan (1) Hyperkalemia: Status: Acute (2) Paroxysmal atrial fibrillation: Status: Acute Plan This is a 64-year-old female with a past medical history of Hogan syndrome, diet controlled diabetes, paroxysmal AFib, metastatic carcinoid tumor status post surgery, history of small-bowel resection, history of SBO; presented to the hospital today with a chief complaint of right lower quadrant abdominal pain since 16:00 associated nausea. Concern for possible acute cholecystitis. Abdominal pain: ultrasound showed gallbladder wall thickening. HIDA scan negative for acute cholecystitis, likely biliary dyskinesia management as per general surgery Diabetes: diet controlled Insulin sliding scale Paroxysmal AFib with RVR likely due to holding multaq Multaq now resumed Anticoagulation with Eliquis resumed pt asymptomatic if remains in afib with HR uncontrolled consider cardiology evaluation Hyperkalemia renal function improving, not on sangeeta/arb Repeat BMP in am Thank you for allowing us to participate in the care of this patient, we will follow along with you Quality Stroke Does the patient have a stroke diagnosis?: No VTE Prior VTE?: No VTE Risk Level:: Surgical - high VTE Device Contraindication: N/A - Device Ordered VTE Drug Contraindication: Treatment Not Indicated
[2025-06-26] MEDS: oxyBUTYnin chloride ER 5 MG TAB.ER.24 10 MG PO (21:12)
--- NOTE | 2025-06-27 | ECG_ITS ---
Test Reason : afib Blood Pressure : */* mmHG Vent. Rate : 86 BPM Atrial Rate : * BPM P-R Int : * ms QRS Dur : 66 ms QT Int : 376 ms P-R-T Axes : * 11 8 degrees QTcB Int : 449 ms Atrial fibrillation with premature ventricular or aberrantly conducted complexes Abnormal ECG When compared with ECG of 26-Jun-2025 13:47, No significant change was found Referred By: Violetta Gonsales Electronically Signed By: BREONNA CAMPBLEL
[2025-06-27 03:26] VITALS: BP 116/62; PULSE 74; RESP 16; TEMP 36; O2SAT 96
[2025-06-27 07:12] LABS: Blood Urea Nitrogen 13 mg/dL (9-16); Calcium 8.4 mg/dL (8.4-10.2); Creatinine Clr Calc Pharmacy 41.1; Estimated Glomerular Filt Rate 53
[2025-06-27 07:19] LABS: Anion Gap 14 (12-20); Carbon Dioxide 27 mmol/L (22-29); Chloride 108 mmol/L (96-108); Potassium 5.1 mmol/L (3.3-5.1); Sodium 144 mmol/L (135-145)
[2025-06-27 07:34] VITALS: BP 117/61; PULSE 77; RESP 16; TEMP 36.6; O2SAT 96
[2025-06-27] MEDS: 0.9 % Sodium Chloride Flush 3 ML SYRINGE IVFLUSH (08:10)
--- NOTE | 2025-06-27 08:24 | P.PNGS_ITS ---
Subjective Subjective Date of Service: 06/27/25 Interval history: Feels well. Tolerating solid diet without any abdominal pain. Physical Exam 2 Vital Signs: Vital Signs: Last Vital Signs Temp 97.9 F 06/27/25 07:34 Pulse 77 06/27/25 07:34 Resp 16 06/27/25 07:34 BP 117/61 06/27/25 07:34 Pulse Ox 96 06/27/25 07:34 O2 Del Method Room Air 06/27/25 07:34 BMI result Body Mass Index 27.5 Const: General: comfortable, no acute distress and alert O rientation/consciousness: patient oriented x3 Resp: Effort & Inspection: normal respiratory effort Cardio: Rate: regular rate Rhythm: abnormal rhythm irregularly irregular GI: Other: abd soft, nontender Inspection: No distended Palpation (GI): no guarding Skin: General skin exam: no rashes or lesions noted Neuro: General: patient oriented x3 Objective Data Active Medications Acetaminophen (Acetaminophen 325 Mg Tablet) 650 mg PO Q6H PRN PRN Reason: Pain, Mild 1-3,fever,headache Albuterol Sulfate (Albuterol Sulfate 90 Mcg 8 Gm Inhaler) 2 puff INHALE RQ4H PRN PRN Reason: Shortness of Breath/Wheezing Apixaban (Apixaban 5 Mg Tablet) 5 mg PO BID [facility] Last Admin: 06/27/25 08:10 Dose: 5 mg Documented By: WES Calcium Carbonate (Calcium Carbonate 750 Mg Tab.Chew) 750 mg PO Q4H PRN PRN Reason: Heartburn Dronedarone (Dronedarone Hcl 400 Mg Tablet) 400 mg PO BID [facility] Last Admin: 06/27/25 08:10 Dose: 400 mg Documented By: WES Magnesium Hydroxide (Milk Of Magnesia 30 Ml Oral.Susp) 30 ml PO DAILY PRN PRN Reason: Constipation Melatonin (Melatonin 3 Mg Tablet) 6 mg PO BEDTIME PRN PRN Reason: Insomnia Last Admin: 06/26/25 21:13 Dose: 6 mg Documented By: GILBERTO Morphine Sulfate (Morphine Sulfate 4 Mg/Ml Cartridge) 3 mg IVPUSH Q4H PRN; Protocol PRN Reason: Pain, Severe (Pain Scale 7-10) Omeprazole (Omeprazole 40 Mg Capsule.Dr) 40 mg PO DAILY@0630 [facility] Last Admin: 06/27/25 04:55 Dose: 40 mg Documented By: BRI Ondansetron HCl (Ondansetron Hcl 4 Mg/2 Ml Vial) 4 mg IVPUSH Q8H PRN PRN Reason: Nausea and Vomiting Oxybutynin Chloride (Oxybutynin Chloride Er 5 Mg Tab.Er.24) 10 mg PO BEDTIME [facility] Last Admin: 06/26/25 21:12 Dose: 10 mg Documented By: GILBERTO Oxycodone HCl (Oxycodone Hcl Immed Release 5 Mg Tablet) 5 mg PO Q4H PRN PRN Reason: Pain, Moderate(Pain Scale 4-6) Senna (Sennosides 8.6 Mg Tablet) 17.2 mg PO BEDTIME [facility] Last Admin: 06/26/25 21:13 Dose: 17.2 mg Documented By: GILBERTO Sodium Chloride (0.9 % Sodium Chloride Flush 3 Ml Syringe) 3 ml IVFLUSH QSHIFT [facility] Last Admin: 06/27/25 08:10 Dose: 3 ml Documented By: WES Labs 06/26/25 06:10 06/27/25 05:27 Labs: Laboratory Results - last 24 hr 06/27/25 05:27 Hold Purple Top SEE NOTE Anion Gap 14 Estim Creat Clear Calc 41.1 Estimated GFR 53 Fasting Glucose 154 H Calcium 8.4 Microbiology Microbiology Results: Microbiology 06/25/25 08:39 Blood Culture - Preliminary Blood - Venous No growth after 24 hours. 06/25/25 08:58 Blood Culture - Preliminary Blood - Venous No growth after 24 hours. Procedures Date of Service Date of Service: 06/27/25 Progress Note: A&P Assessment and plan (1) Paroxysmal atrial fibrillation: Status: Acute (2) Biliary dyskinesia: Status: Acute Plan Tolerating solid diet without any abd pain. Discharge held yesterday due to HR, a fib. Hospitalists following. HR improved this morning. Possible dc today if medically cleared with f/u in office in 1-2 weeks for the biliary dyskinesia. Time Spent With Patient Time: Total time managing care of this patient today ____ minutes. Quality Stroke Does the patient have a stroke diagnosis?: No VTE Prior VTE?: No VTE Risk Level:: Surgical - high VTE Device Contraindication: N/A - Device Ordered VTE Drug Contraindication: Treatment Not Indicated
--- NOTE | 2025-06-27 10:47 | P.PNIM_ITS ---
Subjective Subjective Date of Service: 06/27/25 Interval History: Seen and examined this morning Follow-up for medical consultation Heart rate controlled Patient continues to deny dizziness, shortness of breath, chest pain, palpitations Review of Systems Review of Systems: Yes all other systems are reviewed and are negative Constitutional Constitutional: Denies chills and Denies fever(s) Cardiovascular Cardiovascular: Denies chest pain, Denies palpitations and Denies dyspnea Respiratory Respiratory: Denies cough and Denies dyspnea Endocrine Endocrine: Denies palpitations Physical Exam 2 Vital Signs: Vital Signs: Last Vital Signs Temp 97.9 F 06/27/25 07:34 Pulse 77 06/27/25 07:34 Resp 16 06/27/25 07:34 BP 117/61 06/27/25 07:34 Pulse Ox 96 06/27/25 07:34 O2 Del Method Room Air 06/27/25 07:34 BMI result Body Mass Index 27.5 Const: General: cooperative, comfortable, no acute distress, alert and awake Nutritional Appearance: average body habitus Orientation/consciousness: p atient oriented x3 Resp: Effort & Inspection: normal respiratory effort, able to speak in complete sentences, no respiratory distress and no use of accessory muscles Cardio: Rhythm: abnormal rhythm irregularly irregular Neuro: General: patient oriented x3 Objective Data Active Medications Acetaminophen (Acetaminophen 325 Mg Tablet) 650 mg PO Q6H PRN PRN Reason: Pain, Mild 1-3,fever,headache Albuterol Sulfate (Albuterol Sulfate 90 Mcg 8 Gm Inhaler) 2 puff INHALE RQ4H PRN PRN Reason: Shortness of Breath/Wheezing Apixaban (Apixaban 5 Mg Tablet) 5 mg PO BID [facility] Last Admin: 06/27/25 08:10 Dose: 5 mg Documented By: WES Calcium Carbonate (Calcium Carbonate 750 Mg Tab.Chew) 750 mg PO Q4H PRN PRN Reason: Heartburn Dronedarone (Dronedarone Hcl 400 Mg Tablet) 400 mg PO BID [facility] Last Admin: 06/27/25 08:10 Dose: 400 mg Documented By: WES Magnesium Hydroxide (Milk Of Magnesia 30 Ml Oral.Susp) 30 ml PO DAILY PRN PRN Reason: Constipation Melatonin (Melatonin 3 Mg Tablet) 6 mg PO BEDTIME PRN PRN Reason: Insomnia Last Admin: 06/26/25 21:13 Dose: 6 mg Documented By: GILBERTO Morphine Sulfate (Morphine Sulfate 4 Mg/Ml Cartridge) 3 mg IVPUSH Q4H PRN; Protocol PRN Reason: Pain, Severe (Pain Scale 7-10) Omeprazole (Omeprazole 40 Mg Capsule.Dr) 40 mg PO DAILY@0630 [facility] Last Admin: 06/27/25 04:55 Dose: 40 mg Documented By: BRI Ondansetron HCl (Ondansetron Hcl 4 Mg/2 Ml Vial) 4 mg IVPUSH Q8H PRN PRN Reason: Nausea and Vomiting Oxybutynin Chloride (Oxybutynin Chloride Er 5 Mg Tab.Er.24) 10 mg PO BEDTIME [facility] Last Admin: 06/26/25 21:12 Dose: 10 mg Documented By: GILBERTO Oxycodone HCl (Oxycodone Hcl Immed Release 5 Mg Tablet) 5 mg PO Q4H PRN PRN Reason: Pain, Moderate(Pain Scale 4-6) Senna (Sennosides 8.6 Mg Tablet) 17.2 mg PO BEDTIME [facility] Last Admin: 06/26/25 21:13 Dose: 17.2 mg Documented By: GILBERTO Sodium Chloride (0.9 % Sodium Chloride Flush 3 Ml Syringe) 3 ml IVFLUSH QSHIFT [facility] Last Admin: 06/27/25 08:10 Dose: 3 ml Documented By: WES Labs 06/26/25 06:10 06/27/25 05:27 Labs: Laboratory Results - last 24 hr 06/27/25 05:27 Hold Purple Top SEE NOTE Anion Gap 14 Estim Creat Clear Calc 41.1 Estimated GFR 53 Fasting Glucose 154 H Calcium 8.4 Microbiology Microbiology Results: Microbiology 06/25/25 08:39 Blood Culture - Preliminary Blood - Venous No growth after 24 hours. 06/25/25 08:58 Blood Culture - Preliminary Blood - Venous No growth after 24 hours. Assessment and Plan (1) Paroxysmal atrial fibrillation: Status: Acute (2) Hyperkalemia: Status: Acute Plan This is a 64-year-old female with a past medical history of Hogan syndrome, diet controlled diabetes, paroxysmal AFib, metastatic carcinoid tumor status post surgery, history of small-bowel resection, history of SBO; presented to the hospital today with a chief complaint of right lower quadrant abdominal pain since 16:00 associated nausea. Concern for possible acute cholecystitis. Abdominal pain: ultrasound showed gallbladder wall thickening. HIDA scan negative for acute cholecystitis, likely biliary dyskinesia management as per general surgery - plan for outpatient follow up in the office currently tolerating regular diet Diabetes: diet controlled Insulin sliding scale Paroxysmal AFib with RVR likely due to holding multaq Multaq now resumed and HR improved. still remains in afib Anticoagulation with Eliquis resumed pt asymptomatic d/w cardiology, ok for discharge with current dose multaq, will schedule follow up EKG in the office Hyperkalemia resolved Thank you for allowing us to participate in the care of this patient, we will sign off at this time. Quality Stroke Does the patient have a stroke diagnosis?: No VTE Prior VTE?: No VTE Risk Level:: Surgical - high VTE Device Contraindication: N/A - Device Ordered VTE Drug Contraindication: Treatment Not Indicated
[2025-06-27 11:14] VITALS: BP 112/57; PULSE 81; RESP 16; TEMP 36.4; O2SAT 97
--- NOTE | 2025-06-27 11:23 | MHC.CM.PN ---
DP: PT HAS BEEN MEDICALLY CLEARED FOR DC HOME , NO SERVICES. [facility] WILL TRANSPORT HOME.
--- NOTE | 2025-06-27 11:41 | P.DS_ITS ---
DS: Providers Provider Date of Service: 06/27/25 Date of admission: 06/25/25 15:35 Date of discharge: 06/27/25 Primary care physician: Patti Crabtree MD Attending physician on admission: Parish Sanchez Consults: 06/25/25 15:26 Consult to Hospitalist Routine Comment: Consulting Provider: [facility] [place] [facility] Reason For Exam: PAF on apixaban, carcinoid tumor Attending physician on discharge: Parish Sanchez DS: Diagnosis Discharge Diagnosis (1) Paroxysmal atrial fibrillation: Status: Acute (2) Hyperkalemia: Status: Acute DS: Summary Hospital Course Hospital Course: HPI AT ADMISSION: 64 year old female with PMH significant for Hogan syndrome, diet controlled diabetes mellitus, PAF, metastatic carcinoid tumor who presents for evaluation of abdominal pain. She reports she had been doing well until yesterday afternoon. She ate lunch without problem but developed RLQ abd pain around 4pm. This then migrated to her midabdomen and lower back. She was unable to eat dinner due to feeling poorly. The pain was associated with nausea without vomiting. Due to the persistence of pain, she was brought to the ED. Work up included CBC, BMP, LFTs which were really unremarkable. CT scan was performed which showed mild gallbladder wall thickening. ABD US was therefore obtained which again showed wall thickening without gallstones or pericholecystitic fluid, possible sludge. General surgery therefore asked to see for concern for possible acute cholecystitis. Her scan and US today appear similar to prior scan and ABD US performed on 01/21 on my review. Patient is well known to the surgical service with hx of resection carcinoid tumor involving small bowel mesentery with small bowel resection, ex laparotomy and enterolysis for SBO and hx of incisional hernia repair with mesh. She feels better after receiving pain meds this morning. She had a normal bowel movement on Monday and has been going daily. She is passing flatus. She denies fever, chills, diarrhea, constipation, change in skin or urine or stool color. HOSPITAL COURSE: Her clinical picture was overall not suggestive of acute cholecystitis or even biliary emma. It was therefore recommended to obtain HIDA with CCK to evaluate for possible acute cholecystitis or biilary dyskinesia. She was admitted for further work up and for observation given her lactic acidosis which resolved with IVF also had elevation in Cr from baseline which improved. EKG was obtained for her tachycardia, pre op and hospitalist consult obtained for medical management. HIDA was negative for acute cholecystitis but showed biliary dyskinesia with EF of 31%. She decided to hold off on cholecystectomy and her diet was advanced. Her eliquis was resumed. She unfortunately remained tachycardic and EKG showed a fib with RVR unfortunately as she had missed a few doses of her Multaq due to her poor oral intake and being in ED, however she was asymptomatic. Her HR improved with resumption and a few doses of the multaq but her HR did remain irregular. Hopsitalist discussed with cardiology who said she was ok for dc with f/u in office for repeat EKG next week. On the day of discharge she was tolerating a solid diet without abd pain, nausea or vomiting. Her abdomen was soft and nontender. She was hemodynamically stable. She was discharged to home on 06/27/25 in stable condition. She is to follow up in the office with Dr. Sanchez to discuss laparoscopic cholecystectomy further for her possible biliary dyskinesia. She is to follow up with cardiology next week. Time Attestation Discharge Coordination Time (in mins): 35 Quality: Safe Use of Opioids Does Pt have an Active Cancer Diagnosis on the Problem List?: No Quality: Stroke Does the patient have a stroke diagnosis?: No Physical Exam Vital Signs: Vital Signs: Last Vital Signs Temp 97.6 F 06/27/25 11:14 Pulse 81 06/27/25 11:14 Resp 16 06/27/25 11:14 BP 112/57 L 06/27/25 11:14 Pulse Ox 97 06/27/25 11:14 O2 Del Method Room Air 06/27/25 11:14 BMI result Body Mass Index 27.5 Const: General: comfortable, no acute distress and alert Orientation/consciousness: patient oriented x3 Resp: Effort & Inspection: normal respiratory effort Cardio: Rate: regular rate GI: Palpation (GI): Soft to palpation, nontender and no guarding Skin: General skin exam: no rashes or lesions noted Neuro: General: patient oriented x3 and moves all extremities DS: Data Data Completed and Pending Completed studies during hospitalization [Text1]: Procedures Introduction of Anesthetic Agent into Peripheral Nerves and Plexi, Percutaneous Approach (05/16/24) Release Peritoneum, Open Approach (09/18/22) Supplement Abdominal Wall with Synthetic Substitute, Open Approach (05/16/24) Labs on day of discharge: Laboratory Results - last 24 hr 06/27/25 05:27 Hold Purple Top SEE NOTE Sodium 144 Potassium 5.1 Chloride 108 Carbon Dioxide 27 Anion Gap 14 BUN 13 Creatinine 1.04 Estim Creat Clear Calc 41.1 Estimated GFR 53 Fasting Glucose 154 H Calcium 8.4 Preliminary micro results at discharge 06/25/25 08:39 Blood Culture - Preliminary Blood - Venous No growth after 48 hours. 06/25/25 08:58 Blood Culture - Preliminary Blood - Venous No growth after 48 hours. Discharge Plan Discharge Patient Disposition: Home, Self-Care Discharge Diagnosis: biliary dyskinesia Referrals: Patti Crabtree MD [Primary Care Provider, Internal Medicine] - 1 Week Parish Sanchez MD [Physician, General Surgery] - 1 Week Chapo Avelar MD [Physician, Cardiology] - 1 Week Discharge Medications: Continued Eliquis 5 mg tablet 5 mg PO BID Qty: 180 3RF meclizine 25 mg tablet 25 mg PO BID PRN (Reason: motion sickness) 90 Days Qty: 180 3RF Multaq 400 mg tablet 400 mg PO BID 90 Days Qty: 180 3RF simvastatin 20 mg tablet 20 mg PO BEDTIME Qty: 90 1RF loratadine 10 mg tablet 10 mg PO BEDTIME Qty: 90 3RF oxybutynin chloride 10 mg tablet extended release 24hr 10 mg PO BEDTIME Qty: 90 0RF montelukast 10 mg tablet 10 mg PO BEDTIME Qty: 90 1RF ferrous sulfate 325 mg (65 mg iron) Tablet 325 mg PO BID Qty: 60 4RF lactulose 10 gram/15 mL solution 15 ml PO BEDTIME PRN (Reason: Constipation) omeprazole 40 mg capsule,delayed release(DR/EC) 40 mg PO DAILY@0630 melatonin 5 mg capsule 5 mg PO BEDTIME PRN (Reason: To sleep) albuterol sulfate 90 mcg/actuation HFA aerosol inhaler 2 puff INHALATION Q4-6H PRN (Reason: Shortness Of Breath Or Wheezing) Qty: 8.5 0RF cholecalciferol (vitamin D3) 25 mcg (1,000 unit) tablet 25 mcg PO DAILY docusate sodium [Colace] 100 mg capsule 100 mg PO BID PRN (Reason: constipation) octreotide,microspheres 30 mg suspension,extended rel recon 30 mg IM Q4W Discharge Orders: Discharge Order (Routine); Ordered 06/27/25 Ordered By: Lizbet Yee Diet: Diabetic diet Activity on Discharge: As tolerated Stand Alone Forms: Patient Portal Discharge page Print Language: [place] Activity Restrictions/Additional Instructions: Follow up in office in a week. ([phone]) Follow up with Dr. Avelar for your a fib and repeat EKG. Call Your Doctor If: ? ? -Your temperature exceeds 101.5? F? ? ? -You experience excessive pain or swelling ? ? -You have an unexpected reaction to medication ? ? -You experience continued vomiting/nausea Care Plan Goals: Return to baseline health and resume normal activities. Health Concerns: paroxysmal atrial fibrillation diet controlled diabetes mellitus Plan of Treatment: F/u in office in 1 week Advance to usual diet Assessment: Improved. Discharge Date/Time: 06/27/25 12:32
== END 2025-06-27 12:32 | disposition home or self-care (01) ==
LOC: HO.ED 06-25 10:09 → HO.EDOVER 06-25 15:36 → HO.S3 06-25 19:46
PROVIDERS: Physician Assistant; Admitting Provider Physician Assistant Surgical; Emergency Provider Emergency Medicine; PCP Internal Medicine; Visit Provider Physician Assistant Surgical
DX: K82.8 Other specified diseases of gallbladder (principal); E87.5 Hyperkalemia; I48.0 Paroxysmal atrial fibrillation; R10.30 Lower abdominal pain, unspecified; R11.0 Nausea; E11.9 Type 2 diabetes mellitus without complications; Q96.9 Turner's syndrome, unspecified; R00.0 Tachycardia, unspecified; Z79.899 Other long term (current) drug therapy; Z87.19 Personal history of other diseases of the digestive system
CPT/HCPCS: 36415; 74177; 76705; 78227; 80048; 80053; 81003; 83605; 83690; 85025; 87040; 93005; 96361; 96365; 96366; 96375; 99221; 99285; A9537; J0696; J2270; J2405; J2543; J2805; J7120; Q9967

== ENCOUNTER → 2025-06-25 00:23 | Outpatient (BNV) | payer MEDICARE, MEDICAID, SELFPAY | PROVIDERS: Emergency Provider Emergency Medicine; PCP Internal Medicine; Visit Provider Surgery | DX: R10.9 Unspecified abdominal pain (principal) | CPT/HCPCS: 99222 ==

== ENCOUNTER → 2025-06-25 02:31 | Outpatient (BNV) | payer MEDICARE, MEDICAID, SELFPAY | PROVIDERS: Emergency Provider Emergency Medicine; PCP Internal Medicine; Visit Provider Radiology Diagnostic Radiology | DX: R10.84 Generalized abdominal pain (principal) | CPT/HCPCS: 76705 ==

== ENCOUNTER 2025-06-25 15:35 | Outpatient (BNV) | payer MEDICARE, MEDICAID, SELFPAY | END 2025-06-26 13:47 | PROVIDERS: Admitting Provider Physician Assistant Surgical; Emergency Provider Emergency Medicine; PCP Internal Medicine; Visit Provider Internal Medicine | DX: I48.91 Unspecified atrial fibrillation (principal) | CPT/HCPCS: 93010 ==

== ENCOUNTER 2025-06-25 15:35 | Outpatient (BNV) | payer MEDICARE, MEDICAID, SELFPAY | END 2025-06-27 10:25 | PROVIDERS: Admitting Provider Physician Assistant Surgical; Emergency Provider Emergency Medicine; PCP Internal Medicine; Visit Provider Internal Medicine | DX: I48.91 Unspecified atrial fibrillation (principal); I49.3 Ventricular premature depolarization | CPT/HCPCS: 93010 ==

== ENCOUNTER → 2025-06-25 15:35 | Outpatient (BNV) | payer MEDICARE, MEDICAID, SELFPAY | PROVIDERS: Admitting Provider Physician Assistant Surgical; Emergency Provider Emergency Medicine; PCP Internal Medicine; Visit Provider Physician Assistant Medical | DX: E87.5 Hyperkalemia (principal); I48.0 Paroxysmal atrial fibrillation; R10.9 Unspecified abdominal pain | CPT/HCPCS: 99222; 99232 ==

== ENCOUNTER 2025-07-01 15:24 | Outpatient (AMB) | payer MEDICARE, MEDICAID, SELFPAY ==
--- NOTE | 2025-07-01 15:30 | MHC.OFFVIS ---
Vital Signs 07/01/25 15:31 Height 4 ft 10 in Weight 127 lb 13.89 oz BMI 26.7 BP 120/74 Blood Pressure Location Lt brachial Position Sitting Pulse 89 Intake Visit Reasons: C d/c- Gallbladder remover clearance Intake Note: Follow-up [facility] dx and pre-op gallbladder removal with ekg University Archivist Required: No Allergies Chocolate Allergy (Mild, Verified 06/24/25 20:01) Rash environmental allergies Allergy (Mild, Verified 06/24/25 20:01) Itchy Eyes erythromycin base (Erythromycin Base) Adverse Reaction (Intermediate, Verified 06/24/25 20:01) GI UPSET ibuprofen (From Motrin) Adverse Reaction (Intermediate, Verified 06/24/25 20:01) Gastrointestinal Upset, increases pain Medication List - Last Reconciled 07/01/25 by Chapo Avelar MD albuterol sulfate 90 mcg/actuation 2 puffs inhalation Q4-6H PRN apixaban (Eliquis) 5 mg PO BID cholecalciferol (vitamin D3) 25 mcg PO DAILY docusate sodium (Colace) 100 mg PO BID PRN dronedarone (Multaq) 400 mg PO BID 90 days ferrous sulfate 325 mg PO BID lactulose 15 mL PO BEDTIME PRN loratadine 10 mg PO BEDTIME meclizine 25 mg PO BID PRN 90 days melatonin 5 mg PO BEDTIME PRN montelukast 10 mg PO BEDTIME octreotide,microspheres ER 30 mg IM Q4W omeprazole 40 mg PO DAILY@0630 oxybutynin chloride ER 10 mg PO BEDTIME simvastatin 20 mg PO BEDTIME HPI Comments Details: Jack comes for follow-up after recent hospitalization for abdominal pain and was noted to have biliary dyskinesia in his planned to undergo gallbladder surgery in the near future. However she says during the hospitalization she did not get few doses of Multaq as planned on her regular regimen also might have missed couple of dose of Eliquis she is not sure on that. However she also says she has difficulty in swallowing pills, does not have any trouble swallowing food. She says she has to crush the pills and Mibi missing some of the dose she is not sure. She came in today in his noted to be in atrial fibrillation. She is planned this surgery and I discussed with Dr. Sanchez and the surgery is not urgent at this point in time. She denies any significant heart failure symptoms. Denies any chest pain syndrome. She had a myocardial perfusion imaging last year which was within normal limits. She has overall been taking her oral anticoagulation. REPLACED BY [facility] Medical History (Updated 07/02/25 @ 08:44 by Chapo Avelar MD) Dysphagia History of COVID-19 COVID-19 vaccine administered Constipation Afib Overactive bladder Environmental allergies Neuroendocrine neoplasm of gastrointestinal tract Lipid disorder Colon polyp Gastric polyp Anemia Vitamin D deficiency Hyperlipemia Diabetes Arthritis IBS (irritable bowel syndrome) GERD (gastroesophageal reflux disease) Asthma Surgical History History of incisional hernia repair (05/15/24) Hx of resection of small bowel H/O exploratory laparotomy (09/20/22) History of colonoscopy History of esophagogastroduodenoscopy Family History Father Afib Pneumonia Brother Afib Heart disease Brother Heart disease Mother Unknown family medical history Social History Household Members: None Housing: Apartment Housing Other:: mental health association [facility] Are you a primary career services assistant to a significant other at home: No Do you presently have 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 or 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) Alcohol intake: never Comment: TAB alarm Patient Tobacco Use Status: Never used Tobacco e-Cigarette/Vaping Use: Never Used Second Hand Smoke Exposure: No Advance Directives Date on File: 12/01/21 service: No Current occupational status: disabled Cognitive needs: No Hearing needs: No Vision needs: Yes Review of Systems Const Denies chills, Denies fatigue, Denies fever(s), Denies frequent falls, Denies weakness, Denies weight gain and Denies weight loss ENT Denies dizziness Card Denies chest pain, Denies leg edema, Denies lightheadedness, Denies palpitations, Denies dyspnea, Denies dyspnea on exertion, Denies orthopnea and Denies other (loss of consciousness) Resp Denies cough, Denies dyspnea and Denies dyspnea on exertion GI Denies hematochezia and Denies change in stool character Musc Denies abnormal gait, Denies muscle weakness, Denies numbness, Denies radiating pain into limb and Denies tingling Neuro Denies abnormal gait, Denies dizziness, Denies frequent falls, Denies numbness, Denies tingling and Denies weakness Endo Denies fatigue and Denies palpitations Physical Exam Vital Signs: Last Vital Signs Pulse 89 07/01/25 15:31 BP 120/74 07/01/25 15:31 BMI result Body Mass Index 26.7 Last Vital Signs Temp 97.9 F 05/19/24 06:59 Pulse 81 05/19/24 06:59 Resp 17 05/19/24 06:59 BP 132/61 05/19/24 06:59 Pulse Ox 92 05/19/24 06:59 O2 Del Method Room Air 05/19/24 06:59 BMI result Body Mass Index 29.0 Const General: cooperative, comfortable, no acute distress, alert and awake Nutritional Appearance: average body habitus Orientation/consciousness: patient oriented x3 HEENT Head: Yes normocephalic and Yes atraumatic Neck Neck: Yes trachea midline, Yes supple and Yes no JVD Resp Effort & Inspection: decreased respiratory effort Auscultation: no rales, no wheezes and diminished lung sounds Cardio Jugular venous distension: no JVD Palpation: normal PMI Rhythm: abnormal rhythm irregularly irregular Heart sounds: S1 normal heart sound present, S2 normal heart sound present, no click, no gallops, no murmurs and no rubs GI Inspection: Yes distended Auscultation: Hypoactive bowel sounds present Skin General skin exam: no rashes or lesions noted Neuro General: patient oriented x3 and no focal motor deficits Extrem General: No clubbing, No cyanosis and Yes edema Office Procedures EKG Details: EKGs shows atrial fibrillation with nonspecific T-wave changes 40313-[id number], Complete Assessment & Plan Assessment & Plan (1) Afib: Comment: taking eliquis-sees Dr. Avelar Code(s): I48.91 - Unspecified atrial fibrillation Category: Medical Plan: Recurrent atrial fibrillation in this elderly woman probably due to inadequate dosing and missing doses while she was hospitalized and probably inadequate dosing due to her inability take her pills as prescribed. This might be an issue going forward. However we discussed with surgery and this surgery planned is not urgent. I do not think this is a failure of Multaq therapy at this point time. I have advised her to continue Multaq therapy as well as Eliquis therapy. Given however she has missed some doses of Eliquis, would need to pursue SHANE guided cardioversion. We discussed the risk of SHANE and cardioversion including benefits and alternatives. She understands agrees. Will schedule this for next week. Advised to continue current medications without discontinuation. She will need at least 4-6 weeks post cardioversion to not undergo surgery as there can not been interruption oral anticoagulation therapy to reduce risk of stroke. (2) Orthostatic hypotension: Code(s): I95.1 - Orthostatic hypotension Category: Medical Plan: Prior history of orthostatic hypotension. Currently blood pressure is well optimized. Importance of regular blood check at home was discussed. Advised to maintain adequate oral hydration as well as proper salt intake. She understands and agrees. (3) Preop cardiovascular exam: Code(s): Z01.810 - Encounter for preprocedural cardiovascular examination Category: Medical Plan: Preoperative cardiovascular risk stratification for gallbladder surgery which is considered intermediate risk surgery. Her myocardial perfusion imaging last year was within normal limits. This surgery he is not urgent. At this point time she is optimized to undergo surgery after we pursue rhythm control approach. She will have to wait at least 4 weeks post cardioversion to reduce risk of thromboembolic complication. Eliquis can be withheld for 3 days prior to the surgery and resumed as soon as possible after surgery with associated thromboembolic risk. Would continue Multaq through the procedure. Will follow with her in 3 months time, sooner p.r.n.. Thank you for allowing me to partake in her care Orders: Orders Cardioversion 8 Days I48.0 - Paroxysmal atrial fibrillation Medications: New dronedarone (Multaq) must administer with a meal/food 400 mg PO BID 60 tabs 2RF Discontinued dronedarone (Multaq) Discontinued Reason: Doctor's Order 400 mg PO BID 90 days 180 tabs 3RF Coding Level of Care Code Est Pt Level 4 (86750) Complex EM visit Add On G2211 Diagnoses Afib I48.91 Orthostatic hypotension I95.1 Preop cardiovascular exam Z01.810 CPT Codes EKG - CPT: 39960-[id number], Complete ([id number])
[2025-07-01 15:31] VITALS: BP 120/74; PULSE 89; BMI 26.7
--- OUTSIDE RECORDS SUMMARY | 2025-07-01 16:28 | XMS_ITS | Clinical Summary ---
Author Organization [facility] Address [address] [facility] [address] [place] [phone] Phone Care Team Providers Care Trailer Truck Driver Name Role Phone Patti Crabtree MD Primary Care Provider [phone] Allergies Active Allergy Reactions Criticality Noted Date [...] VACCINES (1 of 2) 2009 COVID-19 VACCINE (1 - 2023-2 5 season) 2024 OSTEOPOROSIS SCREENING INITI AL (ONE-TIME) 2024 INFLUENZA VACCINE (#1) 2025 RSV VACCINE (1 - 1-dose 75+ series) [...] file Insurance MEDICARE PART A & B [facility] MEDICARE PART A & [place] B [facility] Care Teams Trailer Truck Driver Relationship Specialty Start Date End Date Patti Crabtree MD [address] [facility] [place] [address] PCP - General Internal Medicine 01/26/23 Additional Source Comments The information contained in this document represents components of the legal health record. It is not the complete legal health record.[facility]
--- OUTSIDE RECORDS SUMMARY | 2025-07-01 16:28 | XMS_ITS | Clinical Summary ---
Author Organization [address] [facility] Address [address] [place] [address] Phone Care Team Providers Care Splicing Supervisor Name Role Phone Patti Crabtree MD Primary Care Provider [phone] Allergies Active Allergy Reactions Criticality Noted Date [...] type 2 (diabetes mellitus , type 2) ([facility] V24, [facility] V28) 01/18/2012 Down syndrome 01/18/2012 Dysfunctional uterine bleeding 01/18/2012 Anemia 01/18/2012 Esophageal reflux 01/18/2012 Mild intellectual disability 01/18/2012 Paroxysmal A-fib ([facility] V24, [facility] V28) 12/29 Overview (12/25/2024): suppressed on Multaq Encounters Date Type Department Care Team Description 05/21/2025 2:30 PM EDT Consult Orthopedic Surgery - [place] [address] [facility] [address] [place] [phone] Venancio Vásquez, DPM Dermatophytosis of nail (Primary Dx); Type 2 diabetes mellitus without complications ([facility] V24, [facility] V28); Hammer toe of left foot; Acquired hammer toe of right foot from Last 3 Months Medical History Medical History Date Comments Hypertension 01/18/2012 DX:Hypertension Historical Medical DX 01/18/2012 DX:Hyperli pidemia LDL goal < 70 DM type 2 (diabetes mellitus , type 2) ([facility] V24, [facility] V28) 01/18/2012 DX:DM type 2 (diabetes naya itus, type 2) ([facility]) Paroxysmal A-fib ([facility] V2 4, [facility] V28) 01/18/2012 DX:Paroxysmal A-fib ([facility]) Esophageal reflux 01/18/2012 DX:Esophageal reflux H/O: GI [...] PM EDT Office Visit Orthopedic Surgery - [place] [address] [phone] Venancio Vásquez, DPM [address] [phone] Health Maintenance Due Date Last Done Comments Breast Cancer Screening 1959 Diabetes: Annual GFR (Glomer ular Filtration Rate) 1959 Diabetes: Annual Foot Exam 1969 Diabetes: Annual Retina Eye Exam 1969 DTaP,Tdap,and Td Vaccines (1 - Tdap) 1978 Cervical Cancer Screening: P ap Smear 1980 Pneumococcal Vaccine: 50+ Ye ars (2 of 2 - PCV) 12/29/2007 12/28/2006 Zoster Vaccines (1 of 2) 2009 Depression Screening 10/30/2024 Cholesterol Screening (Lipid Panel) 12/19/2024 Colorectal Cancer Screening: Colonoscopy 12/19/2024 Diabetes: Annual Urine Albumin-Creatinine Ratio (uACR) 12/19/2024 Diabetes: Blood Sugar Contro l Test (HGBA1C) 12/19/2024 Falls Risk Assessment 12/19/2024 Hepatitis C Screening 12/19/2024 Hypertension/CHF/CAD Annual BMP Blood Test 12/19/2024 Medicare Annual Wellness Visit 12/19/2024 Osteoporosis Screening (Bone Density Screening) 12/19/2024 Social Influencers of Health Screening 12/19/2024 COVID-19 Vaccine (1 - 2023-2 5 season) 2025 Influenza Vaccine (#1) 2025 RSV Immunization Adult [...] Insurance MEDICARE MEDICAID - [place] Care Teams Splicing Supervisor Relationship Specialty Start Date End Date Ptati Crabtree MD [address] [place] [address] PCP - General Internal Medicine 12/19/24
== END 2025-07-01 16:24 | disposition home or self-care (01) ==
PROVIDERS: PCP Internal Medicine; Visit Provider Internal Medicine Cardiovascular Disease
DX: I48.91 Unspecified atrial fibrillation (principal); I95.1 Orthostatic hypotension; Z01.810 Encounter for preprocedural cardiovascular examination
CPT/HCPCS: 93010; 99214; G2211

== ENCOUNTER → 2025-07-01 15:24 | Outpatient (BNVA) | payer MEDICARE, MEDICAID, SELFPAY | PROVIDERS: PCP Internal Medicine; Visit Provider Internal Medicine Cardiovascular Disease | DX: Z01.818 Encounter for other preprocedural examination (principal); N32.81 Overactive bladder | CPT/HCPCS: 93005; 99212 ==

== ENCOUNTER 2025-07-16 10:35 | Day surgery (SDC) | payer MEDICARE, MEDICAID, SELFPAY ==
--- OUTSIDE RECORDS SUMMARY | 2025-07-09 17:38 | XMS_ITS | Clinical Summary ---
Author Organization [address] [facility] Address [address] [place] [address] Phone Care Team Providers Care Bottling Room Worker Name Role Phone Patti Crabtree MD Primary Care Provider [phone] Allergies Active Allergy Reactions Criticality Noted Date [...] type 2 (diabetes mellitus , type 2) ([facility] V24, [facility] V28) 01/18/2012 Down syndrome 01/18/2012 Dysfunctional uterine bleeding 01/18/2012 Anemia 01/18/2012 Esophageal reflux 01/18/2012 Mild intellectual disability 01/18/2012 Paroxysmal A-fib ([facility] V24, [facility] V28) 12/29 Overview (12/25/2024): suppressed on Multaq Encounters Date Type Department Care Team Description 05/21/2025 2:30 PM EDT Consult Orthopedic Surgery - [place] [address] [facility] [address] [place] [phone] Venancio Vásquez, DPM Dermatophytosis of nail (Primary Dx); Type 2 diabetes mellitus without complications ([facility] V24, [facility] V28); Hammer toe of left foot; Acquired hammer toe of right foot from Last 3 Months Medical History Medical History Date Comments Hypertension 01/18/2012 DX:Hypertension Historical Medical DX 01/18/2012 DX:Hyperli pidemia LDL goal < 70 DM type 2 (diabetes mellitus , type 2) ([facility] V24, [facility] V28) 01/18/2012 DX:DM type 2 (diabetes naya itus, type 2) ([facility]) Paroxysmal A-fib ([facility] V2 4, [facility] V28) 01/18/2012 DX:Paroxysmal A-fib ([facility]) Esophageal reflux 01/18/2012 DX:Esophageal reflux [...] PM EDT Office Visit Orthopedic Surgery - [place] [id number] [phone] Venancio Vásquez, DPM [address] [phone] Health Maintenance Due Date Last Done Comments Breast Cancer Screening 1959 Diabetes: Annual GFR (Glomer ular Filtration Rate) 1959 Diabetes: Annual Foot Exam 1969 Diabetes: Annual Retina Eye Exam 1969 DTaP,Tdap,and Td Vaccines (1 - Tdap) 1978 Pneumococcal Vaccine: 50+ Ye ars (2 of [...] Insurance MEDICARE MEDICAID - [place] Care Teams Bottling Room Worker Relationship Specialty Start Date End Date Patti Crabtree MD [address] [place] [address] PCP - General Internal Medicine 12/19/24
--- OUTSIDE RECORDS SUMMARY | 2025-07-09 17:38 | XMS_ITS | Clinical Summary ---
Author Organization [facility] Address [address] [facility] [address] [place] [address] Phone Care Team Providers Care Investor Relations Director Name Role Phone Patti Crabtree MD Primary Care Provider [phone] Allergies Active Allergy Reactions Criticality Noted Date [...] DEPRESSION SCREENING 1971 HEPATITIS C SCREENING 1977 SCREENING FOR DIABETES 1994 MAMMOGRAM 1999 COLOGUARD 2004 COLONOSCOPY 2004 COLORECTAL CANCER SCREENING 2004 FIT TEST 2004 FOBT 2004 SIGMOIDOSCOPY 2004 VIRTUAL COLONOSCOPY 2004 PNEUMOCOCCAL VACCINES (50+ years) (2 of 2 - PCV) 2009 12/28/2006, 12/28/2006 ZOSTER VACCINES (1 of 2) 2009 OSTEOPOROSIS SCREENING INITI AL (ONE-TIME) 2024 INFLUENZA VACCINE (#1) 2025 COVID-19 VACCINE (1 - 2023-2 5 season) 2025 RSV VACCINE (1 - 1-dose 75+ [...] [place] A [place] [facility] [place] [facility] [facility] Care Teams Investor Relations Director Relationship Specialty Start Date End Date Patti Crabtree MD [address] [facility] [place] [address] PCP - General Internal Medicine 01/26/23 Additional Source Comments The information contained in this document represents components of the legal health record. It is not the complete legal health record.[facility]
--- NOTE | 2025-07-14 14:43 | HO.ANESPROP2 ---
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 Recently hospitalized for abdominal pain, HIDA suggested biliary dyskinesia, managed conservatively; will likely have cholecystectomy 4-6 weeks post cardioversion PMFSH Active Problems Active Problems: All Active Problems (Updated 07/08/25 @ 15:05 by Maria Guadalupe Ellis MD) Afib (Acute) Biliary dyskinesia (Acute) Uses walker (Acute) Dysphagia (Acute) Encounter for diabetic foot exam (Acute) Difficulty hearing (Acute) Atypical pneumonia (Acute) Postop check (Acute) Rash (Acute) History of incisional hernia repair (Acute 05/15/24) Preop cardiovascular exam (Acute) Incisional hernia (Acute) Gait instability (Acute) Diet-controlled type 2 diabetes mellitus (Acute) Use of cane as ambulatory aid (Acute) Vertigo (Acute) Encounter for general adult medical examination with abnormal findings (Acute) Lipid disorder (Acute) Low blood pressure (Acute) Paroxysmal atrial fibrillation (Acute) Metastatic carcinoid tumor (Chronic) Hyperkalemia (Acute) Vitamin D deficiency (Acute) Chronic vertigo (Acute) Hospital discharge follow-up (Acute) Orthostatic hypotension (Acute) Dizziness (Acute) Chest discomfort (Acute) Stomach upset (Acute) GERD (gastroesophageal reflux disease) (Acute) Hospital discharge follow-up (Acute) Non-cardiac chest pain (Acute) Upper respiratory tract infection (Acute) Small bowel obstruction (Acute) Hogan syndrome (Acute) Carcinoid tumor (Acute) S/P exploratory laparotomy (Acute) IBS (irritable bowel syndrome) (Acute) Constipation (Acute) Overactive bladder (Acute) Environmental allergies (Acute) Neuroendocrine neoplasm of gastrointestinal tract (Chronic) Past Medical History Medical History Dysphagia History of COVID-19 COVID-19 vaccine administered Constipation Afib Overactive bladder Environmental allergies Neuroendocrine neoplasm of gastrointestinal tract Lipid disorder Colon polyp Gastric polyp Anemia Vitamin D deficiency Hyperlipemia Diabetes Arthritis IBS (irritable bowel syndrome) GERD (gastroesophageal reflux disease) Asthma Family History Family History Father Afib Pneumonia Brother Afib Heart disease Brother Heart disease Mother Unknown family medical history Family history of problems with anesthesia: No Surgical History Surgical History History of incisional hernia repair (05/15/24) Hx of resection of small bowel H/O exploratory laparotomy (09/20/22) History of colonoscopy History of esophagogastroduodenoscopy History of Problems with Anesthesia: No Social History Social History Household Members: None Housing: Apartment Housing Other:: [facility] health [facility] Are you a primary respiratory care specialist to a significant other at home: No Do you presently have 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 or 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 ([employer]) Alcohol intake: never Comment: TAB alarm Patient Tobacco Use Status: Never used Tobacco e-Cigarette/Vaping Use: Never Used Second Hand Smoke Exposure: No Use of substances other than those prescribed or required for medical reasons: No Are you DNR?: No Advance Directives: No Advance Directives Information Provided: Yes Advance Directives Date on File: 12/01/21 service: No Current occupational status: disabled Cognitive needs: No Hearing needs: No Vision needs: Yes Meds Allergies Allergy/AdvReac Type Severity Reaction Status Date / Time Chocolate Allergy Mild Rash Verified 07/16/25 11:05 environmental allergies Allergy Mild Itchy Eyes Verified 07/16/25 11:05 erythromycin base AdvReac Intermediate GI UPSET Verified 07/16/25 11:05 (Erythromycin Base) ibuprofen (From Motrin) AdvReac Intermediate Gastrointestinal Verified 07/16/25 11:05 Upset, increases pain Home Medications ?Medication ?Instructions ?Recorded ?Confirmed ?Last Taken ?Type lactulose 10 gram/15 mL oral 15 ml PO BEDTIME PRN Constipation 05/15/24 07/16/25 Unknown History solution cholecalciferol (vitamin D3) 25 25 mcg PO DAILY 03/27/25 07/16/25 06/24/25 History mcg (1,000 unit) tablet docusate sodium 100 mg capsule 100 mg PO BID PRN constipation 03/27/25 07/16/25 Unknown History (Colace) octreotide,microspheres 30 mg 30 mg IM Q4W 03/27/25 07/16/25 05/28/25 History intramuscular susp, extended release melatonin 5 mg capsule 5 mg PO BEDTIME PRN To sleep 06/25/25 07/16/25 Unknown History omeprazole 40 mg capsule,delayed 40 mg PO DAILY@0630 06/25/25 07/16/25 07/16/25 09:30 History release Exam Pertinent Lab Results Pertinent Lab Results: Laboratory Tests 06/26/25 06/27/25 06:10 05:27 WBC 8.1 RBC 3.46 L Hgb 10.7 L Hct 33.7 L Plt Count 226 Sodium 144 Potassium 5.1 BUN 13 Creatinine 1.04 Narrative Narrative: EKG 07/01/25 at cardiology follow up: Afib rate 76 ECHO 04/2024 Conclusions: - The left ventricular systolic function is normal. The calculated ejection fraction is 68% by biplane method. - No obvious valvular pathology seen on this study. Cardiolite stress Test 2023 Impression: 1. Myocardial perfusion imaging study shows likely normal myocardial perfusion 2. Gated LVEF is 62% 3. Transient ischemic dilatation not present Assessment and Plan Final Anesthetic Review Family History of Problems with Anesthesia: No History of Problems with Anesthesia: No Documented by User: Shanika Howell MD 07/16/25 12:16 [facility] Past Medical History Medical History Dysphagia History of COVID-19 COVID-19 vaccine administered Constipation Afib Overactive bladder Environmental allergies Neuroendocrine neoplasm of gastrointestinal tract Lipid disorder Colon polyp Gastric polyp Anemia Vitamin D deficiency Hyperlipemia Diabetes Arthritis IBS (irritable bowel syndrome) GERD (gastroesophageal reflux disease) Asthma Family History Family History Father Afib Pneumonia Brother Afib Heart disease Brother Heart disease Mother Unknown family medical history Surgical History Surgical History History of incisional hernia repair (05/15/24) Hx of resection of small bowel H/O exploratory laparotomy (09/20/22) History of colonoscopy History of esophagogastroduodenoscopy Social History Social History Household Members: None Housing: Apartment Housing Other:: [facility] Are you a primary respiratory care specialist to a significant other at home: No Do you presently have 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 or 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 ([employer]) Alcohol intake: never Comment: TAB alarm Patient Tobacco Use Status: Never used Tobacco e-Cigarette/Vaping Use: Never Used Second Hand Smoke Exposure: No Use of substances other than those prescribed or required for medical reasons: No Are you DNR?: No Advance Directives: No Advance Directives Information Provided: Yes Advance Directives Date on File: 12/01/21 service: No Current occupational status: disabled Cognitive needs: No Hearing needs: No Vision needs: Yes Meds Allergies Allergy/AdvReac Type Severity Reaction Status Date / Time Chocolate Allergy Mild Rash Verified 07/16/25 11:05 environmental allergies Allergy Mild Itchy Eyes Verified 07/16/25 11:05 erythromycin base AdvReac Intermediate GI UPSET Verified 07/16/25 11:05 (Erythromycin Base) ibuprofen (From Motrin) AdvReac Intermediate Gastrointestinal Verified 07/16/25 11:05 Upset, increases pain Home Medications ?Medication ?Instructions ?Recorded ?Confirmed ?Last Taken ?Type lactulose 10 gram/15 mL oral 15 ml PO BEDTIME PRN Constipation 05/15/24 07/16/25 Unknown History solution cholecalciferol (vitamin D3) 25 25 mcg PO DAILY 03/27/25 07/16/25 06/24/25 History mcg (1,000 unit) tablet docusate sodium 100 mg capsule 100 mg PO BID PRN constipation 03/27/25 07/16/25 Unknown History (Colace) octreotide,microspheres 30 mg 30 mg IM Q4W 03/27/25 07/16/25 05/28/25 History intramuscular susp, extended release melatonin 5 mg capsule 5 mg PO BEDTIME PRN To sleep 06/25/25 07/16/25 Unknown History omeprazole 40 mg capsule,delayed 40 mg PO DAILY@0630 06/25/25 07/16/25 07/16/25 09:30 History release Exam Airway Mallampati Class: III TM Dist: <=3cm Neck ROM: Full Heart: af Lungs: cta Assessment and Plan Assessment Anesthesia Assessment: Anesthesia Plan Discussed and Chart Reviewed Final Anesthetic Review NPO: Yes ASA Class: III Final Preanesthetic Review: No Changes in Pt Med Stat, Meds/Allgs Chart Reviewed, Consent Obtained/Reviewed and Anes Risks/Benef Reviewed Patient Risk: Intermediate Procedure Risk: Low Anesthetic Plan Anesthetic Plan: MAC: and Agree w/ Assess. and Plan Disposition: Standard PACU
[2025-07-16 11:07] VITALS: BMI 25.9
[2025-07-16 11:13] VITALS: BP 107/66; PULSE 79; RESP 16; TEMP 36.4; O2SAT 98
[2025-07-16] MEDS: Lactated Ringers 1,000 ML 100 ML IVCONT (11:30)
--- NOTE | 2025-07-16 11:58 | MHC.SHP ---
Pre-Procedural Eval Section A - 24 Hr Update-Section A only Date of Service: 07/16/25 The patient is an INPATIENT: No Changes since office visit: Yes Patient answered all questions; No Cold of Flu in the past 2 weeks, No New Medical Problems and No Changes in Medication The patient has been examined within 24 hours of the surgical procedure. The History & Physical has been completed within 30 days and I have reviewed it.: Yes Section B - Complete if H&P > 30 days Chief Complaint: Paroxysmal atrial fibrillation Allergies: Allergies Allergy/AdvReac Type Severity Reaction Status Date / Time Chocolate Allergy Mild Rash Verified 07/16/25 11:05 environmental allergies Allergy Mild Itchy Eyes Verified 07/16/25 11:05 erythromycin base AdvReac Intermediate GI UPSET Verified 07/16/25 11:05 (Erythromycin Base) ibuprofen (From Motrin) AdvReac Intermediate Gastrointestinal Verified 07/16/25 11:05 Upset, increases pain Plan I have reviewed the history and physical and performed a pertinent physical examination on my patient. No changes have occurred unless specified. Time Spent With Patient Time: Total time managing care of this patient today ____ minutes.
--- NOTE | 2025-07-16 14:30 | CA_ITS ---
Transesophageal Echocardiogram Patient (Last, First, Middle): Jack Urrutia N Gender: Female Date of : 1960 Age: 65 Procedure Date: 07/16/2025 Procedure Type: Transesophageal Echocardiogram Location: OP Height: 157.48 cm Weight: kg Survey Interviewer: NATHANAEL Referring MD: Chapo Avelar MD Fleet Administrator: Chapo Avelar MD Symptoms: afib, Pre cardioversion Conclusion: ??? 1. No intracardiac thrombi or masses 2. Normal LV ejection fraction at 60 65% 3. Biatrial enlargement 4. No intracardiac shunting 5. Moderate mitral regurgitation 6. No significant abnormality of the pericardium Findings Procedure Information Consent was obtained prior to the procedure. Pre SHANE oral cavity was checked and revealed mild overcrowding. The adult 3D probe was passed with no difficulty. Left Ventricle Normal left ventricular size, thickness, and systolic function. The visually estimated ejection fraction is between 60-65%. Diastolic function is indeterminate on the basis of available data. There is no evidence of a mass in the left ventricle. Right Ventricle Normal right ventricular cavity size. Atria The left atrium is moderately dilated. There is no evidence of a patent foramen ovale. There is no evidence of thrombus or mass in the left atrium. no significant smoke formation seen within the left atrium or left atrial appendage cavity. Left atrial appendage was identified multiple views without any thrombi or masses. The left upper, right upper pulmonary vein draining into left atrium normally. The right atrium is mildly dilated. There is no evidence of thrombus or mass in the right atrium. The right atrium was identified multiple abuse. IVC and SVC drain normally into the right atrium. No significant smoke or masses noted in. Aortic Valve Normal aortic valve structure and function. There is no aortic valve stenosis. There is no evidence of a mass on the aortic valve. There is no aortic valve regurgitation. Mitral Valve There is mild anterior and posterior mitral leaflet thickening. There is moderate mitral valve regurgitation. There is no mass noted on the mitral valve. Pulmonic Valve The pulmonic valve is likely normal. There is no mass noted on the pulmonic valve. There is trace pulmonic valve regurgitation. Tricuspid Valve Normal tricuspid valve structure. There is trace tricuspid valve regurgitation. There is no evidence of a mass on the tricuspid valve. Great Vessels All visible segments of the aorta are normal in size. The visualized portions of the pulmonary artery and branches are normal. Venous The inferior vena cava is normal in size and collapses greater than 50% with inspiration. Pericardium/Pleural There is no evidence of pericardial effusion. Measurements Mitral Valve MR Vol - PW Dopp: 47.06 MR VTI: 1.81 MR ERO: 26.00 MR Alias Gurjit: 0.46 MR RAD: 0.70 Updated by Chapo Avelar on 12:46 PM with Status of Final Chapo Avelar MD electronically signed on 07/21/2025 12:46:29 PM with status of Final
[2025-07-16 15:09] VITALS: BP 112/63; PULSE 72; RESP 16; TEMP 36.2; O2SAT 100
--- NOTE | 2025-07-16 15:12 | ECG_ITS ---
Test Reason : CARDIOVERSION Blood Pressure : */* mmHG Vent. Rate : 76 BPM Atrial Rate : 76 BPM P-R Int : 204 ms QRS Dur : 62 ms QT Int : 396 ms P-R-T Axes : 81 18 69 degrees QTcB Int : 445 ms Normal sinus rhythm Normal ECG When compared with ECG of 27-Jun-2025 10:25, Sinus rhythm has replaced Atrial fibrillation Referred By: Chapo Avelar Electronically Signed By: BREONNA CAMPBELL
[2025-07-16 15:24] VITALS: BP 109/65; PULSE 72; RESP 13; O2SAT 100
[2025-07-16 15:39] VITALS: BP 106/62; PULSE 71; RESP 16; O2SAT 100
--- NOTE | 2025-07-16 15:44 | HO.CARDIVERS ---
Cardioversion Procedure Note Cardioversion Date of Procedure: 07/16/2025 Ordering Provider: Arlette Avelar Performing Provider: Arlette Avelar Indication for Procedure: Persistent recurrent atrial fibrillation, symptomatic Pre-Op Diagnosis: Same Post-Op Diagnosis: Normal sinus rhythm Performed with Transesophageal Echo: Yes SHANE findings (if SHANE Performed): Dictated separately History: See my office note Consent: Verbal and Written consent was obtained from the patient before starting and after confirming oral anticoagulation and Multaq use. The patient was made aware of the risk of synchronized cardioversion including benefits and alternatives Procedure: After consent obtained, cardioversion pads were attached in anteroposterior configuration and the patient was sedated by the anesthesia team. Once adequate sedation achieved, patient was delivered 200 joules of biphasic synchronized energy in anteroposterior configuration x2 Complications: None Impression: Successful conversion to sinus rhythm after 2nd attempt Recommendations: 1. 12 lead EKG 2. Continue Multaq 3. Continue oral anticoagulation therapy 4. Follow up in the office
[2025-07-16 15:54] VITALS: BP 105/61; PULSE 69; RESP 12; O2SAT 97
[2025-07-16 16:10] VITALS: BP 100/65; PULSE 69; RESP 14; TEMP 36.3; O2SAT 97
== END 2025-07-16 17:10 | disposition home or self-care (01) ==
PROVIDERS: PCP Internal Medicine; Visit Provider Internal Medicine Cardiovascular Disease
PROC: (CPT 93312; principal; 2025-07-16 14:00)
PROC: 5A2204Z Restoration of Cardiac Rhythm, Single (ICD-10-PCS; CPT 93312; 2025-07-16 14:00)
DX: I48.19 Other persistent atrial fibrillation (principal); Z79.01 Long term (current) use of anticoagulants; I95.1 Orthostatic hypotension; D64.9 Anemia, unspecified; E78.5 Hyperlipidemia, unspecified; E11.9 Type 2 diabetes mellitus without complications; Z79.899 Other long term (current) drug therapy; Z88.1 Allergy status to other antibiotic agents; Z88.6 Allergy status to analgesic agent
CPT/HCPCS: 93312; 92960; 93005; J2250; J2704; J3010

== ENCOUNTER → 2025-07-16 10:35 | Outpatient (BNV) | payer MEDICARE, MEDICAID, SELFPAY | PROVIDERS: PCP Internal Medicine; Visit Provider Internal Medicine Cardiovascular Disease | DX: I48.91 Unspecified atrial fibrillation (principal); I51.7 Cardiomegaly; I34.0 Nonrheumatic mitral (valve) insufficiency | CPT/HCPCS: 76376; 92960; 93010; 93312; 93320; 93325 ==

== ENCOUNTER 2025-08-12 15:50 | Outpatient (AMB) | payer MEDICARE, MEDICAID, SELFPAY ==
--- NOTE | 2025-08-12 15:35 | MHC.OFFVIS ---
Vital Signs 08/12/25 16:23 Height 4 ft 10 in Weight 124 lb BMI 25.9 BP 116/56 L Blood Pressure Location Lt brachial Position Sitting Pulse 80 Intake Visit Reasons: Gallbladder problems Intake Note: Patient is seen in office for ER follow up visit, following for gallbladder problems. Pt c/o: In-pt: 06/27/25 L.OV: 05/30/25 (s/p hernia-Frank) Registered Nurse Renal Required: No Accompanied by: Self / Same As Patient Allergies Chocolate Allergy (Mild, Verified 08/12/25 16:13) Rash environmental allergies Allergy (Mild, Verified 08/12/25 16:13) Itchy Eyes erythromycin base (Erythromycin Base) Adverse Reaction (Intermediate, Verified 08/12/25 16:13) GI UPSET ibuprofen (From Motrin) Adverse Reaction (Intermediate, Verified 08/12/25 16:13) Gastrointestinal Upset, increases pain HPI Comments Details: 65-year-old female patient well known to the service with a past medical history significant for Hogan syndrome, diet-controlled diabetes mellitus, PAF, metastatic carcinoid tumor, status post small bowel resection, history of small-bowel obstruction status post lysis of adhesions recently admitted on 06/25/2025 with complaints of abdominal pain. The pain was felt mainly in the epigastrium in his episodic in nature. Workup revealed normal CBC and LFTs. A CT abdomen and pelvis revealed mild gallbladder wall thickening. Ultrasound also showed wall thickening of the gallbladder without gallstones or pericholecystic fluid but possibly some sludge. A HIDA scan revealed normal filling of the gallbladder however the ejection fraction was less than normal (31%) which may be suggestive of biliary dyskinesia. Since the patient's hospitalization she reports occasional discomfort if she eats the wrong foods. She has been unable to eat fried foods such as Uzbek fries in other greasy foods. When she does have the abdominal pain in his short-lived and usually improves after a short period of time. She presents today to discuss management of this biliary dyskinesia. [facility] Medical History Dysphagia History of COVID-19 COVID-19 vaccine administered Constipation Afib Overactive bladder Environmental allergies Neuroendocrine neoplasm of gastrointestinal tract Lipid disorder Colon polyp Gastric polyp Anemia Vitamin D deficiency Hyperlipemia Diabetes Arthritis IBS (irritable bowel syndrome) GERD (gastroesophageal reflux disease) Asthma Surgical History History of incisional hernia repair (05/15/24) Hx of resection of small bowel H/O exploratory laparotomy (09/20/22) History of colonoscopy History of esophagogastroduodenoscopy Family History Father Afib Pneumonia Brother Afib Heart disease Brother Heart disease Mother Unknown family medical history Social History Household Members: None Housing: Apartment Housing Other:: [facility] Are you a primary home health care social worker to a significant other at home: No Do you presently have 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 or 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 ([employer]) Alcohol intake: never Patient Tobacco Use Status: Never used Tobacco e-Cigarette/Vaping Use: Never Used Second Hand Smoke Exposure: No Advance Directives Date on File: 12/01/21 service: No Current occupational status: disabled Cognitive needs: No Hearing needs: No Vision needs: Yes Review of Systems Const All systems reviewed & are unremarkable except as noted in HPI and below Physical Exam Vital Signs: Last Vital Signs Pulse 80 08/12/25 16:23 BP 116/56 L 08/12/25 16:23 BMI result Body Mass Index 25.9 Last Vital Signs Temp 97.5 F 06/26/25 07:40 Pulse 123 H 06/26/25 07:40 Resp 18 06/26/25 07:40 BP 107/71 06/26/25 07:40 Pulse Ox 97 06/26/25 07:40 O2 Del Method Room Air 06/26/25 07:40 BMI result Body Mass Index 27.5 Const General: comfortable, no acute distress and alert Orientation/consciousness: patient oriented x3 Limitations: ambulation with cane Eyes Other: Sclera nonicteric Resp Effort & Inspection: normal respiratory effort, no audible wheezes, no cough and no respiratory distress GI Palpation (GI): Soft to palpation, nontender and no guarding Percussion: Yes normal to percussion Auscultation: normal bowel sounds Rectal Exam - Female: deferred Skin General skin exam: no rashes or lesions noted and no jaundice Neuro General: patient oriented x3 and moves all extremities Extrem General: Yes no pedal edema Assessment & Plan Assessment & Plan (1) Biliary dyskinesia: Code(s): K82.8 - Other specified diseases of gallbladder Category: Medical Plan 65-year-old female patient with multiple medical problems and a prior history of bowel surgery for carcinoid tumor, small-bowel obstruction, hernia repair with mesh, presenting with a recent HIDA scan which showed a reduced ejection fraction of 31% (normal reported at 35%). The patient is currently having mild symptoms which is easily controlled with her diet. 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 Her symptoms do appear to be related to the gallbladder but due seemed to be relatively mild at this time. Because of her previous abdominal surgery there is a higher likelihood of requiring an open procedure to remove the gallbladder due to scar tissue/adhesions. I recommended we hold off on any surgery at this time but encouraged her to call should the symptoms seemed to worsen or become more frequent. She expressed understanding and agrees with the plan. She will follow up as needed. Coding Level of Care Code Est Pt Level 4 (96886) Diagnoses Biliary dyskinesia K82.8
[2025-08-12 16:23] VITALS: BP 116/56; PULSE 80; BMI 25.9
--- OUTSIDE RECORDS SUMMARY | 2025-08-12 18:23 | XMS_ITS | Clinical Summary ---
Author Organization [address] [facility] Address [address] [place] [address] Phone Care Team Providers Care Bandoleer Packer Name Role Phone Patti Crabtree MD Primary Care Provider [phone] Allergies Active Allergy Reactions Criticality Noted Date [...] type 2 (diabetes mellitus , type 2) ([facility], [facility] V28) 01/18/2012 Down syndrome 01/18/2012 Dysfunctional uterine bleeding 01/18/2012 Anemia 01/18/2012 Esophageal reflux 01/18/2012 Mild intellectual disability 01/18/2012 Paroxysmal A-fib ([facility] V24, [facility] V28) 12/29 Overview (12/25/2024): suppressed on Multaq Encounters Date Type Department Care Team Description 05/21/2025 2:30 PM EDT Consult Orthopedic Surgery - [place] [address] [facility] [address] [place] [id number] Venancio Vásquez, DPM Dermatophytosis of nail (Primary Dx); Type 2 diabetes mellitus without complications ([facility] V24, [facility] V28); Hammer toe of left foot; Acquired hammer toe of right foot from Last 3 Months Medical History Medical History Date Comments Hypertension 01/18/2012 DX:Hypertension Historical Medical DX 01/18/2012 DX:Hyperli pidemia LDL goal < 70 DM type 2 (diabetes mellitus , type 2) ([facility] V24, [facility] V28) 01/18/2012 DX:DM type 2 (diabetes naya itus, type 2) ([facility]) Paroxysmal A-fib ([facility] V2 4, [facility] V28) 01/18/2012 DX:Paroxysmal A-fib ([facility]) Esophageal reflux 01/18/2012 DX:Esophageal reflux H/O: [...] PM EDT Office Visit Orthopedic Surgery - [place] [address] [phone] Venancio Vásquez, DPM [address] [phone] Health Maintenance Due Date Last Done Comments Breast Cancer Screening 1960 Colorectal Cancer Screening: Colonoscopy 1960 Diabetes: Annual GFR (Glomer ular Filtration Rate) 1960 Diabetes: Annual Foot Exam 1969 Diabetes: Annual Retina Eye Exam 1969 DTaP,Tdap,and Td Vaccines (1 - Tdap) 1978 Pneumococcal Vaccine: 50+ Ye ars (2 of 2 - PCV) 12/29/2007 12/28/2006 Zoster Vaccines (1 of 2) 2009 Depression Screening 10/30/2024 Cholesterol Screening (Lipid Panel) 12/19/2024 Diabetes: Annual Urine Albumin-Creatinine Ratio (uACR) [...] Insurance MEDICARE [place]ICA[place] - [place] Care Teams Bandoleer Packer Relationship Specialty Start Date End Date Patti Crabtree MD [address] [place] [address] PCP - General Internal Medicine 12/19/24
--- OUTSIDE RECORDS SUMMARY | 2025-08-12 18:23 | XMS_ITS | Clinical Summary ---
Author Organization [facility] Address [address] [facility] [address] [place] [id number] Phone Care Team Providers Care Cleaner Carpet And Upholstery Name Role Phone Patti Crabtree MD Primary Care Provider [phone] Allergies Active Allergy Reactions Criticality Noted Date [...] VACCINE (#1) 2025 COVID-19 VACCINE (1 - 2024-2 6 season) 2025 RSV VACCINE (1 - 1-dose [...] file Insurance MEDICARE PART A & B [facility] MEDICARE PART A & B [place] [facility]IC[facility] [place] [facility] Care Teams Cleaner [employer]pet [employer] Upholstery Relationship Specialty Start Date End Date Patti Crabtree MD [address] [place] [id number] PCP - General Internal Medicine 01/26/23 Additional Source Comments The information contained in this document represents components of the legal health record. It is not the complete legal health record.[facility]
== END 2025-08-12 16:30 | disposition home or self-care (01) ==
PROVIDERS: PCP Internal Medicine; Visit Provider Surgery
DX: K82.8 Other specified diseases of gallbladder (principal)
CPT/HCPCS: 99214

== ENCOUNTER → 2025-08-12 15:50 | Outpatient (BNVA) | payer MEDICARE, MEDICAID, SELFPAY | PROVIDERS: PCP Internal Medicine; Visit Provider Surgery | DX: R10.13 Epigastric pain (principal); K82.8 Other specified diseases of gallbladder | CPT/HCPCS: 99212 ==

== ENCOUNTER 2025-09-12 10:58 | Emergency (ER) | payer MEDICARE, MEDICAID, SELFPAY ==
--- NOTE | 2025-09-12 | ECG_ITS ---
Test Reason : CP Blood Pressure : */* mmHG Vent. Rate : 83 BPM Atrial Rate : 83 BPM P-R Int : 204 ms QRS Dur : 64 ms QT Int : 366 ms P-R-T Axes : 79 18 57 degrees QTcB Int : 430 ms Sinus rhythm with sinus arrhythmia with occasional Premature ventricular complexes Otherwise normal ECG When compared with ECG of 16-Jul-2025 15:25, Premature ventricular complexes are now Present Referred By: Generic ED Physician Electronically Signed By: ANIKA NIÑO MD
--- NOTE | ~2025-09-12 | XR_ITS ---
EXAMINATION: XR CHEST CLINICAL INFORMATION: chest pain COMPARISON: January 18, 2024 TECHNIQUE: Frontal view of the chest was obtained. FINDINGS: Hyperinflated lungs. Pulmonary reticular pattern. Probable bronchiectasis, lingula and right middle lung lobe. No consolidation, pleural effusion or pneumothorax. Cardiomediastinal silhouette size is normal. Multilevel spondylosis, thoracic and upper lumbar spine. XR/XR chest 1V IMPRESSION: Consider COPD emphysematous type changes without acute airspace disease. Electronically signed by: Jose Manuel Mcintosh MD 09/12/2025 01:08 PM SONNY
--- NOTE | ~2025-09-12 | XR_ITS ---
EXAMINATION: XR ABDOMEN KUB CLINICAL INDICATION: Epigastric abdominal pain COMPARISON: January 04, 2025. Correlated to CT abdomen pelvis dated June 25, 2025. TECHNIQUE: AP view of the abdomen. FINDINGS: Patient's large body habitus. Gas throughout nondilated intestine. Radiopaque material right hemiabdomen. Sutures in the right hemiabdomen. Multilevel lumbar spondylosis and levoconvex curvature of the lumbar spine. Degenerative changes in the hips pronounced on the right side. XR/XR KUB IMPRESSION: No intestinal obstruction pattern. Electronically signed by: Jose Manuel Mcintosh MD 09/12/2025 01:10 PM SONNY
[2025-09-12 11:06] VITALS: BP 116/74; BP 119/56; PULSE 117; PULSE 77; RESP 18; TEMP 37.1; O2SAT 96; O2SAT 98; BMI 26.0
--- NOTE | 2025-09-12 11:44 | ED.GENADULT ---
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 Currently chest pain-free no fevers chills or nausea no vomiting has not been obstipated. Related Data Home Medications ?Medication ?Instructions ?Recorded ?Confirmed lactulose 10 gram/15 mL oral 15 ml PO BEDTIME PRN Constipation 05/15/24 09/03/25 solution cholecalciferol (vitamin D3) 25 25 mcg PO DAILY 03/27/25 09/03/25 mcg (1,000 unit) tablet docusate sodium 100 mg capsule 100 mg PO BID PRN constipation 03/27/25 09/03/25 (Colace) octreotide,microspheres 30 mg 30 mg IM Q4W 03/27/25 09/03/25 intramuscular susp, extended release melatonin 5 mg capsule 5 mg PO BEDTIME PRN To sleep 06/25/25 09/03/25 tramadol 50 mg tablet 50 mg PO DAILY 08/12/25 09/03/25 Previous Rx's ?Medication ?Instructions ?Recorded albuterol sulfate 90 mcg/actuation 2 puff inhalation Q4-6H PRN 05/08/24 aerosol inhaler Shortness Of Breath Or Wheezing #8.5 grams ferrous sulfate 325 mg (65 mg 325 mg PO BID #60 tabs 04/10/25 iron) tablet loratadine 10 mg tablet 10 mg PO BEDTIME #90 tabs 04/22/25 oxybutynin chloride 10 mg 10 mg PO BEDTIME #90 tabs 06/23/25 tablet,extended release 24 hr montelukast 10 mg tablet 10 mg PO BEDTIME #90 tabs 06/26/25 dronedarone 400 mg tablet (Multaq) 400 mg PO BID #60 tabs 07/02/25 apixaban 5 mg tablet (Eliquis) 5 mg PO BID #180 tabs 07/07/25 simvastatin 20 mg tablet 20 mg PO BEDTIME #90 tabs 08/18/25 omeprazole 40 mg capsule,delayed 40 mg PO DAILY #90 caps 08/20/25 release meclizine 25 mg tablet 25 mg PO BID PRN motion sickness 09/10/25 90 days #180 tabs Allergies Allergy/AdvReac Type Severity Reaction Status Date / Time Chocolate Allergy Mild Rash Verified 09/12/25 11:10 environmental allergies Allergy Mild Itchy Eyes Verified 09/12/25 11:10 erythromycin base AdvReac Intermediate GI UPSET Verified 09/12/25 11:10 (Erythromycin Base) ibuprofen (From Motrin) AdvReac Intermediate Gastrointestinal Verified 09/12/25 11:10 Upset, increases pain Review of Systems Constitutional: Constitutional: Reports as per [facility] Past Medical History Medical History Dysphagia History of COVID-19 COVID-19 vaccine administered Constipation Afib Overactive bladder Environmental allergies Neuroendocrine neoplasm of gastrointestinal tract Lipid disorder Colon polyp Gastric polyp Anemia Vitamin D deficiency Hyperlipemia Diabetes Arthritis IBS (irritable bowel syndrome) GERD (gastroesophageal reflux disease) Asthma Surgical History History of incisional hernia repair (05/15/24) Hx of resection of small bowel H/O exploratory laparotomy (09/20/22) History of colonoscopy History of esophagogastroduodenoscopy Family History Family History Father Afib Pneumonia Brother Afib Heart disease Brother Heart disease Mother Unknown family medical history Social History Social History Household Members: None Housing: Apartment Housing Other:: mental health association [facility] Are you a primary healthcare interpreter to a significant other at home: No Do you presently have 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 or 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 ([employer]) Alcohol intake: never Patient Tobacco Use Status: Never used Tobacco e-Cigarette/Vaping Use: Never Used Second Hand Smoke Exposure: No Advance Directives Date on File: 12/01/21 service: No Current occupational status: disabled Cognitive needs: No Hearing needs: No Vision needs: Yes Physical Exam ED Exam Exam: General: of stated age, ? PERRLA, EOMI, MMM, ? Neck: Supple, no LAD ? CV: RRR, no obvious murmurs appreciated ? Resp: ?No wheezing rales rhonchi no stridor moving air well ? Abd: ?Bowel sounds are present, epigastric tenderness, no right upper quadrant tenderness ? MSK: FROM, strength 5/5 all extremities ? Skin: Warm, dry, intact, ? Neuro: ?Alert and oriented x3, moving upper and lower extremities symmetrically, no obvious facial asymmetry noted, cranial nerves 2-12 intact Vital Signs: Vital Signs - 24 hr 09/12/25 11:06 09/12/25 14:18 09/12/25 15:41 Temperature 98.7 F 98.7 F 97.8 F Pulse Rate 77 77 71 Respiratory Rate 18 18 18 Blood Pressure 119/56 L 119/56 L 118/59 L Pulse Oximetry 98 98 96 Oxygen Delivery Method Room Air Room Air Room Air BMI result Body Mass Index 26.0 Medications Administered Discontinued Medications Generic Name Dose Route Start Last Admin Trade Name Raheemq PRN Reason Stop Dose Admin Famotidine 20 mg 09/12/25 11:56 09/12/25 12:17 Famotidine/Pf 20 Mg/2 Ml Vial IVPUSH 09/12/25 11:57 20 mg ONCE ONE Administration Sodium Chloride 1,000 mls @ 999 mls/hr 09/12/25 12:00 09/12/25 15:33 Ns IV 09/12/25 13:00 Infused .Q1H1M HERBERT Infusion Ondansetron HCl 4 mg 09/12/25 11:56 09/12/25 12:17 Ondansetron Hcl 4 Mg/2 Ml Vial IVPUSH 09/12/25 11:57 4 mg ONCE ONE Administration Medical Decision Making Medical Decision Making [facility] Narrative: 12:23 PM 09/12/2025 (Dr. Swapnil Mcnally): Multiple ER visits for abdominal pain, during last admission questionable a calculous cholecystitis, had a HIDA scan, but prior to that has had multiple ER visits in workup, I am going to hold off advanced imaging such as CT at this time, fairly benign abdominal exam does have history of IBS and GERD, KUB to evaluate for obstructive patterns, free air, ACS is a consideration as well but unlikely given that chest pain started right after she vomited, - patient's care and discussed with the patient and person who assist with the her care, as discussed workup, cardiac workup, GI workup, KUB, chest x-ray, follow up and return precautions Differential Diagnosis Differential Diagnoses: The differential diagnosis associated with the presentation includes ( Cholecystitis, pancreatitis, hepatitis, gastritis, cholangitis, choledocholithiasis, SBO, ACS) Admission/Observation Consideration of admission/observation: Escalation of care including admission/observation considered Lab Data MDM Lab Attestation statement: I reviewed the patient's lab results. 09/12/25 12:22 09/12/25 12:22 Labs: Lab Results 09/12/25 Range/Units 12:22 WBC 12.4 H (4.8-10.8) X10*3/uL RBC 3.86 L (4.20-5.50) X10*6/uL Hgb 11.9 L (12.0-16.0) g/dl Hct 35.8 L (37.0-47.0) % MCV 92.7 (80.0-98.0) fL MCH 30.8 (27.0-33.0) pg MCHC 33.2 (31.0-35.0) g/dl RDW 14.0 (11.0-16.0) % Plt Count 237 (160-400) X10*3/uL MPV 10.7 (9.4-12.3) fL Immature Gran % (Auto) 0.2 (0.0-0.4) % Neut % (Auto) 89.0 H (45-73) % Lymph % (Auto) 6.5 L (20-40) % [place] % (Auto) 4.1 (2-11) % Eos % (Auto) 0.1 (0-4) % Baso % (Auto) 0.1 (0-2) % Lymph # (Auto) 0.8 L (1.2-4.9) X10*3/uL [place] # (Auto) 0.5 (0.1-1.2) X10*3/uL Eos # (Auto) 0.0 (0.0-0.4) X10*3/uL Baso # (Auto) 0.0 (0.0-0.2) X10*3/uL Abs Immat Gran (auto) 0.03 (0.00-0.03) X10*3/uL Absolute Neuts (auto) 11.0 H (2.0-8.3) x10*3/uL Absolute Nucleated RBC 0.000 (0.0-0.012) X10*3/uL Nucleated RBC % (auto) 0.0 (0.0-0.2) /100WBC Sodium 141 (135-145) mmol/L Potassium 4.8 (3.3-5.1) mmol/L Chloride 108 (96-108) mmol/L Carbon Dioxide 27 (22-29) mmol/L Anion Gap 11 L (12-20) BUN 19 H (9-16) mg/dL Creatinine 0.89 (0.5-1.4) mg/dL Estim Creat Clear Calc 44.1 Estimated GFR > 60 Random Glucose 187 H (60-115) mg/dL Calcium 8.5 D (8.4-10.2) mg/dL Total Bilirubin 0.3 (0.0-1.0) mg/dL AST 21 (5-31) U/L ALT < 6 (0-31) U/L Alkaline Phosphatase 58 (39-117) U/L Troponin I High Sens 2.7 D (<3.5-17.0) ng/L Total Protein 6.4 L (6.5-8.0) g/dL Albumin 3.8 (3.5-5.0) g/dL Lipase 14 (8-78) U/L Independent Interpretation I performed an independent interpretation of an: EKG ( 83 beats per minute with an occasional PVC no ST-T changes no dysrhythmia) and Plain X-Ray ( no free air no obstructive patterns, no foreign bodies) Radiology Impression Discussion of test interpretation with radiology: I have reviewed the radiologist's reading. Radiologist Impression: XR/XR KUB IMPRESSION: No intestinal obstruction pattern. Discharge Plan Discharge Clinical Impression: Upset stomach, Gastroesophageal reflux disease Patient Disposition: Home, Self-Care Additional Instructions: your workup included chest x-ray, KUB x-ray, blood work EKG you received medications for upset stomach, I reviewed your prior workup, police follow up with the PCP, worsening symptoms, inability to pass gas, any other issues or concerns come back to the ER Prescriptions: No Action loratadine 10 mg tablet 10 mg PO BEDTIME Qty: 90 3RF oxybutynin chloride 10 mg tablet extended release 24hr 10 mg PO BEDTIME Qty: 90 0RF montelukast 10 mg tablet 10 mg PO BEDTIME Qty: 90 1RF Eliquis 5 mg tablet 5 mg PO BID Qty: 180 3RF simvastatin 20 mg tablet 20 mg PO BEDTIME Qty: 90 1RF omeprazole 40 mg capsule,delayed release(DR/EC) 40 mg PO DAILY Qty: 90 1RF Rx Instructions: Take one tablet daily. Best taken 30 minutes before meal meclizine 25 mg tablet 25 mg PO BID PRN (Reason: motion sickness) 90 Days Qty: 180 3RF ferrous sulfate 325 mg (65 mg iron) Tablet 325 mg PO BID Qty: 60 4RF lactulose 10 gram/15 mL solution 15 ml PO BEDTIME PRN (Reason: Constipation) melatonin 5 mg capsule 5 mg PO BEDTIME PRN (Reason: To sleep) albuterol sulfate 90 mcg/actuation HFA aerosol inhaler 2 puff INHALATION Q4-6H PRN (Reason: Shortness Of Breath Or Wheezing) Qty: 8.5 0RF cholecalciferol (vitamin D3) 25 mcg (1,000 unit) tablet 25 mcg PO DAILY docusate sodium [Colace] 100 mg capsule 100 mg PO BID PRN (Reason: constipation) octreotide,microspheres 30 mg suspension,extended rel recon 30 mg IM Q4W Multaq 400 mg tablet 400 mg PO BID Qty: 60 2RF Rx Instructions: must administer with a meal/food tramadol 50 mg tablet 50 mg PO DAILY Stand Alone Forms: Work/School Release Interventions: ED Discharge Assessment Last Done: 09/12/25 14:18 Discharge Date/Time: 09/12/25 16:42 Print Language: Vietnamese
[2025-09-12 12:26] LABS: MANUAL DIFF FLAG NO
[2025-09-12 12:30] LABS: Hematocrit 35.8 % (37.0-47.0); Hemoglobin 11.9 g/dl (12.0-16.0); Imm Gran Abs Auto 0.03 X10*3/uL (0.00-0.03); Imm Gran Pct Auto 0.2 % (0.0-0.4); Lymphocytes Absolute Auto 0.8 X10*3/uL (1.2-4.9); Mean Corpuscular HGB Conc 33.2 g/dl (31.0-35.0); Mean Corpuscular Hemoglobin 30.8 pg (27.0-33.0); Mean Corpuscular Volume 92.7 fL (80.0-98.0); NRBC Abs Auto 0.000 X10*3/uL (0.0-0.012); NRBC Pct Auto 0.0 /100WBC (0.0-0.2); Platelet Count 237 X10*3/uL (160-400); Red Blood Count 3.86 X10*6/uL (4.20-5.50); White Blood Count 12.4 X10*3/uL (4.8-10.8)
[2025-09-12 12:43] LABS: Alanine Aminotransferase < 6 U/L (0-31); Albumin Level 3.8 g/dL (3.5-5.0); Alkaline Phosphatase 58 U/L (39-117); Anion Gap 11 (12-20); Aspartate Amino Transferase 21 U/L (5-31); Blood Urea Nitrogen 19 mg/dL (9-16); Calcium 8.5 mg/dL (8.4-10.2); Carbon Dioxide 27 mmol/L (22-29); Chloride 108 mmol/L (96-108); Creatinine Clr Calc Pharmacy 44.1; Estimated Glomerular Filt Rate > 60; Lipase 14 U/L (8-78); Potassium 4.8 mmol/L (3.3-5.1); Sodium 141 mmol/L (135-145); Total Protein 6.4 g/dL (6.5-8.0)
[2025-09-12 12:50] LABS: Troponin-I High Sensitivity 2.7 ng/L (<3.5-17.0)
[2025-09-12 14:18] VITALS: BP 119/56; PULSE 77; RESP 18; TEMP 37.1; O2SAT 98
[2025-09-12 15:41] VITALS: BP 118/59; PULSE 71; RESP 18; TEMP 36.6; O2SAT 96
--- OUTSIDE RECORDS SUMMARY | 2025-09-12 17:51 | XMS_ITS | Clinical Summary ---
Author Organization [facility] Address [address] [place] [address] Phone Care Team Providers Care Licensed Insurance Agent Name Role Phone Patti Crabtree MD Primary Care Provider Allergies Active Allergy Reactions Criticality Noted Date [...] type 2 (diabetes mellitus , type 2) ([facility] V24, [facility] V28) 01/18/2012 Down syndrome 01/18/2012 Dysfunctional uterine bleeding 01/18/2012 Anemia 01/18/2012 Esophageal reflux 01/18/2012 Mild intellectual disability 01/18/2012 Paroxysmal A-fib ([facility] V24, [facility] V28) 12/29 Overview (12/25/2024): suppressed on Multaq Encounters Date Type Department Care Team Description 08/21/2025 1:30 PM EDT Office Visit Orthopedic Surgery - [place] [address] [address] Venancio Vásquez, DPM Dermatophytosis of nail (Primary Dx); Hammer toe of left foot; Acquired hammer toe of right foot; Type II diabetes mellitus with peripheral circulatory disorder ([facility] V24, [facility] V28); Metatarsalgia of both feet; Pain in toe of right foot; Pain in toe of left foot from Last 3 Months Medical History Medical History Date Comments Hypertension 01/18/2012 DX:Hypertension Historical Medical DX 01/18/2012 DX:Hyperli pidemia LDL goal < 70 DM type 2 (diabetes mellitus , type 2) ([facility] V24, [facility] V28) 01/18/2012 DX:DM type 2 (diabetes naya itus, type 2) ([facility]) Paroxysmal A-fib ([facility] V2 4, [facility] V28) 01/18/2012 DX:Paroxysmal A-fib ([facility]) Esophageal reflux 01/18/2012 DX:Esophageal reflux [...] Care Team (Late st Contact Info) Description 11/26/2025 3:30 PM EST Office Visit Orthopedic Surgery - [place] [address] [address] Venancio Vásquez, DPM [address] [address] Health Maintenance Due Date Last [...] Health Screening 12/19/2024 COVID-19 Vaccine (1 - 2024-2 6 season) 2025 Influenza Vaccine (#1) 2025 RSV [...] Insurance MEDICARE MEDICAID - [place] Care Teams Licensed Insurance Agent Relationship Specialty Start Date End Date Patti Crabtree MD [address] [place] [address] PCP - General Internal Medicine 12/19/24
--- OUTSIDE RECORDS SUMMARY | 2025-09-12 17:51 | XMS_ITS | Clinical Summary ---
Author Organization [facility] Address [address] [facility] [address] [place] [address] Phone Care Team Providers Care Student Accounts Coordinator Name Role Phone Patti Crabtree MD Primary [...] patient's age to complete this topic IPV VACCINES Aged Out No longer eligi ble based on patient's age to complete this topic MENINGOCOCCAL VACCINES (ACWY) Aged Out No longer eligible based on patient's age to complete this topic MENINGOCOCCAL VACCINES (B) Aged Out N o longer eligible based on patient's age to complete this topic Medical Devices Not on file Insurance MEDICARE PART A & B [facility] MEDICARE PART A & [place] B [facility] Care Teams Student Accounts Coordinator Relationship Specialty Start Date End Date Patti Crabtree MD [address] [facility] [place] [address] PCP - General Internal Medicine 01/26/23 Additional Source Comments The information contained in this document represents components of the legal health record. It is not the complete legal health record.[facility]
== END 2025-09-12 16:42 | disposition home or self-care (01) ==
PROVIDERS: Emergency Provider Emergency Medicine; PCP Internal Medicine
DX: K21.9 Gastro-esophageal reflux disease without esophagitis (principal); R07.9 Chest pain, unspecified; R10.13 Epigastric pain; R11.2 Nausea with vomiting, unspecified; Q96.9 Turner's syndrome, unspecified; Z79.899 Other long term (current) drug therapy
CPT/HCPCS: 36415; 71045; 74018; 80053; 83690; 84484; 85025; 93005; 96361; 96374; 96375; 99284; 99285; J1308; J2405

== ENCOUNTER → 2025-09-12 11:08 | Outpatient (BNV) | payer MEDICARE, MEDICAID, SELFPAY | PROVIDERS: Emergency Provider Emergency Medicine; PCP Internal Medicine; Visit Provider Internal Medicine Cardiovascular Disease | DX: I49.3 Ventricular premature depolarization (principal); I49.9 Cardiac arrhythmia, unspecified | CPT/HCPCS: 93010 ==

== ENCOUNTER → 2025-09-12 11:57 | Outpatient (BNV) | payer MEDICARE, MEDICAID, SELFPAY | PROVIDERS: Emergency Provider Emergency Medicine; PCP Internal Medicine; Visit Provider Radiology Diagnostic Radiology | DX: R07.9 Chest pain, unspecified (principal); R10.13 Epigastric pain | CPT/HCPCS: 71045; 74018 ==

== ENCOUNTER 2025-09-24 18:03 | Inpatient (IN) | payer MEDICARE, MEDICAID, SELFPAY ==
--- NOTE | ~2025-09-24 | CT_ITS ---
CLINICAL HISTORY: sbo CT abdomen and pelvis with contrast Comparison: CT of the abdomen and pelvis from 06/25/2025 Findings: Emphysematous changes without consolidation of the imaged lung bases. Mild periportal edema. Mild/gallbladder wall thickening with pericholecystic fluid redemonstrated. Although nonspecific by CTs is concerning for cholecystitis. The adrenal glands appear unchanged. Spleen remains nonenlarged. Moderate to severe volume loss of the pancreas again noted. New mild free fluid in the abdomen and pelvis nonspecific and may be reactive. Mesenteric and retroperitoneal lymph nodes are nonspecific and likely reactive. No significant change in prominence of the renal pelves. No hydronephrosis. Small bowel dilatation measures up to 4 cm diameter in the left hemiabdomen. This is concerning for high-grade small bowel obstruction with multifocal interloop edema. Transition point noted in the left upper quadrant. Closed loop morphology is considered, given apparent left lower transition point. Severe stool burden present, including the cecum. The appendix is not definitively seen. Anastomosis also demonstrates transition point in the right hemiabdomen (27 of series 5). Uterus is anteverted and deviates to the right. No adnexal soft tissue mass by CT. Mild wall thickening of the mildly distended urinary bladder. No definite free intraperitoneal air by CT. Degenerative disc changes and facet arthropathy are multifocal. Mild thoracic vertebral height losses appear old/chronic. Schmorl's nodes are multifocal. Moderate osteoarthritis of the hips. IMPRESSION: Small bowel dilatation concerning for small bowel obstruction. This document has been electronically signed by: Jose Luis Florian MD on 09/25/2025 00:09:49
--- NOTE | ~2025-09-24 | XR_ITS ---
CLINICAL HISTORY: post ng tube placement 1 view chest x-ray Comparison: Chest x-ray from 09/12/2025 Findings: Enteric tube courses below the diaphragm and is partly obscured by overlying opacities. Tip is favored to be in the body of the stomach with side port of the cardia. This can be confirmed post overlying lead removal and/or repositioning. Low lung volumes with mild bibasilar atelectasis/pneumonitis. Emphysematous changes noted. No definite pneumothorax or pleural effusion in this one view study. Mild cardiomegaly accentuated by AP technique. Prominent bowel-gas is nonspecific in the imaged abdomen. Please refer to CT of the abdomen from 09/24/2025 for bowel evaluation. Degenerative changes include imaged AC joints. Imaged rib deformities appear old/chronic in this one view study. IMPRESSION: 1. Mild bibasilar atelectasis. 2. Lower portion of the enteric tube is partly obscured in the imaged abdomen. This document has been electronically signed by: Jose Luis Florian MD on 09/25/2025 02:58:42
[2025-09-24 18:17] VITALS: BP 101/56; BP 118/74; PULSE 64; PULSE 67; RESP 16; TEMP 36.7; O2SAT 97; O2SAT 99; BMI 24.3
[2025-09-24 18:40] LABS: MANUAL DIFF FLAG NO
--- OUTSIDE RECORDS SUMMARY | 2025-09-24 18:47 | XMS_ITS | Clinical Summary ---
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/2012 Paroxysmal A-fib ([facility] V24, [facility] V28) 12/29 Overview (12/25/2024): suppressed on Multaq Encounters Date Type Department Care Team Description 08/21/2025 1:30 PM EDT Office Visit Orthopedic Surgery - [place] [address] [address] Venancio Vásquez, DPM Dermatophytosis of nail (Primary Dx); Hammer toe of left foot; Acquired hammer toe of right foot; Type II diabetes mellitus with peripheral circulatory disorder ([facility] V24, [facility] V28); Metatarsalgia of both feet; Pain in toe of right foot; Pain in toe of left foot from Last 3 Months Medical History Medical History Date Comments Hypertension 01/18/2012 DX:Hypertension Historical Medical DX 01/18/2012 DX:Hyperli pidemia LDL goal < 70 DM type 2 (diabetes mellitus , type 2) ([facility] V24, [facility] V28) 01/18/2012 DX:DM type 2 (diabetes naya itus, type 2) ([facility]) Paroxysmal A-fib ([facility] V2 4, [facility] V28) 01/18/2012 DX:Paroxysmal A-fib ([facility]) Esophageal reflux 01/18/2012 DX:Esophageal reflux [...] PM EST Office Visit Orthopedic Surgery - [place] [address] [address] Venancio Vásquez, DPM [address] [address] Health Maintenance Due Date Last [...] Insurance MEDICARE [place] - [place] Care Teams Bobbin Dumper Relationship Specialty Start Date End Date Patti Crabtree MD [address] [place] [address] PCP - General Internal Medicine 12/19/24
--- OUTSIDE RECORDS SUMMARY | 2025-09-24 18:47 | XMS_ITS | Clinical Summary ---
Author Organization [facility] Address [address] [facility] [address] [place] [address] Phone Care Team Providers Care Weight And Test Bar Clerk Name Role Phone Patti Crabtree MD Primary Care Provider [phone] Allergies Active Allergy Reactions Criticality Noted Date [...] file Insurance MEDICARE PART A & B [facility] MEDICARE PART A & [place] & [facility] & [place] & [facility] MED[facility]ARE PART A & B [facility] Care Teams Weight And Test Bar Clerk Relationship Specialty Start Date End Date Patti Crabtree MD [address] [place] [address] PCP - General Internal Medicine 01/26/23 Additional Source Comments The information contained in this document represents components of the legal health record. It is not the complete legal health record.[facility]
[2025-09-24 18:54] LABS: Alanine Aminotransferase 9 U/L (0-31); Albumin Level 3.9 g/dL (3.5-5.0); Alkaline Phosphatase 64 U/L (39-117); Anion Gap 14 (12-20); Aspartate Amino Transferase 28 U/L (5-31); Blood Urea Nitrogen 25 mg/dL (9-16); Calcium 8.6 mg/dL (8.4-10.2); Carbon Dioxide 26 mmol/L (22-29); Chloride 106 mmol/L (96-108); Creatinine Clr Calc Pharmacy 29.9; Estimated Glomerular Filt Rate 40; Lipase 13 U/L (8-78); Magnesium 1.8 mg/dL (1.6-2.6); Potassium 4.5 mmol/L (3.3-5.1); Sodium 141 mmol/L (135-145); Total Protein 6.3 g/dL (6.5-8.0)
--- NOTE | 2025-09-24 19:47 | ED.GENADULT ---
HPI - General Adult General Chief complaint: Abdominal Pain Stated complaint: ABD AND BACK PAIN Time Seen by Provider: 09/24/25 19:46 Source: patient Mode of arrival: ambulatory Limitations: no limitations History of Present Illness ED Provider: Dr. Mandel [facility] narrative: This is a 65-year-old female history of SBO, 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 tumor status post partial resection, diabetes, AFib presented hospital today for evaluation of abdominal pain. Patient has had not had a bowel movement in quite some time. She has not had a bowel movement in 4 days. Patient stated that she has very nauseous. Difficulty eating due to persistent nausea. Patient stated her pain worsened yesterday. She describes this as a right-sided flank pain that radiates up into her epigastric area. Patient stated that it was originally colicky in nature however it worsened. Related Data Home Medications ?Medication ?Instructions ?Recorded ?Confirmed lactulose 10 gram/15 mL oral 15 ml PO BEDTIME PRN Constipation 05/15/24 09/03/25 solution cholecalciferol (vitamin D3) 25 25 mcg PO DAILY 03/27/25 09/03/25 mcg (1,000 unit) tablet docusate sodium 100 mg capsule 100 mg PO BID PRN constipation 03/27/25 09/03/25 (Colace) octreotide,microspheres 30 mg 30 mg IM Q4W 03/27/25 09/03/25 intramuscular susp, extended release melatonin 5 mg capsule 5 mg PO BEDTIME PRN To sleep 06/25/25 09/03/25 tramadol 50 mg tablet 50 mg PO DAILY 08/12/25 09/03/25 Previous Rx's ?Medication ?Instructions ?Recorded albuterol sulfate 90 mcg/actuation 2 puff inhalation Q4-6H PRN 05/08/24 aerosol inhaler Shortness Of Breath Or Wheezing #8.5 grams ferrous sulfate 325 mg (65 mg 325 mg PO BID #60 tabs 04/10/25 iron) tablet loratadine 10 mg tablet 10 mg PO BEDTIME #90 tabs 04/22/25 oxybutynin chloride 10 mg 10 mg PO BEDTIME #90 tabs 06/23/25 tablet,extended release 24 hr montelukast 10 mg tablet 10 mg PO BEDTIME #90 tabs 06/26/25 dronedarone 400 mg tablet (Multaq) 400 mg PO BID #60 tabs 07/02/25 apixaban 5 mg tablet (Eliquis) 5 mg PO BID #180 tabs 07/07/25 simvastatin 20 mg tablet 20 mg PO BEDTIME #90 tabs 08/18/25 omeprazole 40 mg capsule,delayed 40 mg PO DAILY #90 caps 08/20/25 release meclizine 25 mg tablet 25 mg PO BID PRN motion sickness 09/10/25 90 days #180 tabs famotidine 20 mg tablet 20 mg PO BID GERD #180 tabs 09/18/25 metoprolol tartrate 50 mg tablet 50 mg PO BID #60 tabs 09/18/25 Allergies Allergy/AdvReac Type Severity Reaction Status Date / Time Chocolate Allergy Mild Rash Verified 09/24/25 18:20 environmental allergies Allergy Mild Itchy Eyes Verified 09/24/25 18:20 erythromycin base AdvReac Intermediate GI UPSET Verified 09/24/25 18:20 (Erythromycin Base) ibuprofen (From Motrin) AdvReac Intermediate Gastrointestinal Verified 09/24/25 18:20 Upset, increases pain Review of Systems Review of Systems: Pertinent review of systems as mentioned in HPI. All other system otherwise negative. [facility] Past Medical History [facility] Narrative: Medical history as mentioned in HPI Medical History Dysphagia History of COVID-19 COVID-19 vaccine administered Constipation Afib Overactive bladder Environmental allergies Neuroendocrine neoplasm of gastrointestinal tract Lipid disorder Colon polyp Gastric polyp Anemia Vitamin D deficiency Hyperlipemia Diabetes Arthritis IBS (irritable bowel syndrome) GERD (gastroesophageal reflux disease) Asthma Surgical History History of incisional hernia repair (05/15/24) Hx of resection of small bowel H/O exploratory laparotomy (09/20/22) History of colonoscopy History of esophagogastroduodenoscopy Family History Family History Father Afib Pneumonia Brother Afib Heart disease Brother Heart disease Mother Unknown family medical history Social History Social History Household Members: None Housing: Apartment Housing Other:: [facility] Are you a primary resident care director to a significant other at home: No Do you presently have 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 or 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 ([employer]) Alcohol intake: never Patient Tobacco Use Status: Never used Tobacco e-Cigarette/Vaping Use: Never Used Second Hand Smoke Exposure: No Advance Directives: Yes Advance Directives on File: Yes Advance Directives Date on File: 12/01/21 Do you have a plan to hurt others: No Plan Patient : No service: No Current occupational status: disabled Cognitive needs: No Hearing needs: No Vision needs: Yes Physical Exam ED Exam Exam: General: Pleasant, no distress, interacting appropriately Head: Normacephalic, atraumatic ENT: oral mucosa dry, neck supple, no tracheal deviation Cardiovascular: regular rate, regular rhythm, no murmurs, rubbing, gallops Respiratory: CTAB, no wheeze, rales, rhonchi Gastrointestinal: Distended abdomen, diffuse tenderness Neurological: Awake and alert, no facial droop noted Skin: Warm and dry Psychiatric: Appropriate mood and thoughts Vital Signs: Vital Signs - 24 hr 09/24/25 18:17 09/24/25 22:30 Temperature 98.0 F 98.8 F Pulse Rate 67 60 Respiratory Rate 16 16 Blood Pressure 101/56 L 95/48 L Pulse Oximetry 99 98 Oxygen Delivery Method Room Air Room Air BMI result Body Mass Index 24.3 Medications Administered Generic Name Dose Route Start Last Admin Trade Name Freq PRN Reason Stop Dose Admin Hydromorphone HCl 0.5 mg 09/25/25 00:28 09/25/25 00:53 Hydromorphone Hcl 0.5 Mg/0.5 Ml Syringe IVPUSH 0.5 mg Q3H PRN Administration Pain, Severe (Pain Scale 7-10) Protocol Discontinued Medications Generic Name Dose Route Start Last Admin Trade Name Freq PRN Reason Stop Dose Admin Lactated Ringer's 1,000 mls @ 999 mls/hr 09/24/25 21:45 09/24/25 23:30 Lr IV 09/24/25 22:45 Infused .Q1H1M HERBERT Infusion Lactated Ringer's 1,000 mls @ 999 mls/hr 09/25/25 00:30 09/25/25 00:55 Lr IV 09/25/25 01:30 999 mls/hr .Q1H1M HERBERT Administration Iohexol 85 ml 09/24/25 23:07 11/26/25 23:07 Iohexol 350 Mg/Ml 100 Ml Infus..Btl IV 09/24/25 23:08 85 ml ONCE ONE Administration Ondansetron HCl 4 mg 09/24/25 21:39 09/24/25 22:28 Ondansetron Hcl 4 Mg/2 Ml Vial IVPUSH 09/24/25 21:40 4 mg ONCE ONE Administration Medical Decision Making Medical Decision Making [facility] Narrative: 65-year-old female history of SBO, 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 tumor status post partial resection presented hospital today for diffuse abdominal tenderness and inability to pass stool for past 4 days. Abdominal lab work was obtained the patient. No sign of leukocytosis. Patient does have elevated BUN to creatinine ratio. Patient's CT imaging was obtained due to her abdominal distention. She does have history of SBO in the past that required surgery. I suspicion that this is likely SBO in nature. CT imaging resulted. Patient does have signs of small-bowel obstruction. IV fluid given to the patient. IV Zofran given to the patient as well. Patient does not appear to be acutely vomiting at this time. I did contacted and discussed the case with Dr. Sanchez general surgeon on-call. Plan for admission to general surgery team. Discuss patient about NGT patient is hesitant as this was uncomfortable to her and she had difficulty tolerating in the past. Discuss that this was my and Dr. Sanchez recommendation to help her with her SBO. Differential Diagnosis Differential Diagnoses: The differential diagnosis associated with the presentation includes Small-bowel obstruction, gastritis, colitis, constipation Consult Healthcare Provider Management of the patient was discussed with: Hvac Maintenance Technician (Dr. Sanchez general surgeon) Lab Data [facility] Lab Attestation statement: I reviewed the patient's lab results. 09/24/25 18:37 09/24/25 18:37 Labs: Lab Results 09/24/25 Range/Units 18:37 WBC 8.1 (4.8-10.8) X10*3/uL RBC 3.71 L (4.20-5.50) X10*6/uL Hgb 11.4 L (12.0-16.0) g/dl Hct 34.1 L (37.0-47.0) % MCV 91.9 (80.0-98.0) fL MCH 30.7 (27.0-33.0) pg MCHC 33.4 (31.0-35.0) g/dl RDW 15.1 (11.0-16.0) % Plt Count 250 (160-400) X10*3/uL MPV 11.9 (9.4-12.3) fL Immature Gran % (Auto) 0.4 (0.0-0.4) % Neut % (Auto) 70.3 (45-73) % Lymph % (Auto) 18.7 L (20-40) % [place] % (Auto) 10.0 (2-11) % Eos % (Auto) 0.4 (0-4) % Baso % (Auto) 0.2 (0-2) % Lymph # (Auto) 1.5 (1.2-4.9) X10*3/uL [place] # (Auto) 0.8 (0.1-1.2) X10*3/uL Eos # (Auto) 0.0 (0.0-0.4) X10*3/uL Baso # (Auto) 0.0 (0.0-0.2) X10*3/uL Abs Immat Gran (auto) 0.03 (0.00-0.03) X10*3/uL Absolute Neuts (auto) 5.7 (2.0-8.3) x10*3/uL Absolute Nucleated RBC 0.000 (0.0-0.012) X10*3/uL Nucleated RBC % (auto) 0.0 (0.0-0.2) /100WBC Sodium 141 (135-145) mmol/L Potassium 4.5 (3.3-5.1) mmol/L Chloride 106 (96-108) mmol/L Carbon Dioxide 26 (22-29) mmol/L Anion Gap 14 (12-20) BUN 25 H (9-16) mg/dL Creatinine 1.33 (0.5-1.4) mg/dL Estim Creat Clear Calc 29.9 Estimated GFR 40 Random Glucose 183 H (60-115) mg/dL Calcium 8.6 (8.4-10.2) mg/dL Magnesium 1.8 (1.6-2.6) mg/dL Total Bilirubin 0.3 (0.0-1.0) mg/dL Direct Bilirubin 0.1 (0.0-0.5) mg/dL AST 28 (5-31) U/L ALT 9 (0-31) U/L Alkaline Phosphatase 64 (39-117) U/L Total Protein 6.3 L (6.5-8.0) g/dL Albumin 3.9 (3.5-5.0) g/dL Lipase 13 (8-78) U/L Independent Interpretation I performed an independent interpretation of an: CT Scan Radiology Impression Discussion of test interpretation with radiology: I have reviewed the radiologist's reading. Chronic Conditions Neuroendocrine tumor, small-bowel obstruction Critical Care Time Critical Care Time Critical Care Time: Yes Total Critical Care Time: 38 Attestation: Time is exclusive of separately billable procedures. Time includes: direct patient care, patient reassessment, coordination of patient care, interpretation of data (laboratory data, pulse oximetry, arterial blood gases and chest xrays), review of patient's medical records, medical consultation and documentation of patient care. Procedures excluded from critical care time: central intravenous line placement and electrocardiography. Discharge Plan Discharge Clinical Impression: Complete small bowel obstruction Patient Disposition: Admitted As Inpatient
[2025-09-24 19:51] LABS: Hematocrit 34.1 % (37.0-47.0); Hemoglobin 11.4 g/dl (12.0-16.0); Imm Gran Abs Auto 0.03 X10*3/uL (0.00-0.03); Imm Gran Pct Auto 0.4 % (0.0-0.4); Lymphocytes Absolute Auto 1.5 X10*3/uL (1.2-4.9); Mean Corpuscular HGB Conc 33.4 g/dl (31.0-35.0); Mean Corpuscular Hemoglobin 30.7 pg (27.0-33.0); Mean Corpuscular Volume 91.9 fL (80.0-98.0); NRBC Abs Auto 0.000 X10*3/uL (0.0-0.012); NRBC Pct Auto 0.0 /100WBC (0.0-0.2); Platelet Count 250 X10*3/uL (160-400); Red Blood Count 3.71 X10*6/uL (4.20-5.50); White Blood Count 8.1 X10*3/uL (4.8-10.8)
[2025-09-24] MEDS: Lactated Ringers 1,000 ML 999 ML IV (22:28)
[2025-09-24 22:30] VITALS: BP 95/48; PULSE 60; RESP 16; TEMP 37.1; O2SAT 98
[2025-09-24] MEDS: iohexoL 350 MG/ML 100 ML INFUS..BTL 85 ML IV (23:07)
[2025-09-25] VITALS (9 sets, daily range): BP systolic 100–117; BP diastolic 51–61; PULSE 64–98; RESP 14–18; TEMP 36.3–36.7; O2SAT 95–99; BMI 25.3
[2025-09-25] MEDS: Lactated Ringers 1,000 ML 999 ML IV (00:55)
[2025-09-25 00:59] LABS: Appearance Urine Clear; Glucose Urine UA Negative (Negative); PH 5.5 (5.0-9.0); Specific Gravity - Urine >= 1.030 (1.005-1.025)
--- NOTE | 2025-09-25 01:25 | HO.PM.IMCN ---
History of Present Illness Data of Consult Service Date: 09/25/25 Requesting physician: Parish Sacnhez Primary Care Provider: Patti Crabtree MD HPI Reason for consult: AFIB, AC mgmt, medical mgmt 64 year old female with PMH significant for Hogan syndrome, diet controlled diabetes mellitus, OA B hips, spondylosis of thoracic and upper lumbar spine, overactive bladder, PAF on eliquis, Cardioversions for AFIB, hernia repair with mesh, metastatic carcinoid tumor with resecton, ex lap and enterolysisi for SBO, who presents to the ED BIBA for sudden onset abdominal and back pain. Pt was admitted by General Surgery for SBO and Dr. Sanchez requested consultation for pt's medical management. Pt currently denies any abdominal pain, nausea or vomiting but is receptive to NG tubve placement which was ordered by surgery. Pt states she lives alone and has help coming in twice a week to assist with bathing. Pt follows routinely with her PCP and specialists as needed. Pt is compliant with her medications and denies any chest pain, SOB at rest or with exertion, diarrhea but has issues with constipation in general. Pt also denies any unexplained wt loss or gain and denies s/s related to UTI. Pt has no issues with swallowing and sappetite has been fairly good until yesterday. Pt denies any new medical concerns beyond the bowel obstruction. Review of Systems Review of Systems: Denies any chest pain, SOB at rest or with exertion, diarrhea but has issues with constipation in general. Pt also denies any unexplained wt loss or gain and denies s/s related to UTI. Pt has no issues with swallowing and sappetite has been fairly good until yesterday. Pt denies any new medical concerns beyond the bowel obstruction. Yes all other systems are reviewed and are negative [facility] Medical History Dysphagia History of COVID-19 COVID-19 vaccine administered Constipation Afib Overactive bladder Environmental allergies Neuroendocrine neoplasm of gastrointestinal tract Lipid disorder Colon polyp Gastric polyp Anemia Vitamin D deficiency Hyperlipemia Diabetes Arthritis IBS (irritable bowel syndrome) GERD (gastroesophageal reflux disease) Asthma Cognitive capacity: Alert and orientated X3 Functional capacity: uses cane/walker Patient : No Family History Father Afib Pneumonia Brother Afib Heart disease Brother Heart disease Mother Unknown family medical history Surgical History History of incisional hernia repair (05/15/24) Hx of resection of small bowel H/O exploratory laparotomy (09/20/22) History of colonoscopy History of esophagogastroduodenoscopy Social History Household Members: None Housing: Apartment Housing Other:: mental health association [facility] Are you a primary director of primary care to a significant other at home: No 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) Alcohol intake: never Patient Tobacco Use Status: Never used Tobacco e-Cigarette/Vaping Use: Never Used Second Hand Smoke Exposure: No Advance Directives: Yes Advance Directives on File: Yes Advance Directives Date on File: 12/01/21 Do you have a plan to hurt others: No Plan Patient : No service: No Current occupational status: disabled Cognitive needs: No Hearing needs: No Vision needs: Yes Ebola Risk: Travel/Contact With Anyone From Affected Area/s: No Has Patient Experienced Ebola Symptoms: No Meds Allergies Allergy/AdvReac Type Severity Reaction Status Date / Time Chocolate Allergy Mild Rash Verified 09/24/25 18:20 environmental allergies Allergy Mild Itchy Eyes Verified 09/24/25 18:20 erythromycin base AdvReac Intermediate GI UPSET Verified 09/24/25 18:20 (Erythromycin Base) ibuprofen (From Motrin) AdvReac Intermediate Gastrointestinal Verified 09/24/25 18:20 Upset, increases pain Active Medications: Current Medications Calcium Carbonate (Calcium Carbonate 750 Mg Tab.Chew) 750 mg PO Q4H PRN PRN Reason: Heartburn Hydromorphone HCl (Hydromorphone Hcl 0.5 Mg/0.5 Ml Syringe) 0.5 mg IVPUSH Q3H PRN; Protocol PRN Reason: Pain, Severe (Pain Scale 7-10) Last Admin: 09/25/25 00:53 Dose: 0.5 mg Lactated Ringer's (Lr) 1,000 mls @ 999 mls/hr IV .Q1H1M HERBERT Stop: 09/25/25 01:30 Last Admin: 09/25/25 00:55 Dose: 999 mls/hr Acetaminophen (Ofirmev) 1,000 mg in 100 mls @ 400 mls/hr IV Q6H PRN PRN Reason: Pain, Mild (Pain Scale 1-3) Dextrose/Lactated Ringer's (D5lr) 1,000 mls @ 125 mls/hr IVCONT .Q8H [facility] Magnesium Hydroxide (Milk Of Magnesia 30 Ml Oral.Susp) 30 ml PO DAILY PRN PRN Reason: Constipation Melatonin (Melatonin 3 Mg Tablet) 6 mg PO BEDTIME PRN PRN Reason: Insomnia Ondansetron HCl (Ondansetron Hcl 4 Mg/2 Ml Vial) 4 mg IVPUSH QID PRN PRN Reason: Nausea Oxycodone HCl (Oxycodone Hcl Immed Release 5 Mg Tablet) 5 mg PO Q6H PRN PRN Reason: Pain, Moderate(Pain Scale 4-6) Sodium Chloride (0.9 % Sodium Chloride Flush 3 Ml Syringe) 3 ml IVFLUSH QSHIFT [facility] Home Medications ?Medication ?Instructions ?Recorded ?Confirmed ?Last Taken ?Type lactulose 10 gram/15 mL oral 15 ml PO BEDTIME PRN Constipation 05/15/24 09/03/25 Unknown History solution cholecalciferol (vitamin D3) 25 25 mcg PO DAILY 03/27/25 09/03/25 06/24/25 History mcg (1,000 unit) tablet docusate sodium 100 mg capsule 100 mg PO BID PRN constipation 03/27/25 09/03/25 Unknown History (Colace) octreotide,microspheres 30 mg 30 mg IM Q4W 03/27/25 09/03/25 05/28/25 History intramuscular susp, extended release melatonin 5 mg capsule 5 mg PO BEDTIME PRN To sleep 06/25/25 09/03/25 Unknown History tramadol 50 mg tablet 50 mg PO DAILY 08/12/25 09/03/25 Unknown History Physical Exam Vital Signs and Narrative: Vital Signs: Last Vital Signs Temp 98.1 F 09/25/25 00:50 Pulse 64 09/25/25 00:50 Resp 16 09/25/25 00:50 BP 106/52 L 09/25/25 00:50 Pulse Ox 99 09/25/25 00:50 O2 Del Method Room Air 09/25/25 00:50 BMI result Body Mass Index 24.3 Alert and orientated X3, able to give good history. Neuro: CN II-X11 intact, no deficits, visual acuity intact EYES: PERRLA, EOM intact, sclera nonicteric ENT: hearing intact, no issues with swallowing, uvula midline, lips moist, nares patent no epistaxis Cardiac: S1 S2 RRR, no murmur, no JVD, no edema in Lower ext Pulmonary: lungs clear to auscultation B Abdominal: BS hypoactive in all 4 quadrants, no guarding, tenderness, rebounding MSK: strength 4/5 upper and lower extremities : no CVA tenderness no bladder distension Extremities: no edema in lower extremities, PT and DP pulses palpable +2 Psych: mood stable, judgement and insight good Skin: no new rashes or lesions Results Labs 09/24/25 18:37 09/24/25 18:37 Labs: Laboratory Results - last 24 hr 09/24/25 09/25/25 18:37 00:41 MCV 91.9 MCH 30.7 MCHC 33.4 RDW 15.1 Plt Count 250 MPV 11.9 Immature Gran % (Auto) 0.4 Neut % (Auto) 70.3 Lymph % (Auto) 18.7 L Mower % (Auto) 10.0 Eos % (Auto) 0.4 Baso % (Auto) 0.2 Lymph # (Auto) 1.5 Mower # (Auto) 0.8 Eos # (Auto) 0.0 Baso # (Auto) 0.0 Abs Immat Gran (auto) 0.03 Absolute Neuts (auto) 5.7 Absolute Nucleated RBC 0.000 Nucleated RBC % (auto) 0.0 Anion Gap 14 Estim Creat Clear Calc 29.9 Estimated GFR 40 Random Glucose 183 H Calcium 8.6 Magnesium 1.8 Total Bilirubin 0.3 Direct Bilirubin 0.1 AST 28 ALT 9 Alkaline Phosphatase 64 Total Protein 6.3 L Albumin 3.9 Lipase 13 Urine Color Yellow Urine Appearance Clear Urine pH 5.5 Ur Specific [place] >= 1.030 H Urine Protein Negative Urine Glucose (UA) Negative Urine Ketones Trace Urine Blood Negative Urine Nitrite Negative Ur Leukocyte Esterase Negative ECG Prior ECG tracings: not available for review Imaging Radiologist's Impressions: [address] [address] [address] Scan Report Signed with Addenda Patient: Jack Urrutia MR#: [id number] : 1960 Acct:[id number] Age/Sex: 65 / F ADM Date: 09/24/25 Loc: HO.ED CT abd and pelvis Findings: Emphysematous changes without consolidation of the imaged lung bases. Mild periportal edema. Mild/gallbladder wall thickening with pericholecystic fluid redemonstrated. Although nonspecific by CTs is concerning for cholecystitis. The adrenal glands appear unchanged. Spleen remains nonenlarged. Moderate to severe volume loss of the pancreas again noted. New mild free fluid in the abdomen and pelvis nonspecific and may be reactive. Mesenteric and retroperitoneal lymph nodes are nonspecific and likely reactive. No significant change in prominence of the renal pelves. No hydronephrosis. Small bowel dilatation measures up to 4 cm diameter in the left hemiabdomen. This is concerning for high-grade small bowel obstruction with multifocal interloop edema. Transition point noted in the left upper quadrant. Closed loop morphology is considered, given apparent left lower transition point. Severe stool burden present, including the cecum. The appendix is not definitively seen. Anastomosis also demonstrates transition point in the right hemiabdomen (27 of series 5). Uterus is anteverted and deviates to the right. No adnexal soft tissue mass by CT. Mild wall thickening of the mildly distended urinary bladder. No definite free intraperitoneal air by CT. Degenerative disc changes and facet arthropathy are multifocal. Mild thoracic vertebral height losses appear old/chronic. Schmorl's nodes are multifocal. Moderate osteoarthritis of the hips. IMPRESSION: Small bowel dilatation concerning for small bowel obstruction. Assessment and Plan (1) Small bowel obstruction: Status: Acute (2) Paroxysmal atrial fibrillation: Status: Acute (3) Diet-controlled type 2 diabetes mellitus: Status: Acute (4) GERD (gastroesophageal reflux disease): Qualifiers: Esophagitis presence: esophagitis presence not specified Qualified Code(s): K21.9 - Gastro-esophageal reflux disease without esophagitis Status: Acute (5) Overactive bladder: Status: Acute (6) Hogan syndrome: Status: Acute Plan 64 year old female with PMH significant for Hogan syndrome, diet controlled diabetes mellitus, OA B hips, spondylosis of thoracic and upper lumbar spine, overactive bladder, PAF on eliquis, Cardioversions for AFIB, hernia repair with mesh, metastatic carcinoid tumor with resecton, ex lap and enterolysisi for SBO, who presents to the ED BIBA for sudden onset abdominal and back pain. Pt was admitted by General Surgery for SBO and Dr. Sanchez requested consultation for pt's medical management. SBO Management per surgery Pt is agreeable to NG tube PAFIB on eliquis Hold eliquis until decision made on need for surgical intervention or not Resume if permitted by surgeon Telemetry Rate currently controlled Continue Dronedarone once med rec completed Chronic Constipation Mirilax daily, Senna at HS, Fiber once pt no longer NPO Dulcolax suppository prn REBECCA H/H currently stable Daily CBC Hold Iron while pt remains NPO Upgrade bowel regimen with recovery as pt has chronic constipation NIDDM II SSI for NPO status BG levels 180 or higher currently CKD IIIB Baseline renal fx Avoid hypotension Avoid nephrotoxic medications GERD IVpepcid and protonix ordered Overactive bladder Continue oxybutinyn when pt is no longer NPO UA negative for UTI Hogan Syndrome Pt lives alone with support in the community Hospitalist group will continue to follow. Please reach out with any questions or concerns. We appreciate this consultation!
[2025-09-25] MEDS: Dextrose 5 % and Lactated Ring 1,000 ML 125 ML IVCONT (02:57)
--- NOTE | 2025-09-25 03:28 | PC.NURSE ---
Pt A&Ox3, reports 7/10 intermittent ABD pain. Pt medicated per DEC with effectiveness. 14F NG tube placed to left nare, on low intermittent suctioning thick yellow gastric content. Pt tolerated fair.
[2025-09-25 04:12] LABS: Glucose, Whole Blood 189 mg/dL (60-115)
--- NOTE | 2025-09-25 05:35 | P.HPGS_ITS ---
History of Present Illness History of Present Illness Date of Service: 09/25/25 Chief complaint: small bowel obstruction Narrative: Jack Urrutia is a 65 year old female well known to the surgery service with a history of Hogan syndrome, diet controlled diabetes mellitus, PAF, metastatic carcinoid tumor, status post partial resection and previous history of small- bowel obstruction requiring lysis of adhesions returning to the emergency department with complaints of abdominal pain with nausea but no vomiting and constipation for approximately 4-5 days. She reported increased GERD symptoms throughout the week as well. She presented to the emergency department and was noted to have abdominal distention and tenderness. Laboratories revealed a normal WBC. CT abdomen and pelvis revealed dilated loops of small bowel with a transition point in the left lower quadrant suggestive of a small-bowel obstruction. Nasogastric tube was placed in the emergency department. Patient is admitted to the surgical service for further management of this recurrent small bowel obstruction. Review of Systems Constitutional: Constitutional: Denies chills, Denies fever(s) and Denies weight loss ENT: Denies dizziness Cardiovascular: Cardiovascular: Denies chest pain and Denies dyspnea Respiratory: Respiratory: Denies dyspnea Gastrointestinal: Gastrointestinal: Reports as per HPI Genitourinary: Genitourinary: Denies hematuria and Denies dysuria Musculoskeletal: Musculoskeletal: Denies numbness Integumentary/Breasts: Skin/Breast: Denies jaundice Neurologic: Denies dizziness and Denies numbness PMFSH Past Medical History Medical History Dysphagia History of COVID-19 COVID-19 vaccine administered Constipation Afib Overactive bladder Environmental allergies Neuroendocrine neoplasm of gastrointestinal tract Lipid disorder Colon polyp Gastric polyp Anemia Vitamin D deficiency Hyperlipemia Diabetes Arthritis IBS (irritable bowel syndrome) GERD (gastroesophageal reflux disease) Asthma Family History Family History Father Afib Pneumonia Brother Afib Heart disease Brother Heart disease Mother Unknown family medical history Surgical History Surgical History History of incisional hernia repair (05/15/24) Hx of resection of small bowel H/O exploratory laparotomy (09/20/22) History of colonoscopy History of esophagogastroduodenoscopy Social History Social History Household Members: None Housing: Apartment Housing Other:: mental health association [facility] Are you a primary clinical care manager to a significant other at home: No Do you presently have 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) Alcohol intake: never Patient Tobacco Use Status: Never used Tobacco e-Cigarette/Vaping Use: Never Used Second Hand Smoke Exposure: No Advance Directives Date on File: 12/01/21 service: No Current occupational status: disabled Cognitive needs: No Hearing needs: No Vision needs: Yes Travel History Ebola Risk: Travel/Contact With Anyone From Affected Area/s: No Has Patient Experienced Ebola Symptoms: No Meds Allergies Allergy/AdvReac Type Severity Reaction Status Date / Time Chocolate Allergy Mild Rash Verified 09/24/25 18:20 environmental allergies Allergy Mild Itchy Eyes Verified 09/24/25 18:20 erythromycin base AdvReac Intermediate GI UPSET Verified 09/24/25 18:20 (Erythromycin Base) ibuprofen (From Motrin) AdvReac Intermediate Gastrointestinal Verified 09/24/25 18:20 Upset, increases pain Active Medications: Current Medications Bisacodyl (Bisacodyl 10 Mg Supp.Rect) 10 mg VT BEDTIME PRN PRN Reason: Constipation Calcium Carbonate (Calcium Carbonate 750 Mg Tab.Chew) 750 mg PO Q4H PRN PRN Reason: Heartburn Dextrose (Dextrose 50 % 25 Gm/50 Ml Syringe) 25 gm IVPUSH Q15M PRN; Protocol PRN Reason: per Hypoglycemia Standing Ord. Famotidine (Famotidine/Pf 20 Mg/2 Ml Vial) 20 mg IVPUSH DAILY HERBERT Glucose (Glucose Gel 15 Gm Gel..Gram.) 15 gm PO Q15M PRN; Protocol PRN Reason: per Hypoglycemia Standing Ord. Hydromorphone HCl (Hydromorphone Hcl 0.5 Mg/0.5 Ml Syringe) 0.5 mg IVPUSH Q3H PRN; Protocol PRN Reason: Pain, Severe (Pain Scale 7-10) Last Admin: 09/25/25 05:10 Dose: 0.5 mg Acetaminophen (Ofirmev) 1,000 mg in 100 mls @ 400 mls/hr IV Q6H PRN PRN Reason: Pain, Mild (Pain Scale 1-3) Dextrose/Lactated Ringer's (D5lr) 1,000 mls @ 125 mls/hr IVCONT .Q8H [facility] Last Admin: 09/25/25 02:57 Dose: 125 mls/hr Insulin Human Lispro (Insulin Lispro 100 Unit/Ml 3 Ml Vial) 2 - 10 unit SUBCUT Q6H [facility]; Protocol Last Admin: 09/25/25 04:35 Dose: 2 unit Magnesium Hydroxide (Milk Of Magnesia 30 Ml Oral.Susp) 30 ml PO DAILY PRN PRN Reason: Constipation Melatonin (Melatonin 3 Mg Tablet) 6 mg PO BEDTIME PRN PRN Reason: Insomnia Ondansetron HCl (Ondansetron Hcl 4 Mg/2 Ml Vial) 4 mg IVPUSH QID PRN PRN Reason: Nausea Last Admin: 09/25/25 05:10 Dose: 4 mg Oxycodone HCl (Oxycodone Hcl Immed Release 5 Mg Tablet) 5 mg PO Q6H PRN PRN Reason: Pain, Moderate(Pain Scale 4-6) Pantoprazole Sodium (Pantoprazole Sodium 40 Mg/10 Ml Vial) 40 mg IVPUSH DAILY@0630 [facility] Sodium Chloride (0.9 % Sodium Chloride Flush 3 Ml Syringe) 3 ml IVFLUSH QSHIFT [facility] Home Medications ?Medication ?Instructions ?Recorded ?Confirmed ?Last Taken ?Type lactulose 10 gram/15 mL oral 15 ml PO BEDTIME PRN Cons tipation 05/15/24 09/03/25 Unknown History solution cholecalciferol (vitamin D3) 25 25 mcg PO DAILY 09/03/25 06/24/25 History mcg (1,000 unit) tablet docusate sodium 100 mg capsule 100 mg PO BID PRN const ipation 03/27/25 09/03/25 Unknown History (Colace) octreotide,microspheres 30 mg 30 mg IM Q4W 03/27/2505/28/25 History intramuscular susp, extended release melatonin 5 mg capsule 5 mg PO BEDTIME PRN To sleep 06/25/25 09/03/25 Unknown History tramadol 50 mg tablet 50 mg PO DAILY 08/12/2503/23 Unknown History Physical Exam Vital Signs: Vital Signs: Last Vital Signs Temp 97.7 F 09/25/25 04:11 Pulse 70 09/25/25 04:11 Resp 16 09/25/25 04:11 BP 103/53 L 09/25/25 04:11 Pulse Ox 98 09/25/25 04:11 O2 Del Method Room Air 09/25/25 04:11 BMI result Body Mass Index 24.3 Const: General: comfortable, no acute distress and alert Orientation/consciousness: patient oriented x3 Limitations: ambulation with cane Eyes: Other: Sclera nonicteric Resp: Effort & Inspection: normal respiratory effort, no audible wheezes, no cough and no respiratory distress GI: Inspection: Yes distended Palpation (GI): Soft to palpation, nontender and no guarding Percussion: Yes tympanic to percussion Auscultation: normal bowel sounds Rectal Exam - Female: deferred Skin: General skin exam: no rashes or lesions noted and no jaundice Neuro: General: patient oriented x3 and moves all extremities Extrem: General: Yes no pedal edema Results Results Labs: Short CBC 09/24/25 Range/Units 18:37 WBC 8.1 (4.8-10.8) X10*3/uL Hgb 11.4 L (12.0-16.0) g/dl Hct 34.1 L (37.0-47.0) % Plt Count 250 (160-400) X10*3/uL BMP 09/24/25 18:37 Sodium 141 Potassium 4.5 Chloride 106 Carbon Dioxide 26 BUN 25 H Creatinine 1.33 Calcium 8.6 Liver Function 09/24/25 Range/Units 18:37 Total Bilirubin 0.3 (0.0-1.0) mg/dL Direct Bilirubin 0.1 (0.0-0.5) mg/dL AST 28 (5-31) U/L ALT 9 (0-31) U/L Alkaline Phosphatase 64 (39-117) U/L Albumin 3.9 (3.5-5.0) g/dL Urine 09/25/25 Range/Units 00:41 Urine Color Yellow Urine Appearance Clear Urine pH 5.5 (5.0-9.0) Ur Specific [place] >= 1.030 H (1.005-1.025) Urine Protein Negative (Neg-Trace) mg/dL Urine Glucose (UA) Negative (Negative) mg/dL Chest x-ray: image reviewed Abdomen CT scan report/results: image reviewed CT scan - pelvis: image reviewed Assessment and Plan (1) Small bowel obstruction: Status: Acute (2) Paroxysmal atrial fibrillation: Status: Acute Plan Patient returning with a recurrent episode of small-bowel obstruction associated with abdominal pain, nausea, and obstipation. Abdominal exam is consistent with small-bowel obstruction with distention and tympany to percussion. No peritoneal signs are identified. CT confirms dilated loops of small bowel similar to previous episodes of small-bowel obstruction. NG tube has been placed to decompress proximal small bowel and patient placed on bowel rest. If her symptoms do not improve she may require exploratory laparotomy, lysis of adhesions, possible bowel resection. Patient expressed understanding and agreed with an attempt at nonoperative management. Her PAF has been a problem in the past when she is off her medications and she reports difficulty with swallowing of her meds without the NG tube. The cardiac Meds can not be crushed and placed to the NG tube unfortunately. Hospitalist consultation appreciated for further management of cardiac issues and diabetes. Quality Stroke Does the patient have a stroke diagnosis?: No VTE Prior VTE?: No VTE Risk Level:: Surgical - moderate VTE Device Contraindication: N/A - Device Ordered VTE Drug Contraindication: N/A - Med Ordered Procedures Date of Service Date of Service: 09/25/25
--- NOTE | 2025-09-25 06:49 | HO.NURTONUR ---
Pt came in from home, reporting right side ABD pain, no bowel movement in approximately 4 days now feeling nausea and decrease PO. hx of SBO and Hogan Syndrome Pt lives alone with support in the community. Pt was admitted by General Surgery for SBO and Dr. Sanchez. 14F NG tube to left nare draining yellow gastric content. Pt A&Ox3, 20G to Left AC with D5 in LR @ 125 mL/hr. Pt ambulates with cane.
--- NOTE | 2025-09-25 07:40 | PC.NURSE ---
Pt resting quiety. MADELINE. NG tube to intermittent low suction with aprox 200 bile in vaccutainer. Only complaint is sore throat. Axox3.
[2025-09-25 09:42] LABS: Glucose, Whole Blood 163 mg/dL (60-115)
--- NOTE | 2025-09-25 11:02 | PHA.MEDREC ---
Pharmacy Consult ? Medication Reconciliation Pharmacy has completed the medication reconciliation. Spoke to patient to confirm medication list. Patient verified she is still taking eliquis 5 mg bid and multaq 400 mg bid. Her next dose of octreotide 30 mg injection is due on 10/01/25. She takes tramadol 50 mg once a day prn pain. Last dose of medications was yesterday morning 09/24/25.
--- NOTE | 2025-09-25 11:23 | MHC.CM.PN ---
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 NEW [facility] VS SHUTTLE / LYFT TO TRANSPORT
[2025-09-25 11:53] LABS: Glucose, Whole Blood 166 mg/dL (60-115)
--- NOTE | 2025-09-25 12:14 | PC.NURSE ---
Patient has left nare, NG tube on low intermittent suction with minimal clear output throughout shift. Provider Daniel messaged via [employer] for spray for throat pain, also informed provider of need for sliding scale insulin with IV fluid provider changed fluid order. Also reached out to provider and asked about NG tube placement confirmation, air auscultated in abdomen for placement checked with syringe on arrival from ED.
[2025-09-25] MEDS: Lactated Ringers 1,000 ML 100 ML IVCONT ×2 (13:40→23:51)
[2025-09-25] MEDS: 0.9 % Sodium Chloride Flush 3 ML SYRINGE IVFLUSH (16:04)
[2025-09-25 17:21] LABS: Glucose, Whole Blood 99 mg/dL (60-115)
--- NOTE | 2025-09-25 18:40 | PC.NURSE ---
Neeraj has NG tube on low intermittent suction with minimal clear output. Provider Daniel messaged via [employer] for spray for throat pain, also informed provider of need for sliding scale insulin with IV fluids, provider changed fluid order, also reached out to provider and asked about NG tube confirmation with i
[2025-09-25 20:56] LABS: Glucose, Whole Blood 99 mg/dL (60-115)
[2025-09-25] MEDS: oxyCODONE HCl Immed Release 5 MG TABLET PO (21:19)
[2025-09-26] VITALS (7 sets, daily range): BP systolic 110–141; BP diastolic 55–69; PULSE 67–96; RESP 12–18; TEMP 36.3–36.8; O2SAT 94–99
--- NOTE | 2025-09-26 | ECG_ITS ---
Test Reason : chest pain Blood Pressure : */* mmHG Vent. Rate : 93 BPM Atrial Rate : 93 BPM P-R Int : 190 ms QRS Dur : 56 ms QT Int : 350 ms P-R-T Axes : 107 0 46 degrees QTcB Int : 435 ms Normal sinus rhythm Low voltage QRS Borderline ECG When compared with ECG of 26-Sep-2025 02:28, No significant changes seen Referred By: Di Hudson Electronically Signed By: David Gomez
--- NOTE | 2025-09-26 02:28 | ECG_ITS ---
Test Reason : cp Blood Pressure : */* mmHG Vent. Rate : 84 BPM Atrial Rate : 84 BPM P-R Int : * ms QRS Dur : 48 ms QT Int : 330 ms P-R-T Axes : 101 4 41 degrees QTcB Int : 389 ms Poor data quality Sinus rhythm Abnormal ECG When compared with ECG of 12-Sep-2025 11:08, Poor data quality in current ECG precludes serial comparison Referred By: Parish Sanchez Electronically Signed By: David Gomez
[2025-09-26 02:53] LABS: MANUAL DIFF FLAG NO
[2025-09-26 02:54] LABS: Hematocrit 34.9 % (37.0-47.0); Hemoglobin 11.4 g/dl (12.0-16.0); Imm Gran Abs Auto 0.02 X10*3/uL (0.00-0.03); Imm Gran Pct Auto 0.2 % (0.0-0.4); Lymphocytes Absolute Auto 2.0 X10*3/uL (1.2-4.9); Mean Corpuscular HGB Conc 32.7 g/dl (31.0-35.0); Mean Corpuscular Hemoglobin 30.6 pg (27.0-33.0); Mean Corpuscular Volume 93.8 fL (80.0-98.0); NRBC Abs Auto 0.000 X10*3/uL (0.0-0.012); NRBC Pct Auto 0.0 /100WBC (0.0-0.2); Platelet Count 227 X10*3/uL (160-400); Red Blood Count 3.72 X10*6/uL (4.20-5.50); White Blood Count 8.7 X10*3/uL (4.8-10.8)
[2025-09-26 03:07] LABS: Anion Gap 15 (12-20); Blood Urea Nitrogen 11 mg/dL (9-16); Calcium 8.3 mg/dL (8.4-10.2); Carbon Dioxide 26 mmol/L (22-29); Chloride 107 mmol/L (96-108); Creatinine Clr Calc Pharmacy 47.8; Estimated Glomerular Filt Rate > 60; Potassium 4.3 mmol/L (3.3-5.1); Sodium 144 mmol/L (135-145)
[2025-09-26 03:15] LABS: Troponin-I High Sensitivity 6.6 ng/L (<3.5-17.0)
--- NOTE | 2025-09-26 03:35 | PM.EVENT ---
Event Note Date of Service: 09/26/25 Event Note: Nursing reported patient woke up suddenly with complaints of chest pressure and she states she has had these symptoms before and it was possible that was more anxiety than actual chest pressure or pain. EKG was obtained and had no evidence of ischemic changes. Troponin 6.6. Patient was given 1 dose of morphine 1 mg IV and had good effect. Patient will continue to be monitored closely. Time Spent With Patient Time: Total time managing care of this patient today ____ minutes.
[2025-09-26 03:46] LABS: Glucose, Whole Blood 103 mg/dL (60-115)
[2025-09-26] MEDS: Lactated Ringers 1,000 ML 100 ML IVCONT ×2 (08:16→18:25)
--- NOTE | 2025-09-26 09:15 | PM.PNGS ---
Subjective Subjective Date of Service: 09/26/25 Interval history: Feels well this morning Denies abdominal pain Does state that she had some pain earlier today Denies recall of flatus or BM NG tube output in place Physical Exam Vital Signs: Vital Signs: Last Vital Signs Temp 97.4 F 09/26/25 07:15 Pulse 69 09/26/25 07:15 Resp 18 09/26/25 07:15 BP 127/67 09/26/25 07:15 Pulse Ox 94 09/26/25 07:15 O2 Del Method Room Air 09/26/25 07:15 BMI result Body Mass Index 25.3 Const: Other: NG tube in place General: comfortable and no acute distress Resp: Effort & Inspection: normal respiratory effort Cardio: Rate: regular rate GI: Other: NG-tube in place Inspection: No distended Palpation (GI): Soft to palpation, not firm and nontender Objective Data Active Medications Albuterol Sulfate (Albuterol Sulfate 90 Mcg 8 Gm Inhaler) 2 puff INHALE RQ4H PRN PRN Reason: Shortness Of Breath Or Wheezing Bisacodyl (Bisacodyl 10 Mg Supp.Rect) 10 mg LA BEDTIME PRN PRN Reason: Constipation Calcium Carbonate (Calcium Carbonate 750 Mg Tab.Chew) 750 mg PO Q4H PRN PRN Reason: Heartburn Dextrose (Dextrose 50 % 25 Gm/50 Ml Syringe) 25 gm IVPUSH Q15M PRN; Protocol PRN Reason: per Hypoglycemia Standing Ord. Dronedarone (Dronedarone Hcl 400 Mg Tablet) 400 mg PO BID [facility] Last Admin: 09/25/25 21:13 Dose: Not Given Documented By: PATSY Non-Admin Reason: Patient Refused Famotidine (Famotidine/Pf 20 Mg/2 Ml Vial) 20 mg IVPUSH DAILY [facility] Last Admin: 09/26/25 08:17 Dose: 20 mg Documented By: WES Glucose (Glucose Gel 15 Gm Gel..Gram.) 15 gm PO Q15M PRN; Protocol PRN Reason: per Hypoglycemia Standing Ord. Hydromorphone HCl (Hydromorphone Hcl 0.5 Mg/0.5 Ml Syringe) 0.5 mg IVPUSH Q3H PRN; Protocol PRN Reason: Pain, Severe (Pain Scale 7-10) Last Admin: 09/26/25 08:17 Dose: 0.5 mg Documented By: WES Acetaminophen (Ofirmev) 1,000 mg in 100 mls @ 400 mls/hr IV Q6H PRN PRN Reason: Pain, Mild (Pain Scale 1-3) Lactated Ringer's (Lr) 1,000 mls @ 100 mls/hr IVCONT .Q10H [facility] Last Admin: 09/26/25 08:16 Dose: 100 mls/hr Documented By: WES Insulin Human Lispro (Insulin Lispro 100 Unit/Ml 3 Ml Vial) 2 - 10 unit SUBCUT Q6H [facility]; Protocol Last Admin: 09/26/25 03:58 Dose: Not Given Documented By: PATSY Non-Admin Reason: No Insulin Coverage Magnesium Hydroxide (Milk Of Magnesia 30 Ml Oral.Susp) 30 ml PO DAILY PRN PRN Reason: Constipation Melatonin (Melatonin 3 Mg Tablet) 6 mg PO BEDTIME PRN PRN Reason: Insomnia Metoprolol Tartrate (Metoprolol Tartrate 50 Mg Tablet) 50 mg PO BID [facility]; Protocol Last Admin: 09/25/25 21:10 Dose: 50 mg Documented By: PATSY Ondansetron HCl (Ondansetron Hcl 4 Mg/2 Ml Vial) 4 mg IVPUSH QID PRN PRN Reason: Nausea Last Admin: 09/26/25 02:45 Dose: 4 mg Documented By: PATSY Oxycodone HCl (Oxycodone Hcl Immed Release 5 Mg Tablet) 5 mg PO Q6H PRN PRN Reason: Pain, Moderate(Pain Scale 4-6) Last Admin: 09/25/25 21:19 Dose: 5 mg Documented By: PATSY Pantoprazole Sodium (Pantoprazole Sodium 40 Mg/10 Ml Vial) 40 mg IVPUSH DAILY@0630 [facility] Last Admin: 09/26/25 05:44 Dose: 40 mg Documented By: PATSY Sodium Chloride (0.9 % Sodium Chloride Flush 3 Ml Syringe) 3 ml IVFLUSH QSHIFT [facility] Last Admin: 09/26/25 08:18 Dose: Not Given Documented By: WES Non-Admin Reason: IV Running Labs 09/26/25 02:48 09/26/25 02:48 Labs: Laboratory Results - last 24 hr 09/25/25 09/25/25 09/25/25 09:38 11:32 17:17 MCV MCH MCHC RDW Plt Count MPV Immature Gran % (Auto) Neut % (Auto) Lymph % (Auto) [place] % (Auto) Eos % (Auto) Baso % (Auto) Lymph # (Auto) [place] # (Auto) Eos # (Auto) Baso # (Auto) Abs Immat Gran (auto) Absolute Neuts (auto) Absolute Nucleated RBC Nucleated RBC % (auto) Anion Gap Estim Creat Clear Calc Estimated GFR POC Glucose 163 H 166 H 99 Random Glucose Calcium Troponin I High Sens 09/25/25 09/26/25 09/26/25 20:27 02:48 03:42 MCV 93.8 MCH 30.6 MCHC 32.7 RDW 15.6 Plt Count 227 MPV 11.2 Immature Gran % (Auto) 0.2 Neut % (Auto) 64.1 Lymph % (Auto) 22.4 [place] % (Auto) 13.0 H Eos % (Auto) 0.1 Baso % (Auto) 0.2 Lymph # (Auto) 2.0 [place] # (Auto) 1.1 Eos # (Auto) 0.0 Baso # (Auto) 0.0 Abs Immat Gran (auto) 0.02 Absolute Neuts (auto) 5.6 Absolute Nucleated RBC 0.000 Nucleated RBC % (auto) 0.0 Anion Gap 15 Estim Creat Clear Calc 47.8 Estimated GFR > 60 POC Glucose 99 103 Random Glucose 113 Calcium 8.3 L Troponin I High Sens 6.6 D Procedures Date of Service Date of Service: 09/26/25 Progress Note: A&P Assessment and plan (1) Small bowel obstruction: Status: Acute Assessment and Plan: Abdomen is soft and benign Clinically much improved NG tube output scanty She feels better overall Labs okay We will monitor NG tube output and await for has a return of GI function We will continue to do serial exams She looks well Time Spent With Patient Time: Total time managing care of this patient today ____ minutes. Quality Stroke Does the patient have a stroke diagnosis?: No VTE Prior VTE?: No VTE Risk Level:: Surgical - moderate VTE Device Contraindication: N/A - Device Ordered VTE Drug Contraindication: N/A - Med Ordered
[2025-09-26 09:56] LABS: Glucose, Whole Blood 92 mg/dL (60-115)
[2025-09-26] MEDS: Throat Lozenge, Medicated LOZENGE 1 LOZENGE MUCOUS MEM ×2 (13:00→21:29)
--- NOTE | 2025-09-26 14:56 | PM.EVENT ---
Event Note Date of Service: 09/26/25 Event Note: Seen on afternoon rounds She continues to feel well NG tube output minimal Soft and benign She says she may have passed a little bit of flatus We will keep NG tube in tonight and re-evaluate tomorrow for possible removal Doing well clinically Time Spent With Patient Time: Total time managing care of this patient today ____ minutes.
--- NOTE | 2025-09-26 15:54 | MHC.CM.PN ---
PER MD NOTE, PT NOT READY TO DC, PLAN TO MONITOR NGT OUTPUT AND WAIT FOR RETURN OF GI FUNCTION.
[2025-09-26 16:18] LABS: Glucose, Whole Blood 82 mg/dL (60-115)
[2025-09-26 20:42] LABS: Glucose, Whole Blood 83 mg/dL (60-115)
[2025-09-26] MEDS: oxyCODONE HCl Immed Release 5 MG TABLET PO (21:23)
[2025-09-27 03:07] VITALS: BP 101/53; PULSE 60; RESP 15; TEMP 36.4; O2SAT 96
[2025-09-27] MEDS: Lactated Ringers 1,000 ML 100 ML IVCONT ×2 (03:52→15:33)
[2025-09-27 03:57] LABS: Glucose, Whole Blood 98 mg/dL (60-115)
[2025-09-27 08:00] VITALS: BP 117/59; PULSE 66; RESP 16; TEMP 36.3; O2SAT 95
[2025-09-27] MEDS: 0.9 % Sodium Chloride Flush 3 ML SYRINGE IVFLUSH ×2 (08:28→16:07)
--- NOTE | 2025-09-27 09:42 | PM.PNGS ---
Subjective Subjective Date of Service: 09/27/25 Interval history: Feels well Denies significant pain NG tube output 100 overnight She does not recall flatus although states that she may have a little bit of BMs Physical Exam Vital Signs: Vital Signs: Last Vital Signs Temp 97.4 F 09/27/25 08:00 Pulse 66 09/27/25 08:00 Resp 16 09/27/25 08:00 BP 117/59 L 09/27/25 08:00 Pulse Ox 95 09/27/25 08:00 O2 Del Method Room Air 09/27/25 08:00 BMI result Body Mass Index 25.3 Const: Other: NG tube in place General: comfortable and no acute distress Resp: Effort & Inspection: normal respiratory effort Cardio: Rate: regular rate GI: Other: NG tube in place Palpation (GI): Soft to palpation, not firm, nontender and no guarding Objective Data Active Medications Albuterol Sulfate (Albuterol Sulfate 90 Mcg 8 Gm Inhaler) 2 puff INHALE RQ4H PRN PRN Reason: Shortness Of Breath Or Wheezing Benzocaine (Throat Lozenge, Medicated Lozenge) 1 lozenge MUCOUS MEM Q2H PRN PRN Reason: Sore Throat Last Admin: 09/26/25 21:29 Dose: 1 lozenge Documented By: CASTILFlori Bisacodyl (Bisacodyl 10 Mg Supp.Rect) 10 mg LA BEDTIME PRN PRN Reason: Constipation Calcium Carbonate (Calcium Carbonate 750 Mg Tab.Chew) 750 mg PO Q4H PRN PRN Reason: Heartburn Dextrose (Dextrose 50 % 25 Gm/50 Ml Syringe) 25 gm IVPUSH Q15M PRN; Protocol PRN Reason: per Hypoglycemia Standing Ord. Dronedarone (Dronedarone Hcl 400 Mg Tablet) 400 mg PO BID [facility] Last Admin: 09/27/25 08:48 Dose: Not Given Documented By: MILENA Non-Admin Reason: unable to swallow pill d.t NGT Famotidine (Famotidine/Pf 20 Mg/2 Ml Vial) 20 mg IVPUSH DAILY [facility] Last Admin: 09/27/25 08:28 Dose: 20 mg Documented By: MILENA Glucose (Glucose Gel 15 Gm Gel..Gram.) 15 gm PO Q15M PRN; Protocol PRN Reason: per Hypoglycemia Standing Ord. Hydromorphone HCl (Hydromorphone Hcl 0.5 Mg/0.5 Ml Syringe) 0.5 mg IVPUSH Q3H PRN; Protocol PRN Reason: Pain, Severe (Pain Scale 7-10) Last Admin: 09/26/25 16:56 Dose: 0.5 mg Documented By: WES Acetaminophen (Ofirmev) 1,000 mg in 100 mls @ 400 mls/hr IV Q6H PRN PRN Reason: Pain, Mild (Pain Scale 1-3) Lactated Ringer's (Lr) 1,000 mls @ 100 mls/hr IVCONT .Q10H [facility] Last Admin: 09/27/25 03:52 Dose: 100 mls/hr Documented By: GRIFFIN Insulin Human Lispro (Insulin Lispro 100 Unit/Ml 3 Ml Vial) 2 - 10 unit SUBCUT Q6H [facility]; Protocol Last Admin: 09/27/25 03:56 Dose: Not Given Documented By: GRIFFIN Non-Admin Reason: No Insulin Coverage Comments: POC 98 Magnesium Hydroxide (Milk Of Magnesia 30 Ml Oral.Susp) 30 ml PO DAILY PRN PRN Reason: Constipation Melatonin (Melatonin 3 Mg Tablet) 6 mg PO BEDTIME PRN PRN Reason: Insomnia Metoprolol Tartrate (Metoprolol Tartrate 50 Mg Tablet) 50 mg PO BID [facility]; Protocol Last Admin: 09/27/25 08:27 Dose: 50 mg Documented By: MILENA Ondansetron HCl (Ondansetron Hcl 4 Mg/2 Ml Vial) 4 mg IVPUSH QID PRN PRN Reason: Nausea Last Admin: 09/27/25 00:32 Dose: 4 mg Documented By: GRIFFIN Oxycodone HCl (Oxycodone Hcl Immed Release 5 Mg Tablet) 5 mg PO Q6H PRN PRN Reason: Pain, Moderate(Pain Scale 4-6) Last Admin: 09/26/25 21:23 Dose: 5 mg Documented By: GRIFFIN Pantoprazole Sodium (Pantoprazole Sodium 40 Mg/10 Ml Vial) 40 mg IVPUSH DAILY@0630 [facility] Last Admin: 09/27/25 05:24 Dose: 40 mg Documented By: GRIFFIN Sodium Chloride (0.9 % Sodium Chloride Flush 3 Ml Syringe) 3 ml IVFLUSH QSHIFT [facility] Last Admin: 09/27/25 08:28 Dose: 3 ml Documented By: MILENA Labs 09/26/25 02:48 09/26/25 02:48 Labs: Laboratory Results - last 24 hr 09/26/25 09/26/25 09/26/25 09:52 16:14 20:38 POC Glucose 92 82 83 09/27/25 03:10 POC Glucose 98 Procedures Date of Service Date of Service: 09/27/25 Progress Note: A&P Assessment and plan (1) Small bowel obstruction: Status: Acute Assessment and Plan: She is clinically much improved Abdomen is soft and benign NG tube output not a lot She however denies flatus We will NG tube for another day Possibly DC NG tube tomorrow Okay to have ice chips Time Spent With Patient Time: Total time managing care of this patient today ____ minutes. Quality Stroke Does the patient have a stroke diagnosis?: No VTE Prior VTE?: No VTE Risk Level:: Surgical - moderate VTE Device Contraindication: N/A - Device Ordered VTE Drug Contraindication: N/A - Med Ordered
[2025-09-27 10:14] LABS: Glucose, Whole Blood 83 mg/dL (60-115)
[2025-09-27 14:00] VITALS: BP 119/57; PULSE 56; RESP 17; TEMP 36.2; O2SAT 95
[2025-09-27 16:56] LABS: Glucose, Whole Blood 87 mg/dL (60-115)
[2025-09-27 19:52] VITALS: BP 132/60; PULSE 66; RESP 16; TEMP 36.2; O2SAT 99
[2025-09-27 21:22] LABS: Glucose, Whole Blood 80 mg/dL (60-115)
--- NOTE | 2025-09-27 21:55 | PC.NURSE ---
Patient is NPO. Ok to split Dronedarone in small pieces and give with out food per Chris from Pharmacy.
[2025-09-27 23:26] VITALS: BP 121/58; PULSE 51; RESP 14; TEMP 36.1; O2SAT 94
[2025-09-28] VITALS (8 sets, daily range): BP systolic 106–128; BP diastolic 54–70; PULSE 54–75; RESP 14–18; TEMP 36.1–36.7; O2SAT 93–99
--- NOTE | 2025-09-28 01:44 | ECG_ITS ---
Test Reason : cp Blood Pressure : */* mmHG Vent. Rate : 63 BPM Atrial Rate : 63 BPM P-R Int : 164 ms QRS Dur : 64 ms QT Int : 396 ms P-R-T Axes : 76 7 35 degrees QTcB Int : 405 ms Normal sinus rhythm Normal ECG When compared with ECG of 26-Sep-2025 03:01, Nonspecific T wave abnormality no longer evident in Lateral leads Referred By: Parish Sanchez Electronically Signed By: BREONNA CAMPBELL
[2025-09-28] MEDS: Lactated Ringers 1,000 ML 100 ML IVCONT ×3 (02:00→22:26)
[2025-09-28 03:29] LABS: Glucose, Whole Blood 79 mg/dL (60-115)
--- NOTE | 2025-09-28 04:43 | PC.NURSE ---
At approximately 0130 cardiac bus driver/monitor called down to inform this RN that the patients heart rhythm showed about 10 seconds of proximal atrial tachycardia. Her heart rate went from the 50's and jumped to as high as 133. This RN notified [facility] and orders were received to obtain an ECG. Vitals signs and ECG were obtained. Patient remained asymptomatic.
--- NOTE | 2025-09-28 05:52 | PC.NURSE ---
Patient has had minimal output from the NGT throughout the night (less than 100mL's).Patient has been passing flatulus and has +BS. No complaints of abdominal pain or discomfort.
[2025-09-28 08:01] LABS: Glucose, Whole Blood 78 mg/dL (60-115)
[2025-09-28] MEDS: 0.9 % Sodium Chloride Flush 3 ML SYRINGE IVFLUSH ×2 (08:26→22:26)
--- NOTE | 2025-09-28 09:26 | PC.NURSE ---
Addendum entered by Melissa Avila RN 09/28/25 13:08: MD Anne at bedside removed NGT, pt tolerated well. Per ok to have sips of clear liquid. Original Note: Per MD Anne hold NGT suction for four hours starting now. Pt aware of plan.
--- NOTE | 2025-09-28 09:27 | PM.PNGS ---
Subjective Subjective Date of Service: 09/28/25 Interval history: Says she had a good night Passing flatus Denies significant pain No events reported by nurse NG tube output minimal, patient taking ice chips Physical Exam Vital Signs: Vital Signs: Last Vital Signs Temp 97.1 F 09/28/25 07:53 Pulse 66 09/28/25 07:53 Resp 16 09/28/25 07:53 BP 124/70 09/28/25 07:53 Pulse Ox 98 09/28/25 07:53 O2 Del Method Room Air 09/28/25 07:53 BMI result Body Mass Index 25.3 Const: General: comfortable and no acute distress Resp: Effort & Inspection: normal respiratory effort Cardio: Rate: regular rate GI: Palpation (GI): Soft to palpation, not firm, nontender and no guarding Objective Data Active Medications Albuterol Sulfate (Albuterol Sulfate 90 Mcg 8 Gm Inhaler) 2 puff INHALE RQ4H PRN PRN Reason: Shortness Of Breath Or Wheezing Benzocaine (Throat Lozenge, Medicated Lozenge) 1 lozenge MUCOUS MEM Q2H PRN PRN Reason: Sore Throat Last Admin: 09/26/25 21:29 Dose: 1 lozenge Documented By: CASTILFlori Bisacodyl (Bisacodyl 10 Mg Supp.Rect) 10 mg PA BEDTIME PRN PRN Reason: Constipation Calcium Carbonate (Calcium Carbonate 750 Mg Tab.Chew) 750 mg PO Q4H PRN PRN Reason: Heartburn Dextrose (Dextrose 50 % 25 Gm/50 Ml Syringe) 25 gm IVPUSH Q15M PRN; Protocol PRN Reason: per Hypoglycemia Standing Ord. Dronedarone (Dronedarone Hcl 400 Mg Tablet) 400 mg PO BID [facility] Last Admin: 09/27/25 21:50 Dose: 400 mg Documented By: FLEX Famotidine (Famotidine/Pf 20 Mg/2 Ml Vial) 20 mg IVPUSH DAILY [facility] Last Admin: 09/28/25 08:26 Dose: 20 mg Documented By: MILENA Glucose (Glucose Gel 15 Gm Gel..Gram.) 15 gm PO Q15M PRN; Protocol PRN Reason: per Hypoglycemia Standing Ord. Hydromorphone HCl (Hydromorphone Hcl 0.5 Mg/0.5 Ml Syringe) 0.5 mg IVPUSH Q3H PRN; Protocol PRN Reason: Pain, Severe (Pain Scale 7-10) Last Admin: 09/26/25 16:56 Dose: 0.5 mg Documented By: WES Lactated Ringer's (Lr) 1,000 mls @ 100 mls/hr IVCONT .Q10H [facility] Last Admin: 09/28/25 02:00 Dose: 100 mls/hr Documented By: TANYA Insulin Human Lispro (Insulin Lispro 100 Unit/Ml 3 Ml Vial) 2 - 10 unit SUBCUT Q6H [facility]; Protocol Last Admin: 09/28/25 03:39 Dose: Not Given Documented By: TANYA Non-Admin Reason: No Insulin Coverage Magnesium Hydroxide (Milk Of Magnesia 30 Ml Oral.Susp) 30 ml PO DAILY PRN PRN Reason: Constipation Melatonin (Melatonin 3 Mg Tablet) 6 mg PO BEDTIME PRN PRN Reason: Insomnia Metoprolol Tartrate (Metoprolol Tartrate 50 Mg Tablet) 50 mg PO BID [facility]; Protocol Last Admin: 09/27/25 21:50 Dose: 50 mg Documented By: FLEX Ondansetron HCl (Ondansetron Hcl 4 Mg/2 Ml Vial) 4 mg IVPUSH QID PRN PRN Reason: Nausea Last Admin: 09/28/25 08:26 Dose: 4 mg Documented By: MILENA Oxycodone HCl (Oxycodone Hcl Immed Release 5 Mg Tablet) 5 mg PO Q6H PRN PRN Reason: Pain, Moderate(Pain Scale 4-6) Last Admin: 09/26/25 21:23 Dose: 5 mg Documented By: CASTMAUREEN Sodium Chloride (0.9 % Sodium Chloride Flush 3 Ml Syringe) [facility] Last Admin: 09/28/25 08:26 Dose: 3 ml Documented By: MILENA Labs 09/26/25 02:48 09/26/25 02:48 Labs: Laboratory Results - last 24 hr 09/27/25 09/27/25 09/27/25 10:09 16:53 21:18 POC Glucose 83 87 80 09/28/25 09/28/25 03:25 07:56 POC Glucose 79 78 Procedures Date of Service Date of Service: 09/28/25 Progress Note: A&P Assessment and plan (1) Small bowel obstruction: Status: Acute Assessment and Plan: Clinically much improved Passing flatus Abdomen is soft and benign Clamp NG tube and release after 4 hours Possibly DC NG tube later on today Out of bed Looks well overall Time Spent With Patient Time: Total time managing care of this patient today ____ minutes. Quality Stroke Does the patient have a stroke diagnosis?: No VTE Prior VTE?: No VTE Risk Level:: Surgical - moderate VTE Device Contraindication: N/A - Device Ordered VTE Drug Contraindication: N/A - Med Ordered
[2025-09-28 11:29] LABS: Glucose, Whole Blood 79 mg/dL (60-115)
[2025-09-28 11:38] LABS: Anion Gap 20 (12-20); Blood Urea Nitrogen 7 mg/dL (9-16); Calcium 7.9 mg/dL (8.4-10.2); Carbon Dioxide 21 mmol/L (22-29); Chloride 106 mmol/L (96-108); Creatinine Clr Calc Pharmacy 58.9; Estimated Glomerular Filt Rate > 60; Potassium 4.5 mmol/L (3.3-5.1); Sodium 142 mmol/L (135-145)
--- NOTE | 2025-09-28 13:42 | PM.EVENT ---
Event Note Date of Service: 09/28/25 Event Note: Seen on afternoon rounds Tolerated clamping of NG-tube Denies any acute nausea or abdominal pain NG-tube released and placed on suction - no significant residual stomach contents I therefore removed the NG tube Abdomen remained soft and benign Okay to have clear liquids for now Time Spent With Patient Time: Total time managing care of this patient today ____ minutes.
[2025-09-28 15:09] LABS: Magnesium 1.5 mg/dL (1.6-2.6)
[2025-09-28 16:05] LABS: Glucose, Whole Blood 73 mg/dL (60-115)
--- NOTE | 2025-09-28 16:52 | HO.PM.IMPN ---
Subjective Subjective Date of Service: 09/28/25 Interval History: No complaints or issues today. The patient is lying comfortably in bed. VERA drain removed today with Currently on clear liquid diet Review of Systems Review of Systems: Yes all other systems are reviewed and are negative Physical Exam Exam: Exam: General: A&O x3, oriented to time place person and situation, comfortable, no pain Cardiac: S1, S2 auscultated with no S3/4, no MRG. Well perfused. Respiratory: Normal breath sounds auscultated throughout all lung zones, without wheezing, rales. Normal rate. GI/ : No abdominal pain on palpation, no masses or distentions. MSK: Normal ambulation without pain at bony prominences or musculature Neurological: Normal neurological examination on overview, without obvious CN II-XII abnormalities. Vital Signs: Vital Signs: Last Vital Signs Temp 97.9 F 09/28/25 15:14 Pulse 55 09/28/25 15:14 Resp 18 09/28/25 15:14 BP 109/59 L 09/28/25 15:14 Pulse Ox 96 09/28/25 15:14 O2 Del Method Room Air 09/28/25 15:14 BMI result Body Mass Index 25.3 Objective Data Active Medications Albuterol Sulfate (Albuterol Sulfate 90 Mcg 8 Gm Inhaler) 2 puff INHALE RQ4H PRN PRN Reason: Shortness Of Breath Or Wheezing Benzocaine (Throat Lozenge, Medicated Lozenge) 1 lozenge MUCOUS MEM Q2H PRN PRN Reason: Sore Throat Last Admin: 09/26/25 21:29 Dose: 1 lozenge Documented By: GRIFFIN Bisacodyl (Bisacodyl 10 Mg Supp.Rect) 10 mg OR BEDTIME PRN PRN Reason: Constipation Calcium Carbonate (Calcium Carbonate 750 Mg Tab.Chew) 750 mg PO Q4H PRN PRN Reason: Heartburn Dextrose (Dextrose 50 % 25 Gm/50 Ml Syringe) 25 gm IVPUSH Q15M PRN; Protocol PRN Reason: per Hypoglycemia Standing Ord. Dronedarone (Dronedarone Hcl 400 Mg Tablet) 400 mg PO BID [facility] Last Admin: 09/28/25 09:32 Dose: Not Given Documented By: MILENA Non-Admin Reason: Patient Refused Famotidine (Famotidine/Pf 20 Mg/2 Ml Vial) 20 mg IVPUSH DAILY [facility] Last Admin: 09/28/25 08:26 Dose: 20 mg Documented By: MILENA Glucose (Glucose Gel 15 Gm Gel..Gram.) 15 gm PO Q15M PRN; Protocol PRN Reason: per Hypoglycemia Standing Ord. Hydromorphone HCl (Hydromorphone Hcl 0.5 Mg/0.5 Ml Syringe) 0.5 mg IVPUSH Q3H PRN; Protocol PRN Reason: Pain, Severe (Pain Scale 7-10) Last Admin: 09/26/25 16:56 Dose: 0.5 mg Documented By: WES Lactated Ringer's (Lr) 1,000 mls @ 100 mls/hr IVCONT .Q10H [facility] Last Admin: 09/28/25 12:26 Dose: 100 mls/hr Documented By: MILENA Insulin Human Lispro (Insulin Lispro 100 Unit/Ml 3 Ml Vial) 2 - 10 unit SUBCUT Q6H [facility]; Protocol Last Admin: 09/28/25 16:25 Dose: Not Given Documented By: MILENA Non-Admin Reason: No Insulin Coverage Magnesium Hydroxide (Milk Of Magnesia 30 Ml Oral.Susp) 30 ml PO DAILY PRN PRN Reason: Constipation Melatonin (Melatonin 3 Mg Tablet) 6 mg PO BEDTIME PRN PRN Reason: Insomnia Metoprolol Tartrate (Metoprolol Tartrate 50 Mg Tablet) 50 mg PO BID [facility]; Protocol Last Admin: 09/28/25 09:38 Dose: 50 mg Documented By: MILENA Ondansetron HCl (Ondansetron Hcl 4 Mg/2 Ml Vial) 4 mg IVPUSH QID PRN PRN Reason: Nausea Last Admin: 09/28/25 08:26 Dose: 4 mg Documented By: MILENA Oxycodone HCl (Oxycodone Hcl Immed Release 5 Mg Tablet) 5 mg PO Q6H PRN PRN Reason: Pain, Moderate(Pain Scale 4-6) Last Admin: 09/26/25 21:23 Dose: 5 mg Documented By: CASTILFlori Sodium Chloride (0.9 % Sodium Chloride Flush 3 Ml Syringe) 3 ml IVFLUSH QSHIFT [facility] Last Admin: 09/28/25 08:26 Dose: 3 ml Documented By: MILENA Labs 09/26/25 02:48 09/28/25 10:31 Labs: Laboratory Results - last 24 hr 09/27/25 09/27/25 09/28/25 16:53 21:18 03:25 Anion Gap Estim Creat Clear Calc Estimated GFR POC Glucose 87 80 79 Random Glucose Calcium Magnesium 09/28/25 09/28/25 09/28/25 07:56 10:31 11:13 Anion Gap 20 Estim Creat Clear Calc 58.9 Estimated GFR > 60 POC Glucose 78 79 Random Glucose 68 Calcium 7.9 L Magnesium 1.5 L 09/28/25 15:58 Anion Gap Estim Creat Clear Calc Estimated GFR POC Glucose 73 Random Glucose Calcium Magnesium Assessment and Plan (1) Orthostatic hypotension: Status: Acute (2) Afib: Status: Acute (3) Paroxysmal atrial fibrillation: Status: Acute (4) Diet-controlled type 2 diabetes mellitus: Status: Acute (5) Small bowel obstruction: Status: Acute Plan 65-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 Small Bowel Obstruction (SBO) ? Likely Adhesive Assessment:?High-grade SBO with transition point, likely secondary to adhesions from prior abdominal surgeries. No evidence of peritonitis, ischemia, or need for emergent surgery. Responding to conservative management. Clamped and NGTube removed 09/28 Plan: Continue NPO, IV fluids, electrolyte monitoring. Serial abdominal exams for signs of clinical deterioration. Advance diet as tolerated once NG tube removed and bowel function returns. Monitor for recurrence; educate patient on warning signs. Paroxysmal Atrial Fibrillation (PAF) Assessment:?History of PAF, on Eliquis and Dronedarone. Eliquis held due to potential surgical intervention; Dronedarone continued as able. No recurrent arrhythmia or hemodynamic instability during admission. Plan: Resume Eliquis when risk of bleeding is acceptable (post-NG, tolerating PO, no surgical intervention planned). Continue Dronedarone as tolerated. Telemetry monitoring until stable and anticoagulation resumed. Outpatient cardiology follow-up. Supraventricular Tachycardia (SVT) Assessment:?History of SVT, with prior episodes. One episode of acute asymptomatic SVT during this admission. At risk given underlying arrhythmia history and current stressors (illness, electrolyte shifts). Plan: Continue telemetry monitoring for arrhythmia detection. Maintain electrolyte balance (K>4, Mg>2). Avoid QT-prolonging and pro-arrhythmic medications. Cardiology input if recurrent or refractory episodes. Chest Pressure Troponin Elevation Assessment:?One episode of chest pressure, troponin 6.6, EKG negative for ischemia, symptoms resolved, likely non-ischemic (demand or CKD-related). Plan: Monitor for recurrent symptoms. No acute intervention required. Consider outpatient cardiology evaluation for further risk stratification. Chronic Kidney Disease (CKD IIIb) Assessment:?Baseline Cr ?1.3, eGFR ?40. No acute worsening. Plan: Avoid nephrotoxic agents and contrast. Maintain euvolemia. Monitor renal function daily. Type 2 Diabetes Mellitus (Diet-Controlled) Assessment:?Mild hyperglycemia on admission, now stable with SSI while NPO. Plan: Continue SSI as needed while NPO. Resume home regimen and dietary management when tolerating PO. Chronic Constipation Assessment:?At baseline, exacerbated by SBO and NPO status. Plan: Hold bowel regimen while NPO. Resume bowel regimen and titrate as needed once PO intake resumes. GERD Assessment:?On chronic acid suppression. Plan: Continue IV famotidine/pantoprazole while NPO. Resume oral regimen when able. Overactive Bladder Assessment:?On oxybutynin at home. Plan: Hold while NPO. Resume when tolerating PO. Anemia Assessment:?Stable, chronic, no evidence of acute blood loss. Plan: Monitor CBC. Resume iron supplementation when PO. Metastatic Carcinoid Tumor (s/p resection) Assessment:?No evidence of acute complications. Plan: Continue routine surveillance and follow-up with oncology. Total time managing care of this patient today: 35 minutes. Quality Stroke Does the patient have a stroke diagnosis?: No VTE Prior VTE?: No VTE Risk Level:: Surgical - moderate VTE Device Contraindication: N/A - Device Ordered VTE Drug Contraindication: N/A - Med Ordered
--- NOTE | 2025-09-28 17:07 | PC.NURSE ---
Addendum entered by Melissa Avila RN 09/28/25 18:38: After sips of clears blood sugar recheck 119. Original Note: MD Ivey and MD Anne made aware pts blood sugar was 73 at approximately 1600. At this time pt is asymptomatic, pt recently started on clear liquid sips, per Hospitalist no dextrose needed at this time and sips of apple juice given.
[2025-09-28 18:35] LABS: Glucose, Whole Blood 119 mg/dL (60-115)
[2025-09-28 21:30] LABS: Glucose, Whole Blood 131 mg/dL (60-115)
--- NOTE | 2025-09-28 23:00 | PC.NURSE ---
Pt was able to take night meds with some jello, denies Nausea/Vomiting/pain at this time, has had 2 formed BM's and reports feeling better so far. Pt sleeping comfortably, Will continue to monitor.
[2025-09-29] VITALS (7 sets, daily range): BP systolic 98–118; BP diastolic 54–75; PULSE 52–72; RESP 12–18; TEMP 36–36.6; O2SAT 94–97
[2025-09-29 03:50] LABS: Glucose, Whole Blood 108 mg/dL (60-115)
--- NOTE | 2025-09-29 07:30 | P.PNGS_ITS ---
Subjective Subjective Date of Service: 09/29/25 Interval history: Patient reports several bowel movements in the last 24 hours. Tolerated removal of NG tube without nausea or abdominal pain. Tolerating clear liquids without nausea. Physical Exam 2 Vital Signs: Vital Signs: Last Vital Signs Temp 97 F 09/29/25 07:09 Pulse 70 09/29/25 07:09 Resp 18 09/29/25 07:09 BP 108/59 L 09/29/25 07:09 Pulse Ox 94 09/29/25 07:09 O2 Del Method Room Air 09/29/25 07:09 BMI result Body Mass Index 25.3 Const: General: no acute distress Nutritional Appearance: well nourished Orientation/consciousness: patient oriented x3 Resp: Effort & Inspection: normal respiratory effort Cardio: Other: Irregular heart rate, 51-61 beats per minute GI: Inspection: Yes normal to inspection Palpation (GI): Soft to palpation, nontender, no guarding and not rigid Percussion: Yes normal to percussion Auscultation: normal bowel sounds Neuro: General: patient oriented x3 Objective Data Active Medications Albuterol Sulfate (Albuterol Sulfate 90 Mcg 8 Gm Inhaler) 2 puff INHALE RQ4H PRN PRN Reason: Shortness Of Breath Or Wheezing Benzocaine (Throat Lozenge, Medicated Lozenge) 1 lozenge MUCOUS MEM Q2H PRN PRN Reason: Sore Throat Last Admin: 09/26/25 21:29 Dose: 1 lozenge Documented By: CASTMAUREEN Bisacodyl (Bisacodyl 10 Mg Supp.Rect) 10 mg SD BEDTIME PRN PRN Reason: Constipation Calcium Carbonate (Calcium Carbonate 750 Mg Tab.Chew) 750 mg PO Q4H PRN PRN Reason: Heartburn Dextrose (Dextrose 50 % 25 Gm/50 Ml Syringe) 25 gm IVPUSH Q15M PRN; Protocol PRN Reason: per Hypoglycemia Standing Ord. Dronedarone (Dronedarone Hcl 400 Mg Tablet) 400 mg PO BID [facility] Last Admin: 09/28/25 20:32 Dose: 400 mg Documented By: GILBERTO Famotidine (Famotidine/Pf 20 Mg/2 Ml Vial) 20 mg IVPUSH DAILY [facility] Last Admin: 09/28/25 08:26 Dose: 20 mg Documented By: MILENA Glucose (Glucose Gel 15 Gm Gel..Gram.) 15 gm PO Q15M PRN; Protocol PRN Reason: per Hypoglycemia Standing Ord. Hydromorphone HCl (Hydromorphone Hcl 0.5 Mg/0.5 Ml Syringe) 0.5 mg IVPUSH Q3H PRN; Protocol PRN Reason: Pain, Severe (Pain Scale 7-10) Last Admin: 09/26/25 16:56 Dose: 0.5 mg Documented By: WES Lactated Ringer's (Lr) 1,000 mls @ 100 mls/hr IVCONT .Q10H [facility] Last Admin: 09/28/25 22:26 Dose: 100 mls/hr Documented By: GILBERTO Insulin Human Lispro (Insulin Lispro 100 Unit/Ml 3 Ml Vial) 2 - 10 unit SUBCUT Q6H [facility]; Protocol Last Admin: 09/29/25 04:02 Dose: Not Given Documented By: GILBERTO Non-Admin Reason: No Insulin Coverage Magnesium Hydroxide (Milk Of Magnesia 30 Ml Oral.Susp) 30 ml PO DAILY PRN PRN Reason: Constipation Melatonin (Melatonin 3 Mg Tablet) 6 mg PO BEDTIME PRN PRN Reason: Insomnia Metoprolol Tartrate (Metoprolol Tartrate 50 Mg Tablet) 50 mg PO BID [facility]; Protocol Last Admin: 09/28/25 20:32 Dose: 50 mg Documented By: GILBERTO Ondansetron HCl (Ondansetron Hcl 4 Mg/2 Ml Vial) 4 mg IVPUSH QID PRN PRN Reason: Nausea Last Admin: 09/28/25 08:26 Dose: 4 mg Documented By: MILENA Oxycodone HCl (Oxycodone Hcl Immed Release 5 Mg Tablet) 5 mg PO Q6H PRN PRN Reason: Pain, Moderate(Pain Scale 4-6) Last Admin: 09/26/25 21:23 Dose: 5 mg Documented By: CASTILFlori Sodium Chloride (0.9 % Sodium Chloride Flush 3 Ml Syringe) 3 ml IVFLUSH QSHIFT [facility] Last Admin: 09/28/25 22:26 Dose: 3 ml Documented By: GILBERTO Labs 09/26/25 02:48 09/28/25 10:31 Labs: Laboratory Results - last 24 hr 09/28/25 09/28/25 09/28/25 07:56 10:31 11:13 Anion Gap 20 Estim Creat Clear Calc 58.9 Estimated GFR > 60 POC Glucose 78 79 Random Glucose 68 Calcium 7.9 L Magnesium 1.5 L 09/28/25 09/28/25 09/28/25 15:58 18:32 21:27 Anion Gap Estim Creat Clear Calc Estimated GFR POC Glucose 73 119 H 131 H Random Glucose Calcium Magnesium 09/29/25 03:46 Anion Gap Estim Creat Clear Calc Estimated GFR POC Glucose 108 Random Glucose Calcium Magnesium Procedures Date of Service Date of Service: 09/29/25 Progress Note: A&P Assessment and plan (1) Small bowel obstruction: Status: Acute Plan 65-year-old female patient with multiple abdominal surgeries returning with a recurrent partial small-bowel obstruction. Her symptoms are now resolving and she is tolerating clear liquids without increase in symptoms. We will advance to full liquids today and if well tolerated regular diet tomorrow. We will restart Eliquis today as well. Patient encouraged to ambulate in the hallways. Time Spent With Patient Time: Total time managing care of this patient today ____ minutes. Quality Stroke Does the patient have a stroke diagnosis?: No VTE Prior VTE?: No VTE Risk Level:: Surgical - moderate VTE Device Contraindication: N/A - Device Ordered VTE Drug Contraindication: N/A - Med Ordered
[2025-09-29 07:49] LABS: Glucose, Whole Blood 96 mg/dL (60-115)
[2025-09-29 11:57] LABS: Glucose, Whole Blood 160 mg/dL (60-115)
[2025-09-29 17:08] LABS: Glucose, Whole Blood 113 mg/dL (60-115)
[2025-09-29 20:08] LABS: Glucose, Whole Blood 166 mg/dL (60-115)
[2025-09-29] MEDS: 0.9 % Sodium Chloride Flush 3 ML SYRINGE IVFLUSH (20:59)
[2025-09-30 00:05] LABS: Anion Gap 9 (12-20); Blood Urea Nitrogen 6 mg/dL (9-16); Calcium 8.0 mg/dL (8.4-10.2); Carbon Dioxide 34 mmol/L (22-29); Chloride 106 mmol/L (96-108); Creatinine Clr Calc Pharmacy 53.5; Estimated Glomerular Filt Rate > 60; Potassium 3.7 mmol/L (3.3-5.1); Sodium 145 mmol/L (135-145)
[2025-09-30 03:56] VITALS: BP 101/57; PULSE 61; RESP 18; TEMP 36.8; O2SAT 98
[2025-09-30 07:26] VITALS: BP 116/59; PULSE 66; RESP 16; TEMP 36.1; O2SAT 97
--- NOTE | 2025-09-30 07:37 | P.PNGS_ITS ---
Subjective Subjective Date of Service: 09/30/25 Interval history: Patient reported to have a bowel movement yesterday. Tolerated the full liquids and would like to try a regular diet. Physical Exam 2 Vital Signs: Vital Signs: Last Vital Signs Temp 97.0 F 09/30/25 07:26 Pulse 66 09/30/25 07:26 Resp 16 09/30/25 07:26 BP 116/59 L 09/30/25 07:26 Pulse Ox 97 09/30/25 07:26 O2 Del Method Room Air 09/30/25 07:26 BMI result Body Mass Index 25.3 Const: General: comfortable Nutritional Appearance: well nourished O rientation/consciousness: patient oriented x3 Resp: Effort & Inspection: normal respiratory effort GI: Inspection: Yes normal to inspection Palpation (GI): Soft to palpation, nontender, no guarding, not rigid and No hepatosplenomegaly present Skin: General skin exam: dry skin Neuro: General: patient oriented x3 Extrem: General: No edema Objective Data Active Medications Albuterol Sulfate (Albuterol Sulfate 90 Mcg 8 Gm Inhaler) 2 puff INHALE RQ4H PRN PRN Reason: Shortness Of Breath Or Wheezing Apixaban (Apixaban 5 Mg Tablet) 5 mg PO BID [facility] Last Admin: 09/29/25 20:57 Dose: 5 mg Documented By: TALI Atorvastatin Calcium (Atorvastatin Calcium 10 Mg Tablet) 10 mg PO BEDTIME [facility] Last Admin: 09/29/25 20:57 Dose: 10 mg Documented By: TALI Benzocaine (Throat Lozenge, Medicated Lozenge) 1 lozenge MUCOUS MEM Q2H PRN PRN Reason: Sore Throat Last Admin: 09/26/25 21:29 Dose: 1 lozenge Documented By: CASTILFlori Bisacodyl (Bisacodyl 10 Mg Supp.Rect) 10 mg IA BEDTIME PRN PRN Reason: Constipation Calcium Carbonate (Calcium Carbonate 750 Mg Tab.Chew) 750 mg PO Q4H PRN PRN Reason: Heartburn Dextrose (Dextrose 50 % 25 Gm/50 Ml Syringe) 25 gm IVPUSH Q15M PRN; Protocol PRN Reason: per Hypoglycemia Standing Ord. Dronedarone (Dronedarone Hcl 400 Mg Tablet) 400 mg PO BID [facility] Last Admin: 09/29/25 20:56 Dose: 400 mg Documented By: TALI Famotidine (Famotidine/Pf 20 Mg/2 Ml Vial) 20 mg IVPUSH DAILY [facility] Last Admin: 09/29/25 10:21 Dose: 20 mg Documented By: ANA Glucose (Glucose Gel 15 Gm Gel..Gram.) 15 gm PO Q15M PRN; Protocol PRN Reason: per Hypoglycemia Standing Ord. Hydromorphone HCl (Hydromorphone Hcl 0.5 Mg/0.5 Ml Syringe) 0.5 mg IVPUSH Q3H PRN; Protocol PRN Reason: Pain, Severe (Pain Scale 7-10) Last Admin: 09/26/25 16:56 Dose: 0.5 mg Documented By: WES Insulin Human Lispro (Insulin Lispro 100 Unit/Ml 3 Ml Vial) 0 unit SUBCUT QIDACHS [facility]; Protocol Last Admin: 09/30/25 07:33 Dose: Not Given Documented By: PIETRO Non-Admin Reason: No Insulin Coverage Magnesium Hydroxide (Milk Of Magnesia 30 Ml Oral.Susp) 30 ml PO DAILY PRN PRN Reason: Constipation Melatonin (Melatonin 3 Mg Tablet) 6 mg PO BEDTIME PRN PRN Reason: Insomnia Last Admin: 09/29/25 22:05 Dose: 6 mg Documented By: TALI Metoprolol Tartrate (Metoprolol Tartrate 50 Mg Tablet) 50 mg PO BID [facility]; Protocol Last Admin: 09/29/25 20:56 Dose: 50 mg Documented By: TALI Montelukast Sodium (Montelukast Sodium 10 Mg Tablet) 10 mg PO BEDTIME [facility] Last Admin: 09/29/25 20:56 Dose: 10 mg Documented By: TALI Octreotide Acetate (Octreotide Acetate,Mi-Spheres 30 Mg Kit) 30 mg IM Q28D [facility] Ondansetron HCl (Ondansetron Hcl 4 Mg/2 Ml Vial) 4 mg IVPUSH QID PRN PRN Reason: Nausea Last Admin: 09/28/25 08:26 Dose: 4 mg Documented By: MILENA Oxycodone HCl (Oxycodone Hcl Immed Release 5 Mg Tablet) 5 mg PO Q6H PRN PRN Reason: Pain, Moderate(Pain Scale 4-6) Last Admin: 09/26/25 21:23 Dose: 5 mg Documented By: GRIFFIN Sodium Chloride (0.9 % Sodium Chloride Flush 3 Ml Syringe) 3 ml IVFLUSH QSHIFT [facility] Last Admin: 09/29/25 20:59 Dose: 3 ml Documented By: JIQC Labs 09/26/25 02:48 09/29/25 23:35 Labs: Laboratory Results - last 24 hr 09/29/25 09/29/25 09/29/25 07:45 11:53 17:05 Anion Gap Estim Creat Clear Calc Estimated GFR POC Glucose 96 160 H 113 Random Glucose Calcium 09/29/25 09/29/25 19:43 23:35 Anion Gap 9 L Estim Creat Clear Calc 53.5 Estimated GFR > 60 POC Glucose 166 H Random Glucose 100 Calcium 8.0 L Procedures Date of Service Date of Service: 09/30/25 Progress Note: A&P Assessment and plan (1) Paroxysmal atrial fibrillation: Status: Acute (2) Small bowel obstruction: Status: Acute Plan Patient continues to improve, tolerating full liquid diet without increased abdominal pain, nausea or vomiting. Abdomen remains benign, nondistended We will advance diet to diabetic regular low-fat Possible discharge tomorrow if tolerated. Time Spent With Patient Time: Total time managing care of this patient today ____ minutes. Quality Stroke Does the patient have a stroke diagnosis?: No VTE Prior VTE?: No VTE Risk Level:: Surgical - moderate VTE Device Contraindication: N/A - Device Ordered VTE Drug Contraindication: N/A - Med Ordered
[2025-09-30 07:39] LABS: Glucose, Whole Blood 104 mg/dL (60-115)
[2025-09-30] MEDS: 0.9 % Sodium Chloride Flush 3 ML SYRINGE IVFLUSH ×3 (08:31→21:36)
[2025-09-30 11:52] VITALS: BP 122/67; PULSE 67; RESP 16; TEMP 36.2; O2SAT 97
[2025-09-30 12:02] LABS: Glucose, Whole Blood 127 mg/dL (60-115)
[2025-09-30 15:08] VITALS: BP 114/61; PULSE 70; RESP 18; TEMP 36.1; O2SAT 95
[2025-09-30 16:18] LABS: Glucose, Whole Blood 197 mg/dL (60-115)
[2025-09-30 19:41] VITALS: BP 107/63; PULSE 62; RESP 19; TEMP 36.3; O2SAT 98
[2025-09-30 20:24] LABS: Glucose, Whole Blood 135 mg/dL (60-115)
[2025-09-30 23:43] VITALS: BP 121/63; PULSE 72; RESP 14; TEMP 36.1; O2SAT 100
[2025-10-01 04:00] VITALS: BP 122/64; PULSE 71; RESP 18; TEMP 36; O2SAT 98
[2025-10-01 07:32] VITALS: BP 113/61; PULSE 70; RESP 16; TEMP 36.3; O2SAT 95
[2025-10-01 07:37] LABS: Glucose, Whole Blood 123 mg/dL (60-115)
--- NOTE | 2025-10-01 07:38 | P.PNGS_ITS ---
Subjective Subjective Date of Service: 10/01/25 Interval history: Feels well this morning. Denies abdominal pain. Tolerating solid food without pain, nausea, vomiting. Passing flatus, had two BMs on Monday. Would like to go home. Physical Exam 2 Vital Signs: Vital Signs: Last Vital Signs Temp 97.4 F 10/01/25 07:32 Pulse 70 10/01/25 07:32 Resp 16 10/01/25 07:32 BP 113/61 10/01/25 07:32 Pulse Ox 95 10/01/25 07:32 O2 Del Method Room Air 10/01/25 07:32 BMI result Body Mass Index 25.3 Const: General: comfortable, no acute distress and alert O rientation/consciousness: patient oriented x3 Resp: Effort & Inspection: normal respiratory effort GI: Inspection: No distended Palpation (GI): Soft to palpation, nontender and no guarding Skin: Other: warm and dry General skin exam: no rashes or lesions noted Neuro: General: patient oriented x3 and moves all extremities Objective Data Active Medications Albuterol Sulfate (Albuterol Sulfate 90 Mcg 8 Gm Inhaler) 2 puff INHALE RQ4H PRN PRN Reason: Shortness Of Breath Or Wheezing Apixaban (Apixaban 5 Mg Tablet) 5 mg PO BID [facility] Last Admin: 09/30/25 21:35 Dose: 5 mg Documented By: FLEX Atorvastatin Calcium (Atorvastatin Calcium 10 Mg Tablet) 10 mg PO BEDTIME [facility] Last Admin: 09/30/25 21:35 Dose: 10 mg Documented By: FLEX Benzocaine (Throat Lozenge, Medicated Lozenge) 1 lozenge MUCOUS MEM Q2H PRN PRN Reason: Sore Throat Last Admin: 09/26/25 21:29 Dose: 1 lozenge Documented By: CASTILM Bisacodyl (Bisacodyl 10 Mg Supp.Rect) 10 mg IN BEDTIME PRN PRN Reason: Constipation Calcium Carbonate (Calcium Carbonate 750 Mg Tab.Chew) 750 mg PO Q4H PRN PRN Reason: Heartburn Dextrose (Dextrose 50 % 25 Gm/50 Ml Syringe) 25 gm IVPUSH Q15M PRN; Protocol PRN Reason: per Hypoglycemia Standing Ord. Dronedarone (Dronedarone Hcl 400 Mg Tablet) 400 mg PO BID [facility] Last Admin: 09/30/25 21:35 Dose: 400 mg Documented By: FLEX Famotidine (Famotidine/Pf 20 Mg/2 Ml Vial) 20 mg IVPUSH DAILY [facility] Last Admin: 09/30/25 08:31 Dose: 20 mg Documented By: PIETRO Glucose (Glucose Gel 15 Gm Gel..Gram.) 15 gm PO Q15M PRN; Protocol PRN Reason: per Hypoglycemia Standing Ord. Hydromorphone HCl (Hydromorphone Hcl 0.5 Mg/0.5 Ml Syringe) 0.5 mg IVPUSH Q3H PRN; Protocol PRN Reason: Pain, Severe (Pain Scale 7-10) Last Admin: 09/26/25 16:56 Dose: 0.5 mg Documented By: WES Insulin Human Lispro (Insulin Lispro 100 Unit/Ml 3 Ml Vial) 0 unit SUBCUT QIDACHS [facility]; Protocol Last Admin: 09/30/25 20:46 Dose: Not Given Documented By: FLEX Non-Admin Reason: No Insulin Coverage Magnesium Hydroxide (Milk Of Magnesia 30 Ml Oral.Susp) 30 ml PO DAILY PRN PRN Reason: Constipation Melatonin (Melatonin 3 Mg Tablet) 6 mg PO BEDTIME PRN PRN Reason: Insomnia Last Admin: 09/29/25 22:05 Dose: 6 mg Documented By: TALI Metoprolol Tartrate (Metoprolol Tartrate 50 Mg Tablet) 50 mg PO BID [facility]; Protocol Last Admin: 09/30/25 21:35 Dose: 50 mg Documented By: FLEX Montelukast Sodium (Montelukast Sodium 10 Mg Tablet) 10 mg PO BEDTIME [facility] Last Admin: 09/30/25 21:35 Dose: 10 mg Documented By: FLEX Octreotide Acetate (Octreotide Acetate,Mi-Spheres 30 Mg Kit) 30 mg IM Q28D [facility] Ondansetron HCl (Ondansetron Hcl 4 Mg/2 Ml Vial) 4 mg IVPUSH QID PRN PRN Reason: Nausea Last Admin: 09/28/25 08:26 Dose: 4 mg Documented By: MILENA Oxycodone HCl (Oxycodone Hcl Immed Release 5 Mg Tablet) 5 mg PO Q6H PRN PRN Reason: Pain, Moderate(Pain Scale 4-6) Last Admin: 09/26/25 21:23 Dose: 5 mg Documented By: CASTILFlori Sodium Chloride (0.9 % Sodium Chloride Flush 3 Ml Syringe) 3 ml IVFLUSH QSHIFT [facility] Last Admin: 09/30/25 21:36 Dose: 3 ml Documented By: FLEX Labs 09/26/25 02:48 09/29/25 23:35 Labs: Laboratory Results - last 24 hr 09/30/25 09/30/25 09/30/25 07:32 11:56 16:05 POC Glucose 104 127 H 197 H 09/30/25 10/01/25 20:07 07:31 POC Glucose 135 H 123 H Procedures Date of Service Date of Service: 10/01/25 Progress Note: A&P Assessment and plan (1) Small bowel obstruction: Status: Acute Plan SBO resolved. Tolerating solid diet with good GI function and benign abd exam. Clinically appearing well. Stable for dc to home today. F/u with PCP. Patient comfortable with plan. Time Spent With Patient Time: Total time managing care of this patient today ____ minutes. Quality Stroke Does the patient have a stroke diagnosis?: No VTE Prior VTE?: No VTE Risk Level:: Surgical - moderate VTE Device Contraindication: N/A - Device Ordered VTE Drug Contraindication: N/A - Med Ordered
[2025-10-01] MEDS: 0.9 % Sodium Chloride Flush 3 ML SYRINGE IVFLUSH (07:41)
--- NOTE | 2025-10-01 09:09 | MHC.CM.PN ---
pt dcd home self care
[2025-10-01 11:52] LABS: Glucose, Whole Blood 99 mg/dL (60-115)
[2025-10-01 11:54] VITALS: BP 118/53; PULSE 68; RESP 16; TEMP 36.4; O2SAT 99
--- NOTE | 2025-10-01 13:56 | PM.DS ---
DS: Providers Provider Date of Service: 10/01/25 Date of admission: 09/25/25 00:33 Date of discharge: 10/01/25 Primary care physician: Patti Crabtree MD Attending physician on admission: Parish Sanchez Consults: 09/25/25 00:30 Consult to Hospitalist Routine Comment: Consulting Provider: [facility] Hospitalists Reason For Exam: SBO, DM,AFIB, anticoag management Attending physician on discharge: Parish Sanchez DS: Diagnosis Discharge Diagnosis (1) Small bowel obstruction: Status: Acute DS: Summary Hospital Course Hospital Course: HPI AT ADMISSION: Jack Urrutia is a 65 year old female well known to the surgery service with a history of Hogan syndrome, diet controlled diabetes mellitus, PAF, metastatic carcinoid tumor, status post partial resection and previous history of small-bowel obstruction requiring lysis of adhesions returning to the emergency department with complaints of abdominal pain with nausea but no vomiting and constipation for approximately 4-5 days. She reported increased GERD symptoms throughout the week as well. She presented to the emergency department and was noted to have abdominal distention and tenderness. Laboratories revealed a normal WBC. CT abdomen and pelvis revealed dilated loops of small bowel with a transition point in the left lower quadrant suggestive of a small-bowel obstruction. HOSPITAL COURSE: Patient was admitted to the surgical service for further management of this recurrent small bowel obstruction. NG tube was placed to decompress proximal small bowel and patient placed on bowel rest with further plan dependent on clinical course. Hospitalist consultation was obtained for further management of cardiac issues and diabetes. Her symptoms improved slowly and NGT output decreased. She began passing flatus. It was trial clamped and removed on HD #3 as she remained asymptomatic with low residual. Her diet was slowly advanced as tolerated from clear liquids to fulls and then solids. Her eliquis was initiated. She began to move her bowels. On the day of discharge, she was tolerating a solid diet without any nausea, vomiting or abdominal pain. She was ambulating without difficulty. Her abdomen was benign and soft, nontender, nondistended. She was hemodynamically stable. She was discharged to home on 10/01/25 in stable condition. She is to follow up with her PCP. Status at Discharge Functional status at discharge: uses cane/walker Overall status at discharge: patient is back to baseline Time Attestation Discharge Coordination Time (in mins): 30 Quality: Safe Use of Opioids Does Pt have an Active Cancer Diagnosis on the Problem List?: No Quality: Stroke Does the patient have a stroke diagnosis?: No Physical Exam Vital Signs: Vital Signs: Last Vital Signs Temp 97.5 F 10/01/25 11:54 Pulse 68 10/01/25 11:54 Resp 16 10/01/25 11:54 BP 118/53 L 10/01/25 11:54 Pulse Ox 99 10/01/25 11:54 O2 Del Method Room Air 10/01/25 11:54 BMI result Body Mass Index 25.3 Const: General: comfortable, no acute distress and alert Orientation/consciousness: patient oriented x3 Resp: Effort & Inspection: normal respiratory effort GI: Inspection: No distended Palpation (GI): Soft to palpation, nontender and no guarding Skin: General skin exam: no rashes or lesions noted Neuro: General: patient oriented x3 DS: Data Data Completed and Pending Completed studies during hospitalization [Text1]: Procedures Introduction of Anesthetic Agent into Peripheral Nerves and Plexi, Percutaneous Approach (05/16/24) Release Peritoneum, Open Approach (09/18/22) Supplement Abdominal Wall with Synthetic Substitute, Open Approach (05/16/24) Labs on day of discharge: Laboratory Results - last 24 hr 09/30/25 09/30/25 10/01/25 16:05 20:07 07:31 POC Glucose 197 H 135 H 123 H 10/01/25 11:49 POC Glucose 99 Discharge Plan Discharge Anticipated Discharge Date/Time: 10/01/25 07:37 Patient Disposition: Home, Self-Care Discharge Diagnosis: SBO Referrals: Patti Crabtree MD [Primary Care Provider, Internal Medicine] - 1 Week Discharge Medications: Continued loratadine 10 mg tablet 10 mg PO BEDTIME Qty: 90 3RF oxybutynin chloride 10 mg tablet extended release 24hr 10 mg PO BEDTIME Qty: 90 0RF montelukast 10 mg tablet 10 mg PO BEDTIME Qty: 90 1RF Eliquis 5 mg tablet 5 mg PO BID Qty: 180 3RF simvastatin 20 mg tablet 20 mg PO BEDTIME Qty: 90 1RF omeprazole 40 mg capsule,delayed release(DR/EC) 40 mg PO DAILY Qty: 90 1RF Rx Instructions: Take one tablet daily. Best taken 30 minutes before meal meclizine 25 mg tablet 25 mg PO BID PRN (Reason: motion sickness) 90 Days Qty: 180 3RF famotidine 20 mg tablet 20 mg PO BID Qty: 180 1RF Rx Instructions: Take one tablet twice daily ferrous sulfate 325 mg (65 mg iron) Tablet 325 mg PO BID Qty: 60 4RF lactulose 10 gram/15 mL solution 15 ml PO BEDTIME PRN (Reason: Constipation) melatonin 5 mg capsule 5 mg PO BEDTIME PRN (Reason: To sleep) albuterol sulfate 90 mcg/actuation HFA aerosol inhaler 2 puff INHALATION Q4-6H PRN (Reason: Shortness Of Breath Or Wheezing) Qty: 8.5 0RF cholecalciferol (vitamin D3) 25 mcg (1,000 unit) tablet 25 mcg PO DAILY docusate sodium [Colace] 100 mg capsule 100 mg PO BID PRN (Reason: constipation) octreotide,microspheres 30 mg suspension,extended rel recon 30 mg IM Q4W metoprolol tartrate 50 mg tablet 50 mg PO BID Qty: 60 5RF Multaq 400 mg tablet 400 mg PO BID Qty: 60 2RF Rx Instructions: must administer with a meal/food tramadol 50 mg tablet 50 mg PO DAILY PRN (Reason: Pain) Discharge Orders: Discharge Order (Routine); Ordered 10/01/25 Ordered By: Lizbet Yee Diet: Diabetic diet Activity on Discharge: As tolerated Stand Alone Forms: Patient Portal Discharge page Print Language: Swazi Activity Restrictions/Additional Instructions: Follow up with your PCP. Call Your Doctor If: ? ? -Your temperature exceeds 101.5? F? ? ? -You experience excessive pain ? ? -You experience continued vomiting/nausea and are unable to tolerate any oral intake Care Plan Goals: Return to baseline health and resume normal activities as tolerated. Health Concerns: SBO Plan of Treatment: Supportive measures Resumption of home meds Assessment: Improved Discharge Date/Time: 10/01/25 13:34
== END 2025-10-01 13:34 | disposition home or self-care (01) | DRG 389 ==
LOC: HO.ED 19:46 → HO.EDOVER 09-25 00:40 → HO.S3 09-25 07:46
PROVIDERS: Hospitalist; Nurse Practitioner Family; Physician Assistant; Surgery; Admitting Provider Surgery; Emergency Provider Student in an Organized Health Care Education/Training Program; PCP Internal Medicine; Visit Provider Surgery
DX: K56.51 Intestinal adhesions [bands], with partial obstruction (principal); I47.10 Supraventricular tachycardia, unspecified; Q96.9 Turner's syndrome, unspecified; I48.0 Paroxysmal atrial fibrillation; D50.9 Iron deficiency anemia, unspecified; E11.22 Type 2 diabetes mellitus with diabetic chronic kidney disease; N18.32 Chronic kidney disease, stage 3b; K59.09 Other constipation; K21.9 Gastro-esophageal reflux disease without esophagitis; N32.81 Overactive bladder; Z79.01 Long term (current) use of anticoagulants; Z79.899 Other long term (current) drug therapy
CPT/HCPCS: 36415; 71045; 74177; 80048; 80076; 81003; 82947; 83690; 83735; 84484; 85025; 93005; 99285; J0131; J1171; J1308; J2270; J2353; J2405; J2470; J7120; Q9967

== ENCOUNTER → 2025-09-24 21:38 | Outpatient (BNV) | payer MEDICARE, MEDICAID, SELFPAY | PROVIDERS: Admitting Provider Surgery; Emergency Provider Student in an Organized Health Care Education/Training Program; PCP Internal Medicine; Visit Provider Radiology Neuroradiology | DX: K31.0 Acute dilatation of stomach (principal) | CPT/HCPCS: 74177 ==

== ENCOUNTER 2025-09-25 00:33 | Outpatient (BNV) | payer MEDICARE, MEDICAID, SELFPAY | END 2025-09-28 01:44 | PROVIDERS: Admitting Provider Surgery; Emergency Provider Student in an Organized Health Care Education/Training Program; PCP Internal Medicine; Visit Provider Internal Medicine | DX: R07.9 Chest pain, unspecified (principal) | CPT/HCPCS: 93010 ==

== ENCOUNTER 2025-09-25 00:33 | Outpatient (BNV) | payer MEDICARE, MEDICAID, SELFPAY | END 2025-09-25 02:35 | PROVIDERS: Admitting Provider Surgery; Emergency Provider Student in an Organized Health Care Education/Training Program; PCP Internal Medicine; Visit Provider Radiology Neuroradiology | DX: J98.11 Atelectasis (principal); Z46.59 Encounter for fitting and adjustment of other gastrointestinal appliance and device | CPT/HCPCS: 71045 ==

== ENCOUNTER 2025-09-25 00:33 | Outpatient (BNV) | payer MEDICARE, MEDICAID, SELFPAY | END 2025-09-26 03:01 | PROVIDERS: Admitting Provider Surgery; Emergency Provider Student in an Organized Health Care Education/Training Program; PCP Internal Medicine; Visit Provider Internal Medicine Cardiovascular Disease | DX: R94.31 Abnormal electrocardiogram [ECG] [EKG] (principal); R07.9 Chest pain, unspecified | CPT/HCPCS: 93010 ==

== ENCOUNTER → 2025-09-25 00:33 | Outpatient (BNV) | payer MEDICARE, MEDICAID, SELFPAY | PROVIDERS: Admitting Provider Surgery; Emergency Provider Student in an Organized Health Care Education/Training Program; PCP Internal Medicine; Visit Provider Surgery | DX: K56.609 Unspecified intestinal obstruction, unspecified as to partial versus complete obstruction (principal) | CPT/HCPCS: 99232; 99499 ==

== ENCOUNTER → 2025-09-25 00:33 | Outpatient (BNV) | payer MEDICARE, MEDICAID, SELFPAY | PROVIDERS: Admitting Provider Surgery; Emergency Provider Student in an Organized Health Care Education/Training Program; PCP Internal Medicine; Visit Provider Nurse Practitioner Family | DX: K56.609 Unspecified intestinal obstruction, unspecified as to partial versus complete obstruction (principal); I48.0 Paroxysmal atrial fibrillation; E11.9 Type 2 diabetes mellitus without complications; K21.9 Gastro-esophageal reflux disease without esophagitis; N32.81 Overactive bladder; Q96.9 Turner's syndrome, unspecified | CPT/HCPCS: 99223; 99499 ==

== ENCOUNTER → 2025-10-09 12:35 | Outpatient (REF) | payer MEDICARE, MEDICAID, SELFPAY | LOC: HO.CARD 12:35 | PROVIDERS: PCP Internal Medicine; Visit Provider Internal Medicine Cardiovascular Disease | DX: I48.0 Paroxysmal atrial fibrillation (principal) | CPT/HCPCS: 93225 ==

== ENCOUNTER → 2025-10-09 12:38 | Outpatient (BNV) | payer MEDICARE, MEDICAID, SELFPAY | PROVIDERS: PCP Internal Medicine; Visit Provider Internal Medicine Cardiovascular Disease | DX: I48.0 Paroxysmal atrial fibrillation (principal) | CPT/HCPCS: 93227 ==

== ENCOUNTER 2025-10-17 13:42 | Outpatient (AMB) | payer MEDICARE, MEDICAID, SELFPAY ==
--- NOTE | 2025-10-17 13:54 | MHC.OFFVIS ---
Vital Signs 10/17/25 13:59 Height 4 ft 10 in Weight 109 lb BMI 22.8 BP 122/72 Blood Pressure Location Lt brachial Position Sitting Pulse 74 Intake Visit Reasons: constipation with black stool and nausea Intake Note: Patient follow up for constipation with black stool and nausea Patient cc: constipation on and off, no more black stool, denies any GI issues for today. Patient went to the [facility] ED due bowel obstruction and she was admited x 7 dates. Dental Hygiene Instructor Required: No Accompanied by: Self / Same As Patient Allergies Chocolate Allergy (Mild, Verified 10/17/25 13:53) Rash environmental allergies Allergy (Mild, Verified 10/17/25 13:53) Itchy Eyes erythromycin base (Erythromycin Base) Adverse Reaction (Intermediate, Verified 10/17/25 13:53) GI UPSET ibuprofen (From Motrin) Adverse Reaction (Intermediate, Verified 10/17/25 13:53) Gastrointestinal Upset, increases pain HPI HPI constipation with black stool and nausea: Details: Patient is a 64-year-old female with PMH of Hogan's syndrome, vitamin d deficiency, hyperlipidemia, overactive bladder, GERD diet controlled diabetes mellitus, PAF, neuroendoscrine tumor s/p partial excision and previous history of small-bowel obstruction requiring lysis of adhesions. 6-month follow-up for reflux and constipation. Regarding her reflux, she was taking omeprazole, which initially worked but she later experienced breakthrough nausea. A nurse advised her to take the medication on an empty stomach 30-60 minutes before a meal, and this has improved her symptoms. The patient has a known history of biliary dyskinesia evident on prior HIDA scan. Cholecystectomy was not recommended due to her age, increased anesthesia risk, and the desire to avoid creating more post-surgical scar tissue. She has been advised to manage this with dietary modifications. The patient has a significant history of small bowel obstructions caused by post-surgical adhesions. She was hospitalized around of this year for a small bowel obstruction, presenting with severe intestinal pain, chest pain, and nausea without vomiting. A CT scan at that time showed dilated small bowel with a transition point in the left lower quadrant. She was treated with nasogastric tube decompression, advanced from a clear liquid to solid diet, and was subsequently discharged. For chronic constipation, the patient has been purchasing Colace [id number] and takes it twice a day, which has resulted in bowel movements. She also has lactulose to use as needed to prevent constipation and subsequent bowel obstructions. She has a history of hemorrhoids and reports occasional straining and seeing red, but not bright red, blood in her stool recently. 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 [facility] Medical History (Updated 10/17/25 @ 15:15 by Christina Lynch CNP) Hemorrhoids Dysphagia History of COVID-19 COVID-19 vaccine administered Constipation Afib Overactive bladder Environmental allergies Neuroendocrine neoplasm of gastrointestinal tract Lipid disorder Colon polyp Gastric polyp Anemia Vitamin D deficiency Hyperlipemia Diabetes Arthritis IBS (irritable bowel syndrome) GERD (gastroesophageal reflux disease) Asthma Surgical History History of incisional hernia repair (05/15/24) Hx of resection of small bowel H/O exploratory laparotomy (09/20/22) History of colonoscopy History of esophagogastroduodenoscopy Family History Father Afib Pneumonia Brother Afib Heart disease Brother Heart disease Mother Unknown family medical history Social History Household Members: None Housing: Apartment Housing Other:: mental health association [facility] Are you a primary home health care provider to a significant other at home: No Do you presently have 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 or other home services: No Alcohol intake: never Patient Tobacco Use Status: Never used Tobacco e-Cigarette/Vaping Use: Never Used Second Hand Smoke Exposure: No Advance Directives Date on File: 12/01/21 service: No Current occupational status: disabled Cognitive needs: No Hearing needs: No Vision needs: Yes Review of Systems Const Reports as per HPI ENT Reports as per HPI Card Reports as per HPI Resp Reports as per HPI GI Reports as per HPI Reports as per HPI Physical Exam Vital Signs: BMI result Body Mass Index 22.8 Const General: healthy appearing, no acute distress and well developed Nutritional Appearance: average body habitus Orientation/consciousness: patient oriented x3 HEENT Head: Yes normal to inspection, Yes normocephalic and Yes atraumatic Face and sinus: Yes normal facial exam Neck Neck: Yes normal visual inspection Resp Effort & Inspection: normal respiratory effort, able to speak in complete sentences, no tracheal deviation and symmetric chest movement Cardio Jugular venous distension: no JVD GI Inspection: Yes normal to inspection, No distended and Yes obesity Palpation (GI): Soft to palpation, not firm, nontender and No hepatosplenomegaly present Auscultation: normal bowel sounds Neuro General: patient oriented x3 Gait exam (Neuro): Normal gait present Psych Appearance: grossly normal Mental Status: mental status grossly normal Speech and movement: Normal speech and movement present Affect: normal affect Attitude: cooperative Thought process: Normal thought process present Thought content: Normal thought content present Insight: Good insight present (Psych) Judgement: Good judgement present (Psych) Results Reviewed Results Reviewed: Operative Note Date of Service: 11/18/22 Narrative: Pre-op diagnosis: Colon cancer screening, IBS Post-op diagnosis: other (Diverticulosis) Surgeon: Samuel Watters MD Anesthesia: MAC COLONOSCOPY TILL CECUM WITH BIOPSIES Consent: Indications for the procedure and potential complications of bleeding, perforation, reaction to medications and missed diagnosis were discussed with the patient and informed consent was obtained. Instrument: Olympus PCF H 190 L variable stiffness pediatric colonoscope Monitoring: Vital signs and clinical assessment, intermittent blood pressure monitoring, continuous EKG monitoring, Pulse oximetry and Carbon Dioxide monitoring were done throughout the procedure. Colon withdrawl time was 20 minutes. Procedure: The patient was placed in the left lateral decubitis position and pre-procedure medications were administered. After a digital rectal examination of the ano-rectum, the video colonoscope was inserted into the rectum and advanced through the colon to the cecum. The colonoscope was slowly withdrawn in a retrograde panoramic fashion and the colon mucosa was carefully examined including a retroflexed view of the rectum. Findings and interventions are described below. Procedure Difficulty: Colon was long and tortuous and there was recurrent loop formation. Patient was placed in the supine position and LLQ pressure was applied to intubate the ascending colon Findings: Terminal Ileum: Not evaluated Cecum: Normal Ascending Colon: Normal Transverse Colon: Normal Descending Colon: Normal Sigmoid Colon: Moderate diverticulosis Rectum: Normal Ano-rectum: Normal Colon preparation: Good after copious irrigation Impression and Post Procedure Diagnosis: Colonoscopy Findings: No polyps were detected. Random biopsies were obtained from the right and left colon to check for microscopic colitis Moderate diverticulosis seen in the sigmoid colon Plan: Await pathology results Patient has an appointment on 12/01/22 in the GI Clinic with RAVINDER Rivers. Repeat Colonoscopy in 10 years if biopsies are normal. Above findings were reviewed with the patient and diverticulosis handout was given in the discharge area PATHOLOGY: Collected: 11/18/22 Location: [facility] Received: 11/18/22 Diagnosis A. Colon, random right, biopsy: Colonic mucosa within normal limits; negative for microscopic colitis. B. Colon, random left, biopsy: Colonic mucosa within normal limits; negative for microscopic colitis. Clinical History Pre-Op Dx: Colon cancer screening, IBS Post-Op Dx: Diverticulosis, r/o microscopic colitis Assessment & Plan Assessment & Plan (1) Small bowel obstruction: Comment: -SBO, medical management 08/2025 -exploratory laparotomy and lysis of adhesions / bowel obstruction in August 2022. Code(s): K56.609 - Unspecified intestinal obstruction, unspecified as to partial versus complete obstruction Category: Medical Plan: The patient has a history of bowel obstruction from post-surgical adhesions. - Management will remain conservative, focusing on preventing constipation with Colace and PRN lactulose to avoid future obstructions. - Surgical intervention is being avoided to prevent the formation of further adhesions. (2) Constipation: Code(s): K59.00 - Constipation, unspecified Category: Medical Qualifiers: Constipation type: unspecified constipation type Qualified Code(s): K59.00 - Constipation, unspecified Plan: Chronic. The patient has been taking [id number] Colace twice daily as she was unable to fill the prescription sent on October 06. - The prescription for Colace will be resent. - She will continue to use lactulose as needed to prevent constipation and subsequent bowel obstruction. (3) GERD (gastroesophageal reflux disease): Comment: EGD with biopsy, colonoscopy 01/13/2010 -gastric polyp; hyperplastic polyp with focal erosion, inflammation and edema. Code(s): K21.9 - Gastro-esophageal reflux disease without esophagitis Category: Medical Qualifiers: Esophagitis presence: esophagitis presence not specified Qualified Code(s): K21.9 - Gastro-esophageal reflux disease without esophagitis Plan: The patient's reflux symptoms have improved since she started taking omeprazole 30 to 60 minutes before meals. - She will continue also continue famotidine Encouraged to take omeprazole as prescribed, taken at least 30-60 minutes before a meal. Education on GERD prevention : -Advised against heavy meals; encouraged small meals instead of large ones. - Instructed to remain upright for 2?3 hours after eating. - Advised to avoid late-night meals, spicy foods, caffeine, alcohol, known dietary triggers, and tight-fitting clothing. - Emphasis placed on gradual implementation of lifestyle changes to improve adherence and symptom control. 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 - Cholecystectomy is not recommended due to surgical risks, including the potential for increased adhesion formation. - She is advised to continue with dietary modifications. (6) Hemorrhoids: Code(s): K64.9 - Unspecified hemorrhoids Category: Medical Qualifiers: Hemorrhoid type: unspecified Qualified Code(s): K64.9 - Unspecified hemorrhoids Plan: The patient reports having hemorrhoids and recent bleeding. - She was offered a prescription for a topical cream, which she declined. Plan Follow-up in 6 months or sooner as needed Time: I spent a total of 30 minutes on the date of encounter which includes: Preparing to see the patient (reviewed previous documentation, test results and medical history) Performing a medically appropriate exam and/or evaluation Ordering medications, tests, and procedures Documenting clinical information in the health record Medications: New hydrocortisone 1% Apply sparingly, up to twice daily as needed 1 appl IA BID PRN 28.4 grams 2RF hemorrhoids Changed From lactulose 15 mL PO BEDTIME PRN Constipation To lactulose Take 15ml if no bowel movement after 3 days. 15 mL PO BEDTIME PRN 237 mL 2RF Constipation Refilled docusate sodium (Colace) 100 mg PO BID PRN 60 caps 1RF constipation Coding Level of Care Code Established Pt Est Pt Level 4 (99154) Patient Type Established Diagnoses Small bowel obstruction K56.609 Constipation K59.00 Constipation type: unspecified constipation type Gastroesophageal reflux disease, unspecified whether esophagitis present K21.9 Esophagitis presence: esophagitis presence not specified Neuroendocrine neoplasm of gastrointestinal tract D3A.8 Biliary dyskinesia K82.8 Hemorrhoids, unspecified hemorrhoid type K64.9 Hemorrhoid type: unspecified
[2025-10-17 13:59] VITALS: BP 122/72; PULSE 74; BMI 22.8
--- OUTSIDE RECORDS SUMMARY | 2025-10-17 15:24 | XMS_ITS | Clinical Summary ---
Author Organization [facility] Address [address] [place] [id number] Phone Care Team Providers Care Certified Physical Therapist Assistant Name Role Phone Patti Crabtree MD Primary Care Provider [phone] Allergies Active Allergy Reactions Criticality Noted Date [...] file Insurance MEDICARE PART A & B [facility] MEDICARE PART A & B Member Subscriber Plan / Payer (Ef fective 2003-Present) Name:Jack Urrutia Member ID:[id number] Relation to Subscriber:Self Name:Jack Urrutia Subscriber ID:[id number] Payer ID:[id number] Group ID:Not on file Type:Medicare Address: [facility] [employer] [facility] [address] [place], [place] [id number] [place] PART A & B Member Subscriber Plan / Payer (Ef fective 2003-Present) Name:Jack Urrutia Member ID:[id number] Relation to Subscriber:Self Name:Jack Urrutia Subscriber ID:[id number] Payer ID:[id number] Group ID:Not on file Type:Medicare Address: [facility] [employer] [facility] [address] [place] [id number] [facility] PART A & B [place] PART A & B [facility] PART A & B [facility] Care Teams Certified Physical Therapist Assistant Relationship Specialty Start Date End Date Patti Crabtree MD [address] [place] [address] PCP - General Internal Medicine 01/26/23 Additional Source Comments The information contained in this document represents components of the legal health record. It is not the complete legal health record.[facility]
--- OUTSIDE RECORDS SUMMARY | 2025-10-17 15:24 | XMS_ITS | Clinical Summary ---
Author Organization [address] [facility] Address [address] [place] [address] Phone Care Team Providers Care Cisco Consultant Name Role Phone Patti Crabtree MD Primary Care Provider [phone] Allergies Active Allergy Reactions Criticality Noted Date [...] (12/25/2024): IMO update DM type 2 (diabetes mellitus, type 2) 01/18/2012 Down syndrome 01/18/2012 Dysfunctional uterine bleeding 01/18/2012 Anemia 01/18/2012 Esophageal reflux 01/18/2012 Mild intellectual disability 01/18/2012 Paroxysmal A-fib 01/18/2012 Overview (12/25/2024): suppressed on Multaq Encounters Date Type Department Care Team Description 08/21/2025 1:30 PM EDT Office Visit Orthopedic Surgery - [place] [address] [place] [phone] Venancio Vásquez, DPM Dermatophytosis of nail (Primary Dx); Hammer toe of left foot; Acquired hammer toe of right foot; Type II diabetes mellitus with peripheral circulatory disorder ([facility] V24, [facility] V28); Metatarsalgia of both feet; Pain in toe of right foot; Pain in toe of left foot from Last 3 Months Medical History Medical History Date Comments Hypertension 01/18/2012 DX:Hypertension Historical Medical DX 01/18/2012 DX:Hyperli pidemia LDL goal < 70 DM type 2 (diabetes mellitus , type 2) ([facility] V24, [facility] V28) 01/18/2012 DX:DM type 2 (diabetes naya itus, type 2) ([facility]) Paroxysmal A-fib ([facility] V2 4, [facility] V28) 01/18/2012 DX:Paroxysmal A-fib ([facility]) Esophageal reflux 01/18/2012 DX:Esophageal reflux H/O: [...] PM EST Office Visit Orthopedic Surgery - [place] [address] [phone] Venancio Vásquez, DPM [address] [phone] Health Maintenance Due Date Last [...] Influencers of Health Screening 12/19/2024 COVID-19 Vaccine ( - 2024-2 6 season) 2025 Influenza Vaccine [...] Insurance MEDICARE [place]ICAID - [place] Care Teams Cisco Consultant Relationship Specialty Start Date End Date Patti Crabtree MD [address] [place] [address] PCP - General Internal Medicine 12/19/24
--- OUTSIDE RECORDS SUMMARY | 2025-11-29 19:00 | XMS_ITS | Clinical Summary ---
Author Organization Unknown Care Team Providers Care Property Economist Name Role Phone JORGE QUISPE, BOYD Unavailable Unavailable ADRIEN RN, SHANNEN Unavailable Unavailable Payers Payer Name Policy Type Policy Number Effective Date Expira tion Date MEDICARE - [place] PDGM [id number] Problems Condition Name Condition Details Condition Category Status Onset Date Resolution Date Last Treatment Date Treating Clinician Comments OTHER COMPLETE INTESTINAL OBSTRUCTION Active 10-30 00:00: 00 UNSPECIFIED ASTHMA, UNCOMPLICATE D Active 10-30 00:00: 00 Irritable bowel syndrome, unspecified Active 10-30 00:00: 00 TYPE 2 DIABETES MELLITUS W DIABETIC CHRONIC KIDNEY DISEASE Active 10-30 00:00: 00 CHRONIC KIDNEY DISEASE, STAGE 3B Active 10-30 00:00: 00 IRON DEFICIENCY ANEMIA, UNSPECIFIED Active 10-30 00:00: 00 UNSPECIFIED OSTEOARTHRIT IS, UNSPECIFIED SITE Active 10-30 00:00: 00 PAROXYSMAL ATRIAL FIBRILLATION Active 10-30 00:00: 00 OVERACTIVE BLADDER Active 10-30 00:00: 00 OTHER CONSTIPATION Active 10-30 00:00: 00 GASTRO-ESOPH AGEAL REFLUX DISEASE WITHOUT ESOPHAGITIS Active 10-30 00:00: 00 VITAMIN D DEFICIENCY, UNSPECIFIED Active 10-30 00:00: 00 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 AUTHOR (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 ANTICOAGULAN TS Active 10-30 00:00: 00 Personal history of colon polyps, unspecified Active 10-30 00:00: 00 Problems related to health literacy Active - 00:00: 00 PROBLEMS RELATED TO LIVING ALONE Active 10-30 00:00: 00 Allergies, Adverse Reactions, Alerts Allergy Name Allergy Type Status Severity Reaction(s) Onset Date Inactive Date Treating Clinician Comments CHOCOLATES Propensity to adverse reactions Active 2024-10 10:32: 18 IBUPROFEN Propensity to adverse reactions Active 2024-10 10:32: 57 ERYTHROMYCIN Propensity to adverse reactions Active 2024-10 10:33: 11 Medications Ordered Medication Name Filled Medication Name Start Date Stop Date Current Medication? Ordering Clinician Indication Dosage Frequency Signature (SIG) Comments Components famotidine 20 mg tablet 2024-10 00:00: 00 10-02 00:00 :00 No [id number] Per instruc tions Per instructio ns (route: oral) Med Classific ation: Gastroint estinal Therapy Agents metoprolol tartrate 50 mg tablet 2024-10 00:00: 00 10-02 00:00 :00 No [id number] Per instruc tions TWICE DAILY Per instructio ns TWICE DAILY (route: oral) Med Classific ation: Cardiovas cular Therapy Agents meclizine 25 mg tablet 2024-10 00:00: 00 10-02 00:00 :00 No [id number] Per instruc tions TWICE DAILY NEEDED Per instructio ns TWICE DAILY NEEDED (route: oral) Med Classific ation: Gastroint estinal Therapy Agents albuterol sulfate HFA 90 mcg/actuati on aerosol inhaler 2024-10 00:00: 00 Yes [id number] 2 puff EVERY 4-6 HOURS NEEDED 2 puff EVERY 4-6 HOURS NEEDED (route: inhalation ) Med Classific ation: Respirato ry Therapy Agents docusate sodium 100 mg capsule 2024-10 00:00: 00 Yes [id number] 1 capsule 2 TIMES DAILY 1 capsule 2 TIMES DAILY (route: oral) Med Classific ation: Gastroint estinal Therapy Agents Eliquis 5 mg tablet 2024-10 00:00: 00 Yes [id number] 1 tablet 2 TIMES DAILY 1 tablet 2 TIMES DAILY (route: oral) Med Classific ation: Hematolog ical Agents famotidine 20 mg tablet 2024-10 00:00: 00 Yes [id number] 1 tablet 2 TIMES DAILY 1 tablet 2 TIMES DAILY (route: oral) Med Classific ation: Gastroint estinal Therapy Agents ferrous sulfate 325 mg (65 mg iron) tablet 2024-10 00:00: 00 Yes [id number] 1 tablet 2 TIMES DAILY 1 tablet 2 TIMES DAILY (route: oral) Med Classific ation: Electroly te Balance-N utritiona l Products loratadine 10 mg tablet 2024-10 00:00: 00 Yes [id number] 1 tablet DAILY 1 tablet DAILY (route: oral) Med Classific ation: Respirato ry Therapy Agents meclizine 25 mg tablet 2024-10 00:00: 00 Yes [id number] 1 tablet 2 TIMES DAILY 1 tablet 2 TIMES DAILY (route: oral) Med Classific ation: Gastroint estinal Therapy Agents metoprolol tartrate 50 mg tablet 2024-10 00:00: 00 Yes [id number] 1 tablet 2 TIMES DAILY 1 tablet 2 TIMES DAILY (route: oral) Med Classific ation: Cardiovas cular Therapy Agents montelukast 10 mg tablet 2024-10 00:00: 00 Yes [id number] 1 tablet DAILY 1 tablet DAILY (route: oral) Med Classific ation: Respirato ry Therapy Agents Multaq 400 mg tablet 2024-10 00:00: 00 Yes [id number] 1 tablet 2 TIMES DAILY 1 tablet 2 TIMES DAILY (route: oral) Med Classific ation: Cardiovas cular Therapy Agents octreotide, microsphere s ER 30 mg intramuscul ar susp, extended release 2024-10 00:00: 00 Yes [id number] 30 mg MONTHLY 30 mg MONTHLY (route: intramuscu lar) Med Classific ation: Endocrine omeprazole 40 mg capsule,del ayed release 2024-10 00:00: 00 Yes [id number] 1 capsule DAILY 1 capsule DAILY (route: oral) Med Classific ation: Gastroint estinal Therapy Agents oxybutynin chloride ER 10 mg tablet,exte nded release 24 hr 2024-10 00:00: 00 Yes [id number] 1 tablet BEDTIME 1 tablet BEDTIME (route: oral) Med Classific ation: Genitouri nary Therapy simvastatin 20 mg tablet 2024-10 00:00: 00 Yes [id number] 1 tablet BEDTIME 1 tablet BEDTIME (route: oral) Med Classific ation: Cardiovas cular Therapy Agents tramadol 50 mg tablet 2024-10 00:00: 00 Yes [id number] 1 tablet DAILY 1 tablet DAILY (route: oral) Med Classific ation: Analgesic , Anti-infl ammatory or Antipyret ic Tylenol Extra Strength 500 mg tablet 2024-10 00:00: 00 Yes [id number] 2 tablet EVERY 6-8 HOURS NEEDED 2 tablet EVERY 6-8 HOURS NEEDED (route: oral) Med Classific ation: Analgesic , Anti-infl ammatory or Antipyret ic Vitamin D3 25 mcg (1,000 unit) capsule 2024-10 00:00: 00 Yes [id number] 1 capsule DAILY 1 capsule DAILY (route: oral) Med Classific ation: Electroly te Balance-N utritiona l Products Vital Signs Vital Name Observation Time Observation Value Commen ts Temperature 2025-10-13 11:01:00.000 98 [degF] Temperature 2025-10-05 10:10:00.000 97.6 [degF] BMI (%) 2025-10-05 10:05:49.000 26 kg/m2 Height 2025-10-05 10:05:36.000 57 [in_us] Pulse 2025-10-13 11:01:00.000 64 /min Pulse 2025-10-06 16:12:00.000 72 /min Pulse 2025-10-05 10:10:00.000 72 /min O2 Saturation (%) 2025-10-13 11:01:00.000 99 % O2 Saturation (%) 2025-10-06 16:12:00.000 98 % O2 Saturation (%) 2025-10-05 10:10:00.000 97 % Respirations 2025-10-13 11:01:00.000 20 /min Respirations 2025-10-06 16:12:00.000 18 /min Weight (lbs) 2025-10-05 10:05:49.000 121.2 [lb_av] Systolic Blood Pressure 2025-10-13 11:01:00.000 110 mm [Hg] Systolic Blood Pressure 2025-10-06 16:12:00.000 122 mm [Hg] Systolic Blood Pressure 2025-10-05 10:10:00.000 126 mm [Hg] Diastolic Blood Pressure 2025-10-13 11:01:00.000 60 mm [Hg] Diastolic Blood Pressure 2025-10-06 16:12:00.000 70 mm [Hg] Diastolic Blood Pressure 2025-10-05 10:10:00.000 78 mm [Hg] Plan of Treatment Planned Activity Planned Date Details Comments Future Scheduled Test SKILLED NU RSE TO EVALUATE PATIENT, IDENTIFY PRIMARY AND CO-MORBID CONDITIONS CODED PER CODING GUIDELINES, AND DEVELOP PATIENT SPECIFIC PLAN OF CARE THAT INCLUDES PATIENT GOAL FOR HOME HEALTH. PLAN OF CARE TO INCLUDE 3 PRN VISIT(S) FOR OASIS DATA COLLECTION/COMPREHENSIVE ASSESSMENT AT TIMEPOINTS PER FEDERAL REGULATIONS. THIS INCLUDES VISITS FOR JARED, RECERT, SCIC, AND/OR DC. [code = SKILLED NURSE TO EVALUATE PATIENT, IDENTIFY PRIMARY AND CO-MORBID CONDITIONS CODED PER CODING GUIDELINES, AND DEVELOP PATIENT SPECIFIC PLAN OF CARE THAT INCLUDES PATIENT GOAL FOR HOME HEALTH. PLAN OF CARE TO INCLUDE 3 PRN VISIT(S) FOR OASIS DATA COLLECTION/COMPREHENSIVE ASSESSMENT AT TIMEPOINTS PER FEDERAL REGULATIONS. THIS INCLUDES VISITS FOR JARED, RECERT, SCIC, AND/OR DC.] Future Scheduled Test SKILLED NU RSE TO PROVIDE TEACHING/REINFORCEMENT RELATED TO URINARY INCONTINENCE. [code = SKILLED NURSE TO PROVIDE TEACHING/REINFORCEMENT RELATED TO URINARY INCONTINENCE.] Future Scheduled Test SKILLED NU RSE TO ASSESS ANXIETY AND PROVIDE ASSISTANCE TO PATIENT FOR UNDERSTANDING AND MANAGEMENT OF FEELINGS. [code = SKILLED NURSE TO ASSESS ANXIETY AND PROVIDE ASSISTANCE TO PATIENT FOR UNDERSTANDING AND MANAGEMENT OF FEELINGS.] Future Scheduled Test SKILLED NU RSE MAY COLLECT URINE SAMPLE FOR URINE REAGENT STRIP TESTING AND/OR URINALYSIS WITH C S 1-3 PRN IF INDICATED FOR SIGNS AND SYMPTOMS OF UTI. IF REAGENT STRIP TEST IS POSITIVE FOR UTI, SKILLED NURSE TO TAKE URINE SAMPLE TO LAB FOR URINE C S AND REPORT RESULTS TO PHYSICIAN. [code = SKILLED NURSE MAY COLLECT URINE SAMPLE FOR URINE REAGENT STRIP TESTING AND/OR URINALYSIS WITH C S 1-3 PRN IF INDICATED FOR SIGNS AND SYMPTOMS OF UTI. IF REAGENT STRIP TEST IS POSITIVE FOR UTI, SKILLED NURSE TO TAKE URINE SAMPLE TO LAB FOR URINE C S AND REPORT RESULTS TO PHYSICIAN.] Future Scheduled Test SKILLED NU RSE FOR O/A, TEACHING RELATED TO SBO FOR EARLY IDENTIFICATION OF EXACERBATION OF DISEASE PROCESS. [code = SKILLED NURSE FOR O/A, TEACHING RELATED TO SBO FOR EARLY IDENTIFICATION OF EXACERBATION OF DISEASE PROCESS.] Future Scheduled Test SKILLED NU RSE FOR O/A, TEACHING AND MANAGEMENT OF CKD FOR EARLY IDENTIFICATION OF EXACERBATION OF DISEASE PROCESS [code = SKILLED NURSE FOR O/A, TEACHING AND MANAGEMENT OF CKD FOR EARLY IDENTIFICATION OF EXACERBATION OF DISEASE PROCESS] Future Scheduled Test SKILLED NU RSE FOR O/A OF RESPIRATORY SYSTEM TO IDENTIFY CHANGES ASSOCIATED WITH EXACERBATION AND TO PROVIDE SKILLED TEACHING ON MANAGEMENT OF ASTHMA RESPIRATORY DISEASE PROCESS. [code = SKILLED NURSE FOR O/A OF RESPIRATORY SYSTEM TO IDENTIFY CHANGES ASSOCIATED WITH EXACERBATION AND TO PROVIDE SKILLED TEACHING ON MANAGEMENT OF ASTHMA RESPIRATORY DISEASE PROCESS.] Future Scheduled Test SKILLED NU RSE FOR O/A AND SKILLED TEACHING RELATED TO SIGNS AND SYMPTOMS OF INFECTION AND INFECTION CONTROL MEASURES. [code = SKILLED NURSE FOR O/A AND SKILLED TEACHING RELATED TO SIGNS AND SYMPTOMS OF INFECTION AND INFECTION CONTROL MEASURES.] Future Scheduled Test SKILLED NU RSE TO INSTRUCT/REINFORCE MEASURES TO PREVENT BARRIERS TO CARE. [code = SKILLED NURSE TO INSTRUCT/REINFORCE MEASURES TO PREVENT BARRIERS TO CARE.] Future Scheduled Test SKILLED NU RSE FOR O/A OF SELF-CARE DEFICITS AND TO PROVIDE TEACHING RELATED TO SAFE PROVISION OF ADLS. [code = SKILLED NURSE FOR O/A OF SELF-CARE DEFICITS AND TO PROVIDE TEACHING RELATED TO SAFE PROVISION OF ADLS.] Future Scheduled Test SKILLED NU RSE TO OBTAIN BLOOD SUGAR PRN FOR SIGNS AND SYMPTOMS OF HYPO/HYPERGLYCEMIA. IF OBTAINED BY PATIENT/CAREGIVER PRIOR TO VISIT AND PATIENT IS NOT SYMPTOMATIC, SKILLED NURSE TO RECORD READING FROM PATIENT LOG. [code = SKILLED NURSE TO OBTAIN BLOOD SUGAR PRN FOR SIGNS AND SYMPTOMS OF HYPO/HYPERGLYCEMIA. IF OBTAINED BY PATIENT/CAREGIVER PRIOR TO VISIT AND PATIENT IS NOT SYMPTOMATIC, SKILLED NURSE TO RECORD READING FROM PATIENT LOG.] Future Scheduled Test SKILLED NU RSE TO ASSESS HOME SAFETY FOR PATIENT WITH IMPAIRED VISION AND INSTRUCT PATIENT/CAREGIVER ON SAFETY TECHNIQUES FOR ADLS AND IADLS, MEDICATION MANAGEMENT, AND HOME ADAPTATION. [code = SKILLED NURSE TO ASSESS HOME SAFETY FOR PATIENT WITH IMPAIRED VISION AND INSTRUCT PATIENT/CAREGIVER ON SAFETY TECHNIQUES FOR ADLS AND IADLS, MEDICATION MANAGEMENT, AND HOME ADAPTATION.] Future Scheduled Test SKILLED NU RSE TO INSTRUCT PATIENT/CAREGIVER ON SIGNS AND SYMPTOMS, RISK FACTORS, COMPLICATIONS, AND MANAGEMENT OF ATRIAL FIBRILLATION. [code = SKILLED NURSE TO INSTRUCT PATIENT/CAREGIVER ON SIGNS AND SYMPTOMS, RISK FACTORS, COMPLICATIONS, AND MANAGEMENT OF ATRIAL FIBRILLATION.] Future Scheduled Test SKILLED NU RSE FOR O/A AND SKILLED TEACHING RELATED TO SIGNS AND SYMPTOMS AND MANAGEMENT OF ANEMIA. [code = SKILLED NURSE FOR O/A AND SKILLED TEACHING RELATED TO SIGNS AND SYMPTOMS AND MANAGEMENT OF ANEMIA.] Future Scheduled Test SKILLED NU RSE FOR O/A AND TEACHING OF DIABETIC MANAGEMENT INCLUDING BLOOD SUGAR MONITORING/USE OF GLUCOMETER, DIABETIC DIET, LOWER EXTREMITY SKIN INSPECTION, PROPER SKIN/FOOT CARE, AND SIGNS AND SYMPTOMS HYPO/HYPERGLYCEMIA TO REPORT. [code = SKILLED NURSE FOR O/A AND TEACHING OF DIABETIC MANAGEMENT INCLUDING BLOOD SUGAR MONITORING/USE OF GLUCOMETER, DIABETIC DIET, LOWER EXTREMITY SKIN INSPECTION, PROPER SKIN/FOOT CARE, AND SIGNS AND SYMPTOMS HYPO/HYPERGLYCEMIA TO REPORT.] Future Scheduled Test SKILLED NU RSE TO INSTRUCT PATIENT/CAREGIVER ON PREVENTION OF SEPSIS, AND SIGNS AND SYMPTOMS OF SEPSIS TO REPORT. [code = SKILLED NURSE TO INSTRUCT PATIENT/CAREGIVER ON PREVENTION OF SEPSIS, AND SIGNS AND SYMPTOMS OF SEPSIS TO REPORT.] Future Scheduled Test SKILLED NU RSE FOR O/A AND SKILLED TEACHING RELATED TO SIGNS AND SYMPTOMS AND MANAGEMENT OF ARTHRITIS [code = SKILLED NURSE FOR O/A AND SKILLED TEACHING RELATED TO SIGNS AND SYMPTOMS AND MANAGEMENT OF ARTHRITIS] Future Scheduled Test PATIENT YOUNG S A RISK OF HOSPITALIZATION AND ED USE. SKILLED NURSE TO ESTABLISH SUPPORT MEASURES TO MINIMIZE RISK OF HOSPITALIZATION AND ED USE, AND INSTRUCT PATIENT/CAREGIVER ON METHODS TO REDUCE AVOIDABLE HOSPITALIZATION AND ED USE. [code = PATIENT HAS A RISK OF HOSPITALIZATION AND ED USE. SKILLED NURSE TO ESTABLISH SUPPORT MEASURES TO MINIMIZE RISK OF HOSPITALIZATION AND ED USE, AND INSTRUCT PATIENT/CAREGIVER ON METHODS TO REDUCE AVOIDABLE HOSPITALIZATION AND ED USE.] Future Scheduled Test SKILLED NU RSE TO PROVIDE INSTRUCTION TO PATIENT/CAREGIVER RELATED TO DISCHARGE PLANNING. [code = SKILLED NURSE TO PROVIDE INSTRUCTION TO PATIENT/CAREGIVER RELATED TO DISCHARGE PLANNING.] Future Scheduled Test SKILLED NU RSE TO PERFORM ENVIRONMENTAL SAFETY RISK ASSESSMENT AND FALL RISK ASSESSMENT AND PROVIDE INSTRUCTION TO IMPLEMENT ENVIRONMENTAL SAFETY AND FALL PREVENTION STRATEGIES THROUGHOUT THE CERTIFICATION PERIOD. SKILLED NURSE WILL MAINTAIN SITUATIONAL AWARENESS AND WILL NOTIFY CLINICAL MACHINE EGG WASHER AND PHYSICIAN/PROVIDER WITH ANY CHANGE IN CONDITION. [code = SKILLED NURSE TO PERFORM ENVIRONMENTAL SAFETY RISK ASSESSMENT AND FALL RISK ASSESSMENT AND PROVIDE INSTRUCTION TO IMPLEMENT ENVIRONMENTAL SAFETY AND FALL PREVENTION STRATEGIES THROUGHOUT THE CERTIFICATION PERIOD. SKILLED NURSE WILL MAINTAIN SITUATIONAL AWARENESS AND WILL NOTIFY CLINICAL MACHINE EGG WASHER AND PHYSICIAN/PROVIDER WITH ANY CHANGE IN CONDITION.] Future Scheduled Test SKILLED NU RSE FOR OBSERVATION AND ASSESSMENT OF PATIENT S PAIN LEVEL AND EFFECTIVENESS OF PAIN MANAGEMENT REGIMEN. SKILLED NURSE TO INSTRUCT PATIENT/CAREGIVER REGARDING PHARMACOLOGIC AND NON-PHARMACOLOGIC PAIN CONTROL MEASURES. SKILLED NURSE TO REPORT TO PHYSICIAN IF PAIN LEVEL IS OUTSIDE OF ESTABLISHED PARAMETERS. [code = SKILLED NURSE FOR OBSERVATION AND ASSESSMENT OF PATIENT S PAIN LEVEL AND EFFECTIVENESS OF PAIN MANAGEMENT REGIMEN. SKILLED NURSE TO INSTRUCT PATIENT/CAREGIVER REGARDING PHARMACOLOGIC AND NON-PHARMACOLOGIC PAIN CONTROL MEASURES. SKILLED NURSE TO REPORT TO PHYSICIAN IF PAIN LEVEL IS OUTSIDE OF ESTABLISHED PARAMETERS.] Future Scheduled Test SKILLED NU RSE TO ASSESS PATIENT'S SKIN INTEGRITY AND INSTRUCT PATIENT/CAREGIVER ON MEASURES TO PREVENT PRESSURE ULCERS. [code = SKILLED NURSE TO ASSESS PATIENT'S SKIN INTEGRITY AND INSTRUCT PATIENT/CAREGIVER ON MEASURES TO PREVENT PRESSURE ULCERS.] Future Scheduled Test SKILLED NU RSE TO REVIEW PATIENT MEDICATIONS (PRESCRIPTION/OTC). INSTRUCT PATIENT/CAREGIVER ON ALL MEDICATIONS INCLUDING PURPOSE, WHEN TO TAKE, IMPORTANCE OF MEDICATION ADHERENCE, MONITORING OF EFFECTIVENESS, ADVERSE DRUG REACTIONS, POSSIBLE SIDE EFFECTS, AND WHEN TO NOTIFY AGENCY OR PHYSICIAN/PROVIDER OF ANY CONCERNS. [code = SKILLED NURSE TO REVIEW PATIENT MEDICATIONS (PRESCRIPTION/OTC). INSTRUCT PATIENT/CAREGIVER ON ALL MEDICATIONS INCLUDING PURPOSE, WHEN TO TAKE, IMPORTANCE OF MEDICATION ADHERENCE, MONITORING OF EFFECTIVENESS, ADVERSE DRUG REACTIONS, POSSIBLE SIDE EFFECTS, AND WHEN TO NOTIFY AGENCY OR PHYSICIAN/PROVIDER OF ANY CONCERNS.] Goal Patient Goal - GET STRONGER Goal Provider Goal - A PLAN OF CARE WILL BE ESTABLISHED THAT MEETS PATIENT'S FDC NEEDS AND INCLUDES PATIENT GOAL FOR HOME HEALTH. Goal Provider Goal - PATIENT / CAREGIVER WILL VERBALIZE UNDERSTANDING OF EFFECTS OF URINARY INCONTINENCE BY THE END OF THE CERTIFICATION PERIOD. Goal Provider Goal - SYMPTOMS OF ANXIETY ARE IDENTIFIED AND INTERVENTIONS INITIATED TO ENABLE PATIENT TO UNDERSTAND AND MANAGE FEELINGS THROUGHOUT EPISODE. Goal Provider Goal - URINE SPECIMEN WILL BE OBTAINED PRN FOR SIGNS AND SYMPTOMS OF UTI AND RESULTS WILL BE REPORTED TO PHYSICIAN THROUGHOUT THE CERTIFICATION PERIOD. Goal Provider Goal - EXACERBATIONS OF SBO GASTROINTESTINAL DISEASE WILL BE PROMPTLY IDENTIFIED AND INTERVENTIONS IMPLEMENTED TO MINIMIZE RISKS TO PATIENT BY END OF EPISODE. Goal Provider Goal - PATIENT/CAREGIVER WILL VERBALIZE UNDERSTANDING OF GENITOURINARY DISEASE PROCESS, AND EXACERBATIONS OF GENITOURINARY DISEASE WILL BE PROMPTLY IDENTIFIED FOR EARLY INTERVENTION THROUGHOUT THE CERTIFICATION PERIOD. Goal Provider Goal - PATIENT/CAREGIVER WILL VERBALIZE/DEMONSTRATE MANAGEMENT OF ASTHMA RESPIRATORY DISEASE PROCESS. CHANGES IN RESPIRATORY STATUS WILL BE IDENTIFIED AND REPORTED TO PHYSICIAN FOR PROMPT INTERVENTION THROUGHOUT THE CERTIFICATION PERIOD. Goal Provider Goal - PATIENT/CAREGIVER WILL VERBALIZE/DEMONSTRATE UNDERSTANDING OF S/S OF INFECTION AND INFECTION CONTROL MEASURES. SIGNS AND SYMPTOMS OF INFECTION WILL BE IDENTIFIED AND PHYSICIAN NOTIFIED FOR PROMPT INTERVENTION THROUGHOUT THE CERTIFICATION PERIOD. Goal Provider Goal - PATIENT / CAREGIVER WILL VERBALIZE UNDERSTANDING OF BARRIERS PREVENTING PROPER CARE AND DEMONSTRATE MEASURES TO ELIMINATE THOSE BARRIERS DURING THIS EPISODE. Goal Provider Goal - PATIENT/CAREGIVER WILL VERBALIZE/DEMONSTRATE UNDERSTANDING OF SAFE PROVISION OF ADLS BY THE END OF THE CERTIFICATION PERIOD. Goal Provider Goal - BLOOD SUGAR READING WILL BE OBTAINED ORDERED THROUGHOUT CERTIFICATION PERIOD. Goal Provider Goal - PATIENT/CAREGIVER WILL BE ABLE TO APPLY PRINCIPLES OF ENVIRONMENTAL MODIFICATION TO MAINTAIN THE LEVEL OF SAFETY FOR THE LOW VISION PATIENT WITHIN THE HOME SETTING AND PREVENT FALL/INJURY THIS EPISODE Goal Provider Goal - PATIENT/CAREGIVER WILL VERBALIZE UNDERSTANDING OF SIGNS AND SYMPTOMS, COMPLICATIONS, AND MANAGEMENT OF ATRIAL FIBRILLATION THROUGHOUT THE CERTIFICATION PERIOD. Goal Provider Goal - PATIENT/CARGIVER WILL VERBALIZE UNDERSTANDING OF ANEMIA INCLUDING SIGNS AND SYMPTOMS, MANAGEMENT OF COMPLICATIONS, AND PRESCRIBED TREATMENT REGIMEN BY END OF EPISODE. Goal Provider Goal - PATIENT/CAREGIVER WILL VERBALIZE/DEMONSTRATE KNOWLEDGE OF DIABETIC MANAGEMENT. CHANGES IN DIABETIC STATUS WILL BE IDENTIFIED AND REPORTED TO PHYSICIAN FOR PROMPT INTERVENTION THROUGHOUT THE CERTIFICATION PERIOD. Goal Provider Goal - PATIENT WILL BE FREE FROM INFECTION AND PATIENT/CAREGIVER WILL VERBALIZE UNDERSTANDING OF SIGNS AND SYMPTOMS AND METHODS TO PREVENT SEPSIS BY END OF THE EPISODE. Goal Provider Goal - PATIENT/CAREGIVER WILL VERBALIZE UNDERSTANDING OF ARTHRITIS MUSCULOSKELETAL DISEASE INCLUDING SIGNS AND SYMPTOMS, MANAGEMENT, AND PRESCRIBED TREATMENT REGIMEN BY END OF EPISODE. Goal Provider Goal - PATIENT WILL HAVE SUPPORT MEASURES ESTABLISHED TO PREVENT HOSPITALIZATION AND ED USE AND PATIENT/CAREGIVER WILL VERBALIZE/DEMONSTRATE METHODS TO REDUCE AVOIDABLE HOSPITALIZATION AND ED USE BY END OF EPISODE. Goal Provider Goal - PATIENT/CAREGIVER WILL VERBALIZE UNDERSTANDING OF DISCHARGE PLANNING INSTRUCTIONS BY DATE OF DISCHARGE. Goal Provider Goal - PATIENT/CAREGIVER WILL VERBALIZE/DEMONSTRATE EFFECTIVE ENVIRONMENTAL SAFETY AND FALL PREVENTION STRATEGIES, WILL REMAIN SAFE IN THE COMMUNITY, AND WILL BE FREE OF DANGER TO SELF AND OTHERS THROUGHOUT THE CERTIFICATION PERIOD. Goal Provider Goal - PATIENT/CAREGIVER WILL DEMONSTRATE UNDERSTANDING OF PHARMACOLOGIC AND NONPHARMACOLOGIC PAIN CONTROL MEASURES AND PATIENT WILL HAVE IMPROVEMENT IN PAIN INTERFERING WITH ACTIVITY EVIDENCED BY PAIN AT A LEVEL THAT IS ACCEPTABLE TO THE PATIENT AND PAIN LEVEL WITHIN ESTABLISHED PARAMETERS BY END OF CERTIFICATION PERIOD. Goal Provider Goal - PATIENT/CAREGIVER WILL VERBALIZE UNDERSTANDING OF PRESSURE ULCER PREVENTION BY END OF THE EPISODE. Goal Provider Goal - PATIENT/CAREGIVER WILL VERBALIZE UNDERSTANDING OF EDUCATION PROVIDED ON MEDICATIONS BY THE END OF THE CERTIFICATION PERIOD. Encounters Start Date/Time End Date/Time Encounter Type Admission Type Attending Clinicians Care Facility Care Department Encounter ID Discharge Date Discharge Status Discharge Condition Discharge Reason Percent Goals Met 2025-10-02 00:00:00 2025-11-30 00:00:00 Outpatient NEW ADMISSION SHANNEN JURADO [facility] [id number] [id number]
== END 2025-10-17 14:26 | disposition home or self-care (01) ==
LOC: HO.HGI 13:42
PROVIDERS: PCP Internal Medicine; Visit Provider Nurse Practitioner Family
DX: K56.609 Unspecified intestinal obstruction, unspecified as to partial versus complete obstruction (principal); K59.00 Constipation, unspecified; K21.9 Gastro-esophageal reflux disease without esophagitis; D3A.8 Other benign 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 tumors; K82.8 Other specified diseases of gallbladder; K64.9 Unspecified hemorrhoids
CPT/HCPCS: 99214

== ENCOUNTER → 2025-10-17 13:42 | Outpatient (BNVA) | payer MEDICARE, MEDICAID, SELFPAY | PROVIDERS: PCP Internal Medicine; Visit Provider Nurse Practitioner Family | DX: K56.609 Unspecified intestinal obstruction, unspecified as to partial versus complete obstruction (principal); K59.09 Other constipation; K21.9 Gastro-esophageal reflux disease without esophagitis; K82.8 Other specified diseases of gallbladder; D3A.8 Other benign 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 tumors; Z09 Encounter for follow-up examination after completed treatment for conditions other than malignant neoplasm; K64.9 Unspecified hemorrhoids | CPT/HCPCS: 99212 ==